=== PATIENT | female | born 1955 | race Caucasian/White ===

== ENCOUNTER 2023-09-17 10:00 | Outpatient (RCR) | payer MEDICARE, BC, SELFPAY | END 2023-11-18 10:12 | disposition home or self-care (01) | LOC: HO.PR 10:00 | PROVIDERS: PCP Internal Medicine; Visit Provider Internal Medicine | DX: J84.10 Pulmonary fibrosis, unspecified (principal) | CPT/HCPCS: 94761; 99215; G0237; G0239 ==

== ENCOUNTER 2023-11-25 13:10 | Emergency (ER) | payer MEDICARE, BC, SELFPAY ==
--- NOTE | ~2023-11-25 | CT_ITS ---
EXAMINATION: CT ANGIOGRAM OF THE CHEST WITH AND WITHOUT CONTRAST (CT PULMONARY ANGIOGRAM FOR PE) CLINICAL INFORMATION: Reason for Exam L sided pleuritic chest pain COMPARISON: None available. TECHNIQUE: Prior to contrast administration, noncontrast localization images were obtained. Subsequently, multidetector volumetric imaging was performed from the thoracic inlet to below the diaphragms following the administration of 80 mL Omnipaque 350 intravenous contrast. No contrast reaction reported Sagittal, coronal, and MIP oblique sagittal reformatted images were obtained on the CT workstation, uploaded to PACS, and reviewed. This CT examination was performed using dose optimization techniques as appropriate, variously including the following: *Automated exposure control *Adjustment of mA and/or kV according to patient size (this includes techniques or standardized protocols for targeted exams where dose is matched to indication/reason for exam; i.e. extremities or head) *Use of iterative reconstruction technique Total exam dose-length product 489 mGy-cm FINDINGS: QUALITY OF STUDY/CONTRAST BOLUS: Satisfactory. PULMONARY ARTERIES: No pulmonary emboli. THORACIC AORTA: No aneurysm. LUNG: No focal consolidation, nodules or masses. PLEURA: No pleural effusion or pneumothorax. MEDIASTINUM: The thyroid lobes are symmetrical and normal. The central trachea and the bronchi widely patent. Heart size and the great vessels are normal caliber. No pericardial effusion seen. No evidence of septal bowing or right heart strain. CORONARY ARTERY CALCIFICATION: None visualized on this study. CHEST WALL/AXILLA: No axillary or internal mammary lymphadenopathy. OSSEOUS STRUCTURES: No aggressive lytic or sclerotic process seen. UPPER ABDOMEN: Visualized liver, spleen, pancreas and bilateral adrenal glands are unremarkable. The gallbladder has been surgically removed. There is nonobstructive 3 mm radiopaque calculi upper pole left kidney. No reflux of contrast into the hepatic veins to suggest elevated right heart pressures. CT/CT angio chest PE protocol IMPRESSION: 1. No evidence of PE. 2. No evidence of aortic aneurysm. 3. The lungs are clear. 4. Suspect small nonobstructive radiopaque calculi upper pole left kidney. VTE: negative.
--- NOTE | ~2023-11-25 | XR_ITS ---
EXAMINATION: XR CHEST CLINICAL INFORMATION: Chest pain and shortness of breath. COMPARISON: None available. TECHNIQUE: Frontal view of the chest was obtained. FINDINGS: The trachea is in normal anatomic position. Heart size appears normal for this projection. There is no consolidation within either lung. No pleural effusion. No pneumothorax. There are surgical clips overlying the right upper quadrant. There are surgical changes status post ACDF. XR/XR chest 1V IMPRESSION: No acute cardiopulmonary disease.
--- NOTE | ~2023-11-25 | US_ITS ---
EXAMINATION: US VENOUS ULTRASOUND WITH DOPPLER LOWER EXTREMITY, LEFT CLINICAL INFORMATION: Left leg pain. COMPARISON: 04/13/2022 TECHNIQUE: Ultrasound of the deep veins is performed from the hip to the calf with compression sonography and color and pulse Doppler assessment. Spectral analysis with color-flow imaging is performed. Technical limitations due to patient's body habitus. FINDINGS: There is normal venous compression and respiratory variation and augmented flow. The visualized common femoral vein, superficial femoral vein, profunda femoral vein, popliteal vein, and the trifurcation region shows no evidence of deep venous thrombosis. If the patient's symptoms persist, followup ultrasound in 5 days 7 days might be of value to exclude proximal propagation from a non-visualized calf vein. US/US venous duplex LE LT IMPRESSION: No DVT demonstrated in the left lower extremity.
--- NOTE | 2023-11-25 13:16 | ECG_ITS ---
Test Reason : PAIN Blood Pressure : / mmHG Vent. Rate : 074 BPM Atrial Rate : 074 BPM P-R Int : 138 ms QRS Dur : 084 ms QT Int : 402 ms P-R-T Axes : 038 -05 010 degrees QTc Int : 446 ms Normal sinus rhythm with sinus arrhythmia Cannot rule out Inferior infarct , age undetermined Abnormal ECG No previous ECGs available Referred By: Elliot Weaver Electronically Signed By:COURTNEY TRIANA MD
--- NOTE | 2023-11-25 13:18 | ED.GENADULT ---
HPI - General Adult General Chief complaint: Dyspnea Stated complaint: lung pain Time Seen by Provider: 11/25/23 13:30 Source: patient and old records reviewed Mode of arrival: ambulatory Limitations: no limitations History of Present Illness HPI narrative: 68 yo female with PMH of ILD, lupus on plaquenil daily methylpred, prior PE not on thinners, CVA, brain aneurysm, HTN, hypothyroidism, hx of mid cerebral artery dissection 2015 no longer on thinners here with c/o L arm pain and L posterior back pain with difficulty breathing and left calf pain for 2 days. No fevers, no cough. Hurts to take a deep breath. Wears 2L NC while sleeping. complaint: L pleuritic chest pain Onset (ago): day(s) (2) Location: chest Radiation: non-radiation Severity: severe Quality: stabbing Pain Consistency: intermittent Relieving factors: none Exacerbating factors: movement and other (inspiration) Associated symptoms: shortness of breath Treatments prior to arrival: none Related Data Previous Rx's Medication Instructions Recorded benzonatate 200 mg capsule 200 mg PO TID PRN cough #30 caps 11/25/23 morphine 15 mg immediate release 15 mg PO Q8H PRN pain #15 tabs 11/25/23 tablet Allergies Allergy/AdvReac Type Severity Reaction Status Date / Time rofecoxib [From Vioxx] Allergy Unknown Verified 11/25/23 13:16 [id number]-[id number] Reductase Allergy Muscle Verified 11/25/23 13:16 Inhibitor cramps Review of Systems Review of Systems: Constitutional : No Weight loss, No Fever, No Chills ENT/Mouth : No sore throat, No Rhinorrhea Eyes: No Eye Pain, No Swelling Cardiovascular : pos Chest Pain, pos SOB, pos Dyspnea on Exertion, No Orthopnea, No Edema, No Palpitations Respiratory : No Cough, No Sputum Gastrointestinal : pos Nausea, No Vomiting, No Diarrhea, No abdominal Pain, No Hematochezia, No Melena Genitourinary : No Dysuria, No Urinary Frequency Musculoskeletal : No joint pain, No Myalgias, No Joint Swelling, pos calf pain Skin : No Skin Lesions, No rash Neuro : pos Weakness, No Numbness, No Dizziness, No Headache Psych : No Anxiety/Panic, No Depression Heme/Lymph: No Bruising, No Lymphadenopathy Endocrine : No Polyuria, No Polydipsia All other systems reviewed and are negative [facility] Social History Social History Alcohol intake: current Alcohol intake frequency: holidays/special occasions only Smoked in Last 30 Days: No Use of substances other than those prescribed or required for medical reasons: No Advance Directives: No Advance Directives Information Provided: No Physical Exam ED Vital Signs: Vital Signs - 24 hr 11/25/23 13:21 11/25/23 14:25 11/25/23 15:28 Temperature 98.0 F 98.2 F Pulse Rate 89 76 107 H Respiratory Rate 25 H 21 H 18 Blood Pressure 155/80 H 166/70 H Pulse Oximetry 98 93 Oxygen Delivery Method Room Air Room Air 11/25/23 17:57 Temperature 98.0 F Pulse Rate 83 Respiratory Rate 16 Blood Pressure 125/60 Pulse Oximetry 93 Oxygen Delivery Method Room Air BMI result Body Mass Index 38.2 Appearance: Alert. Oriented X3. Mild acute distress. Eyes: Pupils equal, round and reactive to light. ENT: Pharynx normal. Neck: Normal inspection. Neck supple. CVS: Normal heart rate and rhythm. Pulses normal. Respiratory: Mild respiratory distress - tachypnea and retractions. Breath sounds very diminished bilaterally splinting on L side Abdomen: Soft and non-tender. Skin: Skin warm and dry. Normal skin color. Normal skin turgor. Extremities: trace bilateral ankle pitting lower extremity edema. c/o L calf ttp Neuro: Oriented X 3. No motor deficit. No sensory deficit. Course Course Course Narrative: RME: 68 yold female with pmh of PE, Instertial lung disease, and MS presents to the ED for SOB and pleurisy for the past two days with cough. Vitals stable, but patient seems to be working to breath. labs and chest xray ordered. Charge nurse informed to bring patient to the ED as soon as possible. Reevaluation(s) Reevaluation #1: states she needs pretreatment for contrast - benadryl and hydrocortisone ordered Reevaluation #2: signed out to Dr. Florentino Medications Administered Discontinued Medications Generic Name Dose Route Start Last Admin Trade Name Freq PRN Reason Stop Dose Admin Albuterol Sulfate 2.5 mg/ 0 mg 11/25/23 14:14 11/25/23 14:25 Albuterol/Ipratropium 3 ml INHALE 11/25/23 14:15 Not Given ONCE ONE Levalbuterol HCl 2.5 mg/ 0 mg 11/25/23 14:18 11/25/23 14:23 Ipratropium Wiley 0.5 mg INHALE 11/25/23 14:19 5 dose ONCE ONE Administration Diphenhydramine HCl 50 mg 11/25/23 15:12 11/25/23 15:23 Diphenhydramine Hcl 50 Mg/Ml Vial IVPUSH 11/25/23 15:13 50 mg ONCE ONE Administration Hydrocortisone Sodium Succinate 100 mg 11/25/23 15:12 11/25/23 15:23 Hydrocortisone Sod Succ/Pf 100 Mg Vial IVPUSH 11/25/23 15:13 100 mg ONCE ONE Administration Iohexol 65 ml 11/25/23 16:15 11/25/23 16:16 Iohexol 350 Mg/Ml 100 Ml Infus..Btl IV 11/25/23 16:16 65 ml ONCE ONE Administration Morphine Sulfate 2 mg 11/25/23 13:58 11/25/23 14:19 Morphine Sulfate 2 Mg/Ml Cartridge IVPUSH 11/25/23 13:59 2 mg ONCE ONE Administration Protocol Morphine Sulfate 4 mg 11/25/23 17:46 11/25/23 17:56 Morphine Sulfate 4 Mg/Ml Cartridge IVPUSH 11/25/23 17:47 4 mg ONCE ONE Administration Protocol Ondansetron HCl 4 mg 11/25/23 13:58 11/25/23 14:19 Ondansetron Hcl 4 Mg/2 Ml Vial IVPUSH 11/25/23 13:59 4 mg ONCE ONE Administration Medical Decision Making Medical Decision Making MDM Narrative: 68 yo female with PMH of ILD, lupus on plaquenil daily methylpred, prior PE not on thinners, CVA, brain aneurysm, HTN, hypothyroidism, hx of mid cerebral artery dissection 2015 no longer on thinners here with 2 days of L posterior pleuritic thoracic pain no infectious symptoms and c/o L calf pain at this time EKG, labs, bronch protocol low dose morphine she is already finishing a methlprednisolone taper. She will get CTA PE given high risk for VTE. DVT study of LLE ordered. IV morphine for pain ordered. Patient's CTA chest negative for PE likely patient had pleuritic chest pain secondary to lupus and fibrosis discharge patient home advised to follow with purchasing coordinator Differential Diagnosis Differential Diagnoses: The differential diagnosis associated with the presentation includes pleurisy, VTE, pneumonia Admission/Observation Consideration of admission/observation: Escalation of care including admission/observation considered Lab Data MDM Lab Attestation statement: I reviewed the patient's lab results. 11/25/23 14:30 11/25/23 14:31 Labs: Lab Results 11/25/23 11/25/23 11/25/23 Range/Units 14:30 14:31 14:34 WBC 11.8 H (4.8-10.8) X10*3/uL RBC 5.30 (4.20-5.50) X10*6/uL Hgb 14.0 (12.0-16.0) g/dl Hct 43.5 (37.0-47.0) % MCV 82.1 (80.0-98.0) fL MCH 26.4 L (27.0-33.0) pg MCHC 32.2 (31.0-35.0) g/dl RDW 14.6 (11.0-16.0) % Plt Count 268 (160-400) X10*3/uL MPV 9.0 L (9.4-12.3) fL Immature Gran % (Auto) 1.4 H (0.0-0.4) % Neut % (Auto) 76.2 H (45-73) % Lymph % (Auto) 15.0 L (20-40) % Luce % (Auto) 6.8 (2-11) % Eos % (Auto) 0.3 (0-4) % Baso % (Auto) 0.3 (0-2) % Lymph # (Auto) 1.8 (1.2-4.9) X10*3/uL Luce # (Auto) 0.8 (0.1-1.2) X10*3/uL Eos # (Auto) 0.0 (0.0-0.4) X10*3/uL Baso # (Auto) 0.0 (0.0-0.2) X10*3/uL Abs Immat Gran (auto) 0.17 H (0.00-0.03) X10*3/uL Absolute Neuts (auto) 9.0 H (2.0-8.3) x10*3/uL Absolute Nucleated RBC 0.000 (0.0-0.012) X10*3/uL Nucleated RBC % (auto) 0.0 (0.0-0.2) /100WBC PT 10.7 L (11.1-13.3) SEC INR 0.9 (0.9-1.1) APTT 23.2 L (26.0-36.8) SEC Sodium 145 (135-145) mmol/L Potassium 3.8 (3.3-5.1) mmol/L Chloride 110 H (96-108) mmol/L Carbon Dioxide 27 (22-29) mmol/L Anion Gap 12 (12-20) BUN 15 (9-16) mg/dL Creatinine 0.67 (0.5-1.4) mg/dL Estim Creat Clear Calc 96.9 Estimated GFR > 60 Random Glucose 102 (60-115) mg/dL Calcium 9.8 (8.4-10.2) mg/dL Total Bilirubin 0.4 (0.0-1.0) mg/dL AST 9 (5-31) U/L ALT 12 (0-31) U/L Alkaline Phosphatase 71 (39-117) U/L Troponin I High Sens < 2.7 (<3.5-17.0) ng/L B-Natriuretic Peptide 49 (<100) pg/mL Total Protein 6.5 (6.5-8.0) g/dL Albumin 3.9 (3.5-5.0) g/dL Influenza Type A (PCR) NEGATIVE (Negative) Influenza Type B (PCR) NEGATIVE (Negative) RSV RNA Qual (PCR) NEGATIVE (Negative) SARS-CoV-2 RNA (RT-PCR) NEGATIVE (Negative) Independent Interpretation I performed an independent interpretation of an: EKG, Plain X-Ray (normal ), Ultrasound (no DVT) and CT Scan Interpretation: Rate: 74 Rhythm: NSR [facility]: left Normal P waves. Normal GERARDO. Normal QRS complex. ST T wave : no ELA, inverted t wave III and V1 qTC: 446 prior studies: no acute ischemia The study has been interpreted contemporaneously by me. . Radiology Impression Discussion of test interpretation with radiology: I have reviewed the radiologist's reading. Discharge Plan Discharge Clinical Impression: Pleuritic chest pain Patient Disposition: Home, Self-Care Instructions: Pleurisy (ED) Additional Instructions: Take pain medication as prescribed Follow-up with your lung specialist Continue rest of your medication Prescriptions: New morphine 15 mg tablet 15 mg PO Q8H PRN (Reason: pain) Qty: 15 0RF Rx Instructions: Partial Fill upon patient request. benzonatate 200 mg capsule 200 mg PO TID PRN (Reason: cough) Qty: 30 0RF Referrals: Kyrie Bliss MD [Physician] - 2 weeks Interventions: ED Discharge Assessment Last Done: 11/25/23 19:21 Discharge Date/Time: 11/25/23 19:21
[2023-11-25 13:21] VITALS: BP 155/80; PULSE 89; RESP 25; TEMP 36.7; O2SAT 98; BMI 38.2
[2023-11-25] MEDS: Morphine Sulfate 2 MG/ML CARTRIDGE IVPUSH (14:19)
[2023-11-25] MEDS: ondansetron HCL 4 MG/2 ML VIAL IVPUSH (14:19)
[2023-11-25] MEDS: levalbuterol HCL 2.5 MG, Ipratropium Bromide 0.5 MG INHALE (14:23)
[2023-11-25 14:25] VITALS: PULSE 76; RESP 21; O2SAT 97
[2023-11-25 14:35] LABS: MANUAL DIFF FLAG NO
[2023-11-25 14:40] LABS: Basophils Percent Auto 0.3 % (0-2); Eosinophils Percent Auto 0.3 % (0-4); Hematocrit 43.5 % (37.0-47.0); Imm Gran Abs Auto 0.17 X10*3/uL (0.00-0.03); Imm Gran Pct Auto 1.4 % (0.0-0.4); Lymphocytes Absolute Auto 1.8 X10*3/uL (1.2-4.9); Mean Corpuscular HGB Conc 32.2 g/dl (31.0-35.0); Mean Corpuscular Hemoglobin 26.4 pg (27.0-33.0); Mean Corpuscular Volume 82.1 fL (80.0-98.0); Monocytes Absolute Auto 0.8 X10*3/uL (0.1-1.2); Monocytes Percent Auto 6.8 % (2-11); Neutrophils Percent Auto 76.2 % (45-73); Platelet Count 268 X10*3/uL (160-400); Red Cell Distribution Width 14.6 % (11.0-16.0); White Blood Count 11.8 X10*3/uL (4.8-10.8)
[2023-11-25 15:00] LABS: B Type Natriuretic Peptide 49 pg/mL (<100)
[2023-11-25 15:01] LABS: INTERNATIONAL NORM RATIO 0.9 (0.9-1.1); Prothrombin Time 10.7 SEC (11.1-13.3); Troponin-I High Sensitivity < 2.7 ng/L (<3.5-17.0)
[2023-11-25 15:02] LABS: Alanine Aminotransferase 12 U/L (0-31); Albumin Level 3.9 g/dL (3.5-5.0); Alkaline Phosphatase 71 U/L (39-117); Anion Gap 12 (12-20); Aspartate Amino Transferase 9 U/L (5-31); Bilirubin Total 0.4 mg/dL (0.0-1.0); Blood Urea Nitrogen 15 mg/dL (9-16); Calcium 9.8 mg/dL (8.4-10.2); Carbon Dioxide 27 mmol/L (22-29); Chloride 110 mmol/L (96-108); Creatinine Clr Calc Pharmacy 96.9; Estimated Glomerular Filt Rate > 60; Glucose Random 102 mg/dL (60-115); Potassium 3.8 mmol/L (3.3-5.1); Sodium 145 mmol/L (135-145); Total Protein 6.5 g/dL (6.5-8.0)
[2023-11-25 15:06] LABS: Partial Thromboplastin Time 23.2 SEC (26.0-36.8)
[2023-11-25] MEDS: diphenhydrAMINE HCL 50 MG/ML VIAL IVPUSH (15:23)
[2023-11-25] MEDS: Hydrocortisone Sod Succ/PF 100 MG VIAL IVPUSH (15:23)
[2023-11-25 15:28] VITALS: BP 166/70; PULSE 107; RESP 18; TEMP 36.8; O2SAT 93
--- NOTE | 2023-11-25 15:33 | PC.NURSE ---
vss and up to date aside from being tachycardic. sinus tachy on the technology lead. pt verbalizing pain level decreased to a 5/10 post medication administration. medication also administered per provider order. pt waiting for ultrasound results at this time. bedside for support. plan of care ongoing. call rondon placed within reach.
[2023-11-25 15:34] LABS: Influenza A PCR NEGATIVE (Negative); Influenza B PCR NEGATIVE (Negative); Resp Syncy Virus RNA Qual PCR NEGATIVE (Negative); SARS COV2 PCR INHOUSE NEGATIVE (Negative)
--- NOTE | 2023-11-25 16:06 | PC.NURSE ---
pt to CT at this time.
[2023-11-25] MEDS: iohexoL 350 MG/ML 100 ML INFUS..BTL 65 ML IV (16:16)
[2023-11-25] MEDS: Morphine Sulfate 4 MG/ML CARTRIDGE IVPUSH (17:56)
[2023-11-25 17:57] VITALS: BP 125/60; PULSE 83; RESP 16; TEMP 36.7; O2SAT 93
== END 2023-11-25 19:21 | disposition home or self-care (01) ==
PROVIDERS: Physician Assistant; Emergency Provider Internal Medicine; PCP Internal Medicine Nephrology
DX: R07.81 Pleurodynia (principal); M79.662 Pain in left lower leg; I10 Essential (primary) hypertension; Z86.711 Personal history of pulmonary embolism; Z86.73 Personal history of transient ischemic attack (TIA), and cerebral infarction without residual deficits; Z11.52 Encounter for screening for COVID-19; Z20.828 Contact with and (suspected) exposure to other viral communicable diseases
CPT/HCPCS: 0241U; 71045; 71275; 80053; 83880; 84484; 85025; 85610; 85730; 93005; 93971; 94640; 96374; 96375; 96376; 99285; J1200; J1720; J2270; J2405; Q9967

== ENCOUNTER → 2023-11-25 13:16 | Outpatient (BNV) | payer MEDICARE, BC, SELFPAY | PROVIDERS: Emergency Provider Emergency Medicine; PCP Internal Medicine Nephrology; Visit Provider Internal Medicine Cardiovascular Disease | DX: R94.31 Abnormal electrocardiogram [ECG] [EKG] (principal) | CPT/HCPCS: 93010 ==

== ENCOUNTER 2024-01-17 13:33 | Outpatient (AMB) | payer MEDICARE, BC, SELFPAY ==
--- NOTE | 2024-01-17 13:37 | MHC.OFFVIS ---
Vital Signs 01/17/24 13:38 Height 5 ft 6.5 in Weight 240 lb 4.862 oz BMI 38.2 Pulse 84 Pulse Source Pulse Oximeter Pulse Oximetry (%) 97 Oxygen Delivery Method Room Air Intake Visit Reasons: lung pain Nurse Auditor Required: No Allergies rofecoxib [From Vioxx] Allergy (Verified 01/17/24 13:39) Unknown [id number] Reductase Inhibitor Allergy (Verified 01/17/24 13:39) Muscle cramps HPI Comments Details: The patient is here for pulmonary evaluation. The patient is a 68 year woman with a known history of lupus in addition to underlying pulmonary fibrosis. The patient did have a severe case of COVID requiring hospital level of care. CT scan during that admission back in 2020 demonstrated evidence of ground-glass opacities. Subsequent imaging studies demonstrated reticular changes consistent with pulmonary fibrosis. In the meantime the patient does follow-up the arthritis center for her connective tissue disease. He was diagnosed with lupus. Currently on hydrochloroquine. She continues to have significant musculoskeletal discomfort inflammatory arthritis. The patient back in November 2023 develop worsening chest pain in addition to shortness of breath. She was brought to the [facility] ER where she was evaluated. She had a CTA that I personally reviewed. No evidence of any pulmonary emboli. Although the patient did have significant pneumonitis in addition to pleural thickening suggesting a pleuritis related to her underlying connective tissue disease. She responded to additional Medrol therapy. At this point the patient continues to have pleuritic chest pain and shortness of breath. Although better overall. She was hoping to start immunomodulator therapy such as mycophenolate. In the past she had been offered other immuno modulator such as methotrexate but she was concerned about the potential side effects. Explained to her the mycophenolate also has significant side effects although better option then being on the chronic steroids. Will have to monitor closely her laboratories while she is on it. Therefore she will have blood work before she begins it. Will start slowly and workup to the lowest most effective dose. In addition to that the patient will have additional blood work done to assess for other etiologies for the pneumonitis. The patient also should have a repeat CT scan of the chest to assess the response to the immunomodulator therapy. [facility] Medical History (Updated 01/19/24 @ 21:14 by Kyrie Bliss MD) Asthma Lupus Pneumonitis Pulmonary fibrosis Social History Alcohol intake: current Alcohol intake frequency: holidays/special occasions only Review of Systems Const Denies fever(s) Eyes Denies change in vision ENT Reports dysphagia and Reports nasal congestion Card Denies chest pain and Reports dyspnea on exertion Resp Reports cough and Reports dyspnea on exertion GI Reports dysphagia Musc Reports myalgias Skin/Breast Denies rash Neuro Reports no additional complaints Sheldon/Lymph Denies easy bleeding Physical Exam Vital Signs: Last Vital Signs Pulse 84 01/17/24 13:38 Pulse Ox 97 01/17/24 13:38 Oxygen Delivery Method Room Air 01/17/24 13:38 BMI result Body Mass Index 38.2 Const General: comfortable Orientation/consciousness: patient oriented x3 HEENT Head: Yes normocephalic Neck Neck: Yes supple Chest Chest palpation & inspection: normal inspection of the chest Resp Effort & Inspection: normal respiratory effort Auscultation: crackles bilateral (end inspiratory) at the base Cardio Heart sounds: S1 normal heart sound present and S2 normal heart sound present GI Palpation (GI): Soft to palpation Skin General skin exam: no rashes or lesions noted Neuro General: patient oriented x3 Extrem General: Yes edema Results Reviewed Results Reviewed: personally reviewed CT chest 2020, 2021 from [facility]. 2022 CT chest from [facility] with pneumonitis (not mentioned on the report) Assessment & Plan Assessment & Plan (1) Pulmonary fibrosis: Code(s): J84.10 - Pulmonary fibrosis, unspecified Category: Medical (2) Pneumonitis: Code(s): J98.4 - Other disorders of lung Category: Medical (3) Lupus: Code(s): M32.9 - Systemic lupus erythematosus, unspecified Category: Medical (4) Asthma: Code(s): J45.909 - Unspecified asthma, uncomplicated Category: Medical Qualifiers: Asthma severity: mild Asthma persistence: intermittent Asthma complication type: uncomplicated Qualified Code(s): J45.20 - Mild intermittent asthma, uncomplicated Plan Bloodwork start Cellcept 500mg-> BID continue medrol CAROL as needed continue singulair continue OFEV if pulmonary fibrosis is progressive CT chest 2 months F/U 2 months Orders: Orders Complete Blood Count Auto Diff 01/17/24 J69.0 - Pneumonitis due to inhalation of food and vomit, J84.10 - Pulmonary fibrosis, unspecified Immunoglobulins,IgG IgA IgM 01/17/24 J69.0 - Pneumonitis due to inhalation of food and vomit, J84.10 - Pulmonary fibrosis, unspecified Angiotensin Converting Enzyme 01/17/24 J69.0 - Pneumonitis due to inhalation of food and vomit, J84.10 - Pulmonary fibrosis, unspecified Scleroderma 70 Antibody 01/17/24 J69.0 - Pneumonitis due to inhalation of food and vomit, J84.10 - Pulmonary fibrosis, unspecified Liver Panel 01/17/24 J69.0 - Pneumonitis due to inhalation of food and vomit, J84.10 - Pulmonary fibrosis, unspecified T Spot TB 01/17/24 J69.0 - Pneumonitis due to inhalation of food and vomit, J84.10 - Pulmonary fibrosis, unspecified CT chest wo IV con 6 Weeks J98.4 - Other disorders of lung Overnight Pulse Oximetry 01/17/24 J84.10 - Pulmonary fibrosis, unspecified Basic Metabolic Panel 01/17/24 J69.0 - Pneumonitis due to inhalation of food and vomit, J84.10 - Pulmonary fibrosis, unspecified Immunoglobulin G Subclasses 01/17/24 J69.0 - Pneumonitis due to inhalation of food and vomit, J84.10 - Pulmonary fibrosis, unspecified Immunoglobulin E 01/17/24 J69.0 - Pneumonitis due to inhalation of food and vomit, J84.10 - Pulmonary fibrosis, unspecified Hypersensitive Pneumonitis Prf 01/17/24 J69.0 - Pneumonitis due to inhalation of food and vomit, J84.10 - Pulmonary fibrosis, unspecified, R91.8 - Other nonspecific abnormal finding of lung field Erythrocyte Sedimentation Rate 01/17/24 J69.0 - Pneumonitis due to inhalation of food and vomit, J84.10 - Pulmonary fibrosis, unspecified Medications: New mycophenolate mofetil 500 mg PO BID 30 days 60 tabs 6RF Coding Level of Care Code New Pt Level 5 (50386) Diagnoses Pulmonary fibrosis J84.10 Pneumonitis J98.4 Lupus M32.9 Mild intermittent asthma without complication J45.20 Asthma severity: mild Asthma persistence: intermittent Asthma complication type: uncomplicated Time Spent (min) 60
[2024-01-17 13:38] VITALS: PULSE 84; O2SAT 97; BMI 38.2
== END 2024-01-17 14:22 | disposition home or self-care (01) ==
PROVIDERS: PCP Internal Medicine Nephrology; Visit Provider Hospitalist
DX: J84.10 Pulmonary fibrosis, unspecified (principal); J98.4 Other disorders of lung; M32.9 Systemic lupus erythematosus, unspecified; J45.20 Mild intermittent asthma, uncomplicated
CPT/HCPCS: 99205

== ENCOUNTER → 2024-01-17 13:33 | Outpatient (BNVA) | payer MEDICARE, BC, SELFPAY | PROVIDERS: PCP Internal Medicine Nephrology; Visit Provider Hospitalist | DX: J84.10 Pulmonary fibrosis, unspecified (principal); J98.4 Other disorders of lung; M32.9 Systemic lupus erythematosus, unspecified; J45.20 Mild intermittent asthma, uncomplicated; Z79.899 Other long term (current) drug therapy | CPT/HCPCS: 99202 ==

== ENCOUNTER 2024-01-20 10:56 | Outpatient (REF) | payer MEDICARE, BC, SELFPAY ==
[2024-01-20 11:40] LABS: MANUAL DIFF FLAG NO
[2024-01-20 12:48] LABS: Hematocrit 43.2 % (37.0-47.0); Hemoglobin 13.8 g/dl (12.0-16.0); Mean Corpuscular HGB Conc 31.9 g/dl (31.0-35.0); Mean Corpuscular Hemoglobin 26.8 pg (27.0-33.0); Mean Corpuscular Volume 83.9 fL (80.0-98.0); Red Blood Count 5.15 X10*6/uL (4.20-5.50); Red Cell Distribution Width 14.9 % (11.0-16.0); White Blood Count 12.1 X10*3/uL (4.8-10.8)
[2024-01-20 12:49] LABS: Basophils Absolute Auto 0.1 X10*3/uL (0.0-0.2); Basophils Percent Auto 0.5 % (0-2); Eosinophils Absolute Auto 0.1 X10*3/uL (0.0-0.4); Eosinophils Percent Auto 0.5 % (0-4); Imm Gran Abs Auto 0.14 X10*3/uL (0.00-0.03); Imm Gran Pct Auto 1.2 % (0.0-0.4); Lymphocytes Absolute Auto 2.3 X10*3/uL (1.2-4.9); Lymphocytes Percent Auto 18.6 % (20-40); Mean Platelet Volume 9.8 fL (9.4-12.3); Monocytes Percent Auto 8.6 % (2-11); Neutrophils Absolute Auto 8.6 x10*3/uL (2.0-8.3); Neutrophils Percent Auto 70.6 % (45-73); Platelet Count 242 X10*3/uL (160-400)
[2024-01-20 13:03] LABS: Alanine Aminotransferase 14 U/L (0-31); Albumin Level 3.8 g/dL (3.5-5.0); Alkaline Phosphatase 76 U/L (39-117); Anion Gap 14 (12-20); Aspartate Amino Transferase 12 U/L (5-31); Bilirubin Direct 0.1 mg/dL (0.0-0.5); Bilirubin Total 0.4 mg/dL (0.0-1.0); Blood Urea Nitrogen 18 mg/dL (9-16); Carbon Dioxide 22 mmol/L (22-29); Chloride 110 mmol/L (96-108); Estimated Glomerular Filt Rate > 60; Glucose Random 111 mg/dL (60-115); Potassium 4.2 mmol/L (3.3-5.1); Sodium 142 mmol/L (135-145); Total Protein 6.6 g/dL (6.5-8.0)
[2024-01-20 13:12] LABS: Erythrocyte Sedimentation Rate 18 MM/HR (0-20)
[2024-01-21 14:28] LABS: Immunoglobulin E 45 kU/L (<OR=114)
[2024-01-21 20:49] LABS: Scleroderma 70 Antibody <1.0 NEG AI (<1.0 NEG)
[2024-01-22 11:58] LABS: IgA 177 mg/dL (70-320); IgG 431 mg/dL (600-1540); IgM 56 mg/dL (50-300)
[2024-01-22 17:22] LABS: Immunoglobulin G Subclass 1 194 mg/dL (382-929); Immunoglobulin G Subclass 2 165 mg/dL (241-700); Immunoglobulin G Subclass 3 15 mg/dL (22-178); Immunoglobulin G Subclass 4 18.8 mg/dL (4-86); Immunoglobulin G Total 417 mg/dL (600-1540)
[2024-01-23 04:08] LABS: TS Negative Control Passed; TS Panel A 0; TS Panel B 0; TS Positive Control Passed; TSpotTB Negative (Negative)
[2024-01-26 13:09] LABS: Asperg fumigatus Precip Abs NEGATIVE (NEGATIVE); Micropoly faeni Abs NEGATIVE (NEGATIVE); Pigeon serum Abs NEGATIVE (NEGATIVE); Saccharo pora viridis Abs NEGATIVE (NEGATIVE); Thermo candidus Abs NEGATIVE (NEGATIVE); Thermoa vulgaris #1 NEGATIVE (NEGATIVE)
== END 2024-01-20 10:57 | disposition home or self-care (01) ==
LOC: HO.LAB 10:56
PROVIDERS: PCP Internal Medicine; Visit Provider Hospitalist
DX: J84.10 Pulmonary fibrosis, unspecified (principal); J69.0 Pneumonitis due to inhalation of food and vomit; R91.8 Other nonspecific abnormal finding of lung field
CPT/HCPCS: 36415; 80048; 80076; 82164; 82784; 82785; 85025; 85652; 86235; 86331; 86481; 86606; 86609

== ENCOUNTER 2024-02-28 13:34 | Outpatient (REF) | payer MEDICARE, BC, SELFPAY ==
--- NOTE | ~2024-02-28 | CT_ITS ---
EXAMINATION: CT CHEST WITHOUT CONTRAST CLINICAL INFORMATION: Pneumonitis. COMPARISON: CTA chest 01/25/2024. TECHNIQUE: Multidetector volumetric CT imaging of the chest was done. Axial MIP volume rendering provided. Sagittal and coronal reformatted images were obtained. This CT examination was performed using dose optimization techniques as appropriate, variously including the following: *Automated exposure control *Adjustment of mA and/or kV according to patient size (this includes techniques or standardized protocols for targeted exams where dose is matched to indication/reason for exam; i.e. extremities or head) *Use of iterative reconstruction technique DLP: 233 mGy-cm FINDINGS: LUNGS: Mild subpleural reticular changes and groundglass changes with a lower lobe predominance. There is mild bronchiectasis in the involved areas of lung. Findings are nonspecific but could relate to interstitial lung disease. There is mild airway wall thickening consistent with chronic airways disease. No suspicious pulmonary nodules. There are few scattered micronodules for which no imaging follow-up is recommended as per Fleischner Society guidelines. MEDIASTINUM: No adenopathy. No pericardial effusion. CORONARY ARTERY CALCIFICATION: Likely mild LAD and RCA calcium. PLEURA: There is no pleural effusion. No pleural mass or thickening. AXILLA: No lymphadenopathy. UPPER ABDOMEN: Cholecystectomy. OSSEOUS STRUCTURES: Degenerative changes in the spine. CT/CT chest wo IV con IMPRESSION: Mild subpleural reticular changes, groundglass changes, and bronchiectasis with lower lobe predominance. Findings are nonspecific but may relate to interstitial lung disease. Overall changes are moderately improved when compared to the previous examination. Clinical correlation necessary. Fleischner guidelines were followed.
== END 2024-02-28 13:35 | disposition home or self-care (01) ==
LOC: HO.CT 13:34
PROVIDERS: PCP Internal Medicine; Visit Provider Hospitalist
DX: J98.4 Other disorders of lung (principal)
CPT/HCPCS: 71250

== ENCOUNTER 2024-03-03 13:36 | Outpatient (AMB) | payer MEDICARE, BC, SELFPAY ==
--- NOTE | 2024-03-03 13:48 | A.OFFVIS_ITS ---
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 The patient did have a severe case of COVID requiring hospital level of care. CT scan during that admission back in 2020 demonstrated evidence of ground-glass opacities. Subsequent imaging studies demonstrated reticular changes consistent with pulmonary fibrosis. In the meantime the patient does follow-up the arthritis center for her connective tissue disease. He was diagnosed with lupus. Currently on hydrochloroquine. She continues to have significant musculoskeletal discomfort inflammatory arthritis. The patient back in November 2023 develop worsening chest pain in addition to shortness of breath. She was brought to the [facility] ER where she was evaluated. She had a CTA that I personally reviewed. No evidence of any pulmonary emboli. Although the patient did have significant pneumonitis in addition to pleural thickening suggesting a pleuritis related to her underlying connective tissue disease. She responded to additional Medrol therapy. At this point the patient continues to have pleuritic chest pain and shortness of breath. Although better overall. She was hoping to start immunomodulator therapy such as mycophenolate. In the past she had been offered other immuno modulator such as methotrexate but she was concerned about the potential side effects. Explained to her the mycophenolate also has significant side effects although better option then being on the chronic steroids. Will have to monitor closely her laboratories while she is on it. Therefore she will have blood work before she begins it. Will start slowly and workup to the lowest most effective dose. In addition to that the patient will have additional blood work done to assess for other etiologies for the pneumonitis. The patient also should have a repeat CT scan of the chest to assess the response to the immunomodulator therapy. 03/03/2024 the patient is here for a pulmonary follow-up visit. Overall she is doing okay. She had a tough springtime with significant allergies although she has getting a little better at this time. She also started the mycophenolate. Did initially caused her to have significant fatigue. She did develop tolerance and she has been tolerating better. The patient is able to then increase it to twice a day causing her some headaches. However, she is also developed tolerance and she is doing better with it. We did review her recent CT scan of the chest and we did compare to her previous CTA. Significant improvement in the ground-glass opacity throughout. She still has some patchy areas but very minimal. She does have some scarring at the right base likely from further organization of the inflammatory process. Significantly better. At this point she is on adequate dose based on her response to therapy. The patient also continues have infections. She has had issues with sinuses and issues with her eyes with current infections and now immunocompromised on the immunomodulator therapy. We did check her IgG levels and she has a significantly low IgG level at this time. Therefore, I do believe that with the ongoing respiratory infections and other non respiratory infections treatment with IVIG will be very affecting beneficial. Will go ahead and start the process to have her start IVIG every 4 weeks. The patient also has been using her PAP therapy. I believe she uses the BiPAP. Is followed closely by her doctors in [place]. Recently was adjusted. When she had an overnight oximetry but was on room air so therefore not very helpful she did desaturate but again she was not on her PAP therapy. [facility] Medical History (Updated 03/03/24 @ 23:04 by Kyrie Bliss MD) MAURO treated with BiPAP Hypogammaglobulinemia Asthma Lupus Pneumonitis Pulmonary fibrosis Social History (Updated 03/03/24 @ 13:53 by Enid Ash Florinda) Alcohol intake: current Alcohol intake frequency: holidays/special occasions only Patient Tobacco Use Status: Former Tobacco user Tobacco use type: Cigarette Years Smoked: 20 Years Review of Systems Const Denies fever(s) Eyes Denies change in vision ENT Reports dysphagia and Reports nasal congestion Card Denies chest pain and Reports dyspnea on exertion Resp Reports cough and Reports dyspnea on exertion GI Reports dysphagia Musc Reports myalgias Skin/Breast Denies rash Neuro Reports no additional complaints Sheldon/Lymph Denies easy bleeding Physical Exam Vital Signs: Last Vital Signs Pulse 72 03/03/24 13:49 Pulse Ox 95 03/03/24 13:49 Oxygen Delivery Method Room Air 03/03/24 13:49 BMI result Body Mass Index 38.2 Const General: comfortable Orientation/consciousness: patient oriented x3 HEENT Head: Yes normocephalic Neck Neck: Yes supple Chest Chest palpation & inspection: normal inspection of the chest Resp Effort & Inspection: normal respiratory effort Auscultation: no crackles and diminished lung sounds Cardio Heart sounds: S1 normal heart sound present and S2 normal heart sound present GI Palpation (GI): Soft to palpation Skin General skin exam: no rashes or lesions noted Neuro General: patient oriented x3 Extrem General: Yes edema Results Reviewed Results Reviewed: personally reviewed CT chest with inveal improvement of diffuse GGO, still with patchy areas on GGO and some minimal scarring RLL Assessment & Plan Assessment & Plan (1) Pulmonary fibrosis: Code(s): J84.10 - Pulmonary fibrosis, unspecified Category: Medical (2) Pneumonitis: Code(s): J98.4 - Other disorders of lung Category: Medical (3) Lupus: Code(s): M32.9 - Systemic lupus erythematosus, unspecified Category: Medical (4) Asthma: Code(s): J45.909 - Unspecified asthma, uncomplicated Category: Medical Qualifiers: Asthma complication type: uncomplicated Asthma persistence: intermittent Asthma severity: mild Qualified Code(s): J45.20 - Mild intermittent asthma, uncomplicated (5) Hypogammaglobulinemia: Code(s): D80.1 - Nonfamilial hypogammaglobulinemia Category: Medical (6) MAURO treated with BiPAP: Code(s): G47.33 - Obstructive sleep apnea (adult) (pediatric) Category: Medical Plan continue Cellcept 500mg PO BID, will have serial labs continue Wixela continue medrol CAROL as needed continue singulair start IVIG 40gm q4 weeks continue BIPAP F/U 3-4 months Coding Level of Care Code Est Pt Level 5 (78902) Diagnoses Pulmonary fibrosis J84.10 Pneumonitis J98.4 Lupus M32.9 Mild intermittent asthma without complication J45.20 Asthma complication type: uncomplicated Asthma persistence: intermittent Asthma severity: mild Hypogammaglobulinemia D80.1 MAURO treated with BiPAP G47.33 Time Spent (min) 40
[2024-03-03 13:49] VITALS: PULSE 72; O2SAT 95; BMI 38.2
== END 2024-03-03 14:26 | disposition home or self-care (01) ==
PROVIDERS: PCP Internal Medicine Nephrology; Visit Provider Hospitalist
DX: J84.10 Pulmonary fibrosis, unspecified (principal); J98.4 Other disorders of lung; M32.9 Systemic lupus erythematosus, unspecified; J45.20 Mild intermittent asthma, uncomplicated; D80.1 Nonfamilial hypogammaglobulinemia; G47.33 Obstructive sleep apnea (adult) (pediatric)
CPT/HCPCS: 99215

== ENCOUNTER → 2024-03-03 13:36 | Outpatient (BNVA) | payer MEDICARE, BC, SELFPAY | PROVIDERS: PCP Internal Medicine Nephrology; Visit Provider Hospitalist | DX: J84.10 Pulmonary fibrosis, unspecified (principal); J98.4 Other disorders of lung; J45.20 Mild intermittent asthma, uncomplicated; M32.9 Systemic lupus erythematosus, unspecified; D80.1 Nonfamilial hypogammaglobulinemia; G47.33 Obstructive sleep apnea (adult) (pediatric); Z79.899 Other long term (current) drug therapy | CPT/HCPCS: 99212 ==

== ENCOUNTER 2024-03-31 09:20 | Outpatient (REF) | payer MEDICARE, BC, SELFPAY | END 2024-03-31 09:21 | disposition home or self-care (01) | LOC: HO.LAB 09:20 | PROVIDERS: Visit Provider Hospitalist | DX: D80.1 Nonfamilial hypogammaglobulinemia (principal) | CPT/HCPCS: 36415; 86317 ==

== ENCOUNTER 2024-04-14 08:19 | Outpatient (AMB) | payer MEDICARE, BC, SELFPAY ==
[2024-04-14 08:34] VITALS: PULSE 71; O2SAT 96; BMI 37.2
--- NOTE | 2024-04-14 08:34 | A.OFFVIS_ITS ---
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 The patient did have a severe case of COVID requiring hospital level of care. CT scan during that admission back in 2020 demonstrated evidence of ground-glass opacities. Subsequent imaging studies demonstrated reticular changes consistent with pulmonary fibrosis. In the meantime the patient does follow-up the arthritis center for her connective tissue disease. He was diagnosed with lupus. Currently on hydrochloroquine. She continues to have significant musculoskeletal discomfort inflammatory arthritis. The patient back in November 2023 develop worsening chest pain in addition to shortness of breath. She was brought to the [facility] ER where she was evaluated. She had a CTA that I personally reviewed. No evidence of any pulmonary emboli. Although the patient did have significant pneumonitis in addition to pleural thickening suggesting a pleuritis related to her underlying connective tissue disease. She responded to additional Medrol therapy. At this point the patient continues to have pleuritic chest pain and shortness of breath. Although better overall. She was hoping to start immunomodulator therapy such as mycophenolate. In the past she had been offered other immuno modulator such as methotrexate but she was concerned about the potential side effects. Explained to her the mycophenolate also has significant side effects although better option then being on the chronic steroids. Will have to monitor closely her laboratories while she is on it. Therefore she will have blood work before she begins it. Will start slowly and workup to the lowest most effective dose. In addition to that the patient will have additional blood work done to assess for other etiologies for the pneumonitis. The patient also should have a repeat CT scan of the chest to assess the response to the immunomodulator therapy. 03/03/2024 the patient is here for a pulmonary follow-up visit. Overall she is doing okay. She had a tough springtime with significant allergies although she has getting a little better at this time. She also started the mycophenolate. Did initially caused her to have significant fatigue. She did develop tolerance and she has been tolerating better. The patient is able to then increase it to twice a day causing her some headaches. However, she is also developed tolerance and she is doing better with it. We did review her recent CT scan of the chest and we did compare to her previous CTA. Significant improvement in the ground-glass opacity throughout. She still has some patchy areas but very minimal. She does have some scarring at the right base likely from further organization of the inflammatory process. Significantly better. At this point she is on adequate dose based on her response to therapy. The patient also continues have infections. She has had issues with sinuses and issues with her eyes with current infections and now immunocompromised on the immunomodulator therapy. We did check her IgG levels and she has a significantly low IgG level at this time. Therefore, I do believe that with the ongoing respiratory infections and other non respiratory infections treatment with IVIG will be very affecting beneficial. Will go ahead and start the process to have her start IVIG every 4 weeks. The patient also has been using her PAP therapy. I believe she uses the BiPAP. Is followed closely by her doctors in [place]. Recently was adjusted. When she had an overnight oximetry but was on room air so therefore not very helpful she did desaturate but again she was not on her PAP therapy. 04/14/2024 the patient is here for a follow-up visit. The patient has been struggling. She had COVID about a month ago. Then after that she is having significant sinusitis. Significant good chest congestion and cough. She has had also postnasal drip. Cough is moderate severe. Sometimes is barky in nature. The patient does have hypogammaglobulinemia and does take immunosuppressant therapy so therefore she is at risk for worsening infectious process. We did try start her on IVIG but her insurance company required additional information. We did get titers of her pneumococcal vaccine. Appears that about half of the titers are low suggesting a ineffective response to the vaccine. In addition to that with the increasing infectious processes and respiratory illnesses she definitely will benefit from IVIG. The patient also has lupus. She has been on immunosuppressant therapy for lupus. This also flaring up may have been activator precipitated by her COVID infection. She will need additional steroids. 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 She can have her levels checked again. In the meantime the patient will require antibiotics and also additional Medrol. In addition to that the patient mentioned that when she was initially evaluated for hypogammaglobulinemia she was found to have abnormal protein levels suggesting of multiple myeloma. Then, additional testing may less likely. She has not been evaluated for any blood dyscrasias. But with her immunocompromised condition, hypoglobulinemia chronic infections this should be further evaluated. Therefore will refer her to Hematology. [facility] Medical History (Updated 04/14/24 @ 13:19 by Kyrie Bliss MD) MAURO treated with BiPAP Hypogammaglobulinemia Asthma Lupus Pneumonitis Pulmonary fibrosis Social History (Updated 03/03/24 @ 13:53 by EUFEMIA Whalen) Alcohol intake: current Alcohol intake frequency: holidays/special occasions only Patient Tobacco Use Status: Former Tobacco user Tobacco use type: Cigarette Years Smoked: 20 Years Review of Systems Const Reports fatigue, Denies fever(s) and Reports headache(s) Eyes Denies change in vision ENT Reports dysphagia, Reports headache(s), Reports nasal congestion, Reports nasal discharge, Reports nasal obstruction, Reports sinus pain and Reports sinus pressure Card Denies chest pain and Reports dyspnea on exertion Resp Reports chest congestion, Reports cough and Reports dyspnea on exertion GI Reports dysphagia Musc Reports myalgias, Reports arthralgias and Reports joint swelling Skin/Breast Denies rash Neuro Reports no additional complaints and Reports headache(s) Endo Reports fatigue Sheldon/Lymph Denies easy bleeding Physical Exam Vital Signs: Last Vital Signs Pulse 71 04/14/24 08:34 Pulse Ox 96 04/14/24 08:34 Oxygen Delivery Method Room Air 04/14/24 08:34 BMI result Body Mass Index 37.2 Const General: comfortable Orientation/consciousness: patient oriented x3 HEENT Head: Yes normocephalic Neck Neck: Yes supple Chest Chest palpation & inspection: normal inspection of the chest Resp Effort & Inspection: normal respiratory effort Auscultation: no crackles and diminished lung sounds Cardio Heart sounds: S1 normal heart sound present and S2 normal heart sound present GI Palpation (GI): Soft to palpation Skin General skin exam: no rashes or lesions noted Neuro General: patient oriented x3 Extrem General: Yes edema Office Meds methylprednisolone sod suc(PF) 125 mg/2 mL solution for injection Performing Provider: Kyrie Bliss MD Performing Location: [facility] Administered by: Madison Berkowitz LPN on 04/14/24 09:12 Dose Route Admin Location Dispensed Lot Number Expiration Date NDC Fishing Hand 125 mg IM Rt buttock 2 ea [id number] 05/16/26 0337-1825-48 [employer] [place] [employer] Comments: One vial / 2ml dispensed Assessment & Plan Assessment & Plan (1) Pulmonary fibrosis: Code(s): J84.10 - Pulmonary fibrosis, unspecified Category: Medical (2) Pneumonitis: Code(s): J98.4 - Other disorders of lung Category: Medical (3) Lupus: Code(s): M32.9 - Systemic lupus erythematosus, unspecified Category: Medical (4) Asthma: Code(s): J45.909 - Unspecified asthma, uncomplicated Category: Medical Qualifiers: Asthma complication type: uncomplicated Asthma persistence: intermittent Asthma severity: mild Qualified Code(s): J45.20 - Mild intermittent asthma, uncomplicated (5) Hypogammaglobulinemia: Code(s): D80.1 - Nonfamilial hypogammaglobulinemia Category: Medical (6) MAURO treated with BiPAP: Code(s): G47.33 - Obstructive sleep apnea (adult) (pediatric) Category: Medical (7) Sinusitis: Code(s): J32.9 - Chronic sinusitis, unspecified Category: Medical Qualifiers: Sinusitis location: unspecified location Chronicity: subacute Qualified Code(s): J01.90 - Acute sinusitis, unspecified Plan continue Cellcept 500mg PO BID, will have serial labs start Doxycycline solumedrol 125mg IM, Medrol pack taper to baseline dose continue Wixela continue medrol CAROL as needed continue singulair start IVIG 40gm [id number], will send appeal note hematology referral to assess for MM/MGUS continue BIPAP F/U 2-3 months Orders: Orders AMB Methylprednisolone Sod Succ Injection Today J45.20 - Mild intermittent asthma, uncomplicated, J84.10 - Pulmonary fibrosis, unspecified Referrals Hematology & Oncology Referral D47.2 - Monoclonal gammopathy, D80.1 - Nonfamilial hypogammaglobulinemia Medications: New ondansetron 4 mg PO Q8H PRN 20 tabs 3RF nausea and vomiting 14 days methylprednisolone (Medrol) 8 mg (2 x 4 mg) PO DAILY 60 tabs 0RF 30 days doxycycline monohydrate 100 mg PO BID 28 tabs 0RF 14 days Coding Level of Care Code Est Pt Level 5 (98930) Complex EM visit Add On G2211 Diagnoses Pulmonary fibrosis J84.10 Pneumonitis J98.4 Lupus M32.9 Mild intermittent asthma without complication J45.20 Asthma complication type: uncomplicated Asthma persistence: intermittent Asthma severity: mild Hypogammaglobulinemia D80.1 MAURO treated with BiPAP G47.33 Subacute sinusitis, unspecified location J01.90 Sinusitis location: unspecified location Chronicity: subacute Time Spent (min) 45
== END 2024-04-14 09:08 | disposition home or self-care (01) ==
PROVIDERS: PCP Internal Medicine; Visit Provider Hospitalist
DX: J84.10 Pulmonary fibrosis, unspecified (principal); J98.4 Other disorders of lung; M32.9 Systemic lupus erythematosus, unspecified; J45.20 Mild intermittent asthma, uncomplicated; D80.1 Nonfamilial hypogammaglobulinemia; G47.33 Obstructive sleep apnea (adult) (pediatric); J01.90 Acute sinusitis, unspecified
CPT/HCPCS: 99215

== ENCOUNTER → 2024-04-14 08:19 | Outpatient (BNVA) | payer MEDICARE, BC, SELFPAY | PROVIDERS: PCP Internal Medicine; Visit Provider Hospitalist | DX: J84.10 Pulmonary fibrosis, unspecified (principal); J98.4 Other disorders of lung; J45.20 Mild intermittent asthma, uncomplicated; J01.90 Acute sinusitis, unspecified; G47.33 Obstructive sleep apnea (adult) (pediatric); D80.1 Nonfamilial hypogammaglobulinemia; M32.9 Systemic lupus erythematosus, unspecified | CPT/HCPCS: 96372; 99212; J2919 ==

== ENCOUNTER → 2024-05-12 11:03 | Outpatient (BNV) | payer MEDICARE, BC, SELFPAY | PROVIDERS: PCP Internal Medicine; Referring Provider Hospitalist; Visit Provider Internal Medicine Medical Oncology | DX: D47.2 Monoclonal gammopathy (principal); D80.1 Nonfamilial hypogammaglobulinemia | CPT/HCPCS: 99204; 99213 ==

== ENCOUNTER 2024-05-22 10:04 | Outpatient (AMB) | payer MEDICARE, BC, SELFPAY ==
[2024-05-22 10:23] VITALS: BP 126/70; PULSE 60; O2SAT 97; BMI 38.2
--- NOTE | 2024-05-22 10:23 | A.OFFVIS_ITS ---
Vital Signs 05/22/24 10:23 Height 5 ft 6 in Weight 237 lb BMI 38.2 BP 126/70 Blood Pressure Location Lt brachial Position Sitting Pulse 60 Pulse Source Pulse Oximeter Pulse Oximetry (%) 97 Oxygen Delivery Method Room Air Intake Visit Reasons: ILD/CPAP Continuous Oracle Database Consultant Required: No Allergies rofecoxib [From Vioxx] Allergy (Verified 05/22/24 10:26) Unknown Csrgoco-YBH-ThN Reductase Inhibitor Allergy (Verified 05/22/24 10:26) Muscle cramps HPI Comments Details: The patient is a 68 year woman with a known history of lupus in addition to underlying pulmonary fibrosis. The patient did have a severe case of COVID requiring hospital level of care. CT scan during that admission back in 2020 demonstrated evidence of ground-glass opacities. Subsequent imaging studies demonstrated reticular changes consistent with pulmonary fibrosis. In the meantime the patient does follow-up the arthritis center for her connective tissue disease. He was diagnosed with lupus. Currently on hydrochloroquine. She continues to have significant musculoskeletal discomfort inflammatory arthritis. The patient back in November 2023 develop worsening chest pain in addition to shortness of breath. She was brought to the [facility] ER where she was evaluated. She had a CTA that I personally reviewed. No evidence of any pulmonary emboli. Although the patient did have significant pneumonitis in addition to pleural thickening suggesting a pleuritis related to her underlying connective tissue disease. She responded to additional Medrol therapy. At this point the patient continues to have pleuritic chest pain and shortness of breath. Although better overall. She was hoping to start immunomodulator therapy such as mycophenolate. In the past she had been offered other immuno modulator such as methotrexate but she was concerned about the potential side effects. Explained to her the mycophenolate also has significant side effects although better option then being on the chronic steroids. Will have to monitor closely her laboratories while she is on it. Therefore she will have blood work before she begins it. Will start slowly and workup to the lowest most effective dose. In addition to that the patient will have additional blood work done to assess for other etiologies for the pneumonitis. The patient also should have a repeat CT scan of the chest to assess the response to the immunomodulator therapy. 03/03/2024 the patient is here for a pulmonary follow-up visit. Overall she is doing okay. She had a tough springtime with significant allergies although she has getting a little better at this time. She also started the mycophenolate. Did initially caused her to have significant fatigue. She did develop tolerance and she has been tolerating better. The patient is able to then increase it to twice a day causing her some headaches. However, she is also developed tolerance and she is doing better with it. We did review her recent CT scan of the chest and we did compare to her previous CTA. Significant improvement in the ground-glass opacity throughout. She still has some patchy areas but very minimal. She does have some scarring at the right base likely from further organization of the inflammatory process. Significantly better. At this point she is on adequate dose based on her response to therapy. The patient also continues have infections. She has had issues with sinuses and issues with her eyes with current infections and now immunocompromised on the immunomodulator therapy. We did check her IgG levels and she has a significantly low IgG level at this time. Therefore, I do believe that with the ongoing respiratory infections and other non respiratory infections treatment with IVIG will be very affecting beneficial. Will go ahead and start the process to have her start IVIG every 4 weeks. The patient also has been using her PAP therapy. I believe she uses the BiPAP. Is followed closely by her doctors in [place]. Recently was adjusted. When she had an overnight oximetry but was on room air so therefore not very helpful she did desaturate but again she was not on her PAP therapy. 04/14/2024 the patient is here for a follow-up visit. The patient has been struggling. . However, her insurance denied herShe had COVID about a month ago. Then after that she is having significant sinusitis. Significant good chest congestion and cough. She has had also postnasal drip. Cough is moderate severe. Sometimes is barky in nature. The patient does have hypogammaglobulinemia and does take immunosuppressant therapy so therefore she is at risk for worsening infectious process. We did try start her on IVIG but her insurance company required additional information. We did get titers of her pneumococcal vaccine. Appears that about half of the titers are low suggesting a ineffective response to the vaccine. In addition to that with the increasing infectious processes and respiratory illnesses she definitely will benefit from IVIG. The patient also has lupus. She has been on immunosuppressant therapy f or lupus. This also flaring up may have been activator precipitated by her COVID infection. She will need additional steroids. 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 She can have her levels checked again. In the meantime the patient will require antibiotics and also additional Medrol. In addition to that the patient mentioned that when she was initially evaluated for hypogammaglobulinemia she was found to have abnormal protein levels suggesting of multiple myeloma. Then, additional testing may less likely. She has not been evaluated for any blood dyscrasias. But with her immunocompromised condition, hypoglobulinemia chronic infections this should be further evaluated. Therefore will refer her to Hematology. 05/22/2024 the patient is here for pulmonary follow-up visit. She is still struggling with recurrent infections. She is developing again significant sinus congestion and sinus pressure. Will go ahead and start her on prophylactic anti biotics. She has significant hypogammaglobulinemia with decrease in her pneumococcal titers after appropriate vaccination. Therefore, she needs to start IVIG, however, her insurance denied her the much needed therapy. She is going to make her Appeal to the insurance company. Unfortunately, the insurance company also denied my ability to request an appeal. Although it is very clear the patient needs therapy and is better of time for the insurance company to approve it. The patient continues on the CellCept. She also continues on the Medrol. She will be starting Benlysta by her laborer concrete paving. Hopefully we can wean off some of the Medrol when she is on the Benlysta. From a interstitial lung disease he seems to be responding to the CellCept. She also did follow-up with Hematology. It appears that the blood work for evaluation of multiple myeloma is negative which is reassuring. However she will follow-up with Hematology for further input. [facility] Medical History (Updated 05/24/24 @ 21:42 by Kyrie Bliss MD) MAURO treated with BiPAP Hypogammaglobulinemia Asthma Lupus Pneumonitis Pulmonary fibrosis Family History (Updated 05/12/24 @ 11:09 by Roya Edmonds) Maternal Aunt Brain abscess Bone cancer Maternal Aunt Lung cancer Melanoma Maternal Uncle Melanoma Bone cancer Lung cancer Mother Thyroid cancer Uterine cancer Social History (Updated 05/12/24 @ 11:10 by Roya Edmonds) Household Members: Spouse Alcohol intake: current Alcohol intake frequency: holidays/special occasions only Patient Tobacco Use Status: Former Tobacco user Tobacco use type: Cigarette Years Smoked: 20 Years service: No Current occupational status: retired Review of Systems Const Reports fatigue, Denies fever(s) and Reports headache(s) Eyes Denies change in vision ENT Reports dysphagia, Reports headache(s), Reports nasal congestion, Reports nasal discharge, Reports nasal obstruction, Reports sinus pain and Reports sinus pressure Card Denies chest pain and Reports dyspnea on exertion Resp Reports chest congestion, Reports cough and Reports dyspnea on exertion GI Reports dysphagia Musc Reports myalgias, Reports arthralgias and Reports joint swelling Skin/Breast Denies rash Neuro Reports no additional complaints and Reports headache(s) Endo Reports fatigue Sheldon/Lymph Denies easy bleeding Physical Exam Vital Signs: Last Vital Signs Pulse 60 05/22/24 10:23 BP 126/70 05/22/24 10:23 Pulse Ox 97 05/22/24 10:23 Oxygen Delivery Method Room Air 05/22/24 10:23 BMI result Body Mass Index 38.2 Const General: comfortable Orientation/consciousness: patient oriented x3 HEENT Head: Yes normocephalic Neck Neck: Yes supple Chest Chest palpation & inspection: normal inspection of the chest Resp Effort & Inspection: normal respiratory effort Auscultation: no crackles and diminished lung sounds Cardio Heart sounds: S1 normal heart sound present and S2 normal heart sound present GI Palpation (GI): Soft to palpation Skin General skin exam: no rashes or lesions noted Neuro General: patient oriented x3 Extrem General: Yes edema Assessment & Plan Assessment & Plan (1) Pulmonary fibrosis: Code(s): J84.10 - Pulmonary fibrosis, unspecified Category: Medical (2) Pneumonitis: Comment: better Code(s): J98.4 - Other disorders of lung Category: Medical (3) Lupus: Code(s): M32.9 - Systemic lupus erythematosus, unspecified Category: Medical (4) Asthma: Code(s): J45.909 - Unspecified asthma, uncomplicated Category: Medical Qualifiers: Asthma complication type: uncomplicated Asthma persistence: intermittent Asthma severity: mild Qualified Code(s): J45.20 - Mild intermittent asthma, uncomplicated (5) Hypogammaglobulinemia: Code(s): D80.1 - Nonfamilial hypogammaglobulinemia Category: Medical (6) MAURO treated with BiPAP: Code(s): G47.33 - Obstructive sleep apnea (adult) (pediatric) Category: Medical (7) Sinusitis: Code(s): J32.9 - Chronic sinusitis, unspecified Category: Medical Qualifiers: Chronicity: subacute Sinusitis location: unspecified location Qualified Code(s): J01.90 - Acute sinusitis, unspecified Plan continue Cellcept 500mg PO BID, will have serial labs Awaiting Benlysta start Azithromycin MWF, EKG continue Wixela continue medrol CAROL as needed continue singulair awaiting to start IVIG 40gm [id number]. Insurance denied, awaiting appeal from pt continue BIPAP F/U 2-3 months Orders: Orders ECG 12 lead EKG 05/22/24 J44.9 - Chronic obstructive pulmonary disease, unspecified Medications: New azithromycin Take 1 tablet on Saturday/Saturday/Saturday 250 mg PO 3XW 12 tabs 6RF 28 days K21.9 - Gastro-esophageal reflux disease without esophagitis Coding Level of Care Code Est Pt Level 5 (61719) Complex EM visit Add On G2211 Diagnoses Pulmonary fibrosis J84.10 Pneumonitis J98.4 Lupus M32.9 Mild intermittent asthma without complication J45.20 Asthma complication type: uncomplicated Asthma persistence: intermittent Asthma severity: mild Hypogammaglobulinemia D80.1 MAURO treated with BiPAP G47.33 Subacute sinusitis, unspecified location J01.90 Chronicity: subacute Sinusitis location: unspecified location Time Spent (min) 35
== END 2024-05-22 10:50 | disposition home or self-care (01) ==
PROVIDERS: PCP Internal Medicine Nephrology; Visit Provider Hospitalist
DX: J84.10 Pulmonary fibrosis, unspecified (principal); J98.4 Other disorders of lung; M32.9 Systemic lupus erythematosus, unspecified; J45.20 Mild intermittent asthma, uncomplicated; D80.1 Nonfamilial hypogammaglobulinemia; G47.33 Obstructive sleep apnea (adult) (pediatric); J01.90 Acute sinusitis, unspecified
CPT/HCPCS: 99215; G2211

== ENCOUNTER → 2024-05-22 10:04 | Outpatient (BNVA) | payer MEDICARE, BC, SELFPAY | PROVIDERS: PCP Internal Medicine Nephrology; Visit Provider Hospitalist | DX: J44.9 Chronic obstructive pulmonary disease, unspecified (principal); J84.10 Pulmonary fibrosis, unspecified; J69.0 Pneumonitis due to inhalation of food and vomit; J01.90 Acute sinusitis, unspecified; M32.9 Systemic lupus erythematosus, unspecified; J45.20 Mild intermittent asthma, uncomplicated; G47.33 Obstructive sleep apnea (adult) (pediatric); D80.1 Nonfamilial hypogammaglobulinemia; Z86.16 Personal history of COVID-19 | CPT/HCPCS: 99212 ==

== ENCOUNTER → 2024-06-26 11:50 | Outpatient (REF) | payer MEDICARE, BC, SELFPAY ==
--- NOTE | 2024-06-26 13:12 | ECG_ITS ---
Test Reason : CP Blood Pressure : / mmHG Vent. Rate : 072 BPM Atrial Rate : 072 BPM P-R Int : 150 ms QRS Dur : 082 ms QT Int : 392 ms P-R-T Axes : 003 -13 019 degrees QTc Int : 429 ms Sinus rhythm with occasional Premature ventricular complexes Cannot rule out Inferior infarct (cited on or before 25-NOV-2023) Abnormal ECG When compared with ECG of 25-NOV-2023 13:43, Premature ventricular complexes are now Present Referred By: Kyrie Bliss Electronically Signed By:COURTNEY TRIANA MD
== END ==
LOC: HO.CARD 11:50
PROVIDERS: Visit Provider Hospitalist
DX: J44.9 Chronic obstructive pulmonary disease, unspecified (principal)
CPT/HCPCS: 93005

== ENCOUNTER → 2024-06-26 13:12 | Outpatient (BNV) | payer MEDICARE, BC, SELFPAY | PROVIDERS: Visit Provider Internal Medicine Cardiovascular Disease | DX: I49.3 Ventricular premature depolarization (principal) | CPT/HCPCS: 93010 ==

== ENCOUNTER 2024-07-31 10:42 | Outpatient (AMB) | payer MEDICARE, BC, SELFPAY ==
[2024-07-31 10:46] VITALS: BP 114/66; PULSE 72; O2SAT 97; BMI 39.3
--- NOTE | 2024-07-31 10:46 | MHC.OFFVIS ---
Vital Signs 07/31/24 10:46 Height 5 ft 6 in Weight 243 lb 9.773 oz BMI 39.3 BP 114/66 Blood Pressure Location Rt brachial Position Sitting Pulse 72 Pulse Source Pulse Oximeter Pulse Oximetry (%) 97 Oxygen Delivery Method Room Air Intake Visit Reasons: ILD/CPAP Continuous Forms Analysis Manager Required: No Aircraft Instrument Repairer: Aircraft Instrument Repairer offered & declined Accompanied by: Self / Same As Patient Allergies rofecoxib [From Vioxx] Allergy (Verified 07/31/24 10:51) Unknown Cftwqsf-HCZ-UwI Reductase Inhibitor Allergy (Verified 07/31/24 10:51) Muscle cramps Medication List - Last Reconciled 07/31/24 by Madison Berkowitz LPN amlodipine 10 mg PO DAILY azithromycin 250 mg PO 3XW 90 days benzonatate 200 mg PO TID PRN fpokyacazd-xsjuaeuxiyfah-fspd 50-325-40 mg 1 tab PO Q6H PRN cetirizine (Zyrtec) 10 mg PO DAILY PRN fluticasone propion-salmeterol 250-50 mcg/dose (Wixela Inhub) 1 ea inhalation BID fluticasone propionate 50 mcg/actuation 1 spray intranasal Q12H hydroxychloroquine 200 mg PO BID levalbuterol tartrate 45 mcg/actuation 1 - 2 puffs inhalation Q4H PRN levothyroxine (Synthroid) 200 mcg PO DAILY losartan 25 mg PO DAILY methylprednisolone (Medrol) 8 mg (2 x 4 mg) PO DAILY 30 days metoprolol tartrate 25 mg PO BID montelukast 10 mg PO DAILY mycophenolate mofetil 500 mg PO BID 90 days naltrexone 4.5 mg PO DAILY nebulizers As directed omeprazole 10 mg PO DAILY semaglutide (Ozempic) 1 mg subcut DIRECTED sodium chloride 3% 3 mL inhalation BID HPI Comments Details: The patient is a 69 year woman with a known history of lupus in addition to underlying pulmonary fibrosis. The patient did have a severe case of COVID requiring hospital level of care. CT scan during that admission back in 2020 demonstrated evidence of ground-glass opacities. Subsequent imaging studies demonstrated reticular changes consistent with pulmonary fibrosis. In the meantime the patient does follow-up the arthritis center for her connective tissue disease. He was diagnosed with lupus. Currently on hydrochloroquine. She continues to have significant musculoskeletal discomfort inflammatory arthritis. The patient back in November 2023 develop worsening chest pain in addition to shortness of breath. She was brought to the [facility] ER where she was evaluated. She had a CTA that I personally reviewed. No evidence of any pulmonary emboli. Although the patient did have significant pneumonitis in addition to pleural thickening suggesting a pleuritis related to her underlying connective tissue disease. She responded to additional Medrol therapy. At this point the patient continues to have pleuritic chest pain and shortness of breath. Although better overall. She was hoping to start immunomodulator therapy such as mycophenolate. In the past she had been offered other immuno modulator such as methotrexate but she was concerned about the potential side effects. Explained to her the mycophenolate also has significant side effects although better option then being on the chronic steroids. Will have to monitor closely her laboratories while she is on it. Therefore she will have blood work before she begins it. Will start slowly and workup to the lowest most effective dose. In addition to that the patient will have additional blood work done to assess for other etiologies for the pneumonitis. The patient also should have a repeat CT scan of the chest to assess the response to the immunomodulator therapy. 03/03/2024 the patient is here for a pulmonary follow-up visit. Overall she is doing okay. She had a tough springtime with significant allergies although she has getting a little better at this time. She also started the mycophenolate. Did initially caused her to have significant fatigue. She did develop tolerance and she has been tolerating better. The patient is able to then increase it to twice a day causing her some headaches. However, she is also developed tolerance and she is doing better with it. We did review her recent CT scan of the chest and we did compare to her previous CTA. Significant improvement in the ground-glass opacity throughout. She still has some patchy areas but very minimal. She does have some scarring at the right base likely from further organization of the inflammatory process. Significantly better. At this point she is on adequate dose based on her response to therapy. The patient also continues have infections. She has had issues with sinuses and issues with her eyes with current infections and now immunocompromised on the immunomodulator therapy. We did check her IgG levels and she has a significantly low IgG level at this time. Therefore, I do believe that with the ongoing respiratory infections and other non respiratory infections treatment with IVIG will be very affecting beneficial. Will go ahead and start the process to have her start IVIG every 4 weeks. The patient also has been using her PAP therapy. I believe she uses the BiPAP. Is followed closely by her doctors in [place]. Recently was adjusted. When she had an overnight oximetry but was on room air so therefore not very helpful she did desaturate but again she was not on her PAP therapy. 04/14/2024 the patient is here for a follow-up visit. The patient has been struggling. . However, her insurance denied herShe had COVID about a month ago. Then after that she is having significant sinusitis. Significant good chest congestion and cough. She has had also postnasal drip. Cough is moderate severe. Sometimes is barky in nature. The patient does have hypogammaglobulinemia and does take immunosuppressant therapy so therefore she is at risk for worsening infectious process. We did try start her on IVIG but her insurance company required additional information. We did get titers of her pneumococcal vaccine. Appears that about half of the titers are low suggesting a ineffective response to the vaccine. In addition to that with the increasing infectious processes and respiratory illnesses she definitely will benefit from IVIG. The patient also has lupus. She has been on immunosuppressant therapy for lupus. This also flaring up may have been activator precipitated by her COVID infection. She will need additional steroids. The patient will follow-up with her experienced truck driver in the next few weeks. She can have her levels checked again. In the meantime the patient will require antibiotics and also additional Medrol. In addition to that the patient mentioned that when she was initially evaluated for hypogammaglobulinemia she was found to have abnormal protein levels suggesting of multiple myeloma. Then, additional testing may less likely. She has not been evaluated for any blood dyscrasias. But with her immunocompromised condition, hypoglobulinemia chronic infections this should be further evaluated. Therefore will refer her to Hematology. 05/22/2024 the patient is here for pulmonary follow-up visit. She is still struggling with recurrent infections. She is developing again significant sinus congestion and sinus pressure. Will go ahead and start her on prophylactic antibiotics. She has significant hypogammaglobulinemia with decrease in her pneumococcal titers after appropriate vaccination. Therefore, she needs to start IVIG, however, her insurance denied her the much needed therapy. She is going to make her Appeal to the insurance company. Unfortunately, the insurance company also denied my ability to request an appeal. Although it is very clear the patient needs therapy and is better of time for the insurance company to approve it. The patient continues on the CellCept. She also continues on the Medrol. She will be starting Benlysta by her experienced truck driver. Hopefully we can wean off some of the Medrol when she is on the Benlysta. From a interstitial lung disease he seems to be responding to the CellCept. She also did follow-up with Hematology. It appears that the blood work for evaluation of multiple myeloma is negative which is reassuring. However she will follow-up with Hematology for further input. 07/31/2024 the patient is here for a pulmonary follow-up visit. Overall she has other complaints now. She is having hard time walking and significant muscle discomfort. She did have her CPK checked and they were considered to be normal. She did look at her medications in the only medication she could find that could have that adverse effect would be the mycophenolate. In addition to that her liver function studies have been climbing. Therefore she will stop it. She has been under Benlysta that is been helping her arthritis. Will have to make sure that her pulmonary interstitial lung disease has not get worse but will go ahead and stop the mycophenolate right now. She has been on the Medrol. In addition to that she was having some increased palpitations in potential arrhythmias. Therefore, the azithromycin was stopped for safety reasons. Although she did feel better after stopping it. She is immunocompromised with significant hypogammaglobulinemia and therefore she needs to be on some prophylactic medication specially she is having some issues with cough right now chest congestion. Will go ahead and send a doxycycline which she tolerates. She will take it twice a day for a couple weeks and then decrease it to once a day. I which point we can consider keeping a prophylactic dose of 1 daily. She is currently requesting a a p.o. of her denial for her IVIG therapy for her significant hypogammaglobulinemia. We tested her pneumococcal titers which were significantly low and her IgG levels are also significantly low. The patient has had recurrent infections both upper and lower respiratory infections and she did requires antibiotics frequently. Will go ahead and request additional blood work right now and she will submit her p.o. to her insurance company so they can provide her the medicine that she needs. In the meantime she continues use oxygen. She does use [employer] for the [employer]. She has a concentrator at home and she has a smaller POC unit that she uses with activity. She should continue with the oxygen therapy as it has been affecting beneficial and will go ahead and make sure that [employer] has a proper paperwork for her to continue to use their services. [facility] Medical History (Updated 07/20/24 @ 09:55 by Kyrie Bliss MD) Abnormal finding on EKG MAURO treated with BiPAP Hypogammaglobulinemia Asthma Lupus Pneumonitis Pulmonary fibrosis Family History (Updated 05/12/24 @ 11:09 by Roya Edmonds) Maternal Aunt Brain abscess Bone cancer Maternal Aunt Lung cancer Melanoma Maternal Uncle Melanoma Bone cancer Lung cancer Mother Thyroid cancer Uterine cancer Social History (Updated 07/31/24 @ 10:52 by Madison Berkowitz LPN) Household Members: Spouse Alcohol intake: current Alcohol intake frequency: holidays/special occasions only Patient Tobacco Use Status: Former Tobacco user Tobacco use type: Cigarette Years Smoked: 20 Years service: No Current occupational status: retired Review of Systems Const Reports fatigue, Denies fever(s) and Reports headache(s) Eyes Denies change in vision ENT Reports dysphagia, Reports headache(s), Reports nasal congestion, Reports nasal discharge, Reports nasal obstruction, Reports sinus pain and Reports sinus pressure Card Denies chest pain, Reports palpitations and Reports dyspnea on exertion Resp Reports chest congestion, Reports cough and Reports dyspnea on exertion GI Reports dysphagia Musc Reports abnormal gait, Reports myalgias, Reports arthralgias, Reports joint swelling and Reports muscle weakness Skin/Breast Denies rash Neuro Reports no additional complaints, Reports abnormal gait and Reports headache(s) Endo Reports fatigue and Reports palpitations Sheldon/Lymph Denies easy bleeding Physical Exam Vital Signs: Last Vital Signs Pulse 72 07/31/24 10:46 BP 114/66 07/31/24 10:46 Pulse Ox 97 07/31/24 10:46 Oxygen Delivery Method Room Air 07/31/24 10:46 BMI result Body Mass Index 39.3 Const General: comfortable Orientation/consciousness: patient oriented x3 HEENT Head: Yes normocephalic Neck Neck: Yes supple Chest Chest palpation & inspection: normal inspection of the chest Resp Effort & Inspection: normal respiratory effort Auscultation: no crackles and diminished lung sounds Cardio Heart sounds: S1 normal heart sound present and S2 normal heart sound present GI Palpation (GI): Soft to palpation Skin General skin exam: no rashes or lesions noted Neuro General: patient oriented x3 Extrem General: Yes edema Results Reviewed Results Reviewed: personally reviewed CT chest with inveal improvement of diffuse GGO, still with patchy areas on GGO and some minimal scarring RLL Assessment & Plan Assessment & Plan (1) Pulmonary fibrosis: Code(s): J84.10 - Pulmonary fibrosis, unspecified Category: Medical (2) Pneumonitis: Comment: better Code(s): J98.4 - Other disorders of lung Category: Medical (3) Lupus: Code(s): M32.9 - Systemic lupus erythematosus, unspecified Category: Medical (4) Asthma: Code(s): J45.909 - Unspecified asthma, uncomplicated Category: Medical Qualifiers: Asthma complication type: uncomplicated Asthma persistence: intermittent Asthma severity: mild Qualified Code(s): J45.20 - Mild intermittent asthma, uncomplicated (5) Hypogammaglobulinemia: Code(s): D80.1 - Nonfamilial hypogammaglobulinemia Category: Medical (6) MAURO treated with BiPAP: Code(s): G47.33 - Obstructive sleep apnea (adult) (pediatric) Category: Medical (7) Sinusitis: Code(s): J32.9 - Chronic sinusitis, unspecified Category: Medical Qualifiers: Chronicity: subacute Sinusitis location: unspecified location Qualified Code(s): J01.90 - Acute sinusitis, unspecified Plan stop Cellcept 500mg PO BID due to potential side effects continue Benlysta qmonth stop Azithromycin MWF due to ectopy and abn EKG start doxycycline continue Wixela continue medrol CAROL as needed continue singulair awaiting to start IVIG 40gm [id number]. Insurance denied, awaiting appeal from pt continue BIPAP Continue oxygen therapy. Patient uses imaging. 2 L pulse with activity and 2 L at nighttime Requesting an overnight oximetry on BiPAP to see if she benefits from continuing oxygen at nighttime while using her PAP therapy bloodwork, ?polymyositis F/U 2-3 months Orders: Orders Overnight Pulse Oximetry 07/31/24 J84.10 - Pulmonary fibrosis, unspecified LISANDRA 1 Antibody 07/31/24 D80.1 - Nonfamilial hypogammaglobulinemia, J84.10 - Pulmonary fibrosis, unspecified, M32.9 - Systemic lupus erythematosus, unspecified Aldolase 07/31/24 D80.1 - Nonfamilial hypogammaglobulinemia, J84.10 - Pulmonary fibrosis, unspecified, M32.9 - Systemic lupus erythematosus, unspecified Immunoglobulin G Subclasses 07/31/24 D80.1 - Nonfamilial hypogammaglobulinemia, J84.10 - Pulmonary fibrosis, unspecified, M32.9 - Systemic lupus erythematosus, unspecified Immunoglobulins,IgG IgA IgM 07/31/24 D80.1 - Nonfamilial hypogammaglobulinemia, J84.10 - Pulmonary fibrosis, unspecified, M32.9 - Systemic lupus erythematosus, unspecified PM SCL 75 Ab 07/31/24 D80.1 - Nonfamilial hypogammaglobulinemia, J84.10 - Pulmonary fibrosis, unspecified, M32.9 - Systemic lupus erythematosus, unspecified Medications: New doxycycline monohydrate 100 mg PO BID 60 tabs 0RF 30 days Changed From methylprednisolone (Medrol) 8 mg (2 x 4 mg) PO DAILY 30 days 60 tabs 0RF To methylprednisolone (Medrol) 8 mg (2 x 4 mg) PO BID 120 tabs 0RF 30 days Discontinued mycophenolate mofetil Discontinued Reason: Doctor's Order 500 mg PO BID 90 days 180 tabs 3RF J84.10 - Pulmonary fibrosis, unspecified, J98.4 - Other disorders of lung, M32.9 - Systemic lupus erythematosus, unspecified Coding Level of Care Code Est Pt Level 5 (26109) Complex EM visit Add On G2211 Diagnoses Pulmonary fibrosis J84.10 Pneumonitis J98.4 Lupus M32.9 Mild intermittent asthma without complication J45.20 Asthma complication type: uncomplicated Asthma persistence: intermittent Asthma severity: mild Hypogammaglobulinemia D80.1 MAURO treated with BiPAP G47.33 Subacute sinusitis, unspecified location J01.90 Chronicity: subacute Sinusitis location: unspecified location Time Spent (min) 35
== END 2024-07-31 11:18 | disposition home or self-care (01) ==
PROVIDERS: PCP Internal Medicine Nephrology; Visit Provider Hospitalist
DX: J84.10 Pulmonary fibrosis, unspecified (principal); J98.4 Other disorders of lung; M32.9 Systemic lupus erythematosus, unspecified; J45.20 Mild intermittent asthma, uncomplicated; D80.1 Nonfamilial hypogammaglobulinemia; G47.33 Obstructive sleep apnea (adult) (pediatric); J01.90 Acute sinusitis, unspecified
CPT/HCPCS: 99214; G2211

== ENCOUNTER → 2024-07-31 10:42 | Outpatient (BNVA) | payer MEDICARE, BC, SELFPAY | PROVIDERS: PCP Internal Medicine Nephrology; Visit Provider Hospitalist | DX: J84.10 Pulmonary fibrosis, unspecified (principal); J98.4 Other disorders of lung; M32.9 Systemic lupus erythematosus, unspecified; J45.20 Mild intermittent asthma, uncomplicated; D80.1 Nonfamilial hypogammaglobulinemia; G47.33 Obstructive sleep apnea (adult) (pediatric); J01.90 Acute sinusitis, unspecified | CPT/HCPCS: 99212 ==

== ENCOUNTER 2024-08-04 09:24 | Outpatient (REF) | payer MEDICARE, BC, SELFPAY ==
[2024-08-04 10:16] LABS: MANUAL DIFF FLAG NO
[2024-08-04 11:24] LABS: Basophils Absolute Auto 0.1 X10*3/uL (0.0-0.2); Basophils Percent Auto 0.6 % (0-2); Eosinophils Percent Auto 0.2 % (0-4); Hematocrit 46.5 % (37.0-47.0); Hemoglobin 14.7 g/dl (12.0-16.0); Imm Gran Pct Auto 1.9 % (0.0-0.4); Lymphocytes Absolute Auto 1.9 X10*3/uL (1.2-4.9); Mean Corpuscular HGB Conc 31.6 g/dl (31.0-35.0); Mean Corpuscular Hemoglobin 26.6 pg (27.0-33.0); Mean Corpuscular Volume 84.1 fL (80.0-98.0); Mean Platelet Volume 10.7 fL (9.4-12.3); Monocytes Absolute Auto 0.9 X10*3/uL (0.1-1.2); Monocytes Percent Auto 8.1 % (2-11); Neutrophils Absolute Auto 7.7 x10*3/uL (2.0-8.3); Neutrophils Percent Auto 71.2 % (45-73); Platelet Count 248 X10*3/uL (160-400); Red Blood Count 5.53 X10*6/uL (4.20-5.50); White Blood Count 10.8 X10*3/uL (4.8-10.8)
[2024-08-04 11:44] LABS: Alanine Aminotransferase 17 U/L (0-31); Albumin Level 4.2 g/dL (3.5-5.0); Alkaline Phosphatase 80 U/L (39-117); Anion Gap 12 (12-20); Aspartate Amino Transferase 13 U/L (5-31); Bilirubin Total 0.3 mg/dL (0.0-1.0); Blood Urea Nitrogen 15 mg/dL (9-16); Calcium 9.6 mg/dL (8.4-10.2); Carbon Dioxide 27 mmol/L (22-29); Chloride 108 mmol/L (96-108); Estimated Glomerular Filt Rate > 60; Glucose Random 133 mg/dL (60-115); Potassium 3.8 mmol/L (3.3-5.1); Sodium 143 mmol/L (135-145); Total Protein 6.9 g/dL (6.5-8.0)
[2024-08-05 20:04] LABS: JO 1 Antibody <1.0 NEG AI (<1.0 NEG)
[2024-08-05 21:39] LABS: IgA 135 mg/dL (70-320); IgG 409 mg/dL (600-1540); IgM 45 mg/dL (50-300)
[2024-08-06 11:19] LABS: Kappa Light Chain, Free Serum 9.8 mg/L (3.3-19.4)
[2024-08-06 13:04] LABS: Immunoglobulin G Subclass 1 202 mg/dL (382-929); Immunoglobulin G Subclass 2 119 mg/dL (241-700); Immunoglobulin G Subclass 3 11 mg/dL (22-178); Immunoglobulin G Subclass 4 17.7 mg/dL (4-86); Immunoglobulin G Total 373 mg/dL (600-1540)
[2024-08-06 21:19] LABS: IgA 138 mg/dL (70-320); IgG 420 mg/dL (600-1540); IgM 46 mg/dL (50-300)
== END 2024-08-04 09:25 | disposition home or self-care (01) ==
LOC: HO.LAB 09:24
PROVIDERS: Internal Medicine Medical Oncology; PCP Internal Medicine; Visit Provider Hospitalist
DX: D80.1 Nonfamilial hypogammaglobulinemia (principal); J84.10 Pulmonary fibrosis, unspecified; M32.9 Systemic lupus erythematosus, unspecified
CPT/HCPCS: 36415; 80053; 82085; 82784; 83521; 84182; 85025; 86235; 86334

== ENCOUNTER 2024-09-10 12:56 | Emergency (ER) | payer MEDICARE, BC, SELFPAY ==
--- NOTE | ~2024-09-10 | CT_ITS ---
EXAMINATION: CT ABDOMEN AND PELVIS WITHOUT CONTRAST CLINICAL INFORMATION: Right flank pain COMPARISON: CT 09/12/2022 TECHNIQUE: Multidetector volumetric imaging was performed from the superior aspect of the liver through the pubic symphysis. Sagittal and coronal reformatted images were obtained on the technologist's workstation. This CT examination was performed using dose optimization techniques as appropriate, variously including the following: *Automated exposure control *Adjustment of mA and/or kV according to patient size (this includes techniques or standardized protocols for targeted exams where dose is matched to indication/reason for exam; i.e. extremities or head) *Use of iterative reconstruction technique DLP: 1019 mGy-cm FINDINGS: LUNG BASES: The visualized lung bases are unremarkable. LIVER, GALLBLADDER, AND BILIARY TREE: Probable hepatic steatosis. The gallbladder is surgically absent. PANCREAS: Unremarkable. SPLEEN: Unremarkable. ADRENAL GLANDS: Unremarkable. KIDNEYS AND URETERS: There are peripelvic renal cysts and extrarenal pelves, unchanged. No hydronephrosis. Bilateral renal calculi, the largest is in the lower pole of the left kidney measuring 3 mm. BLADDER: Unremarkable. GASTROINTESTINAL TRACT: Descending and prominent sigmoid diverticulosis. No focal inflammatory process or obstruction. The appendix is not identified and may have been removed. ABDOMINAL WALL: No significant hernia is appreciated. Small fat-containing periumbilical hernia. LYMPH NODES: Normal. VASCULAR: Atherosclerotic calcifications of the abdominal aorta. PELVIC VISCERA: The uterus is absent. OSSEOUS STRUCTURES: No acute osseous abnormality. CT/CT abdomen pelvis wo IV con IMPRESSION: 1. No focal inflammatory process or obstruction. 2. Bilateral nephrolithiasis. No hydronephrosis. 3. Descending and sigmoid diverticulosis. Fleischner guidelines were followed. Electronically signed by: Palomo Perez MD 09/10/2024 10:51 PM [facility]
--- NOTE | ~2024-09-10 | US_ITS ---
EXAMINATION: BILATERAL TRIPLEX SCANNING OF THE LOWER EXTREMITIES CLINICAL INFORMATION: Lower extremity swelling. COMPARISON: None. TECHNIQUE: Color-flow triplex imaging with spectral analysis and compression Doppler were performed on the lower extremities. FINDINGS: Respiratory variation, normal compression and augmented flow are noted throughout the lower extremities. The visualized common femoral vein, superficial femoral vein, profunda femoral vein, popliteal vein and mid calf peroneal and posterior tibial venous segments show no evidence of deep venous thrombosis. There is no Granados's cyst. US/US venous duplex LE BI IMPRESSION: Normal triplex scan without evidence of deep venous thrombosis involving the lower extremities. Electronically signed by: Palomo Perez MD 09/10/2024 10:51 PM [facility]
--- NOTE | ~2024-09-10 | XR_ITS ---
EXAMINATION: XR CHEST CLINICAL INFORMATION: Chest pain COMPARISON: CT chest 02/28/2024, chest radiograph 11/25/2023 TECHNIQUE: 2 views of the chest were obtained. FINDINGS: Again seen is a mildly elevated right hemidiaphragm. Heart size upper limits of normal. No evidence of CHF. Some minimal bibasilar atelectasis is seen. No consolidations or effusions or lung masses. Surgical clips are seen in the gallbladder fossa along with ACDF hardware. XR/XR chest 2V IMPRESSION: No acute intrathoracic disease. Electronically signed by: Cosme Bartholomew MD 09/10/2024 02:39 PM EST
--- OUTSIDE RECORDS SUMMARY | 2024-09-10 12:58 | XMS_ITS ---
Author Organization [facility] Address [address] [place] [address] Care Team Providers Care Tamale Maker Name Role Phone JONESHEATHER CRUZDHEERAJ Unavailable [phone] REASON FOR VISIT side effect diarrhea MEDICATIONS Medication SIG (Take, Route, Fr equency, Duration) Notes Start Date End Date Status metFORMIN HCl ER 500 MG 1 tablet with ev ening meal Orally Once a day for 90 days 08/04/2024 Active Encounters Encounter Location Date Provider Diagnosis [address] [facility] [address] [place] [address] 08/03/2024 SHARAN JONES PLAN OF TREATMENT Medication Medication Name Sig Start Date Stop Date Notes metFORMIN HCl ER 500 MG 1 tablet with ev ening meal Orally Once a day for 90 days 08/04/2024 Next Appt Details Provider Name:RED BUTTS, 10/06/2024 11:30:00 AM, [address] [facility], [address], [place], [address], Progress Notes * JB ARGUELLO ADOB: 3 (69 yo F)Acc No.[id number]:08/03/2024 Patient:??JB ARGUELLO :1955?Age:69 Y?Sex:Fe male Address:[address] [place] [address] * Refills?? Start metFORMIN HCl ER Tablet Extended Release 24 Hour, 500 MG, Orally, 90 Tablet, 1 tablet with evening meal, Once a day, 90 days, Refills=1 * true * Date:??
--- OUTSIDE RECORDS SUMMARY | 2024-09-10 12:58 | XMS_ITS ---
Author Organization [facility] Address [address] [place] [address] Care Team Providers Care Air Transport Professionals Name Role Phone KAREN SHARAN Unavailable [phone] REASON FOR VISIT O2 Script Encounters Encounter Location Date Provider Diagnosis [facility] [address] [place] [address] 07/28/2024 SHARAN JONES PLAN OF TREATMENT Next Appt Details Provider Name:RED BUTTS, 10/06/2024 11:30:00 AM, [address] [place] [address], [facility] [address], [place], [address], Progress Notes * JB ARGUELLO ADOB: 3 (68 yo F)Acc No.[id number]:07/28/2024 Patient:??JB ARGUELLO :1955?Age:68 Y?Sex:Fe male Address:[address] [place] [address] * true * Date:??
--- OUTSIDE RECORDS SUMMARY | 2024-09-10 12:59 | XMS_ITS | Patient Health Record ---
Author Organization [facility] Address [address] [facility] [place] [address] Care Team Providers Care Regional Sales Leader Name Role Phone Yashira THOMAS, Shawna Primary Care Provider Steph Dotson Unavailable [phone] Allergies Allergen (clinical drug ingredient) Drug/Non Drug Allergy documented on EMR Reaction Allergy Type Onset Date Status Adhesive Unknown Allergy Active Shellfish (FN) Shellfish-derived Products Unknown Drug Allergy Active Substance with 1-vaqzset-2-methylgluta ryl-coenzyme A reductase inhibitor mechanism of action (substance) Statins Unknown Drug Allergy Active Reason For Referral No Information Medications Medication SIG (Take, Route, Frequency, Duration) Notes Start Date End Date Status ZyrTEC Allergy 10 MG 1 tablet Orally Onc e a day for 30 day(s) Active Fioricet Active Fluticasone Furoate 50 MCG/ACT 2 puffs Inhalation Once a day Active Advair HFA 230-21 MCG/ACT 2 puffs Inhala tion Twice a day Active amLODIPine Besylate 10 MG 1 tablet Orall y Once a day for 30 day(s) Active Dicyclomine HCl 20 MG 1 tablet Orally Th ree times a day for 30 day(s) Active Extra Depth Orthopedic Shoes (1 Pair) with Customized Heat Molded Multidensity Innersoles (3 Pair) as directed Dx: NIDDM/Polyneuropathy (E11.42), Hammertoe Foot Deformity (M20.41,M20.42), Preulcerative Skin Lesion(s) (L85.1 11/29/2020 Active Losartan Potassium 25 MG 1 tablet Orally Once a day Active Synthroid 200 MCG 1 tablet in the morn ing on an empty stomach Orally Once a day for 30 day(s) Active Plaquenil 200 MG as directed Orally Active Victoza Active Pyridium Active methylPREDNISolone 2 MG 2 tablets in the morning with food or milk Orally Once a day for 30 day(s) Active Albuterol Active Ferrous Sulfate 324 MG 1 tablet Orally O nce a day for 30 day(s) Active Montelukast Sodium A ctive Immunizations Vaccine Route Administration Date Status Comme nts Influenza Unknown 07/01/2020 Administered Social History Tobacco Use: Social History Observation Description Date Details (start date - stop date) Former Smoker NA - NA Tobacco Use/Smoking Question Answer Notes Are you a: former smoker Additional Findings: Tobacco Non-User Current no n-smoker Alcohol Screen Question Answer Notes Did you have a drink contain ing alcohol in the past year? Yes How often did you have a dri nk containing alcohol in the past year? Monthly or less (1 point) How many drinks did you have on a typical day when you were drinking in the past year? 1 or 2 drinks (0 point) How often did you have 6 or more drinks on one occasion in the past year? Never (0 point) Points 1 Interpretation Negative Tobacco use other than smoking: Question Answer Notes Are you an other tobacco user? No Problems Problem Type SNOMED Code ICD Code Onset Dates Problem Status W/U Status Risk Notes Problem Acquired hammer toe of right foot (3277360740839887 ) Other hammer toe(s) (acquired), right foot (M20.41) Active confirmed Problem Acquired hammer toe of left foot (0858060245239481 ) Other hammer toe(s) (acquired), left foot (M20.42) Active confirmed Problem Polyneuropathy due to type 2 diabetes mellitus (692501158) Type 2 diabetes mellitus with diabetic polyneuropathy (E11.42) Active confirmed Plan Of Treatment Pending Test Test Name Order Date [id number] NAIL, 6 OR MORE 09/27/2020 [id number] NAIL, 1-5 11/29/2020 [id number] Plate 09/27/2020 [id number] SKIN LESIONS, OVER 4 09/27/19 21 [id number] SKIN LESIONS, OVER 4 11/30/19 21 [id number] DYSTROPHIC NAILS ANY # Insurance Providers Payer Name Payer Address Payer Phone Subscriber Number Group Number Insured Name Patient Relationship to Insured Coverage Start Date Coverage End Date Medicare [employer] [address] [place] [address] [id number] Naheed Luna Self - patient is the insured [facility] [address] [place] [address] [id number] Naheed Luna Self - patient is the insured Medical (General) History Medical History History ICD Code Anemia Angina Arthritis asthma Back,Hip,and Knee pain Broken bones CAD (Cholesterol) type II diabetes Diverticulosis Fibromyalgia Gall bladder problems Glaucoma Headaches/Migraines High blood pressure Lupus Lyme disease Multiple sclerosis Numbness Osteoporosis Raynauds syndrome Reflux ( GERD) Sciatica Sinus conditions Sjogren syndrome Stomach ulcer Stroke thyroid Vascular phlebitis (clots) Measles Mumps Chicken pox Joint implants/screws Transfusions aneurysm Dorsal area r Carotid Coronary Microvascular Disease Surgical History Surgery Date(Month/Year) tonsillectomy and adenoidectomy 1962 D&C 9189-5229 hysterectomy 1978 oopherectomy 1978 appendectomy 1978 cholecystectomy 1979 disc surgeryC-5,C-6,SI,L5 S-1 Vplate ant erior 2002,2006,2008 carpal tunnel surgery 2003,2005 Hospitalization History Reason Date(Month/Year) [facility] hypokalemia, hypo magnesemia, thyroi d toxicosis 09/2020
--- OUTSIDE RECORDS SUMMARY | 2024-09-10 12:59 | XMS_ITS | Patient Health Record ---
Author Organization [facility] Address [address] [place] [address] Care Team Providers Care Desktop Publishing Operator Name Role Phone JONES, SHARAN Unavailable [phone] ALLERGIES Allergen (clinical drug ingredient) Drug/Non Drug Allergy documented on EMR Reaction Allergy Type Onset Date Status Substance with 0-nxlyxee-1-methylglu taryl-coenzyme A reductase inhibitor mechanism of action (substance) statins (uncoded) Unknown Allergy Active denosumab Prolia stomach upset Drug Allergy Act jere REASON FOR REFERRAL Reason Dr. Kyrie Bliss Diagnosis 1 Interstitial lung di sease with progressive fibrotic phenotype in diseases classified elsewhere (J84.170) Referral Organization [email or web address] Referring Provider First Name SHARAN Referring Provider Last Name KAREN Referring Provider Speciality Internal M edicine Referred Provider Kyrie Bliss Referred Provider Specialty Pulmonology General Notes RAF SEVILLA 11/27 10:55:18 AM > faxed referral to Dr. Bliss - p: [phone] f: [phone] f: [phone] - also gave pt phone # to call for apptDI SHANIYA 01/01/2024 03:25:35 PM > pt is current pt - cancelled last appt in april 2023 Referral Priority Routine Reason abnormal EKG and k[address]ie [facility] pain with [facility] Cardio Diagnosis 1 Abnormal EKG (R94.31 ) Diagnosis 2 Chest pain in adult (R07.9) Referral Organization [email or web address] Referring Provider First Name SHARAN Referring Provider Last Name KAREN Referring Provider Speciality Internal M edicine Referred Provider Specialty Cardiology General Notes [address] , [address], [place], [place], P [phone], F [phone] Clinical Notes Cristoferdinah Amy 2023 02:16:15 PM >, StephanietheodoraAmy 03/10/2024 11:26:47 AM >Referral info faxed to [facility] cards with specialty referral form., Maria Guadalupe Robert 04/09/2024 02:35:37 PM > refaxed, Maria Guadalupe Robert 04/24/2024 09:22:19 AM > The patient is an established patient. She was last seen in December. The office informed me that she can call to set up an appointment. I spoke with the patient's and provided him with the phone number. He said he will relay the information to the patient, Stephanietheodora Amy 04/24/2024 01:55:07 PM >Pt called asking for referral to be sent to [facility] Cardiology with Dr. Lozano, Amy Gonzalez 04/28/2024 01:45:09 PM >Called and spoke to Samara, confirmed that Naheed wants a second opinion and does not want to stay in [facility] system. Samara states referral is confirmed, books are not open until September and she will contact her then to schedule. TY. Referral Priority Routine MEDICATIONS Medication SIG (Take, Route, Frequency, Duration) Notes Start Date End Date Status Berberine Complex Ac tive CoQ-10 100 MG as directed Orally Active ZyrTEC Allergy 10 MG 1 tablet Orally Onc e a day Active Ondansetron HCl 4 MG 1 tablet as needed for nausea Orally every 12 hours for 30 days 11/28/2023 Active Multi Vitamin - 1 tablet Orally Once a day Active Ipratropium-Albuterol 0.5-2.5 (3) MG/3ML 3 ml as needed Inhalation every 6 hrs Active Probiotic - as directed Orally Active Vitamin D 25 MCG (1000 UT) 1 tablet Oral ly Once a day Active Magnesium 400 MG as directed Orally Active Vitamin C 1000 MG 1 tablet Orally Once a day Active Zinc 100 MG 1 tablet Orally Once a day Active Miconazole Nitrate 2 % 1 application Externally Twice a day for 30 days 07/08/2024 Active Plaquenil 200 MG 1 tablet Orally daily Not-Taking metFORMIN HCl 500 MG 1 tablet with a stew l Orally twice a day for 90 days 07/08/2024 Active Naltrex 4.5 MG as directed Orally Not-Taking Fioricet 50-300-40 MG 1 capsule as neede d Orally once a day for 90 days Active Hydroxychloroquine Sulfate 200 MG TAKE 1 TABLET TWICE A DAY Oral for 90 Days Active Mycophenolate Mofetil 500 MG TAKE 1 TABLET TWICE A DAY Oral for 90 Days Active Azithromycin 250 MG Oral for 90 Days Active Synthroid 200 MCG TAKE 1 TABLET ONCE DAILY INTHE MORNING ON AN EMPTY STOMACH for 90 Active Ozempic (1 MG/DOSE) 4 MG/3ML inject 1.0mg Subcutaneous once weekly for 90 days 04/08/2024 Active Acyclovir 5 % 1 application Externally Five times a day for 30 days 03/02/2024 Active Miconazole Antifungal 2 % 1 application Externally Twice a day for 30 days 07/08/2024 Active Ozempic (2 MG/DOSE) 8 MG/3ML inject 1mg Subcutaneous once weekly for 30 days 01/16/2023 Not-Taking Advair HFA 230-21 MCG/ACT 2 puffs Inhala tion Twice a day prn Active predniSONE 20 MG 1 tablet Orally Once a day Active Sodium Chloride 3 % 4 mL Inhalation Twic e a day Active Mucinex 600 MG 1 tablet as needed Orally every 12 hrs Active Nystatin 626196 UNIT/GM 1 application Externally Twice a day for 30 days 08/21/2023 Active amLODIPine Besylate 10 MG TAKE 1 TABLET ONCE DAILY for 90 Not-Taking CellCept 500 MG 1 tablet Orally Twic e a day Active Diflucan 150 MG 1 tablet Orally once weekly for 84 days 03/02/2024 Active Levalbuterol Tartrate 45 MCG/ACT 1-2 puffs as needed Inhalation every 4 hrs for 30 days Active Levothyroxine Sodium 175 MCG 1 tablet in the morning on an empty stomach Orally every other day for 90 days 09/03/2024 Active Losartan Potassium 25 MG 1 tablet Orally Once a day for 90 days Active Montelukast Sodium 10 MG TAKE 1 TABLET O NCE DAILY for 90 Active Prolia 60 MG/ML as directed Subcutaneous every 6 months for 90 days 10/24/2022 Active Fluticasone Furoate 50 MCG/ACT 1 puff Inhalation Once a day Active traMADol HCl 50 MG 1 tablet as needed Orally Once a day for 60 days 07/08/2024 Active Calcium 500 MG 1 tablet with meals Orally Twice a day Active metFORMIN HCl ER 500 MG 1 tablet with ev ening meal Orally Once a day for 90 days 08/04/2024 Active IMMUNIZATIONS Vaccine Route Administration Date Status Comme nts Influenza, high dose seasonal IM Intramuscular 06/18/2023 Administered Pneumococcal polysaccharide PPV23 IM Intramuscular 06/18/2023 Administered SOCIAL HISTORY Tobacco Use: Social History Observation Description Date Details (start date - stop date) Former Smoker NA - NA Sex Assigned At : Social History Observation Description Sex Assigned At Unknown Tobacco Use/Smoking Question Answer Notes Are you a former smoker PROBLEMS Problem Type ICD Code Onset Dates Problem Status W/U Status Risk SNOMED Code Notes Problem Other obesity (E66.8) Active confirmed Obesity (243322615) Problem Mixed hyperlipidemia (E78.2) Active confirmed 953256234 Problem Hyperlipidemia, unspecified (E78.5) Active confirmed Hyperlipidemia (90563132) Problem Other chronic pain (G89.29) Active confirmed 79661633 Problem Chronic pain syndrome (G89.4) Active confirmed Chronic nikhil n syndrome (391427228) Problem Pulmonary fibrosis, unspecified (J84.10) Active confirmed Pulmonary fibrosis (67772678) Problem Systemic lupus erythematosus, unspecified (M32.9) Active confirmed Systemic lupus erythematosus (66145226) Problem Age-related osteoporosis without current pathological fracture (M81.0) Active confirmed 05114337 Problem Body mass index (BMI) 38.0-38.9, adult (Z68.38) Active confirmed Body mass ind ex 35.00 to 39.99 (994866971901917) Problem Body mass index (BMI) 39.0-39.9, adult (Z68.39) Active confirmed Body mass ind ex 35.00 to 39.99 (544201946040536) Problem Chronic idiopathic constipation (K59.04) Active confirmed 73755842 Problem Morbid obesity (E66.01) Active confirmed 460212515 Problem Type 2 diabetes mellitus with complication, unspecified whether campus aide insulin use (E11.8) Active confirmed Disorder due to type 2 diabetes mellitus (541151771) Problem Hypothyroidism, unspecified type (E03.9) Active confirmed 37298019 Problem Vitamin D deficiency (E55.9) Active confirmed Vitamin D deficiency (70791670) Problem Hypertension, unspecified type (I10) Active confirmed Essential hypertension (74992232) Problem Type 2 diabetes mellitus without complication, without long-term current use of insulin (E11.9) Active confirmed 719270071 Problem Obesity (BMI 30-39.9) (E66.9) Active confirmed Obesity (532581216) Problem Interstitial lung disease with progressive fibrotic phenotype in diseases classified elsewhere (J84.170) Active confirmed 625664782 Problem BMI 35.0-35.9,adult (Z68.35) Active confirmed Obese class II (233337923464838) Problem Pulmonary fibrosis (J84.10) Active confirmed 79199994 Problem Body mass index [BMI] 40.0-44.9, adult (Z68.41) Active confirmed 603702160 Problem Interstitial cystitis (N30.10) Active confirmed 522783130 Problem Other osteoporosis with current pathological fracture with routine healing, subsequent encounter (M80.80XD) Active confirmed 18128757 VITAL SIGNS Heart Rate 76 /min 07/08/2024 Oximetry 96 % 07/08/2024 Blood pressure diastolic 82 mm Hg 07/08/2024 Height 66 in 07/08/2024 Blood pressure systolic 136 mm Hg 07/08/2024 Weight 239 lbs 07/08/2024 BMI 38.57 kg/m2 07/08/2024 Encounters Encounter Location Date Provider Diagnosis [facility] [address] [place] [address] 10/17/2023 SHARAN JONES [facility] [address] [place] [address] 11/28/2023 HEATHERDHEERAJ JONES Other obesity E66.8 ; Chronic pain syndrome G89.4 ; Other chronic pain G89.29 ; Hyperlipidemia, unspecified E78.5 ; Type 2 diabetes mellitus with complication, unspecified whether nursing home insulin use E11.8 ; Age-related osteoporosis without current pathological fracture M81.0 ; Type 2 diabetes mellitus without complication, without long-term current use of insulin E11.9 ; Mixed hyperlipidemia E78.2 ; Hypothyroidism, unspecified type E03.9 and Hypertension, unspecified type I10 [facility] [address] [place] [address] 03/02/2024 HEATHERDHEERAJ JONES Age-related osteopor osis without current pathological fracture M81.0 ; Annual physical exam Z00.00 ; Type 2 diabetes mellitus without complication, without long-term current use of insulin E11.9 ; Hypothyroidism, unspecified type E03.9 ; Hypertension, unspecified type I10 ; Lupus M32.9 ; Pulmonary fibrosis, unspecified J84.10 and Fungal infection B49 [facility] [address] [place] [address] 07/08/2024 TALDHEERAJ JONES Chronic pain syndrom e G89.4 ; Type 2 diabetes mellitus with complication, unspecified whether campus aide insulin use E11.8 ; Hyperlipidemia, unspecified E78.5 ; Age-related osteoporosis without current pathological fracture M81.0 and Lupus M32.9 [facility] [address] [place] [address] 04/08/[address] [place] [address] 04/24/[address] [place] [address] 07/08/[address] [place] [address] 07/08/2024 TALAL JONES [facility] [address] [place] [address] 07/10/2024 TALAL KAREN Chronic pain syndrom e G89.4 [facility] [address] [place] [address] 07/28/2024 TALAL JONES [address] [place] [address] 08/03/2024 TALAL JONES [facility] [address] [place] [address] 09/01/2024 SHARAN JONES ASSESSMENTS Encounter Date Diagnosis Assessment Notes Treatment Notes Treatment Clinical Notes Section Notes 11/28/2023 Other obesity (ICD-10 - E66.8) Naheed is a 68 year old female with past medical history pertinent for SLE, idiopathic pulmonary fibrosis, chronic pain, HLD, osteoporosis, Type II DM, and HTN who presents for follow up on ED visit. She is doing better, and is taking prednisone. Work of breathing is at baseline. She shares she is experiencing an SLE flare at the moment. She is requesting refills on her inhaler and Zofran. She is requesting a referral to pulmonoglist Dr. Kyrie Bliss as she is having difficulty traveling to [place].She will follow up in February. 03/02/2024 Age-related osteoporosis without current pathological fracture (ICD-10 - M81.0) 1. T2DM : Decrease ozempic to 1 mg weekly 2. SLE : Continue current regimen of; CellCept 500 MG Tablet 1 tablet Orally Twice a day. Plaquenil 200 MG Tablet 1 tablet Orally daily. 3. Osteoporosis : Continue current regimen of; Vitamin D 25 MCG (1000 UT) Tablet 1 tablet Orally Once a day. Calcium 500 MG Tablet 1 tablet with meals Orally Twice a day. 4. Hypothyroidism : Continue current regimen of ; Synthroid 200 MCG Tablet 1 tablet in the morning on an empty stomach Orally Once a day. 5. Hypertenstion : Continue current regimen of ; amLODIPine Besylate 10 MG Tablet 1 tablet Orally Once a day. Losartan Potassium 25 MG Tablet 1 tablet Orally Once a day. 6. Idiopathic pulmonary fibrosis : Continue current regimen of ; Ipratropium-Albut cindy 0.5-2.5 (3) MG/3ML Solution 3 ml as needed Inhalation every 6 hrs. Advair HFA 230-21 MCG/ACT Aerosol 2 puffs Inhalation Twice a day , Notes to Pharmacist: prn. Fluticasone Furoate 50 MCG/ACT Aerosol Powder Breath Activated 1 puff Inhalation Once a day. Levalbuterol Tartrate 45 MCG/ACT Aerosol 1-2 puffs as needed Inhalation every 4 hrs. 7. Fungal Infection : Continue current regimen of ; Diflucan 150mg PO once every 2 weeks. Nystatin 328058 UNIT/GM Ointment 1 application Externally Twice a day. Discussed the importance of regular follow up with her specialist as well as remaining UTD on vaccinations. Discussed the importance of continuing lifestyle maintanence with healhty diet and regular exercise. Follow up in June for maintancence. 03/02/2024 Annual physical exam (ICD-10 - Z00.00) 1. T2DM : Decrease ozempic to 1 mg weekly 2. SLE : Continue current regimen of; CellCept 500 MG Tablet 1 tablet Orally Twice a day. Plaquenil 200 MG Tablet 1 tablet Orally daily. 3. Osteoporosis : Continue current regimen of; Vitamin D 25 MCG (1000 UT) Tablet 1 tablet Orally Once a day. Calcium 500 MG Tablet 1 tablet with meals Orally Twice a day. 4. Hypothyroidism : Continue current regimen of ; Synthroid 200 MCG Tablet 1 tablet in the morning on an empty stomach Orally Once a day. 5. Hypertenstion : Continue current regimen of ; amLODIPine Besylate 10 MG Tablet 1 tablet Orally Once a day. Losartan Potassium 25 MG Tablet 1 tablet Orally Once a day. 6. Idiopathic pulmonary fibrosis : Continue current regimen of ; Ipratropium-Albut cindy 0.5-2.5 (3) MG/3ML Solution 3 ml as needed Inhalation every 6 hrs. Advair HFA 230-21 MCG/ACT Aerosol 2 puffs Inhalation Twice a day , Notes to Pharmacist: prn. Fluticasone Furoate 50 MCG/ACT Aerosol Powder Breath Activated 1 puff Inhalation Once a day. Levalbuterol Tartrate 45 MCG/ACT Aerosol 1-2 puffs as needed Inhalation every 4 hrs. 7. Fungal Infection : Continue current regimen of ; Diflucan 150mg PO once every 2 weeks. Nystatin 553718 UNIT/GM Ointment 1 application Externally Twice a day. Discussed the importance of regular follow up with her specialist as well as remaining UTD on vaccinations. Discussed the importance of continuing lifestyle maintanence with healhty diet and regular exercise. Follow up in June for maintancence. 07/08/2024 Chronic pain syndrome (ICD-10 - G89.4) Patient with multiple medical problems as outlined above. For chronic migraine I will continue and refill Fioricet. Patient does not want to take a GLP-1 and will come off Ozempic and go back on metformin we will need to keep a close eye on hemoglobin A1c. Nystatin and Diflucan have not worked well for her and she would like to do miconazole and we will send a prescription to [facility]. She wants a powder and a cream and we will prescribe both of them. 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 Please follow-up on oncology notes consider repeat EKGs regularly to monitor QT intervals blood work and follow-up advised 07/08/2024 Type 2 diabetes mellitus with complication, unspecified whether campus aide insulin use (ICD-10 - E11.8) Patient with multiple medical problems as outlined above. For chronic migraine I will continue and refill Fioricet. Patient does not want to take a GLP-1 and will come off Ozempic and go back on metformin we will need to keep a close eye on hemoglobin A1c. Nystatin and Diflucan have not worked well for her and she would like to do miconazole and we will send a prescription to [facility]. She wants a powder and a cream and we will prescribe both of them. 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 Please follow-up on oncology notes consider repeat EKGs regularly to monitor QT intervals blood work and follow-up advised 07/10/2024 Chronic pain syndrome (ICD-10 - G89.4) 07/08/2024 Hyperlipidemia, unspecified (ICD-10 - E78.5) Patient with multiple medical problems as outlined above. For chronic migraine I will continue and refill Fioricet. Patient does not want to take a GLP-1 and will come off Ozempic and go back on metformin we will need to keep a close eye on hemoglobin A1c. Nystatin and Diflucan have not worked well for her and she would like to do miconazole and we will send a prescription to [facility]. She wants a powder and a cream and we will prescribe both of them. 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 Please follow-up on oncology notes consider repeat EKGs regularly to monitor QT intervals blood work and follow-up advised 03/02/2024 Type 2 diabetes mellitus without complication, without long-term current use of insulin (ICD-10 - E11.9) 1. T2DM : Decrease ozempic to 1 mg weekly 2. SLE : Continue current regimen of; CellCept 500 MG Tablet 1 tablet Orally Twice a day. Plaquenil 200 MG Tablet 1 tablet Orally daily. 3. Osteoporosis : Continue current regimen of; Vitamin D 25 MCG (1000 UT) Tablet 1 tablet Orally Once a day. Calcium 500 MG Tablet 1 tablet with meals Orally Twice a day. 4. Hypothyroidism : Continue current regimen of ; Synthroid 200 MCG Tablet 1 tablet in the morning on an empty stomach Orally Once a day. 5. Hypertenstion : Continue current regimen of ; amLODIPine Besylate 10 MG Tablet 1 tablet Orally Once a day. Losartan Potassium 25 MG Tablet 1 tablet Orally Once a day. 6. Idiopathic pulmonary fibrosis : Continue current regimen of ; Ipratropium-Albut cindy 0.5-2.5 (3) MG/3ML Solution 3 ml as needed Inhalation every 6 hrs. Advair HFA 230-21 MCG/ACT Aerosol 2 puffs Inhalation Twice a day , Notes to Pharmacist: prn. Fluticasone Furoate 50 MCG/ACT Aerosol Powder Breath Activated 1 puff Inhalation Once a day. Levalbuterol Tartrate 45 MCG/ACT Aerosol 1-2 puffs as needed Inhalation every 4 hrs. 7. Fungal Infection : Continue current regimen of ; Diflucan 150mg PO once every 2 weeks. Nystatin 212627 UNIT/GM Ointment 1 application Externally Twice a day. Discussed the importance of regular follow up with her specialist as well as remaining UTD on vaccinations. Discussed the importance of continuing lifestyle maintanence with healhty diet and regular exercise. Follow up in June for maintancence. 11/28/2023 Chronic pain syndrome (ICD-10 - G89.4) Naheed is a 68 year old female with past medical history pertinent for SLE, idiopathic pulmonary fibrosis, chronic pain, HLD, osteoporosis, Type II DM, and HTN who presents for follow up on ED visit. She is doing better, and is taking prednisone. Work of breathing is at baseline. She shares she is experiencing an SLE flare at the moment. She is requesting refills on her inhaler and Zofran. She is requesting a referral to pulmonoglist Dr. Kyrie Bliss as she is having difficulty traveling to [place].She will follow up in February. 11/28/2023 Other chronic pain (ICD-10 - G89.29) Naheed is a 68 year old female with past medical history pertinent for SLE, idiopathic pulmonary fibrosis, chronic pain, HLD, osteoporosis, Type II DM, and HTN who presents for follow up on ED visit. She is doing better, and is taking prednisone. Work of breathing is at baseline. She shares she is experiencing an SLE flare at the moment. She is requesting refills on her inhaler and Zofran. She is requesting a referral to pulmonoglist Dr. Kyrie Bliss as she is having difficulty traveling to [place].She will follow up in February. 03/02/2024 Hypothyroidism, unspecified type (ICD-10 - E03.9) 1. T2DM : Decrease ozempic to 1 mg weekly 2. SLE : Continue current regimen of; CellCept 500 MG Tablet 1 tablet Orally Twice a day. Plaquenil 200 MG Tablet 1 tablet Orally daily. 3. Osteoporosis : Continue current regimen of; Vitamin D 25 MCG (1000 UT) Tablet 1 tablet Orally Once a day. Calcium 500 MG Tablet 1 tablet with meals Orally Twice a day. 4. Hypothyroidism : Continue current regimen of ; Synthroid 200 MCG Tablet 1 tablet in the morning on an empty stomach Orally Once a day. 5. Hypertenstion : Continue current regimen of ; amLODIPine Besylate 10 MG Tablet 1 tablet Orally Once a day. Losartan Potassium 25 MG Tablet 1 tablet Orally Once a day. 6. Idiopathic pulmonary fibrosis : Continue current regimen of ; Ipratropium-Albut cindy 0.5-2.5 (3) MG/3ML Solution 3 ml as needed Inhalation every 6 hrs. Advair HFA 230-21 MCG/ACT Aerosol 2 puffs Inhalation Twice a day , Notes to Pharmacist: prn. Fluticasone Furoate 50 MCG/ACT Aerosol Powder Breath Activated 1 puff Inhalation Once a day. Levalbuterol Tartrate 45 MCG/ACT Aerosol 1-2 puffs as needed Inhalation every 4 hrs. 7. Fungal Infection : Continue current regimen of ; Diflucan 150mg PO once every 2 weeks. Nystatin 772805 UNIT/GM Ointment 1 application Externally Twice a day. Discussed the importance of regular follow up with her specialist as well as remaining UTD on vaccinations. Discussed the importance of continuing lifestyle maintanence with healhty diet and regular exercise. Follow up in June for maintancence. 07/08/2024 Age-related osteoporosis without current pathological fracture (ICD-10 - M81.0) Patient with multiple medical problems as outlined above. For chronic migraine I will continue and refill Fioricet. Patient does not want to take a GLP-1 and will come off Ozempic and go back on metformin we will need to keep a close eye on hemoglobin A1c. Nystatin and Diflucan have not worked well for her and she would like to do miconazole and we will send a prescription to [facility]. She wants a powder and a cream and we will prescribe both of them. 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 Please follow-up on oncology notes consider repeat EKGs regularly to monitor QT intervals blood work and follow-up advised 07/08/2024 Lupus (ICD-10 - M32.9) Patient with multiple medical problems as outlined above. For chronic migraine I will continue and refill Fioricet. Patient does not want to take a GLP-1 and will come off Ozempic and go back on metformin we will need to keep a close eye on hemoglobin A1c. Nystatin and Diflucan have not worked well for her and she would like to do miconazole and we will send a prescription to [facility]. She wants a powder and a cream and we will prescribe both of them. 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 Please follow-up on oncology notes consider repeat EKGs regularly to monitor QT intervals blood work and follow-up advised 03/02/2024 Hypertension, unspecified type (ICD-10 - I10) 1. T2DM : Decrease ozempic to 1 mg weekly 2. SLE : Continue current regimen of; CellCept 500 MG Tablet 1 tablet Orally Twice a day. Plaquenil 200 MG Tablet 1 tablet Orally daily. 3. Osteoporosis : Continue current regimen of; Vitamin D 25 MCG (1000 UT) Tablet 1 tablet Orally Once a day. Calcium 500 MG Tablet 1 tablet with meals Orally Twice a day. 4. Hypothyroidism : Continue current regimen of ; Synthroid 200 MCG Tablet 1 tablet in the morning on an empty stomach Orally Once a day. 5. Hypertenstion : Continue current regimen of ; amLODIPine Besylate 10 MG Tablet 1 tablet Orally Once a day. Losartan Potassium 25 MG Tablet 1 tablet Orally Once a day. 6. Idiopathic pulmonary fibrosis : Continue current regimen of ; Ipratropium-Albut cindy 0.5-2.5 (3) MG/3ML Solution 3 ml as needed Inhalation every 6 hrs. Advair HFA 230-21 MCG/ACT Aerosol 2 puffs Inhalation Twice a day , Notes to Pharmacist: prn. Fluticasone Furoate 50 MCG/ACT Aerosol Powder Breath Activated 1 puff Inhalation Once a day. Levalbuterol Tartrate 45 MCG/ACT Aerosol 1-2 puffs as needed Inhalation every 4 hrs. 7. Fungal Infection : Continue current regimen of ; Diflucan 150mg PO once every 2 weeks. Nystatin 102999 UNIT/GM Ointment 1 application Externally Twice a day. Discussed the importance of regular follow up with her specialist as well as remaining UTD on vaccinations. Discussed the importance of continuing lifestyle maintanence with healhty diet and regular exercise. Follow up in June for maintancence. 11/28/2023 Hyperlipidemia, unspecified (ICD-10 - E78.5) Naheed is a 68 year old female with past medical history pertinent for SLE, idiopathic pulmonary fibrosis, chronic pain, HLD, osteoporosis, Type II DM, and HTN who presents for follow up on ED visit. She is doing better, and is taking prednisone. Work of breathing is at baseline. She shares she is experiencing an SLE flare at the moment. She is requesting refills on her inhaler and Zofran. She is requesting a referral to pulmonoglist Dr. Kyrie Bliss as she is having difficulty traveling to [place].She will follow up in February. 11/28/2023 Type 2 diabetes mellitus with complication, unspecified whether campus aide insulin use (ICD-10 - E11.8) Naheed is a 68 year old female with past medical history pertinent for SLE, idiopathic pulmonary fibrosis, chronic pain, HLD, osteoporosis, Type II DM, and HTN who presents for follow up on ED visit. She is doing better, and is taking prednisone. Work of breathing is at baseline. She shares she is experiencing an SLE flare at the moment. She is requesting refills on her inhaler and Zofran. She is requesting a referral to pulmonoglist Dr. Kyrie Bliss as she is having difficulty traveling to [place].She will follow up in February. 03/02/2024 Lupus (ICD-10 - M32.9) 1. T2DM : Decrease ozempic to 1 mg weekly 2. SLE : Continue current regimen of; CellCept 500 MG Tablet 1 tablet Orally Twice a day. Plaquenil 200 MG Tablet 1 tablet Orally daily. 3. Osteoporosis : Continue current regimen of; Vitamin D 25 MCG (1000 UT) Tablet 1 tablet Orally Once a day. Calcium 500 MG Tablet 1 tablet with meals Orally Twice a day. 4. Hypothyroidism : Continue current regimen of ; Synthroid 200 MCG Tablet 1 tablet in the morning on an empty stomach Orally Once a day. 5. Hypertenstion : Continue current regimen of ; amLODIPine Besylate 10 MG Tablet 1 tablet Orally Once a day. Losartan Potassium 25 MG Tablet 1 tablet Orally Once a day. 6. Idiopathic pulmonary fibrosis : Continue current regimen of ; Ipratropium-Albut cindy 0.5-2.5 (3) MG/3ML Solution 3 ml as needed Inhalation every 6 hrs. Advair HFA 230-21 MCG/ACT Aerosol 2 puffs Inhalation Twice a day , Notes to Pharmacist: prn. Fluticasone Furoate 50 MCG/ACT Aerosol Powder Breath Activated 1 puff Inhalation Once a day. Levalbuterol Tartrate 45 MCG/ACT Aerosol 1-2 puffs as needed Inhalation every 4 hrs. 7. Fungal Infection : Continue current regimen of ; Diflucan 150mg PO once every 2 weeks. Nystatin 268265 UNIT/GM Ointment 1 application Externally Twice a day. Discussed the importance of regular follow up with her specialist as well as remaining UTD on vaccinations. Discussed the importance of continuing lifestyle maintanence with healhty diet and regular exercise. Follow up in June for maintancence. 03/02/2024 Pulmonary fibrosis, unspecified (ICD-10 - J84.10) 1. T2DM : Decrease ozempic to 1 mg weekly 2. SLE : Continue current regimen of; CellCept 500 MG Tablet 1 tablet Orally Twice a day. Plaquenil 200 MG Tablet 1 tablet Orally daily. 3. Osteoporosis : Continue current regimen of; Vitamin D 25 MCG (1000 UT) Tablet 1 tablet Orally Once a day. Calcium 500 MG Tablet 1 tablet with meals Orally Twice a day. 4. Hypothyroidism : Continue current regimen of ; Synthroid 200 MCG Tablet 1 tablet in the morning on an empty stomach Orally Once a day. 5. Hypertenstion : Continue current regimen of ; amLODIPine Besylate 10 MG Tablet 1 tablet Orally Once a day. Losartan Potassium 25 MG Tablet 1 tablet Orally Once a day. 6. Idiopathic pulmonary fibrosis : Continue current regimen of ; Ipratropium-Albut cnidy 0.5-2.5 (3) MG/3ML Solution 3 ml as needed Inhalation every 6 hrs. Advair HFA 230-21 MCG/ACT Aerosol 2 puffs Inhalation Twice a day , Notes to Pharmacist: prn. Fluticasone Furoate 50 MCG/ACT Aerosol Powder Breath Activated 1 puff Inhalation Once a day. Levalbuterol Tartrate 45 MCG/ACT Aerosol 1-2 puffs as needed Inhalation every 4 hrs. 7. Fungal Infection : Continue current regimen of ; Diflucan 150mg PO once every 2 weeks. Nystatin [id number] UNIT/GM Ointment 1 application Externally Twice a day. Discussed the importance of regular follow up with her specialist as well as remaining UTD on vaccinations. Discussed the importance of continuing lifestyle maintanence with healhty diet and regular exercise. Follow up in June for maintancence. 11/28/2023 Age-related osteoporosis without current pathological fracture (ICD-10 - M81.0) Naheed is a 68 year old female with past medical history pertinent for SLE, idiopathic pulmonary fibrosis, chronic pain, HLD, osteoporosis, Type II DM, and HTN who presents for follow up on ED visit. She is doing better, and is taking prednisone. Work of breathing is at baseline. She shares she is experiencing an SLE flare at the moment. She is requesting refills on her inhaler and Zofran. She is requesting a referral to pulmonoglist Dr. Kyrie Bliss as she is having difficulty traveling to [place].She will follow up in February. 11/28/2023 Type 2 diabetes mellitus without complication, without long-term current use of insulin (ICD-10 - E11.9) Naheed is a 68 year old female with past medical history pertinent for SLE, idiopathic pulmonary fibrosis, chronic pain, HLD, osteoporosis, Type II DM, and HTN who presents for follow up on ED visit. She is doing better, and is taking prednisone. Work of breathing is at baseline. She shares she is experiencing an SLE flare at the moment. She is requesting refills on her inhaler and Zofran. She is requesting a referral to pulmonoglist Dr. Kyrie Bliss as she is having difficulty traveling to [place].She will follow up in February. 03/02/2024 Fungal infection (ICD-10 - B49) 1. T2DM : Decrease ozempic to 1 mg weekly 2. SLE : Continue current regimen of; CellCept 500 MG Tablet 1 tablet Orally Twice a day. Plaquenil 200 MG Tablet 1 tablet Orally daily. 3. Osteoporosis : Continue current regimen of; Vitamin D 25 MCG (1000 UT) Tablet 1 tablet Orally Once a day. Calcium 500 MG Tablet 1 tablet with meals Orally Twice a day. 4. Hypothyroidism : Continue current regimen of ; Synthroid 200 MCG Tablet 1 tablet in the morning on an empty stomach Orally Once a day. 5. Hypertenstion : Continue current regimen of ; amLODIPine Besylate 10 MG Tablet 1 tablet Orally Once a day. Losartan Potassium 25 MG Tablet 1 tablet Orally Once a day. 6. Idiopathic pulmonary fibrosis : Continue current regimen of ; Ipratropium-Albut cindy 0.5-2.5 (3) MG/3ML Solution 3 ml as needed Inhalation every 6 hrs. Advair HFA 230-21 MCG/ACT Aerosol 2 puffs Inhalation Twice a day , Notes to Pharmacist: prn. Fluticasone Furoate 50 MCG/ACT Aerosol Powder Breath Activated 1 puff Inhalation Once a day. Levalbuterol Tartrate 45 MCG/ACT Aerosol 1-2 puffs as needed Inhalation every 4 hrs. 7. Fungal Infection : Continue current regimen of ; Diflucan 150mg PO once every 2 weeks. Nystatin [id number] UNIT/GM Ointment 1 application Externally Twice a day. Discussed the importance of regular follow up with her specialist as well as remaining UTD on vaccinations. Discussed the importance of continuing lifestyle maintanence with healhty diet and regular exercise. Follow up in June for maintancence. 11/28/2023 Mixed hyperlipidemia (ICD-10 - E78.2) Naheed is a 68 year old female with past medical history pertinent for SLE, idiopathic pulmonary fibrosis, chronic pain, HLD, osteoporosis, Type II DM, and HTN who presents for follow up on ED visit. She is doing better, and is taking prednisone. Work of breathing is at baseline. She shares she is experiencing an SLE flare at the moment. She is requesting refills on her inhaler and Zofran. She is requesting a referral to pulmonoglist Dr. Kyrie Bliss as she is having difficulty traveling to [place].She will follow up in February. 11/28/2023 Hypothyroidism, unspecified type (ICD-10 - E03.9) Naheed is a 68 year old female with past medical history pertinent for SLE, idiopathic pulmonary fibrosis, chronic pain, HLD, osteoporosis, Type II DM, and HTN who presents for follow up on ED visit. She is doing better, and is taking prednisone. Work of breathing is at baseline. She shares she is experiencing an SLE flare at the moment. She is requesting refills on her inhaler and Zofran. She is requesting a referral to pulmonoglist Dr. Kyrie Bliss as she is having difficulty traveling to [place].She will follow up in February. 11/28/2023 Hypertension, unspecified type (ICD-10 - I10) Naheed is a 68 year old female with past medical history pertinent for SLE, idiopathic pulmonary fibrosis, chronic pain, HLD, osteoporosis, Type II DM, and HTN who presents for follow up on ED visit. She is doing better, and is taking prednisone. Work of breathing is at baseline. She shares she is experiencing an SLE flare at the moment. She is requesting refills on her inhaler and Zofran. She is requesting a referral to pulmonoglist Dr. Kyrie Bliss as she is having difficulty traveling to [place].She will follow up in February. PLAN OF TREATMENT Pending Test Test Name Order Date Hemoglobin A1c 07/15/2019 Lipid Panel 07/15/2019 Comp. Metabolic Panel (14) 07/15/2019 CBC 07/15/2019 Bone Density 06/22/2022 Urinalysis 07/15/2019 CBC (COMPLETE BLOOD COUNT) 02/17/2018 COMPREHENSIVE METABOLIC PANEL 02/17/2018 HEMOGLOBIN A1C 02/17/2018 URINALYSIS, COMPLETE 02/17/2018 XR Ribs w Chest 3+ Views RT 09/23/2019 LIPID PANEL, STANDARD 09/03/2022 LIPID PANEL, STANDARD 04/29/2023 COMPREHENSIVE METABOLIC PANEL 04/29/2023 COMPREHENSIVE METABOLIC PANEL 09/03/2022 MAGNESIUM 07/10/2024 CBC (INCLUDES DIFF/PLT) 09/03/2022 URINALYSIS, COMPLETE 09/03/2022 URINALYSIS, COMPLETE 04/29/2023 HEMOGLOBIN A1c 09/03/2022 HEMOGLOBIN A1c 04/29/2023 T4, FREE 04/29/2023 TSH 04/29/2023 TSH 09/03/2022 VITAMIN D,25-OH,TOTAL,IA 09/03/2022 Next Appt Details Provider Name:RED BUTTS, 10/06/2024 11:30:00 AM, [address] [place] [address] [address], [place], [address], Insurance Providers Payer Name Payer Address Payer Phone Subscriber Number Group Number Insured Name Patient Relationship to Insured Coverage Start Date Coverage End Date Medicare Part B J14 [address] [place] [address] [id number] NAHEED ARGUELLO Self - patient is the insured 8 [facility] [address] [place] [address] [id number] NAHEED ARGUELLO Self - patient is the insured 0 MEDICATIONS ADMINISTERED Medication Instructions Date of Administration Dosage Notes MICC B12 INJECTION 04/24/2022 lot # [id number] MICC B12 INJECTION 05/08/2022 1 mL Lot #: [id number] MICC B12 INJECTION 05/23/2022 lot @ [id number] MICC B12 INJECTION 06/05/2022 1 mL Lot #: [id number] MICC B12 INJECTION 06/19/2022 lot # [id number] MICC B12 INJECTION 06/26/2022 lot # [id number] MICC B12 INJECTION 07/03/2022 1 mL Lot #: [id number] MICC B12 INJECTION 07/10/2022 lot # [id number] MICC B12 INJECTION 07/17/2022 lot # [id number] MICC B12 INJECTION 07/24/2022 MICC B12 INJECTION 07/31/2022 [id number] MICC B12 INJECTION 08/07/2022 lot # [id number] MICC B12 INJECTION 08/14/2022 MICC B12 INJECTION 08/21/2022 1 mL Lot #: [id number] MICC B12 INJECTION 08/28/2022 MICC B12 INJECTION 09/03/2022 lot # [id number] MICC B12 INJECTION 09/12/2022 lot [id number] MICC B12 INJECTION 09/19/2022 1 mL Lot #: [id number] MICC B12 INJECTION 09/26/2022 1 mL Lot # [id number] MICC B12 INJECTION 10/03/2022 lot # [id number] MICC B12 INJECTION 10/10/2022 1 mL Lot #: [id number] MICC B12 INJECTION 10/17/2022 1 mL Lot #: [id number] MICC B12 INJECTION 10/24/2022 MICC B12 INJECTION 10/31/2022 [id number] MICC B12 INJECTION 11/07/2022 lot # [id number] MICC B12 INJECTION 11/14/2022 1 mL Lot # [id number] MICC B12 INJECTION 11/21/2022 1 mL Lot # [id number] MICC B12 INJECTION 11/28/2022 [id number] MICC B12 INJECTION 12/05/2022 lot# [id number] MICC B12 INJECTION 12/12/2022 [id number] MICC B12 INJECTION 01/23/2023 1 mL Lot #: [id number] MICC B12 INJECTION 01/30/2023 lot # [id number] MICC B12 INJECTION 02/06/2023 1 mL Lot # [id number] MICC B12 INJECTION 02/13/2023 lot # [id number] MICC B12 INJECTION 02/20/2023 1 mL Lot # [id number] Prolia 05/09/2023 1 MEDICAL (GENERAL) HISTORY Medical History History ICD Code Hypothyroidism asthma lupus anemia brain anuerysm Pulmonary fibrosis Osteoporosis Surgical History Surgery Date(Month/Year) carpal tunnel release colonoscopy 3 years hysterectomy 1978 gallbladder 1979 Hospitalization History Reason Date(Month/Year) COVID 2020
--- NOTE | 2024-09-10 13:15 | ECG_ITS ---
Test Reason : pain Blood Pressure : / mmHG Vent. Rate : 081 BPM Atrial Rate : 081 BPM P-R Int : 140 ms QRS Dur : 082 ms QT Int : 392 ms P-R-T Axes : 024 -43 -11 degrees QTc Int : 455 ms Normal sinus rhythm Left axis deviation Low voltage QRS Cannot rule out Anterior infarct , age undetermined Abnormal ECG When compared with ECG of 26-JUN-2024 12:11, Premature ventricular complexes are no longer Present Minimal criteria for Anterior infarct are now Present Nonspecific T wave abnormality now evident in Anterior leads Referred By: Carlos Eduardo García Electronically Signed By:COURTNEY TRIANA MD
[2024-09-10 13:33] VITALS: BP 133/83; PULSE 82; RESP 18; TEMP 37; O2SAT 97; BMI 40.5
--- NOTE | 2024-09-10 13:33 | ED.GENADULT ---
HPI - General Adult General Chief complaint: Chest Pain Stated complaint: retaining fluid quest heart failure sent in by md Time Seen by Provider: 09/10/24 19:15 Source: patient Limitations: no limitations History of Present Illness ED Provider: Susan Singh PA-C HPI narrative: 69-year-old female with a history of morbid obesity, MS, pulmonary fibrosis, asthma, lupus, kidney stones, CAD, presents with numerous complaints. Patient states she has been having worsening diffuse swelling of bilateral lower extremities over the past 3 days with a unintentional weight gain of 8 lb. The swelling does improve when she elevates her legs while sitting. Associated generalized chest discomfort, dyspnea with exertion and new productive cough. However denies fever. In addition, patient had a recent kidney stone that passed. She is noting intermittent right flank pain from time to time. Denies dysuria or hematuria, but notes her urinary output is somewhat decreased. Denies nausea vomiting. Related Data Home Medications ?Medication ?Instructions ?Recorded ?Confirmed amlodipine 10 mg tablet 10 mg PO DAILY 01/17/24 08/17/24 mctycacmup-jrpzzlfmndbyp-ohucbuog 1 tab PO Q6H PRN Pain 01/17/24 08/17/24 50 mg-325 mg-40 mg tablet cetirizine 10 mg tablet (Zyrtec) 10 mg PO DAILY PRN Allergy Symptoms 01/17/24 08/17/24 fluticasone 250 mcg-salmeterol 50 1 ea inhalation BID 01/17/24 08/17/24 mcg/dose blistr powdr for inhalation (Wixela Inhub) fluticasone propionate 50 1 spray intranasal Q12H 01/17/24 08/17/24 mcg/actuation nasal spray,suspension hydroxychloroquine 200 mg tablet 200 mg PO BID 01/17/24 08/17/24 levalbuterol tartrate 45 1 - 2 puff inhalation Q4H PRN 01/17/24 08/17/24 mcg/actuation aerosol inhaler wheezing levothyroxine 200 mcg tablet 200 mcg PO DAILY 01/17/24 08/17/24 (Synthroid) losartan 25 mg tablet 25 mg PO DAILY 01/17/24 08/17/24 metoprolol tartrate 25 mg tablet 25 mg PO BID 01/17/24 08/17/24 montelukast 10 mg tablet 10 mg PO DAILY 01/17/24 08/17/24 naltrexone 4.5 mg capsule 4.5 mg PO DAILY 01/17/24 08/17/24 omeprazole 10 mg capsule,delayed 10 mg PO DAILY 01/17/24 08/17/24 release sodium chloride 3 % for 3 ml inhalation BID 01/17/24 08/17/24 nebulization nebulizers 03/03/24 08/17/24 benzonatate 200 mg capsule 200 mg PO TID PRN Cough 05/22/24 08/17/24 metformin 500 mg 24 hr 500 mg PO DAILY 08/17/24 08/17/24 tablet,extended release (gastric retention) Previous Rx's ?Medication ?Instructions ?Recorded doxycycline monohydrate 100 mg 100 mg PO BID 30 days #60 tabs 07/31/24 tablet methylprednisolone 4 mg tablet 8 mg (2 x 4 mg) PO BID 30 days 07/31/24 (Medrol) #120 tabs immune glob,gamma (IgG) 10 40 g IV Q4W #0 mL 08/04/24 %-gly-IgA over 50 mcg/mL injection solution (Gammagard Liquid) nystatin 100,000 unit/gram topical 1 appl topical BID 14 days #30 08/31/24 cream grams nystatin 500,000 unit tablet 1,000,000 unit (2 x 500,000 unit) 08/31/24 PO QID 10 days #80 tabs furosemide 40 mg tablet (Lasix) 40 mg PO DAILY #7 tabs 09/10/24 Allergies Allergy/AdvReac Type Severity Reaction Status Date / Time rofecoxib [From Vioxx] Allergy Unknown Verified 09/10/24 13:39 Kkqspof-QJD-UaH Reductase Allergy Muscle Verified 09/10/24 13:39 Inhibitor cramps PMFSH Past Medical History Medical History (Updated 09/12/24 @ 00:00 by Stephon Hyatt) Abnormal finding on EKG MAURO treated with BiPAP Hypogammaglobulinemia Asthma Lupus Pneumonitis Pulmonary fibrosis Family History Family History Maternal Aunt Brain abscess Bone cancer Maternal Aunt Lung cancer Melanoma Maternal Uncle Melanoma Bone cancer Lung cancer Mother Thyroid cancer Uterine cancer Social History Social History Household Members: Spouse Alcohol intake: current Alcohol intake frequency: holidays/special occasions only Patient Tobacco Use Status: Former Tobacco user Tobacco use type: Cigarette Years Smoked: 20 Years Smoked in Last 30 Days: No Use of substances other than those prescribed or required for medical reasons: No Advance Directives: No Advance Directives Information Provided: Yes service: No Current occupational status: retired Physical Exam ED Vital Signs: Vital Signs - 24 hr 09/10/24 13:33 09/10/24 18:49 09/10/24 21:14 Temperature 98.6 F 97.9 F 97.5 F Pulse Rate 82 79 80 Respiratory Rate 18 18 16 Blood Pressure 133/83 179/62 H 154/77 H Pulse Oximetry 97 96 97 Oxygen Delivery Method Room Air Room Air Room Air BMI result Body Mass Index 40.5 Course Course Course Narrative: RME, this is a rapid medical exam performed by Mono García please refer to primary provider for complete H&P- 69-year-old female past medical history significant for lupus, coronary disease presents for evaluation of leg swelling and chest tightness. The patient reports a weight increase of 8 lb in the last 2 weeks. Plan for labs, chest x-ray, EKG Medical Decision Making Medical Decision Making MDM Narrative: 69-year-old female with a history of morbid obesity, MS, pulmonary fibrosis, asthma, lupus, kidney stones, CAD, presents with numerous complaints. Patient states she has been having worsening diffuse swelling of bilateral lower extremities over the past 3 days with a unintentional weight gain of 8 lb. The swelling does improve when she elevates her legs while sitting. Associated generalized chest discomfort, dyspnea with exertion and new productive cough. However denies fever. In addition, patient had a recent kidney stone that passed. She is noting intermittent right flank pain from time to time. Denies dysuria or hematuria, but notes her urinary output is somewhat decreased. Denies nausea vomiting. Problem: MS, pulmonary fibrosis, lupus, coronary artery disease History: Per patient I have considered the following differential diagnoses: ACS, new heart failure, pneumonia, acute kidney injury, liver failure, DVT, renal colic Plan: In regard to patient's chest pain and shortness of breath, I am considering ACS versus new heart failure, with her bilateral pitting edema. Screening labs including BNP and troponin, EKG and chest x-ray were obtained. We will be ordering bilateral DVT studies, she is hypercoagulable with her obesity and lupus. She could be passing another kidney stone we will obtain a non-con steady CT. Could have pneumonia, however she is afebrile her lungs are clear to auscultation. Labs: No leukocytosis, not anemic, no electrolyte abnormality, troponin negative at less than 2.7 , second 2.9, bnp 47, urine not infected, no hematuria, viral panel neg EKG: Sinus rhythm, rate 81, no active ischemic changes no ectopy, QTC 455 Chest x-ray: XR/XR chest 2V IMPRESSION: No acute intrathoracic disease. Electronically signed by: Cosme Bartholomew MD 09/10/2024 02:39 PM EST RP Doppler study bilateral lower extremities: US/US venous duplex LE BI IMPRESSION: Normal triplex scan without evidence of deep venous thrombosis involving the lower extremities. Electronically signed by: Palomo Perez MD 09/10/2024 10:[address] abd pelvis: CT/CT abdomen pelvis wo IV con IMPRESSION: 1. No focal inflammatory process or obstruction. 2. Bilateral nephrolithiasis. No hydronephrosis. 3. Descending and sigmoid diverticulosis. Fleischner guidelines were followed. Electronically signed by: Palomo Perez MD 09/10/2024 10:51 PM EST RP Lab Data 09/10/24 13:54 09/10/24 13:54 Labs: Lab Results 09/10/24 09/10/24 09/10/24 Range/Units 13:54 22:02 22:08 WBC 7.6 (4.8-10.8) X10*3/uL RBC 5.16 (4.20-5.50) X10*6/uL Hgb 13.7 (12.0-16.0) g/dl Hct 42.9 (37.0-47.0) % MCV 83.1 (80.0-98.0) fL MCH 26.6 L (27.0-33.0) pg MCHC 31.9 (31.0-35.0) g/dl RDW 14.5 (11.0-16.0) % Plt Count 243 (160-400) X10*3/uL MPV 9.9 (9.4-12.3) fL Immature Gran % (Auto) 0.9 H (0.0-0.4) % Neut % (Auto) 68.7 (45-73) % Lymph % (Auto) 17.1 L (20-40) % Hawkins % (Auto) 9.6 (2-11) % Eos % (Auto) 3.0 (0-4) % Baso % (Auto) 0.7 (0-2) % Lymph # (Auto) 1.3 (1.2-4.9) X10*3/uL Hawkins # (Auto) 0.7 (0.1-1.2) X10*3/uL Eos # (Auto) 0.2 (0.0-0.4) X10*3/uL Baso # (Auto) 0.1 (0.0-0.2) X10*3/uL Abs Immat Gran (auto) 0.07 H (0.00-0.03) X10*3/uL Absolute Neuts (auto) 5.2 (2.0-8.3) x10*3/uL Absolute Nucleated RBC 0.000 (0.0-0.012) X10*3/uL Nucleated RBC % (auto) 0.0 (0.0-0.2) /100WBC PT 10.1 L (10.9-12.4) SEC INR 0.9 (0.9-1.1) D-Dimer High Sensitivty < 150 NG/ML Sodium 142 (135-145) mmol/L Potassium 4.1 (3.3-5.1) mmol/L Chloride 110 H (96-108) mmol/L Carbon Dioxide 25 (22-29) mmol/L Anion Gap 11 L (12-20) BUN 9 (9-16) mg/dL Creatinine 0.72 (0.5-1.4) mg/dL Estim Creat Clear Calc 91.7 Estimated GFR > 60 POC Glucose 162 H (60-115) mg/dL Random Glucose 253 H (60-115) mg/dL Calcium 8.7 D (8.4-10.2) mg/dL Total Bilirubin 0.2 (0.0-1.0) mg/dL AST 35 H (5-31) U/L ALT 38 H (0-31) U/L Alkaline Phosphatase 85 (39-117) U/L Troponin I High Sens < 2.7 2.9 (<3.5-17.0) ng/L B-Natriuretic Peptide 47 (<100) pg/mL Total Protein 6.6 (6.5-8.0) g/dL Albumin 3.8 (3.5-5.0) g/dL Lipase 25 (8-78) U/L Urine Color Urine Appearance Urine pH (5.0-9.0) Ur Specific Molino (1.005-1.025) Urine Protein (Neg-Trace) mg/dL Urine Glucose (UA) (Negative) mg/dL Urine Ketones (Negative) mg/dL Urine Blood (Negative) Urine Nitrite (Negative) Ur Leukocyte Esterase (Negative) Urine RBC (0-2) /HPF Urine WBC (0-5) /HPF Ur Squamous Epith Cells (0-2) /HPF Calcium Oxalate Crystal Urine Bacteria (None Seen) Hyaline Casts (0-2) /LPF Influenza Type A (PCR) NEGATIVE (Negative) Influenza Type B (PCR) NEGATIVE (Negative) RSV RNA Qual (PCR) NEGATIVE (Negative) SARS-CoV-2 RNA (RT-PCR) NEGATIVE (Negative) 09/10/24 Range/Units 22:32 WBC (4.8-10.8) X10*3/uL RBC (4.20-5.50) X10*6/uL Hgb (12.0-16.0) g/dl Hct (37.0-47.0) % MCV (80.0-98.0) fL MCH (27.0-33.0) pg MCHC (31.0-35.0) g/dl RDW (11.0-16.0) % Plt Count (160-400) X10*3/uL MPV (9.4-12.3) fL Immature Gran % (Auto) (0.0-0.4) % Neut % (Auto) (45-73) % Lymph % (Auto) (20-40) % Hawkins % (Auto) (2-11) % Eos % (Auto) (0-4) % Baso % (Auto) (0-2) % Lymph # (Auto) (1.2-4.9) X10*3/uL Hawkins # (Auto) (0.1-1.2) X10*3/uL Eos # (Auto) (0.0-0.4) X10*3/uL Baso # (Auto) (0.0-0.2) X10*3/uL Abs Immat Gran (auto) (0.00-0.03) X10*3/uL Absolute Neuts (auto) (2.0-8.3) x10*3/uL Absolute Nucleated RBC (0.0-0.012) X10*3/uL Nucleated RBC % (auto) (0.0-0.2) /100WBC PT (10.9-12.4) SEC INR (0.9-1.1) D-Dimer High Sensitivty NG/ML Sodium (135-145) mmol/L Potassium (3.3-5.1) mmol/L Chloride (96-108) mmol/L Carbon Dioxide (22-29) mmol/L Anion Gap (12-20) BUN (9-16) mg/dL Creatinine (0.5-1.4) mg/dL Estim Creat Clear Calc Estimated GFR POC Glucose (60-115) mg/dL Random Glucose (60-115) mg/dL Calcium (8.4-10.2) mg/dL Total Bilirubin (0.0-1.0) mg/dL AST (5-31) U/L ALT (0-31) U/L Alkaline Phosphatase (39-117) U/L Troponin I High Sens (<3.5-17.0) ng/L B-Natriuretic Peptide (<100) pg/mL Total Protein (6.5-8.0) g/dL Albumin (3.5-5.0) g/dL Lipase (8-78) U/L Urine Color Yellow Urine Appearance Cloudy Urine pH 5.5 (5.0-9.0) Ur Specific Molino 1.015 (1.005-1.025) Urine Protein Trace (Neg-Trace) mg/dL Urine Glucose (UA) 100 H (Negative) mg/dL Urine Ketones Negative (Negative) mg/dL Urine Blood Negative (Negative) Urine Nitrite Negative (Negative) Ur Leukocyte Esterase Trace H (Negative) Urine RBC 0-2 (0-2) /HPF Urine WBC 0-5 (0-5) /HPF Ur Squamous Epith Cells 6-10 (0-2) /HPF Calcium Oxalate Crystal Present Urine Bacteria 2+ (None Seen) Hyaline Casts 0-2 (0-2) /LPF Influenza Type A (PCR) (Negative) Influenza Type B (PCR) (Negative) RSV RNA Qual (PCR) (Negative) SARS-CoV-2 RNA (RT-PCR) (Negative) Discharge Plan Discharge Clinical Impression: Dependent edema, Chest pain, Abdominal pain Patient Disposition: Home, Self-Care Instructions: Leg Edema (ED), Abdominal Pain (ED), Noncardiac Chest Pain (ED) Additional Instructions: All of your labs including 2 cardiac enzymes were normal. Your urine is not infected. The chest x-ray is clear, there were no concerning changes on the EKG. The ultrasound of your lower extremities was negative for a clot. The use of compression stockings while ambulating, we will help your dependent edema. Take the Lasix as directed for the edema, call your primary care provider tomorrow for a follow up appointment. Prescriptions: New furosemide [Lasix] 40 mg tablet 40 mg PO DAILY Qty: 7 0RF No Action Gammagard Liquid 10 % solution 40 g IV Q4W nystatin 500,000 unit tablet 1,000,000 unit PO QID 10 Days Qty: 80 3RF nystatin 100,000 unit/gram cream 1 appl topical BID 14 Days Qty: 30 4RF metformin 500 mg Tablet,Er Keesha.Retention 24 Hr 500 mg PO DAILY benzonatate 200 mg capsule 200 mg PO TID PRN (Reason: Cough) methylprednisolone [Medrol] 4 mg tablet 8 mg PO BID 30 Days Qty: 120 0RF doxycycline monohydrate 100 mg tablet 100 mg PO BID 30 Days Qty: 60 0RF hydroxychloroquine 200 mg tablet 200 mg PO BID levothyroxine [Synthroid] 200 mcg tablet 200 mcg PO DAILY naltrexone 4.5 mg capsule 4.5 mg PO DAILY losartan 25 mg tablet 25 mg PO DAILY metoprolol tartrate 25 mg tablet 25 mg PO BID omeprazole 10 mg capsule,delayed release(DR/EC) 10 mg PO DAILY amlodipine 10 mg tablet 10 mg PO DAILY fluticasone propion-salmeterol [Wixela Inhub] 250-50 mcg/dose blister with device 1 ea inhalation BID levalbuterol tartrate 45 mcg/actuation HFA aerosol inhaler 1 - 2 puff inhalation Q4H PRN (Reason: wheezing) sodium chloride 3 % solution for nebulization 3 ml inhalation BID montelukast 10 mg tablet 10 mg PO DAILY fluticasone propionate 50 mcg/actuation spray,suspension 1 spray intranasal Q12H Rx Instructions: administer into each nostril cetirizine [Zyrtec] 10 mg tablet 10 mg PO DAILY PRN (Reason: Allergy Symptoms) ccvomgcrxh-wjwudhaqgyrea-zmys 50-325-40 mg tablet 1 tab PO Q6H PRN (Reason: Pain) (DME) nebulizers Misc See Rx Instructions .ROUTE Rx Instructions: As directed Interventions: ED Discharge Assessment Last Done: 09/11/24 00:00 Discharge Date/Time: 09/11/24 00:00 Print Language: Romanian
[2024-09-10 14:02] LABS: MANUAL DIFF FLAG NO
[2024-09-10 14:05] LABS: Basophils Absolute Auto 0.1 X10*3/uL (0.0-0.2); Basophils Percent Auto 0.7 % (0-2); Eosinophils Absolute Auto 0.2 X10*3/uL (0.0-0.4); Hematocrit 42.9 % (37.0-47.0); Hemoglobin 13.7 g/dl (12.0-16.0); Imm Gran Abs Auto 0.07 X10*3/uL (0.00-0.03); Imm Gran Pct Auto 0.9 % (0.0-0.4); Lymphocytes Absolute Auto 1.3 X10*3/uL (1.2-4.9); Lymphocytes Percent Auto 17.1 % (20-40); Mean Corpuscular HGB Conc 31.9 g/dl (31.0-35.0); Mean Corpuscular Hemoglobin 26.6 pg (27.0-33.0); Mean Corpuscular Volume 83.1 fL (80.0-98.0); Mean Platelet Volume 9.9 fL (9.4-12.3); Monocytes Absolute Auto 0.7 X10*3/uL (0.1-1.2); Monocytes Percent Auto 9.6 % (2-11); Neutrophils Absolute Auto 5.2 x10*3/uL (2.0-8.3); Neutrophils Percent Auto 68.7 % (45-73); Platelet Count 243 X10*3/uL (160-400); Red Blood Count 5.16 X10*6/uL (4.20-5.50); Red Cell Distribution Width 14.5 % (11.0-16.0); White Blood Count 7.6 X10*3/uL (4.8-10.8)
[2024-09-10 14:12] LABS: INTERNATIONAL NORM RATIO 0.9 (0.9-1.1); Prothrombin Time 10.1 SEC (10.9-12.4)
[2024-09-10 14:25] LABS: Alanine Aminotransferase 38 U/L (0-31); Albumin Level 3.8 g/dL (3.5-5.0); Alkaline Phosphatase 85 U/L (39-117); Anion Gap 11 (12-20); Aspartate Amino Transferase 35 U/L (5-31); Bilirubin Total 0.2 mg/dL (0.0-1.0); Blood Urea Nitrogen 9 mg/dL (9-16); Calcium 8.7 mg/dL (8.4-10.2); Carbon Dioxide 25 mmol/L (22-29); Chloride 110 mmol/L (96-108); Creatinine Clr Calc Pharmacy 91.7; Estimated Glomerular Filt Rate > 60; Glucose Random 253 mg/dL (60-115); Lipase 25 U/L (8-78); Potassium 4.1 mmol/L (3.3-5.1); Sodium 142 mmol/L (135-145); Total Protein 6.6 g/dL (6.5-8.0)
[2024-09-10 14:30] LABS: Troponin-I High Sensitivity < 2.7 ng/L (<3.5-17.0)
[2024-09-10 14:51] LABS: Influenza A PCR NEGATIVE (Negative); Influenza B PCR NEGATIVE (Negative); Resp Syncy Virus RNA Qual PCR NEGATIVE (Negative); SARS COV2 PCR INHOUSE NEGATIVE (Negative)
[2024-09-10 18:41] LABS: B Type Natriuretic Peptide 47 pg/mL (<100)
[2024-09-10 18:49] VITALS: BP 179/62; PULSE 79; RESP 18; TEMP 36.6; O2SAT 96
[2024-09-10 21:14] VITALS: BP 154/77; PULSE 80; RESP 16; TEMP 36.4; O2SAT 97
[2024-09-10 21:46] LABS: D Dimer High Sensitivity < 150 NG/ML
[2024-09-10 22:13] LABS: Glucose, Whole Blood 162 mg/dL (60-115)
[2024-09-10 22:38] LABS: Appearance Urine Cloudy; Color Urine Yellow; Glucose Urine UA 100 mg/dL (Negative); Leukocyte Esterase Urine Trace (Negative); Nitrite Urine Negative (Negative); PH 5.5 (5.0-9.0); Specific Gravity - Urine 1.015 (1.005-1.025); UMIC TRIGGER UACC YES; Urine Blood Negative (Negative); Urine Ketones Negative (Negative); Urine Protein Trace mg/dL (Neg-Trace)
[2024-09-10 22:44] LABS: Troponin-I High Sensitivity 2.9 ng/L (<3.5-17.0)
[2024-09-10 22:51] LABS: Bacteria Urine 2+ (None Seen); Calcium Oxalate Crystals Urine Present; Hyaline Casts Urine 0-2 /LPF (0-2); RBC Urine 0-2 /HPF (0-2); WBC Urine 0-5 /HPF (0-5)
[2024-09-10 23:59] VITALS: BP 159/90; PULSE 79; RESP 18; TEMP 36.4; O2SAT 96
[2024-09-11] VITALS: BP 159/90; PULSE 79; RESP 18; TEMP 36.4; O2SAT 96
== END 2024-09-11 | disposition home or self-care (01) ==
PROVIDERS: Physician Assistant; Physician Assistant Medical; Emergency Provider Emergency Medicine; PCP Internal Medicine
DX: R60.0 Localized edema (principal); R07.9 Chest pain, unspecified; R10.9 Unspecified abdominal pain; R05.9 Cough, unspecified; R06.02 Shortness of breath; Z87.891 Personal history of nicotine dependence; J45.909 Unspecified asthma, uncomplicated; Z03.818 Encounter for observation for suspected exposure to other biological agents ruled out
CPT/HCPCS: 0241U; 71046; 74176; 80053; 81001; 82947; 83690; 83880; 84484; 85025; 85379; 85610; 93005; 93970; 99285

== ENCOUNTER → 2024-09-10 13:15 | Outpatient (BNV) | payer MEDICARE, BC, SELFPAY | PROVIDERS: Emergency Provider Emergency Medicine; PCP Internal Medicine; Visit Provider Internal Medicine Cardiovascular Disease | DX: R60.9 Edema, unspecified (principal); R94.31 Abnormal electrocardiogram [ECG] [EKG] | CPT/HCPCS: 93010 ==

== ENCOUNTER 2024-10-07 10:43 | Outpatient (AMB) | payer MEDICARE, BC, SELFPAY ==
[2024-10-07 11:07] VITALS: BP 138/74; PULSE 66; BMI 38.9
--- NOTE | 2024-10-07 11:07 | A.OFFVIS_ITS ---
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 ECG EKG Joint Setter Required: No Accompanied by: Self / Same As Patient Allergies rofecoxib [From Vioxx] Allergy (Verified 09/10/24 13:39) Unknown Qtqlbsm-KBC-MzW Reductase Inhibitor Allergy (Verified 09/10/24 13:39) Muscle cramps Iodinated Contrast Media Adverse Reaction (Intermediate, Unverified 10/07/24 11:50) Unknown Medication List - Last Reconciled 10/07/24 by Antonio Alberto MD clpddjwjxd-plezxrnhjrbcf-qsvd 50-325-40 mg 1 tab PO Q6H PRN cetirizine (Zyrtec) 10 mg PO DAILY PRN doxycycline monohydrate 100 mg PO BID 30 days fluticasone propion-salmeterol 250-50 mcg/dose (Wixela Inhub) 1 ea inhalation BID fluticasone propionate 50 mcg/actuation 1 spray intranasal Q12H hydroxychloroquine 200 mg PO BID immun glob G(IgG)-gly-IgA ov50 10 % (Gammagard Liquid) 40 grams IV Q4W levalbuterol tartrate 45 mcg/actuation 1 - 2 puffs inhalation Q4H PRN 30 days levothyroxine (Synthroid) 200 mcg PO DAILY lifitegrast 5% (Xiidra) 1 drp ophthalmic (eye) BID losartan 25 mg PO DAILY metformin ER 500 mg PO DAILY metoprolol tartrate 25 mg PO BID nebulizers As directed nystatin 1,000,000 units (2 x 500,000 unit) PO QID 10 days nystatin 1 appl topical BID 14 days omeprazole 20 mg PO TID sodium chloride 3% 3 mL inhalation BID tirzepatide (Mounjaro) 5 mg subcut QWEEK HPI Comments Details: Naheed is here for consultation regarding chest pains. Previously seen at [facility]. Many comorbidities including diabetes, hypertension, Nelia's thyroiditis, lupus, hypokalemia global anemia, fibromyalgia, migraine, restrictive lung disease among others. She states she has had COVID multiple times. Over the last couple of years or so, she gets frequent chest pains. This can happen any time but she notices them with exertion as well. Some radiation to the neck area. Difficult to say if it is cardiac or not as there are so many comorbidities. Additionally, she states she has got pulmonary fibrosis and she apparently thought that was causing chest pains. 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 Otherwise, she also has a history of supraventricular/ventricular ectopy for which she takes beta- blockers. [facility] Medical History (Updated 10/07/24 @ 11:29 by Antonio Alberto MD) Abnormal finding on EKG MAURO treated with BiPAP Hypogammaglobulinemia Asthma Lupus Pneumonitis Pulmonary fibrosis Family History Maternal Aunt Brain abscess Bone cancer Maternal Aunt Lung cancer Melanoma Maternal Uncle Melanoma Bone cancer Lung cancer Mother Thyroid cancer Uterine cancer Social History Household Members: Spouse Alcohol intake: current Alcohol intake frequency: holidays/special occasions only Patient Tobacco Use Status: Former Tobacco user Tobacco use type: Cigarette Years Smoked: 20 Years service: No Current occupational status: retired Review of Systems Const Denies chills, Denies daytime sleepiness, Denies fatigue, Denies fever(s), Denies poor appetite, Denies snoring, Denies stops breathing during sleep, Denies weakness, Denies weight gain and Denies weight loss Eyes Denies loss of vision ENT Denies dizziness and Denies hearing loss Card Denies chest pain, Denies irregular heart rhythm, Denies claudication, Denies leg edema, Denies lightheadedness, Denies palpitations, Denies dyspnea on exertion and Denies orthopnea Resp Denies cough, Denies excessive phlegm production, Denies dyspnea on exertion, Denies snoring and Denies wheezing GI Denies abdominal pain, Denies hematochezia, Denies change in bowel habits, Denies nausea and Denies vomiting Denies urinary frequency and Denies dysuria Musc Denies arthralgias, Denies muscle weakness, Denies numbness and Denies other Skin/Breast Denies nail changes and Denies rash Neuro Denies Abnormal speech present, Denies dizziness, Denies loss of vision, Denies memory loss, Denies numbness and Denies weakness Psych Denies depression and Denies memory loss Endo Denies fatigue and Denies palpitations Sheldon/Lymph Denies easy bruising Aller/Immun Denies wheezing Physical Exam Vital Signs: Last Vital Signs Pulse 66 10/07/24 11:07 BP 138/74 10/07/24 11:07 BMI result Body Mass Index 38.9 Const General: comfortable and no acute distress Orientation/consciousness: patient oriented x3 HEENT Other: Unremarkable Head: Yes normal to inspection Neck Neck: Yes normal visual inspection Chest Chest palpation & inspection: normal inspection of the chest Resp Auscultation: clear to auscultation bilaterally Cardio Palpation: normal PMI Heart sounds: S1 normal heart sound present, S2 normal heart sound present, no gallops, no murmurs and no rubs GI Palpation (GI): Soft to palpation Back/Spine/Pelvis Other: unremarkable Skin General skin exam: no rashes or lesions noted Neuro General: patient oriented x3 Speech: No Abnormal speech present Extrem General: Yes normal to inspection Psych Mental Status: mental status grossly normal Assessment & Plan Assessment & Plan (1) Precordial chest pain: Code(s): R07.2 - Precordial pain Category: Medical Plan In the recent EKG, underlying rhythm is sinus at 81/Min; cannot exclude old anterior infarct could also be from body habitus; nonspecific changes; normal OK/corrected QT. It does appear change compared to the last EKG but could all be from lead positioning. Overall, chest pain with typical/atypical components, many comorbidities. Prior stress perfusion imaging from 2020 reported to have no significant reversible defects. Fixed defect in the apical/distal inferior/inferolateral campos thought to be artifactual and less likely infarct. Due to her ongoing symptoms, we will plan on coronary CTA/echocardiogram for further evaluation. Apparently, history of IVP dye allergy in the remote past. Will plan on steroids/Benadryl before CTA. Discussed. Orders: Orders CA echo transthoracic complete Today R07.2 - Precordial pain CT Cardiac Coronary Angio Today I25.10 - Atherosclerotic heart disease of [place] coronary artery without angina pectoris, R07.2 - Precordial pain Coding Level of Care Code New Pt Level 4 (30959) Diagnoses Precordial chest pain R07.2
--- OUTSIDE RECORDS SUMMARY | 2024-10-07 11:58 | XMS_ITS | Patient Health Record ---
Author Organization [facility] Address [address] [place] [address] Care Team Providers Care Cable Stretcher And Tester Name Role Phone Yashira THOMAS, Shawna Primary Care Provider Steph Dotson Unavailable [phone] Allergies Allergen (clinical drug ingredient) Drug/Non Drug Allergy documented on EMR Reaction Allergy Type Onset Date Status Adhesive Unknown Allergy Active Shellfish (FN) Shellfish-derived Products Unknown Drug Allergy Active Substance with 5-tfmflpl-6-methylgluta ryl-coenzyme A reductase inhibitor mechanism of action [...] Problem Acquired hammer toe of right foot (4745712516139368 ) Other hammer toe(s) (acquired), right foot (M20.41) Active confirmed Problem Acquired hammer toe of left foot (9145632429957740 ) Other hammer toe(s) (acquired), left foot (M20.42) Active confirmed Problem Polyneuropathy due to type 2 diabetes mellitus (375777881) Type 2 diabetes mellitus with diabetic polyneuropathy (E11.42) Active confirmed Plan Of Treatment Pending Test Test Name Order Date [id number] NAIL, 6 OR MORE 09/27/2020 [id number] NAIL, 1-5 11/29/2020 [id number] Plate 09/27/2020 [id number] SKIN LESIONS, OVER 4 09/27/19 21 [id number] SKIN LESIONS, OVER 4 11/30/19 21 [id number] DYSTROPHIC NAILS ANY # Insurance Providers Payer Name Payer Address Payer Phone Subscriber Number Group Number Insured Name Patient Relationship to Insured Coverage Start Date Coverage End Date Medicare National [employer] [address] [place] [address] [id number] Naheed Luna Self - patient is the insured [facility] [address] [place] [address] [id number] Naheed Luna Self - patient is the [...] Surgery Date(Month/Year) tonsillectomy and adenoidectomy 1962 D&C [id number] hysterectomy 1978 oopherectomy 1978 appendectomy 1978 cholecystectomy 1979 disc surgeryC-5,C-6,SI,L5 S-1 Vplate ant erior 2002,2006,2008 carpal tunnel surgery 2003,2005 Hospitalization History Reason Date(Month/Year) [facility] hypokalemia, hypo magnesemia, thyroi d toxicosis 09/2020
--- OUTSIDE RECORDS SUMMARY | 2024-10-07 11:58 | XMS_ITS | Clinical Summary ---
Author Organization [facility] Address [address] [place] [address] Care Team Providers Care Package Handler Name Role Phone Shawna Ac MD Primary Care Provider [phone] Allergies Active Allergy Reactions Criticality Noted Date Comments Simvastatin Other (See Comments) 04/10/2011 Medications Medication Sig Dispensed Refills Start Date End Date Status amLODIPine (NORVASC) tablet 10 mg amlodipine 10 mg tablet 0 03/02/2015 Active levothyroxine (SYNTHROID) tablet 200 mcg Synthroid 200 mcg tablet 0 01/15/2019 Active metoprolol tartrate (LOPRESSOR) 25 MG tablet TAKE ONE TABLET BY MOUTH TWICE A DAY NEEDED HEART RATE/PALPITATIONS 0 12/08/2021 Active Active Problems No known active problems Social History Tobacco Use Types Packs/Day Years Used Date Smoking Tobacco: Former Smokeless Tobacco: Never Alcohol Use Standard Drinks/Week Comments Yes 0 (1 standard drink = 0.6 oz pur e alcohol) Sex and Gender Information Value Date Recorded Sex Assigned at Female 01/19/2022 2:03 PM EDT Gender Identity Not on file Sexual Orientation Not on file Job Start Date Occupation Industry Not on file Not on file Not on file Last Filed Vital Signs Vital Sign Reading Time Taken Comments Blood Pressure - - Pulse - - Temperature - - Respiratory Rate - - Oxygen Saturation - - Inhaled Oxygen Concentration - - Weight 113.4 kg (250 lb) 01/19/2022 1:35 PM EDT Height 170.2 cm (5' 7 ) 01/19/2022 1:35 PM EDT Body Mass Index 39.16 01/19/2022 1:35 PM EDT Plan of Treatment Health Maintenance Due Date Last Done Comments Hepatitis C Screening 1955 COVID-19 Vaccine (#1) 01/29/1956 Depression Screening 1965 BMI Counseling 1971 Preventative Health Evaluation 1971 DTap / Tdap / Td (1 - Tdap) 1972 Colon Cancer Screening (Colonoscopy) 1998 Breast Cancer Screening (Mammogram) 2003 Shingrix-Zoster Vaccine (1 of 2) 2003 Fall Risk Assessment 2018 Osteoporosis Screening (DEXA Scan) 2018 Pneumococcal Vaccine (2 of 2 - PCV) 2018 06/24/2017 Influenza Vaccine (#1) 2024 0, 06/16/2018, 06/24/2017, Additional history exists RSV Adult > 60+ Yrs or (1 - 1-dose 75+ series) 2028 Hepatitis B Vaccines Aged Out No long er eligible based on patient's age to complete this topic RSV Ped < 20 months Aged Out No longe r eligible based on patient's age to complete this topic Care Teams Package Handler Relationship Specialty Start Date End Date Shawna Ac MD [address] [place] [address] PCP - General Family Medicine 01/19/22
--- OUTSIDE RECORDS SUMMARY | 2024-10-07 11:58 | XMS_ITS | Clinical Summary ---
Author Organization [facility], Address [address] [place] [address] Phone Care Team Providers Care Pick And Shovel Man Name Role Phone Shawna Ac MD Primary Care Provider [phone] Allergies Active Allergy Reactions Criticality Noted Date Comments Adhesive Tape Other (see comments) 07/11/2021 Hydroxychloroquine Other (see comments) 021 Iodinated Contrast Media Other (see comments) 1 Lisinopril Other (see comments) 07/11/2021 Nsaids Other (see comments) 07/11/2021 Simvastatin Other (see comments) 07/11/2021 Medications albuterol (2.5 MG/3ML) 0.083% nebulizer solution Comments: Filled Date: May 17 2015 12:00AM Patient Notes: USE 1 UNIT DOSE VIA UPDRAFT EVERY 4-6 HOURS NEEDED FOR WHEEZING . Duration: 5 05/17/2015 Active amLODIPine (NORVASC) 10 MG tablet Take 1 tablet by mouth 1 (one) time each day 03/02/2015 Active albuterol HFA (Proventil HFA) 108 (90 Base) MCG/ACT inhaler Comments: Filled Date: May 17 2015 12:00AM Patient Notes: INHALE 2 PUFFS EVERY 6 HOURS NEEDED Duration: 05/17/2015 Active Butalbital-APAP -Caffeine (Fioricet) 50-300-40 MG capsule Active fluticasone (FLONASE) 50 MCG/ACT nasal spray Comments: Filled Date: May 17 2015 12:00AM Patient Notes: INHALE 1 SPRAY IN EACH NOSTRIL ONCE DAILY. Duration: 90 11/17/2014 Active furosemide (LASIX) 40 MG tablet Take 1 tablet by mouth 1 (one) time each day 07/08/2015 Active levothyroxine (SYNTHROID, LEVOTHROID) 300 MCG tablet Take 1 tablet by mouth 1 (one) time each day 03/01/2015 Active metFORMIN XR (GLUCOPHAGE-XR) 500 MG 24 hr tablet Take 1 tablet by mouth 1 (one) time each day in the evening 03/04/2015 Active montelukast (SINGULAIR) 10 MG tablet Take 1 tablet by mouth at bed time 05/18/2015 Active nitroglycerin (Nitrostat) 0.[address] 1 tablet under the tongue Active oxyCODONE (ROXICODONE) 15 MG immediate release tablet Take by mouth 06/27/2015 Active phenazopyridine (Pyridium) 100 MG tablet Take 1 tablet by mouth 1 (one) time each day Active tiZANidine (ZANAFLEX) 4 MG capsule Take 1 capsule by mouth at bed time 03/04/2015 Active losartan (COZAAR) 25 MG tablet Take 25 mg by mouth 1 (one) time each day Active Active Problems Problem Noted Date Diagnosed Date Type 2 diabetes mellitus without complication Systemic lupus erythematosus 10/17/2020 Hyperlipidemia 10/17/2020 Essential hypertension 10/17/2020 Immunizations Name Administration Dates Next Due Influenza Vaccine, Quadrivalent, Adjuvanted 11/2019 Family History Medical History Relation Comments Diabetes Father at 59 Heart disease Father heart attack (de ceased) Kidney disease Father kidney stones Cancer Mother brain thyroid ut erine Stroke Mother Relation Status Comments Father Mother Social History Tobacco Use Types Packs/Day Years Used Date Smoking Tobacco: Never Smokeless Tobacco: Never Alcohol Use Standard Drinks/Week Comments No 0 (1 standard drink = 0.6 oz pur e alcohol) Comments Unknown Sex and Gender Information Value Date Recorded Sex Assigned at Not on file Legal Sex Female 4:41 PM EST Gender Identity Not on file Sexual Orientation Not on file Plan of Treatment Health Maintenance Due Date Last Done Comments Breast Cancer Screening 1955 Colorectal Cancer Screening: Annual FOBT 2002 Colorectal Cancer Screening: Colonoscopy 2002 Colorectal Cancer Screening: Sigmoidoscopy 2002 Pneumococcal Vaccine: 65+ Ye ars (1 of 1 - PCV) 2018 Diabetes: Hemoglobin A1C 10/16/2020 Diabetes: Ophthalmology Exam 10/16/2020 Diabetes: Pedal Pulse Checked 10/16/2020 Diabetes: Sensory Foot Exam 10/16/2020 Diabetes: Visual Foot Exam 10/16/2020 Influenza Vaccine (#1) 2024 06/18/2020 Hepatitis B Vaccine Aged Out No longe r eligible based on patient's age to complete this topic Insurance MEDICARE [facility] Care Teams Pick And Shovel Man Relationship Specialty Start Date End Date Shawna Ac MD [address] [place] [address] PCP - General 09/26/20
--- OUTSIDE RECORDS SUMMARY | 2024-10-07 11:59 | XMS_ITS | Clinical Summary ---
Author Organization [facility] Address [address] [place] [address] Care Team Providers Care Manager Mechanical Name Role Phone Aleksandr Ortiz MD Primary Care Provider [phone] Surgical History Surgery Date Site/Laterality Comments CHOLECYSTECTOMY PROCEDURE: HISTORICAL CHOLECYSTECTOMY TONSILLECTOMY PROCEDURE: HISTORICAL TONSILLECTOMY; COMMENT: and adenoidectomy HYSTERECTOMY PROCEDURE: HISTORICAL HYSTERECTOMY; COMMENT: CHARLEY BSO OTHER SURGICAL HISTORY PROCEDURE: HISTORY OTHER; COMMENT: Surgery for relief elev intraocular press cyclocryotherapy APPENDECTOMY PROCEDURE: HISTORICAL APPENDECTOMY; COMMENT: with the [facility]. OTHER SURGICAL HISTORY PROCEDURE: ---- OTHER ----; COMMENT: cevical discetomy and fusion C6-7 OTHER SURGICAL HISTORY PROCEDURE: ---- OTHER ----; COMMENT: anterior lumbar fusion L5-S1 OTHER SURGICAL HISTORY PROCEDURE: ---- OTHER ----; COMMENT: R SI joint surgery OTHER SURGICAL HISTORY PROCEDURE: OTHE THERAPIST AT HOSPICE; COMMENT: laparoscopy x2 OTHER SURGICAL HISTORY PROCEDURE: ---- OTHER ----; COMMENT: bilateral dequevrains release CARPAL TUNNEL RELEASE Bilateral PROCEDURE: HISTORICAL CARPAL TUNNEL REL Medical History Medical History Date Comments Glaucoma 08/27/2012 DX:Glaucoma Asthma 02/11/2018 DX:Asthma Benign neoplasm of colon 01/06/2013 DX:Shyam gn neoplasm of colon Nelia's thyroiditis 03/09/2013 DX:Brannon andra's thyroiditis; COMMENT: Comments: Jayesh. Managed by Dr Enriqueta Gabriel serology teacher in [place] Substance dependence, contin uous ([facility]/HCC) 12/10/2017 DX:Substance dependence, con tinuous ([facility]); COMMENT: Opioids Paresthesia of both legs 06/24/2017 DX:Pare sthesia of both legs Vitamin D deficiency 11/11/2017 DX:Vitamin D deficiency Systemic lupus erythematosus (CMS/HCC) 05/05/2018 DX:Systemic lupus erythematosus ([facility]); COMMENT: Comments: Was seeing Dr Moreno Rayvioletteud's disease 02/11/2018 DX:Raynaud's d isease 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 DX:Proctalgia f ugax Osteoporosis 12/17/2016 DX:Osteoporosis; COMMENT: Comments: Has Vitamin D Deficieny and is followed by Enriqueta Gabriel MD Senior Manufacturing Test Engineer Major depression, recurrent (CMS/HCC) 07/11/2011 DX:Major depression, recurrent ([facility]) Nephrolithiasis 01/25/2010 DX:Nephrolithias is Lumbar degenerative disc disease 06/13/2016 DX:Lumbar degenerative disc disease Irritable bowel syndrome 01/06/2013 DX:Irri table bowel syndrome; COMMENT: Comments: diagnosed by Dr Decker gastroenterology [facility] colonoscopy negative jul 05 2003 for cancer Hypothyroidism 11/11/2017 DX:Hypothyroidis m 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/2010 DX:Hypogammaglobulinemia ([facility]); COMMENT: Comments: Was seen by [facility] recovery special tactics in 2001 who ruled out multiple myeloma and suggested no futher testing.This was Dr Josh pool 08/17/2002.There was no monoclonal protein,No monoclonal gammopathynegative skeletal survey at that time as well Hypertension 05/05/2018 DX:Hypertension Hyperlipidemia 05/05/2018 DX:Hyperlipidemi a Herpes simplex 06/08/2010 DX:Herpes simple x; COMMENT: Comments: recurrent gets on vagina Fibromyalgia 12/01/2014 DX:Fibromyalgia; COMMENT: Comments: Managed by Dr Montgomery for pain Diverticulosis 02/19/2013 DX:Diverticulosi s 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 in [place] put her on BMP a novel medication that according to her caused damage and resulted in surgeries. Her pain management doctor is Dr Montgomery [phone] Bias Cutting Machine Operator Dr Gomez [phone]. Diabetes mellitus type 2, un complicated (CMS/HCC) 05/05/2018 DX:Diabetes mellitus type 2, uncomplicated (HCC) History of Lyme disease 10/13/2018 DX:Histo ry of Lyme disease Family History Medical History Relation Name Comments Diabetes Father autoimmune dise ase Lung cancer Maternal Grandmother Uterine cancer Mother thyroid cance r, emphysema Relation Name Status Comments Brother Alive Father Maternal Grandfather Maternal Grandmother Mother Paternal Grandfather Paternal Grandmother Sister 1 Alive Sister 2 Alive Social History Tobacco Use Types Packs/Day Years Used Date Smoking Tobacco: Former Cigarettes 0.5 35.1 0 09/16/1968 - 10/17/2003 Smokeless Tobacco: Never Alcohol Use Standard Drinks/Week Comments Not Currently 0 (1 standard drink = 0.6 oz pur e alcohol) Sex and Gender Information Value Date Recorded Sex Assigned at Not on file Gender Identity Not on file Sexual Orientation Not on file Obstetrics History Last Filed Vital Signs Vital Sign Reading Time Taken Comments Blood Pressure 120/80 03/12/2023 8:03 AM EDT Pulse 78 03/12/2023 8:03 AM EDT Temperature - - Respiratory Rate - - Oxygen Saturation - - Inhaled Oxygen Concentration - - Weight 109 kg (241 lb) 03/12/2023 8:03 AM EDT Height 167.6 cm (5' 6 ) 03/12/2023 8:03 AM EDT Body Mass Index 38.9 03/12/2023 8:03 AM EDT Plan of Treatment Health Maintenance Due Date Last Done Comments Diabetes: Annual GFR (Glomerular Filtration Rate) 1955 COVID-19 Vaccine (#1) 1958 Diabetes: Annual Foot Exam 1963 Diabetes: Annual Retina Eye Exam 1963 DTaP,Tdap,and Td Vaccines (1 - Tdap) 1972 Zoster Vaccines (1 of 2) 2003 RSV Immunization Patients 60+ Years Old (1 - Risk 60-74 years 1-dose series) 2013 Pneumococcal Vaccine: 65+ Years (2 of 2 - PCV) 06/24/2018 06/24/2017 Breast Cancer Screening 12/01/2020 12/01/2018 Cholesterol Screening (Lipid Panel) 08/19/2022 Colorectal Cancer Screening: Colonoscopy 08/19/2022 Depression Screening 08/19/2022 Falls Risk Assessment 08/19/2022 Hepatitis C Screening 08/19/2022 Osteoporosis Screening (Bone Density Screening) 08/19/2022 Social Influencers of Health Screening 08/19/2022 Diabetes: Annual Urine Albumin-Creatinine Ratio (uACR) 08/31/2022 Diabetes: Blood Sugar Control Test (HGBA1C) 08/31/2022 Hypertension/CHF/CAD Annual BMP Blood Test 08/31/2022 Influenza Vaccine (#1) 2024 3, 06/18/2020, 06/16/2018, Additional history exists HIB Vaccines Aged Out No longer eligi ble based on patient's age to complete this topic HPV Vaccines Aged Out No longer eligi ble based on patient's age to complete this topic Hepatitis A Vaccines Aged Out No long er eligible based on patient's age to complete this topic Hepatitis B Vaccines Aged Out No long er eligible based on patient's age to complete this topic IPV Vaccines Aged Out No longer eligi ble based on patient's age to complete this topic MMR Vaccines Aged Out No longer eligi ble based on patient's age to complete this topic Meningococcal ACWY Vaccine Aged Out N o longer eligible based on patient's age to complete this topic RSV Immunization Patients Under 20 months Aged Out No longer eligible based on patient's age to complete this topic Varicella Vaccines Aged Out No longer eligible based on patient's age to complete this topic Procedures Procedure Name Priority Date/Time Associated Diagnosis Comments [facility] SCREENING DIGITAL Routine 12/01/2018 4:18 PM EDT Encounter for screening mammogram for malignant neoplasm of breast from Last 3 Months or Most Recently Relevant to Health Maintenance Results * SOREN SCREENING DIGITAL (12/01/2018 4:18 PM EDT) Anatomical Region Laterality Modality Mammography 12/01/2018 10:4 8 AM EDT Narrative 12/01/2018 4:18 PM EDT [facility] Diagnostic Imaging Department [address] [place] [address] [id number] Patient: ??NAHEED LUNA ?/Age/Sex: 1955 - 63 - F Unit#: ??[id number] ? Location/Status: ??SPDIMAM/REG CLI ? Mnemonic/Ordering Site: ??DIGSC/SPMAM Ordering Physician: ??SHAWNA AC MD [facility] Screening Digital - 12/01/18 - 1139 EXAM: [facility] Screening Digital EXAM DATE AND TIME: 12/01/2018 11:40 AM HISTORY: ??Screening. COMPARISON: ??02/13/17, 04/09/13 TECHNIQUE: CC and MLO views of both breasts were obtained using full field digital mammography. Bilateral digital breast tomosynthesis was performed in the MLO projection. Computer aided detection with the Parallels 7.2-H was employed. TISSUE DENSITY: a. The breasts are almost entirely fatty. FINDINGS: No suspicious masses, grouped microcalcifications, or areas of architectural distortion are seen. Vascular calcification is present. The skin is unremarkable. IMPRESSION: Stable mammographic appearance of the breasts. ??No evidence of malignancy is seen. A negative mammogram in the presence of a clinically suspicious palpable abnormality does not preclude the possibility of malignancy or alter the indications for biopsy. BI-RADS: ??Category 2: Benign RECOMMENDATION(S): 1: Routine screening mammogram BILATERAL in 1 year. [address]6112, 74914 3342F, 7025F Dictating Physician: ??URVASHI IBARRA MD Electronically Signed by: ??URVASHI IBARRA MD Dic Date/Time: ??12/01/18 1552 Sign date/Time: ??12/01/18 1618 Procedure Note Urvashi Ibarra MD - 09/05/2022 [facility] Diagnostic Imaging Department [address] [place] [id number] Patient: NAHEED LUNA Florinda PetersonB./Age/Sex: 1955 - 63 - F Unit#: [id number] Location/Status: [facility] CLI Mnemonic/Ordering Site: [facility] Ordering Physician: SHAWNA AC MD [facility] Screening Digital - 12/01/18 - 1139 EXAM: [facility] Screening Digital EXAM DATE AND TIME: 12/01/2018 11:40 AM HISTORY: Screening. COMPARISON: 02/13/17, 04/09/13 TECHNIQUE: CC and MLO views of both breasts were obtained using fullfield digital mammography. Bilateral digital breast tomosynthesis was performedin the MLO projection. Computer aided detection with the Parallels 7.2-Hwas employed. TISSUE DENSITY: a. The breasts are almost entirely fatty. FINDINGS: No suspicious masses, grouped microcalcifications, or areas ofarchitectural distortion are seen. Vascular calcification is present. The skin is unremarkable. IMPRESSION: Stable mammographic appearance of the breasts. No evidence of malignancyis seen. A negative mammogram in the presence of a clinically suspicious palpable abnormality does not preclude the possibility of malignancy or alter the indications for biopsy. BI-RADS: Category 2: Benign RECOMMENDATION(S): 1: Routine screening mammogram BILATERAL in 1 year. 33996, 47312 9452F, 7092F Dictating Physician: URVASHI IBARRA MD Electronically Signed by: URVASHI IBARRA MD Dic Date/Time: 12/01/18 1642 Sign date/Time: 12/01/18 1618 Shawna Ac MD IMG BI PROCEDURES from Last 3 Months or Most Recently Relevant to Health Maintenance Care Teams Manager Mechanical Relationship Specialty Start Date End Date Aleksandr Ortiz MD PCP - General 08/08/22
== END 2024-10-07 11:42 | disposition home or self-care (01) ==
PROVIDERS: Visit Provider Internal Medicine
DX: R07.2 Precordial pain (principal)
CPT/HCPCS: 99204

== ENCOUNTER → 2024-10-07 10:43 | Outpatient (BNVA) | payer MEDICARE, BC, SELFPAY | PROVIDERS: Visit Provider Internal Medicine | DX: I10 Essential (primary) hypertension (principal); R07.2 Precordial pain; I25.10 Atherosclerotic heart disease of native coronary artery without angina pectoris; Z87.891 Personal history of nicotine dependence | CPT/HCPCS: 99202 ==

== ENCOUNTER → 2024-10-20 11:01 | Outpatient (BNV) | payer MEDICARE, BC, SELFPAY | PROVIDERS: PCP Nurse Practitioner Acute Care; Visit Provider Internal Medicine | DX: R07.2 Precordial pain (principal) | CPT/HCPCS: 93306 ==

== ENCOUNTER → 2024-10-22 10:54 | Outpatient (BNVA) | payer MEDICARE, BC, SELFPAY | PROVIDERS: PCP Nurse Practitioner Acute Care; Visit Provider Hospitalist | DX: J84.10 Pulmonary fibrosis, unspecified (principal); G47.33 Obstructive sleep apnea (adult) (pediatric); J98.4 Other disorders of lung; J45.20 Mild intermittent asthma, uncomplicated; M32.9 Systemic lupus erythematosus, unspecified; D80.1 Nonfamilial hypogammaglobulinemia; Z99.89 Dependence on other enabling machines and devices; Z87.891 Personal history of nicotine dependence | CPT/HCPCS: 99212 ==

== ENCOUNTER 2024-12-02 11:29 | Outpatient (REF) | payer MEDICARE, BC, SELFPAY ==
[2024-12-02 12:44] LABS: Anion Gap 11 (12-20); Blood Urea Nitrogen 14 mg/dL (9-16); Calcium 10.1 mg/dL (8.4-10.2); Carbon Dioxide 29 mmol/L (22-29); Chloride 107 mmol/L (96-108); Estimated Glomerular Filt Rate > 60; Glucose Random 151 mg/dL (60-115); Potassium 4.5 mmol/L (3.3-5.1); Sodium 142 mmol/L (135-145)
== END 2024-12-02 11:30 | disposition home or self-care (01) ==
LOC: HO.LAB 11:29
PROVIDERS: PCP Nurse Practitioner Acute Care; Visit Provider Internal Medicine
DX: R07.2 Precordial pain (principal)
CPT/HCPCS: 36415; 80048

== ENCOUNTER 2024-12-04 10:00 | Outpatient (RCR) | payer MEDICARE, BC, SELFPAY ==
[2024-10-09 09:51] VITALS: BP 145/90; PULSE 66; RESP 16; TEMP 36.1; O2SAT 97; BMI 38.2
[2024-10-09] MEDS: diphenhydrAMINE HCL 25 MG CAPSULE PO (10:25)
[2024-10-09] MEDS: Acetaminophen 325 MG TABLET 650 MG PO (10:26)
[2024-10-09 10:45] VITALS: BP 141/65; PULSE 68
[2024-10-09] MEDS: Immune Globulin 10% Gammagard 20 GM/200 ML VIAL IV ×2 (10:45→12:12)
[2024-10-09 11:21] VITALS: BP 141/61; PULSE 63; RESP 16
[2024-10-09 12:15] VITALS: BP 155/68; PULSE 65; RESP 16
--- NOTE | 2024-10-09 12:37 | HO.INF ---
pt c/o headache.. ivig titrated; rate decreased to 150ml/hr. wctm
--- NOTE | 2024-10-09 13:26 | HO.INF ---
max rate 150ml/hr for future infusions at pt request d/t c/o headaches
[2024-12-04] VITALS (13 sets, daily range): BP systolic 100–144; BP diastolic 44–90; PULSE 60–77; RESP 16; TEMP 35.8; O2SAT 97
--- NOTE | 2024-12-04 10:25 | HO.INF ---
pt states she took her own benadryl and tylenol
[2024-12-04] MEDS: Immune Globulin 10% Gammagard 20 GM/200 ML VIAL IV ×2 (10:30→13:18)
== END 2024-12-15 10:06 | disposition home or self-care (01) ==
LOC: HO.INF 10:00
PROVIDERS: Visit Provider Hospitalist
DX: D80.1 Nonfamilial hypogammaglobulinemia (principal)
CPT/HCPCS: 96365; 96366; J1569

== ENCOUNTER 2024-12-15 11:26 | Day surgery (SDC) | payer MEDICARE, BC, SELFPAY ==
[2024-12-15] VITALS (17 sets, daily range): BP systolic 134–176; BP diastolic 56–87; PULSE 74–84; RESP 16–22; TEMP 36.8–37; O2SAT 95–98; BMI 39.2; BMI 41.3
--- NOTE | ~2024-12-15 | IR_ITS ---
PROCEDURE: IR INSERTION OF TUNNEL CATHETER CLINICAL INFORMATION: CLINICAL HISTORY: Cancer. The patient presents to interventional radiology for placement of a port for chemotherapy. PROCEDURES: 1. Real-time ultrasound-guided access into the right IJ after documentation of selected vessel patency, and permanent image storing in the patient records. 2. Placement of a 6.6 Bolivian single-lumen power port. CLINICIAN: Cruz Maciel NP MEDICATIONS: - Versed , Fentanyl , Lidocaine 1% 10 mL SQ -Antibiotics: Ancef 2g -For additional details, please see nursing flowsheet. Complications: None. Estimated blood loss: <5 ml Specimens: None. Contrast: None. MODERATE SEDATION TIME: 60 min PROCEDURE NOTE: The procedure, risks, benefits, and alternatives were carefully explained to the patient and written informed consent was obtained. The patient was placed supine on the fluoroscopy table. A timeout was performed. The right neck and chest was prepped and draped in usual sterile fashion. Maximum barrier technique was utilized. Local anesthesia was administered to the access site with 1% lidocaine. Under ultrasound guidance, the right IJ was accessed with a 5 fr micropuncture set. A 0.035 in wire was advanced into the IVC. A peel-away sheath was advanced over the wire and into the SVC, and the wire was removed. Next, subcutaneous lidocaine was administered to the chest. The port pocket was created after the skin incision, utilizing blunt dissection. Using blunt dissection, a subcutaneous tunnel was created that connects from the port pocket to the venotomy site. Through the peel-away sheath, the 6.6 Bolivian port catheter was placed. The catheter position was verified with fluoroscopy to be at the superior vena cava/right atrial junction. The port was connected to the catheter and was placed in the pocket. The venotomy site was closed with a 3-0 Vicryl subcutaneous suture. The port incision site was closed with interrupted 3-0 Vicryl subcutaneous sutures and surgical glue. Prior to closing the skin, 1 g of Ancef solution was placed in the pocket. The port was tested, flushed, and packed with heparin per routine protocol. The patient tolerated the procedure well. The patient was stable after the procedure and was transferred to the PACU. The procedure was performed under moderate sedation and with a dedicated nurse with continuous monitoring of vital signs. A permanent image of the ultrasound the neck and fluoroscopic image of the chest was saved and sent to PACS. FINDINGS: 1. Patent right IJ 2. Placement of a 6.6 Bolivian single lumen power port. 3. Port flushes and aspirates very well with a 10 mL syringe. No pneumothorax. IR/IR cvc insert tunnel w prt/plating equipment tender IMPRESSION: Placement of a 6.6 Bolivian single-lumen power port. PLAN: - The patient will be discharged home when stable by sedation protocol. - Port may be used immediately. This procedure was performed by Cruz Maciel NP, and directly supervised by Kalpesh Montero MD Electronically signed by: Kalpesh Montero MD 12/23/2024 12:39 PM EDT Workstation: [id number]
[2024-12-15 12:20] LABS: Glucose, Whole Blood 166 mg/dL (60-115)
[2024-12-15 12:39] LABS: INTERNATIONAL NORM RATIO 0.9 (0.9-1.1); Prothrombin Time 10.2 SEC (10.9-12.4)
[2024-12-15] MEDS: ceFAZolin Sodium/Dextrose,Iso 2 GM/50 ML PIGGYBACK IV (13:10)
[2024-12-15] MEDS: Midazolam HCl 2 MG/2 ML VIAL 1 MG IVPUSH ×2 (14:20→14:53)
[2024-12-15] MEDS: fentaNYL citrate/PF 100 MCG/2 ML VIAL 50 MCG IVPUSH ×2 (14:20→14:50)
== END 2024-12-15 16:18 | disposition home or self-care (01) ==
PROVIDERS: Radiology Diagnostic Radiology; Radiology Vascular & Interventional Radiology; PCP Nurse Practitioner Acute Care; Visit Provider Internal Medicine Medical Oncology
DX: Z45.2 Encounter for adjustment and management of vascular access device (principal); D80.1 Nonfamilial hypogammaglobulinemia; D47.2 Monoclonal gammopathy; G35 Multiple sclerosis; M89.8X0 Other specified disorders of bone, multiple sites; E11.9 Type 2 diabetes mellitus without complications; E06.3 Autoimmune thyroiditis; J84.10 Pulmonary fibrosis, unspecified; J45.909 Unspecified asthma, uncomplicated; M32.9 Systemic lupus erythematosus, unspecified; R10.13 Epigastric pain; G47.33 Obstructive sleep apnea (adult) (pediatric); Z80.41 Family history of malignant neoplasm of ovary; Z80.8 Family history of malignant neoplasm of other organs or systems; Z79.84 Long term (current) use of oral hypoglycemic drugs; Z79.85 Long-term (current) use of injectable non-insulin antidiabetic drugs; Z99.81 Dependence on supplemental oxygen; Z79.620 Long term (current) use of immunosuppressive biologic; Z79.899 Other long term (current) drug therapy; Z99.89 Dependence on other enabling machines and devices; Z79.51 Long term (current) use of inhaled steroids; Z88.8 Allergy status to other drugs, medicaments and biological substances; Z91.041 Radiographic dye allergy status; Z87.891 Personal history of nicotine dependence
CPT/HCPCS: 36415; 36561; 82947; 85610; 99152; 99153; C1769; C1788; J0690; J1642; J1644; J2003; J2250; J3010

== ENCOUNTER → 2024-12-15 14:00 | Outpatient (BNV) | payer MEDICARE, BC, SELFPAY | PROVIDERS: PCP Nurse Practitioner Acute Care | DX: Z45.2 Encounter for adjustment and management of vascular access device (principal); D80.1 Nonfamilial hypogammaglobulinemia | CPT/HCPCS: 36561; 76937 ==

== ENCOUNTER 2024-12-23 14:32 | Outpatient (AMB) | payer MEDICARE, BC, SELFPAY ==
--- NOTE | 2024-12-23 14:37 | MHC.OFFVIS ---
Vital Signs 12/23/24 14:38 Height 5 ft 6 in Weight 251 lb 5.231 oz BMI 40.6 BP 130/68 Blood Pressure Location Lt brachial Position Sitting Pulse 72 Pulse Source Pulse Oximeter Intake Visit Reasons: fu CTA [facility] Allergies denosumab [From Prolia] Allergy (Intermediate, Verified 10/22/24 11:03) Muscle Pain rofecoxib [From Vioxx] Allergy (Verified 10/22/24 11:03) Unknown Weqqgqh-VBE-JzT Reductase Inhibitor Allergy (Verified 10/22/24 11:03) Muscle cramps Iodinated Contrast Media Adverse Reaction (Intermediate, Unverified 10/22/24 11:03) Unknown Medication List - Last Reconciled 12/23/24 by Antonio Alberto MD fglbteboap-sddgriprpplel-fcvx 50-325-40 mg 1 tab PO Q6H PRN cetirizine (Zyrtec) 10 mg PO DAILY PRN diphenhydramine HCl 50 mg PO ONCE doxycycline monohydrate 100 mg PO BID 30 days fluticasone propion-salmeterol 250-50 mcg/dose (Wixela Inhub) 1 ea inhalation BID fluticasone propionate 50 mcg/actuation 1 spray intranasal Q12H hydroxychloroquine 200 mg PO BID immun glob G(IgG)-gly-IgA ov50 10 % (Gammagard Liquid) 20 grams IV Q3W immun glob G(IgG)-gly-IgA ov50 10 % (Gammagard Liquid) 20 grams IV Q3W levalbuterol tartrate 45 mcg/actuation 1 - 2 puffs inhalation Q4H PRN 30 days levothyroxine (Synthroid) 175 mcg PO DAILY lifitegrast 5% (Xiidra) 1 drp ophthalmic (eye) BID losartan 25 mg PO DAILY metformin ER 500 mg PO DAILY metoprolol tartrate 50 mg PO ONCE nebulizers As directed nystatin 1,000,000 units (2 x 500,000 unit) PO QID 10 days nystatin 1 appl topical BID 14 days omeprazole 20 mg PO TID prednisone 40 mg (2 x 20 mg) PO BID sodium chloride 3% 3 mL inhalation BID tirzepatide (Mounjaro) 5 mg subcut QWEEK HPI Comments Details: Naheed returns for follow-up. Recently seen in consultation regarding chest pains. Previously seen at [facility]iology. Many comorbidities including diabetes, hypertension, Nelia's thyroiditis, lupus, hypokalemia global anemia, fibromyalgia, migraine, restrictive lung disease among others. She states she has had COVID multiple times. Over the last couple of years or so, she gets frequent chest pains. This can happen any time but she notices them with exertion as well. Some radiation to the neck area. Additionally, she states she has got pulmonary fibrosis and she apparently thought that was causing chest pains. 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 Otherwise, she also has a history of supraventricular/ventricular ectopy for which she takes beta-blockers. Since last seen, she has completed a coronary CTA. Of note, she has not really had any further chest pain since last seen. [facility] Medical History (Updated 11/23/24 @ 11:37 by Stefani Cunningham MD) Abnormal finding on EKG MAURO treated with BiPAP Hypogammaglobulinemia Asthma Lupus Pneumonitis Pulmonary fibrosis Family History Maternal Aunt Brain abscess Bone cancer Maternal Aunt Lung cancer Melanoma Maternal Uncle Melanoma Bone cancer Lung cancer Mother Thyroid cancer Uterine cancer Social History Household Members: Spouse Alcohol intake: current Alcohol intake frequency: does not drink Patient Tobacco Use Status: Former Tobacco user Tobacco use type: Cigarette Years Smoked: 20 Years service: No Current occupational status: retired Review of Systems Const Denies weakness ENT Denies dizziness Card Denies chest pain, Denies chest pain with activity, Denies syncope, Denies rapid heart rate, Denies pedal edema, Denies edema, Denies leg edema, Denies lightheadedness, Denies palpitations, Denies dyspnea, Denies dyspnea on exertion and Denies orthopnea Resp Denies cough, Denies dyspnea and Denies dyspnea on exertion GI Denies hematochezia and Denies change in stool character Musc Denies abnormal gait, Denies muscle cramps, Denies muscle weakness, Denies numbness, Denies radiating pain into limb and Denies tingling Neuro Denies abnormal gait, Denies dizziness, Denies syncope, Denies numbness, Denies tingling and Denies weakness Endo Denies palpitations Physical Exam Vital Signs: Last Vital Signs Pulse 72 04/09/25 14:38 BP 130/68 12/23/24 14:38 BMI result Body Mass Index 40.6 Const General: comfortable and no acute distress Orientation/consciousness: patient oriented x3 HEENT Other: Unremarkable Head: Yes normal to inspection Neck Neck: Yes normal visual inspection Chest Chest palpation & inspection: normal inspection of the chest Resp Auscultation: clear to auscultation bilaterally Cardio Palpation: normal PMI Heart sounds: S1 normal heart sound present, S2 normal heart sound present, no gallops, no murmurs and no rubs GI Palpation (GI): Soft to palpation Back/Spine/Pelvis Other: unremarkable Skin General skin exam: no rashes or lesions noted Neuro General: patient oriented x3 Extrem General: Yes normal to inspection Psych Mental Status: mental status grossly normal Assessment & Plan Assessment & Plan (1) Precordial chest pain: Code(s): R07.2 - Precordial pain Category: Medical Plan Cardiac studies reviewed. In the recent EKG, underlying rhythm is sinus at 81/Min; cannot exclude old anterior infarct could also be from body habitus; nonspecific changes; normal WI/corrected QT. It does appear changed compared to the last EKG but could all be from lead positioning. Prior stress perfusion imaging from 2020 reported to have no significant reversible defects. Fixed defect in the apical/distal inferior/inferolateral campos thought to be artifactual and less likely infarct. Echocardiogram with LVEF of 66%. Moderate left ventricle hypertrophy but otherwise unremarkable. Coronary CTA from 12/2024-image quality reduced due to body habitus. However, no definitive obstructive coronary disease. Based on the above, her chest pains are most likely noncardiac in nature. No specific treatment necessary. She will call us as needed for future concerns. Coding Level of Care Code Est Pt Level 3 (98439) Diagnoses Precordial chest pain R07.2
[2024-12-23 14:38] VITALS: BP 130/68; PULSE 72; BMI 40.6
--- OUTSIDE RECORDS SUMMARY | 2024-12-23 16:46 | XMS_ITS | Patient Health Record ---
[facility] Address [address] [place] [address] Care Team Providers Care Pearl Maker Name Role Phone Yashira THOMAS, Shawna Primary Care Provider Steph Dotson Unavailable [phone] Allergies Allergen (clinical drug ingredient) Drug/Non Drug Allergy documented on EMR Reaction Allergy Type Onset Date Status Adhesive Unknown Allergy Active Shellfish (FN) Shellfish-derived Products Unknown Drug Allergy Active Substance with 2-zdzsjxk-2-methylgluta ryl-coenzyme A reductase inhibitor mechanism of action [...] Problem Acquired hammer toe of right foot (3813087653489646 ) Other hammer toe(s) (acquired), right foot (M20.41) Active confirmed Problem Acquired hammer toe of left foot (7118882838202844 ) Other hammer toe(s) (acquired), left foot (M20.42) Active confirmed Problem Polyneuropathy due to type 2 diabetes mellitus (809200441) Type 2 diabetes mellitus with diabetic polyneuropathy (E11.42) Active confirmed Plan Of Treatment Pending Test Test Name Order Date [id number] NAIL, 6 OR MORE 09/27/2020 [id number] NAIL, 1-5 11/29/2020 [id number]-Vlbexpho Plate 09/27/2020 [id number]-JHYZ SKIN LESIONS, OVER 4 09/27/19 21 93713-DYTI SKIN LESIONS, OVER 4 11/30/19 21 [id number]-EDLIKUTT DYSTROPHIC NAILS ANY # Insurance Providers Payer Name Payer Address Payer Phone Subscriber Number Group Number Insured Name Patient Relationship to Insured Coverage Start Date Coverage End Date Medicare [employer] [address] [place] [address] [id number] Naheed Luna Self - patient is the insured [facility] [address] [place] [address] [id number] Naheed Luna Self - patient is the [...] Surgery Date(Month/Year) tonsillectomy and adenoidectomy 1962 D&C 9838-8984 hysterectomy 1978 oopherectomy 1978 appendectomy 1978 cholecystectomy 1979 disc surgeryC-5,C-6,SI,L5 S-1 Vplate ant erior 2002,2006,2008 carpal tunnel surgery 2003,2005 Hospitalization History Reason Date(Month/Year) [facility] hypokalemia, hypo magnesemia, thyroi d toxicosis 09/2020
--- OUTSIDE RECORDS SUMMARY | 2024-12-23 16:47 | XMS_ITS | Clinical Summary ---
Author Organization [facility] Address [address] [place] [address] Care Team Providers Care Clinical Science Liaison Name Role Phone Shawna Ac MD Primary Care Provider [phone] Allergies Active Allergy Reactions Criticality Noted Date [...] age to complete this topic Care Teams Clinical Science Liaison Relationship Specialty Start Date End Date Shawna Ac MD [address] [place] [address] PCP - General Family Medicine 01/19/22
--- OUTSIDE RECORDS SUMMARY | 2024-12-23 16:47 | XMS_ITS ---
Author Organization [facility] Address [address] [place] [address] Care Team Providers Care Hydrometeorologist Name Role Phone SHARAN JONES Unavailable [phone] RED BUTTS Unavailable [phone] Encounters Encounter Location Date Provider Diagnosis [address] [place] [address] 11/04/2024 RED BUTTS PLAN OF TREATMENT Next Appt Details Provider Name:RED BUTTS, 02/15/2025 11:00:00 AM, [address], [address], [place], [address], Progress Notes * JB ARGUELLO ADOB: [birth year] (69 yo F)Acc No.[id number]:11/04/2024 Progress Notes Patient:??JB ARGUELLO Provider:??RED BUTTS NP :1955?Age:69 Y?Sex:Fe male Date:11/04/2024 Address:[id number] Subjective: * Chief Complaints: * ? * Medical History:?? Objective: Assessment: Plan: * Treatment: * Images: Billing Information: * Visit Code:?? * Procedure Codes:?? Care Plan Details* * Sign off status: Pending * Provider:??RED BUTTS NP Date:??10/17
--- OUTSIDE RECORDS SUMMARY | 2024-12-23 16:47 | XMS_ITS ---
Author Organization [facility] Address [address] [facility] [place] [address] Care Team Providers Care Roastmaster Name Role Phone SHARAN JONES Unavailable [phone] SHANNONRED Nevarez Unavailable [phone] ALLERGIES Allergen (clinical drug ingredient) Drug/Non Drug Allergy documented on EMR Reaction Allergy Type Onset Date Status Substance with 5-uquuzza-0-methylgl utaryl-coenzyme A reductase inhibitor mechanism of action (substance) statins (uncoded) Unknown Allergy Active denosumab Prolia stomach upset Drug Allergy Act jere azithromycin Azithromycin Unknown Drug Allergy A ctive ciprofloxacin Ciprofloxacin Unknown Drug Allergy Active REASON FOR VISIT Pt here for f/u appt. MEDICATIONS Medication SIG (Take, Route, Frequency, Duration) Notes Start Date End Date Status Multi Vitamin - 1 tablet Orally Once a day Not-Taking predniSONE 20 MG 1 tablet Orally Once a day Not-Taking Probiotic - as directed Orally Not-Taking Mycophenolate Mofetil 500 MG TAKE 1 TABLET TWICE A DAY Oral for 90 Days Not-Taking Hydroxychloroquine Sulfate 200 MG TAKE 1 TABLET TWICE A DAY Oral for 90 Days Not-Taking Vitamin D 25 MCG (1000 UT) 1 tablet Orally Once a day Not-Taking Vitamin C 1000 MG 1 tablet Orally Once a day Not-Taking Magnesium 400 MG as directed Orally Not-Taking Berberine Complex No t-Taking Zinc 100 MG 1 tablet Orally Once a day Not-Taking traMADol HCl 50 MG 1 tablet as needed for pain Orally every 6 hours for 30 days 10/23/2024 Active Calcium 500 MG 1 tablet with meals Orally Twice a day Not-Taking CoQ-10 100 MG as directed Orally Not-Taking Synthroid 175 MCG TAKE 1 TABLET EVERY MORNINGON AN EMPTY STOMACH for 90 Active Mounjaro 5 MG/0.5ML INJECT 5 MG (0.5 ML) UNDER THE SKIN ONCE WEEKLY for 28 Active Fioricet 50-300-40 MG 1 capsule as needed Orally once a day for 90 days Active Plaquenil 200 MG 1 tablet Orally daily Active metFORMIN HCl ER 500 MG 1 tablet with evening meal Orally Once a day for 90 days 08/04/2024 Active Losartan Potassium 25 MG 1 tablet Orally Once a day for 90 days Active Mucinex 600 MG 1 tablet as needed Orally every 12 hrs Active Mounjaro 2.5 MG/0.5ML 2.5mg Subcutaneous weekly for 28 days Active Synthroid 175 MCG 1 tablet in the morning on an empty stomach Orally Once a day for 90 days Active Nystatin 892612 UNIT/GM 1 application Externally Twice a day for 30 days 08/21/2023 Active Ondansetron HCl 4 MG 1 tablet as needed for nausea Orally every 12 hours for 30 days 11/28/2023 Active Synthroid 200 MCG TAKE 1 TABLET ONCE DAILY INTHE MORNING ON AN EMPTY STOMACH for 90 Active Advair HFA 230-21 MCG/ACT 2 puffs Inhala tion Twice a day prn Active Fluticasone Furoate 50 MCG/ACT 1 puff Inhalation Once a day Active ZyrTEC Allergy 10 MG 1 tablet Orally Once a day Active Levalbuterol Tartrate 45 MCG/ACT 1-2 puffs as needed Inhalation every 4 hrs for 30 days Active Diflucan 150 MG 1 tablet Orally once weekly for 84 days 03/02/2024 Active Sodium Chloride 3 % 4 mL Inhalation Twice a day Active Ipratropium-Albuterol 0.5-2.5 (3) MG/3ML 3 ml as needed Inhalation every 6 hrs Active Journavx 50 MG 50mg Orally every 12 hours for 30 days 12/11/2024 Active amLODIPine Besylate 10 MG TAKE 1 TABLET ONCE DAILY for 90 Not-Taking Doxycycline 100mg 1x daily Active Miconazole Nitrate 2 % 1 application Externally Twice a day for 30 days 07/08/2024 Not-Taking Naltrex 4.5 MG as directed Orally Not-Taking Miconazole Antifungal 2 % 1 application Externally Twice a day for 30 days 07/08/2024 Not-Taking Levothyroxine Sodium 175 MCG 1 tablet in the morning on an empty stomach Orally every other day for 90 days 09/03/2024 Not-Taking SOCIAL HISTORY Tobacco Use: Social History Observation Description Date Details (start date - stop date) Former Smoker NA - NA Sex Assigned At : Social History Observation Description Sex Assigned At Unknown Tobacco Use/Smoking Question Answer Notes Are you a former smoker VITAL SIGNS Blood pressure systolic 120 mm Hg 12/12/19 25 Blood pressure diastolic 78 mm Hg 025 Heart Rate 80 /min 12/11/2024 Height 66 in 12/11/2024 Weight 250 lbs 12/11/2024 BMI 40.35 kg/m2 12/11/2024 Oximetry 98 % 12/11/2024 Encounters Encounter Location Date Provider Diagnosis [facility] [address] [facility] [address] [place] [address] 12/11/2024 RED BUTTS Atypical chest pain R07.89 ; Acquired hypothyroidism E03.9 ; Bilateral lower extremity edema R60.0 ; Chronic venous insufficiency I87.2 ; Abnormal metabolic state due to diabetes mellitus E11.9 ; Pulmonary fibrosis J84.10 ; Hypothyroidism, unspecified E03.9 and Chronic pain syndrome G89.4 ASSESSMENTS Encounter Date Diagnosis Assessment Notes Treatment Notes Treatment Clinical Notes Section Notes 12/11/2024 Atypical chest pain (ICD-10 - R07.89) Acute Concerns/Problem List: 12/11/2024 Increase Mounjaro to 7.5 mg Good glycemic improvement, 9.1 down to 7.6 today Continue 175 mcg of Synthroid _update comprehensive labs and Medicare visit in February Start dronabinol for chronic pain Please follow-up with all of your subspecialists We did refer to vascular surgery Echocardiogram to assess wall motion Of note, some information is being carried forward from prior records for informational purposes only and is being cited so that efficiency, safety and quality of the patient's care is not compromised This note was prepared using voice recognition software and direct typing Please excuse inadvertent geoscience professor or typing errors, or uncorrected word substitutions Although every attempt has been made by the provider to proofread this document, occasional misspellings and typographical errors may still be present Due to the previous pandemic, and the use of personal protective equipment (PPE) This may decrease voice recognition accuracy Inadvertent geoscience professor errors may occur 12/11/2024 Acquired hypothyroidism (ICD-10 - E03.9) Acute Concerns/Problem List: 12/11/2024 Increase Mounjaro to 7.5 mg Good glycemic improvement, 9.1 down to 7.6 today Continue 175 mcg of Synthroid _update comprehensive labs and Medicare visit in February dronabinol for chronic pain Please follow-up with all of your subspecialists We did refer to vascular surgery Echocardiogram to assess wall motion Of note, some information is being carried forward from prior records for informational purposes only and is being cited so that efficiency, safety and quality of the patient's care is not compromised This note was prepared using voice recognition software and direct typing Please excuse inadvertent geoscience professor or typing errors, or uncorrected word substitutions Although every attempt has been made by the provider to proofread this document, occasional misspellings and typographical errors may still be present Due to the previous pandemic, and the use of personal protective equipment (PPE) This may decrease voice recognition accuracy Inadvertent geoscience professor errors may occur 12/11/2024 Bilateral lower extremity edema (ICD-10 - R60.0) Acute Concerns/Problem List: 12/11/2024 Increase Mounjaro to 7.5 mg Good glycemic improvement, 9.1 down to 7.6 today Continue 175 mcg of Synthroid _update comprehensive labs and Medicare visit in February dronabinol for chronic pain Please follow-up with all of your subspecialists We did refer to vascular surgery Echocardiogram to assess wall motion Of note, some information is being carried forward from prior records for informational purposes only and is being cited so that efficiency, safety and quality of the patient's care is not compromised This note was prepared using voice recognition software and direct typing Please excuse inadvertent geoscience professor or typing errors, or uncorrected word substitutions Although every attempt has been made by the provider to proofread this document, occasional misspellings and typographical errors may still be present Due to the previous pandemic, and the use of personal protective equipment (PPE) This may decrease voice recognition accuracy Inadvertent geoscience professor errors may occur 12/11/2024 Chronic venous insufficiency (ICD-10 - I87.2) Acute Concerns/Problem List: 12/11/2024 Increase Mounjaro to 7.5 mg Good glycemic improvement, 9.1 down to 7.6 today Continue 175 mcg of Synthroid _update comprehensive labs and Medicare visit in February dronabinol for chronic pain Please follow-up with all of your subspecialists We did refer to vascular surgery Echocardiogram to assess wall motion Of note, some information is being carried forward from prior records for informational purposes only and is being cited so that efficiency, safety and quality of the patient's care is not compromised This note was prepared using voice recognition software and direct typing Please excuse inadvertent geoscience professor or typing errors, or uncorrected word substitutions Although every attempt has been made by the provider to proofread this document, occasional misspellings and typographical errors may still be present Due to the previous pandemic, and the use of personal protective equipment (PPE) This may decrease voice recognition accuracy Inadvertent geoscience professor errors may occur 12/11/2024 Abnormal metabolic state due to diabetes mellitus (ICD-10 - E11.9) Acute Concerns/Problem List: 12/11/2024 Increase Mounjaro to 7.5 mg Good glycemic improvement, 9.1 down to 7.6 today Continue 175 mcg of Synthroid _update comprehensive labs and Medicare visit in February dronabinol for chronic pain Please follow-up with all of your subspecialists We did refer to vascular surgery Echocardiogram to assess wall motion Of note, some information is being carried forward from prior records for informational purposes only and is being cited so that efficiency, safety and quality of the patient's care is not compromised This note was prepared using voice recognition software and direct typing Please excuse inadvertent geoscience professor or typing errors, or uncorrected word substitutions Although every attempt has been made by the provider to proofread this document, occasional misspellings and typographical errors may still be present Due to the previous pandemic, and the use of personal protective equipment (PPE) This may decrease voice recognition accuracy Inadvertent geoscience professor errors may occur 12/11/2024 Pulmonary fibrosis (ICD-10 - J84.10) Acute Concerns/Problem List: 12/11/2024 Increase Mounjaro to 7.5 mg Good glycemic improvement, 9.1 down to 7.6 today Continue 175 mcg of Synthroid _update comprehensive labs and Medicare visit in February Start dronabinol for chronic pain Please follow-up with all of your subspecialists We did refer to vascular surgery Echocardiogram to assess wall motion Of note, some information is being carried forward from prior records for informational purposes only and is being cited so that efficiency, safety and quality of the patient's care is not compromised This note was prepared using voice recognition software and direct typing Please excuse inadvertent geoscience professor or typing errors, or uncorrected word substitutions Although every attempt has been made by the provider to proofread this document, occasional misspellings and typographical errors may still be present Due to the previous pandemic, and the use of personal protective equipment (PPE) This may decrease voice recognition accuracy Inadvertent geoscience professor errors may occur 12/11/2024 Hypothyroidism, unspecified (ICD-10 - E03.9) Acute Concerns/Problem List: 12/11/2024 Increase Mounjaro to 7.5 mg Good glycemic improvement, 9.1 down to 7.6 today Continue 175 mcg of Synthroid _update comprehensive labs and Medicare visit in February dronabinol for chronic pain Please follow-up with all of your subspecialists We did refer to vascular surgery Echocardiogram to assess wall motion Of note, some information is being carried forward from prior records for informational purposes only and is being cited so that efficiency, safety and quality of the patient's care is not compromised This note was prepared using voice recognition software and direct typing Please excuse inadvertent geoscience professor or typing errors, or uncorrected word substitutions Although every attempt has been made by the provider to proofread this document, occasional misspellings and typographical errors may still be present Due to the previous pandemic, and the use of personal protective equipment (PPE) This may decrease voice recognition accuracy Inadvertent geoscience professor errors may occur 12/11/2024 Chronic pain syndrome (ICD-10 - G89.4) Acute Concerns/Problem List: 12/11/2024 Increase Mounjaro to 7.5 mg Good glycemic improvement, 9.1 down to 7.6 today Continue 175 mcg of Synthroid _update comprehensive labs and Medicare visit in February dronabinol for chronic pain Please follow-up with all of your subspecialists We did refer to vascular surgery Echocardiogram to assess wall motion Of note, some information is being carried forward from prior records for informational purposes only and is being cited so that efficiency, safety and quality of the patient's care is not compromised This note was prepared using voice recognition software and direct typing Please excuse inadvertent geoscience professor or typing errors, or uncorrected word substitutions Although every attempt has been made by the provider to proofread this document, occasional misspellings and typographical errors may still be present Due to the previous pandemic, and the use of personal protective equipment (PPE) This may decrease voice recognition accuracy Inadvertent geoscience professor errors may occur PLAN OF TREATMENT Medication Medication Name Sig Start Date Stop Date Notes Mounjaro 2.5 MG/0.5ML 2.5mg Subcutaneous weekly for 28 days Synthroid 175 MCG 1 tablet in the morn ing on an empty stomach Orally Once a day for 90 days Journavx 50 MG 50mg Orally every 12 hours for 30 days 12/11/2024 Pending Test Test Name Order Date LIPID PANEL, STANDARD 12/11/2024 COMPREHENSIVE METABOLIC PANEL 12/11/2024 CBC (INCLUDES DIFF/PLT) 12/11/2024 URINALYSIS, COMPLETE 12/11/2024 HEMOGLOBIN A1c 12/11/2024 T4 (THYROXINE), TOTAL 12/11/2024 TSH W/REFLEX TO FT4 12/11/2024 VITAMIN D,25-OH,TOTAL,IA 12/11/2024 Next Appt Details Provider Name:RED BUTTS, 02/15/2025 11:00:00 AM, [address] [place] [address], [facility] [address], [place], [address], Procedure Notes * Category Sub-Category Detail Notes POC Hemoglobin A1C in office A1C 7.6 Progress Notes * JB ARGUELLO ADOB: [birth year] (69 yo F)Acc No.[id number]:12/11/2024 Progress Notes Patient:??JB ARGUELLO Provider:??RED BUTTS NP :1955?Age:69 Y?Sex:Fe male Date:12/11/2024 Address:[address] [place], [place] [id number] Subjective: * Chief Complaints: * ?1. Pt here for f/u reji t.. * HPI: ?Constitutional:? Patient is here for Chronic Disease Management follow-up visit ?Patient seen and examined. ? Full past medical history, social history, family history, ?allergies and current medications were reviewed and updated. ?Acute Concerns/Problem List: ?12/11/2024 ?Medically complex patient ?very well informed ?Currently compliant with auto CPAP nightly ?was managed by pulmonology @ [facility], now with [facility] ?PFT's 2023, normal spirometry and diffusion capacity measurements ?FEV1 is 102% predicted, FVC is normal at 2.85 L or 96% of predicted ?Normal FEV1 to FVC ratio 83% ?History of abnormal EKGs and ventricular PVCs ?History of hypertension ?Her hypothyroidism and diabetes are no longer being managed by endocrinology ?She takes Synthroid 175 mcg, Chemically euthyroid, thyroid labs below ? on Mounjaro 5mg ?Injects Tuesdays ?currently on metformin 500 mg ER ?Hemoglobin A1c today in office is much improved at 7.6 down from 9.1 ?Interested in increasing to 7.5 ?She has chronic venous insufficiency she should have reflux studies and HARPREET ?Also has a history of monoclonal gammopathy of unknown significance, (MGUS) ? hypogammaglobulinemia, ? followed by [facility]/onc ?scheduled for IVIG infusions, as Benlysta alternating weeks for SLE ?She underwent pulmonary function studies which showed ?normal spirometry and diffusion capacity in September 2023, [employer] Architect Dr. Bliss ?History of pulmonary fibrosis ?Also history of cerebral aneurysm, osteoarthritis and ?degenerative arthritis, SLE ?Domestic Housekeeper is Dr. Traore, on methylprednisolone, no longer on cellcept ?now on IVIG ?Also sees urology for history of nephrolithiasis ?Recently seen for hospital follow-up visit ?Presented with chest pain as well as lower extremity edema ?As well as 8 pound weight gain in the last 2 weeks ?Comprehensive workup including unremarkable troponin cardiac enzymes x 2 sets ?Urinalysis was unremarkable ?Chest x-ray did not show any CHF or pulmonary vascular congestion ?No concerning changes on the EKG ?Lower extremity duplex ultrasound bilaterally will negative for VTE ?They recommended using compression stockings as well as Lasix ?She was discharged on Lasix 40 mg daily for 7 days ?She is on metoprolol succinate 50 mg daily, Losartan 25mg ?sees [facility] ?Prior Cardiac Work-Up: ?- Echo (01/06/2022): Poor apical imaging. Probably preserved LVEF. ?LV normal in size with moderately increased wall thickness. ?Poorly visualized RV. No obvious valvular abnormalities. ?- 24-hour Holter (10/2021): Predominantly sinus rhythm. Average heart rate 72 bpm. ? Minimum heart rate 55 bpm. 138 beats of ventricular ectopy. ?174 beats of supraventricular ectopy. ?- Pharmacological nuclear stress test (09/18/2020): ? No ischemic EKG changes with pharmacological stress. ?Received aminophylline for shortness of breath. ? Nuclear imaging without significant reversible defect. ?Mild fixed defect in the apical and distal inferior and inferolateral wall, likely an artifact. ?LVEF normal at rest and with regadenoson. ?Comprehensive labs September 2024 ?T4, 10.6 ?TSH 6.05 ?Hemoglobin A1c of 9.1 ?Health maintenance ?Mammography, defers, last screened 2022, risks/reba disc ?Colorectal screening, GI [facility], sees regularly, not due ?Flu 2023, defers ?COVID mRNA x 0, defers ?RSV not interested. * ROS:?All Other Systems:?Review of Systems (ROS)??All others negative except those mentioned in HPI.? * Medical History:??Hypothyroi dism, Asthma, Lupus, Anemia, Brain anuerysm, Pulmonary fibrosis, Osteoporosis. * Surgical History:??carpal tu nnel release , colonoscopy 3 years , hysterectomy 1978 , gallbladder 1979 . * Hospitalization/Major Diagno stic Procedure:??COVID 2020, C- BLE edema, 2023. * Family History:??Father: dec eased, diagnosed with Diabetes mellitus without mention of complication, type II or unspecified type, not stated as uncontrolled.??Mother: , diagnosed with Other malignant neoplasm of unspecified site.?? * Social History:?Tobacco Use:??Tobacco Use/Smoking??Are you a??former smoker.?? * Medications:??Taking Mounjar o 2.5 MG/0.5ML Solution Auto-injector 2.5mg Subcutaneous weekly , Taking Doxycycline , Notes to Pharmacist: 100mg 1x daily, Taking Sodium Chloride 3 % Nebulization Solution 4 mL Inhalation Twice a day , Taking Ipratropium-Albuterol 0.5-2.5 (3) MG/3ML Solution 3 ml as needed Inhalation every 6 hrs , Taking ZyrTEC Allergy 10 MG Tablet 1 tablet Orally Once a day , Taking Advair HFA 230-21 MCG/ACT Aerosol 2 puffs Inhalation Twice a day , Notes to Pharmacist: prn, Taking Fluticasone Furoate 50 MCG/ACT Aerosol Powder Breath Activated 1 puff Inhalation Once a day , Taking Levalbuterol Tartrate 45 MCG/ACT Aerosol 1-2 puffs as needed Inhalation every 4 hrs , Taking Diflucan 150 MG Tablet 1 tablet Orally once weekly , Taking Nystatin 722515 UNIT/GM Ointment 1 application Externally Twice a day , Taking Ondansetron HCl 4 MG Tablet 1 tablet as needed for nausea Orally every 12 hours , Taking Synthroid 200 MCG Tablet TAKE 1 TABLET ONCE DAILY INTHE MORNING ON AN EMPTY STOMACH , Taking Fioricet 50-300-40 MG Capsule 1 capsule as needed Orally once a day , Taking Plaquenil 200 MG Tablet 1 tablet Orally daily , Taking Losartan Potassium 25 MG Tablet 1 tablet Orally Once a day , Taking Mucinex 600 MG Tablet Extended Release 12 Hour 1 tablet as needed Orally every 12 hrs , Taking metFORMIN HCl ER 500 MG Tablet Extended Release 24 Hour 1 tablet with evening meal Orally Once a day , Taking traMADol HCl 50 MG Tablet 1 tablet as needed for pain Orally every 6 hours , Taking Synthroid 175 MCG Tablet TAKE 1 TABLET EVERY MORNINGON AN EMPTY STOMACH , Taking Mounjaro 5 MG/0.5ML Solution Auto-injector INJECT 5 MG (0.5 ML) UNDER THE SKIN ONCE WEEKLY , Not-Taking Calcium 500 MG Tablet 1 tablet with meals Orally Twice a day , Not-Taking CoQ-10 100 MG Capsule as directed Orally , Not- Taking Berberine Complex , Not-Taking Zinc 100 MG Tablet 1 tablet Orally Once a day , Not-Taking Vitamin C 1000 MG Tablet 1 tablet Orally Once a day , Not-Taking Magnesium 400 MG Capsule as directed Orally , Not-Taking Vitamin D 25 MCG (1000 UT) Tablet 1 tablet Orally Once a day , Not-Taking Probiotic - Tablet Delayed Release as directed Orally , Not-Taking Multi Vitamin - Tablet 1 tablet Orally Once a day , Not- Taking predniSONE 20 MG Tablet 1 tablet Orally Once a day since being in ED on saturday, Not-Taking Mycophenolate Mofetil 500 MG Tablet TAKE 1 TABLET TWICE A DAY Oral , Not-Taking Hydroxychloroquine Sulfate 200 MG Tablet TAKE 1 TABLET TWICE A DAY Oral , Not-Taking Miconazole Nitrate 2 % Powder 1 application Externally Twice a day , Not-Taking Miconazole Antifungal 2 % Cream 1 application Externally Twice a day , Not-Taking Levothyroxine Sodium 175 MCG Tablet 1 tablet in the morning on an empty stomach Orally every other day , Not-Taking Naltrex 4.5 MG Capsule as directed Orally , Not-Taking amLODIPine Besylate 10 MG Tablet TAKE 1 TABLET ONCE DAILY , Medication List reviewed and reconciled with the patient * Allergies:??statins, Prolia: stomach upset - Side Effects - Criticality Low, Azithromycin, Ciprofloxacin. Objective: * Vitals:??HR:80/min, BP:120/7 8mm Hg, Wt:250lbs, BMI:40.35Index, Ht: 66 in, Oxygen sat %:98%. * Examination: ?General Examination: ?GENERAL APPEARANCE:??in no acute distress, well developed, well nourished.??HEAD:??normocephalic, atraumatic.??EYES:??pupils equal, round, reactive to light and accommodation.??EARS:??normal.??ORAL CAVITY:??mucosa moist.??THROAT:??clear.??NECK/THYROID:??neck supple, full range of motion, no cervical lymphadenopathy.??SKIN:??no suspicious lesions, warm and dry.??HEART:??no murmurs, regular rate and rhythm, S1, S2 normal.??LUNGS:??clear to auscultation bilaterally.??ABDOMEN:??normal, bowel sounds present, soft, nontender, nondistended.??EXTREMITIES:??no clubbing, cyanosis, or edema.??NEUROLOGIC:??nonfocal, motor strength normal upper and lower extremities, sensory exam intact.? Assessment: * Assessment: 1.??Acquired hypothyroidism - E03.9 (Primary)??2.??Atypical chest pain - R07.89??3.??Bilateral lower extremity edema - R60.0??4.??Chronic venous insufficiency - I87.2??5.??Abnormal metabolic state due to diabetes mellitus - E11.9??6.??Pulmonary fibrosis - J84.10??7.??Hypothyroidism, unspecified - E03.9??8.??Chronic pain syndrome - G89.4?? Acute Concerns/Problem List: 12/11/2024 Increase Mounjaro to 7.5 mg Good glycemic improvement, 9.1 down to 7.6 today Continue 175 mcg of Synthroid _update comprehensive labs and Medicare visit in February Start dronabinol for chronic pain Please follow-up with all of your subspecialists We did refer to vascular surgery Echocardiogram to assess wall motion Of note, some information is being carried forward from prior records for informational purposes only and is being cited so that efficiency, safety and quality of the patient's care is not compromised This note was prepared using voice recognition software and direct typing Please excuse inadvertent geoscience professor or typing errors, or uncorrected word substitutions Although every attempt has been made by the provider to proofread this document, occasional misspellings and typographical errors may still be present Due to the previous pandemic, and the use of personal protective equipment (PPE) This may decrease voice recognition accuracy Inadvertent geoscience professor errors may occur. Plan: * Treatment: 2.??Abnormal metabolic state due to diabetes mellitus?LAB: HEMOGLOBIN A1c 3.??Hypothyroidism, unspecif ied?LAB: T4 (THYROXINE), TOTAL ?LAB: TSH W/REFLEX TO FT4 4.??Chronic pain syndrome?? Start Journavx Tablet, 50 MG, 50mg, Orally, every 12 hours, 30 days, 60 Tablet, Refills 1.? * Procedures:?POC Hemoglobin A1C:?in office A1C??7.6.? * Labs:?? * ?Lab: VITAMIN D,25- OH,TOTAL,IA ?Lab: URINALYSIS, C OMPLETE ?Lab: COMPREHENSIVE METABOLIC PANEL ?Lab: CBC (INCLUDES DIFF/PLT) ?Lab: LIPID PANEL, STANDARD * Procedure Codes:??34069 GLYC ATED HEMOGLOBIN TEST, Modifiers: QW * Images: Billing Information: * Visit Code:?? 26318 Office Visit, Est Pt., Level 4. Modifiers: 25, SA * Procedure Codes:?? 70394 GLYCATED HEMOGLOBIN TEST. Modifiers: QW Care Plan Details* * Sign off status: Completed true * Provider:??RED BUTTS NP Date:??11/15 History and Physical Notes * HPI (History of Present Illness) Category Sub-Category Detail Notes Category Not es Constitutional Patient is here for Chronic Disease Management follow-up visit Patient seen and examined. Full past medical history, social history, family history, allergies and current medications were reviewed and updated. Acute Concerns/Problem List: 12/11/2024 Medically complex patient very well informed Currently compliant with auto CPAP nightly was managed by pulmonology @ [facility], now with [facility] Pulmonology PFT's 2023, normal spirometry and diffusion capacity measurements FEV1 is 102% predicted, FVC is normal at 2.85 L or 96% of predicted Normal FEV1 to FVC ratio 83% History of abnormal EKGs and ventricular PVCs History of hypertension Her hypothyroidism and diabetes are no longer being managed by endocrinology She takes Synthroid 175 mcg, Chemically euthyroid, thyroid labs below on Mounjaro 5mg Injects Tuesdays currently on metformin 500 mg ER Hemoglobin A1c today in office is much improved at 7.6 down from 9.1 Interested in increasing to 7.5 She has chronic venous insufficiency she should have reflux studies and HARPREET Also has a history of monoclonal gammopathy of unknown significance, (MGUS) hypogammaglobulinemia, followed by Leeanne heme/onc scheduled for IVIG infusions, as Benlysta alternating weeks for SLE She underwent pulmonary function studies which showed normal spirometry and diffusion capacity in September 2023, Sap Fico Architect Dr. 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 Traore, on methylprednisolone, no longer on cellcept now on IVIG Also sees urology for history of nephrolithiasis Recently seen for hospital follow-up visit Presented with chest pain as well as lower extremity edema As well as 8 pound weight gain in the last 2 weeks Comprehensive workup including unremarkable troponin cardiac enzymes x 2 sets Urinalysis was unremarkable Chest x-ray did not show any CHF or pulmonary vascular congestion No concerning changes on the EKG Lower extremity duplex ultrasound bilaterally will negative for VTE They recommended using compression stockings as well as Lasix She was discharged on Lasix 40 mg daily for 7 days She is on metoprolol succinate 50 mg daily, Losartan 25mg sees [facility] Prior Cardiac Work-Up: - Echo (01/06/2022): Poor apical imaging. Probably preserved LVEF. LV normal in size with moderately increased wall thickness. Poorly visualized RV. No obvious valvular abnormalities. - 24-hour Holter (10/2021): Predominantly sinus rhythm. Average heart rate 72 bpm. Minimum heart rate 55 bpm. 138 beats of ventricular ectopy. 174 beats of supraventricular ectopy. - Pharmacological nuclear stress test (09/18/2020): No ischemic EKG changes with pharmacological stress. Received aminophylline for shortness of breath. Nuclear imaging without significant reversible defect. Mild fixed defect in the apical and distal inferior and inferolateral wall, likely an artifact. LVEF normal at rest and with regadenoson. Comprehensive labs September 2024 T4, 10.6 TSH 6.05 Hemoglobin A1c of 9.1 Health maintenance Mammography, defers, last screened 2022, risks/reba disc Colorectal screening, GI Chuy, sees regularly, not due Flu 2023, defers COVID mRNA x 0, defers RSV not interested Examination Category Sub-Category Detail Notes Category Not es General Examination GENERAL APPEARANCE: in no ac [place] distress, well developed, well nourished HEAD: normocephalic, atrau matic EYES: pupils equal, round, reactive to light and accommodation EARS: normal THROAT: clear NECK/THYROID: neck supple, full ra nge of motion, no cervical lymphadenopathy HEART: no murmurs, regular rate and rhythm, S1, S2 normal LUNGS: clear to auscultatio n bilaterally ABDOMEN: normal, bowel sounds present, soft, nontender, nondistended NEUROLOGIC: nonfocal, motor stre ngth normal upper and lower extremities, sensory exam intact SKIN: no suspicious lesion s, warm and dry EXTREMITIES: no clubbing, cyanosi s, or edema ORAL CAVITY: mucosa moist
--- OUTSIDE RECORDS SUMMARY | 2024-12-23 16:47 | XMS_ITS | Clinical Summary ---
Author Organization [facility], Address [address] [place] [address] Phone Care Team Providers Care Bladder Tier Name Role Phone Shawna Ac MD Primary Care Provider [phone] Allergies Active Allergy Reactions Criticality Noted Date [...] Diabetes: Visual Foot Exam 10/16/2020 Influenza Vaccine (Season Ended) 2025 06/18/20 20 Hepatitis B Vaccine Aged Out No longe r eligible based on patient's age to complete this topic Insurance MEDICARE [facility] Care Teams Bladder Tier Relationship Specialty Start Date End Date Shawna Ac MD [address] [place] [id number] PCP - General 09/26/20
--- OUTSIDE RECORDS SUMMARY | 2024-12-23 16:47 | XMS_ITS | Clinical Summary ---
Author Organization [facility] Address [address] [place] [address] Care Team Providers Care Injection Molding Machine Offbearer Name Role Phone Aleksandr Ortiz MD Primary Care Provider [phone] Surgical History Surgery Date Site/Laterality Comments CHOLECYSTECTOMY PROCEDURE: HISTORICAL CHOLECYSTECTOMY TONSILLECTOMY PROCEDURE: HISTORICAL TONSILLECTOMY; COMMENT: and adenoidectomy HYSTERECTOMY PROCEDURE: HISTORICAL HYSTERECTOMY; COMMENT: CHARLEY BSO OTHER SURGICAL HISTORY PROCEDURE: HISTORY OTHER; COMMENT: Surgery for relief elev intraocular press cyclocryotherapy APPENDECTOMY PROCEDURE: HISTORICAL APPENDECTOMY; COMMENT: with the [facility]. OTHER SURGICAL HISTORY PROCEDURE: ---- OTHER ----; [...] Comments: Jayesh. 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 DX:Proctalgia f ugax Osteoporosis 12/17/2016 DX:Osteoporosis; COMMENT: Comments: Has Vitamin D Deficieny and is followed by Enriqueta Gabriel MD 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 Major depression, recurrent (CMS/HCC) 07/11/2011 DX:Major depression, recurrent ([facility]) Nephrolithiasis 01/25/2010 DX:Nephrolithias is Lumbar degenerative disc disease 06/13/2016 DX:Lumbar degenerative disc disease Irritable bowel syndrome 01/06/2013 DX:Irri table bowel syndrome; COMMENT: Comments: diagnosed by Dr Decker gastroenterology [facility] colonoscopy negative jul 05 2003 for cancer Hypothyroidism 11/11/2017 DX:Hypothyroidis m Hypogammaglobulinemia ([facility]/HCC) 01/25/2010 DX:Hypogammaglobulinemia ([facility]); COMMENT: Comments: Was seen by char house supervisor in 2001 who ruled out multiple myeloma [...] 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 in [place] put her on BMP a novel medication that according to her caused damage and resulted in surgeries. Her pain management doctor is Dr Montgomery [phone] Gomez [phone]. Diabetes mellitus type 2, uncomplicated 8 DX:Diabetes mellitus type 2, uncomplicated (HCC) History [...] at Not on file Legal Sex Female 10:20 AM EST Gender Identity Not on file Sexual [...] Vaccines (1 of 2) 2003 RSV Immunization Adult Patients (1 - Risk 60-74 years 1-dose series) 2013 Pneumococcal Vaccine: 50+ Years (2 of 2 - PCV) 06/24/2018 [...] Annual BMP Blood Test 08/31/2022 Influenza Vaccine (Season Ended) 2025 06/18/2023, 06/18/2020, 06/16/2018, Additional history exists HIB Vaccines [...] patient's age to complete this topic Meningococcal B Vaccine Aged Out No l onger eligible based on patient's age to complete this topic RSV Immunization Patients Under 20 months Aged Out No longer eligible based on patient's age to complete this topic Varicella Vaccines Aged Out No longer eligible based on patient's age to complete this topic Procedures Procedure Name Priority Date/Time Associated Diagnosis Comments SOREN SCREENING DIGITAL Routine 12/01/2018 4:18 PM EDT Encounter for screening mammogram for malignant neoplasm of breast from Last 3 Months or Most Recently Relevant to Health Maintenance Results * SOREN SCREENING DIGITAL (12/01/2018 4:18 PM EDT) Anatomical Region Laterality Modality Mammography 12/01/2018 10:4 8 AM EDT Narrative 12/01/2018 4:18 PM EDT [facility] Diagnostic Imaging Department [address] [place] [id number] Patient: ??NAHEED LUNA ?/Age/Sex: 1955 - 63 - F Unit#: ??[id number] ? Location/Status: ??SPDIMAM/REG CLI ? Mnemonic/Ordering Site: ??DIGSC/SPMAM Ordering Physician: ??SHAWNA AC MD [facility] Screening Digital - 12/01/18 - 1139 EXAM: [facility] Screening Digital EXAM DATE AND TIME: 12/01/2018 11:40 AM HISTORY: ??Screening. COMPARISON: ??02/13/17, 04/09/13 TECHNIQUE: CC and MLO views of both breasts were obtained using full field digital mammography. Bilateral digital breast tomosynthesis was performed in the MLO projection. Computer aided detection with the [employer]ight 7.2-H was employed. TISSUE DENSITY: a. The [...] Routine screening mammogram BILATERAL in 1 year. [address]6837, 77245 3342F, 7035F Dictating Physician: ??URVASHI IBARRA MD Electronically Signed by: ??URVASHI IBARRA MD Dic Date/Time: ??12/01/18 9778 Sign date/Time: ??12/01/18 2639 Procedure Note Urvashi Ibarra MD - 09/05/2022 [facility] Diagnostic Imaging Department [address] [place] [id number] Patient: NAHEED LUNA Florinda /Age/Sex: 1955 - 63 - F Unit#: [id number] Location/Status: [facility] CLI Mnemonic/Ordering Site: [facility] Ordering Physician: SHAWNA AC MD [facility] Screening Digital - 12/01/18 - 1139 EXAM: [facility] Screening Digital EXAM DATE AND TIME: 12/01/2018 11:40 AM HISTORY: Screening. COMPARISON: 02/13/17, 04/09/13 TECHNIQUE: CC and MLO views of both breasts were obtained using fullfield digital mammography. Bilateral digital breast tomosynthesis was performedin the MLO projection. Computer aided detection with the Voice2Insight 7.2-Fetch Technologiesas employed. TISSUE DENSITY: a. The breasts are [...] Routine screening mammogram BILATERAL in 1 year. 19596, [id number] 3342F, 7038F Dictating Physician: URVASHI IBARRA MD Electronically Signed by: URVASHI IBARRA MD Dic Date/Time: 12/01/18 1552 Sign date/Time: 12/01/18 1618 us Shawna Ac MD IMG BI PROCEDURES Final Res ult from Last 3 Months or Most Recently Relevant to Health Maintenance Care Teams Injection Molding Machine Offbearer Relationship Specialty Start Date End Date Aleksandr Ortiz MD PCP - General 08/08/22
== END 2024-12-23 14:54 | disposition home or self-care (01) ==
LOC: HO.HCS 14:32
PROVIDERS: PCP Nurse Practitioner Acute Care; Visit Provider Internal Medicine
DX: R07.2 Precordial pain (principal)
CPT/HCPCS: 99213

== ENCOUNTER → 2024-12-23 14:32 | Outpatient (BNVA) | payer MEDICARE, BC, SELFPAY | PROVIDERS: PCP Nurse Practitioner Acute Care; Visit Provider Internal Medicine | DX: R07.2 Precordial pain (principal) | CPT/HCPCS: 99212 ==

== ENCOUNTER 2025-01-07 08:46 | Outpatient (AMB) | payer MEDICARE, BC, SELFPAY ==
--- NOTE | 2025-01-07 08:52 | A.OFFVIS_ITS ---
Vital Signs 01/07/25 08:53 Height 5 ft 6 in Weight 246 lb 14.684 oz BMI 39.8 BP 138/74 Blood Pressure Location Lt brachial Position Sitting Pulse 76 Pulse Source Pulse Oximeter Pulse Oximetry (%) 95 Oxygen Delivery Method Room Air Intake Visit Reasons: Hx Pulm fibrosis, Asthma Allergies denosumab [From Prolia] Allergy (Intermediate, Verified 01/07/25 08:56) Muscle Pain rofecoxib [From Vioxx] Allergy (Verified 01/07/25 08:56) Unknown Lrawzmm-CUU-KmN Reductase Inhibitor Allergy (Verified 01/07/25 08:56) Muscle cramps Iodinated Contrast Media Adverse Reaction (Intermediate, Verified 01/07/25 08:56) Unknown HPI Comments Details: The patient is a 69 year woman with a known history of lupus in addition to underlying pulmonary fibrosis. The patient did have a severe case of COVID requiring hospital level of care. CT scan during that admission back in 2020 demonstrated evidence of ground-glass opacities. Subsequent imaging studies demonstrated reticular changes consistent with pulmonary fibrosis. In the meantime the patient does follow-up the arthritis center for her connective tissue disease. He was diagnosed with lupus. Currently on hydrochloroquine. She continues to have significant musculoskeletal discomfort inflammatory arthritis. The patient back in November 2023 develop worsening chest pain in addition to shortness of breath. She was brought to the [facility] ER where she was evaluated. She had a CTA that I personally reviewed. No evidence of any pulmonary emboli. Although the patient did have significant pneumonitis in addition to pleural thickening suggesting a pleuritis related to her underlying connective tissue disease. She responded to additional Medrol therapy. At this point the patient continues to have pleuritic chest pain and shortness of breath. Although better overall. She was hoping to start immunomodulator therapy such as mycophenolate. In the past she had been offered other immuno modulator such as methotrexate but she was concerned about the potential side effects. Explained to her the mycophenolate also has significant side effects although better option then being on the chronic steroids. Will have to monitor closely her laboratories while she is on it. Therefore she will have blood work before she begins it. Will start slowly and workup to the lowest most effective dose. In addition to that the patient will have additional blood work done to assess for other etiologies for the pneumonitis. The patient also should have a repeat CT scan of the chest to assess the response to the immunomodulator therapy. 03/03/2024 the patient is here for a pulmonary follow-up visit. Overall she is doing okay. She had a tough springtime with significant allergies although she has getting a little better at this time. She also started the mycophenolate. Did initially caused her to have significant fatigue. She did develop tolerance and she has been tolerating better. The patient is able to then increase it to twice a day causing her some headaches. However, she is also developed tolerance and she is doing better with it. We did review her recent CT scan of the chest and we did compare to her previous CTA. Significant improvement in the ground-glass opacity throughout. She still has some patchy areas but very minimal. She does have some scarring at the right base likely from further organization of the inflammatory process. Significantly better. At this point she is on adequate dose based on her response to therapy. The patient also continues have infections. She has had issues with sinuses and issues with her eyes with current infections and now immunocompromised on the immunomodulator therapy. We did check her IgG levels and she has a significantly low IgG level at this time. Therefore, I do believe that with the ongoing respiratory infections and other non respiratory infections treatment with IVIG will be very affecting beneficial. Will go ahead and start the process to have her start IVIG every 4 weeks. The patient also has been using her PAP therapy. I believe she uses the BiPAP. Is followed closely by her doctors in [place]. Recently was adjusted. When she had an overnight oximetry but was on room air so therefore not very helpful she did desaturate but again she was not on her PAP therapy. 04/14/2024 the patient is here for a follow-up visit. The patient has been struggling. . However, her insurance denied herShe had COVID about a month ago. Then after that she is having significant sinusitis. Significant good chest congestion and cough. She has had also postnasal drip. Cough is moderate severe. Sometimes is barky in nature. The patient does have hypogammaglobuli nemia and does take immunosuppressant therapy so therefore she is at risk for worsening infectious process. We did try start her on IVIG but her insurance company required additional information. We did get titers of her pneumococcal vaccine. Appears that about half of the titers are low suggesting a ineffective response to the vaccine. In addition to that with the increasing infectious processes and respiratory illnesses she definitely will benefit from IVIG. The patient also has lupus. She has been on immunosuppressant therapy for lupus. This also flaring up may have been activator precipitated by her COVID infection. She will need additional steroids. The patient will follow-up with her water service dispatcher in the next few weeks. She can have her levels checked again. In the meantime the patient will require antibiotics and also additional Medrol. In addition to that the patient mentioned that when she was initially evaluated for hypogammaglobulinemia she was found to have abnormal protein levels suggesting of multiple myeloma. Then, additional testing may less likely. She has not been evaluated for any blood dyscrasias. But with her immunocompromised condition, hypoglobulinemia chronic infections this should be further evaluated. Therefore will refer her to Hematology. 05/22/2024 the patient is here for pulmonary follow-up visit. She is still struggling with recurrent infections. She is developing again significant sinus congestion and sinus pressure. Will go ahead and start her on prophylactic antibiotics. She has significant hypogammaglobulinemia with decrease in her pneumococcal titers after appropriate vaccination. Therefore, she needs to start IVIG, however, her insurance denied her the much needed therapy. She is going to make her Appeal to the insurance company. Unfortunately, the insurance company also denied my ability to request an appeal. Although it is very clear the patient needs therapy and is better of time for the insurance [facility] to [facility] it. The patient continues on the CellCept. She also continues on the Medrol. She will be starting Benlysta by her water service dispatcher. Hopefully we can wean off some of the Medrol when she is on the Benlysta. From a interstitial lung disease he seems to be responding to the CellCept. She also did follow-up with Hematology. It appears that the blood work for evaluation of multiple myeloma is negative which is reassuring. However she will follow-up with Hematology for further input. 07/31/2024 the patient is here for a pulmonary follow-up visit. Overall she has other complaints now. She is having hard time walking and significant muscle discomfort. She did have her CPK checked and they were considered to be normal. She did look at her medications in the only medication she could find that could have that adverse effect would be the mycophenolate. In addition to that her liver function studies have been climbing. Therefore she will stop it. She has been under Benlysta that is been helping her arthritis. Will have to make sure that her pulmonary interstitial lung disease has not get worse but will go ahead and stop the mycophenolate right now. She has been on the Medrol. In addition to that she was having some increased palpitations in potential arrhythmias. Therefore, the azithromycin was stopped for safety reasons. Although she did feel better after stopping it. She is immunocompromised with significant hypogammaglobulinemia and therefore she needs to be on some prophylactic medication specially she is having some issues with cough right now chest congestion. Will go ahead and send a doxycycline which she tolerates. She will take it twice a day for a couple weeks and then decrease it to once a day. I which point we can consider keeping a prophylactic dose of 1 daily. She is currently requesting a a p.o. of her denial for her IVIG therapy for her significant hypogammaglobulinemia. We tested her pneumococcal titers which were significantly low and her IgG levels are also significantly low. The patient has had recurrent infections both upper and lower respiratory infections and she did requires antibiotics frequently. Will go ahead and request additional blood work right now and she will submit her p.o. to her insurance company so they can provide her the medicine that she needs. In the meantime she continues use oxygen. She does use [employer] for the [employer] company. She has a concentrator at home and she has a smaller POC unit that she uses with activity. She should continue with the oxygen therapy as it has been affecting beneficial and will go ahead and make sure that [employer] has a proper paperwork for her to continue to use their services. 10/22/2024 the patient is here for a pulmonary follow-up visit. Overall she is doing better. Her laboratories that she recently had are significantly improved. Where her inflammation is been decreasing significantly. The patient has been under Benlysta and also has been on the IVIG. She has a lot of complaints about the infusion. IgG is a difficult medication to tolerate at times. She needs to have it administer extremely slowly. Will make sure that the infusion center is following the protocols to minimize adverse effects. She is already premedicated which she has helpful. In the meantime she will continue with the therapy. Will plan to check an IgG trough after her 3rd dose to make sure that levels are adequate. She continues with respiratory therapy with good effect. One issue with the blood work demonstrated that she had an increased hemoglobin consistent with polycythemia. We did have her undergo an overnight oximetry on room air while wearing the CPAP. And she actually did well but she spent only 4.5 minutes below 88%. Therefore, not too significant. But, in view of her polycythemia it will be prudent to use the oxygen if she has it which she does. She can use it at 2 L oxygen per minute via the CPAP. CPAP therapy has been affecting beneficial. She does use it for more than 4 hours a night. Will plan to follow-up in therefore months. Which time will plan to repeat her CT scan of the chest and assess her interstitial lung disease. If any issues arise prior to that she will call for an earlier assessment. 01/07/2025 the patient is here for a sick visit. She started developing worsening cough chest congestion and started also developing some hemoptysis. Mild in severity but was bright red blood. Then became a little darker. She has not seen as much blood today. The patient is not on any blood thinners. Denies any pleuritic chest pain. She did get a port and has been getting her IVIG through her port. She gets it now every 2 weeks because of her significant adverse effects. She seems to be tolerating that better and does being managed now by Hematology. The patient is also following closely with the water service dispatcher. She has been on chronic steroids. 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 Will go ahead and request blood work including a random cortisol level. On further questioning the patient has had blood clots in the past. Denies any chest pains and she is not taking any blood thinners right now. Denies any tachycardia and is not hypoxic. Therefore these symptoms are likely just from a lower respiratory infection so will go ahead and add an antibiotic, Augmentin to her regimen. If however her symptoms persist she can get blood work including a D- dimer so we can further consider the possibility of thromboembolic disease. [facility] Medical History (Updated 01/07/25 @ 09:23 by Kyrie Bliss MD) Abnormal finding on EKG MAURO treated with BiPAP Hypogammaglobulinemia Asthma Lupus Pneumonitis Pulmonary fibrosis Family History Maternal Aunt Brain abscess Bone cancer Maternal Aunt Lung cancer Melanoma Maternal Uncle Melanoma Bone cancer Lung cancer Mother Thyroid cancer Uterine cancer Social History Household Members: Spouse Alcohol intake: current Alcohol intake frequency: does not drink Patient Tobacco Use Status: Former Tobacco user Tobacco use type: Cigarette Years Smoked: 20 Years service: No Current occupational status: retired Review of Systems Const Denies chills, Denies fatigue, Denies fever(s), Denies weight gain and Denies weight loss Eyes Denies change in vision ENT Denies dizziness Card Denies chest pain, Denies leg edema, Denies lightheadedness, Denies p alpitations, Denies dyspnea on exertion, Denies orthopnea and Denies other Resp Reports change in phlegm color, Reports chest congestion, Reports cough, Reports hemoptysis and Denies dyspnea on exertion GI Denies hematochezia and Denies change in stool character Musc Denies abnormal gait, Denies muscle weakness, Denies numbness, Denies radiating pain into limb and Denies tingling Skin/Breast Denies rash Neuro Denies abnormal gait, Denies dizziness, Denies numbness and Denies tingling Endo Denies fatigue and Denies palpitations Sheldon/Lymph Denies easy bleeding Physical Exam Vital Signs: Last Vital Signs Pulse 76 01/07/25 08:53 BP 138/74 01/07/25 08:53 Pulse Ox 95 01/07/25 08:53 Oxygen Delivery Method Room Air 01/07/25 08:53 BMI result Body Mass Index 39.8 Const General: comfortable Orientation/consciousness: patient oriented x3 HEENT Head: Yes normocephalic Neck Neck: Yes supple Chest Chest palpation & inspection: normal inspection of the chest Resp Effort & Inspection: normal respiratory effort Auscultation: no crackles and diminished lung sounds Cardio Heart sounds: S1 normal heart sound present and S2 normal heart sound present GI Palpation (GI): Soft to palpation Skin General skin exam: no rashes or lesions noted Neuro General: patient oriented x3 Extrem General: Yes edema Results Reviewed Results Reviewed: personally reviewed CT ABD 08/2024 with normal lung windows Assessment & Plan Assessment & Plan (1) Pulmonary fibrosis: Code(s): J84.10 - Pulmonary fibrosis, unspecified Category: Medical (2) Pneumonitis: Comment: better Code(s): J98.4 - Other disorders of lung Category: Medical (3) Lupus: Code(s): M32.9 - Systemic lupus erythematosus, unspecified Category: Medical (4) Asthma: Code(s): J45.909 - Unspecified asthma, uncomplicated Category: Medical Qualifiers: Asthma complication type: uncomplicated Asthma persistence: intermittent Asthma severity: mild Qualified Code(s): J45.20 - Mild intermittent asthma, uncomplicated (5) Hypogammaglobulinemia: Code(s): D80.1 - Nonfamilial hypogammaglobulinemia Category: Medical (6) MAURO treated with BiPAP: Code(s): G47.33 - Obstructive sleep apnea (adult) (pediatric) Category: Medical (7) Hemoptysis: Code(s): R04.2 - Hemoptysis Category: Medical Plan continue doxycycline start Augmentin Bloodwork Monitor hemoptysis, seems to better today continue Wixela continue medrol CAROL as needed continue singulair continue IVIG via port as per Hematology continue BIPAP Continue oxygen therapy. Patient uses imaging. 2 L pulse with activity and 2 L at nighttime with PAP therapy F/U 2-3 months Orders: Orders D Dimer High Sensitivity Today R04.2 - Hemoptysis Cortisol Random Today D80.1 - Nonfamilial hypogammaglobulinemia, J45.20 - Mild intermittent asthma, uncomplicated, M32.9 - Systemic lupus erythematosus, unspecified Erythrocyte Sedimentation Rate Today D80.1 - Nonfamilial hypogammaglobulinemia, J45.20 - Mild intermittent asthma, uncomplicated, M32.9 - Systemic lupus erythematosus, unspecified Basic Metabolic Panel Today R04.2 - Hemoptysis Complete Blood Count Auto Diff Today R04.2 - Hemoptysis Medications: New amoxicillin-pot clavulanate 875-125 mg 1 tab PO BID 20 tabs 0RF 10 days Coding Level of Care Code Est Pt Level 5 (72446) Complex EM visit Add On G2211 Diagnoses Pulmonary fibrosis J84.10 Pneumonitis J98.4 Lupus M32.9 Mild intermittent asthma without complication J45.20 Asthma complication type: uncomplicated Asthma persistence: intermittent Asthma severity: mild Hypogammaglobulinemia D80.1 MAURO treated with BiPAP G47.33 Hemoptysis R04.2 Time Spent (min) 30
[2025-01-07 08:53] VITALS: BP 138/74; PULSE 76; O2SAT 95; BMI 39.8
--- OUTSIDE RECORDS SUMMARY | 2025-01-07 09:14 | XMS_ITS | Patient Health Record ---
Author Organization [facility] Address [address] [facility] [place] [address] Care Team Providers Care Applied Researcher Name Role Phone Yashira THOMAS, Shawna Primary Care Provider Steph Dotson Unavailable [phone] Allergies Allergen (clinical drug ingredient) Drug/Non Drug Allergy documented on EMR Reaction Allergy Type Onset Date Status Adhesive Unknown Allergy Active Shellfish (FN) Shellfish-derived Products Unknown Drug Allergy Active Substance with 8-tsjzvqh-4-methylgluta ryl-coenzyme A reductase inhibitor mechanism of action [...] Problem Acquired hammer toe of right foot ([id number] ) Other hammer toe(s) (acquired), right foot (M20.41) Active confirmed Problem Acquired hammer toe of left foot ([id number] ) Other hammer toe(s) (acquired), left foot (M20.42) Active confirmed Problem Polyneuropathy due to type 2 diabetes mellitus (949123162) Type 2 diabetes mellitus with diabetic polyneuropathy (E11.42) Active confirmed Plan Of Treatment Pending Test Test Name Order Date [id number] NAIL, 6 OR MORE 09/27/2020 [id number] NAIL, 1-5 11/29/2020 [id number] Plate 09/27/2020 [id number] SKIN LESIONS, OVER 4 09/27/19 21 [id number] SKIN LESIONS, OVER 4 11/30/19 21 [id number] DYSTROPHIC NAILS ANY # Insurance Providers Payer Name Payer Address Payer Phone Subscriber Number Group Number Insured Name Patient Relationship to Insured Coverage Start Date Coverage End Date Medicare [employer] [address] [place] [address] [id number] Naheed Luna Self - patient is the insured [facility] [address] [place] [address] [id number] Naheed Luna Self - patient is the [...] Surgery Date(Month/Year) tonsillectomy and adenoidectomy 1962 D&C [id number] hysterectomy 1978 oopherectomy 1978 appendectomy 1978 cholecystectomy 1979 disc surgeryC-5,C-6,SI,L5 S-1 Vplate ant erior 2002,2006,2008 carpal tunnel surgery 2003,2005 Hospitalization History Reason Date(Month/Year) [facility] hypokalemia, hypo magnesemia, thyroi d toxicosis 09/2020
--- OUTSIDE RECORDS SUMMARY | 2025-01-07 09:15 | XMS_ITS | Patient Health Record ---
Author Organization [facility] Address [address] [place] [address] Care Team Providers Care Dough Scaler And Mixer Name Role Phone SHARAN JONES Unavailable [phone] BRENDARED GIL Unavailable [phone] ALLERGIES Allergen (clinical drug ingredient) Drug/Non Drug Allergy documented on EMR Reaction Allergy Type Onset Date Status Substance with 9-hokyzmy-2-methylgl utaryl-coenzyme A reductase inhibitor mechanism of action (substance) statins (uncoded) Unknown Allergy Active denosumab Prolia stomach upset Drug Allergy Act jere azithromycin Azithromycin Unknown Drug Allergy A ctive ciprofloxacin Ciprofloxacin Unknown Drug Allergy Active RESULTS Component Value Reference Range Notes Thyroxine (T4)-[id number] Reviewed date:09/30/2024 08:20:48 AM Interpretation: Performing Lab:[facility], [address] [place] [address], Phone - [phone], Director - Tessadry Notes/Report: Thyroxine (T4) 10.6 4.5-12.0 ug/dL Hemoglobin [id number] Reviewed date:09/30/2024 08:20:48 AM Interpretation: Performing Lab:[facility], [address] [place] [address], Phone - [phone], Director - MDJodry Notes/Report: Hemoglobin A1c 9.1 4.8-5.6 % . Prediabetes: 5.7 - 6.4 Diabetes: >6.4 Glycemic control for adults with diabetes: <7.0 TSH-[id number] Reviewed date:09/30/2024 08:20:48 AM Interpretation: Performing Lab:[facility], [address] [place] [address], Phone - [phone], Director - Jodry Notes/Report: TSH 6.050 0.450-4.500 uIU/mL Thyroxine (T4)-[id number] Reviewed date:10/21/2024 08:32:30 AM Interpretation: Performing Lab:[facility], [address] [facility], [place], Phone - [phone], Director Jake May Notes/Report: Thyroxine (T4) 11.2 4.5-12.0 ug/dL Hemoglobin [id number] Reviewed date:10/21/2024 08:32:30 AM Interpretation: Performing Lab:[facility] [place], [address] [facility], [place], Phone - [phone], Director - Lalo Notes/Report: Hemoglobin A1c 8.9 4.8-5.6 % . Prediabetes: 5.7 - 6.4 Diabetes: >6.4 Glycemic control for adults with diabetes: <7.0 [id number]-[id number] Reviewed date:10/21/2024 08:32:30 AM Interpretation: Performing Lab:[facility] [place], [address] [facility], [place], Phone - [phone], Director - Lalo Notes/Report: TSH 2.810 0.450-4.500 uIU/mL REASON FOR REFERRAL Reason abnormal EKG and kallie st pain with [facility] Cardio Diagnosis 1 Abnormal EKG (R94.31 ) Diagnosis 2 Chest pain in adult (R07.9) Referral Organization [facility] Referring Provider First Name SHARAN Referring Provider Last Name KAREN Referring Provider Speciality Internal M edicine Referred Provider Specialty Cardiology General Notes [address] , [address], [place], [place], P [phone], F [phone] Clinical Notes Amy Gonzalez 2023 02:16:15 PM >, Amy Gonzalez 03/10/2024 11:26:47 AM >Referral info faxed to [facility] cards with specialty referral form., Maria Guadalupe [...] will relay the information to the patient, Amy Gonzalez 04/24/2024 01:55:07 PM >Pt called asking for referral to be sent to [facility] Cardiology with Dr. Lozano Amy Gonzalez 04/28/2024 01:45:09 PM >Called and spoke to Samara, confirmed that Naheed wants a second opinion and does not want to stay in [facility] system. Samara states referral is confirmed, books are not open until September and she will contact her then to schedule. TY. Referral Priority Routine Reason [facility] Diagnosis 1 Chronic stasis derma titis (I87.2) Referral Organization [facility] 119 Referring Provider First Name RED Referring Provider Last Name BECKIE Referring Provider Speciality Internal M edicine Referred Provider undefined Referred Provider Specialty Vascular Joao meaghan General Notes Pam Valadez 08:57:33 AM > Referral form faxed to [phone]. Clinical Notes Maria Guadalupe Robert 02:56:33 PM > Referral Priority Routine MEDICATIONS Medication SIG (Take, Route, Frequency, Duration) Notes Start Date End Date Status Sodium Chloride 3 % 4 mL Inhalation Twice a day Active Advair HFA 230-21 MCG/ACT 2 puffs Inhala tion Twice a day prn Active Fluticasone Furoate 50 MCG/ACT 1 puff Inhalation Once a day Active Ipratropium-Albuterol 0.5-2.5 (3) MG/3ML 3 ml as needed Inhalation every 6 hrs Active ZyrTEC Allergy 10 MG 1 tablet Orally Once a day Active Multi Vitamin - 1 tablet Orally Once a day Not-Taking predniSONE 20 MG 1 tablet Orally Once a day Not-Taking Mounjaro 2.5 MG/0.5ML 2.5mg Subcutaneous weekly for 28 days Active Vitamin D 25 MCG (1000 UT) 1 tablet Orally Once a day Not-Taking Synthroid 175 MCG 1 tablet in the morning on an empty stomach Orally Once a day for 90 days Active Probiotic - as directed Orally Not-Taking Mycophenolate Mofetil 500 MG TAKE 1 TABLET TWICE A DAY Oral for 90 Days Not-Taking Hydroxychloroquine Sulfate 200 MG TAKE 1 TABLET TWICE A DAY Oral for 90 Days Not-Taking Nystatin 475552 UNIT/GM 1 application Externally Twice a day for 30 days 08/21/2023 Active Journavx 50 MG 50mg Orally every 12 hours for 30 days 12/11/2024 Active Ondansetron HCl 4 MG 1 tablet as needed for nausea Orally every 12 hours for 30 days 11/28/2023 Active Levalbuterol Tartrate 45 MCG/ACT 1-2 puffs as needed Inhalation every 4 hrs for 30 days Active Diflucan 150 MG 1 tablet Orally once weekly for 84 days 03/02/2024 Active Vitamin C 1000 MG 1 tablet Orally Once a day Not-Taking Magnesium 400 MG as directed Orally Not-Taking Synthroid 200 MCG TAKE 1 TABLET ONCE DAILY INTHE MORNING ON AN EMPTY STOMACH for 90 Active Berberine Complex No t-Taking Zinc 100 MG 1 tablet Orally Once a day Not-Taking Fioricet 50-300-40 MG 1 capsule as needed Orally once a day for 90 days Active Plaquenil 200 MG 1 tablet Orally daily Active metFORMIN HCl ER 500 MG 1 tablet with evening meal Orally Once a day for 90 days 08/04/2024 Active traMADol HCl 50 MG 1 tablet as needed for pain Orally every 6 hours for 30 days 10/23/2024 Active Losartan Potassium 25 MG 1 tablet Orally Once a day for 90 days Active Mucinex 600 MG 1 tablet as needed Orally every 12 hrs Active Metoprolol Succinate ER 50 MG 1 tablet Orally Once a day for 90 days 12/24/2024 Active Mounjaro 7.5 MG/0.5ML 7.5mg Subcutaneous weekly for 30 days 12/24/2024 Active Calcium 500 MG 1 tablet with meals Orally Twice a day Not-Taking CoQ-10 100 MG as directed Orally Not-Taking Miconazole Nitrate 2 % 1 application Externally Twice a day for 30 days 07/08/2024 Not-Taking Synthroid 175 MCG TAKE 1 TABLET EVERY MORNINGON AN EMPTY STOMACH for Active Mounjaro 5 MG/0.5ML INJECT 5 MG (0.5 ML) UNDER THE SKIN ONCE WEEKLY for 28 Active Naltrex 4.5 MG as directed Orally Not-Taking amLODIPine Besylate 10 MG TAKE 1 TABLET ONCE DAILY for 90 Not-Taking Miconazole Antifungal 2 % 1 application Externally Twice a day for 30 days 07/08/2024 Not-Taking Doxycycline 100mg 1x daily Active Levothyroxine Sodium 175 MCG 1 tablet in the morning on an empty stomach Orally every other day for 90 days 09/03/2024 Not-Taking IMMUNIZATIONS Vaccine Route Administration Date Status Comme [...] W/U Status Risk SNOMED Code Notes Problem Hypothyroidism, unspecified (E03.9) Active confirmed Hypothyroidism (53159488) Problem Other obesity (E66.8) Active confirmed Obesity (649727637) Problem Mixed hyperlipidemia (E78.2) Active confirmed 530211538 Problem Hyperlipidemia, unspecified (E78.5) Active confirmed Hyperlipidemia (05542879) Problem Other chronic pain (G89.29) Active confirmed 48961857 Problem Chronic pain syndrome (G89.4) Active confirmed Chronic nikhil n syndrome (333932819) Problem Systemic lupus erythematosus, unspecified (M32.9) Active confirmed Systemic lupus erythematosus (08659416) Problem Age-related osteoporosis without current pathological fracture (M81.0) Active confirmed 75448721 Problem Encounter for screening for lipoid disorders (Z13.220) Active confirmed Lipid screening (837473542) Problem Body mass index (BMI) 38.0-38.9, adult (Z68.38) Active confirmed Body mass ind ex 35.00 to 39.99 (536848843098923) Problem Body mass index (BMI) 39.0-39.9, adult (Z68.39) Active confirmed Body mass ind ex 35.00 to 39.99 (270472824857854) Problem Chronic idiopathic constipation (K59.04) Active confirmed 30666692 Problem Morbid obesity (E66.01) Active confirmed 205853411 Problem Type 2 diabetes mellitus with complication, unspecified whether termination clerk insulin use (E11.8) Active confirmed Disorder due to type 2 diabetes mellitus (428595731) Problem Acquired hypothyroidism (E03.9) Active confirmed 721360097 Problem Adult general medical exam (Z00.00) Active confirmed Adult health examination (986186167) Problem Vitamin D deficiency (E55.9) Active confirmed Vitamin D deficiency (10835220) Problem Hypertension, unspecified type (I10) Active confirmed Essential hypertension (13122539) Problem Type 2 diabetes mellitus without complication, without long-term current use of insulin (E11.9) Active confirmed 377677182 Problem Obesity (BMI 30-39.9) (E66.9) Active confirmed Obesity (529266914) Problem Interstitial lung disease with progressive fibrotic phenotype in diseases classified elsewhere (J84.170) Active confirmed 723143140 Problem BMI 35.0-35.9,adult (Z68.35) Active confirmed Obese class II (564243895566554) Problem Pulmonary fibrosis (J84.10) Active confirmed 30695606 Problem Body mass index [BMI] 40.0-44.9, adult (Z68.41) Active confirmed 546784237 Problem Chronic venous insufficiency (I87.2) Active confirmed 49663248 Problem Avitaminosis D (E55.9) Active confirmed Avitaminosis D (69555382) Problem Abnormal metabolic state due to diabetes mellitus (E11.9) Active confirmed Abnormal metabolic state due to diabetes mellitus (549058967) Problem Interstitial cystitis (N30.10) Active confirmed 577540532 Problem Other osteoporosis with current pathological fracture with routine healing, subsequent encounter (M80.80XD) Active confirmed 42860441 Problem Chronic stasis dermatitis (I87.2) Active confirmed Peripheral veno us insufficiency (71805579) VITAL SIGNS Heart Rate 80 /min 12/11/2024 Oximetry 98 % 12/11/2024 Blood pressure diastolic 78 mm Hg 12/11/2024 Height 66 in 12/11/2024 Blood pressure systolic 120 mm Hg 12/11/2024 Weight 250 lbs 12/11/2024 BMI 40.35 kg/m2 12/11/2024 Encounters Encounter Location Date Provider Diagnosis [facility] [address] [address] 11/04/2024 [facility] [address] [place] [address] 03/02/2024 TALDHEERAJ JONES Age-related osteoporosis without current pathological fracture M81.0 ; Annual physical exam Z00.00 ; Type 2 diabetes mellitus without complication, without long-term current use of insulin E11.9 ; Hypothyroidism, unspecified type E03.9 ; Hypertension, unspecified type I10 ; Lupus M32.9 ; Pulmonary fibrosis, unspecified J84.10 and Fungal infection B49 [facility] [address] [place] [address] 07/08/2024 TALDHEERAJ JONES Chronic pain syndrom e G89.4 ; Type 2 diabetes mellitus with complication, unspecified whether care home insulin use E11.8 ; Hyperlipidemia, unspecified E78.5 ; Age-related osteoporosis without current pathological fracture M81.0 and Lupus M32.9 [place] [address] 09/15/2024 [place] Atypical chest pain R07.89 ; Bilateral lower extremity edema R60.0 ; Chronic venous insufficiency I87.2 ; Acquired hypothyroidism E03.9 ; Abnormal metabolic state due to diabetes mellitus E11.9 and Hypothyroidism, unspecified E03.9 [facility] [address] 10/06/2024 [place] Atypical chest pain R07.89 ; Acquired hypothyroidism E03.9 ; Bilateral lower extremity edema R60.0 ; Chronic venous insufficiency I87.2 ; Abnormal metabolic state due to diabetes mellitus E11.9 ; Pulmonary fibrosis J84.10 and Hypothyroidism, unspecified E03.9 [place] [address] 12/11/2024 [place] Atypical chest pain R07.89 ; Acquired hypothyroidism E03.9 ; Bilateral lower extremity edema R60.0 ; Chronic venous insufficiency I87.2 ; Abnormal metabolic state due to diabetes mellitus E11.9 ; Pulmonary fibrosis J84.10 ; Hypothyroidism, unspecified E03.9 and Chronic pain syndrome G89.4 [facility] [address] [place] [address] 04/08/2024 TALDHEERAJ JONES [place] [address] 04/24/2024 TALAL KAREN [place] [address] 07/08/2024 TALDHEERAJ JONES [facility] [address] 07/08/2024 SHARAN JONES [facility] [address] [place] [address] 07/10/2024 SHARAN JONES Chronic pain syndrom e G89.[address] [facility] [address] [place] [address] 07/28/2024 SHARAN JONES [address] [place] [address] 08/03/2024 SHARAN JONES [facility] [address] [place] [address] 09/01/2024 SHARAN JONES [facility] [address] [place] [address] 09/14/[address] [place] [facility] [address] [place] [address] 09/17/2024 [place] Atypical chest pain R07.[address] [facility] [address] [place] [address] 09/18/2024 [place] Atypical chest pain R07.89 [facility] [address] [place] [address] 09/28/[address] [facility] [address] [place] [address] 10/14/2024 [place] [address] [place] [address] 10/15/[address] [place] [facility] [address] [place] [address] 10/15/[address] [place] [facility] [address] [place] [address] 10/22/2024 [place] [address] [place] [address] 12/24/2024 [place] [address] [place] [address] 12/24/2024 [place] [address] [place], [place] 09/18/2024 SHARAN JONES ASSESSMENTS Encounter Date Diagnosis Assessment Notes Treatment Notes Treatment Clinical Notes Section Notes 03/02/2024 Age-related osteoporosis without current pathological fracture [...] 150mg PO once every 2 weeks. Nystatin 683824 UNIT/GM Ointment 1 application Externally Twice a [...] 150mg PO once every 2 weeks. Nystatin 183779 UNIT/GM Ointment 1 application Externally Twice a [...] of them. She will get a new supervisor print line and might need to increase dose of beta-george in setting of arrhythmias. Please follow-up on oncology notes consider repeat EKGs regularly to monitor QT intervals blood work and follow-up advised 07/08/2024 Type 2 diabetes mellitus with complication, unspecified whether care home insulin use (ICD-10 - E11.8) Patient with [...] of them. She will get a new supervisor print line and might need to increase dose of beta-george in setting of arrhythmias. Please follow-up on oncology notes consider repeat EKGs regularly to monitor QT intervals blood work and follow-up advised 07/10/2024 Chronic pain syndrome (ICD-10 - G89.4) 09/15/2024 Atypical chest pain (ICD-10 - R07.89) Start Mounjaro 2.5 mg Synthroid decreased to 175 mcg and check TSH total T4 Vascular surgery referral Echocardiogram to assess wall motion Amlodipine has been known to cause lower extremity edema Discussed compression stockings and elevation Of note, some information is being carried forward from prior records for informational purposes only and is being cited so that efficiency, safety and quality of the patient's care is not compromised This note was prepared using voice recognition software and direct typing Please excuse inadvertent permaculture designer or typing errors, or uncorrected word substitutions Although every attempt has been made by the provider to proofread this document, occasional misspellings and typographical errors may still be present Due to the previous pandemic, and the use of personal protective equipment (PPE) This may decrease voice recognition accuracy Inadvertent permaculture designer errors may occur 09/15/2024 Bilateral lower extremity edema (ICD-10 - R60.0) Start Mounjaro 2.5 mg Synthroid decreased to 175 mcg and check TSH total T4 Vascular surgery referral Echocardiogram to assess wall motion Amlodipine has been known to cause lower extremity edema Discussed compression stockings and elevation Of note, some information is being carried forward from prior records for informational purposes only and is being cited so that efficiency, safety and quality of the patient's care is not compromised This note was prepared using voice recognition software and direct typing Please excuse inadvertent permaculture designer or typing errors, or uncorrected word substitutions Although every attempt has been made by the provider to proofread this document, occasional misspellings and typographical errors may still be present Due to the previous pandemic, and the use of personal protective equipment (PPE) This may decrease voice recognition accuracy Inadvertent permaculture designer errors may occur 09/17/2024 Atypical chest pain (ICD-10 - R07.89) 09/18/2024 Atypical chest pain (ICD-10 - R07.89) 12/11/2024 Atypical chest pain (ICD-10 - R07.89) [...] software and direct typing Please excuse inadvertent permaculture designer or typing errors, or uncorrected word substitutions Although every attempt has been made by the provider to proofread this document, occasional misspellings and typographical errors may still be present Due to the previous pandemic, and the use of personal protective equipment (PPE) This may decrease voice recognition accuracy Inadvertent permaculture designer errors may occur 10/06/2024 Acquired hypothyroidism (ICD-10 - E03.9) Acute Concerns/Problem List: 10/06/2024 Increase Mounjaro to 5 mg, improved from glycemic index Improving TSH and within normal T4 Continue 175 mcg of Synthroid Vascular surgery referral Echocardiogram to assess wall motion Amlodipine has been known to cause lower extremity edema Discussed compression stockings and elevation Of note, some information is being carried forward from prior records for informational purposes only and is being cited so that efficiency, safety and quality of the patient's care is not compromised This note was prepared using voice recognition software and direct typing Please excuse inadvertent permaculture designer or typing errors, or uncorrected word substitutions Although every attempt has been made by the provider to proofread this document, occasional misspellings and typographical errors may still be present Due to the previous pandemic, and the use of personal protective equipment (PPE) This may decrease voice recognition accuracy Inadvertent permaculture designer errors may occur 10/06/2024 Atypical chest pain (ICD-10 - R07.89) Acute Concerns/Problem List: 10/06/2024 Increase Mounjaro to 5 mg, improved from glycemic index Improving TSH and within normal T4 Continue 175 mcg of Synthroid Vascular surgery referral Echocardiogram to assess wall motion Amlodipine has been known to cause lower extremity edema Discussed compression stockings and elevation Of note, some information is being carried forward from prior records for informational purposes only and is being cited so that efficiency, safety and quality of the patient's care is not compromised This note was prepared using voice recognition software and direct typing Please excuse inadvertent permaculture designer or typing errors, or uncorrected word substitutions Although every attempt has been made by the provider to proofread this document, occasional misspellings and typographical errors may still be present Due to the previous pandemic, and the use of personal protective equipment (PPE) This may decrease voice recognition accuracy Inadvertent permaculture designer errors may occur 10/06/2024 Bilateral lower extremity edema (ICD-10 - R60.0) Acute Concerns/Problem List: 10/06/2024 Increase Mounjaro to 5 mg, improved from glycemic index Improving TSH and within normal T4 Continue 175 mcg of Synthroid Vascular surgery referral Echocardiogram to assess wall motion Amlodipine has been known to cause lower extremity edema Discussed compression stockings and elevation Of note, some information is being carried forward from prior records for informational purposes only and is being cited so that efficiency, safety and quality of the patient's care is not compromised This note was prepared using voice recognition software and direct typing Please excuse inadvertent permaculture designer or typing errors, or uncorrected word substitutions Although every attempt has been made by the provider to proofread this document, occasional misspellings and typographical errors may still be present Due to the previous pandemic, and the use of personal protective equipment (PPE) This may decrease voice recognition accuracy Inadvertent permaculture designer errors may occur 12/11/2024 Acquired hypothyroidism (ICD-10 [...] software and direct typing Please excuse inadvertent permaculture designer or typing errors, or uncorrected word substitutions Although every attempt has been made by the provider to proofread this document, occasional misspellings and typographical errors may still be present Due to the previous pandemic, and the use of personal protective equipment (PPE) This may decrease voice recognition accuracy Inadvertent permaculture designer errors may occur 12/11/2024 Bilateral lower extremity [...] software and direct typing Please excuse inadvertent permaculture designer or typing errors, or uncorrected word substitutions Although every attempt has been made by the provider to proofread this document, occasional misspellings and typographical errors may still be present Due to the previous pandemic, and the use of personal protective equipment (PPE) This may decrease voice recognition accuracy Inadvertent permaculture designer errors may occur 09/15/2024 Chronic venous insufficiency (ICD-10 - I87.2) Start Mounjaro 2.5 mg Synthroid decreased to 175 mcg and check TSH total T4 Vascular surgery referral Echocardiogram to assess wall motion Amlodipine has been known to cause lower extremity edema Discussed compression stockings and elevation Of note, some information is being carried forward from prior records for informational purposes only and is being cited so that efficiency, safety and quality of the patient's care is not compromised This note was prepared using voice recognition software and direct typing Please excuse inadvertent permaculture designer or typing errors, or uncorrected word substitutions Although every attempt has been made by the provider to proofread this document, occasional misspellings and typographical errors may still be present Due to the previous pandemic, and the use of personal protective equipment (PPE) This may decrease voice recognition accuracy Inadvertent permaculture designer errors may occur 07/08/2024 Hyperlipidemia, unspecified (ICD-10 - E78.5) Patient [...] of them. She will get a new supervisor print line and might need to increase dose of [...] 150mg PO once every 2 weeks. Nystatin 750695 UNIT/GM Ointment 1 application Externally Twice a day. Discussed the importance of regular follow up with her specialist as well as remaining UTD on vaccinations. Discussed the importance of continuing lifestyle maintanence with healhty diet and regular exercise. Follow up in June for maintancence. 03/02/2024 Hypothyroidism, unspecified type (ICD-10 - E03.9) [...] 150mg PO once every 2 weeks. Nystatin 827892 UNIT/GM Ointment 1 application Externally Twice a [...] of them. She will get a new supervisor print line and might need to increase dose of beta-george in setting of arrhythmias. Please follow-up on oncology notes consider repeat EKGs regularly to monitor QT intervals blood work and follow-up advised 12/11/2024 Chronic venous insufficiency (ICD-10 - I87.2) [...] software and direct typing Please excuse inadvertent permaculture designer or typing errors, or uncorrected word substitutions Although every attempt has been made by the provider to proofread this document, occasional misspellings and typographical errors may still be present Due to the previous pandemic, and the use of personal protective equipment (PPE) This may decrease voice recognition accuracy Inadvertent permaculture designer errors may occur 09/15/2024 Acquired hypothyroidism (ICD-10 - E03.9) Start Mounjaro 2.5 mg Synthroid decreased to 175 mcg and check TSH total T4 Vascular surgery referral Echocardiogram to assess wall motion Amlodipine has been known to cause lower extremity edema Discussed compression stockings and elevation Of note, some information is being carried forward from prior records for informational purposes only and is being cited so that efficiency, safety and quality of the patient's care is not compromised This note was prepared using voice recognition software and direct typing Please excuse inadvertent permaculture designer or typing errors, or uncorrected word substitutions Although every attempt has been made by the provider to proofread this document, occasional misspellings and typographical errors may still be present Due to the previous pandemic, and the use of personal protective equipment (PPE) This may decrease voice recognition accuracy Inadvertent permaculture designer errors may occur 10/06/2024 Chronic venous insufficiency (ICD-10 - I87.2) Acute Concerns/Problem List: 10/06/2024 Increase Mounjaro to 5 mg, improved from glycemic index Improving TSH and within normal T4 Continue 175 mcg of Synthroid Vascular surgery referral Echocardiogram to assess wall motion Amlodipine has been known to cause lower extremity edema Discussed compression stockings and elevation Of note, some information is being carried forward from prior records for informational purposes only and is being cited so that efficiency, safety and quality of the patient's care is not compromised This note was prepared using voice recognition software and direct typing Please excuse inadvertent permaculture designer or typing errors, or uncorrected word substitutions Although every attempt has been made by the provider to proofread this document, occasional misspellings and typographical errors may still be present Due to the previous pandemic, and the use of personal protective equipment (PPE) This may decrease voice recognition accuracy Inadvertent permaculture designer errors may occur 10/06/2024 Abnormal metabolic state due to diabetes mellitus (ICD-10 - E11.9) Acute Concerns/Problem List: 10/06/2024 Increase Mounjaro to 5 mg, improved from glycemic index Improving TSH and within normal T4 Continue 175 mcg of Synthroid Vascular surgery referral Echocardiogram to assess wall motion Amlodipine has been known to cause lower extremity edema Discussed compression stockings and elevation Of note, some information is being carried forward from prior records for informational purposes only and is being cited so that efficiency, safety and quality of the patient's care is not compromised This note was prepared using voice recognition software and direct typing Please excuse inadvertent permaculture designer or typing errors, or uncorrected word substitutions Although every attempt has been made by the provider to proofread this document, occasional misspellings and typographical errors may still be present Due to the previous pandemic, and the use of personal protective equipment (PPE) This may decrease voice recognition accuracy Inadvertent permaculture designer errors may occur 12/11/2024 Abnormal metabolic state [...] software and direct typing Please excuse inadvertent permaculture designer or typing errors, or uncorrected word substitutions Although every attempt has been made by the provider to proofread this document, occasional misspellings and typographical errors may still be present Due to the previous pandemic, and the use of personal protective equipment (PPE) This may decrease voice recognition accuracy Inadvertent permaculture designer errors may occur 07/08/2024 Lupus (ICD-10 - M32.9) Patient with [...] of them. She will get a new supervisor print line and might need to increase dose of [...] 150mg PO once every 2 weeks. Nystatin [id number] UNIT/GM Ointment 1 application Externally Twice a day. Discussed the importance of regular follow up with her specialist as well as remaining UTD on vaccinations. Discussed the importance of continuing lifestyle maintanence with healhty diet and regular exercise. Follow up in June for maintancence. 03/02/2024 Lupus (ICD-10 - M32.9) 1. T2DM [...] 150mg PO once every 2 weeks. Nystatin 285399 UNIT/GM Ointment 1 application Externally Twice a day. Discussed the importance of regular follow up with her specialist as well as remaining UTD on vaccinations. Discussed the importance of continuing lifestyle maintanence with healhty diet and regular exercise. Follow up in June for maintancence. 12/11/2024 Pulmonary fibrosis (ICD-10 - J84.10) Acute [...] software and direct typing Please excuse inadvertent permaculture designer or typing errors, or uncorrected word substitutions Although every attempt has been made by the provider to proofread this document, occasional misspellings and typographical errors may still be present Due to the previous pandemic, and the use of personal protective equipment (PPE) This may decrease voice recognition accuracy Inadvertent permaculture designer errors may occur 09/15/2024 Abnormal metabolic state due to diabetes mellitus (ICD-10 - E11.9) Start Mounjaro 2.5 mg Synthroid decreased to 175 mcg and check TSH total T4 Vascular surgery referral Echocardiogram to assess wall motion Amlodipine has been known to cause lower extremity edema Discussed compression stockings and elevation Of note, some information is being carried forward from prior records for informational purposes only and is being cited so that efficiency, safety and quality of the patient's care is not compromised This note was prepared using voice recognition software and direct typing Please excuse inadvertent permaculture designer or typing errors, or uncorrected word substitutions Although every attempt has been made by the provider to proofread this document, occasional misspellings and typographical errors may still be present Due to the previous pandemic, and the use of personal protective equipment (PPE) This may decrease voice recognition accuracy Inadvertent permaculture designer errors may occur 10/06/2024 Pulmonary fibrosis (ICD-10 - J84.10) Acute Concerns/Problem List: 10/06/2024 Increase Mounjaro to 5 mg, improved from glycemic index Improving TSH and within normal T4 Continue 175 mcg of Synthroid Vascular surgery referral Echocardiogram to assess wall motion Amlodipine has been known to cause lower extremity edema Discussed compression stockings and elevation Of note, some information is being carried forward from prior records for informational purposes only and is being cited so that efficiency, safety and quality of the patient's care is not compromised This note was prepared using voice recognition software and direct typing Please excuse inadvertent permaculture designer or typing errors, or uncorrected word substitutions Although every attempt has been made by the provider to proofread this document, occasional misspellings and typographical errors may still be present Due to the previous pandemic, and the use of personal protective equipment (PPE) This may decrease voice recognition accuracy Inadvertent permaculture designer errors may occur 12/11/2024 Hypothyroidism, unspecified (ICD-10 [...] software and direct typing Please excuse inadvertent permaculture designer or typing errors, or uncorrected word substitutions Although every attempt has been made by the provider to proofread this document, occasional misspellings and typographical errors may still be present Due to the previous pandemic, and the use of personal protective equipment (PPE) This may decrease voice recognition accuracy Inadvertent permaculture designer errors may occur 09/15/2024 Hypothyroidism, unspecified (ICD-10 - E03.9) Start Mounjaro 2.5 mg Synthroid decreased to 175 mcg and check TSH total T4 Vascular surgery referral Echocardiogram to assess wall motion Amlodipine has been known to cause lower extremity edema Discussed compression stockings and elevation Of note, some information is being carried forward from prior records for informational purposes only and is being cited so that efficiency, safety and quality of the patient's care is not compromised This note was prepared using voice recognition software and direct typing Please excuse inadvertent permaculture designer or typing errors, or uncorrected word substitutions Although every attempt has been made by the provider to proofread this document, occasional misspellings and typographical errors may still be present Due to the previous pandemic, and the use of personal protective equipment (PPE) This may decrease voice recognition accuracy Inadvertent permaculture designer errors may occur 03/02/2024 Pulmonary fibrosis, unspecified (ICD-10 - J84.10) [...] 150mg PO once every 2 weeks. Nystatin 210221 UNIT/GM Ointment 1 application Externally Twice a day. Discussed the importance of regular follow up with her specialist as well as remaining UTD on vaccinations. Discussed the importance of continuing lifestyle maintanence with healhty diet and regular exercise. Follow up in June for maintancence. 03/02/2024 Fungal infection (ICD-10 - B49) 1. [...] 150mg PO once every 2 weeks. Nystatin 453262 UNIT/GM Ointment 1 application Externally Twice a day. Discussed the importance of regular follow up with her specialist as well as remaining UTD on vaccinations. Discussed the importance of continuing lifestyle maintanence with healhty diet and regular exercise. Follow up in June for maintancence. 12/11/2024 Chronic pain syndrome (ICD-10 - G89.4) [...] software and direct typing Please excuse inadvertent permaculture designer or typing errors, or uncorrected word substitutions Although every attempt has been made by the provider to proofread this document, occasional misspellings and typographical errors may still be present Due to the previous pandemic, and the use of personal protective equipment (PPE) This may decrease voice recognition accuracy Inadvertent permaculture designer errors may occur 10/06/2024 Hypothyroidism, unspecified (ICD-10 - E03.9) Acute Concerns/Problem List: 10/06/2024 Increase Mounjaro to 5 mg, improved from glycemic index Improving TSH and within normal T4 Continue 175 mcg of Synthroid Vascular surgery referral Echocardiogram to assess wall motion Amlodipine has been known to cause lower extremity edema Discussed compression stockings and elevation Of note, some information is being carried forward from prior records for informational purposes only and is being cited so that efficiency, safety and quality of the patient's care is not compromised This note was prepared using voice recognition software and direct typing Please excuse inadvertent permaculture designer or typing errors, or uncorrected word substitutions Although every attempt has been made by the provider to proofread this document, occasional misspellings and typographical errors may still be present Due to the previous pandemic, and the use of personal protective equipment (PPE) This may decrease voice recognition accuracy Inadvertent permaculture designer errors may occur PLAN OF TREATMENT Pending Test Test Name Order Date Hemoglobin A1c 07/15/2019 Lipid Panel 07/15/2019 Comp. Metabolic Panel (14) 07/15/2019 CBC 07/15/2019 Bone Density 06/22/2022 Urinalysis 07/15/2019 CBC (COMPLETE BLOOD COUNT) 02/17/2018 COMPREHENSIVE METABOLIC PANEL 02/17/2018 HEMOGLOBIN A1C 02/17/2018 URINALYSIS, COMPLETE 02/17/2018 XR Ribs w Chest 3+ Views RT 09/23/2019 LIPID PANEL, STANDARD 09/03/2022 LIPID PANEL, STANDARD 04/29/2023 LIPID PANEL, STANDARD 12/11/2024 COMPREHENSIVE METABOLIC PANEL 04/29/2023 COMPREHENSIVE METABOLIC PANEL 09/03/2022 COMPREHENSIVE METABOLIC PANEL 12/11/2024 MAGNESIUM 07/10/2024 CBC (INCLUDES DIFF/PLT) 12/11/2024 CBC (INCLUDES DIFF/PLT) 09/03/2022 URINALYSIS, COMPLETE 09/03/2022 URINALYSIS, COMPLETE 12/11/2024 URINALYSIS, COMPLETE 04/29/2023 HEMOGLOBIN A1c 09/15/2024 HEMOGLOBIN A1c 10/06/2024 HEMOGLOBIN A1c 12/11/2024 HEMOGLOBIN A1c 09/03/2022 HEMOGLOBIN A1c 04/29/2023 T4, FREE 04/29/2023 T4 (THYROXINE), TOTAL 12/11/2024 T4 (THYROXINE), TOTAL 10/06/2024 T4 (THYROXINE), TOTAL 09/15/2024 TSH 09/15/2024 TSH 10/06/2024 TSH 04/29/2023 TSH 09/03/2022 TSH W/REFLEX TO FT4 12/11/2024 VITAMIN D,25-OH,TOTAL,IA 12/11/2024 VITAMIN D,25-OH,TOTAL,IA 09/03/2022 Next Appt Details Provider Name:RED BUTTS, 02/15/2025 11:00:00 AM, [address] [facility], [facility] [address], [place], [address], Insurance Providers Payer Name Payer Address Payer Phone Subscriber Number Group Number Insured Name Patient Relationship to Insured Coverage Start Date Coverage End Date Medicare Part B [id number] [address] [place] [address] [id number] NAHEED ARGUELLO Self - patient is the insured 8 [employer] and [employer] [facility] [address] [place] [address] [id number] NAHEED ARGUELLO Self - patient is the insured 0 MEDICATIONS ADMINISTERED Medication Instructions Date of Administration Dosage Notes MICC B12 INJECTION 04/24/2022 lot # [id number] MICC B12 INJECTION 05/08/2022 1 mL Lot #: [id number] MICC B12 INJECTION 05/23/2022 lot @ [id number] MICC B12 INJECTION 06/05/2022 1 mL Lot #: [id number] MICC B12 INJECTION 06/19/2022 lot # [id number] MICC B12 INJECTION 06/26/2022 lot # [id number] MICC B12 INJECTION 07/03/2022 1 mL Lot #: [id number] MICC B12 INJECTION 07/10/2022 lot # [id number] MICC B12 INJECTION 07/17/2022 lot # [id number] MICC B12 INJECTION 07/24/2022 MICC B12 INJECTION 07/31/2022 [id number] MICC B12 INJECTION 08/07/2022 lot # [id number] MICC B12 INJECTION 08/14/2022 MICC B12 INJECTION 08/21/2022 1 mL Lot #: [id number] MICC B12 INJECTION 08/28/2022 MICC B12 INJECTION 09/03/2022 lot # [id number] MICC B12 INJECTION 09/12/2022 lot [id number] MICC B12 INJECTION 09/19/2022 1 mL Lot #: [id number] MICC B12 INJECTION 09/26/2022 1 mL Lot # [id number] MICC B12 INJECTION 10/03/2022 lot # [id number] MICC B12 INJECTION 10/10/2022 1 mL Lot #: [id number] MICC B12 INJECTION 10/17/2022 1 mL Lot #: [id number] MICC B12 INJECTION 10/24/2022 MICC B12 INJECTION 10/31/2022 [id number] MICC B12 INJECTION 11/07/2022 lot # [id number] MICC B12 INJECTION 11/14/2022 1 mL Lot # [id number] MICC B12 INJECTION 11/21/2022 1 mL Lot # [id number] MICC B12 INJECTION 11/28/2022 [id number] MICC B12 INJECTION 12/05/2022 lot# [id number] MICC B12 INJECTION 12/12/2022 [id number] MICC B12 INJECTION 01/23/2023 1 mL Lot #: [id number] MICC B12 INJECTION 01/30/2023 lot # [id number] MICC B12 INJECTION 02/06/2023 1 mL Lot # [id number] MICC B12 INJECTION 02/13/2023 lot # [id number] MICC B12 INJECTION 02/20/2023 1 mL Lot # [id number] Prolia 05/09/2023 1 MEDICAL (GENERAL) HISTORY Medical History History ICD Code Hypothyroidism asthma lupus anemia brain anuerysm Pulmonary fibrosis Osteoporosis Surgical History Surgery Date(Month/Year) carpal tunnel release colonoscopy 3 years hysterectomy 1978 gallbladder 1979 Hospitalization History Reason Date(Month/Year) [facility]- BLE edema, 2023 COVID 2020
--- OUTSIDE RECORDS SUMMARY | 2025-01-07 09:15 | XMS_ITS | Clinical Summary ---
Author Organization [facility] Address [address] [place] [address] Care Team Providers Care Drill Grinder Name Role Phone Aleksandr Ortiz MD Primary Care Provider [phone] Surgical History Surgery Date Site/Laterality Comments CHOLECYSTECTOMY PROCEDURE: HISTORICAL CHOLECYSTECTOMY TONSILLECTOMY PROCEDURE: HISTORICAL TONSILLECTOMY; COMMENT: and adenoidectomy HYSTERECTOMY PROCEDURE: HISTORICAL HYSTERECTOMY; COMMENT: CHARLEY BSO OTHER SURGICAL HISTORY PROCEDURE: HISTORY OTHER; COMMENT: Surgery for relief elev intraocular press cyclocryotherapy APPENDECTOMY PROCEDURE: HISTORICAL APPENDECTOMY; COMMENT: with the [facility]. OTHER SURGICAL HISTORY PROCEDURE: ---- OTHER ----; [...] Comments: Jayesh. Managed by Dr Enriqueta Gabriel flue blower in [place] Substance dependence, contin uous ([facility] V24, [facility] V28) 12/10/2017 DX:Substance dependence, co ntinuous ([facility]); COMMENT: Opioids Paresthesia of both legs 06/24/2017 DX:Pare sthesia of both legs Vitamin D deficiency 11/11/2017 DX:Vitamin D deficiency Systemic lupus erythematosus ([facility] V24, [facility] V28) 05/05/2018 DX:Systemic lupus erythemato erica (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) Nephrolithiasis 01/25/2010 DX:Nephrolithias is Lumbar degenerative disc disease 06/13/2016 DX:Lumbar degenerative disc disease Irritable bowel syndrome 01/06/2013 DX:Irri table bowel syndrome; COMMENT: Comments: diagnosed by Dr Decker gastroenterology [facility] colonoscopy negative jul 05 2003 for cancer Hypothyroidism 11/11/2017 DX:Hypothyroidis m Hypogammaglobulinemia ([facility] [place]) 01/25/2010 DX:Hypogammaglobulinemia (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) Migraine with aura 01/02/2012 DX:Migraine w ith aura Chronic pain 02/11/2018 DX:Chronic pain Chronic interstitial cystitis 08/27/2012 DX :Chronic interstitial cystitis; COMMENT: Comments: SEES A urologist Dr Hammond Allergic rhinitis 12/16/2012 DX:Allergic rh initis Osteoarthritis 10/13/2018 DX:Osteoarthriti s; COMMENT: s/p surgery of SI joint. in [place] put her on BMP a novel medication that according to her caused damage and resulted in surgeries. Her pain management doctor is Dr Montgomery [phone]. Ultrasound Technologist Sonographer Dr Gomez [phone]. Diabetes mellitus type 2, un complicated ([facility] V24, [facility] V28) 05/05/2018 DX:Diabetes mellitus type 2 , uncomplicated (HCC) History of Lyme disease 10/13/2018 [...] EDT [facility] Diagnostic Imaging Department [address] [place] [id number] Patient: ??NAHEED LUNA ?/Age/Sex: 1955 - 63 - F Unit#: ??[id number] ? Location/Status: ??SPDIMAM/REG CLI ? Mnemonic/Ordering Site: ??DIGSC/SPMAM Ordering Physician: ??JONAS AC MD [facility] Screening Digital - 12/01/18 - 1139 EXAM: [facility] Screening Digital EXAM DATE AND TIME: 12/01/2018 11:40 AM HISTORY: ??Screening. COMPARISON: ??02/13/17, 04/09/13 TECHNIQUE: CC and MLO views of both breasts were obtained using full field digital mammography. Bilateral digital breast tomosynthesis was performed in the MLO projection. Computer aided detection with the Chubbies Shorts 7.2-H was employed. TISSUE DENSITY: a. The [...] Routine screening mammogram BILATERAL in 1 year. [id number], 12889 3172F, 3749F Dictating Physician: ??URVASHI IBARRA MD Electronically Signed by: ??URVASHI IBARRA MD Dic Date/Time: ??12/01/18 4299 Sign date/Time: ??12/01/18 3360 Procedure Note Urvashi Ibarra MD - 09/05/2022 [facility] Diagnostic Imaging Department [address] [place], [place] [id number] Patient: NAHEED LUNA /Age/Sex: 1955 - 63 - F Unit#: [id number] Location/Status: [facility] CLI Mnemonic/Ordering Site: [facility] Ordering Physician: JONAS AC MD [facility] Screening Digital - 12/01/18 - 1139 EXAM: [facility] Screening Digital EXAM DATE AND TIME: 12/01/2018 11:40 AM HISTORY: Screening. COMPARISON: 02/13/17, 04/09/13 TECHNIQUE: CC and MLO views of both breasts were obtained using fullfield digital mammography. Bilateral digital breast tomosynthesis was performedin the MLO projection. Computer aided detection with the Chubbies Shorts 7.2-Hwas employed. TISSUE DENSITY: a. The breasts [...] Routine screening mammogram BILATERAL in 1 year. [id number], 44966 3342F, 7025F Dictating Physician: URVASHI IBARRA MD Electronically Signed by: URVASHI IBARRA MD Dic Date/Time: 12/01/18 1552 Sign date/Time: 12/01/18 1618 us Jonas Ac MD IMG BI PROCEDURES Final Res ult from Last 3 Months or Most Recently Relevant to Health Maintenance Care Teams Drill Grinder Relationship Specialty Start Date End Date Aleksandr Ortiz MD PCP - General 08/08/22
--- OUTSIDE RECORDS SUMMARY | 2025-01-07 09:15 | XMS_ITS ---
Author Organization [facility] Address [address] [facility] [place] [address] Care Team Providers Care Environmental Sampling Technician Name Role Phone SHARAN JONES Unavailable [phone] SHANNONRED Nevarez Unavailable [phone] ALLERGIES Allergen (clinical drug ingredient) Drug/Non Drug Allergy documented on EMR Reaction Allergy Type Onset Date Status Substance with 2-xuzbctz-1-methylgl utaryl-coenzyme A reductase inhibitor mechanism of action [...] a day for 90 days Active Nystatin 853727 UNIT/GM 1 application Externally Twice a day [...] 12/11/2024 Encounters Encounter Location Date Provider Diagnosis [facility] [address] [facility] [address] [place] [address] 12/11/2024 RED BUTTS Atypical chest pain R07.89 [...] software and direct typing Please excuse inadvertent community support specialist or typing errors, or uncorrected word substitutions Although every attempt has been made by the provider to proofread this document, occasional misspellings and typographical errors may still be present Due to the previous pandemic, and the use of personal protective equipment (PPE) This may decrease voice recognition accuracy Inadvertent community support specialist errors may occur 12/11/2024 Acquired hypothyroidism (ICD-10 [...] software and direct typing Please excuse inadvertent community support specialist or typing errors, or uncorrected word substitutions Although every attempt has been made by the provider to proofread this document, occasional misspellings and typographical errors may still be present Due to the previous pandemic, and the use of personal protective equipment (PPE) This may decrease voice recognition accuracy Inadvertent community support specialist errors may occur 12/11/2024 Bilateral lower extremity [...] software and direct typing Please excuse inadvertent community support specialist or typing errors, or uncorrected word substitutions Although every attempt has been made by the provider to proofread this document, occasional misspellings and typographical errors may still be present Due to the previous pandemic, and the use of personal protective equipment (PPE) This may decrease voice recognition accuracy Inadvertent community support specialist errors may occur 12/11/2024 Chronic venous insufficiency [...] software and direct typing Please excuse inadvertent community support specialist or typing errors, or uncorrected word substitutions Although every attempt has been made by the provider to proofread this document, occasional misspellings and typographical errors may still be present Due to the previous pandemic, and the use of personal protective equipment (PPE) This may decrease voice recognition accuracy Inadvertent community support specialist errors may occur 12/11/2024 Abnormal metabolic state [...] software and direct typing Please excuse inadvertent community support specialist or typing errors, or uncorrected word substitutions Although every attempt has been made by the provider to proofread this document, occasional misspellings and typographical errors may still be present Due to the previous pandemic, and the use of personal protective equipment (PPE) This may decrease voice recognition accuracy Inadvertent community support specialist errors may occur 12/11/2024 Pulmonary fibrosis (ICD-10 [...] software and direct typing Please excuse inadvertent community support specialist or typing errors, or uncorrected word substitutions Although every attempt has been made by the provider to proofread this document, occasional misspellings and typographical errors may still be present Due to the previous pandemic, and the use of personal protective equipment (PPE) This may decrease voice recognition accuracy Inadvertent community support specialist errors may occur 12/11/2024 Hypothyroidism, unspecified (ICD-10 [...] software and direct typing Please excuse inadvertent community support specialist or typing errors, or uncorrected word substitutions Although every attempt has been made by the provider to proofread this document, occasional misspellings and typographical errors may still be present Due to the previous pandemic, and the use of personal protective equipment (PPE) This may decrease voice recognition accuracy Inadvertent community support specialist errors may occur 12/11/2024 Chronic pain syndrome [...] software and direct typing Please excuse inadvertent community support specialist or typing errors, or uncorrected word substitutions Although every attempt has been made by the provider to proofread this document, occasional misspellings and typographical errors may still be present Due to the previous pandemic, and the use of personal protective equipment (PPE) This may decrease voice recognition accuracy Inadvertent community support specialist errors may occur PLAN OF TREATMENT Medication [...] Details Provider Name:RED BUTTS, 02/15/2025 11:00:00 AM, [address] [place] [address], [facility] [address], [place], [address], Procedure Notes * Category Sub-Category Detail Notes POC Hemoglobin A1C in office A1C 7.6 Progress Notes * JB ARGUELLO ADOB: 3 (69 yo F)Acc No.[id number]:12/11/2024 Progress Notes Patient:??JB ARGUELLO Provider:??RED BUTTS NP :1955?Age:69 Y?Sex:Fe male Date:12/11/2024 Address:[address] [place], [place] [address] Subjective: * Chief Complaints: * ?1. Pt [...] CPAP nightly ?was managed by pulmonology @ [facility], now with Izaiah CASE Pulmonology ?PFT's [...] spirometry and diffusion capacity in September 2023, Account Support Rep Dr. Bliss ?History of pulmonary fibrosis ?Also history of cerebral aneurysm, osteoarthritis and ?degenerative arthritis, SLE ?Bilingual Customer Service is Dr. Traore, on methylprednisolone, no longer [...] tablet Orally once weekly , Taking Nystatin 150412 UNIT/GM Ointment 1 application Externally Twice a [...] software and direct typing Please excuse inadvertent community support specialist or typing errors, or uncorrected word substitutions Although every attempt has been made by the provider to proofread this document, occasional misspellings and typographical errors may still be present Due to the previous pandemic, and the use of personal protective equipment (PPE) This may decrease voice recognition accuracy Inadvertent community support specialist errors may occur. Plan: * Treatment: 2.??Abnormal [...] DIFF/PLT) ?Lab: LIPID PANEL, STANDARD * Procedure Codes:??86525 GLYC ATED HEMOGLOBIN TEST, Modifiers: QW * Images: Billing Information: * Visit Code:?? 31097 Office Visit, Est Pt., Level 4. Modifiers: 25, SA * Procedure Codes:?? 27490 GLYCATED HEMOGLOBIN TEST. Modifiers: QW Care Plan [...] CPAP nightly was managed by pulmonology @ [facility], now with Izaiah CASE Pulmonology PFT's [...] spirometry and diffusion capacity in September 2023, Account Support Rep Dr. Bliss History of pulmonary fibrosis Also history of cerebral aneurysm, osteoarthritis and degenerative arthritis, SLE Bilingual Customer Service is Dr. Traore, on methylprednisolone, no longer [...] succinate 50 mg daily, Losartan 25mg sees [facility] CARDS Prior Cardiac Work-Up: - Echo (01/06/2022): [...] General Examination GENERAL APPEARANCE: in no ac martha distress, well developed, well nourished HEAD: normocephalic, [...]
--- OUTSIDE RECORDS SUMMARY | 2025-01-07 09:15 | XMS_ITS ---
Author Organization [facility] Address [address] [place] [address] Care Team Providers Care Leather Goods Assembler Name Role Phone HEATHER JONESDHEERAJ Unavailable [phone] RED BUTTS Unavailable [phone] REASON FOR REFERRAL Reason [facility] Diagnosis 1 Chronic stasis derma titis (I87.2) Referral Organization [facility] [address] Referring Provider First Name RED Referring Provider Last Name BECKIE Referring Provider Speciality Internal M edicine Referred Provider undefined Referred Provider Specialty Vascular Joao meaghan General Notes Pam Valadez 08:57:33 AM > Referral form faxed to [phone]. Clinical Notes Maria Guadalupe Robert 02:56:33 PM > Referral Priority Routine REASON FOR VISIT Referral - Vascular Encounters Encounter Location Date Provider Diagnosis [address] [facility] [address] [place] [address] 12/24/2024 RED BUTTS PLAN OF TREATMENT Referrals Referral Date Details [facility] Next Appt Details Provider Name:RED BUTTS, 02/15/2025 11:00:00 AM, [address] [facility], [address], [place], [address], Progress Notes * JB ARGUELLO ADOB: 3 (69 yo F)Acc No.[id number]:12/24/2024 Patient:??JB ARGUELLO :1955?Age:69 Y?Sex:Fe male Address:[address] [place] [address] Subjective: * Chief Complaints: * ?Referral - Vascular * Medical History:?? * Surgical History:?? * Hospitalization/Major Diagno stic Procedure:?? * Medications:?? Objective: Assessment: Plan: * Treatment: * Procedure Codes:?? * true * Date:?? Consultation Request Notes Referral Date Referring Provider Referred Provider Not claudia 12/29/2024 RED BUTTS undefined [facility]
--- OUTSIDE RECORDS SUMMARY | 2025-01-07 09:15 | XMS_ITS ---
Author Organization [facility] Address [address] [place] [address] Care Team Providers Care Sprinkler Tender Name Role Phone SHARAN JONES Unavailable [phone] RED BUTTS Unavailable [phone] REASON FOR VISIT Refill - Mounjaro and Metoprolol MEDICATIONS Medication SIG (Take, Route, Frequency, Duration) Notes Start Date End Date Status Metoprolol Succinate ER 50 MG 1 tablet Orally Once a day for 90 days 12/24/2024 Active Mounjaro 7.5 MG/0.5ML 7.5mg Subcutaneous weekly for 30 days 12/24/2024 Active Encounters Encounter Location Date Provider Diagnosis [address] [facility] [address] [place] [address] 12/24/2024 RED BUTTS PLAN OF TREATMENT Medication Medication Name Sig Start Date Stop Date Notes Metoprolol Succinate ER 50 MG 1 tablet Orally Once a day for 90 days 12/24/2024 Mounjaro 7.5 MG/0.5ML 7.5mg Subcutaneous weekly for 30 days 12/24/2024 Next Appt Details Provider Name:RED BUTTS, 02/15/2025 11:00:00 AM, [address], [address], [place], [address], Progress Notes * JB ARGUELLO ADOB: (69 yo F)Acc No.[id number]:12/24/2024 Patient:??JB ARGUELLO :1955?Age:69 Y?Sex:Fe male Address:[address] [facility] [place] [address] * Refills?? Start Mounjaro Solution Auto-injector, 7.5 MG/0.5ML, Subcutaneous, 4 Pen Needle, 7.5mg, weekly, 30 days, Refills=3 Start Metoprolol Succinate ER Tablet Extended Release 24 Hour, 50 MG, Orally, 90 Tablet, 1 tablet, Once a day, 90 days, Refills=1 * true * Date:??
--- OUTSIDE RECORDS SUMMARY | 2025-01-07 09:15 | XMS_ITS | Clinical Summary ---
Author Organization [facility] Address [address] [place] [address] Care Team Providers Care Rn Hedis Name Role Phone Shawna Ac MD Primary Care Provider [phone] Allergies Active Allergy Reactions Criticality Noted Date [...] age to complete this topic Care Teams Rn Hedis Relationship Specialty Start Date End Date Shawna Ac MD [address] [place] [address] PCP - General Family Medicine 01/19/22
--- OUTSIDE RECORDS SUMMARY | 2025-01-07 09:15 | XMS_ITS | Clinical Summary ---
Author Organization [facility], Address [address] [place] [address] Phone Care Team Providers Care Systems Planner Name Role Phone Shawna Ac MD Primary Care Provider [phone] Allergies Active Allergy Reactions Criticality Noted Date [...] 10/17/2020 Hyperlipidemia 10/17/2020 Essential hypertension 10/17/2020 Immunizations Immunization Administration Dates Next Due Influenza Vaccine, Quadrivalent, [...] Colorectal Cancer Screening: Sigmoidoscopy 2002 Pneumococcal Vaccine: 50+ Ye ars (1 of 1 - PCV) 2003 Diabetes: Hemoglobin A1C 10/16/2020 Diabetes: Ophthalmology Exam 10/16/2020 Diabetes: Pedal Pulse Checked 10/16/2020 Diabetes: Sensory Foot Exam 10/16/2020 Diabetes: Visual Foot Exam 10/16/2020 Influenza Vaccine (Season Ended) 2025 06/18/20 20 Hepatitis B Vaccine Aged Out No longe r eligible based on patient's age to complete this topic Insurance Medicare [facility] Care Teams Systems Planner Relationship Specialty Start Date End Date Shawna Ac MD [address] [place] [address] PCP - General 09/26/20
== END 2025-01-07 09:26 | disposition home or self-care (01) ==
LOC: HO.HPS 08:47
PROVIDERS: PCP Nurse Practitioner Acute Care; Visit Provider Hospitalist
DX: J84.10 Pulmonary fibrosis, unspecified (principal); M32.9 Systemic lupus erythematosus, unspecified; J45.20 Mild intermittent asthma, uncomplicated; D80.1 Nonfamilial hypogammaglobulinemia; G47.33 Obstructive sleep apnea (adult) (pediatric); R04.2 Hemoptysis
CPT/HCPCS: 99214; G2211

== ENCOUNTER → 2025-01-07 08:46 | Outpatient (BNVA) | payer MEDICARE, BC, SELFPAY | PROVIDERS: PCP Nurse Practitioner Acute Care; Visit Provider Hospitalist | DX: J84.10 Pulmonary fibrosis, unspecified (principal); J98.4 Other disorders of lung; J45.20 Mild intermittent asthma, uncomplicated; R04.2 Hemoptysis; M32.9 Systemic lupus erythematosus, unspecified; D80.1 Nonfamilial hypogammaglobulinemia; G47.33 Obstructive sleep apnea (adult) (pediatric) | CPT/HCPCS: 99212 ==

== ENCOUNTER 2025-01-27 11:19 | Outpatient (REF) | payer MEDICARE, BC, SELFPAY ==
--- NOTE | ~2025-01-27 | CT_ITS ---
EXAMINATION: CT ANGIOGRAM CHEST CLINICAL INFORMATION: Hemoptysis. COMPARISON: 11/25/[address] chest 02/28/2024. TECHNIQUE: Multiple axial images were obtained through the chest after the administration of 70 mL of Omnipaque 350 intravenous contrast. Extensive vascular post-processing including two-dimensional and three-dimensional reformatted images were created and reviewed on an independent workstation. This CT examination was performed using dose optimization techniques as appropriate, variously including the following: *Automated exposure control *Adjustment of mA and/or kV according to patient size (this includes techniques or standardized protocols for targeted exams where dose is matched to indication/reason for exam; i.e. extremities or head) *Use of iterative reconstruction technique FINDINGS: VASCULAR: There is no evidence of pulmonary embolus. Main pulmonary artery is normal in size. There is no evidence of right heart strain. There is no contrast reflux into the hepatic IVC. The aorta is normal in caliber and course with minimal atheromatous calcification. No aneurysm or acute aortic syndrome. The great vessels branch normally, with mild atheromatous calcification. No stenoses. The heart size is moderately enlarged. There is no pericardial effusion. There is mild calcification of the mitral annulus. There is a right-sided chest port, which terminates in the right atrium. LUNGS: There is an elevated right hemidiaphragm. Lungs demonstrate mild hypoventilatory changes, particularly in the lower lobes bilaterally. There is mild mosaic attenuation in the mid and upper lungs, also likely hypoventilatory. There is inward bowing of the posterior membranous trachea. There is no consolidation or evidence of pneumonia. There is no evidence of suspicious pulmonary nodule. There is no effusion or pneumothorax. MEDIASTINUM: There is prominent mediastinal fat present. There is no mass or lymphadenopathy. The esophagus is normal. Partially imaged thyroid is normal. CHEST WALL: No mass or adenopathy. IMAGED UPPER ABDOMEN: There are numerous cholecystectomy clips present. There is mild hepatic enlargement with diffuse fatty infiltration. OSSEOUS STRUCTURES: No suspicious lytic or blastic bone lesion. CT/CT angio chest PE protocol IMPRESSION: 1. No evidence of pulmonary embolus. 2. No evidence of acute aortic syndrome. 3. Moderate cardiomegaly. 4. Lungs demonstrate mild hypoventilatory changes, particularly in the lower lobes with mild mosaic attenuation in the mid and upper lungs, also likely hypoventilatory. Within these confines, no active lung disease. 5. Hepatomegaly and fatty infiltration of the liver. Electronically signed by: Omar Johnson MD 01/27/2025 03:18 PM EDT RP
--- OUTSIDE RECORDS SUMMARY | 2025-01-27 12:20 | XMS_ITS | Clinical Summary ---
Author Organization [facility] Address [address] [place] [address] Care Team Providers Care Director Community Organization Name Role Phone Shawna Ac MD Primary Care Provider [phone] Allergies Active Allergy Reactions Criticality Noted Date [...] age to complete this topic Care Teams Director Community Organization Relationship Specialty Start Date End Date Shawna Ac MD [address] [place] [address] PCP - General Family Medicine 01/19/22
--- OUTSIDE RECORDS SUMMARY | 2025-01-27 12:20 | XMS_ITS | Clinical Summary ---
Author Organization [facility] Address [address] [place] [address] Care Team Providers Care Corporate Quality Engineer Name Role Phone Aleksandr Ortiz MD Primary Care Provider [phone] Surgical History Surgery Date Site/Laterality Comments CHOLECYSTECTOMY PROCEDURE: HISTORICAL CHOLECYSTECTOMY TONSILLECTOMY PROCEDURE: HISTORICAL TONSILLECTOMY; COMMENT: and adenoidectomy HYSTERECTOMY PROCEDURE: HISTORICAL HYSTERECTOMY; COMMENT: CHARLEY BSO OTHER SURGICAL HISTORY PROCEDURE: HISTORY OTHER; COMMENT: Surgery for relief elev intraocular press cyclocryotherapy APPENDECTOMY PROCEDURE: HISTORICAL APPENDECTOMY; COMMENT: with the [facility]. OTHER SURGICAL HISTORY PROCEDURE: ---- OTHER [...] Comments: Jayesh. Managed by Dr Enriqueta Gabriel home health administrator in [place] Substance dependence, contin uous ([facility] V24, [facility] V28) 12/10/2017 DX:Substance dependence, co ntinuous ([facility]); COMMENT: Opioids Paresthesia of both legs 06/24/2017 DX:Pare sthesia of both legs Vitamin D deficiency 11/11/2017 DX:Vitamin D deficiency Systemic lupus erythematosus ([facility] V24, [facility] V28) 05/05/2018 DX:Systemic lupus erythemato erica ([facility]); COMMENT: Comments: Was seeing Dr Moreno Raynaud's disease 02/11/2018 DX:Raynaud's d isease 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 in [place] put her on BMP a novel medication that according to her caused damage and resulted in surgeries. Her pain management doctor is Dr Montgomery [phone] Staff[address] Coordinator Dr Gmoez [phone]. Diabetes mellitus type 2, un complicated ([facility] V24, [facility] V28) 05/05/2018 DX:Diabetes mellitus type 2 , [...] AM EDT Narrative 12/01/2018 4:18 PM EDT [facility] Diagnostic Imaging Department [address] [place] [address] Patient: ??NAHEED LUNA ?/Age/Sex: 1955 - 63 - F Unit#: ??[id number] ? Location/Status: ??SPDIMAM/REG CLI ? Mnemonic/Ordering Site: ??DIGSC/SPMAM Ordering Physician: ??JONAS AC MD [facility] Screening Digital - 12/01/18 - 1139 EXAM: [facility] Screening Digital EXAM DATE AND TIME: 12/01/2018 11:40 AM HISTORY: ??Screening. COMPARISON: ??02/13/17, 04/09/13 TECHNIQUE: CC and MLO views of both breasts were obtained using full field digital mammography. Bilateral digital breast tomosynthesis was performed in the MLO projection. Computer aided detection with the Beanstalk Tax 7.2-H was employed. TISSUE DENSITY: a. The [...] Routine screening mammogram BILATERAL in 1 year. [address], [address]2837 1742F, 5874F Dictating Physician: ??URVASHI IBARRA MD Electronically Signed by: ??URVASHI IBARRA MD Dic Date/Time: ??12/01/18 5585 Sign date/Time: ??12/01/18 6647 Procedure Note Urvashi Ibarra MD - 09/05/2022 [facility] Diagnostic Imaging Department [address] [place], [place] [address] Patient: NAHEED LUNA /Age/Sex: 1955 - 63 - F Unit#: [id number] Location/Status: [facility] CLI Mnemonic/Ordering Site: [facility] Ordering Physician: JONAS AC MD [facility] Screening Digital - 12/01/18 - 1139 EXAM: [facility] Screening Digital EXAM DATE AND TIME: 12/01/2018 11:40 AM HISTORY: Screening. COMPARISON: 02/13/17, 04/09/13 TECHNIQUE: CC and MLO views of both breasts were obtained using fullfield digital mammography. Bilateral digital breast tomosynthesis was performedin the MLO projection. Computer aided detection with the Beanstalk Tax 7.2-Hwas employed. TISSUE DENSITY: a. The breasts [...] Routine screening mammogram BILATERAL in 1 year. [address], 68677 3342F, 7025F Dictating Physician: URVASHI IBARRA MD Electronically Signed by: URVASHI IBARRA MD Dic Date/Time: 12/01/18 1552 Sign date/Time: 12/01/18 1618 us Jonas Ac MD IMG BI PROCEDURES Final Res ult from Last 3 Months or Most Recently Relevant to Health Maintenance Care Teams Corporate Quality Engineer Relationship Specialty Start Date End Date Aleksandr Ortiz MD PCP - General 08/08/22
--- OUTSIDE RECORDS SUMMARY | 2025-01-27 12:20 | XMS_ITS | Clinical Summary ---
Author Organization [facility], Address [address] [place] [address] Phone Care Team Providers Care Icu Staff Nurse Name Role Phone Shawna Ac MD Primary Care Provider [phone] Allergies Active Allergy Reactions Criticality Noted Date [...] Insurance Medicare [facility] Care Teams Icu Staff Nurse Relationship Specialty Start Date End Date Shawna Ac MD [address] [place] [address] PCP - General 09/26/20
--- OUTSIDE RECORDS SUMMARY | 2025-01-27 12:20 | XMS_ITS ---
Author Organization [facility] [facility] Address [address] [place] [address] Care Team Providers Care Track Maintainer Name Role Phone SHARAN JONES Unavailable [phone] RED BUTTS Unavailable [phone] Encounters Encounter Location Date Provider Diagnosis [facility] [address] [place] [address] 11/04/2024 RED BUTTS Plan Of Treatment Next Appt Details Provider Name:RED BUTTS, 02/15/2025 11:00:00 AM, [address], [address], [place], [address], Progress Notes * JB ARGUELLO ADOB: 3 (69 yo F)Acc No.[id number]:11/04/2024 Progress Notes Patient:?JB ARGUELLO Provider:?RED BUTTS NP :1955???Age:69 Y???Sex:Female D ate:11/04/2024 Address:[place] Subjective: * Chief Complaints: * ??? * Medical History:? Objective: * Vitals:? Assessment: Plan: * Treatment: * Billing Information: * Visit Code:? * Procedure Codes:? Care Plan Details* * Electronic signature of RICHARD BUTTS on 01/27/2025 at 12:19 PM EDT Sign off status: Pending * Provider:?RED BUTTS NP Date:?2024 Generated for Mariii bev/Angelina/eTransmitting on:?01/27/2025 12:19 PM EDT
--- OUTSIDE RECORDS SUMMARY | 2025-01-27 12:20 | XMS_ITS | Patient Health Record ---
Author [facility] Address [address] [facility] [place] [address] Care Team Providers Care Champion Of Sustainable Design Name Role Phone Yashira THOMAS, Shawna Primary Care Provider Steph Dotson Unavailable [phone] Allergies Allergen (clinical drug ingredient) Drug/Non Drug Allergy documented on EMR Reaction Allergy Type Onset Date Status Adhesive Unknown Allergy Active Shellfish (FN) Shellfish-derived Products Unknown Drug Allergy Active Substance with 1-rzxlscp-4-methylgluta ryl-coenzyme A reductase inhibitor mechanism of action [...] Problem Acquired hammer toe of right foot (9692690730529477 ) Other hammer toe(s) (acquired), right foot (M20.41) Active confirmed Problem Acquired hammer toe of left foot (9934785441133533 ) Other hammer toe(s) (acquired), left foot (M20.42) Active confirmed Problem Polyneuropathy due to type 2 diabetes mellitus (619865500) Type 2 diabetes mellitus with diabetic polyneuropathy (E11.42) Active confirmed Plan Of Treatment Pending Test Test Name Order Date 32264-ARXJRTW NAIL, 6 OR MORE 09/27/2020 55801-MWSCFSH NAIL, 1-5 11/29/2020 43243-Cshmksiq Plate 09/27/2020 17208-QVLF SKIN LESIONS, OVER 4 09/27/19 21 53100-KAHZ SKIN LESIONS, OVER 4 11/30/19 21 C4253-RXMIVOTU DYSTROPHIC NAILS ANY # Insurance Providers Payer Name Payer Address Payer Phone Subscriber Number Group Number Insured Name Patient Relationship to Insured Coverage Start Date Coverage End Date Medicare [employer] [address] [place] [address] [id number] Naheed Luna Self - patient is the insured [facility] [address] [place] [address] [id number] Naheed Luna Self - patient is the [...] Surgery Date(Month/Year) tonsillectomy and adenoidectomy 1962 D&C 7712-4549 hysterectomy 1978 oopherectomy 1978 appendectomy 1978 cholecystectomy 1979 disc surgeryC-5,C-6,SI,L5 S-1 Vplate ant erior 2002,2006,2008 carpal tunnel surgery 2003,2005 Hospitalization History Reason Date(Month/Year) [facility] hypokalemia, hypo magnesemia, thyroi d toxicosis 09/2020
--- OUTSIDE RECORDS SUMMARY | 2025-01-27 12:20 | XMS_ITS | Patient Health Record ---
Author Organization [facility] Address [address] [place] [address] Care Team Providers Care Composition Worker Name Role Phone SHARAN JONES Unavailable [phone] BRENDARED GIL Unavailable [phone] Allergies Allergen (clinical drug ingredient) Drug/Non Drug Allergy documented on EMR Reaction Allergy Type Onset Date Status Substance with 2-ucrhxrn-2-methylgl utaryl-coenzyme A reductase inhibitor mechanism of action (substance) statins (uncoded) Unknown Allergy Active denosumab Prolia stomach upset Drug Allergy Act jere azithromycin Azithromycin Unknown Drug Allergy A ctive ciprofloxacin Ciprofloxacin Unknown Drug Allergy Active Results Component Value Reference Range Notes [id number] Reviewed date:09/30/2024 08:20:48 AM Interpretation: Performing Lab:[facility], [address] [place] [address], Phone - [phone], Director - Tessadry Notes/Report: TSH 6.050 0.450-4.500 uIU/mL Hemoglobin [id number] Reviewed date:09/30/2024 08:20:48 AM Interpretation: Performing Lab:[facility], [address] [place] [address], Phone - [phone], Director - MDJodry Notes/Report: Hemoglobin A1c 9.1 4.8-5.6 % . Prediabetes: 5.7 - 6.4 Diabetes: >6.4 Glycemic control for adults with diabetes: <7.0 Thyroxine (T4)-[id number] Reviewed date:09/30/2024 08:20:48 AM Interpretation: Performing Lab:[facility], [address] [place] [address], Phone - [phone], Director - MDJodry Notes/Report: Thyroxine (T4) 10.6 4.5-12.0 ug/dL [id number] Reviewed date:10/21/2024 08:32:30 AM Interpretation: Performing Lab:[facility] [place], [address] [facility], [place], Phone - [phone], Director - Lalo Notes/Report: TSH 2.810 0.450-4.500 uIU/mL Hemoglobin [id number] Reviewed date:10/21/2024 08:32:30 AM Interpretation: Performing Lab:[facility] [place], [address] [facility], [place], Phone - [phone], Director - Lalo Notes/Report: Hemoglobin A1c 8.9 4.8-5.6 % . Prediabetes: 5.7 - 6.4 Diabetes: >6.4 Glycemic control for adults with diabetes: <7.0 Thyroxine (T4)-136800 Reviewed date:10/21/2024 08:32:30 AM Interpretation: Performing Lab:[facility] [place], [address] [facility], [place], Phone - [phone], Director - Lalo Notes/Report: Thyroxine (T4) 11.2 4.5-12.0 ug/dL Reason For Referral Reason abnormal EKG and kallie st pain with [facility] Diagnosis 1 Abnormal EKG (R94.31 ) Diagnosis 2 Chest pain in adult (R07.9) Referral Organization [facility] Referring Provider First Name SHARAN Referring Provider Last Name KAREN Referring Provider Speciality Internal M edicine Referred Provider Specialty Cardiology General Notes [address] , [address], [place], [place], P [phone], F [phone] Clinical Notes Amy Gonzalez 2023 02:16:15 PM >, Amy Gonzalez 03/10/2024 11:26:47 AM >Referral info faxed to [facility] cards with specialty referral form., [...] asking for referral to be sent to [facility] with Dr. Lozano Amy Gonzalez 04/28/2024 01:45:09 PM >Called and spoke to Samara, confirmed that Naheed wants a second opinion and does not want to stay in [facility] system. Samara states referral is confirmed, books are not open until September and she will contact her then to schedule. TY. Referral Priority Routine Reason [facility] Diagnosis 1 Chronic stasis derma titis (I87.2) Referral Organization [facility] 119 Referring Provider First Name RED Referring Provider Last Name BECKIE Referring Provider Speciality Internal M edicine Referred Provider undefined Referred Provider Specialty Vascular Joao meaghan General Notes Pam Valadez 08:57:33 AM > Referral form faxed to [phone]. Clinical Notes Maria Guadalupe Robert 02:56:33 PM >, Maria Guadalupe Robert 01/19/2025 02:09:58 PM > The patient was seen on 01/07 and have a follow up appointment on 03/10 Referral Priority Routine Medications Medication SIG (Take, Route, Frequency, Duration) [...] MG 1 tablet Orally Once a day since being in ED on saturday Not-Taking Mounjaro 2.5 MG/0.5ML 2.5mg Subcutaneous weekly [...] DAY Oral for 90 Days Not-Taking Nystatin 516408 UNIT/GM 1 application Externally Twice a day [...] other day for 90 days 09/03/2024 Not-Taking Immunizations Vaccine Route Administration Date Status Comme nts Influenza, high dose seasonal IM Intramuscular 06/18/2023 Administered Pneumococcal polysaccharide PPV23 IM Intramuscular 06/18/2023 Administered Social History Tobacco Use: Social History Observation Description Date Details (start date - stop date) Former Smoker NA - NA Tobacco Use/Smoking Question Answer Notes Are you a former smoker Problems Problem Type SNOMED Code ICD Code Onset Dates Problem Status W/U Status Risk Notes Problem Hypothyroidism (65104176) Hypothyroidism, unspecified (E03.9) Active confirmed Problem Obesity (244956417) Other obesity (E66.8) Active confirmed Problem 407264080 Mixed hyperlipidemia (E78.2) Active confirmed Problem Hyperlipidemia (48725335) Hyperlipidemia, unspecified (E78.5) Active confirmed Problem 96729988 Other chronic pain (G89.29) Active confirmed Problem Chronic pain syndrome (654567733) Chronic pain syndrome (G89.4) Active confirmed Problem Systemic lupus erythematosus (08337658) Systemic lupus erythematosus, unspecified (M32.9) Active confirmed Problem 35366295 Age-related osteoporosis without current pathological fracture (M81.0) Active confirmed Problem Lipid screening (572412263) Encounter for screening for lipoid disorders (Z13.220) Active confirmed Problem Body mass index 35.00 to 39.99 (214614637194004) Body mass index (BMI) 38.0-38.9, adult (Z68.38) Active confirmed Problem Body mass index 35.00 to 39.99 (756686193751760) Body mass index (BMI) 39.0-39.9, adult (Z68.39) Active confirmed Problem 61008989 Chronic idiopathic constipation (K59.04) Active confirmed Problem 430772645 Morbid obesity (E66.01) Active confirmed Problem Disorder due to type 2 diabetes mellitus (040665878) Type 2 diabetes mellitus with complication, unspecified whether termite inspector insulin use (E11.8) Active confirmed Problem 496270223 Acquired hypothyroidism (E03.9) Active confirmed Problem Adult health examination (440193324) Adult general medical exam (Z00.00) Active confirmed Problem Vitamin D deficiency (75168375) Vitamin D deficiency (E55.9) Active confirmed Problem Essential hypertension (99508605) Hypertension, unspecified type (I10) Active confirmed Problem 834928319 Type 2 diabetes mellitus without complication, without long-term current use of insulin (E11.9) Active confirmed Problem Obesity (037844766) Obesity (BMI 30-39.9) (E66.9) Active confirmed Problem 952869372 Interstitial terry g disease with progressive fibrotic phenotype in diseases classified elsewhere (J84.170) Active confirmed Problem Obese class II (932251389972433) BMI 35.0-35.9,adult (Z68.35) Active confirmed Problem 88355544 Pulmonary fibrosis (J84.10) Active confirmed Problem 932223301 Body mass index [BMI] 40.0-44.9, adult (Z68.41) Active confirmed Problem 01877507 Chronic venous insufficiency (I87.2) Active confirmed Problem Avitaminosis D (30353329) Avitaminosis D (E55.9) Active confirmed Problem Abnormal metabolic state due to diabetes mellitus (169918922) Abnormal metabolic state due to diabetes mellitus (E11.9) Active confirmed Problem 298324850 Interstitial cystitis (N30.10) Active confirmed Problem 22337882 Other osteoporosis with current pathological fracture with routine healing, subsequent encounter (M80.80XD) Active confirmed Problem Peripheral venous insufficiency (48264740) Chronic stasis dermatitis (I87.2) Active confirmed Vital Signs Heart Rate 80 /min 12/11/2024 Oximetry 98 % 12/11/2024 Blood pressure diastolic 78 mm Hg 12/11/2024 Height 66 in 12/11/2024 Blood pressure systolic 120 mm Hg 12/11/2024 Weight 250 lbs 12/11/2024 BMI 40.35 kg/m2 12/11/2024 Encounters Encounter Location Date Provider Diagnosis [facility] [address] [place] [address] 03/02/2024 HEATHERDHEERAJ JONES Age-related osteoporosis without current pathological fracture M81.0 ; Annual physical exam Z00.00 ; Type 2 diabetes mellitus without complication, without long-term current use of insulin E11.9 ; Hypothyroidism, unspecified type E03.9 ; Hypertension, unspecified type I10 ; Lupus M32.9 ; Pulmonary fibrosis, unspecified J84.10 and Fungal infection B49 [facility] [address] [place] [address] 07/08/2024 SHARAN JONES Chronic pain syndrom e G89.4 ; Type 2 diabetes mellitus with complication, unspecified whether termite inspector insulin use E11.8 ; Hyperlipidemia, unspecified E78.5 ; Age-related osteoporosis without current pathological fracture M81.0 and Lupus M32.[address] [facility] [address] 09/15/2024 [place] Atypical chest pain R07.89 ; Bilateral lower extremity edema R60.0 ; Chronic venous insufficiency I87.2 ; Acquired hypothyroidism E03.9 ; Abnormal metabolic state due to diabetes mellitus E11.9 and Hypothyroidism, unspecified E03.[address] [facility] [address] 10/06/2024 [place] Atypical chest pain R07.89 ; Acquired hypothyroidism E03.9 ; Bilateral lower extremity edema R60.0 ; Chronic venous insufficiency I87.2 ; Abnormal metabolic state due to diabetes mellitus E11.9 ; Pulmonary fibrosis J84.10 and Hypothyroidism, unspecified E03.9 [facility] [address] 12/11/2024 [place] Atypical chest pain R07.89 ; Acquired hypothyroidism E03.9 ; Bilateral lower extremity edema R60.0 ; Chronic venous insufficiency I87.2 ; Abnormal metabolic state due to diabetes mellitus E11.9 ; Pulmonary fibrosis J84.10 ; Hypothyroidism, unspecified E03.9 and Chronic pain syndrome G89.4 [facility] [address] [place] [address] 04/08/2024 TALAL KAREN [facility] [address] 04/24/2024 TALAL JONES [facility] [address] 07/08/2024 TALAL KAREN [facility] [address] 07/08/2024 SHARAN JONES [facility] [address] [place] [address] 07/10/2024 SHARAN JONES Chronic pain syndrom e G89.[address] [facility] [address] [place] [address] 07/28/2024 SHARAN JONES [address] [place] [address] 08/03/[address] [facility] [address] [place] [address] 09/01/[address] [facility] [address] [place] [address] 09/14/[address] [facility] [address] [place] [address] 09/17/2024 [place] Atypical chest pain R07.[address] [facility] [address] [place] [address] 09/18/2024 [place] Atypical chest pain R07.[address] [facility] [address] [place] [address] 09/28/[address] [facility] [address] [place] [address] 10/14/2024 [place] [address] [place] [address] 10/15/[address] [facility] [address] [place] [address] 10/15/[address] [facility] [address] [place] [address] 10/22/2024 [place] [address] [place] [address] 12/24/2024 [place] [address] [place] [address] 12/24/[address] [facility] [address] [place] [address] 01/07/2025 [place] [address] [place] [address] 09/18/2024 SHARAN JONES Assessments Encounter Date Diagnosis (ICD Code) Assessment Notes Treatment Notes Treatment Clinical Notes [...] 150mg PO once every 2 weeks. Nystatin 701214 UNIT/GM Ointment 1 application Externally Twice a [...] 150mg PO once every 2 weeks. Nystatin 860801 UNIT/GM Ointment 1 application Externally Twice a [...] we will send a prescription to [facility]. She wants a powder and a cream and we will prescribe both of them. She will get a new napper grinder and might need to increase dose of beta-george in setting of arrhythmias. Please follow-up on oncology notes consider repeat EKGs regularly to monitor QT intervals blood work and follow-up advised 07/08/2024 Type 2 diabetes mellitus with complication, unspecified whether termite inspector insulin use (ICD-10 - E11.8) Patient with [...] we will send a prescription to [facility]. She wants a powder and a cream and we will prescribe both of them. She will get a new napper grinder and might need to increase dose of [...] software and direct typing Please excuse inadvertent dampproofer or typing errors, or uncorrected word substitutions Although every attempt has been made by the provider to proofread this document, occasional misspellings and typographical errors may still be present Due to the previous pandemic, and the use of personal protective equipment (PPE) This may decrease voice recognition accuracy Inadvertent dampproofer errors may occur 09/15/2024 Bilateral lower extremity [...] software and direct typing Please excuse inadvertent dampproofer or typing errors, or uncorrected word substitutions Although every attempt has been made by the provider to proofread this document, occasional misspellings and typographical errors may still be present Due to the previous pandemic, and the use of personal protective equipment (PPE) This may decrease voice recognition accuracy Inadvertent dampproofer errors may occur 09/17/2024 Atypical chest pain (ICD-10 - R07.89) 09/18/2024 Atypical chest pain (ICD-10 - R07.89) 10/06/2024 Acquired hypothyroidism (ICD-10 - E03.9) Acute [...] software and direct typing Please excuse inadvertent dampproofer or typing errors, or uncorrected word substitutions Although every attempt has been made by the provider to proofread this document, occasional misspellings and typographical errors may still be present Due to the previous pandemic, and the use of personal protective equipment (PPE) This may decrease voice recognition accuracy Inadvertent dampproofer errors may occur 10/06/2024 Atypical chest pain [...] software and direct typing Please excuse inadvertent dampproofer or typing errors, or uncorrected word substitutions Although every attempt has been made by the provider to proofread this document, occasional misspellings and typographical errors may still be present Due to the previous pandemic, and the use of personal protective equipment (PPE) This may decrease voice recognition accuracy Inadvertent dampproofer errors may occur 12/11/2024 Atypical chest pain (ICD-10 - R07.89) [...] software and direct typing Please excuse inadvertent dampproofer or typing errors, or uncorrected word substitutions Although every attempt has been made by the provider to proofread this document, occasional misspellings and typographical errors may still be present Due to the previous pandemic, and the use of personal protective equipment (PPE) This may decrease voice recognition accuracy Inadvertent dampproofer errors may occur 12/11/2024 Acquired hypothyroidism (ICD-10 [...] software and direct typing Please excuse inadvertent dampproofer or typing errors, or uncorrected word substitutions Although every attempt has been made by the provider to proofread this document, occasional misspellings and typographical errors may still be present Due to the previous pandemic, and the use of personal protective equipment (PPE) This may decrease voice recognition accuracy Inadvertent dampproofer errors may occur 10/06/2024 Bilateral lower extremity [...] software and direct typing Please excuse inadvertent dampproofer or typing errors, or uncorrected word substitutions Although every attempt has been made by the provider to proofread this document, occasional misspellings and typographical errors may still be present Due to the previous pandemic, and the use of personal protective equipment (PPE) This may decrease voice recognition accuracy Inadvertent dampproofer errors may occur 09/15/2024 Chronic venous insufficiency [...] software and direct typing Please excuse inadvertent dampproofer or typing errors, or uncorrected word substitutions Although every attempt has been made by the provider to proofread this document, occasional misspellings and typographical errors may still be present Due to the previous pandemic, and the use of personal protective equipment (PPE) This may decrease voice recognition accuracy Inadvertent dampproofer errors may occur 12/11/2024 Bilateral lower extremity [...] software and direct typing Please excuse inadvertent dampproofer or typing errors, or uncorrected word substitutions Although every attempt has been made by the provider to proofread this document, occasional misspellings and typographical errors may still be present Due to the previous pandemic, and the use of personal protective equipment (PPE) This may decrease voice recognition accuracy Inadvertent dampproofer errors may occur 07/08/2024 Hyperlipidemia, unspecified (ICD-10 [...] of them. She will get a new napper grinder and might need to increase dose of [...] 150mg PO once every 2 weeks. Nystatin 114223 UNIT/GM Ointment 1 application Externally Twice a [...] 150mg PO once every 2 weeks. Nystatin 823797 UNIT/GM Ointment 1 application Externally Twice a [...] of them. She will get a new napper grinder and might need to increase dose of [...] software and direct typing Please excuse inadvertent dampproofer or typing errors, or uncorrected word substitutions Although every attempt has been made by the provider to proofread this document, occasional misspellings and typographical errors may still be present Due to the previous pandemic, and the use of personal protective equipment (PPE) This may decrease voice recognition accuracy Inadvertent dampproofer errors may occur 10/06/2024 Chronic venous insufficiency [...] software and direct typing Please excuse inadvertent dampproofer or typing errors, or uncorrected word substitutions Although every attempt has been made by the provider to proofread this document, occasional misspellings and typographical errors may still be present Due to the previous pandemic, and the use of personal protective equipment (PPE) This may decrease voice recognition accuracy Inadvertent dampproofer errors may occur 09/15/2024 Acquired hypothyroidism (ICD-10 [...] software and direct typing Please excuse inadvertent dampproofer or typing errors, or uncorrected word substitutions Although every attempt has been made by the provider to proofread this document, occasional misspellings and typographical errors may still be present Due to the previous pandemic, and the use of personal protective equipment (PPE) This may decrease voice recognition accuracy Inadvertent dampproofer errors may occur 10/06/2024 Abnormal metabolic state [...] software and direct typing Please excuse inadvertent dampproofer or typing errors, or uncorrected word substitutions Although every attempt has been made by the provider to proofread this document, occasional misspellings and typographical errors may still be present Due to the previous pandemic, and the use of personal protective equipment (PPE) This may decrease voice recognition accuracy Inadvertent dampproofer errors may occur 12/11/2024 Abnormal metabolic state [...] software and direct typing Please excuse inadvertent dampproofer or typing errors, or uncorrected word substitutions Although every attempt has been made by the provider to proofread this document, occasional misspellings and typographical errors may still be present Due to the previous pandemic, and the use of personal protective equipment (PPE) This may decrease voice recognition accuracy Inadvertent dampproofer errors may occur 07/08/2024 Lupus (ICD-10 - [...] of them. She will get a new napper grinder and might need to increase dose of [...] 150mg PO once every 2 weeks. Nystatin 989331 UNIT/GM Ointment 1 application Externally Twice a [...] 150mg PO once every 2 weeks. Nystatin 941977 UNIT/GM Ointment 1 application Externally Twice a [...] software and direct typing Please excuse inadvertent dampproofer or typing errors, or uncorrected word substitutions Although every attempt has been made by the provider to proofread this document, occasional misspellings and typographical errors may still be present Due to the previous pandemic, and the use of personal protective equipment (PPE) This may decrease voice recognition accuracy Inadvertent dampproofer errors may occur 09/15/2024 Abnormal metabolic state [...] software and direct typing Please excuse inadvertent dampproofer or typing errors, or uncorrected word substitutions Although every attempt has been made by the provider to proofread this document, occasional misspellings and typographical errors may still be present Due to the previous pandemic, and the use of personal protective equipment (PPE) This may decrease voice recognition accuracy Inadvertent dampproofer errors may occur 10/06/2024 Pulmonary fibrosis (ICD-10 [...] software and direct typing Please excuse inadvertent dampproofer or typing errors, or uncorrected word substitutions Although every attempt has been made by the provider to proofread this document, occasional misspellings and typographical errors may still be present Due to the previous pandemic, and the use of personal protective equipment (PPE) This may decrease voice recognition accuracy Inadvertent dampproofer errors may occur 12/11/2024 Hypothyroidism, unspecified (ICD-10 [...] software and direct typing Please excuse inadvertent dampproofer or typing errors, or uncorrected word substitutions Although every attempt has been made by the provider to proofread this document, occasional misspellings and typographical errors may still be present Due to the previous pandemic, and the use of personal protective equipment (PPE) This may decrease voice recognition accuracy Inadvertent dampproofer errors may occur 09/15/2024 Hypothyroidism, unspecified (ICD-10 [...] software and direct typing Please excuse inadvertent dampproofer or typing errors, or uncorrected word substitutions Although every attempt has been made by the provider to proofread this document, occasional misspellings and typographical errors may still be present Due to the previous pandemic, and the use of personal protective equipment (PPE) This may decrease voice recognition accuracy Inadvertent dampproofer errors may occur 03/02/2024 Pulmonary fibrosis, unspecified [...] 150mg PO once every 2 weeks. Nystatin 276175 UNIT/GM Ointment 1 application Externally Twice a [...] 150mg PO once every 2 weeks. Nystatin 659430 UNIT/GM Ointment 1 application Externally Twice a [...] software and direct typing Please excuse inadvertent dampproofer or typing errors, or uncorrected word substitutions Although every attempt has been made by the provider to proofread this document, occasional misspellings and typographical errors may still be present Due to the previous pandemic, and the use of personal protective equipment (PPE) This may decrease voice recognition accuracy Inadvertent dampproofer errors may occur 10/06/2024 Hypothyroidism, unspecified (ICD-10 [...] software and direct typing Please excuse inadvertent dampproofer or typing errors, or uncorrected word substitutions Although every attempt has been made by the provider to proofread this document, occasional misspellings and typographical errors may still be present Due to the previous pandemic, and the use of personal protective equipment (PPE) This may decrease voice recognition accuracy Inadvertent dampproofer errors may occur Plan Of Treatment Pending Test Test Name Order Date Hemoglobin A1c 07/15/2019 Lipid Panel 07/15/2019 Comp. Metabolic Panel (14) 07/15/2019 CBC 07/15/2019 Bone Density 06/22/2022 Urinalysis 07/15/2019 CBC (COMPLETE BLOOD COUNT) 02/17/2018 COMPREHENSIVE METABOLIC PANEL 02/17/2018 HEMOGLOBIN A1C 02/17/2018 URINALYSIS, COMPLETE 02/17/2018 XR Ribs w Chest 3+ Views RT 09/23/2019 LIPID PANEL, STANDARD 09/03/2022 LIPID PANEL, STANDARD 04/29/2023 LIPID PANEL, STANDARD 12/11/2024 COMPREHENSIVE METABOLIC PANEL 12/11/2024 COMPREHENSIVE METABOLIC PANEL 04/29/2023 COMPREHENSIVE METABOLIC PANEL 09/03/2022 MAGNESIUM 07/10/2024 CBC (INCLUDES DIFF/PLT) 12/11/2024 CBC (INCLUDES DIFF/PLT) 09/03/2022 URINALYSIS, COMPLETE 09/03/2022 URINALYSIS, COMPLETE 04/29/2023 URINALYSIS, COMPLETE 12/11/2024 HEMOGLOBIN A1c 12/11/2024 HEMOGLOBIN A1c 09/15/2024 HEMOGLOBIN A1c 10/06/2024 HEMOGLOBIN A1c 09/03/2022 HEMOGLOBIN A1c 04/29/2023 T4, FREE 04/29/2023 T4 (THYROXINE), TOTAL 10/06/2024 T4 (THYROXINE), TOTAL 09/15/2024 T4 (THYROXINE), TOTAL 12/11/2024 TSH 09/15/2024 TSH 10/06/2024 TSH 04/29/2023 TSH 09/03/2022 TSH W/REFLEX TO FT4 12/11/2024 VITAMIN D,25-OH,TOTAL,IA 12/11/2024 VITAMIN D,25-OH,TOTAL,IA 09/03/2022 Next Appt Details Provider Name:RED BUTTS, 02/15/2025 11:00:00 AM, [address] [facility], [facility] [address], [place], [address], Insurance Providers Payer Name Payer Address Payer Phone Subscriber Number Group Number Insured Name Patient Relationship to Insured Coverage Start Date Coverage End Date Medicare Part B [id number] [address] [place] [address] [id number] NAHEED ARGUELLO Self - patient is the insured 8 [employer] and [employer] [facility] [address] [place] [address] [phone] [id number] NAHEED ARGUELLO Self - patient is the insured 0 Medications Administered Medication Instructions Date of Administration Dosage Notes MICC B12 INJECTION 04/24/2022 lot # [id number] MICC B12 INJECTION 05/08/2022 1 mL Lot #: [id number] MICC B12 INJECTION 05/23/2022 lot @ [id number] MICC B12 INJECTION 06/05/2022 1 mL Lot #: [id number] MICC B12 INJECTION 06/19/2022 lot # [id number] MICC B12 INJECTION 06/26/2022 lot # [id number] MICC B12 INJECTION 07/03/2022 1 mL Lot #: [id number] MICC B12 INJECTION 07/10/2022 lot # [id number] MICC B12 INJECTION 07/17/2022 lot # [id number] MICC B12 INJECTION 07/24/2022 MICC B12 INJECTION 07/31/2022 [id number] MICC B12 INJECTION 08/07/2022 lot # [id number] MICC B12 INJECTION 08/14/2022 MICC B12 INJECTION 08/21/2022 1 mL Lot #: [id number] MICC B12 INJECTION 08/28/2022 MICC B12 INJECTION 09/03/2022 lot # [id number] MICC B12 INJECTION 09/12/2022 lot [id number] MICC B12 INJECTION 09/19/2022 1 mL Lot #: [id number] MICC B12 INJECTION 09/26/2022 1 mL Lot # [id number] MICC B12 INJECTION 10/03/2022 lot # [id number] MICC B12 INJECTION 10/10/2022 1 mL Lot #: [id number] MICC B12 INJECTION 10/17/2022 1 mL Lot #: [id number] MICC B12 INJECTION 10/24/2022 MICC B12 INJECTION 10/31/2022 [id number] MICC B12 INJECTION 11/07/2022 lot # [id number] MICC B12 INJECTION 11/14/2022 1 mL Lot # [id number] MICC B12 INJECTION 11/21/2022 1 mL Lot # [id number] MICC B12 INJECTION 11/28/2022 [id number] MICC B12 INJECTION 12/05/2022 lot# [id number] MICC B12 INJECTION 12/12/2022 [id number] MICC B12 INJECTION 01/23/2023 1 mL Lot #: [id number] MICC B12 INJECTION 01/30/2023 lot # [id number] MICC B12 INJECTION 02/06/2023 1 mL Lot # [id number] MICC B12 INJECTION 02/13/2023 lot # [id number] MICC B12 INJECTION 02/20/2023 1 mL Lot # [id number] Prolia 05/09/2023 1 Medical (General) History Medical History History ICD Code Hypothyroidism asthma lupus anemia brain anuerysm Pulmonary fibrosis Osteoporosis Surgical History Surgery Date(Month/Year) carpal tunnel release colonoscopy 3 years hysterectomy 1978 gallbladder 1979 Hospitalization History Reason Date(Month/Year) [facility]- BLE edema, 2023 COVID 2020
[2025-01-27] MEDS: iohexoL 350 MG/ML 100 ML INFUS..BTL IV (13:54)
== END 2025-01-27 11:20 | disposition home or self-care (01) ==
LOC: HO.CT 11:19
PROVIDERS: PCP Nurse Practitioner Acute Care; Visit Provider Hospitalist
DX: R07.2 Precordial pain (principal); R04.2 Hemoptysis; R78.89 Finding of other specified substances, not normally found in blood
CPT/HCPCS: 71275; Q9967

== ENCOUNTER → 2025-01-27 11:22 | Outpatient (BNV) | payer MEDICARE, BC, SELFPAY | PROVIDERS: PCP Nurse Practitioner Acute Care; Visit Provider Radiology Diagnostic Radiology | DX: I51.7 Cardiomegaly (principal); R16.0 Hepatomegaly, not elsewhere classified; K76.0 Fatty (change of) liver, not elsewhere classified | CPT/HCPCS: 71275 ==

== ENCOUNTER 2025-02-25 11:16 | Outpatient (AMB) | payer MEDICARE, BC, SELFPAY ==
[2025-02-25 11:19] VITALS: BP 120/76; PULSE 72; O2SAT 95; BMI 39.3
--- NOTE | 2025-02-25 11:19 | A.OFFVIS_ITS ---
Vital Signs 02/25/25 11:19 Height 5 ft 6 in Weight 243 lb 9.773 oz BMI 39.3 BP 120/76 Blood Pressure Location Lt brachial Position Sitting Pulse 72 Pulse Source Pulse Oximeter Pulse Oximetry (%) 95 Oxygen Delivery Method Room Air Intake Visit Reasons: ILD/CPAP Continuous Manager Of Distribution Required: No Accompanied by: Self / Same As Patient Allergies denosumab [From Prolia] Allergy (Intermediate, Verified 02/25/25 11:22) Muscle Pain rofecoxib [From Vioxx] Allergy (Verified 02/25/25 11:22) Unknown Xvpzbqi-BBE-MwK Reductase Inhibitor Allergy (Verified 02/25/25 11:22) Muscle cramps Iodinated Contrast Media Adverse Reaction (Intermediate, Verified 02/25/25 11:22) Unknown HPI Comments Details: The patient is a 69 year woman with a known history of lupus in addition to underlying pulmonary fibrosis. The patient did have a severe case of COVID requiring hospital level of care. CT scan during that admission back in 2020 demonstrated evidence of ground-glass opacities. Subsequent imaging studies demonstrated reticular changes consistent with pulmonary fibrosis. In the meantime the patient does follow-up the arthritis center for her connective tissue disease. He was diagnosed with lupus. Currently on hydrochloroquine. She continues to have significant musculoskeletal discomfort inflammatory arthritis. The patient back in November 2023 develop worsening chest pain in addition to shortness of breath. She was brought to the [facility] ER where she was evaluated. She had a CTA that I personally reviewed. No evidence of any pulmonary emboli. Although the patient did have significant pneumonitis in addition to pleural thickening suggesting a pleuritis related to her underlying connective tissue disease. She responded to additional Medrol therapy. At this point the patient continues to have pleuritic chest pain and shortness of breath. Although better overall. She was hoping to start immunomodulator therapy such as mycophenolate. In the past she had been offered other immuno modulator such as methotrexate but she was concerned about the potential side effects. Explained to her the mycophenolate also has significant side effects although better option then being on the chronic steroids. Will have to monitor closely her laboratories while she is on it. Therefore she will have blood work before she begins it. Will start slowly and workup to the lowest most effective dose. In addition to that the patient will have additional blood work done to assess for other etiologies for the pneumonitis. The patient also should have a repeat CT scan of the chest to assess the response to the immunomodulator therapy. 03/03/2024 the patient is here for a pulmonary follow-up visit. Overall she is doing okay. She had a tough springtime with significant allergies although she has getting a little better at this time. She also started the mycophenolate. Did initially caused her to have significant fatigue. She did develop tolerance and she has been tolerating better. The patient is able to then increase it to twice a day causing her some headaches. However, she is also developed tolerance and she is doing better with it. We did review her recent CT scan of the chest and we did compare to her previous CTA. Significant improvement in the ground-glass opacity throughout. She still has some patchy areas but very minimal. She does have some scarring at the right base likely from further organization of the inflammatory process. Significantly better. At this point she is on adequate dose based on her response to therapy. The patient also continues have infections. She has had issues with sinuses and issues with her eyes with current infections and now immunocompromised on the immunomodulator therapy. We did check her IgG levels and she has a significantly low IgG level at this time. Therefore, I do believe that with the ongoing respiratory infections and other non respiratory infections treatment with IVIG will be very affecting beneficial. Will go ahead and start the process to have her start IV IG every 4 weeks. The patient also has been using her PAP therapy. I believe she uses the BiPAP. Is followed closely by her doctors in [place]. Recently was adjusted. When she had an overnight oximetry but was on room air so therefore not very helpful she did desaturate but again she was not on her PAP therapy. 04/14/2024 the patient is here for a follow-up visit. The patient has been struggling. . However, her insurance denied herShe had COVID about a month ago. Then after that she is having significant sinusitis. Significant good chest congestion and cough. She has had also postnasal drip. Cough is moderate severe. Sometimes is barky in nature. The patient does have hypogammaglobulinemia and does take immunosuppressant therapy so therefore she is at risk for worsening infectious process. We did try start her on IVIG but her insurance company required additional information. We did get titers of her pneumococcal vaccine. Appears that about half of the titers are low suggesting a ineffective response to the vaccine. In addition to that with the increasing infectious processes and respiratory illnesses she definitely will benefit from IVIG. The patient also has lupus. She has been on immunosuppressant therapy for lupus. This also flaring up may have been activator precipitated by her COVID infection. She will need additional steroids. The patient will follow-up with her prospecting driller in the next few weeks. She can have her levels checked again. In the meantime the patient will require antibiotics and also additional Medrol. In addition to that the patient mentioned that when she was initially evaluated for hypogammaglobulinemia she was found to have abnormal protein levels suggesting of multiple myeloma. Then, additional testing may less likely . She has not been evaluated for any blood dyscrasias. But with her immunocompromised condition, hypoglobulinemia chronic infections this should be further evaluated. Therefore will refer her to Hematology. 05/22/2024 the patient is here for pulmonary follow-up visit. She is still struggling with recurrent infections. She is developing again significant sinus congestion and sinus pressure. Will go ahead and start her on prophylactic antibiotics. She has significant hypogammaglobulinemia with decrease in her pneumococcal titers after appropriate vaccination. Therefore, she needs to sta rt IVIG, however, her insurance denied her the much needed therapy. She is going to make her Appeal to the insurance company. Unfortunately, the insurance company also denied my ability to request an appeal. Although it is very clear the patient needs therapy and is better of time for the insurance company to approve it. The patient continues on the CellCept. She also continues on the Medrol. She will be starting Benlysta by her prospecting driller. Hopefully we can wean off some of the Medrol when she is on the Benlysta. From a interstitial lung disease he seems to be responding to the CellCept. She also did follow-up with Hematology. It appears that the blood work for evaluation of multiple myeloma is negative which is reassuring. However she will follow-up with Hematology for further input. 07/31/2024 the patient is here for a pulmonary follow-up visit. Overall she has other complaints now. She is having hard time walking and significant muscle discomfort. She did have her CPK checked and they were considered to be normal. She did look at her medications in the only medication she could find that could have that adverse effect would be the mycophenolate. In addition to that her liver function studies have been climbing. Therefore she will stop it. She has been under Benlysta that is been helping her arthritis. Will have to make sure that her pulmonary interstitial lung disease has not get worse but will go ahead and stop the mycophenolate right now. She has been on the Medrol. In addition to that she was having some increased palpitations in potential arrhythmias. Therefore, the azithromycin was stopped for safety reasons. Although she did feel better after stopping it. She is immunocompromised with significant hypogammaglobulinemia and therefore she needs to be on some prophylactic medication specially she is having some issues with cough right now chest congestion. Will go ahead and send a doxycycline which she tolerates. She will take it twice a day for a couple weeks and then decrease it to once a day. I which point we can consider keeping a prophylactic dose of 1 daily. She is currently requesting a a p.o. of her denial for her IVIG therapy for her significant hypogammaglobulinemia. We tested her pneumococcal titers which were significantly low and her IgG levels are also significantly low. The patient has had recurrent infections both upper and lower respiratory infections and she did requires antibiotics frequently. Will go ahead and request additional blood work right now and she will submit her p.o. to her insurance company so they can provide her the medicine that she needs. In the meantime she continues use oxygen. She does use [employer] for the [employer]ancement. She has a concentrator at home and she has a smaller POC unit that she uses with activity. She should continue with the oxygen therapy as it has been affecting beneficial and will go ahead and make sure that [employer] has a proper paperwork for her to continue to use their services. 10/22/2024 the patient is here for a pulmonary follow-up visit. Overall she is doing better. Her laboratories that she recently had are significantly improved. Where her inflammation is been decreasing significantly. The patient has been under Benlysta and also has been on the IVIG. She has a lot of complaints about the infusion. IgG is a difficult medication to tolerate at times. She needs to have it administer extremely slowly. Will make sure that the infusion center is following the protocols to minimize adverse effects. She is already premedicated which she has helpful. In the meantime she will continue with the therapy. Will plan to check an IgG trough after her 3rd dose to make sure that levels are adequate. She continues with respiratory therapy with good effect. One issue with the blood work demonstrated that she had an increased hemoglobin consistent with polycythemia. We did have her undergo an overnight oximetry on room air while wearing the CPAP. And she actually did well but she spent only 4.5 minutes below 88%. Therefore, not too significant. But, in view of her polycythemia it will be prudent to use the oxygen if she has it which she does. She can use it at 2 L oxygen per minute via the CPAP. CPAP therapy has been affecting beneficial. She does use it for more than 4 hours a night. Will plan to follow-up in therefore months. Which time will plan to repeat her CT scan of the chest and assess her interstitial lung disease. If any issues arise prior to that she will call for an earlier assessment. 01/07/2025 the patient is here for a sick visit. She started developing worsening cough chest congestion and started also developing some hemoptysis. Mild in severity but was bright red blood. Then became a little darker. She has not seen as much blood today. The patient is not on any blood thinners. Denies any pleuritic chest pain. She did get a port and has been getting her IVIG through her port. She gets it now every 2 weeks because of her significant adverse effects. She seems to be tolerating that better and does being managed now by Hematology. The patient is also following closely with the prospecting driller. She has been on chronic steroids. 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 Will go ahead and request blood work including a random cortisol level. On further questioning the patient has had blood clots in the past. Denies any chest pains and she is not taking any blood thinners right now. Denies any tachycardia and is not hypoxic. Therefore these symptoms are likely just from a lower respiratory infection so will go ahead and add an antibiotic, Augmentin to her regimen. If however her symptoms persist she can get blood work including a D- dimer so we can further consider the possibility of thromboembolic disease. 02/25/2025 the patient is here for pulmonary follow-up visit. The patient continues to have multiple complaints sitting chronic bronchitis chest congestion shortness of breath. In addition to that she complains of significant arthritic 80s and muscle discomfort and pain. She had been on Me drol for a prolonged period of time for or frequent dosages. Therefore adrenal insufficiency may be in the differential. I will have her check a cortisol level whenever able. Ideally in the morning. In the meantime the patient continues with the IVIG. She does have the port and this has been very effective for her. Blood pressure seems to be better now that she is taking a lower dose. We did review her CTA that she had back in January personally by me. Evidence of mosaic pattern and ground-glass opacities likely pulmonary vascular congestion though. It seems like she had increased cardiac size. Therefore diuresis was effective. She does benefit from further diuresis. She should not take the diuretics regularly although she should weigh herself as she has a scale at home and if she does gain couple positive 24 hours or 3 lb in 48 hours she should take a diuretic pill to minimize volume overload status. She will continue with respiratory inhalers I do believe that based on a chronic bronchitis and obstructive airway disease Daliresp will be very effective for and decreasing the chest congestion in the needs for steroids. Therefore she will start Daliresp 500 mcg dose. She will start every other day to tolerate the medicine better and then she can start taking it daily as tolerated. The patient follow-up in a couple months. If she has any issues prior to that she will call for an earlier assessment. [facility] Medical History (Updated 01/11/25 @ 14:26 by Kyrie Bliss MD) Abnormal finding on EKG MAURO treated with BiPAP Hypogammaglobulinemia Asthma Lupus Pneumonitis Pulmonary fibrosis Family History Maternal Aunt Brain abscess Bone cancer Maternal Aunt Lung cancer Melanoma Maternal Uncle Melanoma Bone cancer Lung cancer Mother Thyroid cancer Uterine cancer Social History Household Members: Spouse Alcohol intake: current Alcohol intake frequency: does not drink Patient Tobacco Use Status: Former Tobacco user Tobacco use type: Cigarette Years Smoked: 20 Years service: No Current occupational status: retired Review of Systems Const Denies chills, Denies fatigue, Denies fever(s), Denies weight gain and Denies weight loss Eyes Denies change in vision ENT Denies dizziness Card Denies chest pain, Denies leg edema, Denies lightheadedness, Denies palpitations, Reports dyspnea on exertion, Denies orthopnea and Denies other Resp Reports cough and Reports dyspnea on exertion GI Denies hematochezia and Denies change in stool character Musc Denies abnormal gait, Denies muscle weakness, Denies numbness, Denies radiating pain into limb and Denies tingling Skin/Breast Denies rash Neuro Denies abnormal gait, Denies dizziness, Denies numbness and Denies tingling Endo Denies fatigue and Denies palpitations Sheldon/Lymph Denies easy bleeding Physical Exam Vital Signs: Last Vital Signs Pulse 72 02/25/25 11:19 BP 120/76 02/25/25 11:19 Pulse Ox 95 02/25/25 11:19 Oxygen Delivery Method Room Air 02/25/25 11:19 BMI result Body Mass Index 39.3 Const General: comfortable Orientation/consciousness: patient oriented x3 HEENT Head: Yes normocephalic Neck Neck: Yes supple Chest Chest palpation & inspection: normal inspection of the chest Resp Effort & Inspection: normal respiratory effort Auscultation: no crackles and diminished lung sounds Cardio Heart sounds: S1 normal heart sound present and S2 normal heart sound present GI Palpation (GI): Soft to palpation Skin General skin exam: no rashes or lesions noted Neuro General: patient oriented x3 Extrem General: Yes edema Assessment & Plan Assessment & Plan (1) Pulmonary fibrosis: Code(s): J84.10 - Pulmonary fibrosis, unspecified Category: Medical (2) Pneumonitis: Comment: better Code(s): J98.4 - Other disorders of lung Category: Medical (3) Lupus: Code(s): M32.9 - Systemic lupus erythematosus, unspecified Category: Medical (4) Asthma: Code(s): J45.909 - Unspecified asthma, uncomplicated Category: Medical Qualifiers: Asthma complication type: uncomplicated Asthma persistence: intermittent Asthma severity: mild Qualified Code(s): J45.20 - Mild intermittent asthma, uncomplicated (5) Hypogammaglobulinemia: Code(s): D80.1 - Nonfamilial hypogammaglobulinemia Category: Medical (6) MAURO treated with BiPAP: Code(s): G47.33 - Obstructive sleep apnea (adult) (pediatric) Category: Medical (7) Hemoptysis: Code(s): R04.2 - Hemoptysis Category: Medical Plan start Daliresp 500mcg continue Wixela, increase 500/50 off medrol, check cortisol level continue lasix, monitor weight daily CAROL as needed continue singulair continue IVIG via port as per Hematology continue BIPAP Continue oxygen therapy. Patient uses imaging. 2 L pulse with activity and 2 L at nighttime with PAP therapy F/U 2-3 months Orders: Orders Cortisol Random Today J45.20 - Mild intermittent asthma, uncomplicated, M32.9 - Systemic lupus erythematosus, unspecified Medications: New fluticasone propion-salmeterol 500-50 mcg/dose (Wixela Inhub) 1 inh inhalation BID 60 ea 11RF roflumilast (Daliresp) 500 mcg PO DAILY 30 tabs 11RF 30 days furosemide (Lasix) 20 mg PO DAILY PRN 30 tabs 0RF weight gain 30 days Coding Level of Care Code Est Pt Level 5 (67381) Complex EM visit Add On G2211 Diagnoses Pulmonary fibrosis J84.10 Pneumonitis J98.4 Lupus M32.9 Mild intermittent asthma without complication J45.20 Asthma complication type: uncomplicated Asthma persistence: intermittent Asthma severity: mild Hypogammaglobulinemia D80.1 MAURO treated with BiPAP G47.33 Hemoptysis R04.2 Time Spent (min) 60
--- OUTSIDE RECORDS SUMMARY | 2025-02-25 13:15 | XMS_ITS | Patient Health Record ---
[facility] Organization [facility] Address [address] [place] [address] Care Team Providers Care Field Service Engineer Name Role Phone Yashira THOMAS, Shawna Primary Care Provider Steph Dotson Unavailable [phone] Allergies Allergen (clinical drug ingredient) Drug/Non Drug Allergy documented on EMR Reaction Allergy Type Onset Date Status Adhesive Unknown Allergy Active Shellfish (FN) Shellfish-derived Products Unknown Drug Allergy Active Substance with 5-rwhyshp-6-methylgluta ryl-coenzyme A reductase inhibitor mechanism of action [...] Problem Acquired hammer toe of right foot ([id number] ) Other hammer toe(s) (acquired), right foot (M20.41) Active confirmed Problem Acquired hammer toe of left foot ([id number] ) Other hammer toe(s) (acquired), left foot (M20.42) Active confirmed Problem Polyneuropathy due to type 2 diabetes mellitus (621702155) Type 2 diabetes mellitus with diabetic polyneuropathy (E11.42) Active confirmed Plan Of Treatment Pending Test Test Name Order Date [id number] NAIL, 6 OR MORE 09/27/2020 [id number] NAIL, 1-5 11/29/2020 [id number] Plate 09/27/2020 [id number] SKIN LESIONS, OVER 4 09/27/19 21 [id number] SKIN LESIONS, OVER 4 11/30/19 21 [id number] DYSTROPHIC NAILS ANY # Insurance Providers Payer Name Payer Address Payer Phone Subscriber Number Group Number Insured Name Patient Relationship to Insured Coverage Start Date Coverage End Date [employer] [address] [place] [address] [id number] Naheed Luna Self - patient is the insured [facility] [address] [place] [address] [id number] Naheed Luna Self - patient is the [...] Surgery Date(Month/Year) tonsillectomy and adenoidectomy 1962 D&C [id number] hysterectomy 1978 oopherectomy 1978 appendectomy 1978 cholecystectomy 1979 disc surgeryC-5,C-6,SI,L5 S-1 Vplate ant erior 2002,2006,2008 carpal tunnel surgery 2003,2005 Hospitalization History Reason Date(Month/Year) [facility] hypokalemia, hypo magnesemia, thyroi d toxicosis 09/2020
== END 2025-02-25 11:58 | disposition home or self-care (01) ==
LOC: HO.HPS 11:16
PROVIDERS: PCP Nurse Practitioner Acute Care; Visit Provider Hospitalist
DX: J84.10 Pulmonary fibrosis, unspecified (principal); J98.4 Other disorders of lung; M32.9 Systemic lupus erythematosus, unspecified; J45.20 Mild intermittent asthma, uncomplicated; D80.1 Nonfamilial hypogammaglobulinemia; G47.33 Obstructive sleep apnea (adult) (pediatric); R04.2 Hemoptysis
CPT/HCPCS: 99215; G2211

== ENCOUNTER → 2025-02-25 11:16 | Outpatient (BNVA) | payer MEDICARE, BC, SELFPAY | PROVIDERS: PCP Nurse Practitioner Acute Care; Visit Provider Hospitalist | DX: J84.10 Pulmonary fibrosis, unspecified (principal); M32.9 Systemic lupus erythematosus, unspecified; D80.1 Nonfamilial hypogammaglobulinemia; J98.4 Other disorders of lung; J45.20 Mild intermittent asthma, uncomplicated; G47.33 Obstructive sleep apnea (adult) (pediatric); R04.2 Hemoptysis | CPT/HCPCS: 99212 ==

== ENCOUNTER 2025-02-26 13:51 | Outpatient (AMB) | payer MEDICARE, BC, SELFPAY ==
--- NOTE | 2025-02-26 13:55 | A.OFFVIS_ITS ---
Vital Signs 02/26/25 13:56 Height 5 ft 6 in Weight 245 lb 9.519 oz BMI 39.6 BP 124/64 Blood Pressure Location Lt brachial Position Sitting Pulse 81 Pulse Source Pulse Oximeter Intake Visit Reasons: dr camilo request discuss CT Chest Intake Note: f/up-sloan Bliss to discuss ct chest Educational Speech Language Clinician Required: No Accompanied by: Self / Same As Patient Allergies denosumab [From Prolia] Allergy (Intermediate, Verified 02/25/25 11:22) Muscle Pain rofecoxib [From Vioxx] Allergy (Verified 02/25/25 11:22) Unknown Mlkeqlz-EJE-ObD Reductase Inhibitor Allergy (Verified 02/25/25 11:22) Muscle cramps Iodinated Contrast Media Adverse Reaction (Intermediate, Verified 02/25/25 11:22) Unknown Medication List - Last Reconciled 02/26/25 by Vish Moran NP jqqighuqxe-oxgcdukaesawx-hiop 50-325-40 mg 1 tab PO Q6H PRN cetirizine (Zyrtec) 10 mg PO DAILY PRN doxycycline monohydrate 100 mg PO ONCE fluticasone propion-salmeterol 250-50 mcg/dose (Wixela Inhub) 1 ea inhalation BID fluticasone propion-salmeterol 500-50 mcg/dose (Wixela Inhub) 1 inh inhalation BID fluticasone propionate 50 mcg/actuation 1 spray intranasal Q12H furosemide (Lasix) 20 mg PO DAILY PRN 30 days hydroxychloroquine 200 mg PO BID immun glob G(IgG)-gly-IgA ov50 10 % (Gammagard Liquid) 20 grams IV Q3W immun glob G(IgG)-gly-IgA ov50 10 % (Gammagard Liquid) 20 grams IV Q3W levalbuterol tartrate 45 mcg/actuation 1 - 2 puffs inhalation Q4H PRN 30 days levothyroxine (Synthroid) 175 mcg PO DAILY lifitegrast 5% (Xiidra) 1 drp ophthalmic (eye) BID losartan 25 mg PO DAILY metformin ER 500 mg PO DAILY metoprolol tartrate 50 mg PO ONCE nebulizers As directed omeprazole 40 mg PO ONCE roflumilast (Daliresp) 500 mcg PO DAILY 30 days sodium chloride 3% 3 mL inhalation BID suzetrigine (Journavx) 50 mg PO BID tirzepatide (Mounjaro) 7.5 mg subcut QWEEK HPI Comments Details: This is a 69-year-old female patient coming in for an office visit referred by pulmonology to discuss chest CT. Patient with a history of hypertension, diabetes, lupus, Nelia's thyroiditis, fibromyalgia, restrictive lung disease, sleep apnea, and obesity who was recently seen in the office by Dr. Alberto for chest pains. Patient had undergone a echocardiogram, and a coronary CTA for further evaluation. Patient recently had a chest CT imaging with pulmonology that showed enlarged heart and mild calcifications in the vessels. Patient is here to discuss this further. Patient is otherwise reporting the ongoing intermittent chest pain and shortness of breath for which pulmonology has now set her up for continued oxygen supplementation. Patient is otherwise denying any dizziness, fatigue, orthopnea, PND, leg edema, presyncope, or syncope. Patient states she is compliant with all her medications. FOR[facility]LY [facility], [facility] Medical History Abnormal finding on EKG MAURO treated with BiPAP Hypogammaglobulinemia Asthma Lupus Pneumonitis Pulmonary fibrosis Family History Maternal Aunt Brain abscess Bone cancer Maternal Aunt Lung cancer Melanoma Maternal Uncle Melanoma Bone cancer Lung cancer Mother Thyroid cancer Uterine cancer Social History Household Members: Spouse Alcohol intake: current Alcohol intake frequency: does not drink Patient Tobacco Use Status: Former Tobacco user Tobacco use type: Cigarette Years Smoked: 20 Years service: No Current occupational status: retired Review of Systems Const Denies chills, Denies fatigue, Denies fever(s), Denies frequent falls, Denies weakness, Denies weight gain and Denies weight loss ENT Denies dizziness Card Denies chest pain, Denies leg edema, Denies lightheadedness, Denies palpitations, Denies dyspnea and Denies dyspnea on exertion Resp Denies cough, Denies dyspnea and Denies dyspnea on exertion GI Denies hematochezia Musc Denies abnormal gait, Denies muscle weakness, Denies numbness, Denies radiating pain into limb and Denies tingling Neuro Denies abnormal gait, Denies dizziness, Denies frequent falls, Denies numbness, Denies tingling and Denies weakness Endo Denies fatigue and Denies palpitations Physical Exam Vital Signs: Last Vital Signs Pulse 81 02/26/25 13:56 BP 124/64 02/26/25 13:56 BMI result Body Mass Index 39.6 Const General: cooperative, healthy appearing, comfortable and no acute distress Orientation/consciousness: patient oriented x3 HEENT Head: Yes normal to inspection Neck Neck: Yes normal visual inspection, Yes trachea midline and Yes supple Chest Chest palpation & inspection: normal inspection of the chest Resp Other: On continuous oxygen supplementation Effort & Inspection: normal respiratory effort Auscultation: clear to auscultation bilaterally, no crackles, no rales, no rhonchi and no wheezes Cardio Jugular venous distension: no JVD Palpation: normal PMI Rate: regular rate Rhythm: regular rhythm Heart sounds: S1 normal heart sound present, S2 normal heart sound present, no click, no gallops, no murmurs and no rubs Peripheral pulses: Peripheral pulses 2+ throughout GI Inspection: Yes normal to inspection Palpation (GI): Soft to palpation Auscultation: normal bowel sounds Skin General skin exam: no rashes or lesions noted Neuro General: patient oriented x3 Extrem General: Yes normal to inspection, No no pedal edema and No calf tenderness Psych Appearance: grossly normal Mental Status: mental status grossly normal Speech and movement: Normal speech and movement present Assessment & Plan Assessment & Plan (1) Cardiomegaly: Code(s): I51.7 - Cardiomegaly Category: Medical (2) Hypertension: Code(s): I10 - Essential (primary) hypertension Category: Medical Plan 10/20/2024-echo study showed a normal LV systolic function with an ejection fraction at 66%, with moderately increased LV wall thickness. 12/16/2024-coronary CTA showed reduced image quality due to body habitus otherwise no definitive obstructive coronary disease. 01/27/2025-chest CT showed mild calcifications in the vessel with a moderately enlarged heart size. Given the known increased LVH and above findings, no further testing needed at this point.- discussed with Dr. Bullard. Patient is requesting a repeat echo. Patient states that due to her other comorbidities, patient can not be on long-term Lasix but otherwise had used low- dose Lasix as needed for leg swelling. Clinically euvolemic and stable. We will get a BNP and repeat the echo. Further testing and treatment based on findings. Blood pressure is well-controlled. Continue current regimen. Advised heart healthy diet, regular exercise, losing weight, med compliance, and management of vascular risk factors. Follow up in 1 month following echo. In the interim, patient will call the office with any concerns or change in symptoms. This note was generated using voice recognition software. While every effort has been made to ensure accuracy and proper wire technician, there may be occasional errors that could affect the content or meaning of the described symptoms. Orders: Orders CA echo transthoracic complete Today I51.7 - Cardiomegaly NT-proBNP Today I51.7 - Cardiomegaly Coding Level of Care Code Est Pt Level 4 (32533) Complex EM visit Add On G2211 Diagnoses Cardiomegaly I51.7 Hypertension I10 Time Spent (min) 32 Comment Time spent in reviewing the chart, test results, assessment, counseling and documentation.
[2025-02-26 13:56] VITALS: BP 124/64; PULSE 81; BMI 39.6
--- OUTSIDE RECORDS SUMMARY | 2025-02-26 13:56 | XMS_ITS | Patient Health Record ---
[facility] Address [address] [place] [address] Care Team Providers Care Arbor Press Operator Name Role Phone Yashira THOMAS, Shawna Primary Care Provider Steph Dotson Unavailable [phone] Allergies Allergen (clinical drug ingredient) Drug/Non Drug Allergy documented on EMR Reaction Allergy Type Onset Date Status Adhesive Unknown Allergy Active Shellfish (FN) Shellfish-derived Products Unknown Drug Allergy Active Substance with 3-ylugclo-5-methylgluta ryl-coenzyme A reductase inhibitor mechanism of action [...] Problem Acquired hammer toe of right foot (7038729460375074 ) Other hammer toe(s) (acquired), right foot (M20.41) Active confirmed Problem Acquired hammer toe of left foot (6360101164083374 ) Other hammer toe(s) (acquired), left foot (M20.42) Active confirmed Problem Polyneuropathy due to type 2 diabetes mellitus (589471055) Type 2 diabetes mellitus with diabetic polyneuropathy (E11.42) Active confirmed Plan Of Treatment Pending Test Test Name Order Date [id number] NAIL, 6 OR MORE 09/27/2020 [id number] NAIL, 1-5 11/29/2020 [id number] Plate 09/27/2020 [id number] SKIN LESIONS, OVER 4 09/27/19 21 [id number] SKIN LESIONS, OVER 4 11/30/19 21 [id number] DYSTROPHIC NAILS ANY # Insurance Providers Payer Name Payer Address Payer Phone Subscriber Number Group Number Insured Name Patient Relationship to Insured Coverage Start Date Coverage End Date Medicare National [employer] [address] [place] [address] [id number] Naheed Luna Self - patient is the insured [facility] [address] [place] [address] [id number] Naheed Luna Self - patient is the [...] Surgery Date(Month/Year) tonsillectomy and adenoidectomy 1962 D&C 8857-5260 hysterectomy 1978 oopherectomy 1978 appendectomy 1978 cholecystectomy 1979 disc surgeryC-5,C-6,SI,L5 S-1 Vplate ant erior 2002,2006,2008 carpal tunnel surgery 2003,2005 Hospitalization History Reason Date(Month/Year) [facility] hypokalemia, hypo magnesemia, thyroi d toxicosis 09/2020
== END 2025-02-26 14:43 | disposition home or self-care (01) ==
LOC: HO.HCS 13:52
PROVIDERS: PCP Nurse Practitioner Acute Care
DX: I51.7 Cardiomegaly (principal); I10 Essential (primary) hypertension
CPT/HCPCS: 99214; G2211

== ENCOUNTER → 2025-02-26 13:51 | Outpatient (BNVA) | payer MEDICARE, BC, SELFPAY | PROVIDERS: PCP Nurse Practitioner Acute Care | DX: I51.7 Cardiomegaly (principal); I10 Essential (primary) hypertension | CPT/HCPCS: 99212 ==

== ENCOUNTER → 2025-03-15 10:54 | Outpatient (REF) | payer MEDICARE, BC, SELFPAY ==
--- NOTE | 2025-03-15 10:56 | CA_ITS ---
Transthoracic Echocardiogram Patient (Last, First, Middle): Naheed Luna A Gender: Female Date of : 1955 Age: 69 Procedure Date: 03/15/2025 Procedure Type: Transthoracic Echocardiogram Location: OP Height: 170.18 cm Weight: 109.77 kg BSA: 2.19 m2 Heart Rate: bpm BP: 134 / 80 mmHg Senior Advisor: GEO Referring MD: Vish Moran NP Mold Washer: Luis Bullard MD Symptoms: I51.7 - Cardiomegaly Study Quality: Good ECG Rhythm: Sinus Conclusions: - 1. Normal LV ejection fraction of 60 65% with mild LVH with impaired relaxation filling pattern with moderate asymmetric septal hypertrophy 2. Normal cardiac valvular Dopplers 3. No gross pericardial effusion Findings Left Ventricle Normal left ventricular size and systolic function. There is mildly increased left ventricular wall thickness. The visually estimated ejection fraction is between 60-65%. There is no dynamic left ventricular outflow tract obstruction. Spectral Doppler is indicative of an impaired relaxation filling pattern. E/E prime ratio is between 8 and 15 consistent with indeterminate filling pressures. There is moderate septal asymmetric hypertrophy. Right Ventricle Normal right ventricular cavity size and systolic function. Atria The left atrium is normal in size. There is lipomatous hypertrophy of the interatrial septum. There is no evidence of interatrial shunt. The right atrium is normal in size. Aortic Valve The aortic valve structure and function is likely normal. There is no aortic valve stenosis. There is no aortic valve regurgitation. Mitral Valve Likely normal mitral valve structure and function. There is trace mitral valve regurgitation. There is no mitral valve stenosis. Pulmonic Valve The pulmonic valve was not well visualized. Tricuspid Valve Likely normal tricuspid valve structure and function. Tricuspid regurgitation envelope is inadequate for calculation of right ventricular systolic pressure. Normal right atrial pressure. Great Vessels All visible segments of the aorta are normal in size. The pulmonary artery was not well visualized. There is no dilatation of the ascending aorta measuring 3.00 cm. Venous The inferior vena cava is normal in size and collapses greater than 50% with inspiration. Pericardium/Pleural There is no evidence of pericardial effusion. Prior Study Comparison No prior study available for comparison. Measurements 2D Linear Measurements IVSd: 1.52 0.6-0.9/0.6-1.0 cm LVIDd: 4.69 3.9-5.3/4.2-5.9 cm LVIDd Index: 2.14 2.4-3.2/2.2-3.1 cm/m2 LVIDs: 2.86 2.0-3.6 cm LVPWd: 1.48 0.7-1.1 cm Ao Root: 2.80 2.1-3.5 cm LA Diam: 4.30 2.7-3.8/3.0-4.0 cm LAIDs Index: 1.96 1.5-2.3 cm/m2 LV Mass: 365.66 67-162/88-224 g LV Mass Index: 166.97 43-95/49-115 g/m2 LVOT Diam: 2.00 3.0+(-)1.3 cm 2D Systolic Function EF 4C: 66.60 >55% EF 2C: 56.20 >55% EF BiP: 62.70 >55% Mitral Valve MV Pk E: 0.72 MV PK A: 1.12 MV Decel Time: 183.00 E/A: 0.60 E'Lateral: 6.20 E'Medial: 5.00 E/E' Med: 14.40 E/E' Lat: 11.60 PHT: 54.00 MVA PHT: 4.07 Decel [place]: 3.94 Aortic Valve AoV Pk Crow: 1.62 AoV Mn Crow: 1.08 AoV VTI: 0.39 AoV Pk Grad: 10.00 Aov Mn Grad: 5.00 LETICIA Cont.VTI: 1.54 LVOT LVOT Pk Crow: 0.89 LVOT Mn Crow: 0.69 LVOT VTI: 0.19 LVOT Pk Grad: 3.00 LVOT Mn Grad: 2.00 LVOT Diam: 2.00 LVOT Area: 3.14 Diastolic Function MV Pk E: 0.72 MV Pk A: 1.12 E/A: 0.60 E'Medial: 5.00 E/E' Med: 14.40 E' Laterial: 6.20 E/E' Lat: 11.60 Right Ventricle TAPSE (mm): 33.00 Tricuspid Valve TR Pk Crow: 1.67 TR Pk Grad: 11.00 RA Press: 3.00 Great Vessels Aorta Ao Root-2D: 2.80 2.0-3.7 cm Ao Asc: 3.00 2.1-3.4 cm Pulmonary Valve PV Pk Crow: 1.03 Peak PV Grad: 4.00 Updated in Other Vendor System with Status of Final Luis Bullard MD electronically signed on 03/16/2025 12:40:50 PM with status of Final
--- OUTSIDE RECORDS SUMMARY | 2025-03-15 11:42 | XMS_ITS | Patient Health Record ---
Author Organization [facility] Address [address] [place] [address] Care Team Providers Care Carton Machine Operator Name Role Phone Yashira THOMAS, Shawna Primary Care Provider Steph Dotson Unavailable [phone] Allergies Allergen (clinical drug ingredient) Drug/Non Drug Allergy documented on EMR Reaction Allergy Type Onset Date Status Adhesive Unknown Allergy Active Shellfish (FN) Shellfish-derived Products Unknown Drug Allergy Active Substance with 5-kceokxe-0-methylgluta ryl-coenzyme A reductase inhibitor mechanism of action (substance) Statins Unknown Drug Allergy Active Reason For Referral No Information Medications Medication SIG (Take, Route, Frequency, Duration) Notes Start Date End Date Status ZyrTEC Allergy 10 MG 1 tablet Orally Onc e a day; Duration: 30 day(s) Active Fioricet Active Fluticasone Furoate 50 MCG/ACT 2 puffs Inhalation Once a day Active Advair HFA 230-21 MCG/ACT 2 puffs Inhala tion Twice a day Active amLODIPine Besylate 10 MG 1 tablet Orall y Once a day; Duration: 30 day(s) Active Dicyclomine HCl 20 MG 1 tablet Orally Th ree times a day; Duration: 30 day(s) Active Extra Depth Orthopedic Shoes (1 Pair) with Customized Heat Molded Multidensity Innersoles (3 Pair) as directed Dx: NIDDM/Polyneuropathy (E11.42), Hammertoe Foot Deformity (M20.41,M20.42), Preulcerative Skin Lesion(s) (L85.1 11/29/2020 Active Losartan Potassium 25 MG 1 tablet Orally Once a day Active Synthroid 200 MCG 1 tablet in the morn ing on an empty stomach Orally Once a day; Duration: 30 day(s) Active Plaquenil 200 MG as directed Orally Active Victoza Active Pyridium Active methylPREDNISolone 2 MG 2 tablets in the morning with food or milk Orally Once a day; Duration: 30 day(s) Active Albuterol Active Ferrous Sulfate 324 MG 1 tablet Orally O nce a day; Duration: 30 day(s) Active Montelukast Sodium A ctive [...] Problem Acquired hammer toe of right foot (1677594177608050 ) Other hammer toe(s) (acquired), right foot (M20.41) Active confirmed Problem Acquired hammer toe of left foot (0074339589202471 ) Other hammer toe(s) (acquired), left foot (M20.42) Active confirmed Problem Polyneuropathy due to type 2 diabetes mellitus (909675234) Type 2 diabetes mellitus with diabetic polyneuropathy (E11.42) Active confirmed Plan Of Treatment Pending Test Test Name Order Date [id number] NAIL, 6 OR MORE 09/27/2020 [id number] NAIL, 1-5 11/29/2020 [id number] Plate 09/27/2020 [id number] SKIN LESIONS, OVER 4 09/27/19 21 [id number] SKIN LESIONS, OVER 4 11/30/19 21 [id number] DYSTROPHIC NAILS ANY # Insurance Providers Payer Name Payer Address Payer Phone Subscriber Number Group Number Insured Name Patient Relationship to Insured Coverage Start Date Coverage End Date Medicare National Govt Svcs Inc [address] [place] [address] [phone] [id number] Naheed Luna Self - patient is the insured [facility] [address] [place] [address] [phone] [id number] Naheed Luna Self - patient is the [...] Surgical History Surgery Date(Month/Year) tonsillectomy and adenoidectomy 2 D&C 3069-0069 hysterectomy 1978 oopherectomy 1978 appendectomy 1978 cholecystectomy 1979 disc surgeryC-5,C-6,SI,L5 S-1 Vplate ant erior 2002,2006,2008 carpal tunnel surgery 2003,2005 Hospitalization History Reason Date(Month/Year) [facility] hypokalemia, hypo magnesemia, thyroi d toxicosis 09/2020
== END ==
LOC: HO.CARD 10:54
PROVIDERS: PCP Nurse Practitioner Acute Care
DX: I51.7 Cardiomegaly (principal)
CPT/HCPCS: 93306

== ENCOUNTER → 2025-03-15 10:56 | Outpatient (BNV) | payer MEDICARE, BC, SELFPAY | PROVIDERS: PCP Nurse Practitioner Acute Care; Visit Provider Internal Medicine Cardiovascular Disease | DX: I42.2 Other hypertrophic cardiomyopathy (principal) | CPT/HCPCS: 93306 ==

== ENCOUNTER 2025-04-23 09:58 | Inpatient (IN) | payer MEDICARE, BC, SELFPAY ==
--- NOTE | ~2025-04-23 | CT_ITS ---
EXAMINATION: CT ABDOMEN PELVIS WITH IV CONTRAST HISTORY: lower abd pain severe hx of diverticulitis ? perf COMPARISON: Comparison is made with the prior examination dated 09/10/2024. TECHNIQUE: CT scan of the abdomen and pelvis was performed following administration of 85 mL Omnipaque 350 using standard departmental protocol. Coronal and sagittal reformatted images were generated and reviewed. Oral contrast material was not administered at the request of the referring physician. This CT exam was performed with one or more of the following dose reduction techniques: automated exposure control, adjustment of the mA and/or kV according to patient size, use of iterative reconstruction technique. DLP: 909 mGy-cm FINDINGS: LOWER CHEST: The visualized lung bases are clear. There is no pleural effusion. CARDIOVASCULATURE: The heart is normal in size. There is no pericardial effusion. LIVER: The liver is normal in size and contour, but demonstrates diffusely decreased attenuation, consistent with steatosis. No liver mass is identified. The hepatic and portal veins are patent. GALLBLADDER / BILE DUCTS: The gallbladder is surgically absent. There is no intra or extrahepatic biliary ductal dilatation. SPLEEN: The spleen is normal in size. No focal splenic lesion is identified. PANCREAS: The pancreas is unremarkable in appearance. ADRENAL GLANDS: Within normal limits. KIDNEYS/RETROPERITONEUM: No renal calculi are identified. There is no hydronephrosis. No renal masses are identified. LYMPH NODES: No abdominal or pelvic lymphadenopathy. VASCULATURE: The abdominal aorta is normal in caliber. MESENTERY/PERITONEUM: No free fluid. No masses. There is no free intraperitoneal gas. STOMACH: The stomach is collapsed, limiting evaluation. SMALL BOWEL: The small bowel is normal in caliber. COLON: There is diverticulosis and wall thickening of the descending and sigmoid colon, without evidence of diverticulitis. APPENDIX: The appendix is not seen, however no inflammatory changes are seen adjacent to the cecum. URINARY BLADDER/PELVIC ORGANS: The urinary bladder is collapsed, limiting evaluation. The patient is status post hysterectomy. BONES / SOFT TISSUES: The patient is status post anterior fusion of L4-[address]/CT abdomen pelvis w IV con IMPRESSION: 1. Diverticulosis of the descending and sigmoid colon, without evidence of diverticulitis. 2. Hepatic steatosis. Electronically signed by: Jimenez Turner MD 04/23/2025 12:12 PM EDT
--- NOTE | 2025-04-23 10:04 | ED_ITS ---
HPI - General Adult General Chief complaint: Abdominal Pain Stated complaint: ABD PAIN Source: patient and EMS Mode of arrival: EMS Limitations: no limitations History of Present Illness ED Provider: BERTO Spencer HPI narrative: This is a 69-year-old female history of hypertension, cardiomegaly, monoclonal gammopathy of unknown significance, MAURO on BiPAP, hypogammaglobulinemia, asthma, lupus, pulmonary fibrosis, aspiration pneumonitis presenting to the emergency department with complaints of severe lower abdominal pain ongoing for the past week acutely worsening over the past few days. Patient reports she has a longstanding history of diverticulitis this feels similar however much worse than she has ever experienced. Pain 10/10, stabbing. Associated with vomiting she reports she has been vomiting bile and she has been having soft bowel movements as well. She is not able to tolerate food. Denies fevers, chills, headache, vision changes, dizziness, weakness, chest pain, shortness of breath. No sick contacts. Related Data Home Medications ?Medication ?Instructions ?Recorded ?Confirmed valxasbmfn-aopuhrqxlrsix-wkkyjkin 1 tab PO Q6H PRN Benson n 01/17/24 03/04/25 50 mg-325 mg-40 mg tablet cetirizine 10 mg tablet (Zyrtec) 10 mg PO DAILY PRN Al lergy Symptoms 01/17/24 03/04/25 fluticasone 250 mcg-salmeterol 50 1 ea inhalation BID 01/17/24 03/04/25 mcg/dose blistr powdr for inhalation (Wixela Inhub) fluticasone propionate 50 1 spray intranasal Q12H 12/0703/04/25 mcg/actuation nasal spray,suspension hydroxychloroquine 200 mg tablet 200 mg PO BID 4 03/04/25 losartan 25 mg tablet 25 mg PO DAILY 01/17/2402/14 sodium chloride 3 % for 3 ml inhalation BID 01/17/24 03/04/25 nebulization nebulizers 03/03/24 03/04/25 metformin 500 mg 24 hr 500 mg PO DAILY 08/17/24 tablet,extended release (gastric retention) lifitegrast 5 % eye drops in a 1 drp ophthalmic (eye) BID 10/07/24 03/04/25 dropperette (Xiidra) levothyroxine 175 mcg tablet 175 mcg PO DAILY 11/23/24 03/04/25 (Synthroid) metoprolol tartrate 25 mg tablet 50 mg PO ONCE 5 03/04/25 suzetrigine 50 mg tablet (Journavx) 50 mg PO BID 01/0703/04/25 tirzepatide 5 mg/0.5 mL 7.5 mg subcut QWEEK 01/07/25 03/04/25 subcutaneous pen injector (Alexandra) doxycycline monohydrate 100 mg 100 mg PO ONCE 02/25/25 03/04/25 tablet omeprazole 10 mg capsule,delayed 40 mg PO ONCE 5 03/04/25 release Previous Rx's ?Medication ?Instructions ?Recorded immune glob,gamma (IgG) 10 20 g IV Q3W #0 mL 12/10/24 %-gly-IgA over 50 mcg/mL injection solution (Gammagard Liquid) immune glob,gamma (IgG) 10 20 g IV Q3W 12/11/24 %-gly-IgA over 50 mcg/mL injection solution (Gammagard Liquid) fluticasone 500 mcg-salmeterol 50 1 inh inhalation BID #60 ea 02/25/25 mcg/dose blistr powdr for inhalation (Wixela Inhub) furosemide 20 mg tablet (Lasix) 20 mg PO DAILY PRN luciano ght gain 30 02/25/25 days #30 tabs roflumilast 500 mcg tablet 500 mcg PO DAILY 30 days #3 0 tabs 02/25/25 (Daliresp) levalbuterol tartrate 45 1 - 2 puff inhalation Q4H NM N 03/04/25 mcg/actuation aerosol inhaler wheezing 30 days #15 gra ms ondansetron 8 mg disintegrating 8 mg PO Q8H #60 tabs 0 03/04/25 tablet Allergies Allergy/AdvReac Type Severity Reaction Status Date / Time denosumab (From Prolia) Allergy Intermediate Muscle Pain Verified 04/23/25 10:24 rofecoxib (From Vioxx) Allergy Unknown Verified 04/23/25 10:24 Ubslekl-GCP-VjF Reductase Allergy Muscle Verified 04/23/25 10:24 Inhibitor cramps Iodinated Contrast Media AdvReac Intermediate Unknown Verified 04/23/25 10:24 Review of Systems 2 Review of Systems: Yes all other systems are reviewed and are negative [facility] Past Medical History Attestation statement: The following information was validated with the patient. Source: old records reviewed and nursing notes reviewed Medical History Abnormal finding on EKG MAURO treated with BiPAP Hypogammaglobulinemia Asthma Lupus Pneumonitis Pulmonary fibrosis Family History Family History Maternal Aunt Brain abscess Bone cancer Maternal Aunt Lung cancer Melanoma Maternal Uncle Melanoma Bone cancer Lung cancer Mother Thyroid cancer Uterine cancer Social History Social History Household Members: Spouse Alcohol intake: current Alcohol intake frequency: does not drink Patient Tobacco Use Status: Former Tobacco user Tobacco use type: Cigarette Years Smoked: 20 Years Smoked in Last 30 Days: No Advance Directives: Yes Advance Directives Information Provided: Yes Advance Directives on File: No Do you have a plan to hurt others: No Plan service: No Current occupational status: retired Physical Exam ED Exam Exam: Appearance: Alert.? Oriented X3.? No acute distress.? Head: Normocephalic, atraumatic, no step-offs or deformities Eyes: Pupils equal, round and reactive to light.? ENT: Pharynx normal.? Neck: Normal inspection.? Neck supple.? CVS: Normal heart rate and rhythm.? Pulses normal.? Respiratory: No respiratory distress.? Breath sounds normal.? Abdomen: Soft and Significant discomfort with palpation of entire abdomen worse to the left lower quadrant, rebound tenderness. Patient reports pain in stomach when the stretcher is moved..? Skin: Skin warm and dry.? Normal skin color.? Normal skin turgor.? Extremities: No lower extremity edema.? No calf ttp. 5/5 strength to bilateral upper and lower extremities Back: No midline tenderness, no C-spine tenderness, full range of motion, no CVA tenderness bilaterally Neuro: Oriented X 3.? No motor deficit.? No sensory deficit. CN 2-12 intact Vital Signs: Vital Signs - 24 hr 04/23/25 10:18 04/23/25 12:02 Temperature 98.4 F Pulse Rate 80 79 Respiratory Rate 18 11 L Blood Pressure 161/78 H 152/68 H Pulse Oximetry 98 100 Oxygen Delivery Method Nasal Cannula Room Air BMI result Body Mass Index 39.3 stable vitals Course Reevaluation(s) Reevaluation #1: Patient reports unknown allergy to contrast, she reports she has been able to have contrast in the past however she needs to be premedicated with Benadryl. Will order Benadryl as this time Time: 10:19 Reevaluation #2: I did review imaging from 12/15/2024 it appears as though patient had a tunneled catheter insertion and this is a power port. This will be used. Time: 10:26 Reevaluation #3: CBC unremarkable. Chemistry with no acute findings needing intervention. Normal lipase. CT abdomen pelvis with diverticulosis of descending and sigmoid colon without evidence of diverticulitis. Hepatic steatosis. Patient is still uncomfortable and nauseous additional Zofran has been ordered. Time: 12:35 Additional Reevaluation(s): 1310 Patient again complaining of severe pain, and nausea. I ordered more morphine. Surgery will be consulted for input ( Dr. Del Rio) 1527 Plan- hospital admission. Surgery saw patient and will follow. Intractable nausea and vomiting and abd pain. Medications Administered Discontinued Medications Generic Name Dose Route Start Last Admin Trade Name Freq PRN Reason Stop Dose Admin Diphenhydramine HCl 25 mg 04/23/25 10:12 04/23/25 11:05 Diphenhydramine Hcl 50 Mg/Ml Vial IVPUSH 04/23/25 10:13 25 mg ONCE ONE Administration Hydromorphone HCl 0.5 mg 04/23/25 14:36 04/23/25 15:24 Hydromorphone Hcl 0.5 Mg/0.5 Ml Syringe IVPUSH 04/23/25 14:37 0.5 mg ONCE ONE Administration Protocol Piperacillin Sod/Tazobactam 50 mls @ 100 mls/hr 04/23/25 10:26 04/23/25 12:52 Sod 3.375 gm/ Sodium Chloride IV 04/23/25 10:55 Infused ONCE ONE Infusion Iohexol 100 ml 04/23/25 11:51 04/23/25 11:51 Iohexol 350 Mg/Ml 100 Ml Infus..Btl IV 04/23/25 11:52 100 ml ONCE ONE Administration Morphine Sulfate 2 mg 04/23/25 10:12 04/23/25 11:05 Morphine Sulfate 4 Mg/Ml Cartridge IVPUSH 04/23/25 10:13 2 mg ONCE ONE Administration Protocol Morphine Sulfate 4 mg 04/23/25 13:09 04/23/25 13:35 Morphine Sulfate 4 Mg/Ml Cartridge IVPUSH 04/23/25 13:10 4 mg ONCE ONE Administration Protocol Ondansetron HCl 4 mg 04/23/25 10:12 04/23/25 11:06 Ondansetron Hcl 4 Mg/2 Ml Vial IVPUSH 04/23/25 10:13 4 mg ONCE ONE Administration Ondansetron HCl 4 mg 04/23/25 12:07 04/23/25 12:39 Ondansetron Hcl 4 Mg/2 Ml Vial IVPUSH 04/23/25 12:08 4 mg ONCE ONE Administration Medical Decision Making Medical Decision Making [facility] Narrative: 1005 69-year-old female presents with abdominal pain in the lower region worse on the left. physical exam with significant discomfort with palpation of abdomen throughout however worse to the left lower quadrant. patient reports pain when I shake the stretcher. history and physical exam concerning for Acute abdomen/diverticulitis. Will rule out metabolic derangements, urinary infection. Unlikely abdominal aneurysm, ACS, PE. plan labs, urine , imaging. Differential Diagnosis Differential Diagnoses: The differential diagnosis associated with the presentation includes (history and physical exam concerning for Acute abdomen/diverticulitis. Will rule out metabolic derangements, urinary infection. Unlikely abdominal aneurysm, ACS, PE.) Admission/Observation Consideration of admission/observation: Escalation of care including admission/observation considered (likely ) Consult Healthcare Provider Management of the patient was discussed with: Hospitalist and Etcher Electrolytic Lab Data [facility] Lab Attestation statement: I reviewed the patient's lab results. 04/23/25 11:19 04/23/25 11:19 Labs: Lab Results 04/23/25 Range/Units 11:19 WBC 10.2 (4.8-10.8) X10*3/uL RBC 4.77 (4.20-5.50) X10*6/uL Hgb 12.5 (12.0-16.0) g/dl Hct 38.1 (37.0-47.0) % MCV 79.9 L (80.0-98.0) fL MCH 26.2 L (27.0-33.0) pg MCHC 32.8 (31.0-35.0) g/dl RDW 15.6 (11.0-16.0) % Plt Count 217 (160-400) X10*3/uL MPV 9.5 (9.4-12.3) fL Immature Gran % (Auto) 0.5 H (0.0-0.4) % Neut % (Auto) 73.1 H (45-73) % Lymph % (Auto) 16.5 L (20-40) % Crittenden % (Auto) 8.5 (2-11) % Eos % (Auto) 1.0 (0-4) % Baso % (Auto) 0.4 (0-2) % Lymph # (Auto) 1.7 (1.2-4.9) X10*3/uL [place]enden # (Auto) 0.9 (0.1-1.2) X10*3/uL Eos # (Auto) 0.1 (0.0-0.4) X10*3/uL Baso # (Auto) 0.0 (0.0-0.2) X10*3/uL Abs Immat Gran (auto) 0.05 H (0.00-0.03) X10*3/uL Absolute Neuts (auto) 7.4 (2.0-8.3) x10*3/uL Absolute Nucleated RBC 0.000 (0.0-0.012) X10*3/uL Nucleated RBC % (auto) 0.0 (0.0-0.2) /100WBC Sodium 144 (135-145) mmol/L Potassium 3.6 (3.3-5.1) mmol/L Chloride 110 H (96-108) mmol/L Carbon Dioxide 24 (22-29) mmol/L Anion Gap 14 (12-20) BUN 8 L (9-16) mg/dL Creatinine 0.75 (0.5-1.4) mg/dL Estim Creat Clear Calc 83.6 Estimated GFR > 60 Random Glucose 88 (60-115) mg/dL Lactic Acid 0.7 (0.5-2.0) mmol/L Calcium 9.2 (8.4-10.2) mg/dL Magnesium 2.0 (1.6-2.6) mg/dL Total Bilirubin 0.4 (0.0-1.0) mg/dL AST 31 (5-31) U/L ALT 45 H (0-31) U/L Alkaline Phosphatase 86 (39-117) U/L Total Protein 6.8 (6.5-8.0) g/dL Albumin 4.0 (3.5-5.0) g/dL Lipase 32 (8-78) U/L Independent Interpretation I performed an independent interpretation of an: CT Scan Radiology Impression Discussion of test interpretation with radiology: I have reviewed the radiologist's reading. External Record Review External record reviewed: Inpatient record, Office record, Outpatient record, Prior outpatient labs, Prior outpatient radiology, Primary care record and Outside ED record Chronic Conditions Patient?s care impacted by: Hypertension and Other (obesity, see hpi ) Critical Care Time Critical Care Time Critical Care Time: Yes Total Critical Care Time: 45 Attestation: I attest to this time spent taking care of the patient, obtaining history, physical, reviewing labs, imaging, treatment of patients condition +/- specialist/hospitalist consult +/- procedure Discharge Plan Discharge Clinical Impression: Intractable nausea and vomiting, Abdominal pain, Gastroenteritis Patient Disposition: Admitted As Inpatient Print Language: Niuean
[2025-04-23 10:18] VITALS: BP 161/78; PULSE 80; RESP 18; TEMP 36.9; O2SAT 98; BMI 39.3
[2025-04-23 11:40] LABS: MANUAL DIFF FLAG NO
[2025-04-23 11:45] LABS: Hematocrit 38.1 % (37.0-47.0); Hemoglobin 12.5 g/dl (12.0-16.0); Imm Gran Abs Auto 0.05 X10*3/uL (0.00-0.03); Imm Gran Pct Auto 0.5 % (0.0-0.4); Lymphocytes Absolute Auto 1.7 X10*3/uL (1.2-4.9); Mean Corpuscular HGB Conc 32.8 g/dl (31.0-35.0); Mean Corpuscular Hemoglobin 26.2 pg (27.0-33.0); Mean Corpuscular Volume 79.9 fL (80.0-98.0); NRBC Abs Auto 0.000 X10*3/uL (0.0-0.012); NRBC Pct Auto 0.0 /100WBC (0.0-0.2); Platelet Count 217 X10*3/uL (160-400); Red Blood Count 4.77 X10*6/uL (4.20-5.50); White Blood Count 10.2 X10*3/uL (4.8-10.8)
[2025-04-23] MEDS: iohexoL 350 MG/ML 100 ML INFUS..BTL IV (11:51)
[2025-04-23 11:57] LABS: Alanine Aminotransferase 45 U/L (0-31); Albumin Level 4.0 g/dL (3.5-5.0); Alkaline Phosphatase 86 U/L (39-117); Anion Gap 14 (12-20); Aspartate Amino Transferase 31 U/L (5-31); Blood Urea Nitrogen 8 mg/dL (9-16); Calcium 9.2 mg/dL (8.4-10.2); Carbon Dioxide 24 mmol/L (22-29); Chloride 110 mmol/L (96-108); Creatinine Clr Calc Pharmacy 83.6; Estimated Glomerular Filt Rate > 60; Lipase 32 U/L (8-78); Magnesium 2.0 mg/dL (1.6-2.6); Potassium 3.6 mmol/L (3.3-5.1); Sodium 144 mmol/L (135-145); Total Protein 6.8 g/dL (6.5-8.0)
[2025-04-23 12:02] VITALS: BP 152/68; PULSE 79; RESP 11; O2SAT 100
--- OUTSIDE RECORDS SUMMARY | 2025-04-23 13:02 | XMS_ITS | Patient Health Record ---
Author Organization [facility] Address [address] [place] [address] Care Team Providers Care Sieve Grader Tender Name Role Phone Yashira THOMAS, Shwana Primary Care Provider Steph Dotson Unavailable [phone] Allergies Allergen (clinical drug ingredient) Drug/Non Drug Allergy documented on EMR Reaction Allergy Type Onset Date Status Adhesive Unknown Allergy Active Shellfish (FN) Shellfish-derived Products Unknown Drug Allergy Active Substance with 1-gqiudez-9-methylgluta ryl-coenzyme A reductase inhibitor mechanism of action [...] Problem Status W/U Status Risk Notes Problem Other hammer toe(s) (acquired), right foot (M20.41) Active confirmed Problem Acquired hammer toe of left foot (5723425074210829 ) Other hammer toe(s) (acquired), left foot (M20.42) Active confirmed Problem Polyneuropathy due to type 2 diabetes mellitus (657120254) Type 2 diabetes mellitus with diabetic polyneuropathy (E11.42) Active confirmed Plan Of Treatment Pending Test Test Name Order Date [id number] NAIL, 6 OR MORE 09/27/2020 [id number] NAIL, 1-5 11/29/2020 41430-Dcryxhur Plate 09/27/2020 62218-NCPN SKIN LESIONS, OVER 4 09/27/19 21 [id number] SKIN LESIONS, OVER 4 11/30/19 21 [id number] DYSTROPHIC NAILS ANY # Insurance Providers Payer Name Payer Address Payer Phone Subscriber Number Group Number Insured Name Patient Relationship to Insured Coverage Start Date Coverage End Date Medicare National [employer] [address] [place] [address] [phone] [id number] Naheed Luna Self - patient is the insured [facility] [address] [place] [address] [id number] Naheed Luna Self - patient is the [...] Surgery Date(Month/Year) tonsillectomy and adenoidectomy 1962 D&C [id number] hysterectomy 1978 oopherectomy 1978 appendectomy 1978 cholecystectomy 1979 disc surgeryC-5,C-6,SI,L5 S-1 Vplate ant erior 2002,2006,2008 carpal tunnel surgery 2003,2005 Hospitalization History Reason Date(Month/Year) [facility] hypokalemia, hypo magnesemia, thyroi d toxicosis 09/2020
--- OUTSIDE RECORDS SUMMARY | 2025-04-23 13:02 | XMS_ITS ---
Author Name [facility] Organization Unknown Encounters Encounter Type Encounter Reason Primary Diagnosis Location Date Ambulatory [facility] 09/14/2024 Care Team Organization Name Specialty Phone Email Start Date End Da te [facility] 2024 [facility] Aleksandr Ortiz Primary Care 06/25/2024
--- OUTSIDE RECORDS SUMMARY | 2025-04-23 13:02 | XMS_ITS | Clinical Summary ---
Author Organization [address] [facility] Address [address] [place] [address] Phone Care Team Providers Care Account Services Analyst Name Role Phone Aleksandr Ortiz MD Primary Care Provider [phone] Encounters Date Type Department Care Team Description 04/23/2025 Telephone Gastroenterology - [address] [facility] [address] [place] [address] Jack Walls MD 02/19/2025 Telephone [facility] - [facility] [address] [facility] [address] [place] [address] Aleksandr Ortiz MD from Last 3 Months Surgical History Surgery Date Site/Laterality Comments CHOLECYSTECTOMY PROCEDURE: HISTORICAL CHOLECYSTECTOMY TONSILLECTOMY PROCEDURE: HISTORICAL TONSILLECTOMY; COMMENT: and adenoidectomy HYSTERECTOMY PROCEDURE: HISTORICAL HYSTERECTOMY; COMMENT: [facility] BSO OTHER SURGICAL HISTORY PROCEDURE: HISTORY OTHER; COMMENT: Surgery for relief elev intraocular press cyclocryotherapy APPENDECTOMY PROCEDURE: HISTORICAL APPENDECTOMY; COMMENT: with the [facility]. OTHER SURGICAL HISTORY PROCEDURE: ---- OTHER [...] thyroiditis 03/09/2013 DX:Brannon andra's thyroiditis; COMMENT: Comments: [employer]. Managed by Dr Enriqueta Gabriel guest services officer in [place] Substance dependence, contin uous [place] [place] [facility] [place] 12/10/2017 DX:Substance dependence, co ntinuous ([facility]); COMMENT: Opioids Paresthesia of both legs 06/24/2017 DX:Pare sthesia of both legs Vitamin D deficiency 11/11/2017 DX:Vitamin D deficiency Systemic lupus erythematosus ([facility] V24, [facility] V28) 05/05/2018 DX:Systemic lupus erythemato erica ([facility]); COMMENT: Comments: Was seeing Dr Moreno Raynaud's disease 02/11/2018 DX:Raynaud's d isease 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 DX:Proctalgia f ugax Osteoporosis 12/17/2016 DX:Osteoporosis; COMMENT: Comments: Has Vitamin D Deficieny and is followed by Enriqueta Gabriel MD Bridge Design Engineer Major depression, recurrent [place] [place] 07/11/2011 DX:Major depression, recurre nt ([facility]) Nephrolithiasis 01/25/2010 DX:Nephrolithias is Lumbar degenerative disc disease 06/13/2016 DX:Lumbar degenerative disc disease Irritable bowel syndrome 01/06/2013 DX:Irri table bowel syndrome; COMMENT: Comments: diagnosed by Dr Decker gastroenterology [facility] colonoscopy negative jul 05 2003 for cancer Hypothyroidism 11/11/2017 DX:Hypothyroidis m Hypogammaglobulinemia [place] [place] 01/25/2010 DX:Hypogammaglobulinemia ([facility]); COMMENT: Comments: Was seen by airline captain in 2001 who ruled out multiple myeloma [...] aneurysm of middl e cerebral artery [place] [place] 01/19/2014 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 in [place] put her on BMP a novel medication that according to her caused damage and resulted in surgeries. Her pain management doctor is Dr [place] [phone] Gomez [phone]. Diabetes mellitus type 2, un complicated ([facility] V24, [facility] [place] [facility] [place] 05/05/2018 DX:Diabetes mellitus type 2 , uncomplicated ([facility]) History of Lyme disease 10/13/2018 DX:Histo ry [...] Panel) 08/19/2022 Colorectal Cancer Screening: Colonoscopy 08/19/2022 Falls Risk Assessment 08/19/2022 Hepatitis C Screening 08/19/2022 Osteoporosis Screening (Bone Density Screening) 08/19/2022 Social Influencers of Health Screening 08/19/2022 Diabetes: Annual Urine Albumin-Creatinine Ratio (uACR) 08/31/2022 Diabetes: Blood Sugar Control Test (HGBA1C) 08/31/2022 Hypertension/CHF/CAD Annual BMP Blood Test 08/31/2022 Medicare Annual Wellness Visit 01/11/2024 01/10/2023 Depression Screening 09/16/2024 Influenza Vaccine (#1) 2025 3, 06/18/2020, 06/16/2018, Additional history exists HIB [...] Procedure Name Priority Date/Time Associated Diagnosis Comments [facility] SCREENING DIGITAL Routine 12/01/2018 4:18 PM EDT Encounter for screening mammogram for malignant neoplasm of breast from Last 3 Months or Most Recently Relevant to Health Maintenance Results * [facility] SCREENING DIGITAL (12/01/2018 4:18 PM EDT) Anatomical Region Laterality Modality Mammography 12/01/2018 10:4 8 AM EDT Narrative 12/01/2018 4:18 PM EDT [facility] Diagnostic Imaging Department [address] [place], [place] [id number] Patient: GREERYAIRNAHEED Florinda /Age/Sex: 1955 - 63 - F Unit#: [id number] Location/Status: [facility] Mnemonic/Ordering Site: [facility] Ordering Physician: SHAWNA AC MD [facility] Screening Digital - 12/01/18 - 1139 EXAM: [facility] Screening Digital EXAM DATE AND TIME: 12/01/2018 11:40 AM HISTORY: Screening. COMPARISON: 02/13/17, 04/09/13 TECHNIQUE: CC and MLO views of both breasts were obtained using full field digital mammography. Bilateral digital breast tomosynthesis was performed in the MLO projection. Computer aided detection with the Ignite100 7.2-H was employed. TISSUE DENSITY: a. The breasts are almost entirely fatty. FINDINGS: No suspicious masses, grouped microcalcifications, or areas of architectural distortion are seen. Vascular calcification is present. The skin is unremarkable. IMPRESSION: Stable mammographic appearance of the breasts. No evidence of malignancy is seen. A negative mammogram in the presence of a clinically suspicious palpable abnormality does not preclude the possibility of malignancy or alter the indications for biopsy. BI-RADS: Category 2: Benign RECOMMENDATION(S): 1: Routine screening mammogram BILATERAL in 1 year. 60522, 33472 3342F, 7025F Dictating Physician: URVASHI IBARRA MD Electronically Signed by: URVASHI IBARRA MD Dic Date/Time: 12/01/18 1552 Sign date/Time: 12/01/18 6905 Procedure Note Urvashi Ibarra MD - 09/05/2022 [facility] Diagnostic Imaging Department [address] [place] [address] Patient: NAHEED LUNA Florinda Gonzalez/Age/Sex: 1955 - 63 - F Unit#: [id number] Location/Status[facility] Mnemonic/Ordering Site: [facility] Ordering Physician: SHAWNA AC MD [facility] Screening Digital - 12/01/18 - 1139 EXAM: [facility] Screening Digital EXAM DATE AND TIME: 12/01/2018 11:40 AM HISTORY: Screening. COMPARISON: 02/13/17, 04/09/13 TECHNIQUE: CC and MLO views of both breasts were obtained using fullfield digital mammography. Bilateral digital breast tomosynthesis was performedin the MLO projection. Computer aided detection with the [employer] employed. TISSUE DENSITY: a. The breasts are [...] Routine screening mammogram BILATERAL in 1 year. 59220, 77183 3342F, 7025F Dictating Physician: URVASHI IBARRA MD Electronically Signed by: URVASHI IBARRA MD Dic Date/Time: 12/01/18 5832 Sign date/Time: 12/01/18 3250 Shawna Ac MD IMG BI PROCEDURES Final Res ult from Last 3 Months or Most Recently Relevant to Health Maintenance Insurance MEDICARE [facility] Care Teams Account Services Analyst Relationship Specialty Start Date End Date Aleksandr Ortiz MD PCP - General 08/08/22
--- OUTSIDE RECORDS SUMMARY | 2025-04-23 13:02 | XMS_ITS | Patient Health Record ---
Author Organization [facility] [address] Address [address] [place] [address] Care Team Providers Care Drum Reel Cutter Name Role Phone SHARAN JONES Unavailable [phone] BRENDARED GIL Unavailable [phone] Allergies Allergen (clinical drug ingredient) Drug/Non Drug Allergy documented on EMR Reaction Allergy Type Onset Date Status Substance with 0-vkvztbq-5-methylgl utaryl-coenzyme A reductase inhibitor mechanism of action (substance) statins (uncoded) Unknown Allergy Active denosumab Prolia stomach upset Drug Allergy Act jere azithromycin Azithromycin Unknown Drug Allergy A ctive ciprofloxacin Ciprofloxacin Unknown Drug Allergy Active Results Component Value Reference Range Notes Thyroxine (T4)-[id number] Reviewed date:02/13/2025 02:15:55 PM Interpretation: Performing Lab:[facility], [address] [place] [address], Phone - [phone], Director - MDJodry Notes/Report: Thyroxine (T4) 9.4 4.5-12.0 ug/dL Hemoglobin S4k-[id number] Reviewed date:02/13/2025 02:15:55 PM Interpretation: Performing Lab:[facility], [address] [place] [address], Phone - [phone], Director - MDJodry Notes/Report: Hemoglobin A1c 7.1 4.8-5.6 % . Prediabetes: 5.7 - 6.4 Diabetes: >6.4 Glycemic control for adults with diabetes: <7.0 Vitamin D, 73-Qudycpq-[id number] Reviewed date:02/13/2025 02:15:55 PM Interpretation: Performing Lab:[facility], [address] [place] [address], Phone - [phone], Director - MDJodry Notes/Report: Vitamin D, 25-Hydroxy 95.2 30.0-100.0 ng/mL Vitamin D deficiency has been defined by the [place] of [employer] and an Endocrine Society practice guideline as a level of serum 25-OH vitamin D less than 20 ng/mL (1,2). The Endocrine Society went on to further define vitamin D insufficiency as a level between 21 and 29 ng/mL (2). 1. IOM ([place] of [employer]). 2010. Dietary reference intakes for calcium and D. [place]: The National Academies Press. 2. Rigoberto MF, Russel IQBAL, Chance SIERRA, et al. Evaluation, treatment, and prevention of vitamin D deficiency: an Endocrine Society clinical practice guideline. JCEM. 2010; 96(7):1911-30. Lipid Panel-[id number] Reviewed date:02/13/2025 02:15:55 PM Interpretation: Performing Lab:[facility], [address] [place] [address], Phone - [phone], Director - MDLeoniladry Notes/Report: Cholesterol, Total 191 100-199 mg/dL Triglycerides 279 0-149 mg/dL HDL Cholesterol 36 >39 mg/dL VLDL Cholesterol Stanford 48 5-40 mg/dL LDL Chol Calc (NIH) 107 0-99 mg/dL TSH Rfx on Abnormal to Free [id number] Reviewed date:02/13/2025 02:15:55 PM Interpretation: Performing Lab:[facility], [address] [place] [address], Phone - [phone], Director - MDLeoniladry Notes/Report: TSH 6.190 0.450-4.500 uIU/mL T4,Free (Direct) 1.56 0.82-1.77 ng/dL Comp. Metabolic Panel (14)-3 Reviewed date:02/13/2025 02:15:55 PM Interpretation: Performing Lab:[facility] [place], [address] [place] [address], Phone - [phone], Director - MDJodry Notes/Report: Glucose 117 70-99 mg/dL BUN 10 8-27 mg/dL Creatinine 0.76 0.57-1.00 mg/dL eGFR 84 >59 mL/min/1.73 BUN/Creatinine Ratio 13 12-28 Sodium 143 134-144 mmol/L Potassium 4.1 3.5-5.2 mmol/L Chloride 108 96-106 mmol/L Carbon Dioxide, Total 21 20-29 mmol/L Calcium 9.4 8.7-10.3 mg/dL Protein, Total 6.3 6.0-8.5 g/dL Albumin 3.8 3.8-4.8 g/dL Globulin, Total 2.5 1.5-4.5 g/dL Bilirubin, Total 0.2 0.0-1.2 mg/dL Alkaline Phosphatase 85 44-121 IU/L AST (SGOT) 17 0-40 IU/L ALT (SGPT) 20 0-32 IU/L CBC With Differential/Platel et-[id number] Reviewed date:02/13/2025 02:15:55 PM Interpretation: Performing Lab:[facility], [address] [facility], Phone - [phone], Director - Lalo Notes/Report: WBC 10.4 3.4-10.8 x10E3/uL RBC 4.90 3.77-5.28 x10E6/uL Hemoglobin 13.1 11.1-15.9 g/dL Hematocrit 40.9 34.0-46.6 % MCV 84 79-97 fL MCH 26.7 26.6-33.0 pg MCHC 32.0 31.5-35.7 g/dL RDW 15.7 11.7-15.4 % Platelets 215 150-450 x10E3/uL Neutrophils 65 Not Estab. % Lymphs 23 Not Estab. % Monocytes 8 Not Estab. % Eos 3 Not Estab. % Basos 0 Not Estab. % Neutrophils (Absolute) 6.8 1.4-7.0 x10E3/uL Lymphs (Absolute) 2.3 0.7-3.1 x10E3/uL Monocytes(Absolute) 0.8 0.1-0.9 x10E3/uL Eos (Absolute) 0.3 0.0-0.4 x10E3/uL Baso (Absolute) 0.0 0.0-0.2 x10E3/uL Immature Granulocytes 1 Not Estab. % Immature Grans (Abs) 0.1 0.0-0.1 x10E3/uL Urinalysis, Complete-[id number] Reviewed date:02/13/2025 02:15:55 PM Interpretation: Performing Lab:[facility], [address] [facility], [place], Phone - [phone], Director - Johny Notes/Report: Specific [place] 1.025 1.005-1.030 pH 5.0 5.0-7.5 Urine-Color Yellow Yellow Appearance Cloudy Clear WBC Esterase Negative Negative Protein 1+ Negative/Trace Glucose Negative Negative Ketones Negative Negative Occult Blood Negative Negative Bilirubin Negative Negative Urobilinogen,Semi-Qn 0.2 0.2-1.0 mg/dL Nitrite, Urine Negative Negative Microscopic Examination See below: Micr oscopic was indicated and was performed. WBC 0-5 0 - 5 /hpf RBC None seen 0 - 2 /hpf Epithelial Cells (non renal) >10 0 - 10 /hpf Casts None seen None seen /lpf Crystals Present N/A Crystal Type Calcium Oxalate N/A Bacteria None seen None seen/Few TSH-[id number] Reviewed date:10/21/2024 08:32:30 AM Interpretation: Performing Lab:[facility], [address] [place] [address], Phone - [phone], Director - Lalo Notes/Report: TSH 2.810 0.450-4.500 uIU/mL TSH-[id number] Reviewed date:09/30/2024 08:20:48 AM Interpretation: Performing Lab:[facility] [place], Phone - [phone], Director Jake May Notes/Report: TSH 6.050 0.450-4.500 uIU/mL Hemoglobin L2x-[id number] Reviewed date:10/21/2024 08:32:30 AM Interpretation: Performing Lab:[facility], Phone - [phone], Director - Lalo Notes/Report: Hemoglobin A1c 8.9 4.8-5.6 % . Prediabetes: 5.7 - 6.4 Diabetes: >6.4 Glycemic control for adults with diabetes: <7.0 Hemoglobin N9a-[id number] Reviewed date:09/30/2024 08:20:48 AM Interpretation: Performing Lab:[facility] [place], [address] [place] [address], Phone - [phone], - Lalo Notes/Report: Hemoglobin A1c 9.1 4.8-5.6 % . Prediabetes: 5.7 - 6.4 Diabetes: >6.4 Glycemic control for adults with diabetes: <7.0 Thyroxine (T4)-845830 Reviewed date:09/30/2024 08:20:48 AM Interpretation: Performing Lab:[facility] [place], [address] [facility], [place], Phone - [phone], Director - Lalo Notes/Report: Thyroxine (T4) 10.6 4.5-12.0 ug/dL Thyroxine (T4)-339028 Reviewed date:10/21/2024 08:32:30 AM Interpretation: Performing Lab:[facility] [place], [address] [place], [place], Phone - [phone], Director - Lalo Notes/Report: Thyroxine (T4) 11.2 4.5-12.0 ug/dL Reason For Referral Reason [facility] Diagnosis 1 Chronic stasis derma titis (I87.2) Referral Organization [facility] [address] Referring Provider First Name RED Referring Provider Last Name BECKIE Referring Provider Speciality Internal edicine Referred Provider undefined Referred Provider Specialty Vascular Joao meaghan General Notes Pam Valadez 08:57:33 AM > Referral form faxed to [phone]. Clinical Notes Maria Guadalupe Robert 02:56:33 PM >, Maria Guadalupe oRbert 01/19/2025 02:09:58 PM > The patient was seen on 01/07 and have a follow up appointment on 03/10 Referral Priority Routine Reason echocardiogram Diagnosis 1 Cardiomegaly (I51.7) Referral Organization [facility] [address] Referring Provider First Name SHARAN Referring Provider Last Name KAREN Referring Provider Speciality Internal edicine Referred Provider Specialty Cardiology General Notes Cheyanne Delgdao 02/25 02:51:53 PM >faxed to [facility] at fax #[phone], phone # [phone] Clinical Notes Cheyanne Delgado 02/25 03:00:46 PM > Jakob mane Redena 03/10/2025 08:43:34 AM > The patient was seen on 02/26 and has a follow up on 03/18 at 2 pm Referral Priority Routine Medications Medication SIG (Take, Route, Frequency, Duration) Notes Start Date End Date Status Omeprazole 40 MG 1 capsule 30 minutes before morning meal Orally Once a day; Duration: 90 days 02/16/2025 Active Synthroid 175 MCG 1 tablet in the morning on an empty stomach Orally Once a day; Duration: 90 days Active Journavx 50 MG 50mg Orally every 12 hours; Duration: 30 days Active Mounjaro 2.5 MG/0.5ML 2.5mg Subcutaneous weekly; Duration: 28 days Active Calcium 500 MG 1 tablet with meals Orally Twice a day Unknown CoQ-10 100 MG as directed Orally Unknown Ipratropium-Albuterol 0.5-2. 5 (3) MG/3ML 3 ml as needed Inhalation every 6 hrs Unknown Vitamin C 1000 MG 1 tablet Orally Once a day Unknown ZyrTEC Allergy 10 MG 1 tablet Orally Onc e a day Unknown Magnesium 400 MG as directed Orally Unknown Berberine Complex Un known Sodium Chloride 3 % 4 mL Inhalation Twic e a day Unknown Zinc 100 MG 1 tablet Orally Once a day Unknown Mounjaro 7.5 MG/0.5ML INJECT 7.5 MG UNDE R THE SKIN ONCE WEEKLY; Duration: 28 Active Levalbuterol Tartrate 45 MCG/ACT 1-2 puffs as needed Inhalation every 4 hrs; Duration: 30 days Unknown Multi Vitamin - 1 tablet Orally Once a day Unknown Diflucan 150 MG 1 tablet Orally once weekly; Duration: 84 days 03/02/2024 Unknown Advair HFA 230-21 MCG/ACT 2 puffs Inhala tion Twice a day prn Unknown Vitamin D 25 MCG (1000 UT) 1 tablet Oral ly Once a day Unknown Fluticasone Furoate 50 MCG/ACT 1 puff Inhalation Once a day Unknown Probiotic - as directed Orally Unknown Nystatin 180486 UNIT/GM 1 application Externally Twice a day; Duration: 30 days 08/21/2023 Unknown traMADol HCl 50 MG 1 tablet as needed f or pain Orally every 6 hours; Duration: 30 days 02/16/2025 Active Ondansetron HCl 4 MG 1 tablet as needed for nausea Orally every 12 hours; Duration: 30 days 11/28/2023 Unknown Hydroxychloroquine Sulfate 200 MG TAKE 1 TABLET TWICE A DAY Oral; Duration: 90 Days Unknown Synthroid 200 MCG TAKE 1 TABLET ONCE DAILY INTHE MORNING ON AN EMPTY STOMACH; Duration: 90 Unknown Miconazole Nitrate 2 % 1 application Externally Twice a day; Duration: 30 days 07/08/2024 Unknown predniSONE 20 MG 1 tablet Orally Once a day since being in ED on saturday Unknown Mycophenolate Mofetil 500 MG TAKE 1 TABL ET TWICE A DAY Oral; Duration: 90 Days Unknown Losartan Potassium 25 MG 1 tablet Orally Once a day; Duration: 90 days Unknown Naltrex 4.5 MG as directed Orally Unknown Mucinex 600 MG 1 tablet as needed Orally every 12 hrs Unknown amLODIPine Besylate 10 MG TAKE 1 TABLET ONCE DAILY; Duration: 90 Unknown Fioricet 50-300-40 MG 1 capsule as neede d Orally once a day; Duration: 90 days Unknown Miconazole Antifungal 2 % 1 application Externally Twice a day; Duration: 30 days 07/08/2024 Unknown Plaquenil 200 MG 1 tablet Orally daily Unknown Levothyroxine Sodium 175 MCG 1 tablet in the morning on an empty stomach Orally every other day; Duration: 90 days 09/03/2024 Unknown Synthroid 175 MCG TAKE 1 TABLET EVERY MORNINGON AN EMPTY STOMACH; Duration: 90 Unknown Mounjaro 5 MG/0.5ML INJECT 5 MG (0.5 ML) UNDER THE SKIN ONCE WEEKLY; Duration: 28 Unknown metFORMIN HCl ER 500 MG 1 tablet with ev ening meal Orally Once a day; Duration: 90 days 08/04/2024 Unknown Immunizations Vaccine Route Administration Date Status Comme [...] Status W/U Status Risk Notes Problem Hypothyroidism (59049730) Hypothyroidism, unspecified (E03.9) Active confirmed Problem Obesity (726663638) Other obesity (E66.8) Active confirmed Problem Mixed hyperlipidemia (389711513) Mixed hyperlipidemia (E78.2) Active confirmed Problem Hyperlipidemia (47024246) Hyperlipidemia, unspecified (E78.5) Active confirmed Problem Chronic pain (19501218) Other chronic pain (G89.29) Active confirmed Problem Chronic pain syndrome (905698504) Chronic pain syndrome (G89.4) Active confirmed Problem Cardiomegaly (3351874) Cardiomegaly (I51.7) Active confirmed Problem Systemic lupus erythematosus (04998215) Systemic lupus erythematosus, unspecified (M32.9) Active confirmed Problem Age-related osteoporosis (754045705) Age-related osteoporosis without current pathological fracture (M81.0) Active confirmed Problem Lipid screening (760024978) Encounter for screening for lipoid disorders (Z13.220) Active confirmed Problem Body mass index 35.00 to 39.99 (944588991397256) Body mass index (BMI) 38.0-38.9, adult (Z68.38) Active confirmed Problem Body mass index 35.00 to 39.99 (027030043757071) Body mass index (BMI) 39.0-39.9, adult (Z68.39) Active confirmed Problem Chronic idiopathic constipation (98583247) Chronic idiopathic constipation (K59.04) Active confirmed Problem Morbid obesity (398106547) Morbid obesity (E66.01) Active confirmed Problem Disorder due to type 2 diabetes mellitus (272796169) Type 2 diabetes mellitus with complication, unspecified whether medical terminologist insulin use (E11.8) Active confirmed Problem Acquired hypothyroidism (911109599) Acquired hypothyroidism (E03.9) Active confirmed Problem Adult health examination (340076602) Adult general medical exam (Z00.00) Active confirmed Problem Vitamin D deficiency (78032947) Vitamin D deficiency (E55.9) Active confirmed Problem Essential hypertension (53150923) Hypertension, unspecified type (I10) Active confirmed Problem Type II diabetes mellitus without complication (105338420) Type 2 diabetes mellitus without complication, without long-term current use of insulin (E11.9) Active confirmed Problem Obesity (193851614) Obesity (BMI 30-39.9) (E66.9) Active confirmed Problem Progressive fibrosing interstitial lung disease (disorder) (553126820401128) Interstitial lung disease with progressive fibrotic phenotype in diseases classified elsewhere (J84.170) Active confirmed Problem Obese class II (177365402661640) BMI 35.0-35.9,adult (Z68.35) Active confirmed Problem Pulmonary fibrosis (97598391) Pulmonary fibrosis (J84.10) Active confirmed Problem Body mass index 40+ - severely obese (063470443) Body mass index [BMI] 40.0-44.9, adult (Z68.41) Active confirmed Problem Chronic venous insufficiency (14838484) Chronic venous insufficiency (I87.2) Active confirmed Problem Avitaminosis D (62631948) Avitaminosis D (E55.9) Active confirmed Problem Abnormal metabolic state due to diabetes mellitus (127180585) Abnormal metabolic state due to diabetes mellitus (E11.9) Active confirmed Problem Chronic interstitial cystitis (677664747) Interstitial cystitis (N30.10) Active confirmed Problem Other osteoporosis with current pathological fracture with routine healing, subsequent encounter (M80.80XD) Active confirmed Problem Peripheral venous insufficiency (95814017) Chronic stasis dermatitis (I87.2) Active confirmed Vital Signs Heart Rate 82 /min 02/15/2025 Oximetry 98 % 02/15/2025 Blood pressure diastolic 86 mm Hg 02/15/2025 Height 66 in 02/15/2025 Blood pressure systolic 128 mm Hg 02/15/2025 Weight 246 lbs 02/15/2025 BMI 39.7 kg/m2 02/15/2025 Encounters Encounter Location Date Provider Diagnosis [facility] [address] [place] [address] 07/08/2024 TALAL KAREN Chronic pain syndrom e G89.4 ; Type 2 diabetes mellitus with complication, unspecified whether medical terminologist insulin use E11.8 ; Hyperlipidemia, unspecified E78.5 ; Age-related osteoporosis without current pathological fracture M81.0 and Lupus M32.9 [facility] [address] [address] 09/15/2024 [place] Atypical chest pain R07.89 ; Bilateral lower extremity edema R60.0 ; Chronic venous insufficiency I87.2 ; Acquired hypothyroidism E03.9 ; Abnormal metabolic state due to diabetes mellitus E11.9 and Hypothyroidism, unspecified E03.9 [facility] [address] [address] 10/06/2024 [place] Atypical chest pain R07.89 ; Acquired hypothyroidism E03.9 ; Bilateral lower extremity edema R60.0 ; Chronic venous insufficiency I87.2 ; Abnormal metabolic state due to diabetes mellitus E11.9 ; Pulmonary fibrosis J84.10 and Hypothyroidism, unspecified E03.9 [facility] [address] [address] 12/11/2024 [place] Atypical chest pain R07.89 ; Acquired hypothyroidism E03.9 ; Bilateral lower extremity edema R60.0 ; Chronic venous insufficiency I87.2 ; Abnormal metabolic state due to diabetes mellitus E11.9 ; Pulmonary fibrosis J84.10 ; Hypothyroidism, unspecified E03.9 and Chronic pain syndrome G89.4 [facility] [address] [address] 02/15/2025 [place] Annual physical exam Z00.00 ; Encounter for screening for depression Z13.31 ; Encounter for screening for other disorder Z13.89 ; Advanced directives, counseling/discussion Z71.89 ; Acquired hypothyroidism E03.9 ; Bilateral lower extremity edema R60.0 ; Chronic venous insufficiency I87.2 ; Pulmonary fibrosis J84.10 ; Hypothyroidism, unspecified E03.9 ; Chronic pain syndrome G89.4 ; Encounter for examination of blood pressure without abnormal findings Z01.30 and Mild cardiomegaly I51.7 [facility] [address] [address] 04/24/2024 TALAL JONES [facility] [address] 07/08/2024 TALAL JONES [facility] [address] 07/08/2024 TALAL JONES [facility] [address] [place], [place] 07/10/2024 TALAL JONES Chronic pain syndrom e G89.[address] [facility] [address] [place] [address] 07/28/2024 TALAL JONES [facility] [address] 08/03/2024 TALAL JONES [facility] [address] [place] 09/01/2024 TALAL JONES [facility] [address] [place] 09/14/2024 [place] [facility] [address] [address] 09/17/2024 [place] Atypical chest pain R07.89 [facility] [address] [address] 09/18/2024 [place] Atypical chest pain R07.[address] [facility] [address] [place] [address] 09/28/2024 TALDHEERAJ JONES [facility] [address] [place] [address] 10/14/2024 [place] [facility] [address] [place] [address] 10/15/2024 [place] [facility] [address] [place] [address] 10/15/2024 [place] [facility] [address] [place] [address] 10/22/2024 [place] [facility] [address] [place] [address] 12/24/2024 [place] [facility] [address] [place] [address] 12/24/2024 [place] [facility] [address] [place] [address] 01/07/2025 [place] [facility] [address] [place] [address] 02/25/2025 RED ORTEGAT Cardiomegaly I51.7 [facility] [address] [place] [address] 03/31/2025 TALDHEERAJ FUENTESAN [facility] [address] [place] [address] 09/18/2024 TALDHEERAJ FUENTESAN [facility] [address] [place] [address] 02/16/2025 [place] Assessments Encounter Date Diagnosis (ICD Code) Assessment Notes Treatment Notes Treatment Clinical Notes Section Notes 07/10/2024 Chronic pain syndrome (ICD-10 - G89.4) [...] software and direct typing Please excuse inadvertent medical transcription editor or typing errors, or uncorrected word substitutions Although every attempt has been made by the provider to proofread this document, occasional misspellings and typographical errors may still be present Due to the previous pandemic, and the use of personal protective equipment (PPE) This may decrease voice recognition accuracy Inadvertent medical transcription editor errors may occur 09/15/2024 Bilateral lower extremity [...] software and direct typing Please excuse inadvertent medical transcription editor or typing errors, or uncorrected word substitutions Although every attempt has been made by the provider to proofread this document, occasional misspellings and typographical errors may still be present Due to the previous pandemic, and the use of personal protective equipment (PPE) This may decrease voice recognition accuracy Inadvertent medical transcription editor errors may occur 09/17/2024 Atypical chest pain [...] software and direct typing Please excuse inadvertent medical transcription editor or typing errors, or uncorrected word substitutions Although every attempt has been made by the provider to proofread this document, occasional misspellings and typographical errors may still be present Due to the previous pandemic, and the use of personal protective equipment (PPE) This may decrease voice recognition accuracy Inadvertent medical transcription editor errors may occur 10/06/2024 Atypical chest pain [...] software and direct typing Please excuse inadvertent medical transcription editor or typing errors, or uncorrected word substitutions Although every attempt has been made by the provider to proofread this document, occasional misspellings and typographical errors may still be present Due to the previous pandemic, and the use of personal protective equipment (PPE) This may decrease voice recognition accuracy Inadvertent medical transcription editor errors may occur 12/11/2024 Atypical chest pain [...] software and direct typing Please excuse inadvertent medical transcription editor or typing errors, or uncorrected word substitutions Although every attempt has been made by the provider to proofread this document, occasional misspellings and typographical errors may still be present Due to the previous pandemic, and the use of personal protective equipment (PPE) This may decrease voice recognition accuracy Inadvertent medical transcription editor errors may occur 02/15/2025 Encounter for screening for depression (ICD-10 - Z13.31) Acute Concerns/Problem List: 02/15/2025 Lets get an echocardiogram has been some years since her last one and we will assess given her recent cardiomegaly, to look at wall motion and EF as well as any valvular abnormalities Doing well on Mounjaro 7.5 mg Good glycemic improvement Continue 175 mcg of Synthroid Please follow-up with all of your subspecialists Of note, some information is being carried forward from prior records for informational purposes only and is being cited so that efficiency, safety and quality of the patient's care is not compromised This note was prepared using voice recognition software and direct typing Please excuse inadvertent medical transcription editor or typing errors, or uncorrected word substitutions Although every attempt has been made by the provider to proofread this document, occasional misspellings and typographical errors may still be present Due to the previous pandemic, and the use of personal protective equipment (PPE) This may decrease voice recognition accuracy Inadvertent medical transcription editor errors may occur 02/15/2025 Annual physical exam (ICD-10 - Z00.00) Acute Concerns/Problem List: 02/15/2025 Lets get an echocardiogram has been some years since her last one and we will assess given her recent cardiomegaly, to look at wall motion and EF as well as any valvular abnormalities Doing well on Mounjaro 7.5 mg Good glycemic improvement Continue 175 mcg of Synthroid Please follow-up with all of your subspecialists Of note, some information is being carried forward from prior records for informational purposes only and is being cited so that efficiency, safety and quality of the patient's care is not compromised This note was prepared using voice recognition software and direct typing Please excuse inadvertent medical transcription editor or typing errors, or uncorrected word substitutions Although every attempt has been made by the provider to proofread this document, occasional misspellings and typographical errors may still be present Due to the previous pandemic, and the use of personal protective equipment (PPE) This may decrease voice recognition accuracy Inadvertent medical transcription editor errors may occur 02/25/2025 Cardiomegaly (ICD-10 - I51.7) 07/08/2024 Chronic pain syndrome (ICD-10 - G89.4) [...] of them. 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 Please follow-up on oncology notes consider repeat EKGs regularly to monitor QT intervals blood work and follow-up advised 07/08/2024 Type 2 diabetes mellitus with complication, unspecified whether medical terminologist insulin use (ICD-10 - E11.8) Patient with [...] of them. 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 Please follow-up on oncology notes consider repeat EKGs regularly to monitor QT intervals blood work and follow-up advised 12/11/2024 Acquired hypothyroidism (ICD-10 - E03.9) Acute [...] software and direct typing Please excuse inadvertent medical transcription editor or typing errors, or uncorrected word substitutions Although every attempt has been made by the provider to proofread this document, occasional misspellings and typographical errors may still be present Due to the previous pandemic, and the use of personal protective equipment (PPE) This may decrease voice recognition accuracy Inadvertent medical transcription editor errors may occur 07/08/2024 Hyperlipidemia, unspecified (ICD-10 [...] of them. 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 Please follow-up on oncology notes consider repeat EKGs regularly to monitor QT intervals blood work and follow-up advised 02/15/2025 Encounter for screening for other disorder (ICD-10 - Z13.89) Acute Concerns/Problem List: 02/15/2025 Lets get an echocardiogram has been some years since her last one and we will assess given her recent cardiomegaly, to look at wall motion and EF as well as any valvular abnormalities Doing well on Mounjaro 7.5 mg Good glycemic improvement Continue 175 mcg of Synthroid Please follow-up with all of your subspecialists Of note, some information is being carried forward from prior records for informational purposes only and is being cited so that efficiency, safety and quality of the patient's care is not compromised This note was prepared using voice recognition software and direct typing Please excuse inadvertent medical transcription editor or typing errors, or uncorrected word substitutions Although every attempt has been made by the provider to proofread this document, occasional misspellings and typographical errors may still be present Due to the previous pandemic, and the use of personal protective equipment (PPE) This may decrease voice recognition accuracy Inadvertent medical transcription editor errors may occur 12/11/2024 Bilateral lower extremity [...] software and direct typing Please excuse inadvertent medical transcription editor or typing errors, or uncorrected word substitutions Although every attempt has been made by the provider to proofread this document, occasional misspellings and typographical errors may still be present Due to the previous pandemic, and the use of personal protective equipment (PPE) This may decrease voice recognition accuracy Inadvertent medical transcription editor errors may occur 10/06/2024 Bilateral lower extremity [...] software and direct typing Please excuse inadvertent medical transcription editor or typing errors, or uncorrected word substitutions Although every attempt has been made by the provider to proofread this document, occasional misspellings and typographical errors may still be present Due to the previous pandemic, and the use of personal protective equipment (PPE) This may decrease voice recognition accuracy Inadvertent medical transcription editor errors may occur 09/15/2024 Chronic venous insufficiency [...] software and direct typing Please excuse inadvertent medical transcription editor or typing errors, or uncorrected word substitutions Although every attempt has been made by the provider to proofread this document, occasional misspellings and typographical errors may still be present Due to the previous pandemic, and the use of personal protective equipment (PPE) This may decrease voice recognition accuracy Inadvertent medical transcription editor errors may occur 10/06/2024 Chronic venous insufficiency [...] software and direct typing Please excuse inadvertent medical transcription editor or typing errors, or uncorrected word substitutions Although every attempt has been made by the provider to proofread this document, occasional misspellings and typographical errors may still be present Due to the previous pandemic, and the use of personal protective equipment (PPE) This may decrease voice recognition accuracy Inadvertent medical transcription editor errors may occur 09/15/2024 Acquired hypothyroidism (ICD-10 [...] software and direct typing Please excuse inadvertent medical transcription editor or typing errors, or uncorrected word substitutions Although every attempt has been made by the provider to proofread this document, occasional misspellings and typographical errors may still be present Due to the previous pandemic, and the use of personal protective equipment (PPE) This may decrease voice recognition accuracy Inadvertent medical transcription editor errors may occur 12/11/2024 Chronic venous insufficiency [...] software and direct typing Please excuse inadvertent medical transcription editor or typing errors, or uncorrected word substitutions Although every attempt has been made by the provider to proofread this document, occasional misspellings and typographical errors may still be present Due to the previous pandemic, and the use of personal protective equipment (PPE) This may decrease voice recognition accuracy Inadvertent medical transcription editor errors may occur 02/15/2025 Advanced directives, counseling/discuss ion (ICD-10 - Z71.89) Acute Concerns/Problem List: 02/15/2025 Lets get an echocardiogram has been some years since her last one and we will assess given her recent cardiomegaly, to look at wall motion and EF as well as any valvular abnormalities Doing well on Mounjaro 7.5 mg Good glycemic improvement Continue 175 mcg of Synthroid Please follow-up with all of your subspecialists Of note, some information is being carried forward from prior records for informational purposes only and is being cited so that efficiency, safety and quality of the patient's care is not compromised This note was prepared using voice recognition software and direct typing Please excuse inadvertent medical transcription editor or typing errors, or uncorrected word substitutions Although every attempt has been made by the provider to proofread this document, occasional misspellings and typographical errors may still be present Due to the previous pandemic, and the use of personal protective equipment (PPE) This may decrease voice recognition accuracy Inadvertent medical transcription editor errors may occur 07/08/2024 Age-related osteoporosis without current pathological fracture [...] of them. 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 Please follow-up on oncology notes consider repeat EKGs regularly to monitor QT intervals blood work and follow-up advised 02/15/2025 Acquired hypothyroidism (ICD-10 - E03.9) Acute Concerns/Problem List: 02/15/2025 Lets get an echocardiogram has been some years since her last one and we will assess given her recent cardiomegaly, to look at wall motion and EF as well as any valvular abnormalities Doing well on Mounjaro 7.5 mg Good glycemic improvement Continue 175 mcg of Synthroid Please follow-up with all of your subspecialists Of note, some information is being carried forward from prior records for informational purposes only and is being cited so that efficiency, safety and quality of the patient's care is not compromised This note was prepared using voice recognition software and direct typing Please excuse inadvertent medical transcription editor or typing errors, or uncorrected word substitutions Although every attempt has been made by the provider to proofread this document, occasional misspellings and typographical errors may still be present Due to the previous pandemic, and the use of personal protective equipment (PPE) This may decrease voice recognition accuracy Inadvertent medical transcription editor errors may occur 12/11/2024 Abnormal metabolic state [...] software and direct typing Please excuse inadvertent medical transcription editor or typing errors, or uncorrected word substitutions Although every attempt has been made by the provider to proofread this document, occasional misspellings and typographical errors may still be present Due to the previous pandemic, and the use of personal protective equipment (PPE) This may decrease voice recognition accuracy Inadvertent medical transcription editor errors may occur 10/06/2024 Abnormal metabolic state [...] software and direct typing Please excuse inadvertent medical transcription editor or typing errors, or uncorrected word substitutions Although every attempt has been made by the provider to proofread this document, occasional misspellings and typographical errors may still be present Due to the previous pandemic, and the use of personal protective equipment (PPE) This may decrease voice recognition accuracy Inadvertent medical transcription editor errors may occur 09/15/2024 Abnormal metabolic state [...] software and direct typing Please excuse inadvertent medical transcription editor or typing errors, or uncorrected word substitutions Although every attempt has been made by the provider to proofread this document, occasional misspellings and typographical errors may still be present Due to the previous pandemic, and the use of personal protective equipment (PPE) This may decrease voice recognition accuracy Inadvertent medical transcription editor errors may occur 12/11/2024 Pulmonary fibrosis (ICD-10 [...] software and direct typing Please excuse inadvertent medical transcription editor or typing errors, or uncorrected word substitutions Although every attempt has been made by the provider to proofread this document, occasional misspellings and typographical errors may still be present Due to the previous pandemic, and the use of personal protective equipment (PPE) This may decrease voice recognition accuracy Inadvertent medical transcription editor errors may occur 10/06/2024 Pulmonary fibrosis (ICD-10 [...] software and direct typing Please excuse inadvertent medical transcription editor or typing errors, or uncorrected word substitutions Although every attempt has been made by the provider to proofread this document, occasional misspellings and typographical errors may still be present Due to the previous pandemic, and the use of personal protective equipment (PPE) This may decrease voice recognition accuracy Inadvertent medical transcription editor errors may occur 02/15/2025 Bilateral lower extremity edema (ICD-10 - R60.0) Acute Concerns/Problem List: 02/15/2025 Lets get an echocardiogram has been some years since her last one and we will assess given her recent cardiomegaly, to look at wall motion and EF as well as any valvular abnormalities Doing well on Mounjaro 7.5 mg Good glycemic improvement Continue 175 mcg of Synthroid Please follow-up with all of your subspecialists Of note, some information is being carried forward from prior records for informational purposes only and is being cited so that efficiency, safety and quality of the patient's care is not compromised This note was prepared using voice recognition software and direct typing Please excuse inadvertent medical transcription editor or typing errors, or uncorrected word substitutions Although every attempt has been made by the provider to proofread this document, occasional misspellings and typographical errors may still be present Due to the previous pandemic, and the use of personal protective equipment (PPE) This may decrease voice recognition accuracy Inadvertent medical transcription editor errors may occur 02/15/2025 Chronic venous insufficiency (ICD-10 - I87.2) Acute Concerns/Problem List: 02/15/2025 Lets get an echocardiogram has been some years since her last one and we will assess given her recent cardiomegaly, to look at wall motion and EF as well as any valvular abnormalities Doing well on Mounjaro 7.5 mg Good glycemic improvement Continue 175 mcg of Synthroid Please follow-up with all of your subspecialists Of note, some information is being carried forward from prior records for informational purposes only and is being cited so that efficiency, safety and quality of the patient's care is not compromised This note was prepared using voice recognition software and direct typing Please excuse inadvertent medical transcription editor or typing errors, or uncorrected word substitutions Although every attempt has been made by the provider to proofread this document, occasional misspellings and typographical errors may still be present Due to the previous pandemic, and the use of personal protective equipment (PPE) This may decrease voice recognition accuracy Inadvertent medical transcription editor errors may occur 12/11/2024 Hypothyroidism, unspecified (ICD-10 [...] software and direct typing Please excuse inadvertent medical transcription editor or typing errors, or uncorrected word substitutions Although every attempt has been made by the provider to proofread this document, occasional misspellings and typographical errors may still be present Due to the previous pandemic, and the use of personal protective equipment (PPE) This may decrease voice recognition accuracy Inadvertent medical transcription editor errors may occur 09/15/2024 Hypothyroidism, unspecified (ICD-10 [...] software and direct typing Please excuse inadvertent medical transcription editor or typing errors, or uncorrected word substitutions Although every attempt has been made by the provider to proofread this document, occasional misspellings and typographical errors may still be present Due to the previous pandemic, and the use of personal protective equipment (PPE) This may decrease voice recognition accuracy Inadvertent medical transcription editor errors may occur 12/11/2024 Chronic pain syndrome [...] software and direct typing Please excuse inadvertent medical transcription editor or typing errors, or uncorrected word substitutions Although every attempt has been made by the provider to proofread this document, occasional misspellings and typographical errors may still be present Due to the previous pandemic, and the use of personal protective equipment (PPE) This may decrease voice recognition accuracy Inadvertent medical transcription editor errors may occur 10/06/2024 Hypothyroidism, unspecified (ICD-10 [...] software and direct typing Please excuse inadvertent medical transcription editor or typing errors, or uncorrected word substitutions Although every attempt has been made by the provider to proofread this document, occasional misspellings and typographical errors may still be present Due to the previous pandemic, and the use of personal protective equipment (PPE) This may decrease voice recognition accuracy Inadvertent medical transcription editor errors may occur 02/15/2025 Pulmonary fibrosis (ICD-10 - J84.10) Acute Concerns/Problem List: 02/15/2025 Lets get an echocardiogram has been some years since her last one and we will assess given her recent cardiomegaly, to look at wall motion and EF as well as any valvular abnormalities Doing well on Mounjaro 7.5 mg Good glycemic improvement Continue 175 mcg of Synthroid Please follow-up with all of your subspecialists Of note, some information is being carried forward from prior records for informational purposes only and is being cited so that efficiency, safety and quality of the patient's care is not compromised This note was prepared using voice recognition software and direct typing Please excuse inadvertent medical transcription editor or typing errors, or uncorrected word substitutions Although every attempt has been made by the provider to proofread this document, occasional misspellings and typographical errors may still be present Due to the previous pandemic, and the use of personal protective equipment (PPE) This may decrease voice recognition accuracy Inadvertent medical transcription editor errors may occur 02/15/2025 Hypothyroidism, unspecified (ICD-10 - E03.9) Acute Concerns/Problem List: 02/15/2025 Lets get an echocardiogram has been some years since her last one and we will assess given her recent cardiomegaly, to look at wall motion and EF as well as any valvular abnormalities Doing well on Mounjaro 7.5 mg Good glycemic improvement Continue 175 mcg of Synthroid Please follow-up with all of your subspecialists Of note, some information is being carried forward from prior records for informational purposes only and is being cited so that efficiency, safety and quality of the patient's care is not compromised This note was prepared using voice recognition software and direct typing Please excuse inadvertent medical transcription editor or typing errors, or uncorrected word substitutions Although every attempt has been made by the provider to proofread this document, occasional misspellings and typographical errors may still be present Due to the previous pandemic, and the use of personal protective equipment (PPE) This may decrease voice recognition accuracy Inadvertent medical transcription editor errors may occur 02/15/2025 Chronic pain syndrome (ICD-10 - G89.4) Acute Concerns/Problem List: 02/15/2025 Lets get an echocardiogram has been some years since her last one and we will assess given her recent cardiomegaly, to look at wall motion and EF as well as any valvular abnormalities Doing well on Mounjaro 7.5 mg Good glycemic improvement Continue 175 mcg of Synthroid Please follow-up with all of your subspecialists Of note, some information is being carried forward from prior records for informational purposes only and is being cited so that efficiency, safety and quality of the patient's care is not compromised This note was prepared using voice recognition software and direct typing Please excuse inadvertent medical transcription editor or typing errors, or uncorrected word substitutions Although every attempt has been made by the provider to proofread this document, occasional misspellings and typographical errors may still be present Due to the previous pandemic, and the use of personal protective equipment (PPE) This may decrease voice recognition accuracy Inadvertent medical transcription editor errors may occur 02/15/2025 Encounter for examination of blood pressure without abnormal findings (ICD-10 - Z01.30) Acute Concerns/Problem List: 02/15/2025 Lets get an echocardiogram has been some years since her last one and we will assess given her recent cardiomegaly, to look at wall motion and EF as well as any valvular abnormalities Doing well on Mounjaro 7.5 mg Good glycemic improvement Continue 175 mcg of Synthroid Please follow-up with all of your subspecialists Of note, some information is being carried forward from prior records for informational purposes only and is being cited so that efficiency, safety and quality of the patient's care is not compromised This note was prepared using voice recognition software and direct typing Please excuse inadvertent medical transcription editor or typing errors, or uncorrected word substitutions Although every attempt has been made by the provider to proofread this document, occasional misspellings and typographical errors may still be present Due to the previous pandemic, and the use of personal protective equipment (PPE) This may decrease voice recognition accuracy Inadvertent medical transcription editor errors may occur 02/15/2025 Mild cardiomegaly (ICD-10 - I51.7) Acute Concerns/Problem List: 02/15/2025 Lets get an echocardiogram has been some years since her last one and we will assess given her recent cardiomegaly, to look at wall motion and EF as well as any valvular abnormalities Doing well on Mounjaro 7.5 mg Good glycemic improvement Continue 175 mcg of Synthroid Please follow-up with all of your subspecialists Of note, some information is being carried forward from prior records for informational purposes only and is being cited so that efficiency, safety and quality of the patient's care is not compromised This note was prepared using voice recognition software and direct typing Please excuse inadvertent medical transcription editor or typing errors, or uncorrected word substitutions Although every attempt has been made by the provider to proofread this document, occasional misspellings and typographical errors may still be present Due to the previous pandemic, and the use of personal protective equipment (PPE) This may decrease voice recognition accuracy Inadvertent medical transcription editor errors may occur Plan Of Treatment Pending Test Test Name Order Date Echocardiogram 02/25/2025 Hemoglobin A1c 07/15/2019 Lipid Panel 07/15/2019 Comp. Metabolic Panel (14) 07/15/2019 CBC 07/15/2019 Bone Density 06/22/2022 Urinalysis 07/15/2019 CBC (COMPLETE BLOOD COUNT) 02/17/2018 COMPREHENSIVE METABOLIC PANEL 02/17/2018 HEMOGLOBIN A1C 02/17/2018 URINALYSIS, COMPLETE 02/17/2018 XR Ribs w Chest 3+ Views RT 09/23/2019 LIPID PANEL, STANDARD 04/29/2023 LIPID PANEL, STANDARD 12/11/2024 LIPID PANEL, STANDARD 09/03/2022 COMPREHENSIVE METABOLIC PANEL 09/03/2022 COMPREHENSIVE METABOLIC PANEL 04/29/2023 COMPREHENSIVE METABOLIC PANEL 12/11/2024 MAGNESIUM 07/10/2024 CBC (INCLUDES DIFF/PLT) 09/03/2022 CBC (INCLUDES DIFF/PLT) 12/11/2024 URINALYSIS, COMPLETE 04/29/2023 URINALYSIS, COMPLETE 12/11/2024 URINALYSIS, COMPLETE 09/03/2022 HEMOGLOBIN A1c 09/03/2022 HEMOGLOBIN A1c 10/06/2024 HEMOGLOBIN A1c 09/15/2024 HEMOGLOBIN A1c 04/29/2023 HEMOGLOBIN A1c 12/11/2024 T4, FREE 04/29/2023 T4 (THYROXINE), TOTAL 12/11/2024 T4 (THYROXINE), TOTAL 09/15/2024 T4 (THYROXINE), TOTAL 10/06/2024 TSH 10/06/2024 TSH 09/03/2022 TSH 09/15/2024 TSH 04/29/2023 TSH W/REFLEX TO FT4 12/11/2024 VITAMIN D,25-OH,TOTAL,IA 12/11/2024 VITAMIN D,25-OH,TOTAL,IA 09/03/2022 Next Appt Details Provider Name:RED BUTTS, 05/25/2025 11:00:00 AM, [address] [facility], [facility] [address], [place], [address], Insurance Providers Payer Name Payer Address Payer Phone Subscriber Number Group Number Insured Name Patient Relationship to Insured Coverage Start Date Coverage End Date Medicare Part B J14 [address] [place] [address] [id number] JB ARGUELLO Self - patient is the insured 8 [facility] [address] [place] [address] [id number] JB ARGUELLO Self - patient is the insured 0 Medications Administered Medication Instructions Date of Administration Dosage Notes MICC B12 INJECTION 04/24/2022 lot # [id number] MICC B12 INJECTION 05/08/2022 1 mL Lot #: [id number] MICC B12 INJECTION 05/23/2022 lot @ [id number] MICC B12 INJECTION 06/05/2022 1 mL Lot #: [id number] MICC B12 INJECTION 06/19/2022 lot # [id number] MICC B12 INJECTION 06/26/2022 lot # [id number] MICC B12 INJECTION 07/03/2022 1 mL Lot #: [id number] MICC B12 INJECTION 07/10/2022 lot # [id number] MICC B12 INJECTION 07/17/2022 lot # [id number] MICC B12 INJECTION 07/24/2022 MICC B12 INJECTION 07/31/2022 [id number] MICC B12 INJECTION 08/07/2022 lot # [id number] MICC B12 INJECTION 08/14/2022 MICC B12 INJECTION 08/21/2022 1 mL Lot #: [id number] MICC B12 INJECTION 08/28/2022 MICC B12 INJECTION 09/03/2022 lot # [id number] MICC B12 INJECTION 09/12/2022 lot [id number] MICC B12 INJECTION 09/19/2022 1 mL Lot #: [id number] MICC B12 INJECTION 09/26/2022 1 mL Lot # [id number] MICC B12 INJECTION 10/03/2022 lot # [id number] MICC B12 INJECTION 10/10/2022 1 mL Lot #: [id number] MICC B12 INJECTION 10/17/2022 1 mL Lot #: [id number] MICC B12 INJECTION 10/24/2022 MICC B12 INJECTION 10/31/2022 [id number] MICC B12 INJECTION 11/07/2022 lot # [id number] MICC B12 INJECTION 11/14/2022 1 mL Lot # [id number] MICC B12 INJECTION 11/21/2022 1 mL Lot # [id number] MICC B12 INJECTION 11/28/2022 [id number] MICC B12 INJECTION 12/05/2022 lot# [id number] MICC B12 INJECTION 12/12/2022 [id number] MICC B12 INJECTION 01/23/2023 1 mL Lot #: [id number] MICC B12 INJECTION 01/30/2023 lot # [id number] MICC B12 INJECTION 02/06/2023 1 mL Lot # [id number] MICC B12 INJECTION 02/13/2023 lot # [id number] MICC B12 INJECTION 02/20/2023 1 mL Lot # [id number] Prolia 05/09/2023 1 Medical (General) History Medical History History ICD Code Hypothyroidism asthma lupus anemia brain anuerysm Pulmonary fibrosis Osteoporosis Surgical History Surgery Date(Month/Year) carpal tunnel release colonoscopy 3 years hysterectomy 1978 gallbladder 1979 Hospitalization History Reason Date(Month/Year) [facility]- BLE edema, 2023 COVID 2020
--- OUTSIDE RECORDS SUMMARY | 2025-04-23 13:02 | XMS_ITS | Clinical Summary ---
Author Organization [facility] Address [address] [place] [address] Care Team Providers Care Makeup Sales Advisor Name Role Phone Shawna Ac MD Primary Care Provider [phone] Allergies Active Allergy Reactions Criticality Noted Date [...] - PCV) 2018 06/24/2017 Influenza Vaccine (#1) 2025 0, 06/16/2018, 06/24/2017, Additional history exists RSV Adult > 60+ Yrs or (1 - 1-dose 75+ series) 2028 Hepatitis B Vaccines Aged Out No long er eligible based on patient's age to complete this topic RSV Ped < 20 months Aged Out No longe r eligible based on patient's age to complete this topic Care Teams Makeup Sales Advisor Relationship Specialty Start Date End Date Shawna Ac MD [address] [place] [address] PCP - General Family Medicine 01/19/22
--- OUTSIDE RECORDS SUMMARY | 2025-04-23 13:02 | XMS_ITS | Clinical Summary ---
Author Organization [facility], Address [address] [place] [address] Phone Care Team Providers Care Supervisor Cereal Name Role Phone Shawna Ac MD Primary Care Provider [phone] Allergies Active Allergy Reactions Criticality Noted Date [...] Visual Foot Exam 10/16/2020 Influenza Vaccine (#1) 2025 06/18/2020 Hepatitis B Vaccine Aged Out No longe r eligible based on patient's age to complete this topic Insurance Medicare [facility] Care Teams Supervisor Cereal Relationship Specialty Start Date End Date Shawna Ac MD [address] [place] [address] PCP - General 09/26/20
--- NOTE | 2025-04-23 15:10 | PC.NURSE ---
Pt ambulated to restroom with no issues, provided stool sample. Quang THOMAS currently at bedside.
[2025-04-23 15:28] VITALS: BP 149/62; PULSE 79; RESP 16; O2SAT 97
--- NOTE | 2025-04-23 15:29 | PM.CNGS ---
History of Present Illness Consult details Consult date: 04/23/25 Narrative: 69-year-old female with multiple medical problems including a clonal gammopathy, obstructive sleep apnea, hypogammaglobulinemia, pulmonary fibrosis, hypertension, here in the ER because of lower abdominal pain. She says she has had this for about 4 days now. She says that has a long history of diverticulitis as well as IBS so she initially did not come to the ER as she thought that it may be her IBS. Her pain had persisted and she describes it as ?severe?. She describes watery stools multiple times a day. She says that anything she eats comes out immediately as well. She has some nausea without any vomiting. She denies any fever. Currently she says she feels better although still admits to having pain. Review of Systems Constitutional: Constitutional: Denies chills and Denies fever(s) Cardiovascular: Cardiovascular: Denies chest pain, Reports dyspnea and Reports dyspnea on exertion Respiratory: Respiratory: Denies cough, Reports dyspnea and Reports dyspnea on exertion Gastrointestinal: Gastrointestinal: Denies hematochezia and Denies change in bowel habits Comments: Watery stools Genitourinary: Genitourinary: Denies hematuria Musculoskeletal: Musculoskeletal: Denies back pain and Denies limited range of motion Neurologic: Denies focal weakness and Denies convulsions Psychiatric: Psychiatric: Denies depression and Denies mood swings PMFSH Past Medical History Medical History Irritable bowel syndrome Multiple sclerosis Raynaud's disease Lower abdominal pain Abnormal finding on EKG MAURO treated with BiPAP Hypogammaglobulinemia Asthma Lupus Pneumonitis Pulmonary fibrosis Family History Family History Maternal Aunt Brain abscess Bone cancer Maternal Aunt Lung cancer Melanoma Maternal Uncle Melanoma Bone cancer Lung cancer Mother Thyroid cancer Uterine cancer Social History Social History Household Members: Spouse Housing: House Do you presently have visiting nurse or other home services: No Alcohol intake: current Alcohol intake frequency: does not drink Comment: pt now denies hx of falls - Patient Tobacco Use Status: Former Tobacco user Tobacco use type: Cigarette Years Smoked: 20 Years Smoked in Last 30 Days: No e-Cigarette/Vaping Use: Never Used Currently Displaying Signs/Symptoms of Drug Intoxication Withdrawal: No Do you feel safe in your current relationship?: Yes Are you made to feel afraid or neglected: No Advance Directives: No Advance Directives Information Provided: No Advance Directives on File: No Do you have a plan to hurt others: No Plan Recently lost weight without trying: Yes How much weight loss: 14-23 pounds Patient : No : No Poor oral hygiene: No service: No Current occupational status: retired Meds Allergies Allergy/AdvReac Type Severity Reaction Status Date / Time denosumab (From Prolia) Allergy Intermediate Muscle Pain Verified 04/23/25 10:24 rofecoxib (From Vioxx) Allergy Unknown Verified 04/23/25 10:24 Albcxne-TJX-QrB Reductase Allergy Muscle Verified 04/23/25 10:24 Inhibitor cramps Iodinated Contrast Media AdvReac Intermediate Unknown Verified 04/23/25 10:24 Home Medications ?Medication ?Instructions ?Recorded ?Confirmed ?Last Taken ?Type cetirizine 10 mg tablet (Zyrtec) 10 mg PO DAILY PRN Allergy Symptoms 01/17/24 04/23/25 04/21/25 History hydroxychloroquine 200 mg tablet 100 mg PO DAILY 01/17/24 04/23/25 04/21/25 History losartan 25 mg tablet 25 mg PO DAILY 01/17/24 04/23/25 04/21/25 History nebulizers 03/03/24 03/04/25 Unknown History metformin 500 mg 24 hr 500 mg PO DAILY 08/17/24 04/23/25 04/21/25 History tablet,extended release (gastric retention) levothyroxine 175 mcg tablet 175 mcg PO DAILY@0600 11/23/24 04/23/25 04/21/25 History (Synthroid) tirzepatide 5 mg/0.5 mL 7.5 mg subcut TU 01/07/25 04/23/25 04/20/25 History subcutaneous pen injector (Mounjaro) omeprazole 10 mg capsule,delayed 20 mg PO DAILY@0630 02/25/25 04/23/25 04/21/25 History release belimumab 400 mg intravenous 1,100 mg IV Q4W 04/23/25 04/23/25 04/01/25 History solution (Benlysta) immune glob,gamma (IgG) 10 20 g IV Q2W 04/23/25 04/23/25 04/09/25 History %-gly-IgA over 50 mcg/mL injection solution (Gammagard Liquid) metoprolol succinate 50 mg 25 mg PO DAILY 04/23/25 04/23/25 Unknown History tablet,extended release 24 hr Physical Exam Vital Signs: Vital Signs: Last Vital Signs Temp 98.4 F 04/23/25 10:18 Pulse 79 04/23/25 15:28 Resp 16 04/23/25 15:28 BP 149/62 H 04/23/25 15:28 Pulse Ox 97 04/23/25 15:28 O2 Del Method Room Air 04/23/25 15:28 Oxygen Flow Rate 2 04/23/25 10:18 BMI result Body Mass Index 39.3 Const: General: comfortable and no acute distress Resp: Effort & Inspection: normal respiratory effort Cardio: Rate: regular rate GI: Other: Tender on both lower quadrants, also seems to be tender on the fat along her pannus Palpation (GI): Soft to palpation and not firm Results Labs 04/23/25 15:24 04/24/25 06:13 Labs: Abnormal lab results 04/23/25 Range/Units 11:19 MCV 79.9 L (80.0-98.0) fL MCH 26.2 L (27.0-33.0) pg Immature Gran % (Auto) 0.5 H (0.0-0.4) % Neut % (Auto) 73.1 H (45-73) % Lymph % (Auto) 16.5 L (20-40) % Abs Immat Gran (auto) 0.05 H (0.00-0.03) X10*3/uL Chloride 110 H (96-108) mmol/L BUN 8 L (9-16) mg/dL ALT 45 H (0-31) U/L Short CBC 04/23/25 Range/Units 11:19 WBC 10.2 (4.8-10.8) X10*3/uL Hgb 12.5 (12.0-16.0) g/dl Hct 38.1 (37.0-47.0) % Plt Count 217 (160-400) X10*3/uL BMP 04/23/25 11:19 Sodium 144 Potassium 3.6 Chloride 110 H Carbon Dioxide 24 BUN 8 L Creatinine 0.75 Calcium 9.2 Liver Function 04/23/25 Range/Units 11:19 Total Bilirubin 0.4 (0.0-1.0) mg/dL AST 31 (5-31) U/L ALT 45 H (0-31) U/L Alkaline Phosphatase 86 (39-117) U/L Albumin 4.0 (3.5-5.0) g/dL All other labs normal. CT/CT abdomen pelvis w IV con IMPRESSION: 1. Diverticulosis of the descending and sigmoid colon, without evidence of diverticulitis. 2. Hepatic steatosis. Assessment and Plan (1) Lower abdominal pain: Status: Acute She has had lower abdominal pain for about 4 days now. She describes being multiple watery stools as well. She denies any vomiting although admits to having a little bit of nausea I have reviewed her CAT scan and this shows diverticulosis of the sigmoid without any ongoing inflammatory changes. I am uncertain as to the etiology of her lower abdominal pain. She does seem to be tender as well on her pannus so panniculitis maybe differential. She describes watery stools so enteritis may be a possibility as well Her abdominal exam is otherwise benign. It may be best to admit her under the hospitalist service to be observed especially in view of her multiple medical problems. Stool studies probably should be done. We will follow along while she is in the hospital. She is hemodynamically stable currently. Procedures Date of Service Date of Service: 04/25/25
[2025-04-23 15:33] LABS: MANUAL DIFF FLAG NO
[2025-04-23 15:35] LABS: Hematocrit 38.5 % (37.0-47.0); Hemoglobin 12.6 g/dl (12.0-16.0); Imm Gran Abs Auto 0.05 X10*3/uL (0.00-0.03); Imm Gran Pct Auto 0.5 % (0.0-0.4); Lymphocytes Absolute Auto 2.3 X10*3/uL (1.2-4.9); Mean Corpuscular HGB Conc 32.7 g/dl (31.0-35.0); Mean Corpuscular Hemoglobin 26.2 pg (27.0-33.0); Mean Corpuscular Volume 80.0 fL (80.0-98.0); NRBC Abs Auto 0.000 X10*3/uL (0.0-0.012); NRBC Pct Auto 0.0 /100WBC (0.0-0.2); Platelet Count 237 X10*3/uL (160-400); Red Blood Count 4.81 X10*6/uL (4.20-5.50); White Blood Count 10.3 X10*3/uL (4.8-10.8)
--- NOTE | 2025-04-23 16:35 | PM.IMHP ---
History of Present Illness Date of Service: 04/23/25 <BERTO Tenorio - Last Filed: 04/24/25 16:42> Attending physician on admission: Wolf Rizzo <BERTO Tenorio - Last Filed: 04/24/25 16:42> Chief Complaint: Abdominal pain <BERTO Tenorio - Last Filed: 04/24/25 16:42> This is a 69-year-old female with complicated past medical history who presents to the emergency department with abdominal pain. She reports several week history of decreased appetite, liquid stools and progressively worsening bilateral lower quadrant abdominal pain. Pain is worse after eating. She has had associated nausea and chills but denies vomiting. She has not had fever although she states that she never develops a fever when she is ill. She denies any recent sick contacts or travel. She has had takeout food that she has shared with others who did not get sick. In the emergency department she was afebrile lab work revealed no leukocytosis and the rest of her labs were mostly unremarkable. CT scan of the abdomen and pelvis showed diverticulosis without evidence of diverticulitis. No etiology of her abdominal pain. She was seen by General surgery who felt symptoms could possibly be related to enteritis. She will be admitted for observation. <BERTO Tenorio - Last Filed: 04/24/25 16:42> Review of Systems Review of Systems: Yes all other systems are reviewed and are negative <BERTO Tenorio - Last Filed: 04/24/25 16:42> Constitutional: Constitutional: Reports chills and Denies fever(s) <BERTO Tenorio - Last Filed: 04/24/25 16:42> Gastrointestinal: Gastrointestinal: Reports abdominal pain, Reports loose stools, Reports nausea and Denies vomiting <BERTO Tenorio - Last Filed: 04/24/25 16:42> [facility] Medical History: Medical History Irritable bowel syndrome Multiple sclerosis Raynaud's disease Lower abdominal pain Abnormal finding on EKG MAURO treated with BiPAP Hypogammaglobulinemia Asthma Lupus Pneumonitis Pulmonary fibrosis <BERTO Tenorio - Last Filed: 04/24/25 16:42> Family History: Family History Maternal Aunt Brain abscess Bone cancer Maternal Aunt Lung cancer Melanoma Maternal Uncle Melanoma Bone cancer Lung cancer Mother Thyroid cancer Uterine cancer <BERTO Tenorio - Last Filed: 04/24/25 16:42> Social History: Social History Household Members: Spouse Housing: House Do you presently have visiting nurse or other home services: No Alcohol intake: current Alcohol intake frequency: does not drink Patient Tobacco Use Status: Former Tobacco user Tobacco use type: Cigarette Years Smoked: 20 Years Smoked in Last 30 Days: No e-Cigarette/Vaping Use: Never Used Currently Displaying Signs/Symptoms of Drug Intoxication Withdrawal: No Do you feel safe in your current relationship?: Yes Are you made to feel afraid or neglected: No Advance Directives: No Advance Directives Information Provided: No Advance Directives on File: No Do you have a plan to hurt others: No Plan Recently lost weight without trying: Yes How much weight loss: 14-23 pounds Patient : No : No Poor oral hygiene: No service: No Current occupational status: retired <BERTO Tenorio - Last Filed: 04/24/25 16:42> Meds Allergies/Adverse reactions: Allergies Allergy/AdvReac Type Severity Reaction Status Date / Time denosumab (From Prolia) Allergy Intermediate Muscle Pain Verified 04/23/25 10:24 rofecoxib (From Vioxx) Allergy Unknown Verified 04/23/25 10:24 Juppbmy-WBA-DsY Reductase Allergy Muscle Verified 04/23/25 10:24 Inhibitor cramps Iodinated Contrast Media AdvReac Intermediate Unknown Verified 04/23/25 10:24 <BERTO Tenorio - Last Filed: 04/24/25 16:42> Home medications: Home Medications ?Medication ?Instructions ?Recorded ?Confirmed ?Last Taken ?Type cetirizine 10 mg tablet (Zyrtec) 10 mg PO DAILY PRN Allergy Symptoms 01/17/24 04/23/25 04/21/25 History hydroxychloroquine 200 mg tablet 100 mg PO DAILY 0504/23/25 04/21/25 History losartan 25 mg tablet 25 mg PO DAILY 01/17/24 04/23/25 04/21/25 History nebulizers 03/03/24 03/04/25 Unknown History metformin 500 mg 24 hr 500 mg PO DAILY 08/17/24 04/23/25 04/21/25 History tablet,extended release (gastric retention) levothyroxine 175 mcg tablet 175 mcg PO DAILY@0600 11/23/24 04/23/25 04/21/25 History (Synthroid) tirzepatide 5 mg/0.5 mL 7.5 mg subcut TU 01/07/25 04/23/25 04/20/25 History subcutaneous pen injector (Mounjaro) omeprazole 10 mg capsule,delayed 20 mg PO DAILY@0630 02/25/25 04/23/25 04/21/25 History release belimumab 400 mg intravenous 1,100 mg IV Q4W 04/23/25 04/23/25 04/01/25 History solution (Benlysta) immune glob,gamma (IgG) 10 20 g IV Q2W 04/23/25 04/23/25 04/09/25 History %-gly-IgA over 50 mcg/mL injection solution (Gammagard Liquid) metoprolol succinate 50 mg 25 mg PO DAILY 04/23/25 04/23/25 Unknown History tablet,extended release 24 hr <BERTO Tenorio - Last Filed: 04/24/25 16:42> Physical Exam Vital Signs and Narrative: Vital Signs: Last Vital Signs Temp 98.4 F 04/23/25 10:18 Pulse 79 04/23/25 15:28 Resp 16 04/23/25 15:28 BP 149/62 H 04/23/25 15:28 Pulse Ox 97 04/23/25 15:28 O2 Del Method Room Air 04/23/25 15:28 Oxygen Flow Rate 2 04/23/25 10:18 BMI result Body Mass Index 39.3 <BERTO Tenorio - Last Filed: 04/24/25 16:42> Const: General: cooperative, comfortable, alert and awake <BERTO Tenorio Last Filed: 04/24/25 16:42> Nutritional Appearance: obese <BERTO Tenorio - Last Filed: 04/24/25 16:42> Orientation/consciousness: patient oriented x3 <BERTO Tenorio - Last Filed: 04/24/25 16:42> Chest: Other: port right chest wall <BERTO Tenorio - Last Filed: 04/24/25 16:42> Resp: Other: dry crackles <BERTO Tenorio - Last Filed: 04/24/25 16:42> Effort & Inspection: normal respiratory effort, able to speak in complete sentences, no respiratory distress and no use of accessory muscles <BERTO Tenorio - Last Filed: 04/24/25 16:42> Cardio: Rate: regular rate <BERTO Tenorio - Last Filed: 04/24/25 16:42> GI: Other: no guarding; b/l lower quadrant abdominal pain <BERTO Tenorio - Last Filed: 04/24/25 16:42> Inspection: No distended <BERTO Tenorio - Last Filed: 04/24/25 16:42> Palpation (GI): Soft to palpation <BERTO Tenorio - Last Filed: 04/24/25 16:42> Neuro: General: patient oriented x3, moves all extremities and CN's II-XI intact bilaterally <BERTO Tenorio - Last Filed: 04/24/25 16:42> Results Labs CBC and Chem 7: 04/23/25 15:24 04/24/25 06:13 <BERTO Tenorio - Last Filed: 04/24/25 16:42> Labs: Laboratory Results - last 24 hr 04/23/25 04/23/25 11:19 15:24 MCV 79.9 L 80.0 MCH 26.2 L 26.2 L MCHC 32.8 32.7 RDW 15.6 15.8 Plt Count 217 237 MPV 9.5 9.6 Immature Gran % (Auto) 0.5 H 0.5 H Neut % (Auto) 73.1 H 67.9 Lymph % (Auto) 16.5 L 22.6 [place] % (Auto) 8.5 7.6 Eos % (Auto) 1.0 1.0 Baso % (Auto) 0.4 0.4 Lymph # (Auto) 1.7 2.3 [place] # (Auto) 0.9 0.8 Eos # (Auto) 0.1 0.1 Baso # (Auto) 0.0 0.0 Abs Immat Gran (auto) 0.05 H 0.05 H Absolute Neuts (auto) 7.4 7.0 Absolute Nucleated RBC 0.000 0.000 Nucleated RBC % (auto) 0.0 0.0 Anion Gap 14 Estim Creat Clear Calc 83.6 Estimated GFR > 60 Random Glucose 88 Lactic Acid 0.7 Calcium 9.2 Magnesium 2.0 Total Bilirubin 0.4 AST 31 ALT 45 H Alkaline Phosphatase 86 Total Protein 6.8 Albumin 4.0 Lipase 32 <BERTO Tenorio - Last Filed: 04/24/25 16:42> Imaging Radiologist's Impressions: Impressions Abdomen/Pelvis CT 04/23/25 10:44 IMPRESSION: 1. Diverticulosis of the descending and sigmoid colon, without evidence of diverticulitis. 2. Hepatic steatosis. Electronically signed by: Jimenez Turner MD 04/23/2025 12:12 PM EDT RP <BERTO Tenorio - Last Filed: 04/24/25 16:42> Assessment and Plan (1) Lower abdominal pain: Status: Acute <BERTO Tenorio - Last Filed: 04/24/25 16:42> This is a 69-year-old female with a past medical history significant for chronic respiratory failure due to pulmonary fibrosis on 2 L of supplemental oxygen, asthma, MAURO, lupus on monthly benlysta infusions, hypogammaglobulinemia, MS, IBS, Raynaud's, diabetes and others who presents to the emergency department with abdominal pain Abdominal pain with diarrhea Has history of underlying IBS, possible flare vs enteritis vs possible med induced Check stool studies Symptomatic support with antiemetics and pain medication Clear liquids, advance diet as tolerated If no improvement consider GI consult UA pending to rule out urinary cause of symptoms DM Hold metformin, Mounjaro SSI, POCs Chronic respiratory failure due to pulmonary fibrosis Continue baseline 2 L NC No acute flare Continue baseline inhalers MAURO Continue CPAP Hypertension Continue losartan metoprolol Hypogammaglobulinemia Gets Gammagard infusions 2 x month follows with Dr. Cunningham Lupus gets monthly infusions of Benlysta (monoclonal ab) DVT prophylaxis-mechanical devices <BERTO Tenorio - Last Filed: 04/24/25 16:42> Quality Stroke Does the patient have a stroke diagnosis?: No <Wolf Rizzo MD - Last Filed: 04/24/25 09:49> VTE Prior VTE?: No <Wolf Rizzo MD - Last Filed: 04/24/25 09:49> VTE Risk Level:: Medical - moderate - high <BERTO Tenorio - Last Filed: 04/24/25 16:42> VTE Device Contraindication: N/A - Device Ordered <BERTO Tenorio - Last Filed: 04/24/25 16:42> VTE Drug Contraindication: N/A - Med Ordered <BERTO Tenorio - Last Filed: 04/24/25 16:42>
--- NOTE | 2025-04-23 18:01 | PHA.MEDREC ---
Addendum entered by Marleny Huynh [facility] 04/23/25 18:43: REVIEWED Original Note: Pharmacy Consult ? Medication Reconciliation Pharmacy has completed the medication reconciliation. Patient was able to confirm all her medications. Patient states she is not taking Amoxicillin 500 mg, and Fluticasone prop nasal spray. Patient confirmed Hydroxychlorquine 100 mg daily, even through claims has 200 mg BID. Gammagard 20 g Q2W, last dose 04/09/25, next dose was to be today however patient came to the ER, Metoprolol Succinate 25 mg daily, even though claims has 50 mg daily, Mounjaro 7.5 mg every Saturday, last dose 04/20/25, Benlysta is every month, last dose 04/01/25 and next dose is 04/29/25. Patient states she can only take Brand name Synthroid 175 mcg. Patient is aware we do not carry brand name in our pharmacy and will have someone bring it in for her. Patient states she hasn't had any of her medications in 2 days due to her not feeling well.
[2025-04-23 19:12] VITALS: BP 138/62; PULSE 70; RESP 16; TEMP 36.8; O2SAT 99
[2025-04-23 22:00] VITALS: BP 176/70; PULSE 100; RESP 15; TEMP 36.8; O2SAT 99
--- NOTE | 2025-04-23 22:30 | PC.NURSE ---
Pt requesting home dose of metoprolol 25mg PO that she missed today. BP 176/70, HR 71. MD aware, awaiting response and med orders
[2025-04-23 23:16] VITALS: PULSE 80; RESP 29; O2SAT 97
[2025-04-24] VITALS (7 sets, daily range): BP systolic 136–150; BP diastolic 60–69; PULSE 70–82; RESP 14–18; TEMP 36–36.8; O2SAT 97–100; BMI 38.7
[2025-04-24 06:37] LABS: Anion Gap 12 (12-20); Blood Urea Nitrogen 5 mg/dL (9-16); Calcium 8.9 mg/dL (8.4-10.2); Carbon Dioxide 25 mmol/L (22-29); Chloride 109 mmol/L (96-108); Creatinine Clr Calc Pharmacy 93.6; Estimated Glomerular Filt Rate > 60; Potassium 3.7 mmol/L (3.3-5.1); Sodium 142 mmol/L (135-145)
--- NOTE | 2025-04-24 08:03 | PC.NURSE ---
pt a&ox3- comes from home with 4 days of loose stool and lower abd pain with decreased po intake. Lower abd soft/tender upon palp, this mornings poc 108- no insulin given. rr equal/non labored- lungs diminished 2 NC at baseline for pulm.fibrosis. pt has hx of hypogammaglobulemia followed by dr. huddleston for gamagard infusions twice monthly, Dr. Del Rio following for this admit- ? panniculitis vs entritis. Pt needs stool sample still- has been unable to produce thus far. call rondon within reach, plan of care ongoing.
[2025-04-24] MEDS: Metoprolol Succinate ER 25 MG TAB.ER.24H PO (09:25)
[2025-04-24] MEDS: 0.9 % Sodium Chloride Flush 3 ML SYRINGE IVFLUSH ×3 (09:26→21:17)
--- NOTE | 2025-04-24 09:49 | P.PNIM_ITS ---
Subjective Subjective Date of Service: 04/24/25 Interval History: bilateral lower quadrant pain diarrhea improving nausea improving Review of Systems Review of Systems: Yes all other systems are reviewed and are negative Physical Exam 2 Vital Signs: Vital Signs: Last Vital Signs Temp 98.2 F 04/24/25 08:35 Pulse 76 04/24/25 08:35 Resp 16 04/24/25 08:35 BP 146/69 H 04/24/25 08:35 Pulse Ox 99 04/24/25 08:35 O2 Del Method Nasal Cannula 04/24/25 08:35 O2 Flow Rate 1 04/24/25 08:35 Oxygen Flow Rate 2 04/23/25 10:18 BMI result Body Mass Index 38.7 Gen: in no acute distress HEENT: sclera anicteric, moist mucus membranes Neck: supple Lungs: clear to auscultation bilaterally Heart: regular rate and rhythm, no murmurs Abd: soft, mild bilateral lower quadrant tenderness without rebound or guarding, non-distended Ext: no edema Skin: warm/well-perfused Neuro: alert and oriented x3, no focal findings Psych: appropriate affect Objective Data Active Medications Acetaminophen (Acetaminophen 325 Mg Tablet) 650 mg PO Q6H PRN PRN Reason: Pain, Mild 1-3,fever,headache Albuterol Sulfate (Albuterol Sulfate 90 Mcg 8 Gm Inhaler) 1 puff INHALE RQ6H PRN PRN Reason: Wheezing Calcium Carbonate (Calcium Carbonate 750 Mg Tab.Chew) 750 mg PO Q4H PRN PRN Reason: Heartburn Dextrose (Dextrose 50 % 25 Gm/50 Ml Syringe) 25 gm IVPUSH Q15M PRN; Protocol PRN Reason: per Hypoglycemia Standing Ord. Fluticasone/Vilanterol (Fluticasone/Vilanterol 200/25 Blst.W.Dev) 1 puff INHALE RDAILY [facility] Last Admin: 04/24/25 09:12 Dose: Not Given Documented By: JAYNA Non-Admin Reason: Not In Room Furosemide (Furosemide 20 Mg Tablet) 20 mg PO DAILY PRN; Protocol PRN Reason: weight gain Glucose (Glucose Gel 15 Gm Gel..Gram.) 15 gm PO Q15M PRN; Protocol PRN Reason: per Hypoglycemia Standing Ord. Hydroxychloroquine Sulfate (Hydroxychloroquine Sulfate 200 Mg Tablet) 100 mg PO DAILY [facility] Last Admin: 04/24/25 09:25 Dose: 100 mg Documented By: SALVATORE Insulin Human Lispro (Insulin Lispro 100 Unit/Ml 3 Ml Vial) 0 unit SUBCUT QIDACHS [facility]; Protocol Last Admin: 04/24/25 07:59 Dose: Not Given Documented By: FELTON Non-Admin Reason: No Insulin Coverage Losartan Potassium (Losartan Potassium 25 Mg Tablet) 25 mg PO DAILY [facility]; Protocol Last Admin: 04/24/25 09:25 Dose: 25 mg Documented By: SALVATORE Magnesium Hydroxide (Milk Of Magnesia 30 Ml Oral.Susp) 30 ml PO DAILY PRN PRN Reason: Constipation Melatonin (Melatonin 3 Mg Tablet) 6 mg PO BEDTIME PRN PRN Reason: Insomnia Metoprolol Succinate (Metoprolol Succinate Er 25 Mg Tab.Er.24h) 25 mg PO DAILY [facility]; Protocol Last Admin: 04/24/25 09:25 Dose: 25 mg Documented By: SALVATORE Morphine Sulfate (Morphine Sulfate 4 Mg/Ml Cartridge) 2 mg IVPUSH Q4H PRN; Protocol PRN Reason: Pain, Severe (Pain Scale 7-10) Last Admin: 04/24/25 02:14 Dose: 2 mg Documented By: SHANNON Patient Own Medication ( Synthroid 175 Mcg) 1 each PO DAILY@0600 [facility] Omeprazole (Omeprazole 20 Mg Capsule.Dr) 20 mg PO DAILY@0630 [facility] Ondansetron HCl (Ondansetron Hcl 4 Mg/2 Ml Vial) 4 mg IVPUSH Q8H PRN PRN Reason: Nausea and Vomiting Last Admin: 04/23/25 20:54 Dose: 4 mg Documented By: CHARLIE Roflumilast (Roflumilast 500 Mcg Tablet) 500 mcg PO DAILY [facility] Last Admin: 04/24/25 09:25 Dose: 500 mcg Documented By: SALVATORE Sodium Chloride (0.9 % Sodium Chloride Flush 3 Ml Syringe) [facility] Last Admin: 04/24/25 09:26 Dose: 3 ml Documented By: SALVATORE Labs 04/23/25 15:24 04/23/25 11:19 Labs: Laboratory Results - last 24 hr 04/23/25 04/23/25 04/24/25 11:19 15:24 06:13 MCV 79.9 L 80.0 MCH 26.2 L 26.2 L MCHC 32.8 32.7 RDW 15.6 15.8 Plt Count 217 237 MPV 9.5 9.6 Immature Gran % (Auto) 0.5 H 0.5 H Neut % (Auto) 73.1 H 67.9 Lymph % (Auto) 16.5 L 22.6 [place] % (Auto) 8.5 7.6 Eos % (Auto) 1.0 1.0 Baso % (Auto) 0.4 0.4 Lymph # (Auto) 1.7 2.3 [place] # (Auto) 0.9 0.8 Eos # (Auto) 0.1 0.1 Baso # (Auto) 0.0 0.0 Abs Immat Gran (auto) 0.05 H 0.05 H Absolute Neuts (auto) 7.4 7.0 Absolute Nucleated RBC 0.000 0.000 Nucleated RBC % (auto) 0.0 0.0 Hold Purple Top SEE NOTE Anion Gap 14 Estim Creat Clear Calc 83.6 Estimated GFR > 60 Random Glucose 88 Lactic Acid 0.7 Calcium 9.2 Magnesium 2.0 Total Bilirubin 0.4 AST 31 ALT 45 H Alkaline Phosphatase 86 Total Protein 6.8 Albumin 4.0 Lipase 32 Assessment and Plan (1) Gastroenteritis: Status: Acute Plan d2, 69yo F with 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, asthma, MAURO on CPAP, SLE on Benlysta, hypogammoglobulinemia on Gammagard, MS, IBS, Raynauds, DM2 presenting with 4d of abd pain and diarrhea abd pain/diarrhea - underlying IBS vs enteritis vs possible med effect - stool studies ordered including GI panel, Cdiff [no recent ABX exposure], fecal fat [reports grease in stools], stool WBCs - trial of advancing diet - Gen Surg consulted, likely enteritis; only diverticulosis on CT DM2 - yoan-dose lispro; hold MTF + Mounjaro chronic hypoxic RF due to pulm fibrosis - 2L O2 MAURO - CPAP at night HTN - losartan, metoprolol succinate hypogammaglobulinemia - Gammagard 2x/mo SLE - Benlysta monthly, daily Plaquenil asthma not in acute exac - Breo, prn albuterol hypothyroidism - continue LT4 VTE ppx - SCDs dispo - eventual home In clinical judgment, the patient requires continued inpatient hospitalization for the following reasons: abd pain Total time managing care of this patient today: 35 minutes. Quality Stroke Does the patient have a stroke diagnosis?: No VTE Prior VTE?: No VTE Risk Level:: Medical - moderate - high VTE Device Contraindication: N/A - Device Ordered VTE Drug Contraindication: N/A - Med Ordered
--- NOTE | 2025-04-24 10:15 | PM.PNGS ---
Subjective Subjective Date of Service: 04/24/25 Interval history: Abdominal pain better this morning No vomiting Passing flatus Complains of constipation She says she does have IBS Physical Exam Vital Signs: Vital Signs: Last Vital Signs Temp 98.2 F 04/24/25 08:35 Pulse 76 04/24/25 08:35 Resp 16 04/24/25 08:35 BP 146/69 H 04/24/25 08:35 Pulse Ox 99 04/24/25 08:35 O2 Del Method Nasal Cannula 04/24/25 08:35 O2 Flow Rate 1 04/24/25 08:35 Oxygen Flow Rate 2 04/23/25 10:18 BMI result Body Mass Index 38.7 Const: General: comfortable and no acute distress Resp: Effort & Inspection: normal respiratory effort Cardio: Rate: regular rate GI: Other: Mild tenderness on lower abdomen Palpation (GI): Soft to palpation, not firm and no guarding Objective Data Active Medications Acetaminophen (Acetaminophen 325 Mg Tablet) 650 mg PO Q6H PRN PRN Reason: Pain, Mild 1-3,fever,headache Albuterol Sulfate (Albuterol Sulfate 90 Mcg 8 Gm Inhaler) 1 puff INHALE RQ6H PRN PRN Reason: Wheezing Calcium Carbonate (Calcium Carbonate 750 Mg Tab.Chew) 750 mg PO Q4H PRN PRN Reason: Heartburn Dextrose (Dextrose 50 % 25 Gm/50 Ml Syringe) 25 gm IVPUSH Q15M PRN; Protocol PRN Reason: per Hypoglycemia Standing Ord. Fluticasone/Vilanterol (Fluticasone/Vilanterol 200/25 Blst.W.Dev) 1 puff INHALE RDAILY [facility] Last Admin: 04/24/25 09:12 Dose: Not Given Documented By: JAYNA Non-Admin Reason: Not In Room Furosemide (Furosemide 20 Mg Tablet) 20 mg PO DAILY PRN; Protocol PRN Reason: weight gain Glucose (Glucose Gel 15 Gm Gel..Gram.) 15 gm PO Q15M PRN; Protocol PRN Reason: per Hypoglycemia Standing Ord. Hydroxychloroquine Sulfate (Hydroxychloroquine Sulfate 200 Mg Tablet) 100 mg PO DAILY [facility] Last Admin: 04/24/25 09:25 Dose: 100 mg Documented By: SALVATORE Insulin Human Lispro (Insulin Lispro 100 Unit/Ml 3 Ml Vial) [facility]; Protocol Last Admin: 04/24/25 07:59 Dose: Not Given Documented By: FELTON Non-Admin Reason: No Insulin Coverage Losartan Potassium (Losartan Potassium 25 Mg Tablet) 25 mg PO DAILY [facility]; Protocol Last Admin: 04/24/25 09:25 Dose: 25 mg Documented By: SALVATORE Magnesium Hydroxide (Milk Of Magnesia 30 Ml Oral.Susp) 30 ml PO DAILY PRN PRN Reason: Constipation Melatonin (Melatonin 3 Mg Tablet) 6 mg PO BEDTIME PRN PRN Reason: Insomnia Metoprolol Succinate (Metoprolol Succinate Er 25 Mg Tab.Er.24h) 25 mg PO DAILY [facility]; Protocol Last Admin: 04/24/25 09:25 Dose: 25 mg Documented By: SALVATORE Morphine Sulfate (Morphine Sulfate 4 Mg/Ml Cartridge) 2 mg IVPUSH Q4H PRN; Protocol PRN Reason: Pain, Severe (Pain Scale 7-10) Last Admin: 04/24/25 02:14 Dose: 2 mg Documented By: SHANNON Patient Own Medication ( Synthroid 175 Mcg) 1 each PO DAILY@0600 [facility] Omeprazole (Omeprazole 20 Mg Capsule.Dr) 20 mg PO DAILY@0630 [facility] Ondansetron HCl (Ondansetron Hcl 4 Mg/2 Ml Vial) 4 mg IVPUSH Q8H PRN PRN Reason: Nausea and Vomiting Last Admin: 04/23/25 20:54 Dose: 4 mg Documented By: KALLIE-LAURA Roflumilast (Roflumilast 500 Mcg Tablet) 500 mcg PO DAILY [facility] Last Admin: 04/24/25 09:25 Dose: 500 mcg Documented By: SALVATORE Sodium Chloride (0.9 % Sodium Chloride Flush 3 Ml Syringe) 3 ml IVFLUSH QSHIFT [facility] Last Admin: 04/24/25 09:26 Dose: 3 ml Documented By: SALVATORE Labs 04/23/25 15:24 04/23/25 11:19 Labs: Laboratory Results - last 24 hr 04/23/25 04/23/25 04/24/25 11:19 15:24 06:13 MCV 79.9 L 80.0 MCH 26.2 L 26.2 L MCHC 32.8 32.7 RDW 15.6 15.8 Plt Count 217 237 MPV 9.5 9.6 Immature Gran % (Auto) 0.5 H 0.5 H Neut % (Auto) 73.1 H 67.9 Lymph % (Auto) 16.5 L 22.6 [place] % (Auto) 8.5 7.6 Eos % (Auto) 1.0 1.0 Baso % (Auto) 0.4 0.4 Lymph # (Auto) 1.7 2.3 [place] # (Auto) 0.9 0.8 Eos # (Auto) 0.1 0.1 Baso # (Auto) 0.0 0.0 Abs Immat Gran (auto) 0.05 H 0.05 H Absolute Neuts (auto) 7.4 7.0 Absolute Nucleated RBC 0.000 0.000 Nucleated RBC % (auto) 0.0 0.0 Hold Purple Top SEE NOTE Anion Gap 14 Estim Creat Clear Calc 83.6 Estimated GFR > 60 Random Glucose 88 Lactic Acid 0.7 Calcium 9.2 Magnesium 2.0 Total Bilirubin 0.4 AST 31 ALT 45 H Alkaline Phosphatase 86 Total Protein 6.8 Albumin 4.0 Lipase 32 Procedures Date of Service Date of Service: 04/24/25 Progress Note: A&P Assessment and plan (1) Abdominal pain: Status: Acute Assessment and Plan: CAT scan does not suggest an acute inflammatory process May have gastroenteritis Clear liquids, slowly advance as tolerated Abdomen remained soft and benign She does have IBS We will continue to follow Encouraged to get out of bed Time Spent With Patient Time: Total time managing care of this patient today ____ minutes. Quality Stroke Does the patient have a stroke diagnosis?: No VTE Prior VTE?: No VTE Risk Level:: Medical - moderate - high VTE Device Contraindication: N/A - Device Ordered VTE Drug Contraindication: N/A - Med Ordered
--- NOTE | 2025-04-24 10:22 | MHC.CM.PN ---
pt lives with pt is independent had no previous services dc plan home n/s
[2025-04-24] MEDS: Butalb/Acetamin/Caff 50/325/40 TABLET 1 TAB PO (11:17)
--- NOTE | 2025-04-24 12:28 | PC.NURSE ---
Addendum entered by Roxann Clark RN 04/24/25 12:44: Correction POC was 112 at 10:57. Original Note: Pt POC for noon was 113 no coverage needed, POC glucose not uploading into flow sheets.
--- NOTE | 2025-04-24 14:53 | PC.NURSE ---
POC Glucose not uploading into [employer], Chemistry called, per Chemistry they are unable to resolve this problem, try different glucometer. IT called, ongoing issue, pending resolution.
--- NOTE | 2025-04-24 15:14 | PC.NURSE ---
15:08 pt feeling nauseous, POC checked for 125. Zofran given per MAR pending effectiveness.
[2025-04-24 17:35] LABS: OBS Int Ctl Valid YES; OBS1 NEGATIVE (NEGATIVE)
[2025-04-24 20:11] LABS: CDiff Gene PCR NEGATIVE (Negative)
--- NOTE | 2025-04-24 20:26 | PC.NURSE ---
poc still not uploading to [employer] - poc 116 per poc machine on unit. no cover needed
[2025-04-24 20:52] LABS: Leukocytes Stool Qualitative NEGATIVE (NEGATIVE)
[2025-04-25 04:00] VITALS: BP 141/70; PULSE 79; RESP 18; TEMP 36.8; O2SAT 95
--- NOTE | 2025-04-25 07:44 | PC.NURSE ---
POC blood glucose 120 at 0744, POC still unable to upload in [employer].
[2025-04-25 07:45] VITALS: BP 123/63; PULSE 82; RESP 16; TEMP 36.4; O2SAT 99
[2025-04-25] MEDS: Fluticasone/Vilanterol 200/25 BLST.W.DEV 1 PUFF INHALE (07:47)
[2025-04-25 07:50] VITALS: PULSE 82; RESP 16; O2SAT 97
[2025-04-25 09:28] LABS: E. coli EAEC Not Detected (Not Detect.); E. coli EPEC Not Detected (Not Detect.); E. coli ETEC Not Detected (Not Detect.); E. coli STEC Not Detected (Not Detect.); Shigella sp./EIEC Not Detected (Not Detect.)
--- NOTE | 2025-04-25 09:42 | P.PNIM_ITS ---
Subjective Subjective Date of Service: 04/25/25 Interval History: c/o bilateral lower quadrant pain and nausea worse with eating Review of Systems Review of Systems: Yes all other systems are reviewed and are negative Physical Exam 2 Vital Signs: Vital Signs: Last Vital Signs Temp 97.6 F 04/25/25 07:45 Pulse 82 04/25/25 07:50 Resp 16 04/25/25 07:50 BP 123/63 04/25/25 07:45 Pulse Ox 99 04/25/25 07:45 O2 Del Method Nasal Cannula 04/25/25 07:45 O2 Flow Rate 1 04/25/25 07:45 Oxygen Flow Rate 2 04/23/25 10:18 BMI result Body Mass Index 38.7 Gen: in no acute distress HEENT: sclera anicteric, moist mucus membranes Neck: supple Lungs: clear to auscultation bilaterally Heart: regular rate and rhythm, no murmurs Abd: soft, mild bilateral lower quadrant tenderness without rebound or guarding, non-distended Ext: no edema Skin: warm/well-perfused Neuro: alert and oriented x3, no focal findings Psych: appropriate affect Objective Data Active Medications Acetaminophen (Acetaminophen 325 Mg Tablet) 650 mg PO Q6H PRN PRN Reason: Pain, Mild 1-3,fever,headache Acetaminophen/Butalbital/Caffeine (Butalb/Acetamin/Caff 50/325/40 Tablet) 1 tab PO Q4H PRN PRN Reason: Headache Last Admin: 04/24/25 11:17 Dose: 1 tab Documented By: SALVATORE Albuterol Sulfate (Albuterol Sulfate 90 Mcg 8 Gm Inhaler) 1 puff INHALE RQ6H PRN PRN Reason: Wheezing Calcium Carbonate (Calcium Carbonate 750 Mg Tab.Chew) 750 mg PO Q4H PRN PRN Reason: Heartburn Dextrose (Dextrose 50 % 25 Gm/50 Ml Syringe) 25 gm IVPUSH Q15M PRN; Protocol PRN Reason: per Hypoglycemia Standing Ord. Fluticasone/Vilanterol (Fluticasone/Vilanterol 200/25 Blst.W.Dev) 1 puff INHALE RDAILY [facility] Last Admin: 04/25/25 07:47 Dose: 1 puff Documented By: JAYNA Furosemide (Furosemide 20 Mg Tablet) 20 mg PO DAILY PRN; Protocol PRN Reason: weight gain Glucose (Glucose Gel 15 Gm Gel..Gram.) 15 gm PO Q15M PRN; Protocol PRN Reason: per Hypoglycemia Standing Ord. Hydroxychloroquine Sulfate (Hydroxychloroquine Sulfate 200 Mg Tablet) 100 mg PO DAILY@1800 [facility] Lactated Ringer's (Lr) 1,000 mls @ 125 mls/hr IVCONT .Q8H [facility] Insulin Human Lispro (Insulin Lispro 100 Unit/Ml 3 Ml Vial) 0 unit SUBCUT QIDACHS [facility]; Protocol Last Admin: 04/25/25 09:00 Dose: Not Given Documented By: SALVATORE Non-Admin Reason: No Insulin Coverage Losartan Potassium (Losartan Potassium 25 Mg Tablet) 25 mg PO DAILY [facility]; Protocol Last Admin: 04/25/25 09:02 Dose: Not Given Documented By: SALVATORE Non-Admin Reason: Patient Refused Magnesium Hydroxide (Milk Of Magnesia 30 Ml Oral.Susp) 30 ml PO DAILY PRN PRN Reason: Constipation Melatonin (Melatonin 3 Mg Tablet) 6 mg PO BEDTIME PRN PRN Reason: Insomnia Metoprolol Succinate (Metoprolol Succinate Er 25 Mg Tab.Er.24h) 25 mg PO DAILY@1800 [facility]; Protocol Morphine Sulfate (Morphine Sulfate 4 Mg/Ml Cartridge) 2 mg IVPUSH Q4H PRN; Protocol PRN Reason: Pain, Severe (Pain Scale 7-10) Last Admin: 04/25/25 08:52 Dose: 2 mg Documented By: SALVATORE Patient Own Medication ( Synthroid 175 Mcg) 1 each PO DAILY@0600 [facility] Omeprazole (Omeprazole 40 Mg Capsule.) 40 mg PO DAILY@0630 [facility] Last Admin: 04/25/25 06:00 Dose: 40 mg Documented By: DUC Ondansetron HCl (Ondansetron Hcl 4 Mg/2 Ml Vial) 4 mg IVPUSH Q8H PRN PRN Reason: Nausea and Vomiting Last Admin: 04/25/25 08:52 Dose: 4 mg Documented By: SALVATORE Sodium Chloride (0.9 % Sodium Chloride Flush 3 Ml Syringe) 3 ml IVFLUSH QSHIFT [facility] Last Admin: 04/25/25 09:25 Dose: Not Given Documented By: SALVATORE Non-Admin Reason: Previously Administered Vitamin D (Cholecalciferol (Vitamin D3) 25 Mcg Tablet) 25 mcg PO DAILY [facility] Last Admin: 04/25/25 09:02 Dose: Not Given Documented By: SALVATORE Non-Admin Reason: Patient Refused Labs 04/23/25 15:24 04/24/25 06:13 Labs: Laboratory Results - last 24 hr 04/24/25 04/24/25 06:13 17:23 Anion Gap 12 Estim Creat Clear Calc 93.6 Estimated GFR > 60 Random Glucose 98 Calcium 8.9 Stool Occult Blood NEGATIVE Stool Leukocytes, Qual NEGATIVE C. difficile Tox B Gene NEGATIVE Microbiology Microbiology Results: Microbiology 04/23/25 11:36 Blood Culture - Preliminary Blood - Venous No growth after 24 hours. 04/23/25 11:19 Blood Culture - Preliminary Blood - Venous No growth after 24 hours. 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, asthma, MAURO on CPAP, SLE on Benlysta, hypogammoglobulinemia on Gammagard, MS, IBS, Raynauds, DM2 presenting with 4d of abd pain and diarrhea abd pain/diarrhea - underlying IBS vs enteritis vs possible med effect - GI panel pending, fecal fat pending - Cdiff negative, stool WBCs negative - d/c Daliresp started 3mo ago and can be associated with N/V/diarrhea - NPO and IV fluids for now - Gen Surg consulted, following DM2 - yoan-dose lispro; hold MTF + Mounjaro chronic hypoxic RF due to pulm fibrosis - 2L O2 MAURO - CPAP at night HTN - losartan, metoprolol succinate hypogammaglobulinemia - Gammagard 2x/mo SLE - Benlysta monthly, daily Plaquenil asthma not in acute exac - Breo, prn albuterol hypothyroidism - continue LT4 VTE ppx - SCDs dispo - eventual home In my clinical judgment, the patient requires continued inpatient hospitalization for the following reasons: abd pain Total time managing care of this patient today: 35 minutes. Quality Stroke Does the patient have a stroke diagnosis?: No VTE Prior VTE?: No VTE Risk Level:: Medical - moderate - high VTE Device Contraindication: N/A - Device Ordered VTE Drug Contraindication: N/A - Med Ordered
--- NOTE | 2025-04-25 09:49 | PM.PNGS ---
Subjective Subjective Date of Service: 04/25/25 Interval history: Has had abdominal pain, vomiting and diarrhea after having regular food yesterday Says she passes flatus Describes pain as being in the lower abdomen which started after she had meals yesterday No fever Very anxious Physical Exam Vital Signs: Vital Signs: Last Vital Signs Temp 97.6 F 04/25/25 07:45 Pulse 82 04/25/25 07:50 Resp 16 04/25/25 07:50 BP 123/63 04/25/25 07:45 Pulse Ox 99 04/25/25 07:45 O2 Del Method Nasal Cannula 04/25/25 07:45 O2 Flow Rate 1 04/25/25 07:45 Oxygen Flow Rate 2 04/23/25 10:18 BMI result Body Mass Index 38.7 Const: Other: Very anxious Resp: Effort & Inspection: normal respiratory effort Cardio: Rate: regular rate GI: Palpation (GI): Soft to palpation, not firm, Tenderness to palpation present (GI) (Tender on both lower quadrants) and no guarding Objective Data Active Medications Acetaminophen (Acetaminophen 325 Mg Tablet) 650 mg PO Q6H PRN PRN Reason: Pain, Mild 1-3,fever,headache Acetaminophen/Butalbital/Caffeine (Butalb/Acetamin/Caff 50/325/40 Tablet) 1 tab PO Q4H PRN PRN Reason: Headache Last Admin: 04/24/25 11:17 Dose: 1 tab Documented By: SALVATORE Albuterol Sulfate (Albuterol Sulfate 90 Mcg 8 Gm Inhaler) 1 puff INHALE RQ6H PRN PRN Reason: Wheezing Calcium Carbonate (Calcium Carbonate 750 Mg Tab.Chew) 750 mg PO Q4H PRN PRN Reason: Heartburn Dextrose (Dextrose 50 % 25 Gm/50 Ml Syringe) 25 gm IVPUSH Q15M PRN; Protocol PRN Reason: per Hypoglycemia Standing Ord. Fluticasone/Vilanterol (Fluticasone/Vilanterol 200/25 Blst.W.Dev) 1 puff INHALE RDAILY [facility] Last Admin: 04/25/25 07:47 Dose: 1 puff Documented By: JAYNA Furosemide (Furosemide 20 Mg Tablet) 20 mg PO DAILY PRN; Protocol PRN Reason: weight gain Glucose (Glucose Gel 15 Gm Gel..Gram.) 15 gm PO Q15M PRN; Protocol PRN Reason: per Hypoglycemia Standing Ord. Hydroxychloroquine Sulfate (Hydroxychloroquine Sulfate 200 Mg Tablet) 100 mg PO DAILY@1800 [facility] Lactated Ringer's (Lr) 1,000 mls @ 125 mls/hr IVCONT .Q8H [facility] Insulin Human Lispro (Insulin Lispro 100 Unit/Ml 3 Ml Vial) 0 unit SUBCUT QIDACHS [facility]; Protocol Last Admin: 04/25/25 09:00 Dose: Not Given Documented By: SALVATORE Non-Admin Reason: No Insulin Coverage Losartan Potassium (Losartan Potassium 25 Mg Tablet) 25 mg PO DAILY [facility]; Protocol Last Admin: 04/25/25 09:02 Dose: Not Given Documented By: SALVATORE Non-Admin Reason: Patient Refused Magnesium Hydroxide (Milk Of Magnesia 30 Ml Oral.Susp) 30 ml PO DAILY PRN PRN Reason: Constipation Melatonin (Melatonin 3 Mg Tablet) 6 mg PO BEDTIME PRN PRN Reason: Insomnia Metoprolol Succinate (Metoprolol Succinate Er 25 Mg Tab.Er.24h) 25 mg PO DAILY@1800 [facility]; Protocol Morphine Sulfate (Morphine Sulfate 4 Mg/Ml Cartridge) 2 mg IVPUSH Q4H PRN; Protocol PRN Reason: Pain, Severe (Pain Scale 7-10) Last Admin: 04/25/25 08:52 Dose: 2 mg Documented By: SALVATORE Patient Own Medication ( Synthroid 175 Mcg) 1 each PO DAILY@0600 [facility] Omeprazole (Omeprazole 40 Mg Capsule.Dr) 40 mg PO DAILY@0630 [facility] Last Admin: 04/25/25 06:00 Dose: 40 mg Documented By: DUC Ondansetron HCl (Ondansetron Hcl 4 Mg/2 Ml Vial) 4 mg IVPUSH Q8H PRN PRN Reason: Nausea and Vomiting Last Admin: 04/25/25 08:52 Dose: 4 mg Documented By: SALVATORE Sodium Chloride (0.9 % Sodium Chloride Flush 3 Ml Syringe) 3 ml IVFLUSH QSHIFT [facility] Last Admin: 04/25/25 09:25 Dose: Not Given Documented By: SALVATORE Non-Admin Reason: Previously Administered Vitamin D (Cholecalciferol (Vitamin D3) 25 Mcg Tablet) 25 mcg PO DAILY [facility] Last Admin: 04/25/25 09:02 Dose: Not Given Documented By: SALVATORE Non-Admin Reason: Patient Refused Labs 04/23/25 15:24 04/24/25 06:13 Labs: Laboratory Results - last 24 hr 04/24/25 04/24/25 06:13 17:23 Anion Gap 12 Estim Creat Clear Calc 93.6 Estimated GFR > 60 Random Glucose 98 Calcium 8.9 Stool Occult Blood NEGATIVE Stool Leukocytes, Qual NEGATIVE C. difficile Tox B Gene NEGATIVE Microbiology Microbiology Results: Microbiology 04/23/25 11:36 Blood Culture - Preliminary Blood - Venous No growth after 24 hours. 04/23/25 11:19 Blood Culture - Preliminary Blood - Venous No growth after 24 hours. Procedures Date of Service Date of Service: 04/25/25 Progress Note: A&P Assessment and plan (1) Lower abdominal pain: Status: Acute Assessment and Plan: Has had recurrence of abdominal pain, vomiting as well as diarrhea after eating 2 meals yesterday No fever Stable vital signs Abdomen otherwise soft and benign CT scan did not reveal obvious etiology; possible enteritis, pain from diverticular disease without diverticulitis, or secondary to biologics for pulmonary fibrosis We will keep NPO, with ice chips Restart IV fluids Encouraged to ambulate Discussed with the hospitalist Time Spent With Patient Time: Total time managing care of this patient today ____ minutes. Quality Stroke Does the patient have a stroke diagnosis?: No VTE Prior VTE?: No VTE Risk Level:: Medical - moderate - high VTE Device Contraindication: N/A - Device Ordered VTE Drug Contraindication: N/A - Med Ordered
[2025-04-25] MEDS: Lactated Ringers 1,000 ML 125 ML IVCONT ×2 (10:16→17:00)
--- NOTE | 2025-04-25 11:05 | PC.NURSE ---
11:04 POC blood glucose 102, no coverage needed. Glucometer will not upload into [employer], ongoing issue.
[2025-04-25 15:45] VITALS: BP 140/70; PULSE 79; RESP 14; TEMP 36.4; O2SAT 99
--- NOTE | 2025-04-25 16:10 | PC.NURSE ---
Addendum entered by Roxann Clark RN 04/25/25 16:19: MD Rizzo made aware of most recent blood sugar, no new orders at this time. Original Note: 16:09 POC blood glucose 90, results continue to not upload into [employer], issue ongoing IT aware.
--- NOTE | 2025-04-25 16:30 | PC.NURSE ---
MD Rizzo aware pt refusing most PO medications, including AM med pass due to on going nausea, no vomiting witnessed/reported, PRN Zofran given with good effect per pt.
[2025-04-25] MEDS: Metoprolol Succinate ER 25 MG TAB.ER.24H PO (17:00)
[2025-04-25 19:44] VITALS: BP 151/65; PULSE 79; RESP 18; TEMP 36.6; O2SAT 97
--- NOTE | 2025-04-25 21:07 | PC.NURSE ---
1930 POC 89, no insulin coverage.
[2025-04-26] VITALS (7 sets, daily range): BP systolic 128–182; BP diastolic 60–86; PULSE 69–84; RESP 14–18; TEMP 36.2–36.7; O2SAT 94–99
[2025-04-26] MEDS: Lactated Ringers 1,000 ML 125 ML IVCONT ×3 (01:01→16:33)
--- NOTE | 2025-04-26 07:35 | PC.NURSE ---
0722 POC is 99, no insulin coverage needed.
--- NOTE | 2025-04-26 07:58 | P.PNGS_ITS ---
Subjective Subjective Date of Service: 04/26/25 Interval history: Feels much better No diarrhea No nausea or vomiting She says her pain is practically resolved She also says that her strength has improved and she is unable to stand up easily from a sitting position Physical Exam 2 Vital Signs: Vital Signs: Last Vital Signs Temp 98.1 F 04/26/25 07:19 Pulse 80 04/26/25 07:19 Resp 14 04/26/25 07:19 BP 174/72 H 04/26/25 07:42 Pulse Ox 98 04/26/25 07:19 O2 Del Method Room Air 04/26/25 07:19 O2 Flow Rate 1 04/25/25 07:45 Oxygen Flow Rate 2 04/23/25 10:18 BMI result Body Mass Index 38.7 Const: General: comfortable and no acute distress Resp: Effort & Inspection: normal respiratory effort Cardio: Rate: regular rate GI: Palpation (GI): Soft to palpation, not firm, nontender and no guarding Objective Data Active Medications Acetaminophen (Acetaminophen 325 Mg Tablet) 650 mg PO Q6H PRN PRN Reason: Pain, Mild 1-3,fever,headache Last Admin: 04/26/25 07:40 Dose: 650 mg Documented By: KIA Acetaminophen/Butalbital/Caffeine (Butalb/Acetamin/Caff 50/325/40 Tablet) 1 tab PO Q4H PRN PRN Reason: Headache Last Admin: 04/24/25 11:17 Dose: 1 tab Documented By: SALVATORE Albuterol Sulfate (Albuterol Sulfate 90 Mcg 8 Gm Inhaler) 1 puff INHALE RQ6H PRN PRN Reason: Wheezing Calcium Carbonate (Calcium Carbonate 750 Mg Tab.Chew) 750 mg PO Q4H PRN PRN Reason: Heartburn Dextrose (Dextrose 50 % 25 Gm/50 Ml Syringe) 25 gm IVPUSH Q15M PRN; Protocol PRN Reason: per Hypoglycemia Standing Ord. Fluticasone/Vilanterol (Fluticasone/Vilanterol 200/25 Blst.W.Dev) 1 puff INHALE RDAILY FOZIA Last Admin: 04/25/25 07:47 Dose: 1 puff Documented By: JAYNA Furosemide (Furosemide 20 Mg Tablet) 20 mg PO DAILY PRN; Protocol PRN Reason: weight gain Glucose (Glucose Gel 15 Gm Gel..Gram.) 15 gm PO Q15M PRN; Protocol PRN Reason: per Hypoglycemia Standing Ord. Hydroxychloroquine Sulfate (Hydroxychloroquine Sulfate 200 Mg Tablet) 100 mg PO DAILY@1800 [facility] Last Admin: 04/25/25 16:29 Dose: Not Given Documented By: SALVATORE Non-Admin Reason: Patient Refused Lactated Ringer's (Lr) 1,000 mls @ 125 mls/hr IVCONT .Q8H [facility] Last Admin: 04/26/25 07:53 Dose: 125 mls/hr Documented By: KIA Insulin Human Lispro (Insulin Lispro 100 Unit/Ml 3 Ml Vial) 0 unit SUBCUT QIDACHS [facility]; Protocol Last Admin: 04/26/25 07:31 Dose: Not Given Documented By: KIA Non-Admin Reason: No Insulin Coverage Losartan Potassium (Losartan Potassium 25 Mg Tablet) 25 mg PO DAILY [facility]; Protocol Last Admin: 04/26/25 07:42 Dose: 25 mg Documented By: KIA Magnesium Hydroxide (Milk Of Magnesia 30 Ml Oral.Susp) 30 ml PO DAILY PRN PRN Reason: Constipation Melatonin (Melatonin 3 Mg Tablet) 6 mg PO BEDTIME PRN PRN Reason: Insomnia Metoprolol Succinate (Metoprolol Succinate Er 25 Mg Tab.Er.24h) 25 mg PO DAILY@1800 [facility]; Protocol Last Admin: 04/25/25 17:00 Dose: 25 mg Documented By: SALVATORE Morphine Sulfate (Morphine Sulfate 4 Mg/Ml Cartridge) 2 mg IVPUSH Q4H PRN; Protocol PRN Reason: Pain, Severe (Pain Scale 7-10) Last Admin: 04/25/25 08:52 Dose: 2 mg Documented By: SALVATORE Patient Own Medication ( Synthroid 175 Mcg) 1 each PO DAILY@0600 [facility] Omeprazole (Omeprazole 40 Mg Capsule.Dr) 40 mg PO DAILY@0630 [facility] Last Admin: 04/26/25 06:09 Dose: 40 mg Documented By: DIANA Ondansetron HCl (Ondansetron Hcl 4 Mg/2 Ml Vial) 4 mg IVPUSH Q8H PRN PRN Reason: Nausea and Vomiting Last Admin: 04/25/25 17:00 Dose: 4 mg Documented By: HO.JERUSIA Sodium Chloride (0.9 % Sodium Chloride Flush 3 Ml Syringe) 3 ml IVFLUSH QSHIFT [facility] Last Admin: 04/26/25 07:21 Dose: Not Given Documented By: KIA Non-Admin Reason: IV Running Vitamin D (Cholecalciferol (Vitamin D3) 25 Mcg Tablet) 25 mcg PO DAILY [facility] Last Admin: 04/26/25 07:42 Dose: 25 mcg Documented By: KIA Labs 04/23/25 15:24 04/24/25 06:13 Labs: Laboratory Results - last 24 hr 04/24/25 17:23 Stl C. cayetanensis PCR Not Detected Stool Rotavirus A PCR Not Detected Stl Adenov F 40/41 PCR Not Detected Stool Astrovirus (PCR) Not Detected Stool Campylobacter PCR Not Detected Stool Cryptosporidium PCR Not Detected Stl Sh Tox Pr E STEC PCR Not Detected Stool E coli O157 PCR Not applicable Stl Enterotoxigenic E PCR Not Detected Stool EPEC (PCR) Not Detected Stool EAEC (PCR) Not Detected Stl E. histolytica PCR Not Detected Stool Giardia Lamblia PCR Not Detected Stl P. shigelloides PCR Not Detected Stool Salmonella PCR Not Detected Stool Sapovirus (PCR) Not Detected Stl Shigella/EIEC PCR Not Detected St Y.enterocolitica PCR Not Detected Stool Vibrio (PCR) Not Detected Stl Vibrio cholerae PCR Not Detected Stl Norovirus GI/GII PCR Not Detected Microbiology Microbiology Results: Microbiology 04/23/25 11:36 Blood Culture - Preliminary Blood - Venous No growth after 48 hours. 04/23/25 11:19 Blood Culture - Preliminary Blood - Venous No growth after 48 hours. Procedures Date of Service Date of Service: 04/26/25 Progress Note: A&P Assessment and plan (1) Abdominal pain: Status: Acute Assessment and Plan: Symptoms have improved significantly She feels that this is secondary to her pulmonary fibrosis medications Abdomen is soft and benign She is nontender Looks well overall Okay to start on clear liquids and slowly advance as tolerated Time Spent With Patient Time: Total time managing care of this patient today ____ minutes. Quality Stroke Does the patient have a stroke diagnosis?: No VTE Prior VTE?: No VTE Risk Level:: Medical - moderate - high VTE Device Contraindication: N/A - Device Ordered VTE Drug Contraindication: N/A - Med Ordered
[2025-04-26] MEDS: Fluticasone/Vilanterol 200/25 BLST.W.DEV 1 PUFF INHALE (08:23)
[2025-04-26 09:04] LABS: Glucose, Whole Blood 108 mg/dL (60-115)
[2025-04-26 09:08] LABS: Glucose, Whole Blood 112 mg/dL (60-115)
[2025-04-26 09:08] LABS: Glucose, Whole Blood 131 mg/dL (60-115)
[2025-04-26 09:14] LABS: Glucose, Whole Blood 125 mg/dL (60-115)
[2025-04-26 09:14] LABS: Glucose, Whole Blood 116 mg/dL (60-115)
[2025-04-26 09:14] LABS: Glucose, Whole Blood 120 mg/dL (60-115)
[2025-04-26 09:14] LABS: Glucose, Whole Blood 108 mg/dL (60-115)
[2025-04-26 09:14] LABS: Glucose, Whole Blood 102 mg/dL (60-115)
[2025-04-26 09:14] LABS: Glucose, Whole Blood 89 mg/dL (60-115)
[2025-04-26 09:14] LABS: Glucose, Whole Blood 90 mg/dL (60-115)
[2025-04-26 09:14] LABS: Glucose, Whole Blood 99 mg/dL (60-115)
[2025-04-26 11:12] LABS: Glucose, Whole Blood 104 mg/dL (60-115)
--- NOTE | 2025-04-26 11:24 | HO.PM.IMPN ---
Subjective Subjective Date of Service: 04/26/25 Interval History: states bilateral lower quadrant pain is better, wishes to try clear liquids wondering if pain is side effect of Gammagard rather than Daliresp diarrhea resolving Review of Systems Review of Systems: Yes all other systems are reviewed and are negative Physical Exam Vital Signs: Vital Signs: Last Vital Signs Temp 98.1 F 04/26/25 07:19 Pulse 84 04/26/25 08:24 Resp 16 04/26/25 08:24 BP 174/72 H 04/26/25 07:42 Pulse Ox 98 04/26/25 07:19 O2 Del Method Room Air 04/26/25 07:19 O2 Flow Rate 1 04/25/25 07:45 Oxygen Flow Rate 2 04/23/25 10:18 BMI result Body Mass Index 38.7 Gen: in no acute distress HEENT: sclera anicteric, moist mucus membranes Neck: supple Lungs: clear to auscultation bilaterally Heart: regular rate and rhythm, no murmurs Abd: soft, mild bilateral lower quadrant tenderness without rebound or guarding, non-distended Ext: no edema Skin: warm/well-perfused Neuro: alert and oriented x3, no focal findings Psych: appropriate affect Objective Data Active Medications Acetaminophen (Acetaminophen 325 Mg Tablet) 650 mg PO Q6H PRN PRN Reason: Pain, Mild 1-3,fever,headache Last Admin: 04/26/25 07:40 Dose: 650 mg Documented By: KIA Acetaminophen/Butalbital/Caffeine (Butalb/Acetamin/Caff 50/325/40 Tablet) 1 tab PO Q4H PRN PRN Reason: Headache Last Admin: 04/24/25 11:17 Dose: 1 tab Documented By: SALVATORE Albuterol Sulfate (Albuterol Sulfate 90 Mcg 8 Gm Inhaler) 1 puff INHALE RQ6H PRN PRN Reason: Wheezing Calcium Carbonate (Calcium Carbonate 750 Mg Tab.Chew) 750 mg PO Q4H PRN PRN Reason: Heartburn Dextrose (Dextrose 50 % 25 Gm/50 Ml Syringe) 25 gm IVPUSH Q15M PRN; Protocol PRN Reason: per Hypoglycemia Standing Ord. Fluticasone/Vilanterol (Fluticasone/Vilanterol 200/25 Blst.W.Dev) 1 puff INHALE RDAILY FOZIA Last Admin: 04/26/25 08:23 Dose: 1 puff Documented By: REED Furosemide (Furosemide 20 Mg Tablet) 20 mg PO DAILY PRN; Protocol PRN Reason: weight gain Glucose (Glucose Gel 15 Gm Gel..Gram.) 15 gm PO Q15M PRN; Protocol PRN Reason: per Hypoglycemia Standing Ord. Hydroxychloroquine Sulfate (Hydroxychloroquine Sulfate 200 Mg Tablet) 100 mg PO DAILY@1800 [facility] Last Admin: 04/25/25 16:29 Dose: Not Given Documented By: SALVATORE Non-Admin Reason: Patient Refused Lactated Ringer's (Lr) 1,000 mls @ 125 mls/hr IVCONT .Q8H [facility] Last Admin: 04/26/25 07:53 Dose: 125 mls/hr Documented By: KIA Insulin Human Lispro (Insulin Lispro 100 Unit/Ml 3 Ml Vial) 0 unit SUBCUT QIDACHS [facility]; Protocol Last Admin: 04/26/25 11:16 Dose: Not Given Documented By: KIA Non-Admin Reason: No Insulin Coverage Losartan Potassium (Losartan Potassium 25 Mg Tablet) 25 mg PO DAILY [facility]; Protocol Last Admin: 04/26/25 07:42 Dose: 25 mg Documented By: KIA Magnesium Hydroxide (Milk Of Magnesia 30 Ml Oral.Susp) 30 ml PO DAILY PRN PRN Reason: Constipation Melatonin (Melatonin 3 Mg Tablet) 6 mg PO BEDTIME PRN PRN Reason: Insomnia Metoprolol Succinate (Metoprolol Succinate Er 25 Mg Tab.Er.24h) 25 mg PO DAILY@1800 [facility]; Protocol Last Admin: 04/25/25 17:00 Dose: 25 mg Documented By: SALVATORE Morphine Sulfate (Morphine Sulfate 4 Mg/Ml Cartridge) 2 mg IVPUSH Q4H PRN; Protocol PRN Reason: Pain, Severe (Pain Scale 7-10) Last Admin: 04/25/25 08:52 Dose: 2 mg Documented By: SALVATORE Patient Own Medication ( Synthroid 175 Mcg) 1 each PO DAILY@0600 [facility] Omeprazole (Omeprazole 40 Mg Capsule.) 40 mg PO DAILY@0630 [facility] Last Admin: 04/26/25 06:09 Dose: 40 mg Documented By: DIANA Ondansetron HCl (Ondansetron Hcl 4 Mg/2 Ml Vial) 4 mg IVPUSH Q8H PRN PRN Reason: Nausea and Vomiting Last Admin: 04/25/25 17:00 Dose: 4 mg Documented By: SALVATORE Roflumilast (Roflumilast 500 Mcg Tablet) 500 mcg PO DAILY [facility] Last Admin: 04/26/25 09:48 Dose: 500 mcg Documented By: KIA Sodium Chloride (0.9 % Sodium Chloride Flush 3 Ml Syringe) 3 ml IVFLUSH QSHIFT [facility] Last Admin: 04/26/25 07:21 Dose: Not Given Documented By: KIA Non-Admin Reason: IV Running Vitamin D (Cholecalciferol (Vitamin D3) 25 Mcg Tablet) 25 mcg PO DAILY [facility] Last Admin: 04/26/25 07:42 Dose: 25 mcg Documented By: KIA Labs 04/23/25 15:24 04/24/25 06:13 Labs: Laboratory Results - last 24 hr 04/23/25 04/24/25 04/24/25 21:18 07:42 09:11 POC Glucose 108 108 131 H 04/24/25 04/24/25 04/24/25 10:57 15:07 20:16 POC Glucose 112 125 H 116 H 04/25/25 04/25/25 04/25/25 07:44 11:04 16:09 POC Glucose 120 H 102 90 04/25/25 04/26/25 04/26/25 19:30 07:21 11:03 POC Glucose 89 99 104 Microbiology Microbiology Results: Microbiology 04/23/25 11:36 Blood Culture - Preliminary Blood - Venous No growth after 48 hours. 04/23/25 11:19 Blood Culture - Preliminary Blood - Venous No growth after 48 hours. 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, MS, IBS, Raynauds, DM2 presenting with 4d of abd pain and diarrhea abd pain/diarrhea - underlying IBS vs enteritis vs possible med effect - fecal fat pending - Cdiff negative, stool WBCs negative, GI panel negative - restart Daliresp to see if symptoms recur; pt will discuss stopping Gammagard with Dr Cunningham - Gen Surg consulted, following - clear liquids, then advance as tolerated DM2 - yoan-dose lispro; hold MTF + Mounjaro chronic hypoxic RF due to pulm fibrosis - 2L O2 MAURO - CPAP at night HTN - losartan, metoprolol succinate hypogammaglobulinemia - was on Gammagard 2x/mo SLE - Benlysta monthly, daily Plaquenil asthma not in acute exac - Breo, prn albuterol, resume Daliresp hypothyroidism - continue LT4 VTE ppx - SCDs dispo - eventual home In my clinical judgment, the patient requires continued inpatient hospitalization for the following reasons: abd pain Total time managing care of this patient today: 35 minutes. Quality Stroke Does the patient have a stroke diagnosis?: No VTE Prior VTE?: No VTE Risk Level:: Medical - moderate - high VTE Device Contraindication: N/A - Device Ordered VTE Drug Contraindication: N/A - Med Ordered
--- NOTE | 2025-04-26 12:23 | MHC.CM.PN ---
Per MD rounds, not medically cleared for dc at this time. Likely tomorrow, home self care. IMM delivered. CM will continue to follow.
--- NOTE | 2025-04-26 15:40 | P.CDIM_ITS ---
PROVIDER RESPONSE TEXT: To clarify, the appropriate diagnosis supported by the clinical indicators: Clinically unable to determine (explain): outpatient diagnosis QUERY TEXT: PHYSICIAN'S DOCUMENTATION REQUEST Date of Query: 04/26/2025 09:56 AM EDT Patient Name: Naheed Luna Admit Date: 04/24/2025 Dear Wolf Rizzo MD, A review of the medical record indicates additional documentation may be needed. Please review below and update the documentation accordingly. The diagnosis of asthma was documented in the record on 04/25/25. Additional clinical indicators from the record include: Asthma not in acute exacerbation - Breo, prn Albuterol Based on the above, please clarify in the Progress Notes further specificity regarding the type and acuity of the asthma: Mild intermittent Please specify if with or without acute exacerbation or status asthmaticus Mild persistent Please specify if with or without acute exacerbation or status asthmaticus Moderate persistent Please specify if with or without acute exacerbation or status asthmaticus Severe persistent Please specify if with or without acute exacerbation or status asthmaticus Exercise induced Please specify if with or without acute exacerbation or status asthmaticus Chronic obstructive asthma and indicate if with acute lower respiratory infection Please specify if with or without acute exacerbation or status asthmaticus Asthma with underlying COPD and indicate if with acute lower respiratory infection Please specify if with or without acute exacerbation or status asthmaticus Other (explain) Clinically unable to determine (explain) Thank you, Annamarie Abdi RN Use of terms such as suspected, likely, concern for, or probable (associated with a specific diagnosis that is being evaluated, monitored, or treated as if it exists) are acceptable and can be coded in the inpatient setting, when documented at the time of discharge. Please use your independent medical judgment in providing your response. THIS QUERY IS PART OF THE PERMANENT MEDICAL RECORD
[2025-04-26 16:26] LABS: Glucose, Whole Blood 91 mg/dL (60-115)
[2025-04-26] MEDS: Metoprolol Succinate ER 25 MG TAB.ER.24H PO (18:37)
[2025-04-26 20:02] LABS: Glucose, Whole Blood 80 mg/dL (60-115)
[2025-04-27] VITALS (9 sets, daily range): BP systolic 147–170; BP diastolic 60–70; PULSE 68–77; RESP 16–18; TEMP 36–36.8; O2SAT 93–98
[2025-04-27] MEDS: Lactated Ringers 1,000 ML 125 ML IVCONT ×2 (00:34→08:03)
[2025-04-27 06:51] LABS: Anion Gap 15 (12-20); Blood Urea Nitrogen 3 mg/dL (9-16); Calcium 8.8 mg/dL (8.4-10.2); Carbon Dioxide 24 mmol/L (22-29); Chloride 110 mmol/L (96-108); Creatinine Clr Calc Pharmacy 95.8; Estimated Glomerular Filt Rate > 60; Potassium 3.4 mmol/L (3.3-5.1); Sodium 146 mmol/L (135-145)
[2025-04-27 07:38] LABS: Glucose, Whole Blood 91 mg/dL (60-115)
[2025-04-27] MEDS: Fluticasone/Vilanterol 200/25 BLST.W.DEV 1 PUFF INHALE (08:54)
--- NOTE | 2025-04-27 09:10 | P.PNGS_ITS ---
Subjective Subjective Date of Service: 04/27/25 Interval history: No abdominal pain or vomiting Now complains of diarrhea Says her joint pains have returned as meds were on hold Physical Exam 2 Vital Signs: Vital Signs: Last Vital Signs Temp 96.8 F 04/27/25 07:23 Pulse 71 04/27/25 08:57 Resp 18 04/27/25 08:57 BP 147/67 H 04/27/25 08:03 Pulse Ox 97 04/27/25 07:23 O2 Del Method Room Air 04/27/25 07:23 O2 Flow Rate 1 04/25/25 07:45 Oxygen Flow Rate 2 04/23/25 10:18 BMI result Body Mass Index 38.7 Const: General: comfortable and no acute distress Resp: Effort & Inspection: normal respiratory effort Cardio: Rate: regular rate GI: Palpation (GI): Soft to palpation, not firm, nontender and no guarding Objective Data Active Medications Acetaminophen (Acetaminophen 325 Mg Tablet) 650 mg PO Q6H PRN PRN Reason: Pain, Mild 1-3,fever,headache Last Admin: 04/26/25 07:40 Dose: 650 mg Documented By: KIA Acetaminophen/Butalbital/Caffeine (Butalb/Acetamin/Caff 50/325/40 Tablet) 1 tab PO Q4H PRN PRN Reason: Headache Last Admin: 04/24/25 11:17 Dose: 1 tab Documented By: SALVATORE Albuterol Sulfate (Albuterol Sulfate 90 Mcg 8 Gm Inhaler) 1 puff INHALE RQ6H PRN PRN Reason: Wheezing Calcium Carbonate (Calcium Carbonate 750 Mg Tab.Chew) 750 mg PO Q4H PRN PRN Reason: Heartburn Dextrose (Dextrose 50 % 25 Gm/50 Ml Syringe) 25 gm IVPUSH Q15M PRN; Protocol PRN Reason: per Hypoglycemia Standing Ord. Diphenhydramine HCl (Diphenhydramine Hcl 50 Mg/Ml Vial) 25 mg IVPUSH Q6H PRN PRN Reason: itching Fluticasone/Vilanterol (Fluticasone/Vilanterol 200/25 Blst.W.Dev) 1 puff INHALE RDAILY FOZIA Last Admin: 04/27/25 08:54 Dose: 1 puff Documented By: OCHOA Furosemide (Furosemide 20 Mg Tablet) 20 mg PO DAILY PRN; Protocol PRN Reason: weight gain Glucose (Glucose Gel 15 Gm Gel..Gram.) 15 gm PO Q15M PRN; Protocol PRN Reason: per Hypoglycemia Standing Ord. Hydroxychloroquine Sulfate (Hydroxychloroquine Sulfate 200 Mg Tablet) 100 mg PO DAILY@1800 [facility] Last Admin: 04/26/25 18:31 Dose: Not Given Documented By: KIA Non-Admin Reason: Patient Refused Insulin Human Lispro (Insulin Lispro 100 Unit/Ml 3 Ml Vial) 0 unit SUBCUT QIDACHS [facility]; Protocol Last Admin: 04/27/25 07:40 Dose: Not Given Documented By: KIA Non-Admin Reason: No Insulin Coverage Loperamide HCl (Loperamide Hcl 2 Mg Capsule) 2 mg PO Q4H PRN PRN Reason: diarrhea Last Admin: 04/27/25 08:03 Dose: 2 mg Documented By: KIA Losartan Potassium (Losartan Potassium 25 Mg Tablet) 25 mg PO DAILY [facility]; Protocol Last Admin: 04/27/25 08:03 Dose: 25 mg Documented By: KIA Magnesium Hydroxide (Milk Of Magnesia 30 Ml Oral.Susp) 30 ml PO DAILY PRN PRN Reason: Constipation Melatonin (Melatonin 3 Mg Tablet) 6 mg PO BEDTIME PRN PRN Reason: Insomnia Metoprolol Succinate (Metoprolol Succinate Er 25 Mg Tab.Er.24h) 25 mg PO DAILY@1800 [facility]; Protocol Last Admin: 04/26/25 18:37 Dose: 25 mg Documented By: KIA Morphine Sulfate (Morphine Sulfate 4 Mg/Ml Cartridge) 2 mg IVPUSH Q4H PRN; Protocol PRN Reason: Pain, Severe (Pain Scale 7-10) Last Admin: 04/26/25 18:37 Dose: 2 mg Documented By: KIA Patient Own Medication ( Synthroid 175 Mcg) 1 each PO DAILY@0600 [facility] Omeprazole (Omeprazole 40 Mg Capsule.) 40 mg PO DAILY@0630 [facility] Last Admin: 04/27/25 06:09 Dose: 40 mg Documented By: DIANA Ondansetron HCl (Ondansetron Hcl 4 Mg/2 Ml Vial) 4 mg IVPUSH Q8H PRN PRN Reason: Nausea and Vomiting Last Admin: 04/25/25 17:00 Dose: 4 mg Documented By: SALVATORE Sodium Chloride (0.9 % Sodium Chloride Flush 3 Ml Syringe) 3 ml IVFLUSH QSHIFT [facility] Last Admin: 04/27/25 07:10 Dose: Not Given Documented By: KIA Non-Admin Reason: IV Running Vitamin D (Cholecalciferol (Vitamin D3) 25 Mcg Tablet) 25 mcg PO DAILY [facility] Last Admin: 04/27/25 08:03 Dose: 25 mcg Documented By: KIA Labs 04/23/25 15:24 04/27/25 05:36 Labs: Laboratory Results - last 24 hr 04/24/25 04/24/25 04/24/25 07:42 15:07 20:16 Hold Purple Top Anion Gap Estim Creat Clear Calc Estimated GFR POC Glucose 108 125 H 116 H Random Glucose Calcium C-Reactive Protein 04/25/25 04/25/25 04/25/25 07:44 11:04 16:09 Hold Purple Top Anion Gap Estim Creat Clear Calc Estimated GFR POC Glucose 120 H 102 90 Random Glucose Calcium C-Reactive Protein 04/25/25 04/26/25 04/26/25 19:30 07:21 11:03 Hold Purple Top Anion Gap Estim Creat Clear Calc Estimated GFR POC Glucose 89 99 104 Random Glucose Calcium C-Reactive Protein 04/26/25 04/26/25 04/27/25 16:16 19:48 05:36 Hold Purple Top SEE NOTE Anion Gap 15 Estim Creat Clear Calc 95.8 Estimated GFR > 60 POC Glucose 91 80 Random Glucose 82 Calcium 8.8 C-Reactive Protein 2.87 H 04/27/25 07:25 Hold Purple Top Anion Gap Estim Creat Clear Calc Estimated GFR POC Glucose 91 Random Glucose Calcium C-Reactive Protein Procedures Date of Service Date of Service: 04/27/25 Progress Note: A&P Assessment and plan (1) Abdominal pain: Status: Acute Assessment and Plan: Abdominal pain has resolved With diarrhea now Abdomen is soft and benign Check stools for C diff Okay to slowly advance diet as tolerated Looks well overall Time Spent With Patient Time: Total time managing care of this patient today ____ minutes. Quality Stroke Does the patient have a stroke diagnosis?: No VTE Prior VTE?: No VTE Risk Level:: Medical - moderate - high VTE Device Contraindication: N/A - Device Ordered VTE Drug Contraindication: N/A - Med Ordered
[2025-04-27 11:40] LABS: Glucose, Whole Blood 84 mg/dL (60-115)
--- NOTE | 2025-04-27 16:01 | P.PNIM_ITS ---
Subjective Subjective Date of Service: 04/27/25 Interval History: bilateral lower quadrant pain is better Still with diarrhea Review of Systems Review of Systems: Yes all other systems are reviewed and are negative Physical Exam 2 Exam: Exam: Appearing in no acute distress lung sounds are clear to auscultation heart regular rate rhythm, clear S1, S2 positive bowel sounds, abdomen is soft, nontender neuro patient is alert x3, no focal deficits Vital Signs: Vital Signs: Last Vital Signs Temp 98.2 F 04/27/25 15:49 Pulse 76 04/27/25 15:49 Resp 18 04/27/25 15:49 BP 148/67 H 04/27/25 15:49 Pulse Ox 93 04/27/25 15:49 O2 Del Method Room Air 04/27/25 07:23 O2 Flow Rate 1 04/25/25 07:45 Oxygen Flow Rate 2 04/23/25 10:18 BMI result Body Mass Index 38.7 Objective Data Active Medications Acetaminophen (Acetaminophen 325 Mg Tablet) 650 mg PO Q6H PRN PRN Reason: Pain, Mild 1-3,fever,headache Last Admin: 04/26/25 07:40 Dose: 650 mg Documented By: KIA Acetaminophen/Butalbital/Caffeine (Butalb/Acetamin/Caff 50/325/40 Tablet) 1 tab PO Q4H PRN PRN Reason: Headache Last Admin: 04/24/25 11:17 Dose: 1 tab Documented By: SALVATORE Albuterol Sulfate (Albuterol Sulfate 90 Mcg 8 Gm Inhaler) 1 puff INHALE RQ6H PRN PRN Reason: Wheezing Calcium Carbonate (Calcium Carbonate 750 Mg Tab.Chew) 750 mg PO Q4H PRN PRN Reason: Heartburn Dextrose (Dextrose 50 % 25 Gm/50 Ml Syringe) 25 gm IVPUSH Q15M PRN; Protocol PRN Reason: per Hypoglycemia Standing Ord. Diphenhydramine HCl (Diphenhydramine Hcl 50 Mg/Ml Vial) 25 mg IVPUSH Q6H PRN PRN Reason: itching Fluticasone/Vilanterol (Fluticasone/Vilanterol 200/25 Blst.W.Dev) 1 puff INHALE RDAILY FOZIA Last Admin: 04/27/25 08:54 Dose: 1 puff Documented By: HO.BRESNE Furosemide (Furosemide 20 Mg Tablet) 20 mg PO DAILY PRN; Protocol PRN Reason: weight gain Glucose (Glucose Gel 15 Gm Gel..Gram.) 15 gm PO Q15M PRN; Protocol PRN Reason: per Hypoglycemia Standing Ord. Hydroxychloroquine Sulfate (Hydroxychloroquine Sulfate 200 Mg Tablet) 100 mg PO DAILY@1800 [facility] Last Admin: 04/26/25 18:31 Dose: Not Given Documented By: KIA Non-Admin Reason: Patient Refused Insulin Human Lispro (Insulin Lispro 100 Unit/Ml 3 Ml Vial) 0 unit SUBCUT QIDACHS [facility]; Protocol Last Admin: 04/27/25 11:42 Dose: Not Given Documented By: KIA Non-Admin Reason: No Insulin Coverage Loperamide HCl (Loperamide Hcl 2 Mg Capsule) 2 mg PO Q4H PRN PRN Reason: diarrhea Last Admin: 04/27/25 08:03 Dose: 2 mg Documented By: KIA Losartan Potassium (Losartan Potassium 25 Mg Tablet) 25 mg PO DAILY [facility]; Protocol Last Admin: 04/27/25 08:03 Dose: 25 mg Documented By: KIA Magnesium Hydroxide (Milk Of Magnesia 30 Ml Oral.Susp) 30 ml PO DAILY PRN PRN Reason: Constipation Melatonin (Melatonin 3 Mg Tablet) 6 mg PO BEDTIME PRN PRN Reason: Insomnia Metoprolol Succinate (Metoprolol Succinate Er 25 Mg Tab.Er.24h) 25 mg PO DAILY@1800 [facility]; Protocol Last Admin: 04/26/25 18:37 Dose: 25 mg Documented By: KIA Morphine Sulfate (Morphine Sulfate 4 Mg/Ml Cartridge) 2 mg IVPUSH Q4H PRN; Protocol PRN Reason: Pain, Severe (Pain Scale 7-10) Last Admin: 04/26/25 18:37 Dose: 2 mg Documented By: KIA Patient Own Medication ( Synthroid 175 Mcg) 1 each PO DAILY@0600 [facility] Omeprazole (Omeprazole 40 Mg Capsule.) 40 mg PO DAILY@0630 [facility] Last Admin: 04/27/25 06:09 Dose: 40 mg Documented By: DIANA Ondansetron HCl (Ondansetron Hcl 4 Mg/2 Ml Vial) 4 mg IVPUSH Q8H PRN PRN Reason: Nausea and Vomiting Last Admin: 04/25/25 17:00 Dose: 4 mg Documented By: SALVATORE Sodium Chloride (0.9 % Sodium Chloride Flush 3 Ml Syringe) 3 ml IVFLUSH QSHIFT [facility] Last Admin: 04/27/25 15:18 Dose: Not Given Documented By: KIA Non-Admin Reason: IV Running Vitamin D (Cholecalciferol (Vitamin D3) 25 Mcg Tablet) 25 mcg PO DAILY [facility] Last Admin: 04/27/25 08:03 Dose: 25 mcg Documented By: KIA Labs 04/23/25 15:24 04/27/25 05:36 Labs: Laboratory Results - last 24 hr 04/26/25 04/26/25 04/27/25 16:16 19:48 05:36 Hold Purple Top SEE NOTE Anion Gap 15 Estim Creat Clear Calc 95.8 Estimated GFR > 60 POC Glucose 91 80 Random Glucose 82 Calcium 8.8 C-Reactive Protein 2.87 H 04/27/25 04/27/25 07:25 11:35 Hold Purple Top Anion Gap Estim Creat Clear Calc Estimated GFR POC Glucose 91 84 Random Glucose Calcium C-Reactive Protein Assessment and Plan (1) Gastroenteritis: Status: Acute Plan 69yo F with 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, asthma, MAURO on CPAP, SLE on Benlysta, hypogammoglobulinemia on Gammagard, MS, IBS, Raynauds, DM2 presenting with 4d of abd pain and diarrhea Abd pain/diarrhea No diverticulitis on abdominal CT underlying IBS vs enteritis vs possible med effect fecal fat pending Cdiff negative, stool WBCs negative, GI panel negative possibly secondary to Daliresp pt will discuss stopping Gammagard with Dr Cunningham Gen Surg following diet advanced DM2 yoan-dose lispro; hold MTF + Mounjaro chronic hypoxic RF due to pulm fibrosis 2L O2, usually with activity and at night MAURO CPAP at night HTN losartan, metoprolol succinate hypogammaglobulinemia was on Gammagard 2x/mo SLE Benlysta monthly, daily Plaquenil asthma not in acute exac Breo, prn albuterol hypothyroidism, Nelia's continue LT4 VTE ppx SCDs dispo eventual home Total time managing care of this patient today: 35 minutes. Quality Stroke Does the patient have a stroke diagnosis?: No VTE Prior VTE?: No VTE Risk Level:: Medical - moderate - high VTE Device Contraindication: N/A - Device Ordered VTE Drug Contraindication: N/A - Med Ordered
[2025-04-27 16:24] LABS: Glucose, Whole Blood 99 mg/dL (60-115)
[2025-04-27] MEDS: Metoprolol Succinate ER 25 MG TAB.ER.24H PO (17:34)
[2025-04-27 21:08] LABS: Glucose, Whole Blood 127 mg/dL (60-115)
[2025-04-28] MEDS: 0.9 % Sodium Chloride Flush 3 ML SYRINGE IVFLUSH ×2 (00:27→08:28)
[2025-04-28 03:03] VITALS: BP 159/66; PULSE 78; RESP 16; TEMP 36.1; O2SAT 96
[2025-04-28 07:18] VITALS: BP 142/65; PULSE 65; RESP 16; TEMP 36; O2SAT 97
[2025-04-28 07:40] LABS: Glucose, Whole Blood 112 mg/dL (60-115)
--- NOTE | 2025-04-28 08:06 | PM.PNGS ---
Subjective Subjective Date of Service: 04/28/25 Interval history: Complains of joint pains She is extremely worried about her arthritis Otherwise tolerating diet well No abdominal pain Physical Exam Vital Signs: Vital Signs: Last Vital Signs Temp 96.8 F 04/28/25 07:18 Pulse 65 04/28/25 07:18 Resp 16 04/28/25 07:18 BP 142/65 H 04/28/25 07:18 Pulse Ox 97 04/28/25 07:18 O2 Del Method Room Air 04/28/25 07:18 O2 Flow Rate 1 04/25/25 07:45 Oxygen Flow Rate 2 04/23/25 10:18 BMI result Body Mass Index 38.7 Const: General: comfortable and no acute distress Resp: Effort & Inspection: normal respiratory effort Cardio: Rate: regular rate GI: Palpation (GI): Soft to palpation, not firm, nontender and no guarding Objective Data Active Medications Acetaminophen (Acetaminophen 325 Mg Tablet) 650 mg PO Q6H PRN PRN Reason: Pain, Mild 1-3,fever,headache Last Admin: 04/28/25 03:23 Dose: 650 mg Documented By: NATA Acetaminophen/Butalbital/Caffeine (Butalb/Acetamin/Caff 50/325/40 Tablet) 1 tab PO Q4H PRN PRN Reason: Headache Last Admin: 04/24/25 11:17 Dose: 1 tab Documented By: SALVATORE Albuterol Sulfate (Albuterol Sulfate 90 Mcg 8 Gm Inhaler) 1 puff INHALE RQ6H PRN PRN Reason: Wheezing Calcium Carbonate (Calcium Carbonate 750 Mg Tab.Chew) 750 mg PO Q4H PRN PRN Reason: Heartburn Dextrose (Dextrose 50 % 25 Gm/50 Ml Syringe) 25 gm IVPUSH Q15M PRN; Protocol PRN Reason: per Hypoglycemia Standing Ord. Diphenhydramine HCl (Diphenhydramine Hcl 50 Mg/Ml Vial) 25 mg IVPUSH Q6H PRN PRN Reason: itching Fluticasone/Vilanterol (Fluticasone/Vilanterol 200/25 Blst.W.Dev) 1 puff INHALE RDAILY FOZIA Last Admin: 04/27/25 08:54 Dose: 1 puff Documented By: OCHOA Furosemide (Furosemide 20 Mg Tablet) 20 mg PO DAILY PRN; Protocol PRN Reason: weight gain Glucose (Glucose Gel 15 Gm Gel..Gram.) 15 gm PO Q15M PRN; Protocol PRN Reason: per Hypoglycemia Standing Ord. Hydroxychloroquine Sulfate (Hydroxychloroquine Sulfate 200 Mg Tablet) 100 mg PO DAILY@1800 [facility] Last Admin: 04/27/25 16:58 Dose: Not Given Documented By: KIA Non-Admin Reason: Patient Refused Insulin Human Lispro (Insulin Lispro 100 Unit/Ml 3 Ml Vial) 0 unit SUBCUT QIDACHS [facility]; Protocol Last Admin: 04/28/25 07:50 Dose: Not Given Documented By: NATA Non-Admin Reason: No Insulin Coverage Loperamide HCl (Loperamide Hcl 2 Mg Capsule) 2 mg PO Q4H PRN PRN Reason: diarrhea Last Admin: 04/27/25 08:03 Dose: 2 mg Documented By: KIA Losartan Potassium (Losartan Potassium 25 Mg Tablet) 25 mg PO DAILY [facility]; Protocol Last Admin: 04/27/25 08:03 Dose: 25 mg Documented By: KIA Magnesium Hydroxide (Milk Of Magnesia 30 Ml Oral.Susp) 30 ml PO DAILY PRN PRN Reason: Constipation Melatonin (Melatonin 3 Mg Tablet) 6 mg PO BEDTIME PRN PRN Reason: Insomnia Metoprolol Succinate (Metoprolol Succinate Er 25 Mg Tab.Er.24h) 25 mg PO DAILY@1800 [facility]; Protocol Last Admin: 04/27/25 17:34 Dose: 25 mg Documented By: KIA Morphine Sulfate (Morphine Sulfate 4 Mg/Ml Cartridge) 2 mg IVPUSH Q4H PRN; Protocol PRN Reason: Pain, Severe (Pain Scale 7-10) Last Admin: 04/26/25 18:37 Dose: 2 mg Documented By: KIA Patient Own Medication ( Synthroid 175 Mcg) 1 each PO DAILY@0600 [facility] Omeprazole (Omeprazole 40 Mg Capsule.) 40 mg PO DAILY@0630 [facility] Last Admin: 04/27/25 06:09 Dose: 40 mg Documented By: DIANA Ondansetron HCl (Ondansetron Hcl 4 Mg/2 Ml Vial) 4 mg IVPUSH Q8H PRN PRN Reason: Nausea and Vomiting Last Admin: 04/25/25 17:00 Dose: 4 mg Documented By: SALVATORE Sodium Chloride (0.9 % Sodium Chloride Flush 3 Ml Syringe) 3 ml IVFLUSH QSHIFT [facility] Last Admin: 04/28/25 00:27 Dose: 3 ml Documented By: JOANN Vitamin D (Cholecalciferol (Vitamin D3) 25 Mcg Tablet) 25 mcg PO DAILY [facility] Last Admin: 04/27/25 08:03 Dose: 25 mcg Documented By: KIA Labs 04/23/25 15:24 04/27/25 05:36 Labs: Laboratory Results - last 24 hr 04/27/25 04/27/25 04/27/25 11:35 16:06 20:45 POC Glucose 84 99 127 H 04/28/25 07:22 POC Glucose 112 Procedures Date of Service Date of Service: 04/28/25 Progress Note: A&P Assessment and plan (1) Lower abdominal pain: Status: Acute Assessment and Plan: Likely from enteritis Symptoms have resolved She has good GI functions She has concerns about control of her arthritis Would recommend follow up with client technologies specialist The rest of her care as per the hospitalist service Time Spent With Patient Time: Total time managing care of this patient today ____ minutes. Quality Stroke Does the patient have a stroke diagnosis?: No VTE Prior VTE?: No VTE Risk Level:: Medical - moderate - high VTE Device Contraindication: N/A - Device Ordered VTE Drug Contraindication: N/A - Med Ordered
[2025-04-28] MEDS: Fluticasone/Vilanterol 200/25 BLST.W.DEV 1 PUFF INHALE (08:34)
[2025-04-28 08:40] VITALS: PULSE 65; RESP 16; O2SAT 97
--- NOTE | 2025-04-28 10:46 | MHC.CM.PN ---
Per MD rounds patient medically cleared for dc home self care. to transport. RN aware.
--- NOTE | 2025-04-28 11:35 | PM.DS ---
DS: Providers Provider Date of Service: 04/28/25 Date of admission: 04/24/25 13:27 Date of discharge: 04/28/25 Primary care physician: Richard Mcelroy NP DS: Diagnosis Discharge Diagnosis (1) Lower abdominal pain: Status: Acute DS: Summary Hospital Course Hospital Course: from initial hpi: 69-year-old female with complicated past medical history who presents to the emergency department with abdominal pain. She reports several week history of decreased appetite, liquid stools and progressively worsening bilateral lower quadrant abdominal pain. Pain is worse after eating. She has had associated nausea and chills but denies vomiting. She has not had fever although she states that she never develops a fever when she is ill. She denies any recent sick contacts or travel. She has had takeout food that she has shared with others who did not get sick. In the emergency department she was afebrile lab work revealed no leukocytosis and the rest of her labs were mostly unremarkable. CT scan of the abdomen and pelvis showed diverticulosis without evidence of diverticulitis. No etiology of her abdominal pain. She was seen by General surgery who felt symptoms could possibly be related to enteritis. She will be admitted for observation hospital course: Patient was admitted for abdominal pain diarrhea, CT abdomen unremarkable, likely underlying IBS versus enteritis versus reaction to roflumilast. Patient's symptoms improved and was able to tolerate solids. We will follow up outpatient with Hematology and Rheumatology. For diabetes was continued on insulin. For chronic hypoxic respiratory failure due to pulmonary fibrosis was continue with 2 L O2, for MAURO uses CPAP at night. For hypertension continue losartan and Toprol. For hypogammaglobulinemia was continued on Gammagard. For SLE was continued on Plaquenil and will follow up with Rheumatology. For unspecified asthma was continued on Breo, for hypothyroid continued on levothyroxine. Patient will be discharged home. Time Attestation Discharge Coordination Time (in mins): 34 Quality: Safe Use of Opioids Does Pt have an Active Cancer Diagnosis on the Problem List?: No Quality: Stroke Does the patient have a stroke diagnosis?: No Physical Exam Exam: Exam: General: AO X 3, no acute distress Resp: CTA bilateral, no accessory muscles used CVS: S1,S2,RRR GI: soft, non tender, non distended Neuro: motor grossly intact, alert Psych: appropriate affect, appropriate insight Vital Signs: Vital Signs: Last Vital Signs Temp 96.8 F 04/28/25 07:18 Pulse 65 04/28/25 08:40 Resp 16 04/28/25 08:40 BP 142/65 H 04/28/25 07:18 Pulse Ox 97 04/28/25 07:18 O2 Del Method Room Air 04/28/25 07:18 O2 Flow Rate 1 04/25/25 07:45 Oxygen Flow Rate 2 04/23/25 10:18 BMI result Body Mass Index 38.7 DS: Data Data Completed and Pending Labs on day of discharge: Laboratory Results - last 24 hr 04/27/25 04/27/25 04/27/25 11:35 16:06 20:45 POC Glucose 84 99 127 H 04/28/25 07:22 POC Glucose 112 Preliminary micro results at discharge 04/23/25 11:36 Blood Culture - Preliminary Blood - Venous No growth after 48 hours. 04/23/25 11:19 Blood Culture - Preliminary Blood - Venous No growth after 48 hours. Discharge Plan Discharge Anticipated Discharge Date/Time: 04/28/25 11:34 Patient Disposition: Home, Self-Care Discharge Diagnosis: gastroenteritis Referrals: Richard Mcelroy, [employer] [Primary Care Provider, Primary Care] - 1 Week Discharge Medications: Continued levalbuterol tartrate 45 mcg/actuation HFA aerosol inhaler 1 - 2 puff inhalation Q4H PRN (Reason: wheezing) 30 Days Qty: 15 11RF Gammagard Liquid 10 % solution 20 g IV Q2W metoprolol succinate 50 mg tablet extended release 24 hr 25 mg PO DAILY Benlysta 400 mg Recon Soln 1,100 mg IV Q4W Rx Instructions: administer over 60 mins metformin 500 mg Tablet,Er Keesha.Retention 24 Hr 500 mg PO DAILY levothyroxine [Synthroid] 175 mcg Tablet 175 mcg PO DAILY@0600 Rx Instructions: Brand Name Only!! ondansetron 8 mg Tablet,Disintegrating 8 mg PO Q8H Qty: 60 3RF hydroxychloroquine 200 mg tablet 100 mg PO DAILY losartan 25 mg tablet 25 mg PO DAILY cetirizine [Zyrtec] 10 mg tablet 10 mg PO DAILY PRN (Reason: Allergy Symptoms) omeprazole 10 mg capsule,delayed release(DR/EC) 20 mg PO DAILY@0630 (DME) nebulizers Misc See Rx Instructions .Route Rx Instructions: As directed Mounjaro 5 mg/0.5 mL pen injector 7.5 mg subcut TU fluticasone propion-salmeterol [Wixela Inhub] 500-50 mcg/dose blister with device 1 inh inhalation BID Qty: 60 11RF furosemide [Lasix] 20 mg tablet 20 mg PO DAILY PRN (Reason: weight gain) 30 Days Qty: 30 0RF Discontinued roflumilast [Daliresp] 500 mcg tablet 500 mcg PO DAILY 30 Days Qty: 30 11RF Discharge Orders: Discharge Order (Routine); Ordered 04/28/25 Ordered By: Daniel Colbert Stand Alone Forms: Patient Portal Discharge page Print Language: Irish Care Plan Goals: recovery Health Concerns: sle, autoimmune disorder Plan of Treatment: follow up with rheumatology Assessment: see above
[2025-04-28 11:40] LABS: Glucose, Whole Blood 127 mg/dL (60-115)
[2025-04-28] MEDS: Heparin Sodium,Porcine Flush 50 UNITS/5 ML SYRINGE IVFLUSH (12:15)
== END 2025-04-28 13:06 | disposition home or self-care (01) | DRG 392 ==
LOC: HO.ED 15:28 → HO.EDOVER 17:14 → HO.S3 04-24 07:44
PROVIDERS: Family Medicine; Nurse Practitioner Acute Care; Physician Assistant; Admitting Provider Physician Assistant Medical; Emergency Provider Emergency Medicine Emergency Medical Services; PCP Nurse Practitioner Acute Care; Visit Provider Internal Medicine
DX: K52.9 Noninfective gastroenteritis and colitis, unspecified (principal); J96.11 Chronic respiratory failure with hypoxia; D80.1 Nonfamilial hypogammaglobulinemia; J45.909 Unspecified asthma, uncomplicated; G47.33 Obstructive sleep apnea (adult) (pediatric); J84.10 Pulmonary fibrosis, unspecified; M32.9 Systemic lupus erythematosus, unspecified; I10 Essential (primary) hypertension; L27.0 Generalized skin eruption due to drugs and medicaments taken internally; T48.6X5A Adverse effect of antiasthmatics, initial encounter; D47.2 Monoclonal gammopathy; E06.3 Autoimmune thyroiditis; K58.9 Irritable bowel syndrome, unspecified; Z99.81 Dependence on supplemental oxygen; Z87.891 Personal history of nicotine dependence; Z79.51 Long term (current) use of inhaled steroids; Z79.84 Long term (current) use of oral hypoglycemic drugs; Z79.620 Long term (current) use of immunosuppressive biologic; Z79.890 Hormone replacement therapy; Z79.899 Other long term (current) drug therapy
CPT/HCPCS: 36415; 74177; 80048; 80053; 82272; 82705; 82947; 83605; 83690; 83735; 85025; 86140; 87040; 87493; 87507; 89055; 94640; 94660; 99221; 99285; J1171; J1200; J1642; J2270; J2405; J2543; J7120; Q9967

== ENCOUNTER → 2025-04-23 10:12 | Outpatient (BNV) | payer MEDICARE, BC, SELFPAY | PROVIDERS: Emergency Provider Emergency Medicine Emergency Medical Services; Visit Provider Radiology Diagnostic Radiology | DX: K76.0 Fatty (change of) liver, not elsewhere classified (principal) | CPT/HCPCS: 74177 ==

== ENCOUNTER → 2025-04-23 16:23 | Outpatient (BNV) | payer MEDICARE, BC, SELFPAY | PROVIDERS: Admitting Provider Physician Assistant Medical; Emergency Provider Emergency Medicine Emergency Medical Services; PCP Nurse Practitioner Acute Care; Visit Provider Family Medicine | DX: K52.9 Noninfective gastroenteritis and colitis, unspecified (principal) | CPT/HCPCS: 99223; 99232 ==

== ENCOUNTER → 2025-04-23 16:23 | Outpatient (BNV) | payer MEDICARE, BC, SELFPAY | PROVIDERS: Admitting Provider Physician Assistant Medical; Emergency Provider Emergency Medicine Emergency Medical Services; PCP Nurse Practitioner Acute Care; Visit Provider Surgery | DX: R10.9 Unspecified abdominal pain (principal) | CPT/HCPCS: 99222; 99232 ==

== ENCOUNTER 2025-05-06 14:44 | Outpatient (AMB) | payer MEDICARE, BC, SELFPAY ==
[2025-05-06 14:46] VITALS: BP 128/67; PULSE 75; O2SAT 98; BMI 37.1
--- NOTE | 2025-05-06 14:46 | MHC.OFFVIS ---
Vital Signs 05/06/25 14:46 Height 5 ft 6 in Weight 230 lb BMI 37.1 BP 128/67 Blood Pressure Location Rt brachial Position Sitting Pulse 75 Pulse Source Pulse Oximeter Pulse Oximetry (%) 98 Oxygen Delivery Method Room Air Intake Visit Reasons: ILD/CPAP Continuous Allergies denosumab (From Prolia) Allergy (Intermediate, Verified 05/06/25 14:54) Muscle Pain rofecoxib (From Vioxx) Allergy (Verified 05/06/25 14:54) Unknown Dcszhgd-QQY-OpF Reductase Inhibitor Allergy (Verified 05/06/25 14:54) Muscle cramps Iodinated Contrast Media Adverse Reaction (Intermediate, Verified 05/06/25 14:54) Unknown HPI Comments Details: The patient is a 69 year woman with a known history of lupus in addition to underlying pulmonary fibrosis. The patient did have a severe case of COVID requiring hospital level of care. CT scan during that admission back in 2020 demonstrated evidence of ground-glass opacities. Subsequent imaging studies demonstrated reticular changes consistent with pulmonary fibrosis. In the meantime the patient does follow-up the arthritis center for her connective tissue disease. He was diagnosed with lupus. Currently on hydrochloroquine. She continues to have significant musculoskeletal discomfort inflammatory arthritis. The patient back in November 2023 develop worsening chest pain in addition to shortness of breath. She was brought to the [facility] ER where she was evaluated. She had a CTA that I personally reviewed. No evidence of any pulmonary emboli. Although the patient did have significant pneumonitis in addition to pleural thickening suggesting a pleuritis related to her underlying connective tissue disease. She responded to additional Medrol therapy. At this point the patient continues to have pleuritic chest pain and shortness of breath. Although better overall. She was hoping to start immunomodulator therapy such as mycophenolate. In the past she had been offered other immuno modulator such as methotrexate but she was concerned about the potential side effects. Explained to her the mycophenolate also has significant side effects although better option then being on the chronic steroids. Will have to monitor closely her laboratories while she is on it. Therefore she will have blood work before she begins it. Will start slowly and workup to the lowest most effective dose. In addition to that the patient will have additional blood work done to assess for other etiologies for the pneumonitis. The patient also should have a repeat CT scan of the chest to assess the response to the immunomodulator therapy. 03/03/2024 the patient is here for a pulmonary follow-up visit. Overall she is doing okay. She had a tough springtime with significant allergies although she has getting a little better at this time. She also started the mycophenolate. Did initially caused her to have significant fatigue. She did develop tolerance and she has been tolerating better. The patient is able to then increase it to twice a day causing her some headaches. However, she is also developed tolerance and she is doing better with it. We did review her recent CT scan of the chest and we did compare to her previous CTA. Significant improvement in the ground-glass opacity throughout. She still has some patchy areas but very minimal. She does have some scarring at the right base likely from further organization of the inflammatory process. Significantly better. At this point she is on adequate dose based on her response to therapy. The patient also continues have infections. She has had issues with sinuses and issues with her eyes with current infections and now immunocompromised on the immunomodulator therapy. We did check her IgG levels and she has a significantly low IgG level at this time. Therefore, I do believe that with the ongoing respiratory infections and other non respiratory infections treatment with IVIG will be very affecting beneficial. Will go ahead and start the process to have her start IVIG every 4 weeks. The patient also has been using her PAP therapy. I believe she uses the BiPAP. Is followed closely by her doctors in [place]. Recently was adjusted. When she had an overnight oximetry but was on room air so therefore not very helpful she did desaturate but again she was not on her PAP therapy. 04/14/2024 the patient is here for a follow-up visit. The patient has been struggling. . However, her insurance denied herShe had COVID about a month ago. Then after that she is having significant sinusitis. Significant good chest congestion and cough. She has had also postnasal drip. Cough is moderate severe. Sometimes is barky in nature. The patient does have hypogammaglobulinemia and does take immunosuppressant therapy so therefore she is at risk for worsening infectious process. We did try start her on IVIG but her insurance company required additional information. We did get titers of her pneumococcal vaccine. Appears that about half of the titers are low suggesting a ineffective response to the vaccine. In addition to that with the increasing infectious processes and respiratory illnesses she definitely will benefit from IVIG. The patient also has lupus. She has been on immunosuppressant therapy for lupus. This also flaring up may have been activator precipitated by her COVID infection. She will need additional steroids. The patient will follow-up with her carroting machine operator in the next few weeks. She can have her levels checked again. In the meantime the patient will require antibiotics and also additional Medrol. In addition to that the patient mentioned that when she was initially evaluated for hypogammaglobulinemia she was found to have abnormal protein levels suggesting of multiple myeloma. Then, additional testing may less likely. She has not been evaluated for any blood dyscrasias. But with her immunocompromised condition, hypoglobulinemia chronic infections this should be further evaluated. Therefore will refer her to Hematology. 05/22/2024 the patient is here for pulmonary follow-up visit. She is still struggling with recurrent infections. She is developing again significant sinus congestion and sinus pressure. Will go ahead and start her on prophylactic antibiotics. She has significant hypogammaglobulinemia with decrease in her pneumococcal titers after appropriate vaccination. Therefore, she needs to start IVIG, however, her insurance denied her the much needed therapy. She is going to make her Appeal to the insurance company. Unfortunately, the insurance company also denied my ability to request an appeal. Although it is very clear the patient needs therapy and is better of time for the insurance company to approve it. The patient continues on the CellCept. She also continues on the Medrol. She will be starting Benlysta by her carroting machine operator. Hopefully we can wean off some of the Medrol when she is on the Benlysta. From a interstitial lung disease he seems to be responding to the CellCept. She also did follow-up with Hematology. It appears that the blood work for evaluation of multiple myeloma is negative which is reassuring. However she will follow-up with Hematology for further input. 07/31/2024 the patient is here for a pulmonary follow-up visit. Overall she has other complaints now. She is having hard time walking and significant muscle discomfort. She did have her CPK checked and they were considered to be normal. She did look at her medications in the only medication she could find that could have that adverse effect would be the mycophenolate. In addition to that her liver function studies have been climbing. Therefore she will stop it. She has been under Benlysta that is been helping her arthritis. Will have to make sure that her pulmonary interstitial lung disease has not get worse but will go ahead and stop the mycophenolate right now. She has been on the Medrol. In addition to that she was having some increased palpitations in potential arrhythmias. Therefore, the azithromycin was stopped for safety reasons. Although she did feel better after stopping it. She is immunocompromised with significant hypogammaglobulinemia and therefore she needs to be on some prophylactic medication specially she is having some issues with cough right now chest congestion. Will go ahead and send a doxycycline which she tolerates. She will take it twice a day for a couple weeks and then decrease it to once a day. I which point we can consider keeping a prophylactic dose of 1 daily. She is currently requesting a a p.o. of her denial for her IVIG therapy for her significant hypogammaglobulinemia. We tested her pneumococcal titers which were significantly low and her IgG levels are also significantly low. The patient has had recurrent infections both upper and lower respiratory infections and she did requires antibiotics frequently. Will go ahead and request additional blood work right now and she will submit her p.o. to her insurance company so they can provide her the medicine that she needs. In the meantime she continues use oxygen. She does use [employer] for the [employer]. She has a concentrator at home and she has a smaller POC unit that she uses with activity. She should continue with the oxygen therapy as it has been affecting beneficial and will go ahead and make sure that [employer] has a proper paperwork for her to continue to use their services. 10/22/2024 the patient is here for a pulmonary follow-up visit. Overall she is doing better. Her laboratories that she recently had are significantly improved. Where her inflammation is been decreasing significantly. The patient has been under Benlysta and also has been on the IVIG. She has a lot of complaints about the infusion. IgG is a difficult medication to tolerate at times. She needs to have it administer extremely slowly. Will make sure that the infusion center is following the protocols to minimize adverse effects. She is already premedicated which she has helpful. In the meantime she will continue with the therapy. Will plan to check an IgG trough after her 3rd dose to make sure that levels are adequate. She continues with respiratory therapy with good effect. One issue with the blood work demonstrated that she had an increased hemoglobin consistent with polycythemia. We did have her undergo an overnight oximetry on room air while wearing the CPAP. And she actually did well but she spent only 4.5 minutes below 88%. Therefore, not too significant. But, in view of her polycythemia it will be prudent to use the oxygen if she has it which she does. She can use it at 2 L oxygen per minute via the CPAP. CPAP therapy has been affecting beneficial. She does use it for more than 4 hours a night. Will plan to follow-up in therefore months. Which time will plan to repeat her CT scan of the chest and assess her interstitial lung disease. If any issues arise prior to that she will call for an earlier assessment. 01/07/2025 the patient is here for a sick visit. She started developing worsening cough chest congestion and started also developing some hemoptysis. Mild in severity but was bright red blood. Then became a little darker. She has not seen as much blood today. The patient is not on any blood thinners. Denies any pleuritic chest pain. She did get a port and has been getting her IVIG through her port. She gets it now every 2 weeks because of her significant adverse effects. She seems to be tolerating that better and does being managed now by Hematology. The patient is also following closely with the carroting machine operator. She has been on chronic steroids. 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 Will go ahead and request blood work including a random cortisol level. On further questioning the patient has had blood clots in the past. Denies any chest pains and she is not taking any blood thinners right now. Denies any tachycardia and is not hypoxic. Therefore these symptoms are likely just from a lower respiratory infection so will go ahead and add an antibiotic, Augmentin to her regimen. If however her symptoms persist she can get blood work including a D-dimer so we can further consider the possibility of thromboembolic disease. 02/25/2025 the patient is here for pulmonary follow-up visit. The patient continues to have multiple complaints sitting chronic bronchitis chest congestion shortness of breath. In addition to that she complains of significant arthritic 80s and muscle discomfort and pain. She had been on Medrol for a prolonged period of time for or frequent dosages. Therefore adrenal insufficiency may be in the differential. I will have her check a cortisol level whenever able. Ideally in the morning. In the meantime the patient continues with the IVIG. She does have the port and this has been very effective for her. Blood pressure seems to be better now that she is taking a lower dose. We did review her CTA that she had back in January personally by me. Evidence of mosaic pattern and ground-glass opacities likely pulmonary vascular congestion though. It seems like she had increased cardiac size. Therefore diuresis was effective. She does benefit from further diuresis. She should not take the diuretics regularly although she should weigh herself as she has a scale at home and if she does gain couple positive 24 hours or 3 lb in 48 hours she should take a diuretic pill to minimize volume overload status. She will continue with respiratory inhalers I do believe that based on a chronic bronchitis and obstructive airway disease Daliresp will be very effective for and decreasing the chest congestion in the needs for steroids. Therefore she will start Daliresp 500 mcg dose. She will start every other day to tolerate the medicine better and then she can start taking it daily as tolerated. The patient follow-up in a couple months. If she has any issues prior to that she will call for an earlier assessment. 05/06/2025 the patient is here for pulmonary follow-up visit. She continues to struggle with all her elements. Significant arthritic 80s shortness of breath muscle discomfort muscle weakness. She is scheduled to see the general surgeon regarding a muscle biopsy. She continues to receive the IV IgE infusions and she seems to be tolerating those well through her Port-A-Cath. The patient continues to monitor closely her symptoms with the help of the carroting machine operator. And she is still on the Benlysta for that. From a respiratory status she seems to be doing a candidate respiratory regimen continues the oxygen with good effect. She has been having some difficulties today overall with the shortness of breath chest tightness and myalgias and arthralgias. Will give her a dose of Solu-Medrol at this time. She will need to follow-up with Rheumatology for further interventions. [facility] Medical History (Updated 05/06/25 @ 15:07 by Kyrie Bliss MD) Colitis Irritable bowel syndrome Multiple sclerosis Raynaud's disease Lower abdominal pain Abnormal finding on EKG MAURO treated with BiPAP Hypogammaglobulinemia Asthma Lupus Pneumonitis Pulmonary fibrosis Family History Maternal Aunt Brain abscess Bone cancer Maternal Aunt Lung cancer Melanoma Maternal Uncle Melanoma Bone cancer Lung cancer Mother Thyroid cancer Uterine cancer Social History Household Members: Spouse Housing: House Do you presently have visiting nurse or other home services: No Alcohol intake: current Alcohol intake frequency: does not drink Comment: pt refusing alarms Patient Tobacco Use Status: Former Tobacco user Tobacco use type: Cigarette Years Smoked: 20 Years e-Cigarette/Vaping Use: Never Used service: No Current occupational status: retired [employer] Const Denies chills, Denies fatigue, Denies fever(s), Denies weight gain and Denies weight loss Eyes Denies change in vision ENT Denies dizziness Card Denies chest pain, Denies leg edema, Denies lightheadedness, Denies palpitations, Reports dyspnea on exertion, Denies orthopnea and Denies other Resp Reports cough and Reports dyspnea on exertion GI Denies hematochezia and Denies change in stool character Musc Denies abnormal gait, Reports muscle weakness, Denies numbness, Denies radiating pain into limb and Denies tingling Skin/Breast Denies rash Neuro Denies abnormal gait, Denies dizziness, Denies numbness and Denies tingling Endo Denies fatigue and Denies palpitations Sheldon/Lymph Denies easy bleeding Physical Exam Vital Signs: Last Vital Signs Pulse 75 05/06/25 14:46 BP 128/67 05/06/25 14:46 Pulse Ox 98 05/06/25 14:46 Oxygen Delivery Method Room Air 05/06/25 14:46 BMI result Body Mass Index 37.1 Const General: comfortable Orientation/consciousness: patient oriented x3 HEENT Head: Yes normocephalic Neck Neck: Yes supple Chest Chest palpation & inspection: normal inspection of the chest Resp Effort & Inspection: normal respiratory effort Auscultation: no crackles and diminished lung sounds Cardio Heart sounds: S1 normal heart sound present and S2 normal heart sound present GI Palpation (GI): Soft to palpation Skin General skin exam: no rashes or lesions noted Neuro General: patient oriented x3 Extrem General: Yes edema Office Meds methylprednisolone sod suc(PF) 125 mg/2 mL solution for injection Performing Provider: Kyrie Bliss MD Performing Location: [facility] [place] Pulmonology Services Administered by: Madison Berkowitz LPN on 05/06/25 15:35 Dose Route Admin Location Dispensed Lot Number Expiration Date NDC Shipping Weigher 125 mg IM Left buttock 1 ea [id number] 09/15/26 6833-6501-79 [employer] Total Dispensed Waste 1 ea 0 % Assessment & Plan Assessment & Plan (1) Pulmonary fibrosis: Code(s): J84.10 - Pulmonary fibrosis, unspecified Category: Medical (2) Pneumonitis: Comment: better Code(s): J98.4 - Other disorders of lung Category: Medical (3) Lupus: Code(s): M32.9 - Systemic lupus erythematosus, unspecified Category: Medical (4) Asthma: Code(s): J45.909 - Unspecified asthma, uncomplicated Category: Medical Qualifiers: Asthma complication type: uncomplicated Asthma persistence: intermittent Asthma severity: mild Qualified Code(s): J45.20 - Mild intermittent asthma, uncomplicated (5) Hypogammaglobulinemia: Code(s): D80.1 - Nonfamilial hypogammaglobulinemia Category: Medical (6) MAURO treated with BiPAP: Code(s): G47.33 - Obstructive sleep apnea (adult) (pediatric) Category: Medical (7) Hemoptysis: Code(s): R04.2 - Hemoptysis Category: Medical (8) Colitis: Code(s): K52.9 - Noninfective gastroenteritis and colitis, unspecified Category: Medical Plan Solumedrol 125mg IM x 1 decrease Daliresp 250mcg every other day continue Wixela, increase 500/50 off medrol continue lasix, monitor weight daily CAROL as needed continue singulair continue IVIG via port as per Hematology continue BIPAP Continue oxygen therapy. Patient uses imaging. 2 L pulse with activity and 2 L at nighttime with PAP therapy F/U 2-3 months Orders: Orders AMB Methylprednisolone Sod Succ Injection Today J45.20 - Mild intermittent asthma, uncomplicated, J84.10 - Pulmonary fibrosis, unspecified Referrals Gastroenterology Referral K52.9 - Noninfective gastroenteritis and colitis, unspecified Medications: New roflumilast (Daliresp) 250 mcg PO DAILY 30 tabs 11RF 30 days J44.9 - Chronic obstructive pulmonary disease, unspecified umeclidinium 62.5 mcg/actuation (Incruse Ellipta) 1 inh inhalation DAILY 30 ea 11RF 30 days J45.909 - Unspecified asthma, uncomplicated Coding Level of Care Code Est Pt Level 4 (73920) Complex EM visit Add On G2211 Diagnoses Pulmonary fibrosis J84.10 Pneumonitis J98.4 Lupus M32.9 Mild intermittent asthma without complication J45.20 Asthma complication type: uncomplicated Asthma persistence: intermittent Asthma severity: mild Hypogammaglobulinemia D80.1 MAURO treated with BiPAP G47.33 Hemoptysis R04.2 Colitis K52.9 Time Spent (min) 18
--- OUTSIDE RECORDS SUMMARY | 2025-05-06 14:49 | XMS_ITS | Clinical Summary ---
Author Organization Located Within [facility] Address [address] [facility] [address] [place] [phone] Phone Care Team Providers Care Third Rigger Name Role Phone Aleksandr Ortiz MD Primary Care Provider Medications fluticasone propion/salmeterol (ADVAIR HFA INHL) Advair HFA Take No date recorded No form recorded No frequency recorded No route recorded No set duration recorded No set duration amount recorded active No dosage strength recorded No dosage strength units of measure recorded Active albuterol sulfate (PROAIR RESPICLICK) 90 mcg/actuation AePB albuterol sulfate Take No date recorded No form recorded No frequency recorded No route recorded No set duration recorded No set duration amount recorded active No dosage strength recorded No dosage strength units of measure recorded Active fluticasone furoate 50 mcg/actuation DsDv 1 puff. A ctive montelukast (SINGULAIR) 10 mg tablet montelukast Take No date recorded No form recorded No frequency recorded No route recorded No set duration recorded No set duration amount recorded active No dosage strength recorded No dosage strength units of measure recorded Active omeprazole (PRILOSEC) 20 MG capsule Take 20 mg by mouth daily. 01/31/20 22 Active amLODIPine (NORVASC) 10 MG tablet 03/30/20 23 Active fluticasone propion-salmeteroL (ADVAIR HFA) 230-21 mcg/actuation inhaler 2 puffs Inhalation Twice a day Active fexofenadine (RAUL) 180 MG tablet Take 180 mg by mouth. 01/31/20 22 Active fluticasone propion-salmeteroL (WIXELA INHUB) 250-50 mcg/dose DISKUS 0 Refills, Maintenance, 06/12/22 11:27:00 EDT, Partial fill upon patient request if the prescription is for a schedule II opioid drug. 07/17/19 98 Active hydrOXYchloroQUINE (PLAQUENIL) 200 mg tablet 01/17/20 23 Active SYNTHROID 200 mcg tablet 03/08/20 23 Active losartan (COZAAR) 25 MG tablet 03/08/20 23 Active metoprolol tartrate (LOPRESSOR) 25 MG tablet TAKE ONE TABLET BY MOUTH TWICE A DAY NEEDED FOR HEART RATE/PALPITATION S DIRECTED 03/18/20 23 Active nitroglycerin (NITROSTAT) 0.[address] 1 TABLET UNDER THE TONGUE NEEDED FOR CHEST PAIN EVERY 5 MINUTES UP TO 3 TIMES Active ondansetron (ZOFRAN-ODT) 4 MG disintegrating tablet TAKE ONE TO TWO TABLETS BY MOUTH ONCE A DAY NEEDED FOR NAUSEA Active OZEMPIC 2 mg/dose (8 mg/3 mL) subcutaneous injection pen 03/30/20 23 Active sodium chloride 3 % nebulizer solution Take 4 mL (120 mg total) by nebulization 2 (two) times a day. 240 mL 12 04/23/20 23 Active Active Problems Problem Noted Date Diagnosed Date Allergic rhinitis 04/23/2023 04/23/2023 Cerebral aneurysm 04/23/2023 04/23/2023 Chondrocalcinosis due to pyrophosphate crystals 04/23/2023 04/23/2023 Class 2 obesity 04/23/2023 04/23/2023 DDD (degenerative disc disease), cervical 202204/23/2023 Hypothyroidism 04/23/2023 04/23/2023 Lyme disease 04/23/2023 04/23/2023 Osteoporosis 04/16/2022 04/23/2023 Hyperlipidemia 10/17/2020 04/23/2023 Acute relapsing multiple sclerosis 04/16/2013 04/23/2023 Essential hypertension 04/16/2010 3 Type 2 diabetes mellitus without complication 04/23/2023 Asthma 04/16/1997 04/23/2023 Nelia's thyroiditis 04/16/1987 04/23/20 23 Diverticulosis of both small and large intestine without perforation or abscess 04/16/1973 04/23/2023 Systemic lupus erythematosus 04/16/197004/2023 Social History Tobacco Use Types Packs/Day Years Used Date Smoking Tobacco: Never Tobacco Cessation:Counseling Given: Not Answered Education Answer Date Recorded Are you interested in more education? Not on mallika e 01/10/2023 Are you concerned about learning? Not on file 01/10/2023 No 01/10/2023 No 01/10/2023 Digital Access Answer Date Recorded No 02/11/2023 No 02/11/2023 Reliable internet access at home? Not on file 02/11/2023 Device with a working camera? Not on file Comments Unknown Sex and Gender Information Value Date Recorded Sex Assigned at Choose not to disclose 04/2024 10:32 AM EDT Legal Sex Female 7:16 PM EST Gender Identity Female 12/24/2022 3:45 PM EDT Sexual Orientation Choose not to disclose 2023 10:32 AM EDT Last Filed Vital Signs Vital Sign Reading Time Taken Comments Blood Pressure 134/82 04/23/2023 1:40 PM EDT Pulse 78 04/23/2023 1:40 PM EDT Temperature 35.9 C (96.7 F) 04/23/2023 1:40 PM EDT Respiratory Rate 16 04/23/2023 1:40 PM EDT Oxygen Saturation 97% 04/23/2023 1:40 PM EDT Inhaled Oxygen Concentration - - Weight 105.2 kg (232 lb) 04/23/2023 1:40 PM EDT Height 167.6 cm (5' 6 ) 04/23/2023 1:40 PM EDT Body Mass Index 37.45 04/23/2023 1:40 PM EDT Plan of Treatment Health Maintenance Due Date Last Done Comments Adult Td,Tdap Booster 1953 CREATININE LEVEL 1953 HEMOGLOBIN A1C 1953 POTASSIUM LEVEL 1953 TSH LEVEL 1953 DEPRESSION SCREENING 1965 HEPATITIS C SCREENING 1971 LIPID PANEL 1971 PNEUMOCOCCAL VACCINES (50+ y ears) (1 of 2 - PCV) 1972 SMOKING STATUS SCREENING (On ce After 26 Yrs) 1979 MAMMOGRAM 1993 COLOGUARD 1998 COLONOSCOPY 1998 COLORECTAL CANCER SCREENING 1998 FIT TEST 1998 FOBT 1998 SIGMOIDOSCOPY 1998 VIRTUAL COLONOSCOPY 1998 ZOSTER VACCINES (1 of 2) 2003 RSV VACCINE (1 - Risk 60-74 years 1-dose series) 2013 OSTEOPOROSIS SCREENING INITI AL (ONE-TIME) 2018 DIABETIC EYE EXAM 04/23/2023 BLOOD PRESSURE 10/24/2023 04/23/2023 COVID-19 VACCINE (1 - 2023-2 5 season) 2024 HEPATITIS A VACCINES Aged Out No long er eligible based on patient's age to complete this topic HIB VACCINES Aged Out No longer eligi ble based on patient's age to complete this topic MENINGOCOCCAL VACCINES (ACWY) Aged Out No longer eligible based on patient's age to complete this topic MENINGOCOCCAL VACCINES (B) Aged Out N o longer eligible based on patient's age to complete this topic Medical Devices Not on file Insurance MEDICARE PART A & B [facility] MEDICARE PART A & B MEDICARE PART A & B [facility] MEDICARE PART A & B [facility] MEDICARE [facility] A & B [facility] MEDICARE PART A & B [facility] Care Teams Third Rigger Relationship Specialty Start Date End Date Aleksandr Ortiz MD [address] [place] [id number] PCP - General Internal Medicine 12/24/22 Additional Source Comments The information contained in this document represents components of the legal health record. It is not the complete legal health record.Located Within [facility]
--- OUTSIDE RECORDS SUMMARY | 2025-05-06 14:49 | XMS_ITS | Patient Health Record ---
[facility] Address [address] [facility] [place] [address] Care Team Providers Care Manager Supply Chain Name Role Phone Yashira THOMAS, Shawna Primary Care Provider Steph Dotson Unavailable [phone] Allergies Allergen (clinical drug ingredient) Drug/Non Drug Allergy documented on EMR Reaction Allergy Type Onset Date Status Adhesive Unknown Allergy Active Shellfish (FN) Shellfish-derived Products Unknown Drug Allergy Active Substance with 5-yzfafjo-8-methylgluta ryl-coenzyme A reductase inhibitor mechanism of action [...] Problem Acquired hammer toe of right foot (6813221720345861 ) Other hammer toe(s) (acquired), right foot (M20.41) Active confirmed Problem Acquired hammer toe of left foot (7571879073282094 ) Other hammer toe(s) (acquired), left foot (M20.42) Active confirmed Problem Polyneuropathy due to type 2 diabetes mellitus (109961700) Type 2 diabetes mellitus with diabetic polyneuropathy (E11.42) Active confirmed Plan Of Treatment Pending Test Test Name Order Date [id number] NAIL, 6 OR MORE 09/27/2020 [id number] NAIL, 1-5 11/29/2020 [id number] Plate 09/27/2020 [id number] SKIN LESIONS, OVER 4 09/27/19 21 [id number] SKIN LESIONS, OVER 4 11/30/19 21 [id number] DYSTROPHIC NAILS ANY # Insurance Providers Payer Name Payer Address Payer Phone Subscriber Number Group Number Insured Name Patient Relationship to Insured Coverage Start Date Coverage End Date [employer] [address] [place] [address] [phone] [id number] Naheed Luna Self - patient is the insured [facility] [address] [place] [address] [phone] [id number] Naheed Luna Self - patient is the [...] Surgery Date(Month/Year) tonsillectomy and adenoidectomy 2 D&C 8836-9216 hysterectomy 1978 oopherectomy 1978 appendectomy 1978 cholecystectomy 1979 disc surgeryC-5,C-6,SI,L5 S-1 Vplate ant erior 2002,2006,2008 carpal tunnel surgery 2003,2005 Hospitalization History Reason Date(Month/Year) [facility] hypokalemia, hypo magnesemia, thyroi d toxicosis 09/2020
--- OUTSIDE RECORDS SUMMARY | 2025-05-06 14:50 | XMS_ITS | Patient Health Record ---
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 Builder Name Role Phone SHARAN JONES Unavailable [phone] BRENDARED GIL Unavailable [phone] Allergies Allergen (clinical drug ingredient) Drug/Non Drug Allergy documented on EMR Reaction Allergy Type Onset Date Status Substance with 7-jbxyosb-4-methylgl utaryl-coenzyme A reductase inhibitor mechanism of action (substance) statins (uncoded) Unknown Allergy Active denosumab Prolia stomach upset Drug Allergy Act jere azithromycin Azithromycin Unknown Drug Allergy A ctive ciprofloxacin Ciprofloxacin Unknown Drug Allergy Active Results Component Value Reference Range Notes TSH Rfx on Abnormal to Free [id number] Reviewed date:02/13/2025 02:15:55 PM Interpretation: Performing Lab:[facility] [place], [address] [facility], Phone - [phone], Director - MDJodry Notes/Report: TSH 6.190 0.450-4.500 uIU/mL T4,Free (Direct) 1.56 0.82-1.77 ng/dL Comp. Metabolic Panel (14)-3 55436 Reviewed date:02/13/2025 02:15:55 PM Interpretation: [facility]forming [facility] [place], [address] [facility], Phone - [phone], Director - MDJodry Notes/Report: Glucose 117 70-99 [...] 0-40 IU/L ALT (SGPT) 20 0-32 IU/L Lipid Panel-[id number] Reviewed date:02/13/2025 02:15:55 PM Interpretation: Performing [facility] [place], [address] [place] [address], [place], Phone - [phone], Director - Lalo Notes/Report: Cholesterol, Total 191 100-199 mg/dL Triglycerides 279 0-149 mg/dL HDL Cholesterol 36 >39 mg/dL VLDL Cholesterol Stanford 48 5-40 mg/dL LDL Chol Calc (NIH) 107 0-99 mg/dL Vitamin D, 00-[id number] Reviewed date:02/13/2025 02:15:55 PM Interpretation: Performing Lab:[facility] [place], [address] [place] [address], [place], Phone - [phone], Director - Lalo Notes/Report: Vitamin D, 25-Hydroxy 95.2 30.0-100.0 ng/mL Vitamin D deficiency has been defined by the Reading of Medicine and an Endocrine Society practice guideline as a level of serum 25-OH vitamin D less than 20 ng/mL (1,2). The Endocrine Society went on to further define vitamin D insufficiency as a level between 21 and 29 ng/mL (2). 1. IOM ([place] of Medicine). 2010. Dietary reference intakes for calcium and D. [place]: The National Academies Press. 2. Rigoberto MF, Russel NC, Lionel-Kai SIERRA, et al. Evaluation, treatment, and prevention of vitamin D deficiency: an Endocrine Society clinical practice guideline. JCEM. 2010; 96(7):1911-30. CBC With Differential/Platel et-[id number] Reviewed date:02/13/2025 02:15:55 PM Interpretation: Performing Lab:[facility] [place], [facility], [place], Phone - [phone], Director - MDJodry Notes/Report: WBC 10.4 3.4-10.8 x10E3/uL RBC 4.90 [...] Immature Grans (Abs) 0.1 0.0-0.1 x10E3/uL Urinalysis, Complete-[id number] Reviewed date:02/13/2025 02:15:55 PM Interpretation: Performing Lab:[facility] [place], [address] [place] [address], Phone - [phone], Director - INJodry Notes/Report: Specific Mason 1.025 1.005-1.030 pH 5.0 5.0-7.5 Urine-Color Yellow [...] Oxalate N/A Bacteria None seen None seen/Few Hemoglobin [id number] Reviewed date:02/13/2025 02:15:55 PM Interpretation: Performing Lab:[facility] [address], Phone - [phone], Director - Lalo Notes/Report: Hemoglobin A1c 7.1 4.8-5.6 % . Prediabetes: 5.7 - 6.4 Diabetes: >6.4 Glycemic control for adults with diabetes: <7.0 Thyroxine (T4)-[id number] Reviewed date:02/13/2025 02:15:55 PM Interpretation: Performing Lab:[facility] [place], [address] [place] [address], Phone - [phone], Director - Lalo Notes/Report: Thyroxine (T4) 9.4 4.5-12.0 ug/dL TSH-[id number] Reviewed date:10/21/2024 08:32:30 AM Interpretation: Performing Lab:[facility] [place], [address] [place] [address], Phone - [phone], Director Jake May Notes/Report: TSH 2.810 0.450-4.500 uIU/mL Hemoglobin [id number] Reviewed date:10/21/2024 08:32:30 AM Interpretation: Performing Lab:[facility] [address], Phone - [phone], Director - Lalo Notes/Report: Hemoglobin A1c 8.9 4.8-5.6 % . Prediabetes: 5.7 - 6.4 Diabetes: >6.4 Glycemic control for adults with diabetes: <7.0 Thyroxine (T4)-110251 Reviewed date:10/21/2024 08:32:30 AM Interpretation: Performing Lab:[facility] [place], Phone - [phone], Director - Lalo Notes/Report: Thyroxine (T4) 11.2 4.5-12.0 ug/dL TSH-[id number] Reviewed date:09/30/2024 08:20:48 AM Interpretation: Performing Lab:[facility] [address] [place] [address], Phone - [phone], Director Jake May Notes/Report: TSH 6.050 0.450-4.500 uIU/mL Hemoglobin [id number] Reviewed date:09/30/2024 08:20:48 AM Interpretation: Performing Lab:[facility] [place], [address] [facility], [place], Phone - [phone], Director - Lalo Notes/Report: Hemoglobin A1c 9.1 4.8-5.6 % . Prediabetes: 5.7 - 6.4 Diabetes: >6.4 Glycemic control for adults with diabetes: <7.0 Thyroxine (T4)-593760 Reviewed date:09/30/2024 08:20:48 AM Interpretation: Performing Lab:[facility] [place], [address] [facility], [place], Phone - [phone], Director - Lalo Notes/Report: Thyroxine (T4) 10.6 4.5-12.0 ug/dL Reason For Referral Reason [facility] Diagnosis 1 Chronic stasis derma titis (I87.2) Referral Organization [facility] [address] Referring Provider First Name RED Referring Provider Last Name BECKIE Referring Provider Speciality Internal edicine Referred Provider undefined Referred Provider Specialty Vascular Joao meaghan General Notes Pam Valadez 08:57:33 AM > Referral form faxed to [phone]. Clinical Notes Maria Guadalupe Robert 02:56:33 PM >, Maria Guadalupe Robert 01/19/2025 02:09:58 PM > The patient was seen on 01/07 and have a follow up appointment on 03/10 Referral Priority Routine Reason echocardiogram Diagnosis 1 Cardiomegaly (I51.7) Referral Organization [facility] [address] Referring Provider First Name SHARAN Referring Provider Last Name KAREN Referring Provider Speciality Internal edicine Referred Provider Specialty Cardiology General Notes Cheyanne Delgado 02/25 02:51:53 PM >faxed to the [facility] cardiology at fax #[phone], phone # [phone] Clinical Notes Cheyanne Delgado 02/25 03:00:46 PM [...] a day; Duration: 90 days 02/16/2025 Active Journavx 50 MG 50mg Orally every [...] Probiotic - as directed Orally Unknown Nystatin 072532 UNIT/GM 1 application Externally Twice a day; Duration: 30 days 08/21/2023 Unknown traMADol HCl 50 MG 1 tablet as needed f or pain Orally every 6 hours; Duration: 30 days 02/16/2025 Active Synthroid 175 MCG TAKE 1 TABLET EVERY MORNINGON AN EMPTY STOMACH; Duration: 90 Active Ondansetron HCl 4 MG 1 tablet [...] other day; Duration: 90 days 09/03/2024 Unknown Mounjaro 5 MG/0.5ML INJECT 5 MG [...] Status W/U Status Risk Notes Problem Hypothyroidism (66816261) Hypothyroidism, unspecified (E03.9) Active confirmed Problem Obesity (969012432) Other obesity (E66.8) Active confirmed Problem Mixed hyperlipidemia (671962719) Mixed hyperlipidemia (E78.2) Active confirmed Problem Hyperlipidemia (37436739) Hyperlipidemia, unspecified (E78.5) Active confirmed Problem Chronic pain (12185536) Other chronic pain (G89.29) Active confirmed Problem Chronic pain syndrome (464082224) Chronic pain syndrome (G89.4) Active confirmed Problem Cardiomegaly (3084364) Cardiomegaly (I51.7) Active confirmed Problem Systemic lupus erythematosus (88368819) Systemic lupus erythematosus, unspecified (M32.9) Active confirmed Problem Age-related osteoporosis (142144017) Age-related osteoporosis without current pathological fracture (M81.0) Active confirmed Problem Lipid screening (517307263) Encounter for screening for lipoid disorders (Z13.220) Active confirmed Problem Body mass index 35.00 to 39.99 (824020211048843) Body mass index (BMI) 38.0-38.9, adult (Z68.38) Active confirmed Problem Body mass index 35.00 to 39.99 (565247682822258) Body mass index (BMI) 39.0-39.9, adult (Z68.39) Active confirmed Problem Chronic idiopathic constipation (90480894) Chronic idiopathic constipation (K59.04) Active confirmed Problem Morbid obesity (075310551) Morbid obesity (E66.01) Active confirmed Problem Disorder due to type 2 diabetes mellitus (153459510) Type 2 diabetes mellitus with complication, unspecified whether terminologist insulin use (E11.8) Active confirmed Problem Acquired hypothyroidism (425418649) Acquired hypothyroidism (E03.9) Active confirmed Problem Adult health examination (962592533) Adult general medical exam (Z00.00) Active confirmed Problem Vitamin D deficiency (88403198) Vitamin D deficiency (E55.9) Active confirmed Problem Essential hypertension (51668501) Hypertension, unspecified type (I10) Active confirmed Problem Type II diabetes mellitus without complication (985038637) Type 2 diabetes mellitus without complication, without long-term current use of insulin (E11.9) Active confirmed Problem Obesity (343377579) Obesity (BMI 30-39.9) (E66.9) Active confirmed Problem Progressive fibrosing interstitial lung disease (disorder) (476914171736280) Interstitial lung disease with progressive fibrotic phenotype in diseases classified elsewhere (J84.170) Active confirmed Problem Obese class II (953806996939819) BMI 35.0-35.9,adult (Z68.35) Active confirmed Problem Pulmonary fibrosis (02327764) Pulmonary fibrosis (J84.10) Active confirmed Problem Body mass index 40+ - severely obese (166307853) Body mass index [BMI] 40.0-44.9, adult (Z68.41) Active confirmed Problem Chronic venous insufficiency (18535665) Chronic venous insufficiency (I87.2) Active confirmed Problem Avitaminosis D (06038790) Avitaminosis D (E55.9) Active confirmed Problem Abnormal metabolic state due to diabetes mellitus (811704028) Abnormal metabolic state due to diabetes mellitus (E11.9) Active confirmed Problem Chronic interstitial cystitis (656982334) Interstitial cystitis (N30.10) Active confirmed Problem Other osteoporosis with current pathological fracture with routine healing, subsequent encounter (M80.80XD) Active confirmed Problem Peripheral venous insufficiency (96168710) Chronic stasis dermatitis (I87.2) Active confirmed Vital Signs Heart Rate 82 /min 02/15/2025 Oximetry 98 % 02/15/2025 Blood pressure diastolic 86 mm Hg 02/15/2025 Height 66 in 02/15/2025 Blood pressure systolic 128 mm Hg 02/15/2025 Weight 246 lbs 02/15/2025 BMI 39.7 kg/m2 02/15/2025 Encounters Encounter Location Date Provider Diagnosis [facility] [address] [place] [address] 07/08/2024 TALDHEERAJ JONES Chronic pain syndrom e G89.4 ; Type 2 diabetes mellitus with complication, unspecified whether long-term insulin use E11.8 ; Hyperlipidemia, unspecified E78.5 ; Age-related osteoporosis without current pathological fracture M81.0 and Lupus M32.9 [facility] [address] [address] 09/15/2024 [place] Atypical chest pain R07.89 ; Bilateral lower extremity edema R60.0 ; Chronic venous insufficiency I87.2 ; Acquired hypothyroidism E03.9 ; Abnormal metabolic state due to diabetes mellitus E11.9 and Hypothyroidism, unspecified E03.9 [facility] [address] [address] 10/06/2024 [place] Atypical chest pain R07.89 ; Acquired hypothyroidism E03.9 ; Bilateral lower extremity edema R60.0 ; Chronic venous insufficiency I87.2 ; Abnormal metabolic state due to diabetes mellitus E11.9 ; Pulmonary fibrosis J84.10 and Hypothyroidism, unspecified E03.9 [facility] [address] [address] 12/11/2024 [place] Atypical chest pain R07.89 ; Acquired hypothyroidism E03.9 ; Bilateral lower extremity edema R60.0 ; Chronic venous insufficiency I87.2 ; Abnormal metabolic state due to diabetes mellitus E11.9 ; Pulmonary fibrosis J84.10 ; Hypothyroidism, unspecified E03.9 and Chronic pain syndrome G89.4 [facility] [address] 02/15/2025 [place] Annual physical exam Z00.00 [...] Mild cardiomegaly I51.7 [facility] [address] [address] 07/08/2024 TALAL JONES [facility] [address] 07/08/2024 TALAL JONES [facility] [address] [place] [address] 07/10/2024 TALAL JONES Chronic pain syndrom e G89.[address] [facility] [address] [place] [address] 07/28/2024 TALAL JONES [facility] [address] [facility] [address] [address] 08/03/2024 TALAL JONES [facility] [address] [place] [address] 09/01/2024 TALAL JONES [facility] [address] [place] [address] 09/14/2024 [place] [facility] [address] [address] 09/17/2024 [place] Atypical chest pain R07.89 [facility] [address] 09/18/2024 [place] Atypical chest pain R07.[address] [facility] [address] [place] [address] 09/28/2024 TALAL JONES [facility] [address] [address] 10/14/2024 [place] [facility] [address] [address] 10/15/2024 [place] [facility] [address] [address] 10/15/2024 [place] [facility] [address] [address] 10/22/2024 [place] [facility] [address] [address] 12/24/2024 [place] [facility] [address] [address] 12/24/2024 [place] [facility] [address] [address] 01/07/2025 [place] [facility] [address] [address] 02/25/2025 [place] Cardiomegaly I51.7 [facility] [address] [address] 03/31/2025 TALAL JONES [facility] [address] [address] 04/30/2025 TALAL JONES [facility] [address] [facility] [address] [address] 09/18/2024 TALAL JONES [facility] [address] [address] 02/16/2025 [place] Assessments Encounter Date Diagnosis (ICD Code) Assessment Notes Treatment Notes Treatment Clinical Notes Section Notes 07/08/2024 Chronic pain syndrome (ICD-10 - G89.4) [...] of them. 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 Please follow-up on oncology notes consider repeat EKGs regularly to monitor QT intervals blood work and follow-up advised 07/08/2024 Type 2 diabetes mellitus with complication, unspecified whether terminologist insulin use (ICD-10 - E11.8) Patient [...] of them. 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 and might need to increase dose of [...] software and direct typing Please excuse inadvertent maple products supervisor or typing errors, or uncorrected word substitutions Although every attempt has been made by the provider to proofread this document, occasional misspellings and typographical errors may still be present Due to the previous pandemic, and the use of personal protective equipment (PPE) This may decrease voice recognition accuracy Inadvertent maple products supervisor errors may occur 09/15/2024 Bilateral lower extremity [...] software and direct typing Please excuse inadvertent maple products supervisor or typing errors, or uncorrected word substitutions Although every attempt has been made by the provider to proofread this document, occasional misspellings and typographical errors may still be present Due to the previous pandemic, and the use of personal protective equipment (PPE) This may decrease voice recognition accuracy Inadvertent maple products supervisor errors may occur 09/17/2024 Atypical chest pain [...] software and direct typing Please excuse inadvertent maple products supervisor or typing errors, or uncorrected word substitutions Although every attempt has been made by the provider to proofread this document, occasional misspellings and typographical errors may still be present Due to the previous pandemic, and the use of personal protective equipment (PPE) This may decrease voice recognition accuracy Inadvertent maple products supervisor errors may occur 10/06/2024 Atypical chest pain [...] software and direct typing Please excuse inadvertent maple products supervisor or typing errors, or uncorrected word substitutions Although every attempt has been made by the provider to proofread this document, occasional misspellings and typographical errors may still be present Due to the previous pandemic, and the use of personal protective equipment (PPE) This may decrease voice recognition accuracy Inadvertent maple products supervisor errors may occur 12/11/2024 Atypical chest pain [...] software and direct typing Please excuse inadvertent maple products supervisor or typing errors, or uncorrected word substitutions Although every attempt has been made by the provider to proofread this document, occasional misspellings and typographical errors may still be present Due to the previous pandemic, and the use of personal protective equipment (PPE) This may decrease voice recognition accuracy Inadvertent maple products supervisor errors may occur 02/15/2025 Encounter for screening [...] software and direct typing Please excuse inadvertent maple products supervisor or typing errors, or uncorrected word substitutions Although every attempt has been made by the provider to proofread this document, occasional misspellings and typographical errors may still be present Due to the previous pandemic, and the use of personal protective equipment (PPE) This may decrease voice recognition accuracy Inadvertent maple products supervisor errors may occur 02/15/2025 Annual physical exam [...] software and direct typing Please excuse inadvertent maple products supervisor or typing errors, or uncorrected word substitutions Although every attempt has been made by the provider to proofread this document, occasional misspellings and typographical errors may still be present Due to the previous pandemic, and the use of personal protective equipment (PPE) This may decrease voice recognition accuracy Inadvertent maple products supervisor errors may occur 02/25/2025 Cardiomegaly (ICD-10 - I51.7) 02/15/2025 Encounter for screening for other disorder [...] software and direct typing Please excuse inadvertent maple products supervisor or typing errors, or uncorrected word substitutions Although every attempt has been made by the provider to proofread this document, occasional misspellings and typographical errors may still be present Due to the previous pandemic, and the use of personal protective equipment (PPE) This may decrease voice recognition accuracy Inadvertent maple products supervisor errors may occur 12/11/2024 Bilateral lower extremity [...] software and direct typing Please excuse inadvertent maple products supervisor or typing errors, or uncorrected word substitutions Although every attempt has been made by the provider to proofread this document, occasional misspellings and typographical errors may still be present Due to the previous pandemic, and the use of personal protective equipment (PPE) This may decrease voice recognition accuracy Inadvertent maple products supervisor errors may occur 12/11/2024 Acquired hypothyroidism (ICD-10 [...] software and direct typing Please excuse inadvertent maple products supervisor or typing errors, or uncorrected word substitutions Although every attempt has been made by the provider to proofread this document, occasional misspellings and typographical errors may still be present Due to the previous pandemic, and the use of personal protective equipment (PPE) This may decrease voice recognition accuracy Inadvertent maple products supervisor errors may occur 10/06/2024 Bilateral lower extremity [...] software and direct typing Please excuse inadvertent maple products supervisor or typing errors, or uncorrected word substitutions Although every attempt has been made by the provider to proofread this document, occasional misspellings and typographical errors may still be present Due to the previous pandemic, and the use of personal protective equipment (PPE) This may decrease voice recognition accuracy Inadvertent maple products supervisor errors may occur 09/15/2024 Chronic venous insufficiency [...] software and direct typing Please excuse inadvertent maple products supervisor or typing errors, or uncorrected word substitutions Although every attempt has been made by the provider to proofread this document, occasional misspellings and typographical errors may still be present Due to the previous pandemic, and the use of personal protective equipment (PPE) This may decrease voice recognition accuracy Inadvertent maple products supervisor errors may occur 07/08/2024 Hyperlipidemia, unspecified (ICD-10 [...] of them. 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 Please follow-up on oncology notes consider repeat EKGs regularly to monitor QT intervals blood work and follow-up advised 07/08/2024 Age-related osteoporosis without current pathological fracture [...] of them. 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 Please follow-up on oncology notes consider repeat EKGs regularly to monitor QT intervals blood work and follow-up advised 10/06/2024 Chronic venous insufficiency (ICD-10 - I87.2) [...] software and direct typing Please excuse inadvertent maple products supervisor or typing errors, or uncorrected word substitutions Although every attempt has been made by the provider to proofread this document, occasional misspellings and typographical errors may still be present Due to the previous pandemic, and the use of personal protective equipment (PPE) This may decrease voice recognition accuracy Inadvertent maple products supervisor errors may occur 09/15/2024 Acquired hypothyroidism (ICD-10 [...] software and direct typing Please excuse inadvertent maple products supervisor or typing errors, or uncorrected word substitutions Although every attempt has been made by the provider to proofread this document, occasional misspellings and typographical errors may still be present Due to the previous pandemic, and the use of personal protective equipment (PPE) This may decrease voice recognition accuracy Inadvertent maple products supervisor errors may occur 12/11/2024 Chronic venous insufficiency [...] software and direct typing Please excuse inadvertent maple products supervisor or typing errors, or uncorrected word substitutions Although every attempt has been made by the provider to proofread this document, occasional misspellings and typographical errors may still be present Due to the previous pandemic, and the use of personal protective equipment (PPE) This may decrease voice recognition accuracy Inadvertent maple products supervisor errors may occur 02/15/2025 Advanced directives, counseling/discuss [...] software and direct typing Please excuse inadvertent maple products supervisor or typing errors, or uncorrected word substitutions Although every attempt has been made by the provider to proofread this document, occasional misspellings and typographical errors may still be present Due to the previous pandemic, and the use of personal protective equipment (PPE) This may decrease voice recognition accuracy Inadvertent maple products supervisor errors may occur 12/11/2024 Abnormal metabolic state [...] software and direct typing Please excuse inadvertent maple products supervisor or typing errors, or uncorrected word substitutions Although every attempt has been made by the provider to proofread this document, occasional misspellings and typographical errors may still be present Due to the previous pandemic, and the use of personal protective equipment (PPE) This may decrease voice recognition accuracy Inadvertent maple products supervisor errors may occur 02/15/2025 Acquired hypothyroidism (ICD-10 - E03.9) Acute [...] software and direct typing Please excuse inadvertent maple products supervisor or typing errors, or uncorrected word substitutions Although every attempt has been made by the provider to proofread this document, occasional misspellings and typographical errors may still be present Due to the previous pandemic, and the use of personal protective equipment (PPE) This may decrease voice recognition accuracy Inadvertent maple products supervisor errors may occur 10/06/2024 Abnormal metabolic state [...] software and direct typing Please excuse inadvertent maple products supervisor or typing errors, or uncorrected word substitutions Although every attempt has been made by the provider to proofread this document, occasional misspellings and typographical errors may still be present Due to the previous pandemic, and the use of personal protective equipment (PPE) This may decrease voice recognition accuracy Inadvertent maple products supervisor errors may occur 07/08/2024 Lupus (ICD-10 - [...] of them. 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 Please follow-up on oncology notes consider repeat EKGs regularly to monitor QT intervals blood work and follow-up advised 12/11/2024 Pulmonary fibrosis (ICD-10 - J84.10) Acute [...] software and direct typing Please excuse inadvertent maple products supervisor or typing errors, or uncorrected word substitutions Although every attempt has been made by the provider to proofread this document, occasional misspellings and typographical errors may still be present Due to the previous pandemic, and the use of personal protective equipment (PPE) This may decrease voice recognition accuracy Inadvertent maple products supervisor errors may occur 09/15/2024 Abnormal metabolic state [...] software and direct typing Please excuse inadvertent maple products supervisor or typing errors, or uncorrected word substitutions Although every attempt has been made by the provider to proofread this document, occasional misspellings and typographical errors may still be present Due to the previous pandemic, and the use of personal protective equipment (PPE) This may decrease voice recognition accuracy Inadvertent maple products supervisor errors may occur 10/06/2024 Pulmonary fibrosis (ICD-10 [...] software and direct typing Please excuse inadvertent maple products supervisor or typing errors, or uncorrected word substitutions Although every attempt has been made by the provider to proofread this document, occasional misspellings and typographical errors may still be present Due to the previous pandemic, and the use of personal protective equipment (PPE) This may decrease voice recognition accuracy Inadvertent maple products supervisor errors may occur 02/15/2025 Bilateral lower extremity [...] software and direct typing Please excuse inadvertent maple products supervisor or typing errors, or uncorrected word substitutions Although every attempt has been made by the provider to proofread this document, occasional misspellings and typographical errors may still be present Due to the previous pandemic, and the use of personal protective equipment (PPE) This may decrease voice recognition accuracy Inadvertent maple products supervisor errors may occur 02/15/2025 Chronic venous insufficiency [...] software and direct typing Please excuse inadvertent maple products supervisor or typing errors, or uncorrected word substitutions Although every attempt has been made by the provider to proofread this document, occasional misspellings and typographical errors may still be present Due to the previous pandemic, and the use of personal protective equipment (PPE) This may decrease voice recognition accuracy Inadvertent maple products supervisor errors may occur 12/11/2024 Hypothyroidism, unspecified (ICD-10 [...] software and direct typing Please excuse inadvertent maple products supervisor or typing errors, or uncorrected word substitutions Although every attempt has been made by the provider to proofread this document, occasional misspellings and typographical errors may still be present Due to the previous pandemic, and the use of personal protective equipment (PPE) This may decrease voice recognition accuracy Inadvertent maple products supervisor errors may occur 09/15/2024 Hypothyroidism, unspecified (ICD-10 [...] software and direct typing Please excuse inadvertent maple products supervisor or typing errors, or uncorrected word substitutions Although every attempt has been made by the provider to proofread this document, occasional misspellings and typographical errors may still be present Due to the previous pandemic, and the use of personal protective equipment (PPE) This may decrease voice recognition accuracy Inadvertent maple products supervisor errors may occur 12/11/2024 Chronic pain syndrome [...] software and direct typing Please excuse inadvertent maple products supervisor or typing errors, or uncorrected word substitutions Although every attempt has been made by the provider to proofread this document, occasional misspellings and typographical errors may still be present Due to the previous pandemic, and the use of personal protective equipment (PPE) This may decrease voice recognition accuracy Inadvertent maple products supervisor errors may occur 10/06/2024 Hypothyroidism, unspecified (ICD-10 [...] software and direct typing Please excuse inadvertent maple products supervisor or typing errors, or uncorrected word substitutions Although every attempt has been made by the provider to proofread this document, occasional misspellings and typographical errors may still be present Due to the previous pandemic, and the use of personal protective equipment (PPE) This may decrease voice recognition accuracy Inadvertent maple products supervisor errors may occur 02/15/2025 Pulmonary fibrosis (ICD-10 [...] software and direct typing Please excuse inadvertent maple products supervisor or typing errors, or uncorrected word substitutions Although every attempt has been made by the provider to proofread this document, occasional misspellings and typographical errors may still be present Due to the previous pandemic, and the use of personal protective equipment (PPE) This may decrease voice recognition accuracy Inadvertent maple products supervisor errors may occur 02/15/2025 Hypothyroidism, unspecified (ICD-10 [...] software and direct typing Please excuse inadvertent maple products supervisor or typing errors, or uncorrected word substitutions Although every attempt has been made by the provider to proofread this document, occasional misspellings and typographical errors may still be present Due to the previous pandemic, and the use of personal protective equipment (PPE) This may decrease voice recognition accuracy Inadvertent maple products supervisor errors may occur 02/15/2025 Chronic pain syndrome [...] software and direct typing Please excuse inadvertent maple products supervisor or typing errors, or uncorrected word substitutions Although every attempt has been made by the provider to proofread this document, occasional misspellings and typographical errors may still be present Due to the previous pandemic, and the use of personal protective equipment (PPE) This may decrease voice recognition accuracy Inadvertent maple products supervisor errors may occur 02/15/2025 Encounter for examination [...] software and direct typing Please excuse inadvertent maple products supervisor or typing errors, or uncorrected word substitutions Although every attempt has been made by the provider to proofread this document, occasional misspellings and typographical errors may still be present Due to the previous pandemic, and the use of personal protective equipment (PPE) This may decrease voice recognition accuracy Inadvertent maple products supervisor errors may occur 02/15/2025 Mild cardiomegaly (ICD-10 [...] software and direct typing Please excuse inadvertent maple products supervisor or typing errors, or uncorrected word substitutions Although every attempt has been made by the provider to proofread this document, occasional misspellings and typographical errors may still be present Due to the previous pandemic, and the use of personal protective equipment (PPE) This may decrease voice recognition accuracy Inadvertent maple products supervisor errors may occur Plan Of Treatment Pending [...] 09/03/2022 Next Appt Details Provider Name:RED BUTTS, 05/08/2025 10:45:00 AM, [address], [place], [address], Provider Name:RED BUTTS, 05/25/2025 11:00:00 AM, [address], [address], [place], [address], Insurance Providers Payer Name Payer Address Payer Phone Subscriber Number Group Number Insured Name Patient Relationship to Insured Coverage Start Date Coverage End Date Medicare Part B J14 [address] [place] [address] [id number] JB ARGUELLO Self - patient is the insured 8 [employer] and [facility] [address] [place] [address] [id number] JB ARGUELLO Self - patient is the insured 0 Medications Administered Medication Instructions Date of Administration Dosage Notes MICC B12 INJECTION 04/24/2022 lot # [id number] MICC B12 INJECTION 05/08/2022 1 mL Lot #: [id number] MICC B12 INJECTION 05/23/2022 lot @ [id number] MICC B12 INJECTION 06/05/2022 1 mL Lot #: [id number] MICC B12 INJECTION 06/19/2022 lot # [id number] MICC B12 INJECTION 06/26/2022 lot # [id number] MICC B12 INJECTION 07/03/2022 1 mL Lot #: [id number] MICC B12 INJECTION 07/10/2022 lot # [id number] MICC B12 INJECTION 07/17/2022 lot # [id number] MICC B12 INJECTION 07/24/2022 MICC B12 INJECTION 07/31/2022 [id number] MICC B12 INJECTION 08/07/2022 lot # [id number] MICC B12 INJECTION 08/14/2022 MICC B12 INJECTION 08/21/2022 1 mL Lot #: [id number] MICC B12 INJECTION 08/28/2022 MICC B12 INJECTION 09/03/2022 lot # [id number] MICC B12 INJECTION 09/12/2022 lot [id number] MICC B12 INJECTION 09/19/2022 1 mL Lot #: [id number] MICC B12 INJECTION 09/26/2022 1 mL Lot # [id number] MICC B12 INJECTION 10/03/2022 lot # [id number] MICC B12 INJECTION 10/10/2022 1 mL Lot #: [id number] MICC B12 INJECTION 10/17/2022 1 mL Lot #: [id number] MICC B12 INJECTION 10/24/2022 MICC B12 INJECTION 10/31/2022 [id number] MICC B12 INJECTION 11/07/2022 lot # [id number] MICC B12 INJECTION 11/14/2022 1 mL Lot # [id number] MICC B12 INJECTION 11/21/2022 1 mL Lot # [id number] MICC B12 INJECTION 11/28/2022 [id number] MICC B12 INJECTION 12/05/2022 lot# [id number] MICC B12 INJECTION 12/12/2022 [id number] MICC B12 INJECTION 01/23/2023 1 mL Lot #: [id number] MICC B12 INJECTION 01/30/2023 lot # [id number] MICC B12 INJECTION 02/06/2023 1 mL Lot # [id number] MICC B12 INJECTION 02/13/2023 lot # [id number] MICC B12 INJECTION 02/20/2023 1 mL Lot # [id number] Prolia 05/09/2023 1 Medical (General) History Medical History History ICD Code Hypothyroidism asthma lupus anemia brain anuerysm Pulmonary fibrosis Osteoporosis Surgical History Surgery Date(Month/Year) carpal tunnel release colonoscopy 3 years hysterectomy 1978 gallbladder 1979 Hospitalization History Reason Date(Month/Year) [facility]- BLE edema, 2023 COVID 2020
--- OUTSIDE RECORDS SUMMARY | 2025-05-06 14:50 | XMS_ITS | Encounter Summary ---
Author Organization [facility] Address [address] [place] [address] Care Team Providers Care Towel Sorter Name Role Phone Aleksandr Ortiz MD Primary Care Provider [phone] Encounter Details Date Type Department Care Team (Late st Contact Info) Description 04/23/2025 Telephone Gastroenterology - [address] [facility] [address] [place] [address] Jack Walls MD [address] [facility] [address] [place] [address] Social History Tobacco Use Types Packs/Day Years [...] on file Sexual Orientation Not on file documented as of this encounter Progress Notes * Luz Arguello MA - 05/04/2025 4:08 PM EDT Patient has not responded, closing encounter * Marielena Gabriel MA - 04/23/2025 3:55 PM EDT LM for pt to call back. * Samra Ash - 04/23/2025 8:43 AM EDT Pt is calling requesting a call back with some guidance on what she can do regarding abdominal painand diarrhea. Pt states it's been going on for a couple of days she also caught diverticulitis lastmonth when she was out of town. documented in this encounter Plan of Treatment Not on file documented as of this encounter Visit Diagnoses Not on filedocumented in this encounter Care Teams Towel Sorter Relationship Specialty Start Date End Date Aleksandr Ortiz MD PCP - General 08/08/22 documented as of this encounter
--- OUTSIDE RECORDS SUMMARY | 2025-05-06 14:50 | XMS_ITS | Clinical Summary ---
Author Organization [facility], [place], Address [address] [place] [address] Phone Care Team Providers Care Lan Specialist Name Role Phone Shawna Ac MD Primary Care Provider [phone] Allergies Active Allergy Reactions Criticality Noted Date [...] age to complete this topic Insurance Medicare [facility] Care Teams Lan Specialist Relationship Specialty Start Date End Date Shawna Ac MD [address] [place] [address] PCP - General 09/26/20
--- OUTSIDE RECORDS SUMMARY | 2025-05-06 14:50 | XMS_ITS | Clinical Summary ---
Author Organization [facility] Address [address] [place] [address] Care Team Providers Care Mold Design Engineer Name Role Phone Shawna Ac MD Primary Care Provider [phone] Allergies Active Allergy Reactions Criticality Noted Date [...] age to complete this topic Care Teams Mold Design Engineer Relationship Specialty Start Date End Date Shawna Ac MD [address] [place] [address] PCP - General Family Medicine 01/19/22
== END 2025-05-06 15:32 | disposition home or self-care (01) ==
LOC: HO.HPS 14:45
PROVIDERS: PCP Nurse Practitioner Acute Care; Visit Provider Hospitalist
DX: J84.10 Pulmonary fibrosis, unspecified (principal); J98.4 Other disorders of lung; M32.9 Systemic lupus erythematosus, unspecified; J45.20 Mild intermittent asthma, uncomplicated; D80.1 Nonfamilial hypogammaglobulinemia; G47.33 Obstructive sleep apnea (adult) (pediatric); R04.2 Hemoptysis; K52.9 Noninfective gastroenteritis and colitis, unspecified
CPT/HCPCS: 99214; G2211

== ENCOUNTER → 2025-05-06 14:44 | Outpatient (BNVA) | payer MEDICARE, BC, SELFPAY | PROVIDERS: PCP Nurse Practitioner Acute Care; Visit Provider Hospitalist | DX: J84.10 Pulmonary fibrosis, unspecified (principal); J69.0 Pneumonitis due to inhalation of food and vomit; K21.9 Gastro-esophageal reflux disease without esophagitis; M32.9 Systemic lupus erythematosus, unspecified; D80.1 Nonfamilial hypogammaglobulinemia; J45.20 Mild intermittent asthma, uncomplicated; Z79.52 Long term (current) use of systemic steroids | CPT/HCPCS: 96372; 99212; J2919 ==

== ENCOUNTER 2025-06-09 09:25 | Outpatient (AMB) | payer MEDICARE, BC, SELFPAY ==
--- NOTE | 2025-06-09 09:27 | MHC.OFFVIS ---
Vital Signs 06/09/25 09:28 Height 5 ft 7 in Weight 222 lb BMI 34.8 BP 140/60 H Blood Pressure Location Lt brachial Position Sitting Pulse 77 Intake Visit Reasons: Muscle biopsy Intake Note: This patient was referred by Dr. Cunningham for muscle biopsy. Pt c/o; Onset since last July 2024,myalgia, reports weakness, neck ,shoulder, arms, hips, thighs, limited ROM. Learning Center Coordinator Required: No Accompanied by: Self / Same As Patient Allergies denosumab (From Prolia) Allergy (Intermediate, Verified 06/09/25 09:34) Muscle Pain rofecoxib (From Vioxx) Allergy (Verified 06/09/25 09:34) Unknown Pjlwtsv-TWM-HrH Reductase Inhibitor Allergy (Verified 06/09/25 09:34) Muscle cramps Iodinated Contrast Media Adverse Reaction (Intermediate, Verified 06/09/25 09:34) Unknown Medication List - Last Reconciled 06/09/25 by Tk Del Rio MD belimumab (Benlysta) 1,100 mg IV Q4W cetirizine (Zyrtec) 10 mg PO DAILY PRN fluticasone propion-salmeterol 500-50 mcg/dose (Wixela Inhub) 1 inh inhalation BID furosemide (Lasix) 20 mg PO DAILY PRN 30 days hydroxychloroquine 100 mg PO DAILY immun glob G(IgG)-gly-IgA ov50 10 % (Gammagard Liquid) 20 grams IV Q2W levothyroxine (Synthroid) 175 mcg PO DAILY@0600 losartan 25 mg PO DAILY metformin ER 500 mg PO DAILY metoprolol succinate ER 25 mg PO DAILY nebulizers As directed omeprazole 20 mg PO DAILY@0630 ondansetron 8 mg PO Q8H roflumilast (Daliresp) 250 mcg PO DAILY 30 days tirzepatide (Mounjaro) 7.5 mg subcut TU umeclidinium 62.5 mcg/actuation (Incruse Ellipta) 1 inh inhalation DAILY 30 days Xopenex HFA 45 mcg/actuation (levalbuterol tartrate) 1 - 2 puffs inhalation Q4H PRN 30 days NS HPI HPI Muscle biopsy: Details: 69-year-old female with multiple medical problems including monoclonal gammopathy, obstructive sleep apnea, hypogammaglobulinemia, pulmonary fibrosis, hypertension, referred for muscle biopsy She has had progressive weakness of both her arms and legs for about a year now. She describes chronic pain as well. Often times she says that she has difficulty raising her arm above the shoulder level now. She says that she has been limited with regards to her physical activity because of this. [facility] Medical History (Updated 06/09/25 @ 09:56 by Tk Del Rio MD) Muscle weakness Colitis Irritable bowel syndrome Multiple sclerosis Raynaud's disease Lower abdominal pain Abnormal finding on EKG MAURO treated with BiPAP Hypogammaglobulinemia Asthma Lupus Pneumonitis Pulmonary fibrosis Family History Maternal Aunt Brain abscess Bone cancer Maternal Aunt Lung cancer Melanoma Maternal Uncle Melanoma Bone cancer Lung cancer Mother Thyroid cancer Uterine cancer Social History Household Members: Spouse Housing: House Do you presently have visiting nurse or other home services: No Alcohol intake: current Alcohol intake frequency: does not drink Comment: pt refusing alarms Patient Tobacco Use Status: Former Tobacco user Tobacco use type: Cigarette Years Smoked: 20 Years e-Cigarette/Vaping Use: Never Used service: No Current occupational status: retired Review of Systems Const Denies chills and Denies fever(s) Card Denies chest pain, Reports dyspnea and Reports dyspnea on exertion Resp Denies cough, Reports dyspnea and Reports dyspnea on exertion GI Denies hematochezia and Denies change in bowel habits Denies hematuria Musc Reports abnormal gait, Reports back pain, Reports arthralgias, Reports limited range of motion and Reports muscle weakness Neuro Reports abnormal gait, Denies focal weakness and Denies convulsions Psych Denies depression and Denies mood swings Physical Exam Vital Signs: Last Vital Signs Pulse 77 06/09/25 09:28 BP 140/60 H 06/09/25 09:28 BMI result Body Mass Index 34.8 Const Other: Using a walker General: comfortable and no acute distress Nutritional Appearance: obese Orientation/consciousness: patient oriented x3 Neck Neck: Yes no lymphadenopathy Resp Auscultation: clear to auscultation bilaterally Cardio Rhythm: regular rhythm GI Palpation (GI): Soft to palpation, nontender and no guarding Neuro General: patient oriented x3 Assessment & Plan Assessment & Plan (1) Muscle weakness: Code(s): M62.81 - Muscle weakness (generalized) Category: Medical Plan: She has had progressive muscle weakness on both the arms and the legs. She was referred to me for muscle biopsy. I explained the technique of the biopsy from the right thigh under monitored anesthesia care. I reviewed the risks of bleeding, infections and postop pain. She does have multiple medical problems including pulmonary fibrosis and she uses O2 periodically at night and she is also on CPAP . I explained to her that anesthesia also presents with perioperative risks She says she understands and wants to proceed. Coding Level of Care Code Est Pt Level 3 (76745) Diagnoses Muscle weakness M62.81
[2025-06-09 09:28] VITALS: BP 140/60; PULSE 77; BMI 34.8
== END 2025-06-09 09:52 | disposition home or self-care (01) ==
LOC: HO.HGS 09:25
PROVIDERS: PCP Nurse Practitioner Acute Care; Visit Provider Surgery
DX: M62.81 Muscle weakness (generalized) (principal)
CPT/HCPCS: 99213

== ENCOUNTER → 2025-06-09 09:25 | Outpatient (BNVA) | payer MEDICARE, BC, SELFPAY | PROVIDERS: PCP Nurse Practitioner Acute Care; Visit Provider Surgery | DX: M62.81 Muscle weakness (generalized) (principal); Z87.891 Personal history of nicotine dependence | CPT/HCPCS: 99212 ==

== ENCOUNTER 2025-06-24 09:21 | Outpatient (REF) | payer MEDICARE, BC, SELFPAY ==
[2025-06-24 10:14] LABS: MANUAL DIFF FLAG NO
[2025-06-24 10:22] LABS: Hematocrit 38.2 % (37.0-47.0); Hemoglobin 12.6 g/dl (12.0-16.0); Imm Gran Abs Auto 0.09 X10*3/uL (0.00-0.03); Imm Gran Pct Auto 1.0 % (0.0-0.4); Lymphocytes Absolute Auto 2.6 X10*3/uL (1.2-4.9); Mean Corpuscular HGB Conc 33.0 g/dl (31.0-35.0); Mean Corpuscular Hemoglobin 26.4 pg (27.0-33.0); Mean Corpuscular Volume 79.9 fL (80.0-98.0); NRBC Abs Auto 0.000 X10*3/uL (0.0-0.012); NRBC Pct Auto 0.0 /100WBC (0.0-0.2); Platelet Count 224 X10*3/uL (160-400); Red Blood Count 4.78 X10*6/uL (4.20-5.50); White Blood Count 9.4 X10*3/uL (4.8-10.8)
[2025-06-24 10:28] LABS: INTERNATIONAL NORM RATIO 0.9 (0.9-1.1); Prothrombin Time 10.3 SEC (10.9-12.4)
[2025-06-24 10:31] LABS: Partial Thromboplastin Time 25.8 SEC (26.7-34.1)
[2025-06-24 10:40] LABS: Alanine Aminotransferase 36 U/L (0-31); Albumin Level 3.9 g/dL (3.5-5.0); Alkaline Phosphatase 85 U/L (39-117); Anion Gap 11 (12-20); Aspartate Amino Transferase 28 U/L (5-31); Blood Urea Nitrogen 7 mg/dL (9-16); Calcium 9.5 mg/dL (8.4-10.2); Carbon Dioxide 27 mmol/L (22-29); Chloride 111 mmol/L (96-108); Estimated Glomerular Filt Rate > 60; Potassium 3.9 mmol/L (3.3-5.1); Sodium 145 mmol/L (135-145); Total Protein 6.7 g/dL (6.5-8.0)
[2025-06-24 10:56] LABS: Thyroid Stimulating Hormone 1.26 uIU/mL (0.32-4.0)
== END 2025-06-24 09:22 | disposition home or self-care (01) ==
LOC: HO.LAB 09:21
PROVIDERS: PCP Nurse Practitioner Acute Care; Visit Provider Nurse Practitioner Acute Care
DX: Z01.818 Encounter for other preprocedural examination (principal); Z51.81 Encounter for therapeutic drug level monitoring; E03.9 Hypothyroidism, unspecified
CPT/HCPCS: 36415; 80053; 84436; 84443; 85025; 85610; 85730

== ENCOUNTER 2025-07-09 07:21 | Day surgery (SDC) | payer MEDICARE, BC, SELFPAY ==
[2025-07-07 08:48] VITALS: BMI 34.8
--- NOTE | 2025-07-07 09:26 | HO.ANESPROP2 ---
HPI - Anesthesia Eval Consult details Narrative: 69yo F for Right Muscle Biopsy on Thigh Medically optimized to proceed per PCP Pulmo optimized for procedure. [place]s [facility] [place] for pulmonary fibrosis, MAURO. O2 use:2 L pulse with activity and 2 L at nighttime with PAP therapy. MS, SLE, recurrent COVID infection and interstitial pulmonary fibrosis. She is currently being treated with mycophenolate and steroids. Noted to have hypogammaglobulinemia. On IVIG Anesthesia Pre-Procedure Meds Is the patient on any of the following meds?: GLP1/DPP4 PMFSH Active Problems Active Problems: All Active Problems Gastroenteritis (Acute) Abdominal pain (Acute) Intractable nausea and vomiting (Acute) Hypertension (Acute) Cardiomegaly (Acute) Blood D-dimer assay positive (Acute) Hemoptysis (Acute) Precordial chest pain (Acute) Sinusitis (Acute) MGUS (monoclonal gammopathy of unknown significance) (Acute) Aspiration pneumonitis (Acute) Muscle weakness (Acute) Colitis (Acute) Lower abdominal pain (Acute) Abnormal finding on EKG (Acute) MAURO treated with BiPAP (Acute) Hypogammaglobulinemia (Acute) Asthma (Acute) Lupus (Acute) Pneumonitis (Acute) Pulmonary fibrosis (Acute) Past Medical History Medical History (Updated 07/07/25 @ 08:56 by Yeni Sloan RN) Osteoarthritis PVCs (premature ventricular contractions) Fatty liver Edema COVID-19 Osteoporosis Brain aneurysm Anemia Thyroid disease Muscle weakness Colitis Irritable bowel syndrome Multiple sclerosis Raynaud's disease Lower abdominal pain Abnormal finding on EKG MAURO treated with BiPAP Hypogammaglobulinemia Asthma Lupus Pneumonitis Pulmonary fibrosis Family History Family History Maternal Aunt Brain abscess Bone cancer Maternal Aunt Lung cancer Melanoma Maternal Uncle Melanoma Bone cancer Lung cancer Mother Thyroid cancer Uterine cancer Surgical History Surgical History (Updated 07/07/25 @ 08:53 by Yeni Sloan RN) Hx of cholecystectomy Hx of hysterectomy History of carpal tunnel release H/O colonoscopy Social History Social History Household Members: Spouse Housing: House Do you presently have visiting nurse or other home services: No Alcohol intake: current Alcohol intake frequency: does not drink Comment: pt refusing alarms Patient Tobacco Use Status: Former Tobacco user Tobacco use type: Cigarette Years Smoked: 20 Years e-Cigarette/Vaping Use: Never Used service: No Current occupational status: retired Meds Allergies Allergy/AdvReac Type Severity Reaction Status Date / Time denosumab (From Prolia) Allergy Intermediate Muscle Pain Verified 06/09/25 09:34 rofecoxib (From Vioxx) Allergy Unknown Verified 06/09/25 09:34 Lbarirk-LUO-KyH Reductase Allergy Muscle Verified 06/09/25 09:34 Inhibitor cramps Iodinated Contrast Media AdvReac Intermediate Unknown Verified 06/09/25 09:34 Home Medications ?Medication ?Instructions ?Recorded ?Confirmed ?Last Taken ?Type cetirizine 10 mg tablet (Zyrtec) 10 mg PO DAILY PRN Allergy Symptoms 01/17/24 07/07/25 04/21/25 History hydroxychloroquine 200 mg tablet 200 mg PO DAILY 01/17/24 07/07/25 04/21/25 History losartan 25 mg tablet 25 mg PO DAILY 01/17/24 07/07/25 04/21/25 History nebulizers 03/03/24 07/07/25 Unknown History metformin 500 mg 24 hr 500 mg PO QPM 08/17/24 07/07/25 04/21/25 History tablet,extended release (gastric retention) omeprazole 10 mg capsule,delayed 40 mg PO DAILY@0630 02/25/25 07/07/25 04/21/25 History release belimumab 400 mg intravenous 1,100 mg IV Q4W 04/23/25 07/07/25 04/01/25 History solution (Benlysta) immune glob,gamma (IgG) 10 20 g IV Q2W 04/23/25 07/07/25 04/09/25 History %-gly-IgA over 50 mcg/mL injection solution (Gammagard Liquid) metoprolol succinate 50 mg 50 mg PO DAILY 04/23/25 07/07/25 Unknown History tablet,extended release 24 hr ascorbic acid (vitamin C) 1,000 mg 1,000 mg PO DAILY 07/07/25 07/07/25 Unknown History tablet (Vitamin C) berberine chloride 500 mg capsule 500 mg PO DAILY 07/07/25 07/07/25 Unknown History vvaztjqytr-eievxjhpirmgm-rmkkeqpg 1 cap PO DAILY PRN Headache 07/07/25 07/07/25 Unknown History 50 mg-300 mg-40 mg capsule calcium carbonate 500 mg PO BID 07/07/25 07/07/25 Unknown History cholecalciferol (vitamin D3) 25 25 mcg PO DAILY 07/07/25 07/07/25 Unknown History mcg (1,000 unit) tablet (Vitamin D3) coQ10 (ubiquinol) 100 mg capsule 100 mg PO BID 07/07/25 07/07/25 Unknown History diltiazem HCl 120 mg 120 mg PO DAILY 07/07/25 07/07/25 Unknown History capsule,extended release 24 hr, controlled (DILT-XR) lactobacillus combination no.4 3 3,000 mmu cells PO DAILY 07/07/25 07/07/25 Unknown History billion cell capsule (Probiotic) levalbuterol tartrate 45 1 - 2 puff inhalation Q4H PRN 07/07/25 07/07/25 Unknown History mcg/actuation aerosol inhaler wheezing levothyroxine 150 mcg tablet 150 mcg PO QAM 07/07/25 07/07/25 Unknown History (Synthroid) magnesium oxide 400 mg PO DAILY 07/07/25 07/07/25 Unknown History tirzepatide 10 mg/0.5 mL 10 mg subcut QWEEK 07/07/25 07/07/25 Unknown History subcutaneous pen injector (Mounjaro) tramadol 50 mg tablet 50 mg PO Q6H PRN pain 07/07/25 07/07/25 Unknown History zinc gluconate 100 mg tablet 100 mg PO DAILY 07/07/25 07/07/25 Unknown History Exam Height,Weight and Vital Signs: Height 5 ft 7 in Weight 100.698 kg Pertinent Lab Results Pertinent Lab Results: Laboratory Tests 07/01/25 10:11 WBC 8.3 Hgb 13.6 Hct 43.2 Plt Count 229 Sodium 145 Potassium 3.4 Chloride 109 H Carbon Dioxide 26 BUN 13 Creatinine 0.75 Narrative Narrative: ECHO 02/2025 Conclusions: - 1. Normal LV ejection fraction of 60 65% with mild LVH with impaired relaxation filling pattern with moderate asymmetric septal hypertrophy 2. Normal cardiac valvular Dopplers 3. No gross pericardial effusion 10/20/2024-echo study showed a normal LV systolic function with an ejection fraction at 66%, with moderately increased LV wall thickness. 12/16/2024-coronary CTA showed reduced image quality due to body habitus otherwise no definitive obstructive coronary disease. 01/27/2025-chest CT showed mild calcifications in the vessel with a moderately enlarged heart size. EKG 06/2025 SR @ 70 RSR EKG 08/2024 Vent. Rate : 081 BPM Atrial Rate : 081 BPM P-R Int : 140 ms QRS Dur : 082 ms QT Int : 392 ms P-R-T Axes : 024 -43 -11 degrees QTc Int : 455 ms Normal sinus rhythm Left axis deviation Low voltage QRS Cannot rule out Anterior infarct , age undetermined Abnormal ECG When compared with ECG of 26-JUN-2024 12:11, Premature ventricular complexes are no longer Present Minimal criteria for Anterior infarct are now Present Nonspecific T wave abnormality now evident in Anterior leads Assessment and Plan Assessment Anesthesia Assessment: Chart Reviewed
[2025-07-09 07:50] VITALS: BP 130/74; PULSE 78; RESP 20; TEMP 36.8; O2SAT 95; BMI 34.4
[2025-07-09] MEDS: Lactated Ringers 1,000 ML 50 ML IVCONT (08:05)
--- NOTE | 2025-07-09 08:17 | MHC.SHP ---
Pre-Procedural Eval Section A - 24 Hr Update-Section A only Date of Service: 07/09/25 The patient is an INPATIENT: No Changes since office visit: No Cold of Flu in the past 2 weeks, No New Medical Problems, No Changes in Medication and No Patient answered all questions The patient has been examined within 24 hours of the surgical procedure. The History & Physical has been completed within 30 days and I have reviewed it.: Yes Section B - Complete if H&P > 30 days Chief Complaint: Muscle weakness (generalized) Allergies: Allergies Allergy/AdvReac Type Severity Reaction Status Date / Time azithromycin (From Zithromax) Allergy Severe Chest Pain Verified 07/09/25 08:10 ciprofloxacin (From Cipro) Allergy Severe Muscle Pain Verified 07/09/25 08:10 denosumab (From Prolia) Allergy Intermediate Muscle Pain Verified 06/09/25 09:34 rofecoxib (From Vioxx) Allergy Unknown Verified 06/09/25 09:34 Uwblgbn-YZT-UiT Reductase Allergy Muscle Verified 06/09/25 09:34 Inhibitor cramps Iodinated Contrast Media AdvReac Intermediate Unknown Verified 06/09/25 09:34 Plan I have reviewed the history and physical and performed a pertinent physical examination on my patient. No changes have occurred unless specified. Time Spent With Patient Time: Total time managing care of this patient today ____ minutes.
[2025-07-09 08:23] LABS: Glucose, Whole Blood 112 mg/dL (60-115)
--- NOTE | 2025-07-09 10:10 | P.OP_ITS ---
Operative Note Operative Note Date of Service: 07/09/25 Narrative: Preop diagnosis: Progressive muscle weakness Postop diagnosis: The same Procedure: Muscle biopsy, right thigh, quadriceps muscle Surgeon: Tk Del Rio MD medical assistant instructor: BERTO Westbrook The patient is a 76 year old female referred to me for muscle biopsy in view of her progressive so weakness. She understood the technique of muscle biopsy of the right thigh quadriceps muscle. She was aware of the risks, benefits, and alternatives. She was brought to the operating room and placed supine under monitored anesthesia care. The anterior right thigh was prepped and draped in the usual sterile fashion. A surgical time-out was done. The patient received cefazolin 2 g IV preoperatively I infiltrated the planned line of incision. I made a transverse incision on the skin overlying the palpable quadriceps muscle with a blade 15. This carried down through the full-thickness of the skin and subcutaneous fat. The fascia was incised. I define the muscle fibers. I transected 2 segments of the quadriceps muscle fibers, each about 1.5 cm long and 1 cm wide . One event was placed on a muscle clamped the put this on stretch. The other was placed in normal saline I observed for hemostasis. I irrigated. Once hemostasis was confirmed, I proceeded to reapposed the divided fascia with Polysorb 2-0 interrupted sutures. The subdermal and subcutaneous layer were reapposed with Polysorb 3-0 simple in terrupted sutures. Skin closure was achieved with nylon 3-0 simple interrupted sutures. The area was then infiltrated with Marcaine 0.5% for postop analgesia. Dressings were applied. The procedure was completed. The she tolerated procedure well. There were no immediate complications. Estimated blood loss was less than 20 cc. The patient was then transferred to the recovery room with stable vital signs.
[2025-07-09 10:20] VITALS: BP 143/68; PULSE 70; RESP 12; TEMP 36.9; O2SAT 97
[2025-07-09 10:35] VITALS: BP 148/70; PULSE 55; RESP 15; O2SAT 98
[2025-07-09 10:50] VITALS: BP 142/60; PULSE 56; RESP 17; TEMP 36.8; O2SAT 98
== END 2025-07-09 12:00 | disposition home or self-care (01) ==
PROVIDERS: PCP Internal Medicine; Visit Provider Surgery
PROC: (CPT 20205; principal; 2025-07-09 10:10)
DX: M62.551 Muscle wasting and atrophy, not elsewhere classified, right thigh (principal); D47.2 Monoclonal gammopathy; D80.1 Nonfamilial hypogammaglobulinemia; G35.D Multiple sclerosis, unspecified; G47.33 Obstructive sleep apnea (adult) (pediatric); J84.10 Pulmonary fibrosis, unspecified; J45.20 Mild intermittent asthma, uncomplicated; R04.2 Hemoptysis; G89.29 Other chronic pain; I73.00 Raynaud's syndrome without gangrene; I10 Essential (primary) hypertension; K52.9 Noninfective gastroenteritis and colitis, unspecified; Z79.51 Long term (current) use of inhaled steroids; Z79.899 Other long term (current) drug therapy; Z79.84 Long term (current) use of oral hypoglycemic drugs; Z79.85 Long-term (current) use of injectable non-insulin antidiabetic drugs; Z99.81 Dependence on supplemental oxygen; Z99.89 Dependence on other enabling machines and devices; Z88.8 Allergy status to other drugs, medicaments and biological substances; Z91.041 Radiographic dye allergy status; Z87.891 Personal history of nicotine dependence
CPT/HCPCS: 20205; 82947; 88300; 88305; 88313; 88319; 88348; J0131; J0690; J2003; J2250; J2704; J2795; J3010

== ENCOUNTER → 2025-07-09 07:21 | Outpatient (BNV) | payer MEDICARE, BC, SELFPAY | PROVIDERS: PCP Internal Medicine; Visit Provider Surgery | DX: M62.81 Muscle weakness (generalized) (principal) | CPT/HCPCS: 20200 ==

== ENCOUNTER 2025-07-26 10:02 | Outpatient (AMB) | payer MEDICARE, BC, SELFPAY ==
--- NOTE | 2025-07-26 10:03 | A.OFFVIS_ITS ---
Vital Signs 07/26/25 10:04 Weight 218 lb BP 139/62 Blood Pressure Location Lt brachial Position Sitting Pulse 76 Intake Visit Reasons: s/p Muscle biopsy right thigh Intake Note: Patient here s/p Rt muscle bx. Patient c/o: sore, painful to touch, swollen. Itchy along sutures. Taking Tylenol as needed/ CBD w/melatonin gummy to help w/sleep. Procedure (FM): 07-09-2025 Plastic Finisher Required: No Accompanied by: Self / Same As Patient Allergies azithromycin (From Zithromax) Allergy (Severe, Verified 07/26/25 10:03) Chest Pain ciprofloxacin (From Cipro) Allergy (Severe, Verified 07/26/25 10:03) Muscle Pain denosumab (From Prolia) Allergy (Intermediate, Verified 07/26/25 10:03) Muscle Pain rofecoxib (From Vioxx) Allergy (Verified 07/26/25 10:03) Unknown Zchpmwk-ZLE-WcH Reductase Inhibitor Allergy (Verified 07/26/25 10:03) Muscle cramps Iodinated Contrast Media Adverse Reaction (Intermediate, Verified 07/26/25 10:03) Unknown HPI HPI s/p Muscle biopsy right thigh: Details: Naheed Luna is a 69 year old female presenting for a wound check. She underwent muscle biopsy, right thigh, quadriceps muscle on 07/09/[address] Del Rio for progressive weakness of her upper and lower extremities. She tolerated the procedure well. She attempted to take tramadol for the pain for two days but it didn't help at all. She has just been icing the incision site with improvement. She thinks after the first few days it was less incisional pain and more of an aggravation of her chronic leg pain and burning because the pain extended up to wards her hip. She reports she started to feel better last week and is able to move better. She has no concerns. [facility] Medical History (Updated 07/09/25 @ 08:14 by Jasmin Hunt RN) Complication of general anesthesia Osteoarthritis PVCs (premature ventricular contractions) Fatty liver Edema COVID-19 Osteoporosis Brain aneurysm Anemia Thyroid disease Muscle weakness Colitis Irritable bowel syndrome Multiple sclerosis Raynaud's disease Lower abdominal pain Abnormal finding on EKG MAURO treated with BiPAP Hypogammaglobulinemia Asthma Lupus Pneumonitis Pulmonary fibrosis Surgical History (Updated 07/26/25 @ 07:56 by EUFEMIA Donohue) Hx of surgical procedure (07/09/25) History of tonsillectomy and adenoidectomy Hx of cholecystectomy Hx of hysterectomy History of carpal tunnel release H/O colonoscopy Family History Maternal Aunt Brain abscess Bone cancer Maternal Aunt Lung cancer Melanoma Maternal Uncle Melanoma Bone cancer Lung cancer Mother Thyroid cancer Uterine cancer Social History Household Members: Spouse Housing: House Do you presently have visiting nurse or other home services: No Alcohol intake: current Alcohol intake frequency: does not drink Comment: pt refusing alarms Patient Tobacco Use Status: Former Tobacco user Tobacco use type: Cigarette Years Smoked: 20 Years e-Cigarette/Vaping Use: Never Used service: No Current occupational status: retired Review of Systems Const Denies chills and Denies fever(s) ENT Denies dizziness Card Denies chest pain Skin/Breast Reports as per HPI, Denies erythema and Denies rash Neuro Denies dizziness Physical Exam Vital Signs: Last Vital Signs Pulse 76 07/26/25 10:04 BP 139/62 07/26/25 10:04 Const General: comfortable, no acute distress and alert Orientation/consciousness: patient oriented x3 Resp Effort & Inspection: normal respiratory effort Skin Other: warm and dry excision site as noted below Neuro General: patient oriented x3 and moves all extremities Extrem Other: right anterior thigh- excision site with wound edges well approximated, healing well and sutures therefore removed uneventfully, no drainage noted, mild erythema localized to where sutures where in place, overall clean appearing, mildly tender Results Reviewed Results Reviewed: A and B: [facility] diagnosis summary: -Abnormal muscle with moderate to marked type 2 fiber atrophy (see note). Note: The principal abnormality present in the muscle is type 2 fiber atrophy. This is a non-specific change that may occur in a variety of different conditions including disuse/inactivity, systemic illness and long-term corticosteroid use. The muscle does not show evidence of denervation, primary myopathy or myositis. Clinical correlation is recommended. Addendum: Immunohistochemistry: MHC class 1: Negative Interpretation: No reactivity for MHC class 1 is present on the sarcolemma of muscle fibers. This finding would not support a diagnosis of inflammatory or autoimmune myopathy Assessment & Plan Assessment & Plan (1) Muscle weakness: Code(s): M62.81 - Muscle weakness (generalized) Category: Medical Plan 69 year old s/p muscle biopsy, right thigh, quadriceps muscle on 07/09/25 for progressive weakness of her upper and lower extremities. Her excision site is well approximated and well healed, sutures removed, no evidence of infection. Pathology results as noted. Instructed to follow back up with referring provider Dr. Cunningham for discussion about results and further treatment. She has an appointment next month. She can follow up with surgery as needed if she develops concerns. Coding Level of Care Code Global (58546) Diagnoses Muscle weakness M62.81
[2025-07-26 10:04] VITALS: BP 139/62; PULSE 76
--- OUTSIDE RECORDS SUMMARY | 2025-07-26 11:38 | XMS_ITS | Clinical Summary ---
Author Organization [facility] Address [address] [place] [id number] Phone Care Team Providers Care Network Operations Specialist Name Role Phone Aleksandr Ortiz MD Primary [...] at Not on file Legal Sex Female 7:16 PM EST Gender [...] 1971 LIPID PANEL 1971 PNEUMOCOCCAL VACCINES (50+ years) (1 of 2 - PCV) 1972 SMOKING STATUS SCREENING (Once After 26 Yrs) 1979 MAMMOGRAM 1993 COLOGUARD 1998 COLONOSCOPY 1998 COLORECTAL CANCER SCREENING 1998 FIT TEST 1998 FOBT 1998 SIGMOIDOSCOPY 1998 VIRTUAL COLONOSCOPY 1998 RSV VACCINE (1 - Risk 50-74 years 1-dose series) 2003 ZOSTER VACCINES (1 of 2) 2003 OSTEOPOROSIS SCREENING INITIAL (ONE-TIME) 2018 DIABETIC EYE EXAM 04/23/2023 BLOOD PRESSURE 10/24/2023 04/23/2023 INFLUENZA VACCINE (#1) 2025 , 06/22/2022, 06/29/2021, Additional history exists COVID-19 VACCINE ( season) 2025 HEPATITIS A VACCINES Aged Out No long [...] file Insurance MEDICARE PART A & B [facility] MEDICARE PART A & [place] [address] [place] [address] MEDICARE PART A & B [facility] MEDICARE PART A & B [facility] MEDICARE PART A & B Member Subscriber Plan / Payer (Ef fective 2018-Present) Name:Naheed Luna Member ID:[id number] Relation to Subscriber:Self Name:Naheed Luna Subscriber ID:[id number] Payer ID:[id number] Group ID:Not on file Type:Medicare Address: [address] [place] [phone] [facility] MEDICARE PART A & B [facility] Care Teams Network Operations Specialist Relationship Specialty Start Date End Date Aleksandr Ortiz MD [address] [place] [id number] PCP - General Internal Medicine 12/24/22 Additional Source Comments The information contained in this document represents components of the legal health record. It is not the complete legal health record.[facility]
--- OUTSIDE RECORDS SUMMARY | 2025-07-26 11:38 | XMS_ITS | Clinical Summary ---
Author Organization [facility], Address [address] [place] [address] Phone Care Team Providers Care Sorter Laundry Articles Name Role Phone Shawna cA MD Primary Care Provider [phone] Allergies Active Allergy Reactions Criticality Noted Date [...] age to complete this topic Insurance Medicare [facility] Care Teams Sorter Laundry Articles Relationship Specialty Start Date End Date Shawna Ac MD [address] [place] [address] PCP - General 09/26/20
--- OUTSIDE RECORDS SUMMARY | 2025-07-26 11:38 | XMS_ITS | Clinical Summary ---
Author Organization [facility] Address [address] [place] [address] Care Team Providers Care Animal Daycare Provider Name Role Phone Shawna Ac MD Primary Care Provider [phone] Allergies Active Allergy Reactions Criticality Noted Date [...] age to complete this topic Care Teams Animal Daycare Provider Relationship Specialty Start Date End Date Shawna Ac MD [address] [place] [address] PCP - General Family Medicine 01/19/22
--- OUTSIDE RECORDS SUMMARY | 2025-07-26 11:38 | XMS_ITS | Clinical Summary ---
Author Organization [address] [place] [address] [place] [phone] Phone Care Team Providers Care Developer Programmer Name Role Phone Aleksandr Ortiz MD Primary Care Provider [phone] Surgical History Surgery Date Site/Laterality Comments CHOLECYSTECTOMY PROCEDURE: HISTORICAL CHOLECYSTECTOMY TONSILLECTOMY PROCEDURE: HISTORICAL TONSILLECTOMY; COMMENT: and adenoidectomy HYSTERECTOMY PROCEDURE: HISTORICAL HYSTERECTOMY; COMMENT: CHARLEY BSO OTHER SURGICAL HISTORY PROCEDURE: HISTORY OTHER; COMMENT: Surgery for relief elev intraocular press cyclocryotherapy APPENDECTOMY PROCEDURE: HISTORICAL APPENDECTOMY; COMMENT: with the CHARLEY. OTHER SURGICAL HISTORY PROCEDURE: ---- OTHER ----; [...] Comments: Jayesh. Managed by Dr Enriqueta Gabriel crystal report developer in [place] Substance dependence, contin uous ([facility] V24, [facility] V28) 12/10/2017 DX:Substance dependence, co ntinuous ([facility]); COMMENT: Opioids Paresthesia of both legs 06/24/2017 DX:Pare sthesia of both legs Vitamin D deficiency 11/11/2017 DX:Vitamin D deficiency Systemic lupus erythematosus ([facility] V24, [facility] V28) 05/05/2018 DX:Systemic lupus erythemato erica ([facility]); COMMENT: Comments: Was seeing Dr Moreno Raynaud's disease 02/11/2018 DX:Raynaud's d isease 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 DX:Proctalgia f ugax Osteoporosis 12/17/2016 DX:Osteoporosis; COMMENT: Comments: Has Vitamin D Deficieny and is followed by Enriqueta Gabriel MD 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 Major depression, recurrent ([facility] V24) 07/11/2011 DX:Major depression, recurre nt ([facility]) Nephrolithiasis 01/25/2010 DX:Nephrolithias is Lumbar degenerative disc disease 06/13/2016 DX:Lumbar degenerative disc disease Irritable bowel syndrome 01/06/2013 DX:Irri table bowel syndrome; COMMENT: Comments: diagnosed [facility] colonoscopy negative jul 05 2003 for cancer Hypothyroidism 11/11/2017 DX:Hypothyroidis m Hypogammaglobulinemia ([facility] V24) 01/25/2010 DX:Hypogammaglobulinemia ([facility]); COMMENT: Comments: Was seen by tractor trailer moving van driver in 2001 who ruled out multiple myeloma [...] 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 in [place] put her on BMP a novel medication that according to her caused damage and resulted in surgeries. Her pain management doctor is Dr Montgomery [phone]. Medical Collections Representative Dr Gomez [phone]. Diabetes mellitus type 2, un complicated ([facility] V24, [facility] V28) 05/05/2018 DX:Diabetes mellitus type 2 , uncomplicated ([facility]) History of Lyme disease 10/13/2018 DX:Histo ry [...] Value Date Recorded Sex Assigned at Female 05/26/2025 11:12 PM EDT Legal Sex Female 10:20 AM EST Gender Identity Female 05/26/2025 11:12 PM EDT Sexual Orientation Straight 05/26/2025 11 :12 PM EDT Obstetrics History Last Filed Vital Signs Vital [...] Health Maintenance Due Date Last Done Comments Colorectal Cancer Screening: Colonoscopy 1955 Diabetes: Annual GFR (Glomerular Filtration Rate) 1955 Diabetes: Annual Foot Exam 1963 Diabetes: Annual Retina Eye Exam 1963 DTaP,Tdap,and Td Vaccines (1 - Tdap) 1972 RSV Immunization Adult Patients (1 - Risk 50-74 years 1-dose series) 2003 Zoster Vaccines (1 of 2) 2003 Pneumococcal Vaccine: 50+ Years (2 of 2 - PCV) 06/24/2018 06/24/2017 Breast Cancer Screening 12/01/2020 12/01/2018 Cholesterol Screening (Lipid Panel) 08/19/2022 Falls Risk Assessment 08/19/2022 Hepatitis C Screening 08/19/2022 Osteoporosis Screening (Bone Density Screening) 08/19/2022 Social Influencers of Health Screening 08/19/2022 Diabetes: Annual Urine Albumin-Creatinine Ratio (uACR) 08/31/2022 Hypertension/CHF/CAD Annual BMP Blood Test 08/31/2022 Medicare Annual Wellness Visit 01/11/2024 01/10/2023 Depression Screening 09/16/2024 COVID-19 Vaccine ( season) 2025 Influenza Vaccine (#1) 2025 3, 06/22/2022, 06/29/2021, Additional history exists Diabetes: Blood Sugar Control Test (HGBA1C) 11/22/2025 05/25/2025 HIB Vaccines Aged Out No longer eligi [...] Procedure Name Priority Date/Time Associated Diagnosis Comments ACETYLCHOLINE RECEPTOR, BINDING Routine 05/25/2025 11:45 AM EDT Primary hypothyroidism Diffuse myofascial pain syndrome Diabetes mellitus (CMS/HCC V24, CMS/HCC V28) MUSK ANTIBODY Routine 05/25/2025 11:45 AM EDT Primary hypothyroidism Diffuse myofascial pain syndrome Diabetes mellitus (CMS/HCC V24, CMS/HCC V28) THYROID STIMULATING HORMONE Routine 05/25/2025 11:45 AM EDT Primary hypothyroidism Diffuse myofascial pain syndrome Diabetes mellitus (CMS/HCC V24, CMS/HCC V28) HEMOGLOBIN A1C Routine 05/25/2025 11:45 AM EDT Primary hypothyroidism Diffuse myofascial pain syndrome Diabetes mellitus (CMS/HCC V24, CMS/HCC V28) THYROXINE TOTAL Routine 05/25/2025 11:45 AM EDT Primary hypothyroidism Diffuse myofascial pain syndrome Diabetes mellitus (CMS/HCC V24, CMS/HCC V28) SOREN SCREENING DIGITAL Routine 12/01/2018 4:18 PM EDT Encounter for screening mammogram for malignant neoplasm of breast from Last 3 Months or Most Recently Relevant to Health Maintenance Results * MuSK antibody (05/25/2025 11:45 AM EDT) MuSK Ab IgG CBA IFA Screen, Serum <1:10 <1:10 06/01/2025 12:26 AM EDT [facility] Comment: Clinical Interpretation: MuSK Antibody, IgG is not detected. No further testing will be performed. INTERPRETIVE INFORMATION: MuSK IgG Ab CBA, Serum, with Rflx Muscle-specific kinase (MuSK) antibody is found in a subset of patients with myasthenia gravis, primarily those seronegative for muscle acetylcholine receptor (AChR) antibody. Decreasing antibody levels may be associated with therapeutic response; therefore, clinical correlation must be strongly considered. A negative test result does not rule out a diagnosis of myasthenia gravis. This indirect fluorescent antibody cell-based assay (CBA) utilizes muscle-specific kinase (MuSK) transfected cells for the detection of the MuSK IgG antibody. This test was developed and its performance characteristics determined by [facility]. It has not been cleared or approved by the U.S. Food and Drug Administration. This test was performed in a CLIA-certified laboratory and is intended for clinical purposes. Performed By: [facility] [address] [place] [id number] Wildlife Control Agent: Raffi Navas MD, PhD CLIA Number: [id number] MuSK Ab IgG CBA IFA Titer, Serum TNP 06/01/2025 12:26 AM EDT [facility] Blood Venous blood specimen / Unknown Venipuncture / Unknown 05/25/2025 11:45 AM EDT 05/25/2025 12:44 PM EDT Richard Mcelroy COMIC ARTIST LAB BLOOD ORDERABLES Final Re sult Performing Organization Address [facility] Co de Phone Number [facility] [address] [place] [address] * Acetylcholine receptor, binding (05/25/2025 11:45 AM EDT) Acetylcholine Receptor Binding Antibody <0.30 nmol/L 06/01/2025 7:37 AM EDT [facility] Comment: Reference Ranges for Acetylcholine Receptor Binding Antibody: Negative: < or =0.30 nmol/L Equivocal: 0.31-0.49 nmol/L Positive: > or =0.50 nmol/L Test Performed at: [facility] [address] [id number] Tim Lubin MD, PhD, ALEX Blood Venous blood specimen / Unknown Venipuncture / Unknown 05/25/2025 11:45 AM EDT 05/25/2025 12:44 PM EDT Richard Mcelroy COMIC ARTIST LAB BLOOD ORDERABLES Final Re sult Performing Organization Address [facility] Co de Phone Number [facility] [address] [place] [address] * (ABNORMAL) Thyroid stimulating hormone (05/25/2025 11:45 AM EDT) Pathologist [facility] TSH 0.33(L) 0.40 - 4.00 mcIU/mL LAB CHEMISTRY METHOD 05/25/2025 1:46 PM EDT [facility] Blood Venous blood specimen / Unknown Venipuncture / Unknown 05/25/2025 11:45 AM EDT 05/25/2025 12:44 PM EDT Richard Mcelroy NP LAB BLOOD ORDERABLES Final Re sult [facility] [address] [place] [address], [place] [phone] * (ABNORMAL) Thyroxine total (05/25/2025 11:45 AM EDT) Pathologist [facility] T4, Total 12.8(H) 4.5 - 10.9 mcg/dL LAB CHEMISTRY METHOD 05/25/2025 2:15 PM EDT [facility] Blood Venous blood specimen / Unknown Venipuncture / Unknown 05/25/2025 11:45 AM EDT 05/25/2025 12:44 PM EDT us Richard Mcelroy COMIC ARTIST LAB BLOOD ORDERABLES Final Re sult Performing Organization Address City/[facility]/ZIP Co de Phone Number [facility] [address] [place] [address], [place] [phone] * Hemoglobin A1c (05/25/2025 11:45 AM EDT) [facility] Hemoglobin A1C 6.3 <6.5 % LAB CHEMISTRY METHOD 05/25/2025 5:35 PM EDT [facility] Mean Bld Glu Estim. 134 mg/dL LAB CHEMISTRY METHOD 05/25/2025 5:35 PM EDT [facility] Blood Venous blood specimen / Unknown Venipuncture / Unknown 05/25/2025 11:45 AM EDT 05/25/2025 12:45 PM EDT us Richard Mcelroy COMIC ARTIST LAB BLOOD ORDERABLES Final Re sult [facility] ([facility] [address] [place] [address], * SOREN SCREENING DIGITAL (12/01/2018 4:18 PM EDT) Anatomical Region Laterality Modality Mammography 12/01/2018 10:4 8 AM EDT Narrative 12/01/2018 4:18 PM EDT [facility] Diagnostic Imaging Department [address] [place] [address] Patient: NAHEED ARGUELLO Florinda /Age/Sex: 1955 - 63 - F Unit#: [id number] Location/Status: [facility] CLI Mnemonic/Ordering Site: [facility] Ordering Physician: SHAWNA AC MD [facility] Screening Digital - 12/01/18 - 1139 EXAM: [facility] Screening Digital EXAM DATE AND TIME: 12/01/2018 11:40 AM HISTORY: Screening. COMPARISON: 02/13/17, 04/09/13 TECHNIQUE: CC and MLO views of both breasts were obtained using full field digital mammography. Bilateral digital breast tomosynthesis was performed in the MLO projection. Computer aided detection with the iCAD SecondLook 7.2-H was employed. TISSUE DENSITY: a. The [...] Routine screening mammogram BILATERAL in 1 year. [address]14, 13325 3342F, 7025F Dictating Physician: URVASHI IBARRA MD Electronically Signed by: URVASHI IBARRA MD Dic Date/Time: 12/01/18 1552 Sign date/Time: 12/01/18 161 Procedure Note Urvashi Ibarra MD - 09/05/2022 [facility] Diagnostic Imaging Department [address] [place] [address] Patient: NAHEED ARGUELLO Florinda Helms./Age/Sex: 1955 - 63 - F Unit#: [id number] Location/Status: [facility] Mnemonic/Ordering Site: [facility] Ordering Physician: SHAWNA AC MD [facility] Screening Digital - 12/01/18 - 1139 EXAM: [facility] Screening Digital EXAM DATE AND TIME: 12/01/2018 11:40 AM HISTORY: Screening. COMPARISON: 02/13/17, 04/09/13 TECHNIQUE: CC and MLO views of both breasts were obtained using fullfield digital mammography. Bilateral digital breast tomosynthesis was performedin the MLO projection. Computer aided detection with the iDentiMob 7.2-fundfindras employed. TISSUE DENSITY: a. The breasts are [...] Routine screening mammogram BILATERAL in 1 year. [address]20, 94357 3342F, 7025F Dictating Physician: URVASHI IBARRA MD Electronically Signed by: URVASHI IBARRA MD Dic Date/Time: 12/01/18 1552 Sign date/Time: 12/01/18 1618 Shawna Ac MD IMG BI PROCEDURES Final Res ult from Last 3 Months or Most Recently Relevant to Health Maintenance Insurance MEDICARE [facility] Care Teams Developer Programmer Relationship Specialty Start Date End Date Aleksandr Ortiz MD [address] [place] [address] E [place] [id number] PCP - General 08/08/22
== END 2025-07-26 10:32 | disposition home or self-care (01) ==
LOC: HO.HGS 10:02
PROVIDERS: PCP Nurse Practitioner Acute Care; Visit Provider Physician Assistant Surgical
DX: M62.81 Muscle weakness (generalized) (principal)
CPT/HCPCS: 99024

== ENCOUNTER → 2025-07-26 10:02 | Outpatient (BNVA) | payer MEDICARE, BC, SELFPAY | PROVIDERS: PCP Nurse Practitioner Acute Care; Visit Provider Physician Assistant Surgical | DX: M62.81 Muscle weakness (generalized) (principal) | CPT/HCPCS: 99212 ==

== ENCOUNTER 2025-08-10 09:56 | Outpatient (AMB) | payer MEDICARE, BC, SELFPAY ==
--- OUTSIDE RECORDS SUMMARY | 2025-08-05 05:23 | XMS_ITS ---
Author Organization [facility] [address] Address [address] [place] [address] Care Team Providers Care Account Officer Name Role Phone RED BUTTS Unavailable [phone] REASON FOR VISIT [email or web address] Encounters Encounter Location Date Provider Diagnosis [facility] [address] [place] [address] 08/05/2025 RED BUTTS Type 2 diabetes mellitus with complication, unspecified whether fpc insulin use E11.8 and Hyperlipidemia, unspecified E78.5 Assessments Encounter Date Diagnosis (ICD Code) Assessment Notes Treatment Notes Treatment Clinical Notes Section Notes 08/05/2025 Type 2 diabetes mellitus with complication, unspecified whether fpc insulin use (ICD-10 - E11.8) 08/05/2025 Hyperlipidemia, unspecified (ICD-10 - E78.5) Plan Of Treatment Pending Test Test Name Order Date LIPID PANEL, STANDARD 08/05/2025 COMPREHENSIVE METABOLIC PANEL 08/05/2025 CBC (INCLUDES DIFF/PLT) 08/05/2025 HEMOGLOBIN A1c 08/05/2025 Next Appt Details Provider Name:RED BUTTS, 08/24/2025 11:00:00 AM, [address], [address], [place], [address], Progress Notes * JB ARGUELLO ADOB: 3 (70 yo F)Acc No.[id number]:08/05/2025 Patient: Chani MARCELIZABELLA MAZARIEGOSDESIRAE Neely :1955 A ge:70 Y S ex:Female Address:[address] [place] [address] Subjective: * Chief Complaints: * C [id number] Assessment: * Assessment: 1. T ype 2 diabetes mellitus with complication, unspecified whether longwall foreman insulin use - E11.8 2 . H yperlipidemia, unspecified - E78.5 Plan: * Treatment: 2. H yperlipidemia, unspecified L AB: LIPID PANEL, STANDARD L AB: COMPREHENSIVE METABOLIC PANEL L AB: CBC (INCLUDES DIFF/PLT) L AB: HEMOGLOBIN A1c * true * Date: Generated for Juana pablo/Angelina/Zachsmitting on: 10/10/2024 11:51 AM EST
--- NOTE | 2025-08-10 09:57 | A.OFFVIS_ITS ---
Vital Signs 08/10/25 09:58 Height 5 ft 6 in Weight 207 lb 3.752 oz BMI 33.4 BP 124/70 Blood Pressure Location Lt brachial Position Sitting Pulse 82 Pulse Source Pulse Oximeter Pulse Oximetry (%) 97 Oxygen Delivery Method Room Air Intake Visit Reasons: ILD/CPAP Continuous Inspector Watch Assembly Required: No Accompanied by: Self / Same As Patient Allergies azithromycin (From Zithromax) Allergy (Severe, Verified 08/10/25 10:01) Chest Pain ciprofloxacin (From Cipro) Allergy (Severe, Verified 08/10/25 10:01) Muscle Pain denosumab (From Prolia) Allergy (Intermediate, Verified 08/10/25 10:01) Muscle Pain rofecoxib (From Vioxx) Allergy (Verified 08/10/25 10:01) Unknown [id number]-[id number]-[id number] Reductase Inhibitor Allergy (Verified 08/10/25 10:01) Muscle cramps Iodinated Contrast Media Adverse Reaction (Intermediate, Verified 08/10/25 10:01) Unknown HPI Comments Details: The patient is a 70 year woman with a known history of lupus in addition to underlying pulmonary fibrosis. The patient did have a severe case of COVID requiring hospital level of care. CT scan during that admission back in 2020 demonstrated evidence of ground-glass opacities. Subsequent imaging studies demonstrated reticular changes consistent with pulmonary fibrosis. In the meantime the patient does follow-up the arthritis center for her connective tissue disease. He was diagnosed with lupus. Currently on hydrochloroquine. She continues to have significant musculoskeletal discomfort inflammatory a rthritis. The patient back in November 2023 develop worsening chest pain in addition to shortness of breath. She was brought to the [facility] ER where she was evaluated. She had a CTA that I personally reviewed. No evidence of any pulmonary emboli. Although the patient did have significant pneumonitis in addition to pleural thickening suggesting a pleuritis related to her underlying connective tissue disease. She responded to additional Medrol therapy. At this point the patient continues to have pleuritic chest pain and shortness of breath. Although better overall. She was hoping to start immunomodulator therapy such as mycophenolate. In the past she had been offered other immuno modulator such as methotrexate but she was concerned about the potential side effects. Explained to her the mycophenolate also has significant side effects although better option then being on the chronic steroids. Will have to monitor closely her laboratories while she is on it. Therefore she will have blood work before she begins it. Will start slowly and workup to the lowest most effective dose. In addition to that the patient will have additional blood work done to assess for other etiologies for the pneumonitis. The patient also should have a repeat CT scan of the chest to assess the response to the immunomodulator therapy. 03/03/2024 the patient is here for a pulmonary follow-up visit. Overall she is doing okay. She had a tough springtime with significant allergies although she has getting a little better at this time. She also started the mycophenolate. Did initially caused her to have significant fatigue. She did develop tolerance and she has been tolerating better. The patient is able to then increase it to twice a day causing her some headaches. However, she is also developed tolerance and she is doing better with it. We did review her recent CT scan of the chest and we did compare to her previous CTA. Significant improvement in the ground-glass opacity throughout. She still has some patchy areas but very minimal. She does have some scarring at the right base likely from further organization of the inflammatory process. Significantly better. At this point she is on adequate dose based on her response to therapy. The patient also continues have infections. She has had issues with sinuses and issues with her eyes with current infections and now immunocompromised on the immunomodulator therapy. We did check her IgG levels and she has a significantly low IgG level at this time. Therefore, I do believe that with the ongoing respiratory infections and other non respiratory infections treatment with IVIG will be very affecting beneficial. Will go ahead and start the process to have her start IVIG every 4 weeks. The patient also has been using her PAP therapy. I believe she uses the BiPAP. Is followed closely by her doctors in [place]. Recently was adjusted. When she had an overnight oximetry but was on room air so therefore not very helpful she did desaturate but again she was not on her PAP therapy. 04/14/2024 the patient is here for a follow-up visit. The patient has been struggling. . However, her insurance denied herShe had COVID about a month ago. Then after that she is having significant sinusitis. Significant good chest congestion and cough. She has had also postnasal drip. Cough is moderate severe. Sometimes is barky in nature. The patient does have hypogammaglobulinemia and does take immunosuppressant therapy so therefore she is at risk for worsening infectious process. We did try start her on IVIG but her insurance company required additional information. We did get titers of her pneumococcal vaccine. Appears that about half of the titers are low suggesting a ineffective response to the vaccine. In addition to that with the increasing infectious processes and respiratory illnesses she definitely will benefit from IVIG. The patient also has lupus. She has been on immunosuppressant therapy for lupus. This also flaring up may have been activator precipitated by her COVID infection. She will need additional steroids. The patient will follow-up with her sole molding machine operator in the next few weeks. She can have her levels checked again. In the meantime the patient will require antibiotics and also additional Medrol. In addition to that the patient mentioned that when she was initially evaluated for hypogammaglobulinemia she was found to have abnormal protein levels suggesting of multiple myeloma. Then, additional testing may less likely. She has not been evaluated for any blood dyscrasias. But with her immunocompromised condition, hypoglobulinemia chronic infections this should be further evaluated. Therefore will refer her to Hematology. 05/22/2024 the patient is here for pulmonary follow-up visit. She is still struggling with recurrent infections. She is developing again significant sinus congestion and sinus pressure. Will go ahead and start her on prophylactic antibiotics. She has significant hypogammaglobulinemia with decrease in her pneumococcal titers after appropriate vaccination. Therefore, she needs to start IVIG, however, her insurance denied her the much needed therapy. She is going to make her Appeal to the insurance company. Unfortunately, the insurance company also denied my ability to request an appeal. Although it is very clear the patient needs therapy and is better of time for the insurance company to approve it. The patient continues on the CellCept. She also continues on the Medrol. She will be starting Benlysta by her sole molding machine operator. Hopefully we can wean off some of the Medrol when she is on the Benlysta. From a interstitial lung disease he seems to be responding to the CellCept. She also did follow-up with Hematology. It appears that the blood work for evaluation of multiple myeloma is negative which is reassuring. However she will follow-up with Hematology for further input. 07/31/2024 the patient is here for a pulmonary follow-up visit. Overall she has other complaints now. She is having hard time walking and significant muscle discomfort. She did have her CPK checked and they were considered to be normal. She did look at her medications in the only medication she could find that could have that adverse effect would be the mycophenolate. In addition to that her liver function studies have been climbing. Therefore she will stop it. She has been under Benlysta that is been helping her arthritis. Will have to make sure that her pulmonary interstitial lung disease has not get worse but will go ahead and stop the mycophenolate right now. She has been on the Medrol. In addition to that she was having some increased palpitations in potential arrhythmias. Therefore, the azithromycin was stopped for safety reasons. Although she did feel better after stopping it. She is immunocompromised with significant hypogammaglobulinemia and therefore she needs to be on some prophyla ctic medication specially she is having some issues with cough right now chest congestion. Will go ahead and send a doxycycline which she tolerates. She will take it twice a day for a couple weeks and then decrease it to once a day. I which point we can consider keeping a prophylactic dose of 1 daily. She is currently requesting a a p.o. of her denial for her IVIG therapy for her significant hypogammaglobulinemia. We tested her pneumococcal titers which were significantly low and her IgG levels are also significantly low. The patient has had recurrent infections both upper and lower respiratory infections and she did requires antibiotics frequently. Will go ahead and request additional blood work right now and she will submit her p.o. to her insurance company so they can provide her the medicine that she needs. In the meantime she continues use oxygen. She does use [employer] for the [employer] company. She has a concentrator at home and she has a smaller POC unit that she uses with activity. She should continue with the oxygen therapy as it has been affecting beneficial and will go ahead and make sure that [employer] has a proper paperwork for her to continue to use their services. 10/22/2024 the patient is here for a pulmonary follow-up visit. Overall she is doing better. Her laboratories that she recently had are significantly improved. Where her inflammation is been decreasing significantly. The patient has been under Benlysta and also has been on the IVIG. She has a lot of complaints about the infusion. IgG is a difficult medication to tolerate at times. She needs to have it administer extremely slowly. Will make sure that the infusion center is following the protocols to minimize adverse effects. She is already premedicated which she has helpful. In the meantime she will continue with the therapy. Will plan to check an IgG trough after her 3rd dose to make sure that levels are adequate. She continues with respiratory therapy with good effect. One issue with the blood work demonstrated that she had an increased hemoglobin consistent with polycythemia. We did have her undergo an overnight oximetry on room air while wearing the CPAP. And she actually did well but she spent only 4.5 minutes below 88%. Therefore, not too significant. But, in view of her polycythemia it will be prudent to use the oxygen if she has it which she does. She can use it at 2 L oxygen per minute via the CPAP. CPAP therapy has been affecting beneficial. She does use it for more than 4 hours a night. Will plan to follow-up in therefore months. Which time will plan to repeat her CT scan of the chest and assess her interstitial lung disease. If any issues arise prior to that she will call for an earlier assessment. 01/07/2025 the patient is here for a sick visit. She started developing worsening cough chest congestion and started also developing some hemoptysis. Mild in severity but was bright red blood. Then became a little darker. She has not seen as much blood today. The patient is not on any blood thinners. Denies any pleuritic chest pain. She did get a port and has been getting her IVIG through her port. She gets it now every 2 weeks because of her significant adverse effects. She seems to be tolerating that better and does being managed now by Hematology. The patient is also following closely with the sole molding machine operator. She has been on chronic steroids. 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 Will go ahead and request blood work including a random cortisol level. On further questioning the patient has had blood clots in the past. Denies any chest pains and she is not taking any blood thinners right now. Denies any tachycardia and is not hypoxic. Therefore these symptoms are likely just from a lower respiratory infection so will go ahead and add an antibiotic, Augmentin to her regimen. If however her symptoms persist she can get blood work including a D-dimer so we can further consider the possibility of thromboembolic disease. 02/25/2025 the patient is here for pulmonary follow-up visit. The patient continues to have multiple complaints sitting chronic bronchitis chest congestion shortness of breath. In addition to that she complains of significant arthritic 80s and muscle discomfort and pain. She had been on Medrol for a prolonged period of time for or frequent dosages. Therefore adrenal insufficiency may be in the differential. I will have her check a cortisol level whenever able. Ideally in the morning. In the meantime the patient continues with the IVIG. She does have the port and this has been very effective for her. Blood pressure seems to be better now that she is taking a lower dose. We did review her CTA that she had back in January personally by me. Evidence of mosaic pattern and ground-glass opacities likely pulmonary vascular congestion though. It seems like she had increased cardiac size. Therefore diuresis was effective. She does benefit from further diuresis. She should not take the diuretics regularly although she should weigh herself as she has a scale at home and if she does gain couple positive 24 hours or 3 lb in 48 hours she should take a diuretic pill to minimize volume overload status. She will continue with respiratory inhalers I do believe that based on a chronic bronchitis and obstructive airway disease Daliresp will be very effective for and decreasing the chest congestion in the needs for steroids. Therefore she will start Daliresp 500 mcg dose. She will start every other day to tolerate the medicine better and then she can start taking it daily as tolerated. The patient follow-up in a couple months. If she has any issues prior to that she will call for an earlier assessment. 05/06/2025 the patient is here for pulmonary follow-up visit. She continues to struggle with all her elements. Significant arthritic 80s shortness of breath muscle discomfort muscle weakness. She is scheduled to see the general surgeon regarding a muscle biopsy. She continues to receive the IV IgE infusions and she seems to be tolerating those well through her Port-A-Cath. The patient continues to monitor closely her symptoms with the help of the sole molding machine operator. And she is still on the Benlysta for that. From a respiratory status she seems to be doing a candidate respiratory regimen continues the oxygen with good effect. She has been having some difficulties today overall with the shortness of breath chest tightness and myalgias and arthralgias. Will give her a dose of Solu-Medrol at this time. She will need to follow-up with Rheumatology for further interventions. 08/10/2025 the patient is here for pulmonary follow-up visit. Overall the patient is doing well from a respiratory status. She does have the oxygen available. She is going to start physical therapy soon and she is going to need the oxygen. She did undergo a biopsy of her muscles. Showed atrophy. Hopefully she is regaining some strength with the therapy. She continues with the IVIG therapy. She is following closely with Hematology for that. In addition to that she was given a small dose of Medrol since she does have the inflammatory muscle disease. She is going to follow closely with Rheumatology for that. She does tolerate the Daliresp. She is tolerating the full dose and continues with the current respiratory therapy with good effect. [facility] Medical History (Updated 08/02/25 @ 11:23 by Stefani Cunningham MD) Complication of general anesthesia Osteoarthritis PVCs (premature ventricular contractions) Fatty liver Edema COVID-19 Osteoporosis Brain aneurysm Anemia Thyroid disease Muscle weakness Colitis Irritable bowel syndrome Multiple sclerosis Raynaud's disease Lower abdominal pain Abnormal finding on EKG MAURO treated with BiPAP Hypogammaglobulinemia Asthma Lupus Pneumonitis Pulmonary fibrosis Surgical History (Updated 08/02/25 @ 11:23 by Stefani Cunningham MD) Hx of surgical procedure (07/09/25) History of tonsillectomy and adenoidectomy Hx of cholecystectomy Hx of hysterectomy History of carpal tunnel release H/O colonoscopy Family History Maternal Aunt Brain abscess Bone cancer Maternal Aunt Lung cancer Melanoma Maternal Uncle Melanoma Bone cancer Lung cancer Mother Thyroid cancer Uterine cancer Social History Household Members: Spouse Housing: House Do you presently have visiting nurse or other home services: No Alcohol intake: current Alcohol intake frequency: does not drink Comment: pt refusing alarms Patient Tobacco Use Status: Former Tobacco user Tobacco use type: Cigarette Years Smoked: 20 Years e-Cigarette/Vaping Use: Never Used service: No Current occupational status: retired Review of Systems Const Denies chills, Reports fatigue, Denies fever(s), Denies weight gain and Reports weight loss Eyes Denies change in vision ENT Denies dizziness Card Denies chest pain, Denies leg edema, Denies lightheadedness, Denies palpitations, Reports dyspnea on exertion, Denies orthopnea and Denies other Resp Reports cough and Reports dyspnea on exertion GI Denies hematochezia and Denies change in stool character Musc Denies abnormal gait, Reports muscle weakness, Denies numbness, Denies radiating pain into limb and Denies tingling Skin/Breast Denies rash Neuro Denies abnormal gait, Denies dizziness, Denies numbness and Denies tingling Endo Reports fatigue and Denies palpitations Sheldon/Lymph Denies easy bleeding Physical Exam Vital Signs: Last Vital Signs Pulse 82 08/10/25 09:58 BP 124/70 08/10/25 09:58 Pulse Ox 97 08/10/25 09:58 Oxygen Delivery Method Room Air 08/10/25 09:58 BMI result Body Mass Index 33.4 Const General: comfortable Orientation/consciousness: patient oriented x3 HEENT Head: Yes normocephalic Neck Neck: Yes supple Chest Chest palpation & inspection: normal inspection of the chest Resp Effort & Inspection: normal respiratory effort Auscultation: no crackles and diminished lung sounds Cardio Heart sounds: S1 normal heart sound present and S2 normal heart sound present GI Palpation (GI): Soft to palpation Skin General skin exam: no rashes or lesions noted Neuro General: patient oriented x3 Extrem General: Yes edema Assessment & Plan Assessment & Plan (1) Pulmonary fibrosis: Code(s): J84.10 - Pulmonary fibrosis, unspecified Category: Medical (2) Pneumonitis: Comment: better Code(s): J98.4 - Other disorders of lung Category: Medical (3) Lupus: Code(s): M32.9 - Systemic lupus erythematosus, unspecified Category: Medical (4) Asthma: Code(s): J45.909 - Unspecified asthma, uncomplicated Category: Medical Qualifiers: Asthma complication type: uncomplicated Asthma persistence: intermittent Asthma severity: mild Qualified Code(s): J45.20 - Mild intermittent asthma, uncomplicated (5) Hypogammaglobulinemia: Code(s): D80.1 - Nonfamilial hypogammaglobulinemia Category: Medical (6) MAURO treated with BiPAP: Code(s): G47.33 - Obstructive sleep apnea (adult) (pediatric) Category: Medical (7) Colitis: Code(s): K52.9 - Noninfective gastroenteritis and colitis, unspecified Category: Medical Plan continue Daliresp 500mcg continue Wixela, increase 500/50 continue lasix, monitor weight daily CAROL as needed continue singulair continue IVIG via port as per Hematology continue BIPAP ipratropium nasal spray, monitor for visual changes or pressures Continue oxygen therapy. Patient uses imaging. 2 L pulse with activity and 2 L at nighttime with PAP therapy F/U 2-3 months Medications: New roflumilast (Daliresp) 500 mcg PO DAILY 90 tabs 3RF 90 days ipratropium bromide administer into each nostril 2 sprays intranasal TID PRN 15 mL 6RF allergy symptoms Changed From levalbuterol tartrate 45 mcg/actuation 1 - 2 puffs inhalation Q4H PRN wheezing To levalbuterol tartrate 45 mcg/actuation 2 puffs inhalation Q4H PRN 15 grams 11RF wheezing 30 days Coding Level of Care Code Complex visit Add On G2211 Diagnoses Pulmonary fibrosis J84.10 Pneumonitis J98.4 Lupus M32.9 Mild intermittent asthma without complication J45.20 Asthma complication type: uncomplicated Asthma persistence: intermittent Asthma severity: mild Hypogammaglobulinemia D80.1 MAURO treated with BiPAP G47.33 Colitis K52.9 Time Spent (min) 18
[2025-08-10 09:58] VITALS: BP 124/70; PULSE 82; O2SAT 97; BMI 33.4
--- OUTSIDE RECORDS SUMMARY | 2025-08-10 11:52 | XMS_ITS | Clinical Summary ---
Author Organization [address] [place] [address] [place] [phone] Phone Care Team Providers Care Information Assurance Manager Name Role Phone Aleksandr Ortiz MD Primary Care Provider [phone] Surgical History Surgery Date Site/Laterality Comments CHOLECYSTECTOMY [...] Comments: Jayesh. Managed by Dr Enriqueta Gabriel trimming cutter in [place] Substance dependence, contin uous ([facility] V24, [facility] V28) 12/10/2017 DX:Substance dependence, co ntinuous ([facility]); COMMENT: Opioids Paresthesia of both legs 06/24/2017 DX:Pare sthesia of both legs Vitamin D deficiency 11/11/2017 DX:Vitamin D deficiency Systemic lupus erythematosus ([facility] V24, [facility] V28) 05/05/2018 DX:Systemic lupus erythemato erica ([facility]); COMMENT: Comments: Was seeing Dr oMreno Raynaud's disease 02/11/2018 DX:Raynaud's d isease 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 DX:Proctalgia f ugax Osteoporosis 12/17/2016 DX:Osteoporosis; COMMENT: Comments: Has Vitamin D Deficieny and is followed by Enriqueta Gabriel MD [place] Major depression, recurrent ([facility] V24) 07/11/2011 DX:Major depression, recurre nt ([facility]) Nephrolithiasis 01/25/2010 DX:Nephrolithias is Lumbar degenerative disc disease 06/13/2016 DX:Lumbar degenerative disc disease Irritable bowel syndrome 01/06/2013 DX:Irri table bowel syndrome; COMMENT: Comments: diagnosed by Dr Decker gastroenterology [facility] colonoscopy negative jul 05 2003 for cancer Hypothyroidism 11/11/2017 DX:Hypothyroidis m Hypogammaglobulinemia ([facility] V24) 01/25/2010 DX:Hypogammaglobulinemia ([facility]); COMMENT: Comments: Was seen by surface hydrologist in 2001 who ruled out multiple myeloma [...] 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 Residential Green Building Designer Dr Gomez [phone]. Diabetes mellitus type 2, un complicated ([facility] V24, [facility] V28) 05/05/2018 DX:Diabetes mellitus type 2 , uncomplicated ([facility]) History of Lyme disease 10/13/2018 [...] Serum <1:10 <1:10 06/01/2025 12:26 AM EDT [facility] Comment: Clinical Interpretation: MuSK Antibody, [...] developed and its performance characteristics determined by [facility] It has not been cleared or approved by the U.S. Food and Drug Administration. This test was performed in a CLIA-certified laboratory and is intended for clinical purposes. Performed By: [facility] [address] [place] [id number] Technical Publications Writer: Raffi Navas MD, PhD CLIA Number: [id number] MuSK Ab IgG CBA IFA Titer, Serum TNP 06/01/2025 12:26 AM EDT [facility] Blood Venous blood specimen / Unknown Venipuncture / Unknown 05/25/2025 11:45 AM EDT 05/25/2025 12:44 PM EDT Richard Mcelroy TABLE GAMES DUAL RATE SUPERVISOR LAB BLOOD ORDERABLES Final Re sult Performing Organization Address [facility] Co de Phone Number [facility] [address] [place] [address] * Acetylcholine receptor, binding (05/25/2025 11:45 AM EDT) Acetylcholine Receptor Binding Antibody <0.30 nmol/L 06/01/2025 7:37 AM EDT [facility] Comment: Reference Ranges for Acetylcholine Receptor Binding Antibody: Negative: < or =0.30 nmol/L Equivocal: 0.31-0.49 nmol/L Positive: > or =0.50 nmol/L Test Performed at: [facility] [address] [id number] Tim Lubin MD, PhD, ALEX Blood Venous blood specimen / Unknown Venipuncture / Unknown 05/25/2025 11:45 AM EDT 05/25/2025 12:44 PM EDT Richard Mcelroy TABLE GAMES DUAL RATE SUPERVISOR LAB BLOOD ORDERABLES Final Re sult Performing Organization Address [facility] Co de Phone Number [facility] [address] [place] [address] * (ABNORMAL) Thyroid stimulating hormone (05/25/2025 11:45 AM EDT) Pathologist [facility] TSH 0.33(L) 0.40 - 4.00 mcIU/mL LAB CHEMISTRY METHOD 05/25/2025 1:46 PM EDT [facility] Blood Venous blood specimen / Unknown Venipuncture / Unknown 05/25/2025 11:45 AM EDT 05/25/2025 12:44 PM EDT Richard Mcelroy NP LAB BLOOD ORDERABLES Final Re sult [facility] [address] [place] [address], [place] [phone] * (ABNORMAL) Thyroxine total (05/25/2025 11:45 AM EDT) Pathologist [facility] T4, Total 12.8(H) 4.5 - 10.9 mcg/dL LAB CHEMISTRY METHOD 05/25/2025 2:15 PM EDT [facility] Blood Venous blood specimen / Unknown Venipuncture / Unknown 05/25/2025 11:45 AM EDT 05/25/2025 12:44 PM EDT us Richard Mcelroy TABLE GAMES DUAL RATE SUPERVISOR LAB BLOOD ORDERABLES Final Re sult Performing Organization Address City/[facility]/ZIP Co de Phone Number [facility] [address] [place] [address], [place] [phone] * Hemoglobin A1c (05/25/2025 11:45 AM EDT) [facility] Hemoglobin A1C 6.3 <6.5 % LAB CHEMISTRY METHOD 05/25/2025 5:35 PM EDT [facility] Mean Bld Glu Estim. 134 mg/dL LAB CHEMISTRY METHOD 05/25/2025 5:35 PM EDT [facility] Blood Venous blood specimen / Unknown Venipuncture / Unknown 05/25/2025 11:45 AM EDT 05/25/2025 12:45 PM EDT us Richard Mcelroy TABLE GAMES DUAL RATE SUPERVISOR LAB BLOOD ORDERABLES Final Re sult [facility] H[facility] LAB [address] [place] [address], * SOREN SCREENING DIGITAL (12/01/2018 4:18 PM EDT) Anatomical Region Laterality Modality Mammography 12/01/2018 10:4 8 AM EDT Narrative 12/01/2018 4:18 PM EDT [facility] Diagnostic Imaging Department [address] [place] [address] Patient: NAHEED ARGUELLO Florinda /Age/Sex: 1955 - 63 - F Unit#: [id number] Location/Status: [facility] CLI Mnemonic/Ordering Site: [facility] Ordering Physician: SHAWNA AC MD [facility] Screening [...] Routine screening mammogram BILATERAL in 1 year. [id number], [id number] 3342F, 7025F Dictating Physician: URVASHI IBARRA MD Electronically Signed by: URVASHI IBARRA MD Dic Date/Time: 12/01/18 1552 Sign date/Time: 12/01/18 1617 Procedure Note Urvashi Ibarra MD - 09/05/2022 [facility] Diagnostic Imaging Department [address] [place] [address] Patient: NAHEED ARGUELLO Florinda Helms./Age/Sex: 1955 - 63 - F Unit#: [id number] Location/Status: [facility] Mnemonic/Ordering Site: [facility] Ordering Physician: SHAWNA AC MD [facility] Screening Digital - 12/01/18 - 1139 EXAM: [facility] Screening Digital EXAM DATE AND TIME: 12/01/2018 11:40 AM HISTORY: Screening. COMPARISON: 02/13/17, 04/09/13 TECHNIQUE: CC and MLO views of both breasts were obtained using fullfield digital mammography. Bilateral digital breast tomosynthesis was performedin the MLO projection. Computer aided detection with the [employer] employed. TISSUE DENSITY: a. The breasts are [...] Routine screening mammogram BILATERAL in 1 year. [id number], 30437 3342F, 7025F Dictating Physician: URVASHI IBARRA MD Electronically Signed by: URVASHI IBARRA MD Dic Date/Time: 12/01/18 1552 Sign date/Time: 12/01/18 1618 Shwana Ac MD IMG BI PROCEDURES Final Res ult from Last 3 Months or Most Recently Relevant to Health Maintenance Insurance MEDICARE [facility] Care Teams Information Assurance Manager Relationship Specialty Start Date End Date Aleksandr Ortiz MD [address] [place] [address] E [place] [id number] PCP - General 08/08/22
--- OUTSIDE RECORDS SUMMARY | 2025-08-10 11:52 | XMS_ITS | Patient Health Record ---
Author Organization [facility] [address] Address [address] [place] [address] Care Team Providers Care Intervention Nurse Name Role Phone RED BUTTS Unavailable [phone] SHARAN JONES Unavailable [phone] Allergies Allergen (clinical drug ingredient) Drug/Non Drug Allergy documented on EMR Reaction Allergy Type Onset Date Status Substance with 9-nqnnurs-3-methylgl utaryl-coenzyme A reductase inhibitor mechanism of action (substance) statins (uncoded) Unknown Allergy Active denosumab Prolia stomach upset Drug Allergy Act jere azithromycin Azithromycin Unknown Drug Allergy A ctive ciprofloxacin Ciprofloxacin Unknown Drug Allergy Active Results Component Value Reference Range Flag Notes Thyroxine (T4)-[id number] Reviewed date:09/30/2024 08:20:48 AM Interpretation: Performing Lab:[facility], [address] [place] [address], Phone - [phone], Director - Johny Notes/Report: Thyroxine (T4) 10.6 4.5-12.0 ug/dL Hemoglobin [id number] Reviewed date:09/30/2024 08:20:48 AM Interpretation: Performing Lab:[facility], [address] [place] [address], Phone - [phone], Director - MDLeoniladry Notes/Report: Hemoglobin A1c 9.1 4.8-5.6 % H . Prediabetes: 5.7 - 6.4 Diabetes: >6.4 Glycemic control for adults with diabetes: <7.0 TSH-[id number] Reviewed date:09/30/2024 08:20:48 AM Interpretation: Performing Lab:[facility], [address] [place] [address], Phone - [phone], Director - Tessadrmisael Notes/Report: TSH 6.050 0.450-4.500 uIU/mL H EKG (Not yet reviewed by pro vider) Interpretation: Performing Lab: Notes/Report: ECGDiastolicBP 0 ECGHr 70 ECGPRInterval 130 ECGPWaveAxis -18 ECGQRSDuration 96 ECGQrsWaveAxis -11 ECGQTcInterval 415 ECGQTInterval 398 ECGSystolicBP 0 ECGTWaveAxis 17 RR_DiastolicBP 0 RR_MaxRRInterval 0 RR_MeanHR 0 RR_MeanRRInterval 0 RR_MinRRInterval 0 RR_NumBeats 0 RR_NumNormalBeats 0 RR_SystolicBP 0 Thyroxine (T4)-[id number] Reviewed date:10/21/2024 08:32:30 AM Interpretation: Performing Lab:[facility] [address] [place] [address], Phone - [phone], Director Jake May Notes/Report: Thyroxine (T4) 11.2 4.5-12.0 ug/dL Hemoglobin [id number] Reviewed date:10/21/2024 08:32:30 AM Interpretation: Performing Lab:[facility] [address] [place] [address], Phone - [phone], Director Jake May Notes/Report: Hemoglobin A1c 8.9 4.8-5.6 % H . Prediabetes: 5.7 - 6.4 Diabetes: >6.4 Glycemic control for adults with diabetes: <7.0 TSH-[id number] Reviewed date:10/21/2024 08:32:30 AM Interpretation: Performing Lab:[facility] [address] [place] [address], Phone - [phone], Director Jake May Notes/Report: TSH 2.810 0.450-4.500 uIU/mL Thyroxine (T4)-[id number] Reviewed date:02/13/2025 02:15:55 PM Interpretation: Performing Lab:[facility] [address] [place] [address], Phone - [phone], Director Jake May Notes/Report: Thyroxine (T4) 9.4 4.5-12.0 ug/dL Hemoglobin [id number] Reviewed date:02/13/2025 02:15:55 PM Interpretation: Performing Lab:[facility] [address] [place] [address], Phone - [phone], Director Jake Zaratedry Notes/Report: Hemoglobin A1c 7.1 4.8-5.6 % H . Prediabetes: 5.7 - 6.4 Diabetes: >6.4 Glycemic control for adults with diabetes: <7.0 Urinalysis, Complete-[id number] Reviewed date:02/13/2025 02:15:55 PM Interpretation: Performing Lab:[facility], [address] [place] [address], Phone - [phone], Director - Lalo Notes/Report: Specific [place] 1.025 1.005-1.030 pH 5.0 5.0-7.5 Urine-Color Yellow Yellow Appearance Cloudy Clear A WBC Esterase Negative Negative Protein 1+ Negative/Trace A Glucose Negative Negative Ketones Negative Negative Occult Blood Negative Negative Bilirubin Negative Negative Urobilinogen,Semi-Qn 0.2 0.2-1.0 mg/dL Nitrite, Urine Negative Negative Microscopic Examination See below: M icroscopic was indicated and was performed. WBC 0-5 0 - 5 /hpf RBC None seen 0 - 2 /hpf Epithelial Cells (non renal) >10 0 - 10 /hpf A Casts None seen None seen /lpf Crystals Present N/A A Crystal Type Calcium Oxalate N/A Bacteria None seen None seen/Few CBC With Differential/Platel et-[id number] Reviewed date:02/13/2025 02:15:55 PM Interpretation: Performing Lab:[facility], [address] [place] [address], Phone - [phone], Director - Lalo Notes/Report: WBC 10.4 3.4-10.8 x10E3/uL RBC 4.90 3.77-5.28 x10E6/uL Hemoglobin 13.1 11.1-15.9 g/dL Hematocrit 40.9 34.0-46.6 % MCV 84 79-97 fL MCH 26.7 26.6-33.0 pg MCHC 32.0 31.5-35.7 g/dL RDW 15.7 11.7-15.4 % H Platelets 215 150-450 x10E3/uL Neutrophils 65 Not [...] % Immature Grans (Abs) 0.1 0.0-0.1 x10E3/uL Vitamin D, 05-Daliwzc-[id number] Reviewed date:02/13/2025 02:15:55 PM Interpretation: Performing Lab:[facility], [address] [place] [address], Phone - [phone], Director - Lalo Notes/Report: Vitamin D, 25-Hydroxy 95.2 30.0-100.0 ng/mL Vitamin D deficiency has been defined by the [place] [employer] and an Endocrine Society practice guideline as a level of serum 25-OH vitamin D less than 20 ng/mL (1,2). The Endocrine Society went on to further define vitamin D insufficiency as a level between 21 and 29 ng/mL (2). 1. IOM ([place] [employer]). 2010. Dietary reference intakes for calcium and D. [place]: The National Academies Press. 2. Rigoberto MF, Russel NC, Chance SIERRA, et al. Evaluation, treatment, and prevention of vitamin D deficiency: an Endocrine Society clinical practice guideline. JCEM. 2010; 96(7):1911-30. Lipid Panel-000455 Reviewed date:02/13/2025 02:15:55 PM Interpretation: Performing Lab:[facility], [address] [place] [address], Phone - [phone], Director - Johny Notes/Report: Cholesterol, Total 191 100-199 mg/dL Triglycerides 279 0-149 mg/dL H HDL Cholesterol 36 >39 mg/dL L VLDL Cholesterol Stanford 48 5-40 mg/dL H LDL Chol Calc (NIH) 107 0-99 mg/dL H Comp. Metabolic Panel (14)-3 Reviewed date:02/13/2025 02:15:55 PM Interpretation: Performing Lab:[facility], [address] [place] [address], [place], Phone - [phone], Director - Lalo Notes/Report: Glucose 117 70-99 mg/dL H BUN 10 8-27 mg/dL Creatinine 0.76 0.57-1.00 mg/dL eGFR 84 >59 mL/min/1.73 BUN/Creatinine Ratio 13 12-28 Sodium 143 134-144 mmol/L Potassium 4.1 3.5-5.2 mmol/L Chloride 108 96-106 mmol/L H Carbon Dioxide, Total 21 20-29 mmol/L Calcium 9.4 8.7-10.3 mg/dL Protein, Total 6.3 6.0-8.5 g/dL Albumin 3.8 3.8-4.8 g/dL Globulin, Total 2.5 1.5-4.5 g/dL Bilirubin, Total 0.2 0.0-1.2 mg/dL Alkaline Phosphatase 85 44-121 IU/L AST (SGOT) 17 0-40 IU/L ALT (SGPT) 20 0-32 IU/L TSH Rfx on Abnormal to Free [id number] Reviewed date:02/13/2025 02:15:55 PM Interpretation: Performing Lab:[facility], [address] [place] [address], [place], Phone - [phone], Director - Lalo Notes/Report: TSH 6.190 0.450-4.500 uIU/mL H T4,Free (Direct) 1.56 0.82-1.77 ng/dL THYROID STIMULATING HORMONE Reviewed date:05/25/2025 02:39:16 PM Interpretation: Performing Lab: Notes/Report: TSH 0.33 0.40-4.00 mcIU/mL L THYROXINE TOTAL Reviewed date:05/27/2025 01:44:18 PM Interpretation: Performing Lab: Notes/Report: T4, Total 12.8 4.5-10.9 mcg/dL H MUSK ANTIBODY Reviewed date:06/01/2025 07:57:41 AM Interpretation: Performing Lab: Notes/Report: MuSK Ab IgG CBA IFA Screen, Serum <1:10 <1:10 Clinical Interpretation: MuSK Antibody, IgG is not [...] developed and its performance characteristics determined by [facility]. It has not been cleared or approved by the U.S. Food and Drug Administration. This test was performed in a CLIA-certified laboratory and is intended for clinical purposes. Performed By: [facility] [address] [place] [id number] Freight Checker: Raffi Navas MD, PhD CLIA Number: [id number] MuSK Ab IgG CBA IFA Titer, Serum TNP ACETYLCHOLINE RECEPTOR, BIND ING Reviewed date:06/01/2025 07:57:41 AM Interpretation: Performing Lab: Notes/Report: Acetylcholine Receptor Binding Antibody <0.30 Reference Ranges for Acetylcholine Receptor Binding Antibody: Negative: < or =0.30 nmol/L Equivocal: 0.31-0.49 nmol/L Positive: > or =0.50 nmol/L Test Performed at: [facility] [address] [address] Tim Lubin MD, PhD, ALEX HEMOGLOBIN A1C Reviewed date:05/26/2025 07:57:03 AM Interpretation: Performing Lab: Notes/Report: Hemoglobin A1C 6.3 <6.5 % Mean Bld Glu Estim. 134 Reason For Referral Reason [facility] Diagnosis 1 Chronic stasis derma titis (I87.2) Referral Organization [facility] [address] Referring Provider First Name RED Referring Provider Last Name BECKIE Referring Provider Speciality Internal M edicine Referred Provider undefined Referred Provider Specialty Vascular Joao meaghan General Notes Pam Valadez 08:57:33 AM > Referral form faxed to [phone]. Clinical Notes Maria Guadalupe Robert 02:56:33 PM >, Maria Guadalupe Roebrt 01/19/2025 02:09:58 PM > The patient was seen on 01/07 and have a follow up appointment on 03/10 Referral Priority Routine Reason echocardiogram Diagnosis 1 Cardiomegaly (I51.7) Referral Organization [facility] Referring Provider First Name SHARAN Referring Provider Last Name KAREN Referring Provider Speciality Internal M edicine Referred Provider Specialty Cardiology General Notes Danny Cheyanne 02/25 02:51:53 PM >faxed to [facility] at fax #[phone], phone # [phone] Clinical Notes Delgado, Cheyanne 02/25 03:00:46 PM > Jakob mane Jabariflower 03/10/2025 08:43:34 AM > The patient was seen on 02/26 and has a follow up on 03/18 at 2 pm Referral Priority Routine Medications Medication SIG (Take, Route, Frequency, Duration) Notes Start Date End Date Status Synthroid 175 MCG Tablet 1 tablet in the morning on an empty stomach Orally Once a day; Duration: 90 days Active Berberine Complex Ac tive Mounjaro 10 MG/0.5ML Solution Auto-injector 10mg Subcutaneous weekly; Duration: 90 days 05/25/2025 Active Zinc 100 MG Tablet 1 tablet Orally Once a day Active Levalbuterol Tartrate 45 MCG/ACT Aerosol 1-2 puffs as needed Inhalation every 4 hrs; Duration: 30 days Active Fioricet 50-300-40 MG Capsule 1 capsule as needed Orally once a day; Duration: 90 days Active Calcium 500 MG Tablet 1 tablet with meal s Orally Twice a day Active CoQ-10 100 MG Capsule as directed Orally Active metFORMIN HCl ER 500 MG Tablet Extended Release 24 Hour 1 tablet with evening meal Orally Once a day; Duration: 90 days 08/04/2024 Active Mounjaro 7.5 MG/0.5ML Solution Auto-injector INJECT 7.5 MG (0.5 ML) UNDER THE SKIN ONCE WEEKLY; Duration: 28 days Active Sodium Chloride 3 % Nebulization Solution 4 mL Inhalation Twice a day Active ZyrTEC Allergy 10 MG Tablet 1 tablet Ora lly Once a day Active Iqmozyfkiy-GYAZ-Rhvimxvv 50-300-40 MG Capsule TAKE 1 CAPSULE ONCE DAILY NEEDED; Duration: 90 Active Losartan Potassium 25 MG Tablet TAKE 1 TABLET DAILY; Duration: 90 Active Omeprazole 40 MG Capsule Delayed Release 1 capsule 30 minutes before morning meal Orally Once a day; Duration: 90 days 02/16/2025 Active Metoprolol Succinate ER 50 MG Tablet Extended Release 24 Hour TAKE ONE TABLET BY MOUTH EVERY DAY; Duration: 90 Active Plaquenil 200 MG Tablet 1 tablet Orally daily Active Incruse Ellipta 62.5 MCG/ACT Aerosol Powder Breath Activated INHALE 1 PUFF DAILY Inhalation; Duration: 30 Days Active Gammagard 20 GM/200ML Solution Injection; Duration: 28 Days Active Roflumilast 500 MCG Tablet 1 tablet Oral ly Once a day Active Dilt-XR 120 MG Capsule Extended Release 24 Hour TAKE ONE CAPSULE BY MOUTH EVERY DAY Oral; Duration: 90 Days Active traMADol HCl 50 MG Tablet 1 tablet as ne eded for pain Orally every 6 hours; Duration: 30 days 02/16/2025 Active Incruse Ellipta 62.5 MCG/ACT Aerosol Powder Breath Activated Inhalation; Duration: 30 Days Active Magnesium 400 MG Capsule as directed Orally Active Vitamin D 25 MCG (1000 UT) Tablet 1 tablet Orally Once a day Active Probiotic - Tablet Delayed Release as directed Orally Active Levothyroxine Sodium 175 MCG Tablet 1 tablet in the morning on an empty stomach Orally every other day; Duration: 90 days 09/03/2024 Active Vitamin C 1000 MG Tablet 1 tablet Orally Once a day Active Immunizations Vaccine Route Administration Date Status Comme nts Influenza, high dose seasonal IM Intramuscular 06/18/2023 Administered Pneumococcal polysaccharide PPV23 IM Intramuscular 06/18/2023 Administered Social History Tobacco Use: Social History Observation Description Date Details (start date - stop date) Former Smoker NA - NA Social History Tobacco Use: Social Info Question Answer Notes Tobacco Use/Smoking Are you a former smoker Problems Problem Type SNOMED Code ICD Code Onset Dates Problem Status W/U Status Risk Notes Problem Hypothyroidism (79514986) Hypothyroidism, unspecified (E03.9) Active confirmed Problem Obesity (607818579) Other obesit y (E66.8) Active confirmed Problem Mixed hyperlipidemia (463291403) Mixed hyperlipidemia (E78.2) Active confirmed Problem Hyperlipidemia (88315959) Hyperlipidemia, unspecified (E78.5) Active confirmed Problem Chronic pain (38506726) Other chronic pain (G89.29) Active confirmed Problem Chronic pain syndrom e (277202951) Chronic pain syndrome (G89.4) Active confirmed Problem Cardiomegaly (3727426) Cardiomegaly (I51.7) Acti ve confirmed Problem Systemic lupus erythematosus (24134403) Systemic lupus erythematosus, unspecified (M32.9) Active confirmed Problem Age-related osteoporosis (675318784) Age-related osteoporosis without current pathological fracture (M81.0) Active confirmed Problem Lipid screening (748039954) Encounter for screening for lipoid disorders (Z13.220) Active confirmed Problem Body mass index 35.0 0 to 39.99 (708762598997658) Body mass index (BMI) 38.0-38.9, adult (Z68.38) Active confirmed Problem Body mass index 35.0 0 to 39.99 (835991996138604) Body mass index (BMI) 39.0-39.9, adult (Z68.39) Active confirmed Problem Chronic idiopathic constipation (34463661) Chronic idiopathic constipation (K59.04) Active confirmed Problem Morbid obesity (641294506) Morbid obesity (E66.01) Active confirmed Problem Disorder due to type 2 diabetes mellitus (758769089) Type 2 diabetes mellitus with complication, unspecified whether termite treater insulin use (E11.8) Active confirmed Problem Acquired hypothyroidism (239333974) Acquired hypothyroidism (E03.9) Active confirmed Problem Adult health examination (118957805) Adult general medical exam (Z00.00) Active confirmed Problem Vitamin D deficiency (03933143) Vitamin D deficiency (E55.9) Active confirmed Problem Essential hypertensi on (55987661) Hypertension, unspecified type (I10) Active confirmed Problem Type II diabetes mellitus without complication (241110164) Type 2 diabetes mellitus without complication, without long-term current use of insulin (E11.9) Active confirmed Problem Obesity (178354794) Obesity (BMI 30-39.9) (E66.9) Active confirmed Problem Progressive fibrosin g interstitial lung disease (disorder) (641289883121904) Interstitial lung disease with progressive fibrotic phenotype in diseases classified elsewhere (J84.170) Active confirmed Problem Obese class II (896237229297822) BMI 35.0-35.9,adult (Z68.35) Active confirmed Problem Pulmonary fibrosis (84185254) Pulmonary fibrosis (J84.10) Active confirmed Problem Body mass index 40+ - severely obese (037448940) Body mass index [BMI] 40.0-44.9, adult (Z68.41) Active confirmed Problem Chronic venous insufficiency (60141539) Chronic venous insufficiency (I87.2) Active confirmed Problem Avitaminosis D (33355806) Avitaminosis D (E55.9) Active confirmed Problem Abnormal metabolic state due to diabetes mellitus (954356034) Abnormal metabolic state due to diabetes mellitus (E11.9) Active confirmed Problem Chronic interstitial cystitis (242181780) Interstitial cystitis (N30.10) Active confirmed Problem Hypogammaglobulinemi a (674679570) 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) Active confirmed Problem Other osteoporos is with current pathological fracture with routine healing, subsequent encounter (M80.80XD) Active confirmed Problem Peripheral venous insufficiency (75213924) Chronic stasis dermatitis (I87.2) Active confirmed Problem Monoclonal gammopath y of uncertain significance (disorder) (390474658) MGUS (monoclonal gammopathy of unknown significance) (D47.2) Active confirmed Problem Cardiomegaly (2919752) Mild card iomegaly (I51.7) Active confirmed Vital Signs Heart Rate 87 /min 05/25/2025 Oximetry 98 % 06/19/2025 Blood pressure diastolic 80 mm Hg 06/19/2025 Height 66 in 06/19/2025 Blood pressure systolic 126 mm Hg 06/19/2025 Weight 224 lbs 06/19/2025 BMI 36.15 kg/m2 06/19/2025 Encounters Encounter Location Date Provider Diagnosis [facility] [address] [address] 09/15/2024 RED BORHOT Atypical chest pain R07.89 ; Bilateral lower extremity edema R60.0 ; Chronic venous insufficiency I87.2 ; Acquired hypothyroidism E03.9 ; Abnormal metabolic state due to diabetes mellitus E11.9 and Hypothyroidism, unspecified E03.9 [facility] [address] [address] 10/06/2024 [place]ORH[place] Atypical chest pain R07.89 ; Acquired hypothyroidism E03.9 ; Bilateral lower extremity edema R60.0 ; Chronic venous insufficiency I87.2 ; Abnormal metabolic state due to diabetes mellitus E11.9 ; Pulmonary fibrosis J84.10 and Hypothyroidism, unspecified E03.9 [facility] [address] [address] 12/11/2024 [place]HOT Atypical chest pain R07.89 ; Acquired hypothyroidism E03.9 ; Bilateral lower extremity edema R60.0 ; Chronic venous insufficiency I87.2 ; Abnormal metabolic state due to diabetes mellitus E11.9 ; Pulmonary fibrosis J84.10 ; Hypothyroidism, unspecified E03.9 and Chronic pain syndrome G89.4 [facility] [address] [address] 02/15/2025 RED BUTTS Annual physical exam Z00.00 [...] findings Z01.30 and Mild cardiomegaly I51.[address] [facility] [address] [place] [address] 05/08/2025 RED BUTTS Acute abdominal pain R10.9 [facility] [address] [address] 05/25/2025 RED BUTTS MGUS (monoclonal bernadine mopathy of unknown significance) D47.2 ; Hypogammaglobulinemia D80.1 ; Acquired hypothyroidism E03.9 ; Bilateral lower extremity edema R60.0 ; Chronic venous insufficiency I87.2 ; Pulmonary fibrosis J84.10 ; Hypothyroidism, unspecified E03.9 ; Chronic pain syndrome G89.4 ; Encounter for examination of blood pressure without abnormal findings Z01.30 ; Mild cardiomegaly I51.7 ; Myalgia, multiple sites M79.18 and Type 2 diabetes mellitus without complication, without long-term current use of insulin E11.[address] [facility] [address] [place] [address] 06/19/2025 REDJOSE L ORTEGAT MGUS (monoclonal bernadine mopathy of unknown significance) D47.2 ; Preoperative clearance Z01.818 ; Hypogammaglobulinemia D80.1 ; Acquired hypothyroidism E03.9 ; Bilateral lower extremity edema R60.0 ; Chronic venous insufficiency I87.2 ; Pulmonary fibrosis J84.10 ; Hypothyroidism, unspecified E03.9 ; Chronic pain syndrome G89.4 ; Encounter for examination of blood pressure without abnormal findings Z01.30 ; Mild cardiomegaly I51.7 ; Myalgia, multiple sites M79.18 and Type 2 diabetes mellitus without complication, without long-term current use of insulin E11.[address] [facility] [address] [place] [address] 09/01/2024 TALAL JONES [facility] [address] [place] [address] 09/14/2024 [place] [facility] [address] [place] [address] 09/17/2024 [place] Atypical chest pain R07.89 [facility] [address] [place] [address] 09/18/2024 [place] Atypical chest pain R07.[address] [facility] [address] [place] [address] 09/28/2024 TALAL JONES [facility] [address] [place] [address] 10/14/2024 [place] [facility] [address] [place] [address] 10/15/2024 [place] [facility] [address] [place] [address] 10/15/2024 [place] [facility] [address] [place] [address] 10/22/2024 [place] [facility] [address] [place] [address] 12/24/2024 [place] [facility] [address] [place] [address] 12/24/2024 [place] [facility] [address] [place] [address] 01/07/2025 [place] [facility] [address] [place] [address] 02/25/2025 [place] Cardiomegaly I51.7 [facility] [address] [place], [place] 03/31/2025 SHARAN JONES [facility] [address] 04/30/2025 SHARAN JONES [facility] [address] [place] [address] 05/27/2025 RED BUTTS Hypothyroidism, unsp ecified E03.9 [facility] [address] 06/09/2025 RED ORTEGAT [facility] [address] 06/17/2025 [place] [facility] [address] 07/21/2025 RED BUTTS MGUS (monoclonal bernadine mopathy of unknown significance) D47.2 [facility] [address] 07/26/2025 RED BUTTS [facility] [address] [place] [address] 07/26/2025 RED BUTTS [facility] [address] 08/05/2025 RED BUTTS Type 2 diabetes gregg itus with complication, unspecified whether termite treater insulin use E11.8 and Hyperlipidemia, unspecified E78.5 [facility] [address] 09/18/2024 SHARAN JONES [facility] [address] 02/16/2025 RED BUTTS [facility] [address] 06/24/2025 ERD BUTTS Assessments Encounter Date Diagnosis (ICD Code) Assessment Notes Treatment Notes Treatment Clinical Notes Section Notes 09/15/2024 Atypical chest pain (ICD-10 - R07.89) [...] software and direct typing Please excuse inadvertent internal sales or typing errors, or uncorrected word substitutions Although every attempt has been made by the provider to proofread this document, occasional misspellings and typographical errors may still be present Due to the previous pandemic, and the use of personal protective equipment (PPE) This may decrease voice recognition accuracy Inadvertent internal sales errors may occur 09/15/2024 Bilateral lower extremity [...] software and direct typing Please excuse inadvertent internal sales or typing errors, or uncorrected word substitutions Although every attempt has been made by the provider to proofread this document, occasional misspellings and typographical errors may still be present Due to the previous pandemic, and the use of personal protective equipment (PPE) This may decrease voice recognition accuracy Inadvertent internal sales errors may occur 09/17/2024 Atypical chest pain [...] software and direct typing Please excuse inadvertent internal sales or typing errors, or uncorrected word substitutions Although every attempt has been made by the provider to proofread this document, occasional misspellings and typographical errors may still be present Due to the previous pandemic, and the use of personal protective equipment (PPE) This may decrease voice recognition accuracy Inadvertent internal sales errors may occur 02/15/2025 Encounter for screening [...] software and direct typing Please excuse inadvertent internal sales or typing errors, or uncorrected word substitutions Although every attempt has been made by the provider to proofread this document, occasional misspellings and typographical errors may still be present Due to the previous pandemic, and the use of personal protective equipment (PPE) This may decrease voice recognition accuracy Inadvertent internal sales errors may occur 02/15/2025 Annual physical exam [...] software and direct typing Please excuse inadvertent internal sales or typing errors, or uncorrected word substitutions Although every attempt has been made by the provider to proofread this document, occasional misspellings and typographical errors may still be present Due to the previous pandemic, and the use of personal protective equipment (PPE) This may decrease voice recognition accuracy Inadvertent internal sales errors may occur 02/25/2025 Cardiomegaly (ICD-10 - I51.7) 05/08/2025 Acute abdominal pain (ICD-10 - R10.9) Stable exam today Of note, some information is being carried forward from prior records for informational purposes only and is being cited so that efficiency, safety and quality of the patient's care is not compromised This note was prepared using voice recognition software and direct typing Please excuse inadvertent internal sales or typing errors, or uncorrected word substitutions Although every attempt has been made by the provider to proofread this document, occasional misspellings and typographical errors may still be present Due to the previous pandemic, and the use of personal protective equipment (PPE) This may decrease voice recognition accuracy Inadvertent internal sales errors may occur 05/25/2025 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) Acute Concerns/Problem List: 02/15/2025 Lets recheck thyroid function as well as acetylcholinesterase receptor antibodies Increase Mounjaro to 10 mg Good glycemic improvement Continue 175 mcg of Synthroid Please follow-up with all of your subspecialists Of note, some information is being carried forward from prior records for informational purposes only and is being cited so that efficiency, safety and quality of the patient's care is not compromised This note was prepared using voice recognition software and direct typing Please excuse inadvertent internal sales or typing errors, or uncorrected word substitutions Although every attempt has been made by the provider to proofread this document, occasional misspellings and typographical errors may still be present Due to the previous pandemic, and the use of personal protective equipment (PPE) This may decrease voice recognition accuracy Inadvertent internal sales errors may occur 05/27/2025 Hypothyroidism, unspecified (ICD-10 - E03.9) 05/25/2025 MGUS (monoclonal gammopathy of unknown significance) (ICD-10 - D47.2) Acute Concerns/Problem List: 02/15/2025 Lets recheck thyroid function as well as acetylcholinesterase receptor antibodies Increase Mounjaro to 10 mg Good glycemic improvement Continue 175 mcg of Synthroid Please follow-up with all of your subspecialists Of note, some information is being carried forward from prior records for informational purposes only and is being cited so that efficiency, safety and quality of the patient's care is not compromised This note was prepared using voice recognition software and direct typing Please excuse inadvertent internal sales or typing errors, or uncorrected word substitutions Although every attempt has been made by the provider to proofread this document, occasional misspellings and typographical errors may still be present Due to the previous pandemic, and the use of personal protective equipment (PPE) This may decrease voice recognition accuracy Inadvertent internal sales errors may occur 06/19/2025 Preoperative keena tyson (ICD-10 - Z01.818) patient here for preoperative clearance and risk stratification Patient is scheduled to undergo Right thigh muscle biopsy, Upcoming date, with [facility], Dr. Del Rio Type of anesthesia, MAC/Moderate sedation For workup of progressive weakness of both her arms and legs for about a year now as well as chronic pain METS/DASI: METS/DASI: 37.7 points, 7.37 METs STOP-BANG NO Anticoagulation Use/Hematology Eval: NO Previous anesthesia/Adverse reactions: NO Pulm Disease Chronic obstructive asthma, pulmonary fibrosis, pneumonitis, lupus, MAURO, hypogammaglobulinemia Cardiac Disease NO Renal Disease NO Steroid exposure NO GLP/GIP Use: YES, Mounjaro, 7.5 mg ASA Class: 2/3 VTE Risk/Caprini 5 pointsCaprini VTE ScoreHigh risk Recommended prophylaxis: Pneumatic compression devices AND low dose heparin OR low molecular weight heparin 1.8% VTE risk7-10 days total for duration of chemoprophylaxis Medically complex patient Recently 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 [facility] late April 2025 Pre-operative labs: CBC BMP Coags/PT-INR EKG normal sinus rhythm Per ACC/AHA guidelines, routine ECG is not indicated for asymptomatic patients who are undergoing low risk procedures We will fax over office note Reccomendations: no further workup needed Preop evaluation This is to inform you that I have examined our patient and after reviewing all clinically relevant information I find him, the patient, to be medically stable, and is at an acceptable (low risk) and fit to undergo Low risk surgical procedure as mentioned above under anesthesia with its attendant risks please review the attached history and physical will help you in the management of this patient Please do not hesitate to further contact me for information or questions Preoperative cardiac risk index risk/Luke JADA 0.3% risk of GA, cardiac arrest or other cardiac events intraoperatively or up to 30 days postop Vargas RCI 0 points, Class 1 risk 3.9% 30 day risk of GA or cardiac arrest Of note, some information is being carried forward from prior records for informational purposes only and is being cited so that efficiency, safety and quality of the patient's care is not compromised This note was prepared using voice recognition software and direct typing Please excuse inadvertent internal sales or typing errors, or uncorrected word substitutions Although every attempt has been made by the provider to proofread this document, occasional misspellings and typographical errors may still be present Due to the previous pandemic, and the use of personal protective equipment (PPE) This may decrease voice recognition accuracy Inadvertent internal sales errors may occur 06/19/2025 MGUS (monoclonal gammopathy of unknown significance) (ICD-10 - D47.2) patient here for preoperative clearance and risk stratification Patient is scheduled to undergo Right thigh muscle biopsy, Upcoming date, with [facility], Dr. Del Rio Type of anesthesia, MAC/Moderate sedation For workup of progressive weakness of both her arms and legs for about a year now as well as chronic pain METS/DASI: METS/DASI: 37.7 points, 7.37 METs STOP-BANG NO Anticoagulation Use/Hematology Eval: NO Previous anesthesia/Adverse reactions: NO Pulm Disease Chronic obstructive asthma, pulmonary fibrosis, pneumonitis, lupus, MAURO, hypogammaglobulinemia Cardiac Disease NO Renal Disease NO Steroid exposure NO GLP/GIP Use: YES, Mounjaro, 7.5 mg ASA Class: 2/3 VTE Risk/Caprini 5 pointsCaprini VTE ScoreHigh risk Recommended prophylaxis: Pneumatic compression devices AND low dose heparin OR low molecular weight heparin 1.8% VTE risk7-10 days total for duration of chemoprophylaxis Medically complex patient Recently 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 [facility] late April 2025 Pre-operative labs: CBC BMP Coags/PT-INR EKG normal sinus rhythm Per ACC/AHA guidelines, routine ECG is not indicated for asymptomatic patients who are undergoing low risk procedures We will fax over office note Reccomendations: no further workup needed Preop evaluation This is to inform you that I have examined our patient and after reviewing all clinically relevant information I find him, the patient, to be medically stable, and is at an acceptable (low risk) and fit to undergo Low risk surgical procedure as mentioned above under anesthesia with its attendant risks please review the attached history and physical will help you in the management of this patient Please do not hesitate to further contact me for information or questions Preoperative cardiac risk index risk/Luke JADA 0.3% risk of GA, cardiac arrest or other cardiac events intraoperatively or up to 30 days postop Vargas RCI 0 points, Class 1 risk 3.9% 30 day risk of GA or cardiac arrest Of note, some information is being carried forward from prior records for informational purposes only and is being cited so that efficiency, safety and quality of the patient's care is not compromised This note was prepared using voice recognition software and direct typing Please excuse inadvertent internal sales or typing errors, or uncorrected word substitutions Although every attempt has been made by the provider to proofread this document, occasional misspellings and typographical errors may still be present Due to the previous pandemic, and the use of personal protective equipment (PPE) This may decrease voice recognition accuracy Inadvertent internal sales errors may occur 07/21/2025 MGUS (monoclonal gammopathy of unknown significance) (ICD-10 - D47.2) 08/05/2025 Type 2 diabetes mellitus with complication, unspecified whether termite treater insulin use (ICD-10 - E11.8) 10/06/2024 Acquired hypothyroidism (ICD-10 - E03.9) Acute [...] software and direct typing Please excuse inadvertent internal sales or typing errors, or uncorrected word substitutions Although every attempt has been made by the provider to proofread this document, occasional misspellings and typographical errors may still be present Due to the previous pandemic, and the use of personal protective equipment (PPE) This may decrease voice recognition accuracy Inadvertent internal sales errors may occur 10/06/2024 Atypical chest pain [...] software and direct typing Please excuse inadvertent internal sales or typing errors, or uncorrected word substitutions Although every attempt has been made by the provider to proofread this document, occasional misspellings and typographical errors may still be present Due to the previous pandemic, and the use of personal protective equipment (PPE) This may decrease voice recognition accuracy Inadvertent internal sales errors may occur 10/06/2024 Bilateral lower extremity [...] software and direct typing Please excuse inadvertent internal sales or typing errors, or uncorrected word substitutions Although every attempt has been made by the provider to proofread this document, occasional misspellings and typographical errors may still be present Due to the previous pandemic, and the use of personal protective equipment (PPE) This may decrease voice recognition accuracy Inadvertent internal sales errors may occur 08/05/2025 Hyperlipidemia, unspecified (ICD-10 - E78.5) 06/19/2025 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) patient here for preoperative clearance and risk stratification Patient is scheduled to undergo Right thigh muscle biopsy, Upcoming date, with [facility], Dr. Del Rio Type of anesthesia, MAC/Moderate sedation For workup of progressive weakness of both her arms and legs for about a year now as well as chronic pain METS/DASI: METS/DASI: 37.7 points, 7.37 METs STOP-BANG NO Anticoagulation Use/Hematology Eval: NO Previous anesthesia/Adverse reactions: NO Pulm Disease Chronic obstructive asthma, pulmonary fibrosis, pneumonitis, lupus, MAURO, hypogammaglobulinemia Cardiac Disease NO Renal Disease NO Steroid exposure NO GLP/GIP Use: YES, Mounjaro, 7.5 mg ASA Class: 2/3 VTE Risk/Caprini 5 pointsCaprini VTE ScoreHigh risk Recommended prophylaxis: Pneumatic compression devices AND low dose heparin OR low molecular weight heparin 1.8% VTE risk7-10 days total for duration of chemoprophylaxis Medically complex patient Recently 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 [facility] late April 2025 Pre-operative labs: CBC BMP Coags/PT-INR EKG normal sinus rhythm Per ACC/AHA guidelines, routine ECG is not indicated for asymptomatic patients who are undergoing low risk procedures We will fax over office note Reccomendations: no further workup needed Preop evaluation This is to inform you that I have examined our patient and after reviewing all clinically relevant information I find him, the patient, to be medically stable, and is at an acceptable (low risk) and fit to undergo Low risk surgical procedure as mentioned above under anesthesia with its attendant risks please review the attached history and physical will help you in the management of this patient Please do not hesitate to further contact me for information or questions Preoperative cardiac risk index risk/Luke JADA 0.3% risk of GA, cardiac arrest or other cardiac events intraoperatively or up to 30 days postop Vargas RCI 0 points, Class 1 risk 3.9% 30 day risk of GA or cardiac arrest Of note, some information is being carried forward from prior records for informational purposes only and is being cited so that efficiency, safety and quality of the patient's care is not compromised This note was prepared using voice recognition software and direct typing Please excuse inadvertent internal sales or typing errors, or uncorrected word substitutions Although every attempt has been made by the provider to proofread this document, occasional misspellings and typographical errors may still be present Due to the previous pandemic, and the use of personal protective equipment (PPE) This may decrease voice recognition accuracy Inadvertent internal sales errors may occur 05/25/2025 Acquired hypothyroidism (ICD-10 - E03.9) Acute Concerns/Problem List: 02/15/2025 Lets recheck thyroid function as well as acetylcholinesterase receptor antibodies Increase Mounjaro to 10 mg Good glycemic improvement Continue 175 mcg of Synthroid Please follow-up with all of your subspecialists Of note, some information is being carried forward from prior records for informational purposes only and is being cited so that efficiency, safety and quality of the patient's care is not compromised This note was prepared using voice recognition software and direct typing Please excuse inadvertent internal sales or typing errors, or uncorrected word substitutions Although every attempt has been made by the provider to proofread this document, occasional misspellings and typographical errors may still be present Due to the previous pandemic, and the use of personal protective equipment (PPE) This may decrease voice recognition accuracy Inadvertent internal sales errors may occur 12/11/2024 Acquired hypothyroidism (ICD-10 [...] software and direct typing Please excuse inadvertent internal sales or typing errors, or uncorrected word substitutions Although every attempt has been made by the provider to proofread this document, occasional misspellings and typographical errors may still be present Due to the previous pandemic, and the use of personal protective equipment (PPE) This may decrease voice recognition accuracy Inadvertent internal sales errors may occur 02/15/2025 Encounter for screening for other disorder [...] software and direct typing Please excuse inadvertent internal sales or typing errors, or uncorrected word substitutions Although every attempt has been made by the provider to proofread this document, occasional misspellings and typographical errors may still be present Due to the previous pandemic, and the use of personal protective equipment (PPE) This may decrease voice recognition accuracy Inadvertent internal sales errors may occur 12/11/2024 Bilateral lower extremity [...] software and direct typing Please excuse inadvertent internal sales or typing errors, or uncorrected word substitutions Although every attempt has been made by the provider to proofread this document, occasional misspellings and typographical errors may still be present Due to the previous pandemic, and the use of personal protective equipment (PPE) This may decrease voice recognition accuracy Inadvertent internal sales errors may occur 09/15/2024 Chronic venous insufficiency [...] software and direct typing Please excuse inadvertent internal sales or typing errors, or uncorrected word substitutions Although every attempt has been made by the provider to proofread this document, occasional misspellings and typographical errors may still be present Due to the previous pandemic, and the use of personal protective equipment (PPE) This may decrease voice recognition accuracy Inadvertent internal sales errors may occur 09/15/2024 Acquired hypothyroidism (ICD-10 [...] software and direct typing Please excuse inadvertent internal sales or typing errors, or uncorrected word substitutions Although every attempt has been made by the provider to proofread this document, occasional misspellings and typographical errors may still be present Due to the previous pandemic, and the use of personal protective equipment (PPE) This may decrease voice recognition accuracy Inadvertent internal sales errors may occur 12/11/2024 Chronic venous insufficiency [...] software and direct typing Please excuse inadvertent internal sales or typing errors, or uncorrected word substitutions Although every attempt has been made by the provider to proofread this document, occasional misspellings and typographical errors may still be present Due to the previous pandemic, and the use of personal protective equipment (PPE) This may decrease voice recognition accuracy Inadvertent internal sales errors may occur 05/25/2025 Bilateral lower extremity edema (ICD-10 - R60.0) Acute Concerns/Problem List: 02/15/2025 Lets recheck thyroid function as well as acetylcholinesterase receptor antibodies Increase Mounjaro to 10 mg Good glycemic improvement Continue 175 mcg of Synthroid Please follow-up with all of your subspecialists Of note, some information is being carried forward from prior records for informational purposes only and is being cited so that efficiency, safety and quality of the patient's care is not compromised This note was prepared using voice recognition software and direct typing Please excuse inadvertent internal sales or typing errors, or uncorrected word substitutions Although every attempt has been made by the provider to proofread this document, occasional misspellings and typographical errors may still be present Due to the previous pandemic, and the use of personal protective equipment (PPE) This may decrease voice recognition accuracy Inadvertent internal sales errors may occur 02/15/2025 Advanced directives, counseling/discussion (ICD-10 - Z71.89) Acute Concerns/Problem List: 02/15/2025 [...] software and direct typing Please excuse inadvertent internal sales or typing errors, or uncorrected word substitutions Although every attempt has been made by the provider to proofread this document, occasional misspellings and typographical errors may still be present Due to the previous pandemic, and the use of personal protective equipment (PPE) This may decrease voice recognition accuracy Inadvertent internal sales errors may occur 06/19/2025 Acquired hypothyroidism (ICD-10 - E03.9) patient here for preoperative clearance and risk stratification Patient is scheduled to undergo Right thigh muscle biopsy, Upcoming date, with [facility], Dr. Del Rio Type of anesthesia, MAC/Moderate sedation For workup of progressive weakness of both her arms and legs for about a year now as well as chronic pain METS/DASI: METS/DASI: 37.7 points, 7.37 METs STOP-BANG NO Anticoagulation Use/Hematology Eval: NO Previous anesthesia/Adverse reactions: NO Pulm Disease Chronic obstructive asthma, pulmonary fibrosis, pneumonitis, lupus, MAURO, hypogammaglobulinemia Cardiac Disease NO Renal Disease NO Steroid exposure NO GLP/GIP Use: YES, Mounjaro, 7.5 mg ASA Class: 2/3 VTE Risk/Caprini 5 pointsCaprini VTE ScoreHigh risk Recommended prophylaxis: Pneumatic compression devices AND low dose heparin OR low molecular weight heparin 1.8% VTE risk7-10 days total for duration of chemoprophylaxis Medically complex patient Recently 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 [facility] late April 2025 Pre-operative labs: CBC BMP Coags/PT-INR EKG normal sinus rhythm Per ACC/AHA guidelines, routine ECG is not indicated for asymptomatic patients who are undergoing low risk procedures We will fax over office note Reccomendations: no further workup needed Preop evaluation This is to inform you that I have examined our patient and after reviewing all clinically relevant information I find him, the patient, to be medically stable, and is at an acceptable (low risk) and fit to undergo Low risk surgical procedure as mentioned above under anesthesia with its attendant risks please review the attached history and physical will help you in the management of this patient Please do not hesitate to further contact me for information or questions Preoperative cardiac risk index risk/Luke JADA 0.3% risk of GA, cardiac arrest or other cardiac events intraoperatively or up to 30 days postop Vargas RCI 0 points, Class 1 risk 3.9% 30 day risk of GA or cardiac arrest Of note, some information is being carried forward from prior records for informational purposes only and is being cited so that efficiency, safety and quality of the patient's care is not compromised This note was prepared using voice recognition software and direct typing Please excuse inadvertent internal sales or typing errors, or uncorrected word substitutions Although every attempt has been made by the provider to proofread this document, occasional misspellings and typographical errors may still be present Due to the previous pandemic, and the use of personal protective equipment (PPE) This may decrease voice recognition accuracy Inadvertent internal sales errors may occur 10/06/2024 Chronic venous insufficiency [...] software and direct typing Please excuse inadvertent internal sales or typing errors, or uncorrected word substitutions Although every attempt has been made by the provider to proofread this document, occasional misspellings and typographical errors may still be present Due to the previous pandemic, and the use of personal protective equipment (PPE) This may decrease voice recognition accuracy Inadvertent internal sales errors may occur 10/06/2024 Abnormal metabolic state [...] software and direct typing Please excuse inadvertent internal sales or typing errors, or uncorrected word substitutions Although every attempt has been made by the provider to proofread this document, occasional misspellings and typographical errors may still be present Due to the previous pandemic, and the use of personal protective equipment (PPE) This may decrease voice recognition accuracy Inadvertent internal sales errors may occur 06/19/2025 Bilateral lower extremity edema (ICD-10 - R60.0) patient here for preoperative clearance and risk stratification Patient is scheduled to undergo Right thigh muscle biopsy, Upcoming date, with [facility], Dr. Del Rio Type of anesthesia, MAC/Moderate sedation For workup of progressive weakness of both her arms and legs for about a year now as well as chronic pain METS/DASI: METS/DASI: 37.7 points, 7.37 METs STOP-BANG NO Anticoagulation Use/Hematology Eval: NO Previous anesthesia/Adverse reactions: NO Pulm Disease Chronic obstructive asthma, pulmonary fibrosis, pneumonitis, lupus, MAURO, hypogammaglobulinemia Cardiac Disease NO Renal Disease NO Steroid exposure NO GLP/GIP Use: YES, Mounjaro, 7.5 mg ASA Class: 2/3 VTE Risk/Caprini 5 pointsCaprini VTE ScoreHigh risk Recommended prophylaxis: Pneumatic compression devices AND low dose heparin OR low molecular weight heparin 1.8% VTE risk7-10 days total for duration of chemoprophylaxis Medically complex patient Recently 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 [facility] late April 2025 Pre-operative labs: CBC BMP Coags/PT-INR EKG normal sinus rhythm Per ACC/AHA guidelines, routine ECG is not indicated for asymptomatic patients who are undergoing low risk procedures We will fax over office note Reccomendations: no further workup needed Preop evaluation This is to inform you that I have examined our patient and after reviewing all clinically relevant information I find him, the patient, to be medically stable, and is at an acceptable (low risk) and fit to undergo Low risk surgical procedure as mentioned above under anesthesia with its attendant risks please review the attached history and physical will help you in the management of this patient Please do not hesitate to further contact me for information or questions Preoperative cardiac risk index risk/Luke JADA 0.3% risk of GA, cardiac arrest or other cardiac events intraoperatively or up to 30 days postop Vargas RCI 0 points, Class 1 risk 3.9% 30 day risk of GA or cardiac arrest Of note, some information is being carried forward from prior records for informational purposes only and is being cited so that efficiency, safety and quality of the patient's care is not compromised This note was prepared using voice recognition software and direct typing Please excuse inadvertent internal sales or typing errors, or uncorrected word substitutions Although every attempt has been made by the provider to proofread this document, occasional misspellings and typographical errors may still be present Due to the previous pandemic, and the use of personal protective equipment (PPE) This may decrease voice recognition accuracy Inadvertent internal sales errors may occur 05/25/2025 Chronic venous insufficiency (ICD-10 - I87.2) Acute Concerns/Problem List: 02/15/2025 Lets recheck thyroid function as well as acetylcholinesterase receptor antibodies Increase Mounjaro to 10 mg Good glycemic improvement Continue 175 mcg of Synthroid Please follow-up with all of your subspecialists Of note, some information is being carried forward from prior records for informational purposes only and is being cited so that efficiency, safety and quality of the patient's care is not compromised This note was prepared using voice recognition software and direct typing Please excuse inadvertent internal sales or typing errors, or uncorrected word substitutions Although every attempt has been made by the provider to proofread this document, occasional misspellings and typographical errors may still be present Due to the previous pandemic, and the use of personal protective equipment (PPE) This may decrease voice recognition accuracy Inadvertent internal sales errors may occur 12/11/2024 Abnormal metabolic state [...] software and direct typing Please excuse inadvertent internal sales or typing errors, or uncorrected word substitutions Although every attempt has been made by the provider to proofread this document, occasional misspellings and typographical errors may still be present Due to the previous pandemic, and the use of personal protective equipment (PPE) This may decrease voice recognition accuracy Inadvertent internal sales errors may occur 02/15/2025 Acquired hypothyroidism (ICD-10 [...] software and direct typing Please excuse inadvertent internal sales or typing errors, or uncorrected word substitutions Although every attempt has been made by the provider to proofread this document, occasional misspellings and typographical errors may still be present Due to the previous pandemic, and the use of personal protective equipment (PPE) This may decrease voice recognition accuracy Inadvertent internal sales errors may occur 12/11/2024 Pulmonary fibrosis (ICD-10 [...] software and direct typing Please excuse inadvertent internal sales or typing errors, or uncorrected word substitutions Although every attempt has been made by the provider to proofread this document, occasional misspellings and typographical errors may still be present Due to the previous pandemic, and the use of personal protective equipment (PPE) This may decrease voice recognition accuracy Inadvertent internal sales errors may occur 09/15/2024 Abnormal metabolic state [...] software and direct typing Please excuse inadvertent internal sales or typing errors, or uncorrected word substitutions Although every attempt has been made by the provider to proofread this document, occasional misspellings and typographical errors may still be present Due to the previous pandemic, and the use of personal protective equipment (PPE) This may decrease voice recognition accuracy Inadvertent internal sales errors may occur 05/25/2025 Pulmonary fibrosis (ICD-10 - J84.10) Acute Concerns/Problem List: 02/15/2025 Lets recheck thyroid function as well as acetylcholinesterase receptor antibodies Increase Mounjaro to 10 mg Good glycemic improvement Continue 175 mcg of Synthroid Please follow-up with all of your subspecialists Of note, some information is being carried forward from prior records for informational purposes only and is being cited so that efficiency, safety and quality of the patient's care is not compromised This note was prepared using voice recognition software and direct typing Please excuse inadvertent internal sales or typing errors, or uncorrected word substitutions Although every attempt has been made by the provider to proofread this document, occasional misspellings and typographical errors may still be present Due to the previous pandemic, and the use of personal protective equipment (PPE) This may decrease voice recognition accuracy Inadvertent internal sales errors may occur 02/15/2025 Bilateral lower extremity [...] software and direct typing Please excuse inadvertent internal sales or typing errors, or uncorrected word substitutions Although every attempt has been made by the provider to proofread this document, occasional misspellings and typographical errors may still be present Due to the previous pandemic, and the use of personal protective equipment (PPE) This may decrease voice recognition accuracy Inadvertent internal sales errors may occur 06/19/2025 Chronic venous insufficiency (ICD-10 - I87.2) patient here for preoperative clearance and risk stratification Patient is scheduled to undergo Right thigh muscle biopsy, Upcoming date, with [facility], Dr. Del Rio Type of anesthesia, MAC/Moderate sedation For workup of progressive weakness of both her arms and legs for about a year now as well as chronic pain METS/DASI: METS/DASI: 37.7 points, 7.37 METs STOP-BANG NO Anticoagulation Use/Hematology Eval: NO Previous anesthesia/Adverse reactions: NO Pulm Disease Chronic obstructive asthma, pulmonary fibrosis, pneumonitis, lupus, MAURO, hypogammaglobulinemia Cardiac Disease NO Renal Disease NO Steroid exposure NO GLP/GIP Use: YES, Mounjaro, 7.5 mg ASA Class: 2/3 VTE Risk/Caprini 5 pointsCaprini VTE ScoreHigh risk Recommended prophylaxis: Pneumatic compression devices AND low dose heparin OR low molecular weight heparin 1.8% VTE risk7-10 days total for duration of chemoprophylaxis Medically complex patient Recently 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 [facility] late April 2025 Pre-operative labs: CBC BMP Coags/PT-INR EKG normal sinus rhythm Per ACC/AHA guidelines, routine ECG is not indicated for asymptomatic patients who are undergoing low risk procedures We will fax over office note Reccomendations: no further workup needed Preop evaluation This is to inform you that I have examined our patient and after reviewing all clinically relevant information I find him, the patient, to be medically stable, and is at an acceptable (low risk) and fit to undergo Low risk surgical procedure as mentioned above under anesthesia with its attendant risks please review the attached history and physical will help you in the management of this patient Please do not hesitate to further contact me for information or questions Preoperative cardiac risk index risk/Luke JADA 0.3% risk of GA, cardiac arrest or other cardiac events intraoperatively or up to 30 days postop Vargas RCI 0 points, Class 1 risk 3.9% 30 day risk of GA or cardiac arrest Of note, some information is being carried forward from prior records for informational purposes only and is being cited so that efficiency, safety and quality of the patient's care is not compromised This note was prepared using voice recognition software and direct typing Please excuse inadvertent internal sales or typing errors, or uncorrected word substitutions Although every attempt has been made by the provider to proofread this document, occasional misspellings and typographical errors may still be present Due to the previous pandemic, and the use of personal protective equipment (PPE) This may decrease voice recognition accuracy Inadvertent internal sales errors may occur 10/06/2024 Pulmonary fibrosis (ICD-10 [...] software and direct typing Please excuse inadvertent internal sales or typing errors, or uncorrected word substitutions Although every attempt has been made by the provider to proofread this document, occasional misspellings and typographical errors may still be present Due to the previous pandemic, and the use of personal protective equipment (PPE) This may decrease voice recognition accuracy Inadvertent internal sales errors may occur 06/19/2025 Pulmonary fibrosis (ICD-10 - J84.10) patient here for preoperative clearance and risk stratification Patient is scheduled to undergo Right thigh muscle biopsy, Upcoming date, with [facility], Dr. Del Rio Type of anesthesia, MAC/Moderate sedation For workup of progressive weakness of both her arms and legs for about a year now as well as chronic pain METS/DASI: METS/DASI: 37.7 points, 7.37 METs STOP-BANG NO Anticoagulation Use/Hematology Eval: NO Previous anesthesia/Adverse reactions: NO Pulm Disease Chronic obstructive asthma, pulmonary fibrosis, pneumonitis, lupus, MAURO, hypogammaglobulinemia Cardiac Disease NO Renal Disease NO Steroid exposure NO GLP/GIP Use: YES, Alexandra, 7.5 mg ASA Class: 2/3 VTE Risk/Caprini 5 pointsCaprini VTE ScoreHigh risk Recommended prophylaxis: Pneumatic compression devices AND low dose heparin OR low molecular weight heparin 1.8% VTE risk7-10 days total for duration of chemoprophylaxis Medically complex patient Recently 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 [facility] late April 2025 Pre-operative labs: CBC BMP Coags/PT-INR EKG normal sinus rhythm Per ACC/AHA guidelines, routine ECG is not indicated for asymptomatic patients who are undergoing low risk procedures We will fax over office note Reccomendations: no further workup needed Preop evaluation This is to inform you that I have examined our patient and after reviewing all clinically relevant information I find him, the patient, to be medically stable, and is at an acceptable (low risk) and fit to undergo Low risk surgical procedure as mentioned above under anesthesia with its attendant risks please review the attached history and physical will help you in the management of this patient Please do not hesitate to further contact me for information or questions Preoperative cardiac risk index risk/Luke JADA 0.3% risk of GA, cardiac arrest or other cardiac events intraoperatively or up to 30 days postop Vargas RCI 0 points, Class 1 risk 3.9% 30 day risk of GA or cardiac arrest Of note, some information is being carried forward from prior records for informational purposes only and is being cited so that efficiency, safety and quality of the patient's care is not compromised This note was prepared using voice recognition software and direct typing Please excuse inadvertent internal sales or typing errors, or uncorrected word substitutions Although every attempt has been made by the provider to proofread this document, occasional misspellings and typographical errors may still be present Due to the previous pandemic, and the use of personal protective equipment (PPE) This may decrease voice recognition accuracy Inadvertent internal sales errors may occur 02/15/2025 Chronic venous insufficiency [...] software and direct typing Please excuse inadvertent internal sales or typing errors, or uncorrected word substitutions Although every attempt has been made by the provider to proofread this document, occasional misspellings and typographical errors may still be present Due to the previous pandemic, and the use of personal protective equipment (PPE) This may decrease voice recognition accuracy Inadvertent internal sales errors may occur 05/25/2025 Hypothyroidism, unspecified (ICD-10 - E03.9) Acute Concerns/Problem List: 02/15/2025 Lets recheck thyroid function as well as acetylcholinesterase receptor antibodies Increase Mounjaro to 10 mg Good glycemic improvement Continue 175 mcg of Synthroid Please follow-up with all of your subspecialists Of note, some information is being carried forward from prior records for informational purposes only and is being cited so that efficiency, safety and quality of the patient's care is not compromised This note was prepared using voice recognition software and direct typing Please excuse inadvertent internal sales or typing errors, or uncorrected word substitutions Although every attempt has been made by the provider to proofread this document, occasional misspellings and typographical errors may still be present Due to the previous pandemic, and the use of personal protective equipment (PPE) This may decrease voice recognition accuracy Inadvertent internal sales errors may occur 09/15/2024 Hypothyroidism, unspecified (ICD-10 [...] software and direct typing Please excuse inadvertent internal sales or typing errors, or uncorrected word substitutions Although every attempt has been made by the provider to proofread this document, occasional misspellings and typographical errors may still be present Due to the previous pandemic, and the use of personal protective equipment (PPE) This may decrease voice recognition accuracy Inadvertent internal sales errors may occur 12/11/2024 Hypothyroidism, unspecified (ICD-10 [...] software and direct typing Please excuse inadvertent internal sales or typing errors, or uncorrected word substitutions Although every attempt has been made by the provider to proofread this document, occasional misspellings and typographical errors may still be present Due to the previous pandemic, and the use of personal protective equipment (PPE) This may decrease voice recognition accuracy Inadvertent internal sales errors may occur 12/11/2024 Chronic pain syndrom e (ICD-10 - G89.4) Acute Concerns/Problem List: 12/11/2024 [...] software and direct typing Please excuse inadvertent internal sales or typing errors, or uncorrected word substitutions Although every attempt has been made by the provider to proofread this document, occasional misspellings and typographical errors may still be present Due to the previous pandemic, and the use of personal protective equipment (PPE) This may decrease voice recognition accuracy Inadvertent internal sales errors may occur 02/15/2025 Pulmonary fibrosis (ICD-10 [...] software and direct typing Please excuse inadvertent internal sales or typing errors, or uncorrected word substitutions Although every attempt has been made by the provider to proofread this document, occasional misspellings and typographical errors may still be present Due to the previous pandemic, and the use of personal protective equipment (PPE) This may decrease voice recognition accuracy Inadvertent internal sales errors may occur 05/25/2025 Chronic pain syndrom e (ICD-10 - G89.4) Acute Concerns/Problem List: 02/15/2025 Lets recheck thyroid function as well as acetylcholinesterase receptor antibodies Increase Mounjaro to 10 mg Good glycemic improvement Continue 175 mcg of Synthroid Please follow-up with all of your subspecialists Of note, some information is being carried forward from prior records for informational purposes only and is being cited so that efficiency, safety and quality of the patient's care is not compromised This note was prepared using voice recognition software and direct typing Please excuse inadvertent internal sales or typing errors, or uncorrected word substitutions Although every attempt has been made by the provider to proofread this document, occasional misspellings and typographical errors may still be present Due to the previous pandemic, and the use of personal protective equipment (PPE) This may decrease voice recognition accuracy Inadvertent internal sales errors may occur 06/19/2025 Hypothyroidism, unspecified (ICD-10 - E03.9) patient here for preoperative clearance and risk stratification Patient is scheduled to undergo Right thigh muscle biopsy, Upcoming date, with [facility], Dr. Del Rio Type of anesthesia, MAC/Moderate sedation For workup of progressive weakness of both her arms and legs for about a year now as well as chronic pain METS/DASI: METS/DASI: 37.7 points, 7.37 METs STOP-BANG NO Anticoagulation Use/Hematology Eval: NO Previous anesthesia/Adverse reactions: NO Pulm Disease Chronic obstructive asthma, pulmonary fibrosis, pneumonitis, lupus, MAURO, hypogammaglobulinemia Cardiac Disease NO Renal Disease NO Steroid exposure NO GLP/GIP Use: YES, Mounjaro, 7.5 mg ASA Class: 2/3 VTE Risk/Caprini 5 pointsCaprini VTE ScoreHigh risk Recommended prophylaxis: Pneumatic compression devices AND low dose heparin OR low molecular weight heparin 1.8% VTE risk7-10 days total for duration of chemoprophylaxis Medically complex patient Recently 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 [facility] late April 2025 Pre-operative labs: CBC BMP Coags/PT-INR EKG normal sinus rhythm Per ACC/AHA guidelines, routine ECG is not indicated for asymptomatic patients who are undergoing low risk procedures We will fax over office note Reccomendations: no further workup needed Preop evaluation This is to inform you that I have examined our patient and after reviewing all clinically relevant information I find him, the patient, to be medically stable, and is at an acceptable (low risk) and fit to undergo Low risk surgical procedure as mentioned above under anesthesia with its attendant risks please review the attached history and physical will help you in the management of this patient Please do not hesitate to further contact me for information or questions Preoperative cardiac risk index risk/Luke JADA 0.3% risk of GA, cardiac arrest or other cardiac events intraoperatively or up to 30 days postop Vargas RCI 0 points, Class 1 risk 3.9% 30 day risk of GA or cardiac arrest Of note, some information is being carried forward from prior records for informational purposes only and is being cited so that efficiency, safety and quality of the patient's care is not compromised This note was prepared using voice recognition software and direct typing Please excuse inadvertent internal sales or typing errors, or uncorrected word substitutions Although every attempt has been made by the provider to proofread this document, occasional misspellings and typographical errors may still be present Due to the previous pandemic, and the use of personal protective equipment (PPE) This may decrease voice recognition accuracy Inadvertent internal sales errors may occur 10/06/2024 Hypothyroidism, unspecified (ICD-10 [...] software and direct typing Please excuse inadvertent internal sales or typing errors, or uncorrected word substitutions Although every attempt has been made by the provider to proofread this document, occasional misspellings and typographical errors may still be present Due to the previous pandemic, and the use of personal protective equipment (PPE) This may decrease voice recognition accuracy Inadvertent internal sales errors may occur 06/19/2025 Chronic pain syndrom e (ICD-10 - G89.4) patient here for preoperative clearance and risk stratification Patient is scheduled to undergo Right thigh muscle biopsy, Upcoming date, with [facility], Dr. Del Rio Type of anesthesia, MAC/Moderate sedation For workup of progressive weakness of both her arms and legs for about a year now as well as chronic pain METS/DASI: METS/DASI: 37.7 points, 7.37 METs STOP-BANG NO Anticoagulation Use/Hematology Eval: NO Previous anesthesia/Adverse reactions: NO Pulm Disease Chronic obstructive asthma, pulmonary fibrosis, pneumonitis, lupus, MAURO, hypogammaglobulinemia Cardiac Disease NO Renal Disease NO Steroid exposure NO GLP/GIP Use: YES, Alexandra 7.5 mg ASA Class: 2/3 VTE Risk/Caprini 5 pointsCaprini VTE ScoreHigh risk Recommended prophylaxis: Pneumatic compression devices AND low dose heparin OR low molecular weight heparin 1.8% VTE risk7-10 days total for duration of chemoprophylaxis Medically complex patient Recently 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 [facility] late April 2025 Pre-operative labs: CBC BMP Coags/PT-INR EKG normal sinus rhythm Per ACC/AHA guidelines, routine ECG is not indicated for asymptomatic patients who are undergoing low risk procedures We will fax over office note Reccomendations: no further workup needed Preop evaluation This is to inform you that I have examined our patient and after reviewing all clinically relevant information I find him, the patient, to be medically stable, and is at an acceptable (low risk) and fit to undergo Low risk surgical procedure as mentioned above under anesthesia with its attendant risks please review the attached history and physical will help you in the management of this patient Please do not hesitate to further contact me for information or questions Preoperative cardiac risk index risk/Luke JADA 0.3% risk of GA, cardiac arrest or other cardiac events intraoperatively or up to 30 days postop Vargas RCI 0 points, Class 1 risk 3.9% 30 day risk of GA or cardiac arrest Of note, some information is being carried forward from prior records for informational purposes only and is being cited so that efficiency, safety and quality of the patient's care is not compromised This note was prepared using voice recognition software and direct typing Please excuse inadvertent internal sales or typing errors, or uncorrected word substitutions Although every attempt has been made by the provider to proofread this document, occasional misspellings and typographical errors may still be present Due to the previous pandemic, and the use of personal protective equipment (PPE) This may decrease voice recognition accuracy Inadvertent internal sales errors may occur 05/25/2025 Encounter for examination of blood pressure without abnormal findings (ICD-10 - Z01.30) Acute Concerns/Problem List: 02/15/2025 Lets recheck thyroid function as well as acetylcholinesterase receptor antibodies Increase Mounjaro to 10 mg Good glycemic improvement Continue 175 mcg of Synthroid Please follow-up with all of your subspecialists Of note, some information is being carried forward from prior records for informational purposes only and is being cited so that efficiency, safety and quality of the patient's care is not compromised This note was prepared using voice recognition software and direct typing Please excuse inadvertent internal sales or typing errors, or uncorrected word substitutions Although every attempt has been made by the provider to proofread this document, occasional misspellings and typographical errors may still be present Due to the previous pandemic, and the use of personal protective equipment (PPE) This may decrease voice recognition accuracy Inadvertent internal sales errors may occur 02/15/2025 Hypothyroidism, unspecified (ICD-10 [...] software and direct typing Please excuse inadvertent internal sales or typing errors, or uncorrected word substitutions Although every attempt has been made by the provider to proofread this document, occasional misspellings and typographical errors may still be present Due to the previous pandemic, and the use of personal protective equipment (PPE) This may decrease voice recognition accuracy Inadvertent internal sales errors may occur 02/15/2025 Chronic pain syndrom e (ICD-10 - G89.4) Acute Concerns/Problem List: 02/15/2025 [...] software and direct typing Please excuse inadvertent internal sales or typing errors, or uncorrected word substitutions Although every attempt has been made by the provider to proofread this document, occasional misspellings and typographical errors may still be present Due to the previous pandemic, and the use of personal protective equipment (PPE) This may decrease voice recognition accuracy Inadvertent internal sales errors may occur 06/19/2025 Encounter for examination of blood pressure without abnormal findings (ICD-10 - Z01.30) patient here for preoperative clearance and risk stratification Patient is scheduled to undergo Right thigh muscle biopsy, Upcoming date, with [facility], Dr. Del Rio Type of anesthesia, MAC/Moderate sedation For workup of progressive weakness of both her arms and legs for about a year now as well as chronic pain METS/DASI: METS/DASI: 37.7 points, 7.37 METs STOP-BANG NO Anticoagulation Use/Hematology Eval: NO Previous anesthesia/Adverse reactions: NO Pulm Disease Chronic obstructive asthma, pulmonary fibrosis, pneumonitis, lupus, MAURO, hypogammaglobulinemia Cardiac Disease NO Renal Disease NO Steroid exposure NO GLP/GIP Use: YES, Mounjaro, 7.5 mg ASA Class: 2/3 VTE Risk/Caprini 5 pointsCaprini VTE ScoreHigh risk Recommended prophylaxis: Pneumatic compression devices AND low dose heparin OR low molecular weight heparin 1.8% VTE risk7-10 days total for duration of chemoprophylaxis Medically complex patient Recently 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 [facility] late April 2025 Pre-operative labs: CBC BMP Coags/PT-INR EKG normal sinus rhythm Per ACC/AHA guidelines, routine ECG is not indicated for asymptomatic patients who are undergoing low risk procedures We will fax over office note Reccomendations: no further workup needed Preop evaluation This is to inform you that I have examined our patient and after reviewing all clinically relevant information I find him, the patient, to be medically stable, and is at an acceptable (low risk) and fit to undergo Low risk surgical procedure as mentioned above under anesthesia with its attendant risks please review the attached history and physical will help you in the management of this patient Please do not hesitate to further contact me for information or questions Preoperative cardiac risk index risk/Luke JADA 0.3% risk of GA, cardiac arrest or other cardiac events intraoperatively or up to 30 days postop Vargas RCI 0 points, Class 1 risk 3.9% 30 day risk of GA or cardiac arrest Of note, some information is being carried forward from prior records for informational purposes only and is being cited so that efficiency, safety and quality of the patient's care is not compromised This note was prepared using voice recognition software and direct typing Please excuse inadvertent internal sales or typing errors, or uncorrected word substitutions Although every attempt has been made by the provider to proofread this document, occasional misspellings and typographical errors may still be present Due to the previous pandemic, and the use of personal protective equipment (PPE) This may decrease voice recognition accuracy Inadvertent internal sales errors may occur 05/25/2025 Mild cardiomegaly (ICD-10 - I51.7) Acute Concerns/Problem List: 02/15/2025 Lets recheck thyroid function as well as acetylcholinesterase receptor antibodies Increase Mounjaro to 10 mg Good glycemic improvement Continue 175 mcg of Synthroid Please follow-up with all of your subspecialists Of note, some information is being carried forward from prior records for informational purposes only and is being cited so that efficiency, safety and quality of the patient's care is not compromised This note was prepared using voice recognition software and direct typing Please excuse inadvertent internal sales or typing errors, or uncorrected word substitutions Although every attempt has been made by the provider to proofread this document, occasional misspellings and typographical errors may still be present Due to the previous pandemic, and the use of personal protective equipment (PPE) This may decrease voice recognition accuracy Inadvertent internal sales errors may occur 06/19/2025 Mild cardiomegaly (ICD-10 - I51.7) patient here for preoperative clearance and risk stratification Patient is scheduled to undergo Right thigh muscle biopsy, Upcoming date, with [facility], Dr. Del Rio Type of anesthesia, MAC/Moderate sedation For workup of progressive weakness of both her arms and legs for about a year now as well as chronic pain METS/DASI: METS/DASI: 37.7 points, 7.37 METs STOP-BANG NO Anticoagulation Use/Hematology Eval: NO Previous anesthesia/Adverse reactions: NO Pulm Disease Chronic obstructive asthma, pulmonary fibrosis, pneumonitis, lupus, MAURO, hypogammaglobulinemia Cardiac Disease NO Renal Disease NO Steroid exposure NO GLP/GIP Use: YES, Alexandra, 7.5 mg ASA Class: 2/3 VTE Risk/Caprini 5 pointsCaprini VTE ScoreHigh risk Recommended prophylaxis: Pneumatic compression devices AND low dose heparin OR low molecular weight heparin 1.8% VTE risk7-10 days total for duration of chemoprophylaxis Medically complex patient Recently 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 [facility] late April 2025 Pre-operative labs: CBC BMP Coags/PT-INR EKG normal sinus rhythm Per ACC/AHA guidelines, routine ECG is not indicated for asymptomatic patients who are undergoing low risk procedures We will fax over office note Reccomendations: no further workup needed Preop evaluation This is to inform you that I have examined our patient and after reviewing all clinically relevant information I find him, the patient, to be medically stable, and is at an acceptable (low risk) and fit to undergo Low risk surgical procedure as mentioned above under anesthesia with its attendant risks please review the attached history and physical will help you in the management of this patient Please do not hesitate to further contact me for information or questions Preoperative cardiac risk index risk/Luke JADA 0.3% risk of GA, cardiac arrest or other cardiac events intraoperatively or up to 30 days postop Vargas RCI 0 points, Class 1 risk 3.9% 30 day risk of GA or cardiac arrest Of note, some information is being carried forward from prior records for informational purposes only and is being cited so that efficiency, safety and quality of the patient's care is not compromised This note was prepared using voice recognition software and direct typing Please excuse inadvertent internal sales or typing errors, or uncorrected word substitutions Although every attempt has been made by the provider to proofread this document, occasional misspellings and typographical errors may still be present Due to the previous pandemic, and the use of personal protective equipment (PPE) This may decrease voice recognition accuracy Inadvertent internal sales errors may occur 05/25/2025 Myalgia, multiple sites (ICD-10 - M79.18) Acute Concerns/Problem List: 02/15/2025 Lets recheck thyroid function as well as acetylcholinesterase receptor antibodies Increase Mounjaro to 10 mg Good glycemic improvement Continue 175 mcg of Synthroid Please follow-up with all of your subspecialists Of note, some information is being carried forward from prior records for informational purposes only and is being cited so that efficiency, safety and quality of the patient's care is not compromised This note was prepared using voice recognition software and direct typing Please excuse inadvertent internal sales or typing errors, or uncorrected word substitutions Although every attempt has been made by the provider to proofread this document, occasional misspellings and typographical errors may still be present Due to the previous pandemic, and the use of personal protective equipment (PPE) This may decrease voice recognition accuracy Inadvertent internal sales errors may occur 02/15/2025 Encounter for examination [...] software and direct typing Please excuse inadvertent internal sales or typing errors, or uncorrected word substitutions Although every attempt has been made by the provider to proofread this document, occasional misspellings and typographical errors may still be present Due to the previous pandemic, and the use of personal protective equipment (PPE) This may decrease voice recognition accuracy Inadvertent internal sales errors may occur 02/15/2025 Mild cardiomegaly (ICD-10 [...] software and direct typing Please excuse inadvertent internal sales or typing errors, or uncorrected word substitutions Although every attempt has been made by the provider to proofread this document, occasional misspellings and typographical errors may still be present Due to the previous pandemic, and the use of personal protective equipment (PPE) This may decrease voice recognition accuracy Inadvertent internal sales errors may occur 06/19/2025 Myalgia, multiple sites (ICD-10 - M79.18) patient here for preoperative clearance and risk stratification Patient is scheduled to undergo Right thigh muscle biopsy, Upcoming date, with [facility], Dr. Del Rio Type of anesthesia, MAC/Moderate sedation For workup of progressive weakness of both her arms and legs for about a year now as well as chronic pain METS/DASI: METS/DASI: 37.7 points, 7.37 METs STOP-BANG NO Anticoagulation Use/Hematology Eval: NO Previous anesthesia/Adverse reactions: NO Pulm Disease Chronic obstructive asthma, pulmonary fibrosis, pneumonitis, lupus, MAURO, hypogammaglobulinemia Cardiac Disease NO Renal Disease NO Steroid exposure NO GLP/GIP Use: YES, Mounjaro, 7.5 mg ASA Class: 2/3 VTE Risk/Caprini 5 pointsCaprini VTE ScoreHigh risk Recommended prophylaxis: Pneumatic compression devices AND low dose heparin OR low molecular weight heparin 1.8% VTE risk7-10 days total for duration of chemoprophylaxis Medically complex patient Recently 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 [facility] late April 2025 Pre-operative labs: CBC BMP Coags/PT-INR EKG normal sinus rhythm Per ACC/AHA guidelines, routine ECG is not indicated for asymptomatic patients who are undergoing low risk procedures We will fax over office note Reccomendations: no further workup needed Preop evaluation This is to inform you that I have examined our patient and after reviewing all clinically relevant information I find him, the patient, to be medically stable, and is at an acceptable (low risk) and fit to undergo Low risk surgical procedure as mentioned above under anesthesia with its attendant risks please review the attached history and physical will help you in the management of this patient Please do not hesitate to further contact me for information or questions Preoperative cardiac risk index risk/Luke JADA 0.3% risk of GA, cardiac arrest or other cardiac events intraoperatively or up to 30 days postop Vargas RCI 0 points, Class 1 risk 3.9% 30 day risk of GA or cardiac arrest Of note, some information is being carried forward from prior records for informational purposes only and is being cited so that efficiency, safety and quality of the patient's care is not compromised This note was prepared using voice recognition software and direct typing Please excuse inadvertent internal sales or typing errors, or uncorrected word substitutions Although every attempt has been made by the provider to proofread this document, occasional misspellings and typographical errors may still be present Due to the previous pandemic, and the use of personal protective equipment (PPE) This may decrease voice recognition accuracy Inadvertent internal sales errors may occur 06/19/2025 Type 2 diabetes mellitus without complication, without long-term current use of insulin (ICD-10 - E11.9) patient here for preoperative clearance and risk stratification Patient is scheduled to undergo Right thigh muscle biopsy, Upcoming date, with [facility], Dr. Del Rio Type of anesthesia, MAC/Moderate sedation For workup of progressive weakness of both her arms and legs for about a year now as well as chronic pain METS/DASI: METS/DASI: 37.7 points, 7.37 METs STOP-BANG NO Anticoagulation Use/Hematology Eval: NO Previous anesthesia/Adverse reactions: NO Pulm Disease Chronic obstructive asthma, pulmonary fibrosis, pneumonitis, lupus, MAURO, hypogammaglobulinemia Cardiac Disease NO Renal Disease NO Steroid exposure NO GLP/GIP Use: YES, Mounjaro, 7.5 mg ASA Class: 2/3 VTE Risk/Caprini 5 pointsCaprini VTE ScoreHigh risk Recommended prophylaxis: Pneumatic compression devices AND low dose heparin OR low molecular weight heparin 1.8% VTE risk7-10 days total for duration of chemoprophylaxis Medically complex patient Recently 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 [facility] late April 2025 Pre-operative labs: CBC BMP Coags/PT-INR EKG normal sinus rhythm Per ACC/AHA guidelines, routine ECG is not indicated for asymptomatic patients who are undergoing low risk procedures We will fax over office note Reccomendations: no further workup needed Preop evaluation This is to inform you that I have examined our patient and after reviewing all clinically relevant information I find him, the patient, to be medically stable, and is at an acceptable (low risk) and fit to undergo Low risk surgical procedure as mentioned above under anesthesia with its attendant risks please review the attached history and physical will help you in the management of this patient Please do not hesitate to further contact me for information or questions Preoperative cardiac risk index risk/Luke JADA 0.3% risk of GA, cardiac arrest or other cardiac events intraoperatively or up to 30 days postop Vargas RCI 0 points, Class 1 risk 3.9% 30 day risk of GA or cardiac arrest Of note, some information is being carried forward from prior records for informational purposes only and is being cited so that efficiency, safety and quality of the patient's care is not compromised This note was prepared using voice recognition software and direct typing Please excuse inadvertent internal sales or typing errors, or uncorrected word substitutions Although every attempt has been made by the provider to proofread this document, occasional misspellings and typographical errors may still be present Due to the previous pandemic, and the use of personal protective equipment (PPE) This may decrease voice recognition accuracy Inadvertent internal sales errors may occur 05/25/2025 Type 2 diabetes mellitus without complication, without long-term current use of insulin (ICD-10 - E11.9) Acute Concerns/Problem List: 02/15/2025 Lets recheck thyroid function as well as acetylcholinesterase receptor antibodies Increase Mounjaro to 10 mg Good glycemic improvement Continue 175 mcg of Synthroid Please follow-up with all of your subspecialists Of note, some information is being carried forward from prior records for informational purposes only and is being cited so that efficiency, safety and quality of the patient's care is not compromised This note was prepared using voice recognition software and direct typing Please excuse inadvertent internal sales or typing errors, or uncorrected word substitutions Although every attempt has been made by the provider to proofread this document, occasional misspellings and typographical errors may still be present Due to the previous pandemic, and the use of personal protective equipment (PPE) This may decrease voice recognition accuracy Inadvertent internal sales errors may occur Plan Of Treatment Pending Test Test Name Order Date Echocardiogram 02/25/2025 Hemoglobin A1c 07/15/2019 PT AND PTT 06/19/2025 Lipid Panel 07/15/2019 Comp. Metabolic Panel (14) 07/15/2019 CBC 07/15/2019 Bone Density 06/22/2022 Urinalysis 07/15/2019 EKG 06/19/2025 CBC (COMPLETE BLOOD COUNT) 02/17/2018 COMPREHENSIVE METABOLIC PANEL 02/17/2018 HEMOGLOBIN A1C 02/17/2018 T4, TOTAL 05/27/2025 TSH 05/27/2025 URINALYSIS, COMPLETE 02/17/2018 XR Ribs w Chest 3+ Views RT 09/23/2019 PT/INR 06/19/2025 TOTAL T4 05/25/2025 LIPID PANEL, STANDARD 04/29/2023 LIPID PANEL, STANDARD 12/11/2024 LIPID PANEL, STANDARD 08/05/2025 LIPID PANEL, STANDARD 09/03/2022 COMPREHENSIVE METABOLIC PANEL 04/29/2023 COMPREHENSIVE METABOLIC PANEL 06/19/2025 COMPREHENSIVE METABOLIC PANEL 08/05/2025 COMPREHENSIVE METABOLIC PANEL 09/03/2022 COMPREHENSIVE METABOLIC PANEL 12/11/2024 MAGNESIUM 07/10/2024 CBC (INCLUDES DIFF/PLT) 08/05/2025 CBC (INCLUDES DIFF/PLT) 06/19/2025 CBC (INCLUDES DIFF/PLT) 09/03/2022 CBC (INCLUDES DIFF/PLT) 12/11/2024 URINALYSIS, COMPLETE 12/11/2024 URINALYSIS, COMPLETE 09/03/2022 URINALYSIS, COMPLETE 04/29/2023 HEMOGLOBIN A1c 04/29/2023 HEMOGLOBIN A1c 09/15/2024 HEMOGLOBIN A1c 09/03/2022 HEMOGLOBIN A1c 10/06/2024 HEMOGLOBIN A1c 08/05/2025 HEMOGLOBIN A1c 05/25/2025 HEMOGLOBIN A1c 12/11/2024 T4, FREE 04/29/2023 T4 (THYROXINE), TOTAL 12/11/2024 T4 (THYROXINE), TOTAL 10/06/2024 T4 (THYROXINE), TOTAL 09/15/2024 TSH 09/15/2024 TSH 04/29/2023 TSH 10/06/2024 TSH 09/03/2022 TSH 05/25/2025 TSH W/REFLEX TO FT4 12/11/2024 VITAMIN D,25-OH,TOTAL,IA 12/11/2024 VITAMIN D,25-OH,TOTAL,IA 09/03/2022 AChR Abs with Reflex to [id number] 05/2025 Next Appt Details Provider Name:RED BUTTS, 08/24/2025 11:00:00 AM, [address] [facility], [facility] [address], [place], [address], Insurance Providers Payer Name Payer Address Payer Phone Subscriber Number Group Number Insured Name Patient Relationship to Insured Coverage Start Date Coverage End Date Medicare Part B J14 [address] [place] [address] [id number] JB ARGUELLO Self - patient is the insured 8 [facility] [address] [place] [address] [id number] JB ARGUELLO Self - patient is the insured 0 Medications Administered Medication Instructions Date of Administration Dosage Notes MICC B12 INJECTION 04/24/2022 lot # [id number] MICC B12 INJECTION 05/08/2022 1 mL Lot #: [id number] MICC B12 INJECTION 05/23/2022 lot @ [id number] MICC B12 INJECTION 06/05/2022 1 mL Lot #: [id number] MICC B12 INJECTION 06/19/2022 lot # [id number] MICC B12 INJECTION 06/26/2022 lot # [id number] MICC B12 INJECTION 07/03/2022 1 mL Lot #: [id number] MICC B12 INJECTION 07/10/2022 lot # [id number] MICC B12 INJECTION 07/17/2022 lot # [id number] MICC B12 INJECTION 07/24/2022 MICC B12 INJECTION 07/31/2022 [id number] MICC B12 INJECTION 08/07/2022 lot # [id number] MICC B12 INJECTION 08/14/2022 MICC B12 INJECTION 08/21/2022 1 mL Lot #: [id number] MICC B12 INJECTION 08/28/2022 MICC B12 INJECTION 09/03/2022 lot # [id number] MICC B12 INJECTION 09/12/2022 lot [id number] MICC B12 INJECTION 09/19/2022 1 mL Lot #: [id number] MICC B12 INJECTION 09/26/2022 1 mL Lot # [id number] MICC B12 INJECTION 10/03/2022 lot # [id number] MICC B12 INJECTION 10/10/2022 1 mL Lot #: [id number] MICC B12 INJECTION 10/17/2022 1 mL Lot #: [id number] MICC B12 INJECTION 10/24/2022 MICC B12 INJECTION 10/31/2022 [id number] MICC B12 INJECTION 11/07/2022 lot # [id number] MICC B12 INJECTION 11/14/2022 1 mL Lot # [id number] MICC B12 INJECTION 11/21/2022 1 mL Lot # [id number] MICC B12 INJECTION 11/28/2022 [id number] MICC B12 INJECTION 12/05/2022 lot# [id number] MICC B12 INJECTION 12/12/2022 [id number] MICC B12 INJECTION 01/23/2023 1 mL Lot #: [id number] MICC B12 INJECTION 01/30/2023 lot # [id number] MICC B12 INJECTION 02/06/2023 1 mL Lot # [id number] MICC B12 INJECTION 02/13/2023 lot # [id number] MICC B12 INJECTION 02/20/2023 1 mL Lot # [id number] Prolia 05/09/2023 1 Medical (General) History Medical History History ICD Code Hypothyroidism asthma lupus anemia brain anuerysm Pulmonary fibrosis Osteoporosis Surgical History Surgery Date(Month/Year) carpal tunnel release colonoscopy 3 years hysterectomy 1978 gallbladder 1979 Hospitalization History Reason Date(Month/Year) [facility]- BLE edema, 2023 COVID 2020
--- OUTSIDE RECORDS SUMMARY | 2025-08-10 11:52 | XMS_ITS | Clinical Summary ---
Author Organization [facility], Address [address] [place] [address] Phone Care Team Providers Care Pill Packer Name Role Phone Shawna Ac MD Primary Care Provider [phone] Allergies Active Allergy Reactions Criticality Noted Date [...] age to complete this topic Insurance Medicare [facility] Care Teams Pill Packer Relationship Specialty Start Date End Date Shawna Ac MD [address] [place] [address] PCP - General 09/26/20
--- OUTSIDE RECORDS SUMMARY | 2025-08-10 11:52 | XMS_ITS | Clinical Summary ---
Author Organization [facility] Address [address] [place] [address] Care Team Providers Care Courtesy Bus Driver Name Role Phone Shawna Ac MD Primary Care Provider [phone] Allergies Active Allergy Reactions Criticality Noted Date [...] age to complete this topic Care Teams Courtesy Bus Driver Relationship Specialty Start Date End Date Shawna Ac MD [address] [place] [address] PCP - General Family Medicine 01/19/22
--- OUTSIDE RECORDS SUMMARY | 2025-08-10 11:52 | XMS_ITS | Patient Health Record ---
Author Organization [facility] Address [address] [facility] [place] [address] Care Team Providers Care Hand Ironer Name Role Phone Yashira THOMAS, Shawna Primary Care Provider Steph Dotson Unavailable [phone] Allergies Allergen (clinical drug ingredient) Drug/Non Drug Allergy documented on EMR Reaction Allergy Type Onset Date Status Adhesive Unknown Allergy Active Shellfish (FN) Shellfish-derived Products Unknown Drug Allergy Active Substance with 0-fqwretm-0-methylgluta ryl-coenzyme A reductase inhibitor mechanism of action [...] Problem Acquired hammer toe of right foot (7813980501914676 ) Other hammer toe(s) (acquired), right foot (M20.41) Active confirmed Problem Acquired hammer toe of left foot ([id number] ) Other hammer toe(s) (acquired), left foot (M20.42) Active confirmed Problem Polyneuropathy due to type 2 diabetes mellitus (066201856) Type 2 diabetes mellitus with diabetic polyneuropathy (E11.42) Active confirmed Plan Of Treatment Pending Test Test Name Order Date [id number] NAIL, 6 OR MORE 09/27/2020 [id number] NAIL, 1-5 11/29/2020 [id number] Plate 09/27/2020 [id number] SKIN LESIONS, OVER 4 09/27/19 21 [id number] SKIN LESIONS, OVER 4 11/30/19 21 [id number] DYSTROPHIC NAILS ANY # Insurance Providers Payer Name Payer Address Payer Phone Subscriber Number Group Number Insured Name Patient Relationship to Insured Coverage Start Date Coverage End Date Medicare [employer] [address] [place] [address] [phone] [id number] Naheed Luna Self - patient is the insured [facility] [address] [place] [address] [phone] [id number] Naheed Luna Self - patient is the [...] Surgery Date(Month/Year) tonsillectomy and adenoidectomy 2 D&C 5299-4379 hysterectomy 1978 oopherectomy 1978 appendectomy 1978 cholecystectomy 1979 disc surgeryC-5,C-6,SI,L5 S-1 Vplate ant erior 2002,2006,2008 carpal tunnel surgery 2003,2005 Hospitalization History Reason Date(Month/Year) [facility] hypokalemia, hypo magnesemia, thyroi d toxicosis 09/2020
--- OUTSIDE RECORDS SUMMARY | 2025-08-10 11:52 | XMS_ITS | Clinical Summary ---
Author Organization [facility] Address [address] [facility] [address] [place] [address] Phone Care Team Providers Care Regulatory Attorney Name Role Phone Aleksandr Ortiz MD Primary Care Provider [phone] Medications fluticasone propion/salmeterol (ADVAIR HFA INHL) Advair [...] file Insurance MEDICARE PART A & B [facility] MEDICARE PART A & [place] [address] MEDICARE PART A & B [facility] MEDICARE PART A & B [facility] MEDICARE PART A & B Member Subscriber Plan / Payer (Ef fective 2018-Present) Name:Naheed Luna Member ID:[id number] Relation to Subscriber:Self Name:Naheed Luna Subscriber ID:[id number] Payer ID:[id number] Group ID:Not on file Type:Medicare Address: [employer] [address] [place] [phone] [facility] MEDICARE PART A & B [facility] Care Teams Regulatory Attorney Relationship Specialty Start Date End Date Aleksandr Ortiz MD [address] [place] [id number] PCP - General Internal Medicine 12/24/22 Additional Source Comments The information contained in this document represents components of the legal health record. It is not the complete legal health record.[facility]
== END 2025-08-10 10:29 | disposition home or self-care (01) ==
PROVIDERS: PCP Nurse Practitioner Acute Care; Visit Provider Hospitalist
DX: J84.10 Pulmonary fibrosis, unspecified (principal); J98.4 Other disorders of lung; M32.9 Systemic lupus erythematosus, unspecified; J45.20 Mild intermittent asthma, uncomplicated; D80.1 Nonfamilial hypogammaglobulinemia; G47.33 Obstructive sleep apnea (adult) (pediatric); K52.9 Noninfective gastroenteritis and colitis, unspecified
CPT/HCPCS: 99214; G2211

== ENCOUNTER → 2025-08-10 09:56 | Outpatient (BNVA) | payer MEDICARE, BC, SELFPAY | PROVIDERS: PCP Nurse Practitioner Acute Care; Visit Provider Hospitalist | DX: J98.4 Other disorders of lung (principal); M32.9 Systemic lupus erythematosus, unspecified; J84.10 Pulmonary fibrosis, unspecified; J45.20 Mild intermittent asthma, uncomplicated; D80.1 Nonfamilial hypogammaglobulinemia; G47.33 Obstructive sleep apnea (adult) (pediatric); K52.9 Noninfective gastroenteritis and colitis, unspecified; Z99.89 Dependence on other enabling machines and devices | CPT/HCPCS: 99212 ==

== ENCOUNTER 2025-08-12 12:44 | Emergency (ER) | payer MEDICARE, BC, SELFPAY ==
--- NOTE | ~2025-08-12 | US_ITS ---
CLINICAL HISTORY: pain, hx of clots Venous duplex ultrasound right lower extremity Comparison: US/SR - US LOWER EXTREMITY VEINS BILATERAL - 09/10/24 21:41 EST Findings: The visualized deep veins are fully compressible with normal Doppler color flow and spectral tracings. No popliteal cyst. IMPRESSION: 1. Negative for right lower extremity deep vein thrombosis. This document has been electronically signed by: Maddy Coronel MD on 08/12/2025 15:28:12
--- NOTE | ~2025-08-12 | XR_ITS ---
CLINICAL HISTORY: R o pleural effusion 1 view chest x-ray Comparison: CR/MI/SR - XR CHEST 2 VIEWS - 09/10/24 14:14 EST Findings: No consolidation. Limited evaluation for pleural fluid no gross evidence of pleural effusion. There is a right-sided central venous port with its tip within the right atrium. There is cervical spine fusion hardware. There is mild scoliosis. There is no acute fracture. IMPRESSION: 1. No acute findings. This document has been electronically signed by: Maddy Coronel MD on 08/12/2025 15:29:36
[2025-08-12 12:46] VITALS: BP 174/66; PULSE 86; RESP 18; TEMP 36; O2SAT 100; BMI 32.8
--- NOTE | 2025-08-12 12:46 | ED.GENADULT ---
HPI - General Adult General Chief complaint: Extremity Problem Stated complaint: r/o blood clot Time Seen by Provider: 08/12/25 13:01 Source: patient Mode of arrival: ambulatory Limitations: no limitations History of Present Illness ED Provider: HPI narrative: 70-year-old woman presenting with cramping and pain in her right calf, called her PCP was told to come to the ER to evaluate for DVT, she reports history of PEs in the past, was never on blood thinners because of brain aneurysm, no shortness of breath no chest pain, 4 weeks ago had open biopsy of her muscles to right thigh, no swelling noted. Related Data Home Medications ?Medication ?Instructions ?Recorded ?Confirmed cetirizine 10 mg tablet (Zyrtec) 10 mg PO DAILY PRN Allergy Symptoms 01/17/24 08/02/25 losartan 25 mg tablet 25 mg PO DAILY 01/17/24 08/02/25 nebulizers 03/03/24 08/02/25 metformin 500 mg 24 hr 500 mg PO QPM 08/17/24 08/02/25 tablet,extended release (gastric retention) omeprazole 10 mg capsule,delayed 40 mg PO DAILY@0630 02/25/25 08/02/25 release belimumab 400 mg intravenous 1,100 mg IV Q4W 04/23/25 08/02/25 solution (Benlysta) immune glob,gamma (IgG) 10 20 g IV Q2W 04/23/25 08/02/25 %-gly-IgA over 50 mcg/mL injection solution (Gammagard Liquid) metoprolol succinate 50 mg 50 mg PO DAILY 04/23/25 08/02/25 tablet,extended release 24 hr ascorbic acid (vitamin C) 1,000 mg 1,000 mg PO DAILY 07/07/25 08/02/25 tablet (Vitamin C) ifrmwzgmge-abegckenmbfdw-lbadhmwc 1 cap PO DAILY PRN Headache 07/07/25 08/02/25 50 mg-300 mg-40 mg capsule calcium carbonate 500 mg PO BID 07/07/25 08/02/25 cholecalciferol (vitamin D3) 25 25 mcg PO DAILY 07/07/25 08/02/25 mcg (1,000 unit) tablet (Vitamin D3) lactobacillus combination no.4 3 3,000 mmu cells PO DAILY 07/07/25 08/02/25 billion cell capsule (Probiotic) levothyroxine 150 mcg tablet 150 mcg PO QAM 07/07/25 08/02/25 (Synthroid) magnesium oxide 400 mg PO DAILY 07/07/25 08/02/25 tirzepatide 10 mg/0.5 mL 10 mg subcut QWEEK 07/07/25 08/02/25 subcutaneous pen injector (Mounjaro) zinc gluconate 100 mg tablet 100 mg PO DAILY 07/07/25 08/02/25 Previous Rx's ?Medication ?Instructions ?Recorded furosemide 20 mg tablet (Lasix) 20 mg PO DAILY PRN weight gain 30 02/25/25 days #30 tabs roflumilast 250 mcg tablet 250 mcg PO DAILY 30 days #30 tabs 05/06/25 (Daliresp) umeclidinium 62.5 mcg/actuation 1 inh inhalation DAILY 30 days #30 05/06/25 blister powder for inhalation ea (Incruse Ellipta) ibuprofen 600 mg tablet 600 mg PO Q6H PRN pain #15 tabs 07/09/25 tramadol 50 mg tablet 50 mg PO Q6H PRN pain #12 tabs 07/09/25 ipratropium bromide 42 mcg (0.06 2 spray intranasal TID PRN allergy 08/10/25 %) nasal spray symptoms #15 mL levalbuterol tartrate 45 2 puff inhalation Q4H PRN wheezing 08/10/25 mcg/actuation aerosol inhaler 30 days #15 grams roflumilast 500 mcg tablet 500 mcg PO DAILY 90 days #90 tabs 08/10/25 (Daliresp) Allergies Allergy/AdvReac Type Severity Reaction Status Date / Time azithromycin (From Zithromax) Allergy Severe Chest Pain Verified 08/10/25 10:01 ciprofloxacin (From Cipro) Allergy Severe Muscle Pain Verified 08/10/25 10:01 denosumab (From Prolia) Allergy Intermediate Muscle Pain Verified 08/10/25 10:01 metronidazole (From Flagyl) Allergy Vomiting Verified 08/12/25 12:51 rofecoxib (From Vioxx) Allergy Unknown Verified 08/10/25 10:01 Czeoian-YPY-FsU Reductase Allergy Muscle Verified 08/10/25 10:01 Inhibitor cramps Iodinated Contrast Media AdvReac Intermediate Unknown Verified 08/10/25 10:01 Review of Systems Constitutional: Constitutional: Reports as per HPI [facility] Past Medical History Medical History Complication of general anesthesia Osteoarthritis PVCs (premature ventricular contractions) Fatty liver Edema COVID-19 Osteoporosis Brain aneurysm Anemia Thyroid disease Muscle weakness Colitis Irritable bowel syndrome Multiple sclerosis Raynaud's disease Lower abdominal pain Abnormal finding on EKG MAURO treated with BiPAP Hypogammaglobulinemia Asthma Lupus Pneumonitis Pulmonary fibrosis Surgical History (Updated 08/02/25 @ 11:23 by Stefani Cunningham MD) Hx of surgical procedure (07/09/25) History of tonsillectomy and adenoidectomy Hx of cholecystectomy Hx of hysterectomy History of carpal tunnel release H/O colonoscopy Family History Family History Maternal Aunt Brain abscess Bone cancer Maternal Aunt Lung cancer Melanoma Maternal Uncle Melanoma Bone cancer Lung cancer Mother Thyroid cancer Uterine cancer Social History Social History Household Members: Spouse Housing: House Do you presently have visiting nurse or other home services: No Alcohol intake: current Alcohol intake frequency: does not drink Comment: pt refusing alarms Patient Tobacco Use Status: Former Tobacco user Tobacco use type: Cigarette Years Smoked: 20 Years e-Cigarette/Vaping Use: Never Used Advance Directives: No Advance Directives Information Provided: Yes service: No Current occupational status: retired Physical Exam ED Exam Exam: ?General: ??looks age appropriate ?Resp: ?No wheezing rales rhonchi no stridor moving air well Abd: ?Bowel sounds are present, no tenderness no rebound no rigidity MSK: FROM, strength 5/5 all extremities Skin: Warm, dry, intact, no lower extremity edema ?Neuro: ?Alert and oriented x3, moving upper and lower extremities symmetrically, no obvious facial asymmetry noted, cranial nerves 2-12 intact Vital Signs: Vital Signs - 24 hr 08/12/25 12:46 Temperature 96.8 F Pulse Rate 86 Respiratory Rate 18 Blood Pressure 174/66 H Pulse Oximetry 100 Oxygen Delivery Method Room Air BMI result Body Mass Index 32.8 Course Course Course Narrative: This is a rapid medical exam performed by Lazaro Strickland NP: Additional HPI, ROS, PE not included below will be deferred to primary provider. Patient is a 70y/o F with hx of PE not currently anticoagulated, s/p open biopsy of R thigh 4 weeks ago, HTN, Lupus, asthma presenting with complaint of right calf pain since 3am. Plan: labs, U/S Medical Decision Making Medical Decision Making [facility] Narrative: 1:20 PM 08/12/2025 (Dr. Best Sumner): Reassuring physical examination without any evidence for DVT she does have history of DVTs, we will obtain ultrasound, no hypoxia tachycardic to suspect PE, no evidence for arterial insufficiency on exam Patient also wanted to be evaluated for pleural effusion though she has and I have any shortness of breath but as long as she is here I will obtain a chest x-ray, she reports history of pleural effusion Differential Diagnosis Differential Diagnoses: The differential diagnosis associated with the presentation includes (DVT, PE, Granados's cyst, calf strain) Admission/Observation Consideration of admission/observation: Escalation of care including admission/observation considered Independent Interpretation I performed an independent interpretation of an: Plain X-Ray (No evidence for pulmonary edema) Radiology Impression Discussion of test interpretation with radiology: I have reviewed the radiologist's reading. Radiologist Impression: IMPRESSION: 1. Negative for right lower extremity deep vein thrombosis. Discharge Plan Discharge Clinical Impression: Calf cramp Patient Disposition: Home, Self-Care Additional Instructions: No evidence for blood clots on ultrasound and your chest x-ray did not reveal any abnormalities Follow up with your PCP Any other issues concerns come back to the ER Prescriptions: No Action Gammagard Liquid 10 % solution 20 g IV Q2W metoprolol succinate 50 mg tablet extended release 24 hr 50 mg PO DAILY Benlysta 400 mg Recon Soln 1,100 mg IV Q4W Rx Instructions: administer over 60 mins metformin 500 mg Tablet,Er Keesha.Retention 24 Hr 500 mg PO QPM levothyroxine [Synthroid] 150 mcg tablet 150 mcg PO QAM bsxgvtkakz-ysqoqyiudbdhh-jvbz 50-300-40 mg capsule 1 cap PO DAILY PRN (Reason: Headache) ascorbic acid (vitamin C) [Vitamin C] 1,000 mg Tablet 1,000 mg PO DAILY zinc gluconate [Zinc Natural] 100 mg Tablet 100 mg PO DAILY calcium carbonate [Calcium 500] 500 mg calcium (1,250 mg) Tablet 500 mg PO BID cholecalciferol (vitamin D3) [Vitamin D3] 25 mcg (1,000 unit) Tablet 25 mcg PO DAILY magnesium oxide 400 mg magnesium Capsule 400 mg PO DAILY Probiotic 3 billion cell Capsule 3,000 mmu cells PO DAILY Rx Instructions: administer with a meal Mounjaro 10 mg/0.5 mL pen injector 10 mg SUBCUT QWEEK tramadol 50 mg tablet 50 mg PO Q6H PRN (Reason: pain) Qty: 12 0RF ibuprofen 600 mg tablet 600 mg PO Q6H PRN (Reason: pain) Qty: 15 0RF losartan 25 mg tablet 25 mg PO DAILY cetirizine [Zyrtec] 10 mg tablet 10 mg PO DAILY PRN (Reason: Allergy Symptoms) omeprazole 10 mg capsule,delayed release(DR/EC) 40 mg PO DAILY@0630 ([facility] [place] nebulizers Misc See Rx Instructions .Route Rx Instructions: As directed furosemide [Lasix] 20 mg tablet 20 mg PO DAILY PRN (Reason: weight gain) 30 Days Qty: 30 0RF roflumilast [Daliresp] 250 mcg tablet 250 mcg PO DAILY 30 Days Qty: 30 11RF Incruse Ellipta 62.5 mcg/actuation blister with device 1 inh inhalation DAILY 30 Days Qty: 30 11RF roflumilast [Daliresp] 500 mcg tablet 500 mcg PO DAILY 90 Days Qty: 90 3RF levalbuterol tartrate 45 mcg/actuation HFA aerosol inhaler 2 puff INHALATION Q4H PRN (Reason: wheezing) 30 Days Qty: 15 11RF ipratropium bromide 42 mcg (0.06 %) spray,non-aerosol 2 spray intranasal TID PRN (Reason: allergy symptoms) Qty: 15 6RF Rx Instructions: administer into each nostril Print Language: Yoruba
--- OUTSIDE RECORDS SUMMARY | 2025-08-12 13:08 | XMS_ITS | Patient Health Record ---
[facility] Address [address] [facility] [place] [address] Care Team Providers Care Community Health Education Coordinator Name Role Phone Yashira THOMAS, Shawna Primary Care Provider Steph Dotson Unavailable [phone] Allergies Allergen (clinical drug ingredient) Drug/Non Drug Allergy documented on EMR Reaction Allergy Type Onset Date Status Adhesive Unknown Allergy Active Shellfish (FN) Shellfish-derived Products Unknown Drug Allergy Active Substance with 0-yjcohud-3-methylgluta ryl-coenzyme A reductase inhibitor mechanism of action [...] Problem Acquired hammer toe of right foot (7426571762765831 ) Other hammer toe(s) (acquired), right foot (M20.41) Active confirmed Problem Acquired hammer toe of left foot (0118366520293566 ) Other hammer toe(s) (acquired), left foot (M20.42) Active confirmed Problem Polyneuropathy due to type 2 diabetes mellitus (897133996) Type 2 diabetes mellitus with diabetic polyneuropathy (E11.42) Active confirmed Plan Of Treatment Pending Test Test Name Order Date [id number] NAIL, 6 OR MORE 09/27/2020 [id number] NAIL, 1-5 11/29/2020 [id number] Plate 09/27/2020 [id number] SKIN LESIONS, OVER 4 09/27/19 21 [id number] SKIN LESIONS, OVER 4 11/30/19 21 [id number] DYSTROPHIC NAILS ANY # Insurance Providers Payer Name Payer Address Payer Phone Subscriber Number Group Number Insured Name Patient Relationship to Insured Coverage Start Date Coverage End Date [employer] [address] [place] [address] [phone] [id number] Naheed Luna Self - patient is the insured [facility] [address] [place] [address] [phone] [id number] Naheed Luna Self - patient is the [...] Surgery Date(Month/Year) tonsillectomy and adenoidectomy 2 D&C 4235-4733 hysterectomy 1978 oopherectomy 1978 appendectomy 1978 cholecystectomy 1979 disc surgeryC-5,C-6,SI,L5 S-1 Vplate ant erior 2002,2006,2008 carpal tunnel surgery 2003,2005 Hospitalization History Reason Date(Month/Year) [facility] hypokalemia, hypo magnesemia, thyroi d toxicosis 09/2020
--- OUTSIDE RECORDS SUMMARY | 2025-08-12 13:08 | XMS_ITS | Clinical Summary ---
Author Organization [facility] Address [address] [place] [address] Phone Care Team Providers Care Piggery Worker Name Role Phone Aleksandr Ortiz MD Primary [...] file Insurance MEDICARE PART A & B [facility] MEDICARE PART A & [place] [address] MEDICARE PART A & B [facility] MEDICARE PART A & B [facility] MEDICARE PART A & B Member Subscriber Plan / Payer (Ef fective 2018-Present) Name:Naheed Luna Member ID:[id number] Relation to Subscriber:Self Name:Naheed Luna Subscriber ID:[id number] Payer ID:[id number] Group ID:Not on file Type:Medicare Address: [employer] [address] [place] [phone] [facility] MEDICARE PART A & B [facility] Care Teams Piggery Worker Relationship Specialty Start Date End Date Aleksandr Ortiz MD [address] [place] [id number] PCP - General Internal Medicine 12/24/22 Additional Source Comments The information contained in this document represents components of the legal health record. It is not the complete legal health record.[facility]
--- OUTSIDE RECORDS SUMMARY | 2025-08-12 13:09 | XMS_ITS | Patient Health Record ---
Author Organization [facility] [address] Address [address] [place] [address] Care Team Providers Care Repairing Calibrator Name Role Phone RED BUTTS Unavailable [phone] SHARAN JONES Unavailable [phone] Allergies Allergen (clinical drug ingredient) Drug/Non Drug Allergy documented on EMR Reaction Allergy Type Onset Date Status Substance with 1-zkjygku-8-methylgl utaryl-coenzyme A reductase inhibitor mechanism of action (substance) statins (uncoded) Unknown Allergy Active denosumab Prolia stomach upset Drug Allergy Act jere azithromycin Azithromycin Unknown Drug Allergy A ctive ciprofloxacin Ciprofloxacin Unknown Drug Allergy Active Results Component Value Reference Range Flag Notes TSH Rfx on Abnormal to Free [id number] Reviewed date:02/13/2025 02:15:55 PM Interpretation: Performing Lab:[facility], [address] [facility], Phone - [phone], Director - MDJodry Notes/Report: TSH 6.190 0.450-4.500 uIU/mL H T4,Free (Direct) 1.56 0.82-1.77 ng/dL Comp. Metabolic Panel (14)-3 42406 Reviewed date:02/13/2025 02:15:55 PM Interpretation: Performing Lab:[facility] [place], [address] [facility], Phone - [phone], Director - MDJodry Notes/Report: Glucose 117 70-99 mg/dL H BUN [...] IU/L ALT (SGPT) 20 0-32 IU/L Lipid Panel-[id number] Reviewed date:02/13/2025 02:15:55 PM Interpretation: Performing Lab:[facility], [facility], [place], Phone - [phone], Director - Lalo Notes/Report: Cholesterol, Total 191 100-199 mg/dL Triglycerides 279 0-149 mg/dL H HDL Cholesterol 36 >39 mg/dL L VLDL Cholesterol Stanford 48 5-40 mg/dL H LDL Chol Calc (NIH) 107 0-99 mg/dL H Vitamin D, 36-Pexclem-087630 Reviewed date:02/13/2025 02:15:55 PM Interpretation: Performing Lab:[facility], [facility], [place], Phone - [phone], Director - Lalo Notes/Report: Vitamin D, 25-Hydroxy 95.2 30.0-100.0 ng/mL Vitamin D deficiency has been defined by the [place] of [employer] and an Endocrine Society practice guideline as a level of serum 25-OH vitamin D less than 20 ng/mL (1,2). The Endocrine Society went on to further define vitamin D insufficiency as a level between 21 and 29 ng/mL (2). 1. IOM ([place] of [employer]). 2010. Dietary reference intakes for calcium and D. [place]: The National Academies Press. 2. Rigoberto MF, Russel NC, Chance SIERRA, et al. Evaluation, treatment, and prevention of vitamin D deficiency: an Endocrine Society clinical practice guideline. JCEM. 2010; 96(7):1911-30. CBC With Differential/Platel et-436133 Reviewed date:02/13/2025 02:15:55 PM Interpretation: Performing Lab:[facility], [address] [facility], Phone - [phone], Director - [facility] Notes/Report: WBC 10.4 3.4-10.8 x10E3/uL RBC 4.90 [...] Immature Grans (Abs) 0.1 0.0-0.1 x10E3/uL Urinalysis, Complete-[id number] Reviewed date:02/13/2025 02:15:55 PM Interpretation: Performing Lab:[facility] [place], [address] [place] [address], Phone - [phone], Director - Lalo Notes/Report: Specific [place] 1.025 1.005-1.030 pH 5.0 5.0-7.5 Urine-Color Yellow [...] N/A Bacteria None seen None seen/Few Hemoglobin N7m-[id number] Reviewed date:02/13/2025 02:15:55 PM Interpretation: Performing Lab:[facility] [address] [place] [address], Phone - [phone], Director - Lalo Notes/Report: Hemoglobin A1c 7.1 4.8-5.6 % H . Prediabetes: 5.7 - 6.4 Diabetes: >6.4 Glycemic control for adults with diabetes: <7.0 Thyroxine (T4)-[id number] Reviewed date:02/13/2025 02:15:55 PM Interpretation: Performing Lab:[facility], [address] [place] [address], Phone - [phone], - Lalo Notes/Report: Thyroxine (T4) 9.4 4.5-12.0 ug/dL THYROID STIMULATING HORMONE Reviewed date:05/25/2025 02:39:16 PM Interpretation: Performing Lab: Notes/Report: TSH 0.33 0.40-4.00 mcIU/mL L HEMOGLOBIN A1C Reviewed date:05/26/2025 07:57:03 AM Interpretation: Performing Lab: Notes/Report: Hemoglobin A1C 6.3 <6.5 % Mean Bld Glu Estim. 134 THYROXINE TOTAL Reviewed date:05/27/2025 01:44:18 PM Interpretation: Performing Lab: Notes/Report: T4, Total 12.8 4.5-10.9 mcg/dL H EKG (Not yet reviewed by pro vider) Interpretation: Performing Lab: Notes/Report: ECGDiastolicBP 0 ECGHr 70 ECGPRInterval 130 ECGPWaveAxis -18 ECGQRSDuration 96 ECGQrsWaveAxis -11 ECGQTcInterval 415 ECGQTInterval 398 ECGSystolicBP 0 ECGTWaveAxis 17 RR_DiastolicBP 0 RR_MaxRRInterval 0 RR_MeanHR 0 RR_MeanRRInterval 0 RR_MinRRInterval 0 RR_NumBeats 0 RR_NumNormalBeats 0 RR_SystolicBP 0 Thyroxine (T4)-[id number] Reviewed date:10/21/2024 08:32:30 AM Interpretation: Performing Lab:[facility] [address] [place] [address], [place], Phone - [phone], Director Jake May Notes/Report: Thyroxine (T4) 11.2 4.5-12.0 ug/dL Hemoglobin A4m-003542 Reviewed date:10/21/2024 08:32:30 AM Interpretation: Performing Lab:[facility], [facility], Phone - [phone], Director - Lalo Notes/Report: Hemoglobin A1c 8.9 4.8-5.6 % H . Prediabetes: 5.7 - 6.4 Diabetes: >6.4 Glycemic control for adults with diabetes: <7.0 TSH-023806 Reviewed date:10/21/2024 08:32:30 AM Interpretation: Performing Lab:[facility], [address] [facility], Phone - [phone], Director - Lalo Notes/Report: TSH 2.810 0.450-4.500 uIU/mL MUSK ANTIBODY Reviewed date:06/01/2025 07:57:41 AM Interpretation: [...] developed and its performance characteristics determined by [facility]. It has not been cleared or approved by the U.S. Food and Drug Administration. This test was performed in a CLIA-certified laboratory and is intended for clinical purposes. Performed By: [facility] [address] [place] [address] Irrigator: Raffi Navas MD, PhD CLIA Number: [id number] MuSK Ab IgG CBA IFA Titer, Serum TNP ACETYLCHOLINE RECEPTOR, BIND ING Reviewed date:06/01/2025 07:57:41 AM Interpretation: Performing Lab: Notes/Report: Acetylcholine Receptor Binding Antibody <0.30 Reference Ranges for Acetylcholine Receptor Binding Antibody: Negative: < or =0.30 nmol/L Equivocal: 0.31-0.49 nmol/L Positive: > or =0.50 nmol/L Test Performed at: [facility] [address] [address] Tim Lubin MD, PhD, ALEX Thyroxine (T4)-[id number] Reviewed date:09/30/2024 08:20:48 AM Interpretation: Performing Lab:[facility] [place], [address] [place] [address], [place], Phone - [phone], Director - MDLeoniladry Notes/Report: Thyroxine (T4) 10.6 4.5-12.0 ug/dL Hemoglobin T5e-[id number] Reviewed date:09/30/2024 08:20:48 AM Interpretation: Performing Lab:[facility] [place], [address] [place] [address], [place], Phone - [phone], Director - MDLeoniladry Notes/Report: Hemoglobin A1c 9.1 4.8-5.6 % H . Prediabetes: 5.7 - 6.4 Diabetes: >6.4 Glycemic control for adults with diabetes: <7.0 TSH-[id number] Reviewed date:09/30/2024 08:20:48 AM Interpretation: Performing Lab:[facility] [place], [address] [place] [address], [place], Phone - [phone], Director - Johny Notes/Report: TSH 6.050 0.450-4.500 uIU/mL H Reason For Referral Reason [facility] Diagnosis 1 Chronic stasis derma titis (I87.2) Referral Organization [facility] [address] Referring Provider First Name RED Referring Provider Last Name BECKIE Referring Provider Speciality Internal M edicine Referred Provider undefined Referred Provider Specialty Vascular Joao meaghan General Notes Pam Valadez 08:57:33 AM > Referral form faxed to [phone]. Clinical Notes Maria Guadalupe Robert 02:56:33 PM >, Maria Guadalupe Robert 01/19/2025 02:09:58 PM > The patient was seen on 01/07 and have a follow up appointment on 03/10 Referral Priority Routine Reason echocardiogram Diagnosis 1 Cardiomegaly (I51.7) Referral Organization [facility] [address] Referring Provider First Name SHARAN Referring Provider Last Name KAREN Referring Provider Speciality Internal M edicine Referred Provider Specialty Cardiology General Notes Danny Cheyanne 02/25 02:51:53 PM >faxed to [facility] cardiology at fax #[phone], phone # [phone] Clinical Notes Delgado, Cheyanne 02/25 03:00:46 PM > Jakob mane Redena 03/10/2025 08:43:34 AM > The patient was seen on 02/26 and has a follow up on 03/18 at 2 pm Referral Priority Routine Medications Medication SIG (Take, Route, Frequency, Duration) Notes Start Date End Date Status Berberine Complex Ac tive Mounjaro 10 MG/0.5ML [...] tablet Ora lly Once a day Active Bzxqkdluuj-PPAJ-Ebyzsswl 50-300-40 MG Capsule TAKE 1 CAPSULE ONCE [...] Tablet Delayed Release as directed Orally Active Synthroid 150 MCG Tablet 1 tablet in the morning on an empty stomach Orally Once a day; Duration: 90 days Active Levothyroxine Sodium 175 MCG Tablet 1 [...] Status W/U Status Risk Notes Problem Hypothyroidism (90392029) Hypothyroidism, unspecified (E03.9) Active confirmed Problem Obesity (762970177) Other obesit y (E66.8) Active confirmed Problem Mixed hyperlipidemia (133126374) Mixed hyperlipidemia (E78.2) Active confirmed Problem Hyperlipidemia (53661406) Hyperlipidemia, unspecified (E78.5) Active confirmed Problem Chronic pain (17796421) Other chronic pain (G89.29) Active confirmed Problem Chronic pain syndrom e (159098142) Chronic pain syndrome (G89.4) Active confirmed Problem Cardiomegaly (5342122) Cardiomegaly (I51.7) Acti ve confirmed Problem Systemic lupus erythematosus (73096926) Systemic lupus erythematosus, unspecified (M32.9) Active confirmed Problem Age-related osteoporosis (615334139) Age-related osteoporosis without current pathological fracture (M81.0) Active confirmed Problem Lipid screening (727221124) Encounter for screening for lipoid disorders (Z13.220) Active confirmed Problem Body mass index 35.0 0 to 39.99 (091747295739743) Body mass index (BMI) 38.0-38.9, adult (Z68.38) Active confirmed Problem Body mass index 35.0 0 to 39.99 (606464765399435) Body mass index (BMI) 39.0-39.9, adult (Z68.39) Active confirmed Problem Chronic idiopathic constipation (87017390) Chronic idiopathic constipation (K59.04) Active confirmed Problem Morbid obesity (799505792) Morbid obesity (E66.01) Active confirmed Problem Disorder due to type 2 diabetes mellitus (471885397) Type 2 diabetes mellitus with complication, unspecified whether intermediate designer insulin use (E11.8) Active confirmed Problem Acquired hypothyroidism (052383416) Acquired hypothyroidism (E03.9) Active confirmed Problem Adult health examination (156377016) Adult general medical exam (Z00.00) Active confirmed Problem Vitamin D deficiency (58527088) Vitamin D deficiency (E55.9) Active confirmed Problem Essential hypertensi on (71196945) Hypertension, unspecified type (I10) Active confirmed Problem Type II diabetes mellitus without complication (584433417) Type 2 diabetes mellitus without complication, without long-term current use of insulin (E11.9) Active confirmed Problem Obesity (621056166) Obesity (BMI 30-39.9) (E66.9) Active confirmed Problem Progressive fibrosin g interstitial lung disease (disorder) (498348761178742) Interstitial lung disease with progressive fibrotic phenotype in diseases classified elsewhere (J84.170) Active confirmed Problem Obese class II (318736328118805) BMI 35.0-35.9,adult (Z68.35) Active confirmed Problem Pulmonary fibrosis (75075316) Pulmonary fibrosis (J84.10) Active confirmed Problem Body mass index 40+ - severely obese (169976974) Body mass index [BMI] 40.0-44.9, adult (Z68.41) Active confirmed Problem Chronic venous insufficiency (34159227) Chronic venous insufficiency (I87.2) Active confirmed Problem Avitaminosis D (50950267) Avitaminosis D (E55.9) Active confirmed Problem Abnormal metabolic state due to diabetes mellitus (678546546) Abnormal metabolic state due to diabetes mellitus (E11.9) Active confirmed Problem Chronic interstitial cystitis (179725205) Interstitial cystitis (N30.10) Active confirmed Problem 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) Active confirmed Problem Other osteoporos is with current pathological fracture with routine healing, subsequent encounter (M80.80XD) Active confirmed Problem Peripheral venous insufficiency (73271571) Chronic stasis dermatitis (I87.2) Active confirmed Problem Monoclonal gammopath y of uncertain significance (disorder) (822342819) MGUS (monoclonal gammopathy of unknown significance) (D47.2) Active confirmed Problem Cardiomegaly (7446626) Mild card iomegaly (I51.7) Active confirmed Vital Signs Heart Rate 87 /min 05/25/2025 Oximetry 98 % 06/19/2025 Blood pressure diastolic 80 mm Hg 06/19/2025 Height 66 in 06/19/2025 Blood pressure systolic 126 mm Hg 06/19/2025 Weight 224 lbs 06/19/2025 BMI 36.15 kg/m2 06/19/2025 Encounters Encounter Location Date Provider Diagnosis [facility] [address] [address] 09/15/2024 [place] BORHOT Atypical chest pain R07.89 ; Bilateral lower extremity edema R60.0 ; Chronic venous insufficiency I87.2 ; Acquired hypothyroidism E03.9 ; Abnormal metabolic state due to diabetes mellitus E11.9 and Hypothyroidism, unspecified E03.9 [facility] [address] [address] 10/06/2024 [place] Atypical chest pain R07.89 ; Acquired hypothyroidism E03.9 ; Bilateral lower extremity edema R60.0 ; Chronic venous insufficiency I87.2 ; Abnormal metabolic state due to diabetes mellitus E11.9 ; Pulmonary fibrosis J84.10 and Hypothyroidism, unspecified E03.9 [facility] [address] [address] 12/11/2024 [place] Atypical chest pain R07.89 ; Acquired hypothyroidism E03.9 ; Bilateral lower extremity edema R60.0 ; Chronic venous insufficiency I87.2 ; Abnormal metabolic state due to diabetes mellitus E11.9 ; Pulmonary fibrosis J84.10 ; Hypothyroidism, unspecified E03.9 and Chronic pain syndrome G89.4 [facility] [address] [address] 02/15/2025 RED BUTTS Annual physical exam Z00.00 [...] cardiomegaly I51.[address] [facility] [address] [place] [address] 05/08/2025 RED BUTTS Acute abdominal pain R10.9 [facility] [address] [address] 05/25/2025 RED BUTTS MGUS (monoclonal bernadine mopathy [...] insulin E11.[address] [facility] [address] [place] [address] 06/19/2025 REDJOSE L ORTEGAT MGUS (monoclonal bernadine [...] E11.[address] [facility] [address] [place] [address] 09/01/2024 TALAL JONES [facility] [address] [place] [address] 09/14/2024 [place] [facility] [address] [place] [address] 09/17/2024 [place] Atypical chest pain R07.89 [facility] [address] [place] [address] 09/18/2024 [place] Atypical chest pain R07.[address] [facility] [address] [place] [address] 09/28/2024 TALAL JONES [facility] [address] [place] [address] 10/14/2024 [place] [facility] [address] [place] [address] 10/15/2024 [place] [facility] [address] [place] [address] 10/15/2024 [place] [facility] [address] [place] [address] 10/22/2024 [place] [facility] [address] [place] [address] 12/24/2024 [place] [facility] [address] [place] [address] 12/24/2024 [place] [facility] [address] [place] [address] 01/07/2025 [place] [facility] [address] [place] [address] 02/25/2025 [place] Cardiomegaly I51.7 [facility] [address] [place] 03/31/2025 SHARAN JONES [facility] [address] 04/30/2025 SHARAN JONES [facility] [address] [place] [address] 05/27/2025 RED BUTTS Hypothyroidism, unsp ecified E03.9 [facility] [address] 06/09/2025 RED BUTTS [facility] [address] 06/17/2025 RED BUTTS [facility] [address] 07/21/2025 RED BUTTS MGUS (monoclonal bernadine mopathy of unknown significance) D47.2 [facility] [address] 07/26/2025 RED BUTTS [facility] [address] [place] [address] 07/26/2025 RED BUTTS [facility] [address] 08/05/2025 RED BUTTS Type 2 diabetes gregg itus with complication, unspecified whether intermediate designer insulin use E11.8 and Hyperlipidemia, unspecified E78.5 [facility] [address] 08/11/2025 RED BUTTS [facility] [address] 09/18/2024 SHARAN JONES [facility] [address] 02/16/2025 RED BUTTS [facility] [address] 06/24/2025 RED BUTTS Assessments Encounter Date Diagnosis (ICD [...] software and direct typing Please excuse inadvertent auto haulaway driver or typing errors, or uncorrected word substitutions Although every attempt has been made by the provider to proofread this document, occasional misspellings and typographical errors may still be present Due to the previous pandemic, and the use of personal protective equipment (PPE) This may decrease voice recognition accuracy Inadvertent auto haulaway driver errors may occur 09/15/2024 Bilateral lower extremity [...] software and direct typing Please excuse inadvertent auto haulaway driver or typing errors, or uncorrected word substitutions Although every attempt has been made by the provider to proofread this document, occasional misspellings and typographical errors may still be present Due to the previous pandemic, and the use of personal protective equipment (PPE) This may decrease voice recognition accuracy Inadvertent auto haulaway driver errors may occur 09/17/2024 Atypical chest pain [...] software and direct typing Please excuse inadvertent auto haulaway driver or typing errors, or uncorrected word substitutions Although every attempt has been made by the provider to proofread this document, occasional misspellings and typographical errors may still be present Due to the previous pandemic, and the use of personal protective equipment (PPE) This may decrease voice recognition accuracy Inadvertent auto haulaway driver errors may occur 02/15/2025 Encounter for screening [...] software and direct typing Please excuse inadvertent auto haulaway driver or typing errors, or uncorrected word substitutions Although every attempt has been made by the provider to proofread this document, occasional misspellings and typographical errors may still be present Due to the previous pandemic, and the use of personal protective equipment (PPE) This may decrease voice recognition accuracy Inadvertent auto haulaway driver errors may occur 02/15/2025 Annual physical exam [...] software and direct typing Please excuse inadvertent auto haulaway driver or typing errors, or uncorrected word substitutions Although every attempt has been made by the provider to proofread this document, occasional misspellings and typographical errors may still be present Due to the previous pandemic, and the use of personal protective equipment (PPE) This may decrease voice recognition accuracy Inadvertent auto haulaway driver errors may occur 02/25/2025 Cardiomegaly (ICD-10 - I51.7) 07/21/2025 MGUS (monoclonal gammopathy of unknown significance) (ICD-10 - D47.2) 08/05/2025 Type 2 diabetes mellitus with complication, unspecified whether group home insulin use (ICD-10 - E11.8) 06/19/2025 Preoperative clearan ce (ICD-10 - Z01.818) patient here for preoperative clearance and risk stratification Patient is scheduled to undergo Right thigh muscle biopsy, Upcoming date, with [facility], Dr. Del Rio Type of [...] complex patient Recently 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 [facility] late April 2025 Pre-operative labs: CBC BMP [...] risk index risk/Luke JADA 0.3% risk of NH, cardiac arrest or other cardiac events intraoperatively or up to 30 days postop Vargas RCI 0 points, Class 1 risk 3.9% 30 day risk of NH or cardiac arrest Of note, some information is being carried forward from prior records for informational purposes only and is being cited so that efficiency, safety and quality of the patient's care is not compromised This note was prepared using voice recognition software and direct typing Please excuse inadvertent auto haulaway driver or typing errors, or uncorrected word substitutions Although every attempt has been made by the provider to proofread this document, occasional misspellings and typographical errors may still be present Due to the previous pandemic, and the use of personal protective equipment (PPE) This may decrease voice recognition accuracy Inadvertent auto haulaway driver errors may occur 05/27/2025 Hypothyroidism, unspecified (ICD-10 - E03.9) 06/19/2025 MGUS (monoclonal gammopathy of unknown significance) [...] complex patient Recently 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 [facility] late April 2025 Pre-operative labs: CBC BMP [...] risk index risk/Luke JADA 0.3% risk of NH, cardiac arrest or other cardiac events intraoperatively or up to 30 days postop Vargas RCI 0 points, Class 1 risk 3.9% 30 day risk of NH or cardiac arrest Of note, some information is being carried forward from prior records for informational purposes only and is being cited so that efficiency, safety and quality of the patient's care is not compromised This note was prepared using voice recognition software and direct typing Please excuse inadvertent auto haulaway driver or typing errors, or uncorrected word substitutions Although every attempt has been made by the provider to proofread this document, occasional misspellings and typographical errors may still be present Due to the previous pandemic, and the use of personal protective equipment (PPE) This may decrease voice recognition accuracy Inadvertent auto haulaway driver errors may occur 05/25/2025 Hypogammaglobulinemi a (ICD-10 [...] software and direct typing Please excuse inadvertent auto haulaway driver or typing errors, or uncorrected word substitutions Although every attempt has been made by the provider to proofread this document, occasional misspellings and typographical errors may still be present Due to the previous pandemic, and the use of personal protective equipment (PPE) This may decrease voice recognition accuracy Inadvertent auto haulaway driver errors may occur 05/25/2025 MGUS (monoclonal gammopathy of unknown significance) [...] software and direct typing Please excuse inadvertent auto haulaway driver or typing errors, or uncorrected word substitutions Although every attempt has been made by the provider to proofread this document, occasional misspellings and typographical errors may still be present Due to the previous pandemic, and the use of personal protective equipment (PPE) This may decrease voice recognition accuracy Inadvertent auto haulaway driver errors may occur 05/08/2025 Acute abdominal pain (ICD-10 - R10.9) Stable exam today Of note, some information is being carried forward from prior records for informational purposes only and is being cited so that efficiency, safety and quality of the patient's care is not compromised This note was prepared using voice recognition software and direct typing Please excuse inadvertent auto haulaway driver or typing errors, or uncorrected word substitutions Although every attempt has been made by the provider to proofread this document, occasional misspellings and typographical errors may still be present Due to the previous pandemic, and the use of personal protective equipment (PPE) This may decrease voice recognition accuracy Inadvertent auto haulaway driver errors may occur 10/06/2024 Acquired hypothyroidism (ICD-10 [...] software and direct typing Please excuse inadvertent auto haulaway driver or typing errors, or uncorrected word substitutions Although every attempt has been made by the provider to proofread this document, occasional misspellings and typographical errors may still be present Due to the previous pandemic, and the use of personal protective equipment (PPE) This may decrease voice recognition accuracy Inadvertent auto haulaway driver errors may occur 10/06/2024 Atypical chest pain [...] software and direct typing Please excuse inadvertent auto haulaway driver or typing errors, or uncorrected word substitutions Although every attempt has been made by the provider to proofread this document, occasional misspellings and typographical errors may still be present Due to the previous pandemic, and the use of personal protective equipment (PPE) This may decrease voice recognition accuracy Inadvertent auto [employer]ulaway driver errors may occur 10/06/2024 Bilateral lower extremity [...] software and direct typing Please excuse inadvertent auto haulaway driver or typing errors, or uncorrected word substitutions Although every attempt has been made by the provider to proofread this document, occasional misspellings and typographical errors may still be present Due to the previous pandemic, and the use of personal protective equipment (PPE) This may decrease voice recognition accuracy Inadvertent auto haulaway driver errors may occur 05/25/2025 Acquired hypothyroidism (ICD-10 [...] software and direct typing Please excuse inadvertent auto haulaway driver or typing errors, or uncorrected word substitutions Although every attempt has been made by the provider to proofread this document, occasional misspellings and typographical errors may still be present Due to the previous pandemic, and the use of personal protective equipment (PPE) This may decrease voice recognition accuracy Inadvertent auto haulaway driver errors may occur 06/19/2025 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) patient [...] complex patient Recently 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 [facility] late April 2025 Pre-operative labs: CBC BMP [...] risk index risk/Luke JADA 0.3% risk of NH, cardiac arrest or other cardiac events intraoperatively or up to 30 days postop [facility] RCI 0 points, Class 1 risk 3.9% 30 day risk of NH or cardiac arrest Of note, some information is being carried forward from prior records for informational purposes only and is being cited so that efficiency, safety and quality of the patient's care is not compromised This note was prepared using voice recognition software and direct typing Please excuse inadvertent auto haulaway driver or typing errors, or uncorrected word substitutions Although every attempt has been made by the provider to proofread this document, occasional misspellings and typographical errors may still be present Due to the previous pandemic, and the use of personal protective equipment (PPE) This may decrease voice recognition accuracy Inadvertent auto haulaway driver errors may occur 08/05/2025 Hyperlipidemia, unspecified (ICD-10 - E78.5) 12/11/2024 Acquired hypothyroidism (ICD-10 - E03.9) Acute [...] software and direct typing Please excuse inadvertent auto haulaway driver or typing errors, or uncorrected word substitutions Although every attempt has been made by the provider to proofread this document, occasional misspellings and typographical errors may still be present Due to the previous pandemic, and the use of personal protective equipment (PPE) This may decrease voice recognition accuracy Inadvertent auto haulaway driver errors may occur 02/15/2025 Encounter for screening [...] software and direct typing Please excuse inadvertent auto haulaway driver or typing errors, or uncorrected word substitutions Although every attempt has been made by the provider to proofread this document, occasional misspellings and typographical errors may still be present Due to the previous pandemic, and the use of personal protective equipment (PPE) This may decrease voice recognition accuracy Inadvertent auto haulaway driver errors may occur 12/11/2024 Bilateral lower extremity [...] software and direct typing Please excuse inadvertent auto haulaway driver or typing errors, or uncorrected word substitutions Although every attempt has been made by the provider to proofread this document, occasional misspellings and typographical errors may still be present Due to the previous pandemic, and the use of personal protective equipment (PPE) This may decrease voice recognition accuracy Inadvertent auto haulaway driver errors may occur 09/15/2024 Chronic venous insufficiency [...] software and direct typing Please excuse inadvertent auto haulaway driver or typing errors, or uncorrected word substitutions Although every attempt has been made by the provider to proofread this document, occasional misspellings and typographical errors may still be present Due to the previous pandemic, and the use of personal protective equipment (PPE) This may decrease voice recognition accuracy Inadvertent auto haulaway driver errors may occur 09/15/2024 Acquired hypothyroidism (ICD-10 [...] software and direct typing Please excuse inadvertent auto haulaway driver or typing errors, or uncorrected word substitutions Although every attempt has been made by the provider to proofread this document, occasional misspellings and typographical errors may still be present Due to the previous pandemic, and the use of personal protective equipment (PPE) This may decrease voice recognition accuracy Inadvertent auto haulaway driver errors may occur 12/11/2024 Chronic venous insufficiency [...] software and direct typing Please excuse inadvertent auto haulaway driver or typing errors, or uncorrected word substitutions Although every attempt has been made by the provider to proofread this document, occasional misspellings and typographical errors may still be present Due to the previous pandemic, and the use of personal protective equipment (PPE) This may decrease voice recognition accuracy Inadvertent auto haulaway driver errors may occur 02/15/2025 Advanced directives, counseling/discussion [...] software and direct typing Please excuse inadvertent auto haulaway driver or typing errors, or uncorrected word substitutions Although every attempt has been made by the provider to proofread this document, occasional misspellings and typographical errors may still be present Due to the previous pandemic, and the use of personal protective equipment (PPE) This may decrease voice recognition accuracy Inadvertent auto haulaway driver errors may occur 06/19/2025 Acquired hypothyroidism (ICD-10 [...] complex patient Recently 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 [facility] late April 2025 Pre-operative labs: CBC BMP [...] risk index risk/Luke JADA 0.3% risk of NH, cardiac arrest or other cardiac events intraoperatively or up to 30 days postop [facility] RCI 0 points, Class 1 risk 3.9% 30 day risk of NH or cardiac arrest Of note, some information is being carried forward from prior records for informational purposes only and is being cited so that efficiency, safety and quality of the patient's care is not compromised This note was prepared using voice recognition software and direct typing Please excuse inadvertent auto haulaway driver or typing errors, or uncorrected word substitutions Although every attempt has been made by the provider to proofread this document, occasional misspellings and typographical errors may still be present Due to the previous pandemic, and the use of personal protective equipment (PPE) This may decrease voice recognition accuracy Inadvertent auto haulaway driver errors may occur 10/06/2024 Chronic venous insufficiency [...] software and direct typing Please excuse inadvertent auto haulaway driver or typing errors, or uncorrected word substitutions Although every attempt has been made by the provider to proofread this document, occasional misspellings and typographical errors may still be present Due to the previous pandemic, and the use of personal protective equipment (PPE) This may decrease voice recognition accuracy Inadvertent auto haulaway driver errors may occur 05/25/2025 Bilateral lower extremity [...] software and direct typing Please excuse inadvertent auto haulaway driver or typing errors, or uncorrected word substitutions Although every attempt has been made by the provider to proofread this document, occasional misspellings and typographical errors may still be present Due to the previous pandemic, and the use of personal protective equipment (PPE) This may decrease voice recognition accuracy Inadvertent auto haulaway driver errors may occur 05/25/2025 Chronic venous insufficiency [...] software and direct typing Please excuse inadvertent auto haulaway driver or typing errors, or uncorrected word substitutions Although every attempt has been made by the provider to proofread this document, occasional misspellings and typographical errors may still be present Due to the previous pandemic, and the use of personal protective equipment (PPE) This may decrease voice recognition accuracy Inadvertent auto haulaway driver errors may occur 10/06/2024 Abnormal metabolic state [...] software and direct typing Please excuse inadvertent auto haulaway driver or typing errors, or uncorrected word substitutions Although every attempt has been made by the provider to proofread this document, occasional misspellings and typographical errors may still be present Due to the previous pandemic, and the use of personal protective equipment (PPE) This may decrease voice recognition accuracy Inadvertent auto haulaway driver errors may occur 06/19/2025 Bilateral lower extremity edema (ICD-10 - R60.0) patient here for preoperative clearance and risk stratification Patient is scheduled to undergo Right thigh muscle biopsy, Upcoming date, [facility] Type of anesthesia, MAC/Moderate sedation [...] complex patient Recently 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 [facility] late April 2025 Pre-operative labs: CBC BMP [...] risk index risk/Luke JADA 0.3% risk of NH, cardiac arrest or other cardiac events intraoperatively or up to 30 days postop [facility] RCI 0 points, Class 1 risk 3.9% 30 day risk of NH or cardiac arrest Of note, some information is being carried forward from prior records for informational purposes only and is being cited so that efficiency, safety and quality of the patient's care is not compromised This note was prepared using voice recognition software and direct typing Please excuse inadvertent auto haulaway driver or typing errors, or uncorrected word substitutions Although every attempt has been made by the provider to proofread this document, occasional misspellings and typographical errors may still be present Due to the previous pandemic, and the use of personal protective equipment (PPE) This may decrease voice recognition accuracy Inadvertent auto haulaway driver errors may occur 12/11/2024 Abnormal metabolic state [...] software and direct typing Please excuse inadvertent auto haulaway driver or typing errors, or uncorrected word substitutions Although every attempt has been made by the provider to proofread this document, occasional misspellings and typographical errors may still be present Due to the previous pandemic, and the use of personal protective equipment (PPE) This may decrease voice recognition accuracy Inadvertent auto haulaway driver errors may occur 02/15/2025 Acquired hypothyroidism (ICD-10 [...] software and direct typing Please excuse inadvertent auto haulaway driver or typing errors, or uncorrected word substitutions Although every attempt has been made by the provider to proofread this document, occasional misspellings and typographical errors may still be present Due to the previous pandemic, and the use of personal protective equipment (PPE) This may decrease voice recognition accuracy Inadvertent auto haulaway driver errors may occur 12/11/2024 Pulmonary fibrosis (ICD-10 [...] software and direct typing Please excuse inadvertent auto haulaway driver or typing errors, or uncorrected word substitutions Although every attempt has been made by the provider to proofread this document, occasional misspellings and typographical errors may still be present Due to the previous pandemic, and the use of personal protective equipment (PPE) This may decrease voice recognition accuracy Inadvertent auto haulaway driver errors may occur 09/15/2024 Abnormal metabolic state [...] software and direct typing Please excuse inadvertent auto haulaway driver or typing errors, or uncorrected word substitutions Although every attempt has been made by the provider to proofread this document, occasional misspellings and typographical errors may still be present Due to the previous pandemic, and the use of personal protective equipment (PPE) This may decrease voice recognition accuracy Inadvertent auto haulaway driver errors may occur 02/15/2025 Bilateral lower extremity [...] software and direct typing Please excuse inadvertent auto haulaway driver or typing errors, or uncorrected word substitutions Although every attempt has been made by the provider to proofread this document, occasional misspellings and typographical errors may still be present Due to the previous pandemic, and the use of personal protective equipment (PPE) This may decrease voice recognition accuracy Inadvertent auto haulaway driver errors may occur 06/19/2025 Chronic venous insufficiency [...] complex patient Recently 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 [facility] late April 2025 Pre-operative labs: CBC BMP [...] risk index risk/Luke JADA 0.3% risk of NH, cardiac arrest or other cardiac events intraoperatively or up to 30 days postop [facility] RCI 0 points, Class 1 risk 3.9% 30 day risk of NH or cardiac arrest Of note, some information is being carried forward from prior records for informational purposes only and is being cited so that efficiency, safety and quality of the patient's care is not compromised This note was prepared using voice recognition software and direct typing Please excuse inadvertent auto haulaway driver or typing errors, or uncorrected word substitutions Although every attempt has been made by the provider to proofread this document, occasional misspellings and typographical errors may still be present Due to the previous pandemic, and the use of personal protective equipment (PPE) This may decrease voice recognition accuracy Inadvertent auto haulaway driver errors may occur 10/06/2024 Pulmonary fibrosis (ICD-10 [...] software and direct typing Please excuse inadvertent auto haulaway driver or typing errors, or uncorrected word substitutions Although every attempt has been made by the provider to proofread this document, occasional misspellings and typographical errors may still be present Due to the previous pandemic, and the use of personal protective equipment (PPE) This may decrease voice recognition accuracy Inadvertent auto haulaway driver errors may occur 05/25/2025 Pulmonary fibrosis (ICD-10 [...] software and direct typing Please excuse inadvertent auto haulaway driver or typing errors, or uncorrected word substitutions Although every attempt has been made by the provider to proofread this document, occasional misspellings and typographical errors may still be present Due to the previous pandemic, and the use of personal protective equipment (PPE) This may decrease voice recognition accuracy Inadvertent auto haulaway driver errors may occur 06/19/2025 Pulmonary fibrosis (ICD-10 [...] complex patient Recently 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 [facility] late April 2025 Pre-operative labs: CBC BMP [...] risk index risk/Luke JADA 0.3% risk of NH, cardiac arrest or other cardiac events intraoperatively or up to 30 days postop [facility] RCI 0 points, Class 1 risk 3.9% 30 day risk of NH or cardiac arrest Of note, some information is being carried forward from prior records for informational purposes only and is being cited so that efficiency, safety and quality of the patient's care is not compromised This note was prepared using voice recognition software and direct typing Please excuse inadvertent auto haulaway driver or typing errors, or uncorrected word substitutions Although every attempt has been made by the provider to proofread this document, occasional misspellings and typographical errors may still be present Due to the previous pandemic, and the use of personal protective equipment (PPE) This may decrease voice recognition accuracy Inadvertent auto haulaway driver errors may occur 05/25/2025 Hypothyroidism, unspecified (ICD-10 [...] software and direct typing Please excuse inadvertent auto haulaway driver or typing errors, or uncorrected word substitutions Although every attempt has been made by the provider to proofread this document, occasional misspellings and typographical errors may still be present Due to the previous pandemic, and the use of personal protective equipment (PPE) This may decrease voice recognition accuracy Inadvertent auto haulaway driver errors may occur 02/15/2025 Chronic venous insufficiency [...] software and direct typing Please excuse inadvertent auto haulaway driver or typing errors, or uncorrected word substitutions Although every attempt has been made by the provider to proofread this document, occasional misspellings and typographical errors may still be present Due to the previous pandemic, and the use of personal protective equipment (PPE) This may decrease voice recognition accuracy Inadvertent auto haulaway driver errors may occur 12/11/2024 Hypothyroidism, unspecified (ICD-10 [...] software and direct typing Please excuse inadvertent auto haulaway driver or typing errors, or uncorrected word substitutions Although every attempt has been made by the provider to proofread this document, occasional misspellings and typographical errors may still be present Due to the previous pandemic, and the use of personal protective equipment (PPE) This may decrease voice recognition accuracy Inadvertent auto haulaway driver errors may occur 09/15/2024 Hypothyroidism, unspecified (ICD-10 [...] software and direct typing Please excuse inadvertent auto haulaway driver or typing errors, or uncorrected word substitutions Although every attempt has been made by the provider to proofread this document, occasional misspellings and typographical errors may still be present Due to the previous pandemic, and the use of personal protective equipment (PPE) This may decrease voice recognition accuracy Inadvertent auto haulaway driver errors may occur 12/11/2024 Chronic pain syndrom [...] software and direct typing Please excuse inadvertent auto haulaway driver or typing errors, or uncorrected word substitutions Although every attempt has been made by the provider to proofread this document, occasional misspellings and typographical errors may still be present Due to the previous pandemic, and the use of personal protective equipment (PPE) This may decrease voice recognition accuracy Inadvertent auto haulaway driver errors may occur 02/15/2025 Pulmonary fibrosis (ICD-10 [...] software and direct typing Please excuse inadvertent auto haulaway driver or typing errors, or uncorrected word substitutions Although every attempt has been made by the provider to proofread this document, occasional misspellings and typographical errors may still be present Due to the previous pandemic, and the use of personal protective equipment (PPE) This may decrease voice recognition accuracy Inadvertent auto haulaway driver errors may occur 05/25/2025 Chronic pain syndrom [...] software and direct typing Please excuse inadvertent auto haulaway driver or typing errors, or uncorrected word substitutions Although every attempt has been made by the provider to proofread this document, occasional misspellings and typographical errors may still be present Due to the previous pandemic, and the use of personal protective equipment (PPE) This may decrease voice recognition accuracy Inadvertent auto haulaway driver errors may occur 10/06/2024 Hypothyroidism, unspecified (ICD-10 [...] software and direct typing Please excuse inadvertent auto haulaway driver or typing errors, or uncorrected word substitutions Although every attempt has been made by the provider to proofread this document, occasional misspellings and typographical errors may still be present Due to the previous pandemic, and the use of personal protective equipment (PPE) This may decrease voice recognition accuracy Inadvertent auto haulaway driver errors may occur 06/19/2025 Hypothyroidism, unspecified (ICD-10 [...] complex patient Recently 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 [facility] late April 2025 Pre-operative labs: CBC BMP [...] risk index risk/Luke JADA 0.3% risk of NH, cardiac arrest or other cardiac events intraoperatively or up to 30 days postop [facility] RCI 0 points, Class 1 risk 3.9% 30 day risk of NH or cardiac arrest Of note, some information is being carried forward from prior records for informational purposes only and is being cited so that efficiency, safety and quality of the patient's care is not compromised This note was prepared using voice recognition software and direct typing Please excuse inadvertent auto haulaway driver or typing errors, or uncorrected word substitutions Although every attempt has been made by the provider to proofread this document, occasional misspellings and typographical errors may still be present Due to the previous pandemic, and the use of personal protective equipment (PPE) This may decrease voice recognition accuracy Inadvertent auto haulaway driver errors may occur 06/19/2025 Chronic pain syndrom [...] complex patient Recently 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 [facility] late April 2025 Pre-operative labs: CBC BMP [...] risk index risk/Luke JADA 0.3% risk of NH, cardiac arrest or other cardiac events intraoperatively or up to 30 days postop [facility] RCI 0 points, Class 1 risk 3.9% 30 day risk of NH or cardiac arrest Of note, some information is being carried forward from prior records for informational purposes only and is being cited so that efficiency, safety and quality of the patient's care is not compromised This note was prepared using voice recognition software and direct typing Please excuse inadvertent auto haulaway driver or typing errors, or uncorrected word substitutions Although every attempt has been made by the provider to proofread this document, occasional misspellings and typographical errors may still be present Due to the previous pandemic, and the use of personal protective equipment (PPE) This may decrease voice recognition accuracy Inadvertent auto haulaway driver errors may occur 05/25/2025 Encounter for examination [...] software and direct typing Please excuse inadvertent auto haulaway driver or typing errors, or uncorrected word substitutions Although every attempt has been made by the provider to proofread this document, occasional misspellings and typographical errors may still be present Due to the previous pandemic, and the use of personal protective equipment (PPE) This may decrease voice recognition accuracy Inadvertent auto haulaway driver errors may occur 02/15/2025 Hypothyroidism, unspecified (ICD-10 [...] software and direct typing Please excuse inadvertent auto haulaway driver or typing errors, or uncorrected word substitutions Although every attempt has been made by the provider to proofread this document, occasional misspellings and typographical errors may still be present Due to the previous pandemic, and the use of personal protective equipment (PPE) This may decrease voice recognition accuracy Inadvertent auto haulaway driver errors may occur 02/15/2025 Chronic pain syndrom [...] software and direct typing Please excuse inadvertent auto haulaway driver or typing errors, or uncorrected word substitutions Although every attempt has been made by the provider to proofread this document, occasional misspellings and typographical errors may still be present Due to the previous pandemic, and the use of personal protective equipment (PPE) This may decrease voice recognition accuracy Inadvertent auto haulaway driver errors may occur 05/25/2025 Mild cardiomegaly (ICD-10 [...] software and direct typing Please excuse inadvertent auto haulaway driver or typing errors, or uncorrected word substitutions Although every attempt has been made by the provider to proofread this document, occasional misspellings and typographical errors may still be present Due to the previous pandemic, and the use of personal protective equipment (PPE) This may decrease voice recognition accuracy Inadvertent auto haulaway driver errors may occur 06/19/2025 Encounter for examination [...] complex patient Recently 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 [facility] late April 2025 Pre-operative labs: CBC BMP [...] risk index risk/Luke JADA 0.3% risk of NH, cardiac arrest or other cardiac events intraoperatively or up to 30 days postop Vargas RCI 0 points, Class 1 risk 3.9% 30 day risk of NH or cardiac arrest Of note, some information is being carried forward from prior records for informational purposes only and is being cited so that efficiency, safety and quality of the patient's care is not compromised This note was prepared using voice recognition software and direct typing Please excuse inadvertent auto haulaway driver or typing errors, or uncorrected word substitutions Although every attempt has been made by the provider to proofread this document, occasional misspellings and typographical errors may still be present Due to the previous pandemic, and the use of personal protective equipment (PPE) This may decrease voice recognition accuracy Inadvertent auto haulaway driver errors may occur 05/25/2025 Myalgia, multiple sites [...] software and direct typing Please excuse inadvertent auto haulaway driver or typing errors, or uncorrected word substitutions Although every attempt has been made by the provider to proofread this document, occasional misspellings and typographical errors may still be present Due to the previous pandemic, and the use of personal protective equipment (PPE) This may decrease voice recognition accuracy Inadvertent auto haulaway driver errors may occur 06/19/2025 Mild cardiomegaly (ICD-10 [...] complex patient Recently 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 [facility] late April 2025 Pre-operative labs: CBC BMP [...] risk index risk/Luke JADA 0.3% risk of NH, cardiac arrest or other cardiac events intraoperatively or up to 30 days postop Vargas RCI 0 points, Class 1 risk 3.9% 30 day risk of NH or cardiac arrest Of note, some information is being carried forward from prior records for informational purposes only and is being cited so that efficiency, safety and quality of the patient's care is not compromised This note was prepared using voice recognition software and direct typing Please excuse inadvertent auto haulaway driver or typing errors, or uncorrected word substitutions Although every attempt has been made by the provider to proofread this document, occasional misspellings and typographical errors may still be present Due to the previous pandemic, and the use of personal protective equipment (PPE) This may decrease voice recognition accuracy Inadvertent auto haulaway driver errors may occur 02/15/2025 Encounter for examination [...] software and direct typing Please excuse inadvertent auto haulaway driver or typing errors, or uncorrected word substitutions Although every attempt has been made by the provider to proofread this document, occasional misspellings and typographical errors may still be present Due to the previous pandemic, and the use of personal protective equipment (PPE) This may decrease voice recognition accuracy Inadvertent auto haulaway driver errors may occur 02/15/2025 Mild cardiomegaly (ICD-10 [...] software and direct typing Please excuse inadvertent auto haulaway driver or typing errors, or uncorrected word substitutions Although every attempt has been made by the provider to proofread this document, occasional misspellings and typographical errors may still be present Due to the previous pandemic, and the use of personal protective equipment (PPE) This may decrease voice recognition accuracy Inadvertent auto haulaway driver errors may occur 06/19/2025 Myalgia, multiple sites [...] complex patient Recently 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 [facility] late April 2025 Pre-operative labs: CBC BMP [...] risk index risk/Luke JADA 0.3% risk of NH, cardiac arrest or other cardiac events intraoperatively or up to 30 days postop Vargas RCI 0 points, Class 1 risk 3.9% 30 day risk of NH or cardiac arrest Of note, some information is being carried forward from prior records for informational purposes only and is being cited so that efficiency, safety and quality of the patient's care is not compromised This note was prepared using voice recognition software and direct typing Please excuse inadvertent auto haulaway driver or typing errors, or uncorrected word substitutions Although every attempt has been made by the provider to proofread this document, occasional misspellings and typographical errors may still be present Due to the previous pandemic, and the use of personal protective equipment (PPE) This may decrease voice recognition accuracy Inadvertent auto haulaway driver errors may occur 06/19/2025 Type 2 diabetes [...] complex patient Recently 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 [facility] late April 2025 Pre-operative labs: CBC BMP [...] risk index risk/Luke JADA 0.3% risk of NH, cardiac arrest or other cardiac events intraoperatively or up to 30 days postop Vargas RCI 0 points, Class 1 risk 3.9% 30 day risk of NH or cardiac arrest Of note, some information is being carried forward from prior records for informational purposes only and is being cited so that efficiency, safety and quality of the patient's care is not compromised This note was prepared using voice recognition software and direct typing Please excuse inadvertent auto haulaway driver or typing errors, or uncorrected word substitutions Although every attempt has been made by the provider to proofread this document, occasional misspellings and typographical errors may still be present Due to the previous pandemic, and the use of personal protective equipment (PPE) This may decrease voice recognition accuracy Inadvertent auto haulaway driver errors may occur 05/25/2025 Type 2 diabetes [...] software and direct typing Please excuse inadvertent auto haulaway driver or typing errors, or uncorrected word substitutions Although every attempt has been made by the provider to proofread this document, occasional misspellings and typographical errors may still be present Due to the previous pandemic, and the use of personal protective equipment (PPE) This may decrease voice recognition accuracy Inadvertent auto haulaway driver errors may occur Plan Of Treatment Pending [...] 06/19/2025 TOTAL T4 05/25/2025 LIPID PANEL, STANDARD 12/11/2024 LIPID PANEL, STANDARD 08/05/2025 LIPID PANEL, STANDARD 09/03/2022 LIPID PANEL, STANDARD 04/29/2023 COMPREHENSIVE METABOLIC PANEL 04/29/2023 COMPREHENSIVE METABOLIC PANEL 09/03/2022 COMPREHENSIVE METABOLIC PANEL 08/05/2025 COMPREHENSIVE METABOLIC PANEL 12/11/2024 COMPREHENSIVE METABOLIC PANEL 06/19/2025 MAGNESIUM 07/10/2024 CBC (INCLUDES DIFF/PLT) 08/05/2025 CBC (INCLUDES DIFF/PLT) 06/19/2025 CBC (INCLUDES DIFF/PLT) 12/11/2024 CBC (INCLUDES DIFF/PLT) 09/03/2022 URINALYSIS, COMPLETE 09/03/2022 URINALYSIS, COMPLETE 04/29/2023 URINALYSIS, COMPLETE 12/11/2024 HEMOGLOBIN A1c 08/05/2025 HEMOGLOBIN A1c 05/25/2025 HEMOGLOBIN A1c 04/29/2023 HEMOGLOBIN A1c 09/03/2022 HEMOGLOBIN A1c 09/15/2024 HEMOGLOBIN A1c 12/11/2024 HEMOGLOBIN A1c 10/06/2024 T4, FREE 04/29/2023 T4 (THYROXINE), TOTAL 12/11/2024 T4 (THYROXINE), TOTAL 09/15/2024 T4 (THYROXINE), TOTAL 10/06/2024 TSH 10/06/2024 TSH 09/15/2024 TSH 04/29/2023 TSH 09/03/2022 TSH 05/25/2025 TSH W/REFLEX TO FT4 12/11/2024 VITAMIN D,25-OH,TOTAL,IA 09/03/2022 VITAMIN D,25-OH,TOTAL,IA 12/11/2024 AChR Abs with Reflex to [id number] 05/2025 Next Appt Details Provider Name:RED BECKIE, 08/24/2025 11:00:00 AM, [address] [place] [address] [address], [place], [address], Insurance Providers Payer Name Payer Address Payer Phone Subscriber Number Group Number Insured Name Patient Relationship to Insured Coverage Start Date Coverage End Date Medicare Part B J14 [address] [place] [address] [phone] [id number] JB ARGUELLO Self - patient is the insured 8 [facility] [address] [place] [address] [phone] [id number] JB ARGUELLO Self - patient is the insured 0 Medications Administered Medication Instructions Date of Administration Dosage Notes MICC B12 INJECTION 04/24/2022 lot # [id number] MICC B12 INJECTION 05/08/2022 1 mL Lot #: [id number] MICC B12 INJECTION 05/23/2022 lot @ [id number] MICC B12 INJECTION 06/05/2022 1 mL Lot #: [id number] MICC B12 INJECTION 06/19/2022 lot # [id number] MICC B12 INJECTION 06/26/2022 lot # [id number] MICC B12 INJECTION 07/03/2022 1 mL Lot #: [id number] MICC B12 INJECTION 07/10/2022 lot # [id number] MICC B12 INJECTION 07/17/2022 lot # [id number] MICC B12 INJECTION 07/24/2022 MICC B12 INJECTION 07/31/2022 [id number] MICC B12 INJECTION 08/07/2022 lot # [id number] MICC B12 INJECTION 08/14/2022 MICC B12 INJECTION 08/21/2022 1 mL Lot #: [id number] MICC B12 INJECTION 08/28/2022 MICC B12 INJECTION 09/03/2022 lot # [id number] MICC B12 INJECTION 09/12/2022 lot [id number] MICC B12 INJECTION 09/19/2022 1 mL Lot #: [id number] MICC B12 INJECTION 09/26/2022 1 mL Lot # [id number] MICC B12 INJECTION 10/03/2022 lot # [id number] MICC B12 INJECTION 10/10/2022 1 mL Lot #: [id number] MICC B12 INJECTION 10/17/2022 1 mL Lot #: [id number] MICC B12 INJECTION 10/24/2022 MICC B12 INJECTION 10/31/2022 [id number] MICC B12 INJECTION 11/07/2022 lot # [id number] MICC B12 INJECTION 11/14/2022 1 mL Lot # [id number] MICC B12 INJECTION 11/21/2022 1 mL Lot # [id number] MICC B12 INJECTION 11/28/2022 [id number] MICC B12 INJECTION 12/05/2022 lot# [id number] MICC B12 INJECTION 12/12/2022 [id number] MICC B12 INJECTION 01/23/2023 1 mL Lot #: [id number] MICC B12 INJECTION 01/30/2023 lot # [id number] MICC B12 INJECTION 02/06/2023 1 mL Lot # [id number] MICC B12 INJECTION 02/13/2023 lot # [id number] MICC B12 INJECTION 02/20/2023 1 mL Lot # [id number] Prolia 05/09/2023 1 Medical (General) History Medical History History ICD Code Hypothyroidism asthma lupus anemia brain anuerysm Pulmonary fibrosis Osteoporosis Surgical History Surgery Date(Month/Year) carpal tunnel release colonoscopy 3 years hysterectomy 1978 gallbladder 1979 Hospitalization History Reason Date(Month/Year) [facility]- BLE edema, 2023 COVID 2020
--- OUTSIDE RECORDS SUMMARY | 2025-08-12 13:09 | XMS_ITS | Clinical Summary ---
Author Organization [facility] Address [address] [place] [address] Care Team Providers Care Warhead Maintenance Specialist Name Role Phone Shawna Ac MD Primary Care Provider [phone] Allergies Active Allergy Reactions Criticality Noted Date [...] age to complete this topic Care Teams Warhead Maintenance Specialist Relationship Specialty Start Date End Date Shawna Ac MD [address] [place] [address] PCP - General Family Medicine 01/19/22
--- OUTSIDE RECORDS SUMMARY | 2025-08-12 13:09 | XMS_ITS | Clinical Summary ---
Author Organization [address] [place] [address] [place] [address] Phone Care Team Providers Care Medical Office Secretary Name Role Phone Aleksandr Ortiz MD Primary Care Provider [phone] Surgical History Surgery Date Site/Laterality Comments CHOLECYSTECTOMY [...] Comments: Jayesh. Managed by Dr Enriqueta Gabriel associate in [place] Substance dependence, contin uous ([facility] V24, [facility] V28) 12/10/2017 DX:Substance dependence, co ntinuous ([facility]); COMMENT: Opioids Paresthesia of both legs 06/24/2017 DX:Pare sthesia of both legs Vitamin D deficiency 11/11/2017 DX:Vitamin D deficiency Systemic lupus erythematosus ([facility] V24, [facility] V28) 05/05/2018 DX:Systemic lupus erythemato erica ([facility]); COMMENT: Comments: Was seeing Dr Moreno Raynaud's disease 02/11/2018 DX:Raynaud's d isease 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 DX:Proctalgia f ugax Osteoporosis 12/17/2016 DX:Osteoporosis; COMMENT: Comments: Has Vitamin D Deficieny and is followed by Enriqueta Gabriel MD Print Line Feeder Major depression, recurrent ([facility] V24) 07/11/2011 DX:Major depression, recurre nt ([facility]) Nephrolithiasis 01/25/2010 DX:Nephrolithias is Lumbar degenerative disc disease 06/13/2016 DX:Lumbar degenerative disc disease Irritable bowel syndrome 01/06/2013 DX:Irri table bowel syndrome; COMMENT: Comments: diagnosed by Dr Decker gastroenterology [facility] colonoscopy negative jul 05 2003 for cancer Hypothyroidism 11/11/2017 DX:Hypothyroidis m Hypogammaglobulinemia ([facility] V24) 01/25/2010 DX:Hypogammaglobulinemia ([facility]); COMMENT: Comments: Was seen by newspaper carrier in 2001 who ruled out multiple myeloma [...] 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 in [place] put her on BMP a novel medication that according to her caused damage and resulted in surgeries. Her pain management doctor is Dr Montgomery [phone] Gomez [phone]. Diabetes mellitus type 2, un complicated ([facility] V24, [facility] V28) 05/05/2018 DX:Diabetes mellitus type 2 , uncomplicated ([facility]) History of Lyme disease 10/13/2018 DX:Histo ry [...] syndrome Diabetes mellitus (CMS/HCC V24, CMS/HCC V28) OSREN SCREENING DIGITAL Routine 12/01/2018 4:18 PM EDT Encounter for screening mammogram for malignant neoplasm of breast from Last 3 Months or Most Recently Relevant to Health Maintenance Results * MuSK antibody (05/25/2025 11:45 AM EDT) MuSK Ab IgG CBA IFA Screen, Serum <1:10 <1:10 06/01/2025 12:26 AM EDT [facility] Comment: Clinical Interpretation: MuSK Antibody, IgG [...] developed and its performance characteristics determined by [facility]. It has not been cleared or approved by the U.S. Food and Drug Administration. This test was performed in a CLIA-certified laboratory and is intended for clinical purposes. Performed By: [facility] [address] [place] [id number] Film Sound Coordinator: Raffi Navas MD, PhD CLIA Number: [id number] MuSK Ab IgG CBA IFA Titer, Serum TNP 06/01/2025 12:26 AM EDT [facility] Blood Venous blood specimen / Unknown Venipuncture / Unknown 05/25/2025 11:45 AM EDT 05/25/2025 12:44 PM EDT Richard Mcelroy [facility] BLOOD ORDERABLES Final Re sult Performing Organization Address [facility] Co de Phone Number [facility] [address] [place] [address] * Acetylcholine receptor, binding (05/25/2025 11:45 AM EDT) Acetylcholine Receptor Binding Antibody <0.30 nmol/L 06/01/2025 7:37 AM EDT [facility] Comment: Reference Ranges for Acetylcholine Receptor Binding Antibody: Negative: < or =0.30 nmol/L Equivocal: 0.31-0.49 nmol/L Positive: > or =0.50 nmol/L Test Performed at: [email or web address] [address] [address] Tim Lubin MD, PhD, ALEX Blood Venous blood specimen / Unknown Venipuncture / Unknown 05/25/2025 11:45 AM EDT 05/25/2025 12:44 PM EDT Richard Mcelroy [facility] BLOOD ORDERABLES Final Re sult Performing Organization Address [facility] Co de Phone Number [facility] [address] [place] [address] * (ABNORMAL) Thyroid stimulating hormone (05/25/2025 11:45 AM EDT) Pathologist [facility] TSH 0.33(L) 0.40 - 4.00 mcIU/mL LAB CHEMISTRY METHOD 05/25/2025 1:46 PM EDT [facility] Blood Venous blood specimen / Unknown Venipuncture / Unknown 05/25/2025 11:45 AM EDT 05/25/2025 12:44 PM EDT Richard Mcelroy NP LAB BLOOD ORDERABLES Final Re sult [facility] [address] [place] [address], [place] [phone] * (ABNORMAL) Thyroxine total (05/25/2025 11:45 AM EDT) Pathologist [facility] T4, Total 12.8(H) 4.5 - 10.9 mcg/dL LAB CHEMISTRY METHOD 05/25/2025 2:15 PM EDT [facility] Blood Venous blood specimen / Unknown Venipuncture / Unknown 05/25/2025 11:45 AM EDT 05/25/2025 12:44 PM EDT us Richard Mcelroy [facility] BLOOD ORDERABLES Final Re sult Performing Organization Address City/[facility]/ZIP Co de Phone Number [facility] [address] [place] [address], [place] [phone] * Hemoglobin A1c (05/25/2025 11:45 AM EDT) [facility] Hemoglobin A1C 6.3 <6.5 % LAB CHEMISTRY METHOD 05/25/2025 5:35 PM EDT [facility] Mean Bld Glu Estim. 134 mg/dL LAB CHEMISTRY METHOD 05/25/2025 5:35 PM EDT [facility] Blood Venous blood specimen / Unknown Venipuncture / Unknown 05/25/2025 11:45 AM EDT 05/25/2025 12:45 PM EDT us Richard Mcelroy [facility] BLOOD ORDERABLES Final Re sult [facility] [address] [place] [address], * SOREN SCREENING DIGITAL (12/01/2018 4:18 PM EDT) Anatomical Region Laterality Modality Mammography 12/01/2018 10:4 8 AM EDT Narrative 12/01/2018 4:18 PM EDT [facility] Diagnostic Imaging Department [address] [place] [address] Patient: NAHEED ARGUELLO Florinda /Age/Sex: 1955 - 63 - F Unit#: [id number] Location/Status: [facility] CLI Mnemonic/Ordering Site: [facility] Ordering Physician: SHAWNA AC MD [facility] Screening Digital - 12/01/18 - 1139 EXAM: [facility] Screening Digital EXAM DATE AND TIME: [...] Routine screening mammogram BILATERAL in 1 year. [id number], [id number] 3342F, 7025F Dictating Physician: URVASHI IBARRA MD Electronically Signed by: URVASHI IBARRA MD Dic Date/Time: 12/01/18 1552 Sign date/Time: 12/01/18 1617 Procedure Note Urvashi Ibarra MD - 09/05/2022 [facility] Diagnostic Imaging Department [address] [place] [address] Patient: NAHEED ARGUELLO Florinda Helms./Age/Sex: 1955 - 63 - F Unit#: [id number] Location/Status: [facility] Mnemonic/Ordering Site: [facility] Ordering Physician: SHAWNA AC MD [facility] Screening Digital - 12/01/18 - 1139 EXAM: [facility] Screening Digital EXAM DATE AND TIME: 12/01/2018 11:40 AM HISTORY: Screening. COMPARISON: 02/13/17, 04/09/13 TECHNIQUE: CC and MLO views of both breasts were obtained using fullfield digital mammography. Bilateral digital breast tomosynthesis was performedin the MLO projection. Computer aided detection with the [employer] 7.2-AnyPresenceas employed. TISSUE DENSITY: a. The breasts are [...] Routine screening mammogram BILATERAL in 1 year. [id number], [id number] 3342F, 7025F Dictating Physician: URVASHI IBARRA MD Electronically Signed by: URVASHI IBARRA MD Dic Date/Time: 12/01/18 1552 Sign date/Time: 12/01/18 1618 Shawna Ac MD IMG BI PROCEDURES Final Res ult from Last 3 Months or Most Recently Relevant to Health Maintenance Insurance MEDICARE [facility] Care Teams Medical Office Secretary Relationship Specialty Start Date End Date Aleksandr Ortiz MD [address] [place] [address] E MARKYARNELLELIZABETH [address] PCP - General 08/08/22
--- OUTSIDE RECORDS SUMMARY | 2025-08-12 13:09 | XMS_ITS | Clinical Summary ---
Author Organization [facility], Address [address] [place] [address] Phone Care Team Providers Care Nail Technician Name Role Phone Shawna Ac MD Primary Care Provider [phone] Allergies Active Allergy Reactions Criticality Noted Date [...] age to complete this topic Insurance Medicare [facility] Care Teams Nail Technician Relationship Specialty Start Date End Date Shawna Ac MD [address] [place] [address] PCP - General 09/26/20
--- NOTE | 2025-08-12 13:39 | PC.NURSE ---
Pt comes to ED today c/o sudden onset of R calf pain at approx 0300 this AM. She reports pain was intense and causes difficulty with weight bearing. She reports a Hx blood clots but is not in thinners at this time---she has an upcoming appt to discuss possible therapies. Pt requests for her power port to be accessed for the sake of blood work. Pt able to product identification card for power port--copy placed in Pts chart. Discussed with Dr. Sumner, who gives orders to hold blood work at this time. Pt will have u/s and will develop plan of care at that time. Pt also reports Hx pleural effusion. She requests she be examined to rule this out. Verbal order received from Dr. Sumner for 1V CXR.
[2025-08-12 15:46] VITALS: BP 133/83; PULSE 83; RESP 18; TEMP 36.3; O2SAT 98
== END 2025-08-12 15:46 | disposition home or self-care (01) ==
PROVIDERS: Emergency Provider Emergency Medicine; PCP Nurse Practitioner Acute Care
DX: R25.2 Cramp and spasm (principal); I10 Essential (primary) hypertension; Z86.711 Personal history of pulmonary embolism; Z88.1 Allergy status to other antibiotic agents; Z88.8 Allergy status to other drugs, medicaments and biological substances
CPT/HCPCS: 71045; 93971; 99283; 99284

== ENCOUNTER → 2025-08-12 12:49 | Outpatient (BNV) | payer MEDICARE, BC, SELFPAY | PROVIDERS: Emergency Provider Emergency Medicine; PCP Nurse Practitioner Acute Care; Visit Provider Radiology Diagnostic Radiology | DX: M79.661 Pain in right lower leg (principal); Z86.718 Personal history of other venous thrombosis and embolism | CPT/HCPCS: 71045; 93971 ==

== ENCOUNTER 2025-09-10 09:26 | Outpatient (REF) | payer MEDICARE, BC, SELFPAY ==
--- OUTSIDE RECORDS SUMMARY | 2025-09-10 09:30 | XMS_ITS | Patient Health Record ---
[facility] Address [address] [place] [address] Care Team Providers Care Can Reforming Machine Operator Name Role Phone Yashira THOMAS, Shawna Primary Care Provider Steph Dotson Unavailable [phone] Allergies Allergen (clinical drug ingredient) Drug/Non Drug Allergy documented on EMR Reaction Allergy Type Onset Date Status Adhesive Unknown Allergy Active Shellfish (FN) Shellfish-derived Products Unknown Drug Allergy Active Substance with 6-jodrpkx-5-methylgluta ryl-coenzyme A reductase inhibitor mechanism of action [...] Problem Acquired hammer toe of right foot (7514204875615449 ) Other hammer toe(s) (acquired), right foot (M20.41) Active confirmed Problem Acquired hammer toe of left foot (0384784885402531 ) Other hammer toe(s) (acquired), left foot (M20.42) Active confirmed Problem Polyneuropathy due to type 2 diabetes mellitus (866573853) Type 2 diabetes mellitus with diabetic polyneuropathy (E11.42) Active confirmed Plan Of Treatment Pending Test Test Name Order Date [id number] NAIL, 6 OR MORE 09/27/2020 [id number] NAIL, 1-5 11/29/2020 [id number] Plate 09/27/2020 13283-GPLI SKIN LESIONS, OVER 4 09/27/19 21 [id number]-[id number] SKIN LESIONS, OVER 4 11/30/19 21 [id number] DYSTROPHIC NAILS ANY # Insurance Providers Payer Name Payer Address Payer Phone Subscriber Number Group Number Insured Name Patient Relationship to Insured Coverage Start Date Coverage End Date [employer] [address] [place] [address] [phone] [id number] Naheed Luna Self - patient is the insured [facility] [address] [place] [address] [phone] [id number] Naheed Luna Self - patient is the [...] Surgery Date(Month/Year) tonsillectomy and adenoidectomy 2 D&C 9125-3509 hysterectomy 1978 oopherectomy 1978 appendectomy 1978 cholecystectomy 1979 disc surgeryC-5,C-6,SI,L5 S-1 Vplate ant erior 2002,2006,2008 carpal tunnel surgery 2003,2005 Hospitalization History Reason Date(Month/Year) [facility] hypokalemia, hypo magnesemia, thyroi d toxicosis 09/2020
--- OUTSIDE RECORDS SUMMARY | 2025-09-10 09:30 | XMS_ITS | Patient Health Record ---
Author Organization [facility] [address] Address [address] [place] [address] Care Team Providers Care Assembler Dielectric Heater Name Role Phone RED BUTTS Unavailable [phone] SHARAN JONES Unavailable [phone] Allergies Allergen (clinical drug ingredient) Drug/Non Drug Allergy documented on EMR Reaction Allergy Type Onset Date Status Substance with 5-ajzmtzr-8-methylgl utaryl-coenzyme A reductase inhibitor mechanism of action (substance) statins (uncoded) Unknown Allergy Active denosumab Prolia stomach upset Drug Allergy Act jere azithromycin Azithromycin Unknown Drug Allergy A ctive ciprofloxacin Ciprofloxacin Unknown Drug Allergy Active Results Component Value Reference Range Flag Notes Thyroxine (T4)-[id number] Reviewed date:02/13/2025 02:15:55 PM Interpretation: Performing Lab:[facility], [address] [place] [address], Phone - [phone], Director - Tessadry Notes/Report: Thyroxine (T4) 9.4 4.5-12.0 ug/dL Hemoglobin N4g-[id number] Reviewed date:02/13/2025 02:15:55 PM Interpretation: Performing Lab:[facility], [address] [place] [address], Phone - [phone], Director - MDJodry Notes/Report: Hemoglobin A1c 7.1 4.8-5.6 % H . Prediabetes: 5.7 - 6.4 Diabetes: >6.4 Glycemic control for adults with diabetes: <7.0 Urinalysis, Complete-[id number] Reviewed date:02/13/2025 02:15:55 PM Interpretation: Performing Lab:[facility], [address] [place] [address], Phone - [phone], Director - Tessadry Notes/Report: Specific [place] 1.025 1.005-1.030 pH 5.0 5.0-7.5 Urine-Color Yellow [...] None seen None seen/Few CBC With Differential/Platel et-120020 Reviewed date:02/13/2025 02:15:55 PM Interpretation: Performing Lab:[facility], [address] [place] [address], [place], Phone - [phone], Director - Lalo Notes/Report: WBC 10.4 3.4-10.8 [...] Grans (Abs) 0.1 0.0-0.1 x10E3/uL Vitamin D, 46-Ornqzws-[id number] Reviewed date:02/13/2025 02:15:55 PM Interpretation: Performing Lab:[facility], [address] [place] [address], Phone - [phone], Director - Lalo Notes/Report: Vitamin D, 25-Hydroxy 95.2 30.0-100.0 ng/mL Vitamin D deficiency has been defined by the [place] of [employer] and an Endocrine Society practice guideline as a level of serum 25-OH vitamin D less than 20 ng/mL (1,2). The Endocrine Society went on to further define vitamin D insufficiency as a level between 21 and 29 ng/mL (2). 1. IOM ([place] of Medicine). 2010. Dietary reference intakes for calcium and D. [place]: The National Academies Press. 2. Rigoebrto MF, Russel IQBAL, Chance SIERRA, et al. Evaluation, treatment, and prevention of vitamin D deficiency: an Endocrine Society clinical practice guideline. JCEM. 2010; 96(7):1911-30. Lipid Panel-[id number] Reviewed date:02/13/2025 02:15:55 PM Interpretation: Performing Lab:[facility], [address] [place] [address], Phone - [phone], Director - Lalo Notes/Report: Cholesterol, Total 191 100-199 mg/dL Triglycerides 279 0-149 mg/dL H HDL Cholesterol 36 >39 mg/dL L VLDL Cholesterol Stanford 48 5-40 mg/dL H LDL Chol Calc (NIH) 107 0-99 mg/dL H Comp. Metabolic Panel (14)-3 09262 Reviewed date:02/13/2025 02:15:55 PM Interpretation: Performing Lab:[facility], [address] [place] [address], Phone - [phone], Director - Lalo Notes/Report: Glucose 117 70-99 [...] IU/L TSH Rfx on Abnormal to Free [id number] Reviewed date:02/13/2025 02:15:55 PM Interpretation: Performing Lab:[facility] [place], Phone - [phone], Director - MDJodry Notes/Report: TSH 6.190 0.450-4.500 uIU/mL H T4,Free (Direct) 1.56 0.82-1.77 ng/dL Thyroxine (T4)-594889 Reviewed date:10/21/2024 08:32:30 AM Interpretation: Performing Lab:[facility] [place], Phone - [phone], Director - MDJodry Notes/Report: Thyroxine (T4) 11.2 4.5-12.0 ug/dL Hemoglobin [id number]-[id number] Reviewed date:10/21/2024 08:32:30 AM Interpretation: Performing Lab:[facility] [address] [place] [address], Phone - [phone], Director - MDdry Notes/Report: Hemoglobin A1c 8.9 4.8-5.6 % H . Prediabetes: 5.7 - 6.4 Diabetes: >6.4 Glycemic control for adults with diabetes: <7.0 TSH-574041 Reviewed date:10/21/2024 08:32:30 AM Interpretation: Performing Lab:[facility] [place], Phone - [phone], Director - MDJodry Notes/Report: TSH 2.810 0.450-4.500 uIU/mL ACETYLCHOLINE RECEPTOR, BIND ING Reviewed date:06/01/2025 07:57:41 AM Interpretation: Performing Lab: Notes/Report: Acetylcholine Receptor Binding Antibody <0.30 Reference Ranges for Acetylcholine Receptor Binding Antibody: Negative: < or =0.30 nmol/L Equivocal: 0.31-0.49 nmol/L Positive: > or =0.50 nmol/L Test Performed at: [facility] [facility] [address] [place] [address] Tim Lubin MD, PhD, ALEX MUSK ANTIBODY Reviewed date:06/01/2025 07:57:41 AM Interpretation: [...] developed and its performance characteristics determined by [facility]. It has not been cleared or approved by the U.S. Food and Drug Administration. This test was performed in a CLIA-certified laboratory and is intended for clinical purposes. Performed By: [facility] [address] [place] [id number] [employer] Laborer: Raffi Navas MD, PhD CLIA Number: [id number] MuSK Ab IgG CBA IFA Titer, Serum TNP EKG (Not yet reviewed by pro vider) Interpretation: Performing Lab: Notes/Report: ECGDiastolicBP 0 ECGHr 70 ECGPRInterval 130 ECGPWaveAxis -18 ECGQRSDuration 96 ECGQrsWaveAxis -11 ECGQTcInterval 415 ECGQTInterval 398 ECGSystolicBP 0 ECGTWaveAxis 17 RR_DiastolicBP 0 RR_MaxRRInterval 0 RR_MeanHR 0 RR_MeanRRInterval 0 RR_MinRRInterval 0 RR_NumBeats 0 RR_NumNormalBeats 0 RR_SystolicBP 0 TSH-635063 Reviewed date:09/30/2024 08:20:48 AM Interpretation: Performing Lab:[facility], [address] [facility], [place], Phone - [phone], Director - Lalo Notes/Report: TSH 6.050 0.450-4.500 uIU/mL H Hemoglobin [id number]-[id number] Reviewed date:09/30/2024 08:20:48 AM Interpretation: Performing Lab:[facility], [facility], Phone - [phone], Director - Lalo Notes/Report: Hemoglobin A1c 9.1 4.8-5.6 % H . Prediabetes: 5.7 - 6.4 Diabetes: >6.4 Glycemic control for adults with diabetes: <7.0 Thyroxine (T4)-864081 Reviewed date:09/30/2024 08:20:48 AM Interpretation: Performing Lab:[facility] [place], [address] [facility], [place], Phone - [phone], Director - Lalo Notes/Report: Thyroxine (T4) 10.6 4.5-12.0 ug/dL THYROID STIMULATING HORMONE Reviewed date:05/25/2025 02:39:16 PM Interpretation: Performing Lab: Notes/Report: TSH 0.33 0.40-4.00 mcIU/mL L THYROXINE TOTAL Reviewed date:05/27/2025 01:44:18 PM Interpretation: Performing Lab: Notes/Report: T4, Total 12.8 4.5-10.9 mcg/dL H HEMOGLOBIN A1C Reviewed date:05/26/2025 07:57:03 AM Interpretation: Performing Lab: Notes/Report: Hemoglobin A1C 6.3 <6.5 % Mean Bld Glu Estim. 134 Reason For Referral Reason [facility] V[facility]ULAR Diagnosis 1 Chronic stasis derma titis (I87.2) Referral Organization [facility] [address] Referring Provider First Name RED Referring Provider Last Name BECKIE Referring Provider Speciality Internal M edicine Referred Provider undefined Referred Provider Specialty Vascular Joao meaghan General Notes Pam Valadez 08:57:33 AM > Referral form faxed to [phone]. Clinical Notes Maria Guadalupe Robert 02:56:33 PM >, Maria Guadalupe Robert 01/19/2025 02:09:58 PM > The patient was seen on 01/07 and have a follow up appointment on 03/10 Referral Priority Routine Reason echocardiogram Diagnosis 1 Cardiomegaly (I51.7) Referral Organization [facility] [address] Referring Provider First Name SHARAN Referring Provider Last Name KAREN Referring Provider Speciality Internal M edicine Referred Provider Specialty Cardiology General Notes Delgado, Cheyanne 02/25 02:51:53 PM >faxed to [facility] cardiology at fax #[phone], phone # [phone] Clinical Notes Cheyanne Delgado 02/25 03:00:46 PM > Jakob mane Redena 03/10/2025 08:43:34 AM > The patient was seen on 02/26 and has a follow up on 03/18 at 2 pm Referral Priority Routine Medications Medication SIG (Take, Route, Frequency, Duration) Notes Start Date End Date Status ZyrTEC Allergy 10 MG Tablet 1 tablet Orally Once a day Active Sodium Chloride 3 % Nebulization Solution 4 mL Inhalation Twice a day Active Mounjaro 7.5 MG/0.5ML Solution Auto-injector INJECT 7.5 MG (0.5 ML) UNDER THE SKIN ONCE WEEKLY; Duration: 28 days Not-Taking Synthroid 150 MCG Tablet 1 tablet in the morning on an empty stomach Orally Once a day; Duration: 90 days Active Plaquenil 200 MG Tablet 1 tablet Orally daily Active Mounjaro 10 MG/0.5ML Solution Auto-injector 10mg Subcutaneous weekly; Duration: 90 days 05/25/2025 Active Omeprazole 40 MG Capsule Delayed Release 1 capsule 30 minutes before morning meal Orally Once a day; Duration: 90 days 02/16/2025 Active Losartan Potassium 25 MG Tablet TAKE 1 TABLET DAILY; Duration: 90 Active traMADol HCl 50 MG Tablet 1 tablet as ne eded for pain Orally every 6 hours; Duration: 30 days 02/16/2025 Active Picogxkpeh-VXUZ-Tbqacrtz 50-300-40 MG Capsule TAKE 1 CAPSULE ONCE DAILY NEEDED; Duration: 90 Active Roflumilast 500 MCG Tablet 1 tablet Orally Once a day Active Metoprolol Succinate ER 50 MG Tablet Extended Release 24 Hour TAKE ONE TABLET BY MOUTH EVERY DAY; Duration: 90 Active Incruse Ellipta 62.5 MCG/ACT Aerosol Powder Breath Activated Inhalation; Duration: 30 Days Active Dilt-XR 120 MG Capsule Extended Release 24 Hour TAKE ONE CAPSULE BY MOUTH EVERY DAY Oral; Duration: 90 Days Active Fioricet 50-300-40 MG Capsule 1 capsule as needed Orally once a day; Duration: 90 days Active Levalbuterol Tartrate 45 MCG/ACT Aerosol 1-2 puffs as needed Inhalation every 4 hrs; Duration: 30 days Active metFORMIN HCl ER 500 MG Tablet Extended Release 24 Hour 1 tablet with evening meal Orally Once a day; Duration: 90 days 08/04/2024 Active Probiotic - Tablet Delayed Release as directed Orally Active Vitamin D 25 MCG (1000 UT) Tablet 1 tablet Orally Once a day Active Magnesium 400 MG Capsule as directed Orally Active Vitamin C 1000 MG Tablet 1 tablet Orally Once a day Active Zinc 100 MG Tablet 1 tablet Orally Once a day Active Berberine Complex Ac tive CoQ-10 100 MG Capsule as directed Orally Active Calcium 500 MG Tablet 1 tablet with meal s Orally Twice a day Active Gammagard 20 GM/200ML Solution Injection; Duration: 28 Days Active Incruse Ellipta 62.5 MCG/ACT Aerosol Powder Breath Activated INHALE 1 PUFF DAILY Inhalation; Duration: 30 Days Active Levothyroxine Sodium 175 MCG Tablet 1 tablet in the morning on an empty stomach Orally every other day; Duration: 90 days 09/03/2024 Active Immunizations Vaccine Route Administration Date Status [...] Status W/U Status Risk Notes Problem Hypothyroidism (49492137) Hypothyroidism, unspecified (E03.9) Active confirmed Problem Obesity (865061650) Other obesit y (E66.8) Active confirmed Problem Mixed hyperlipidemia (463196111) Mixed hyperlipidemia (E78.2) Active confirmed Problem Hyperlipidemia (44028472) Hyperlipidemia, unspecified (E78.5) Active confirmed Problem Chronic pain (46039723) Other chronic pain (G89.29) Active confirmed Problem Chronic pain syndrom e (453969914) Chronic pain syndrome (G89.4) Active confirmed Problem Cardiomegaly (6362343) Cardiomegaly (I51.7) Acti ve confirmed Problem Systemic lupus erythematosus (20258393) Systemic lupus erythematosus, unspecified (M32.9) Active confirmed Problem Age-related osteoporosis (855941892) Age-related osteoporosis without current pathological fracture (M81.0) Active confirmed Problem Lipid screening (831120503) Encounter for screening for lipoid disorders (Z13.220) Active confirmed Problem Body mass index 35.0 0 to 39.99 (440413167523326) Body mass index (BMI) 38.0-38.9, adult (Z68.38) Active confirmed Problem Body mass index 35.0 0 to 39.99 (819872396794810) Body mass index (BMI) 39.0-39.9, adult (Z68.39) Active confirmed Problem Chronic idiopathic constipation (51969242) Chronic idiopathic constipation (K59.04) Active confirmed Problem Morbid obesity (041606435) Morbid obesity (E66.01) Active confirmed Problem Disorder due to type 2 diabetes mellitus (161224351) Type 2 diabetes mellitus with complication, unspecified whether superintendent container terminal insulin use (E11.8) Active confirmed Problem Acquired hypothyroidism (316363306) Acquired hypothyroidism (E03.9) Active confirmed Problem Adult health examination (555337894) Adult general medical exam (Z00.00) Active confirmed Problem Vitamin D deficiency (56830903) Vitamin D deficiency (E55.9) Active confirmed Problem Essential hypertensi on (84031107) Hypertension, unspecified type (I10) Active confirmed Problem Type II diabetes mellitus without complication (639664740) Type 2 diabetes mellitus without complication, without long-term current use of insulin (E11.9) Active confirmed Problem Obesity (783787320) Obesity (BMI 30-39.9) (E66.9) Active confirmed Problem Progressive fibrosin g interstitial lung disease (disorder) (029641274181709) Interstitial lung disease with progressive fibrotic phenotype in diseases classified elsewhere (J84.170) Active confirmed Problem Obese class II (823090959521835) BMI 35.0-35.9,adult (Z68.35) Active confirmed Problem Pulmonary fibrosis (93411575) Pulmonary fibrosis (J84.10) Active confirmed Problem Body mass index 40+ - severely obese (942681256) Body mass index [BMI] 40.0-44.9, adult (Z68.41) Active confirmed Problem Chronic venous insufficiency (64525289) Chronic venous insufficiency (I87.2) Active confirmed Problem Avitaminosis D (88750134) Avitaminosis D (E55.9) Active confirmed Problem Abnormal metabolic state due to diabetes mellitus (388645870) Abnormal metabolic state due to diabetes mellitus (E11.9) Active confirmed Problem Chronic interstitial cystitis (298817903) Interstitial cystitis (N30.10) Active confirmed Problem Hypogammaglobulinemi a (071816994) 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) Active confirmed Problem Other osteoporos is with current pathological fracture with routine healing, subsequent encounter (M80.80XD) Active confirmed Problem Peripheral venous insufficiency (90692759) Chronic stasis dermatitis (I87.2) Active confirmed Problem Monoclonal gammopath y of uncertain significance (disorder) (958375353) MGUS (monoclonal gammopathy of unknown significance) (D47.2) Active confirmed Problem Cardiomegaly (1987821) Mild card iomegaly (I51.7) Active confirmed Vital Signs Heart Rate 77 /min 08/24/2025 Oximetry 99 % 08/24/2025 Blood pressure diastolic 84 mm Hg 08/24/2025 Height 66 in 08/24/2025 Blood pressure systolic 134 mm Hg 08/24/2025 Weight 207 lbs 08/24/2025 BMI 33.41 kg/m2 08/24/2025 Encounters Encounter Location Date Provider Diagnosis [facility] [address] [address] 09/15/2024 RED BORHOT Atypical chest pain R07.89 ; Bilateral lower extremity edema R60.0 ; Chronic venous insufficiency I87.2 ; Acquired hypothyroidism E03.9 ; Abnormal metabolic state due to diabetes mellitus E11.9 and Hypothyroidism, unspecified E03.9 [facility] [address] [address] 10/06/2024 [place] Atypical chest pain R07.89 ; Acquired hypothyroidism E03.9 ; Bilateral lower extremity edema R60.0 ; Chronic venous insufficiency I87.2 ; Abnormal metabolic state due to diabetes mellitus E11.9 ; Pulmonary fibrosis J84.10 and Hypothyroidism, unspecified E03.9 [facility] [address] [address] 12/11/2024 [place] Atypical chest pain R07.89 ; Acquired hypothyroidism E03.9 ; Bilateral lower extremity edema R60.0 ; Chronic venous insufficiency I87.2 ; Abnormal metabolic state due to diabetes mellitus E11.9 ; Pulmonary fibrosis J84.10 ; Hypothyroidism, unspecified E03.9 and Chronic pain syndrome G89.4 [facility] [address] [address] 02/15/2025 RED BUTTS Annual physical exam Z00.00 [...] cardiomegaly I51.[address] [facility] [address] [place] [address] 05/08/2025 RED BUTTS Acute abdominal pain R10.9 [facility] [address] [address] 05/25/2025 RED BUTTS MGUS (monoclonal bernadine mopathy [...] insulin E11.[address] [facility] [address] [place] [address] 06/19/2025 RED ORTEGAT MGUS (monoclonal bernadine mopathy of unknown [...] long-term current use of insulin E11.9 [facility] [address] 08/24/2025 RED SHANNONT Type 2 diabetes gregg itus with complication, unspecified whether superintendent container terminal insulin use E11.8 ; Chronic pain syndrome G89.4 ; Hyperlipidemia, unspecified E78.5 ; Hypertension, unspecified type I10 ; Hypothyroidism, unspecified type E03.9 ; Body mass index (BMI) 38.0-38.9, adult Z68.38 ; Other chronic pain G89.29 ; Pulmonary fibrosis J84.10 ; Chronic venous insufficiency I87.2 ; Bilateral lower extremity edema R60.0 ; Myalgia, multiple sites M79.18 and Encounter for screening for osteoporosis Z13.[address] [facility] [address] [place] [address] 09/14/2024 [place] [facility] [address] [address] 09/17/2024 [place] Atypical chest pain R07.89 [facility] [address] 09/18/2024 [place] Atypical chest pain R07.[address] [facility] [address] [place] [address] 09/28/2024 SHARAN JONES [facility] [address] 10/14/2024 [place] [facility] [address] [address] 10/15/2024 [place] [facility] [address] 10/15/2024 [place] [facility] [address] [address] 10/22/2024 [place] [facility] [address] [address] 12/24/2024 RED GUTIERREZHOT [facility] [address] [facility] [address] [place], [place] 12/24/2024 [place] [facility] [address] [place], [place] 01/07/2025 RED BRENDAHOT [facility] [address] [facility] [address] [place] [address] 02/25/2025 RED BUTTS Cardiomegaly I51.7 [facility] [address] [facility] [address] [place], [place] 03/31/2025 TALAL JONES [facility] [address] [facility] [address] [place] [address] 04/30/2025 TALAL [address]ONES [facility] [address] [place] [address] 05/27/2025 RED BUTTS Hypothyroidism, unsp ecified E03.9 [facility] [address] 06/09/2025 RED GUTIERREZHOT [facility] [address] 06/17/2025 RED GUTIERREZHOT [facility] [address] 07/21/2025 RED BUTTS MGUS (monoclonal bernadine mopathy of unknown significance) D47.2 [facility] [address] [facility] [address] [place], [place] 07/26/2025 RED BUTTS [facility] [address] [place] [address] 07/26/2025 RED ORTEGAT [facility] [address] [facility] [address] [place], [place] 08/05/2025 RED BUTTS Type 2 diabetes gregg itus with complication, unspecified whether fdc insulin use E11.8 and Hyperlipidemia, unspecified E78.5 [facility] [address] 08/11/2025 RED ORTEGAT [facility] [address] 08/19/2025 RED BUTTS [facility] [address] [address] 09/18/2024 SHARAN JONES [facility] [address] [facility] [address] [place] [address] 02/16/2025 RED BUTTS [facility] [address] [address] 06/24/2025 RED BUTTS Assessments Encounter Date Diagnosis [...] software and direct typing Please excuse inadvertent survey research analyst or typing errors, or uncorrected word substitutions Although every attempt has been made by the provider to proofread this document, occasional misspellings and typographical errors may still be present Due to the previous pandemic, and the use of personal protective equipment (PPE) This may decrease voice recognition accuracy Inadvertent survey research analyst errors may occur 09/15/2024 Bilateral lower extremity [...] software and direct typing Please excuse inadvertent survey research analyst or typing errors, or uncorrected word substitutions Although every attempt has been made by the provider to proofread this document, occasional misspellings and typographical errors may still be present Due to the previous pandemic, and the use of personal protective equipment (PPE) This may decrease voice recognition accuracy Inadvertent survey research analyst errors may occur 09/17/2024 Atypical chest pain [...] software and direct typing Please excuse inadvertent survey research analyst or typing errors, or uncorrected word substitutions Although every attempt has been made by the provider to proofread this document, occasional misspellings and typographical errors may still be present Due to the previous pandemic, and the use of personal protective equipment (PPE) This may decrease voice recognition accuracy Inadvertent survey research analyst errors may occur 10/06/2024 Atypical chest pain [...] software and direct typing Please excuse inadvertent survey research analyst or typing errors, or uncorrected word substitutions Although every attempt has been made by the provider to proofread this document, occasional misspellings and typographical errors may still be present Due to the previous pandemic, and the use of personal protective equipment (PPE) This may decrease voice recognition accuracy Inadvertent survey research analyst errors may occur 12/11/2024 Atypical chest pain [...] software and direct typing Please excuse inadvertent survey research analyst or typing errors, or uncorrected word substitutions Although every attempt has been made by the provider to proofread this document, occasional misspellings and typographical errors may still be present Due to the previous pandemic, and the use of personal protective equipment (PPE) This may decrease voice recognition accuracy Inadvertent survey research analyst errors may occur 02/15/2025 Encounter for screening [...] software and direct typing Please excuse inadvertent survey research analyst or typing errors, or uncorrected word substitutions Although every attempt has been made by the provider to proofread this document, occasional misspellings and typographical errors may still be present Due to the previous pandemic, and the use of personal protective equipment (PPE) This may decrease voice recognition accuracy Inadvertent survey research analyst errors may occur 02/15/2025 Annual physical exam [...] software and direct typing Please excuse inadvertent survey research analyst or typing errors, or uncorrected word substitutions Although every attempt has been made by the provider to proofread this document, occasional misspellings and typographical errors may still be present Due to the previous pandemic, and the use of personal protective equipment (PPE) This may decrease voice recognition accuracy Inadvertent survey research analyst errors may occur 02/25/2025 Cardiomegaly (ICD-10 - [...] software and direct typing Please excuse inadvertent survey research analyst or typing errors, or uncorrected word substitutions Although every attempt has been made by the provider to proofread this document, occasional misspellings and typographical errors may still be present Due to the previous pandemic, and the use of personal protective equipment (PPE) This may decrease voice recognition accuracy Inadvertent survey research analyst errors may occur 05/25/2025 Hypogammaglobulinemi a (ICD-10 [...] software and direct typing Please excuse inadvertent survey research analyst or typing errors, or uncorrected word substitutions Although every attempt has been made by the provider to proofread this document, occasional misspellings and typographical errors may still be present Due to the previous pandemic, and the use of personal protective equipment (PPE) This may decrease voice recognition accuracy Inadvertent survey research analyst errors may occur 05/25/2025 MGUS (monoclonal gammopathy [...] software and direct typing Please excuse inadvertent survey research analyst or typing errors, or uncorrected word substitutions Although every attempt has been made by the provider to proofread this document, occasional misspellings and typographical errors may still be present Due to the previous pandemic, and the use of personal protective equipment (PPE) This may decrease voice recognition accuracy Inadvertent survey research analyst errors may occur 05/27/2025 Hypothyroidism, unspecified (ICD-10 - E03.9) 06/19/2025 Preoperative clearan ce (ICD-10 - Z01.818) [...] complex patient Recently 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 [employer] late April 2025 Pre-operative labs: CBC BMP [...] risk index risk/Luke JADA 0.3% risk of [place], cardiac arrest or other cardiac events intraoperatively or up to 30 days postop Vargas RCI 0 points, Class 1 risk 3.9% 30 day risk of [place] or cardiac arrest Of note, some information is being carried forward from prior records for informational purposes only and is being cited so that efficiency, safety and quality of the patient's care is not compromised This note was prepared using voice recognition software and direct typing Please excuse inadvertent survey research analyst or typing errors, or uncorrected word substitutions Although every attempt has been made by the provider to proofread this document, occasional misspellings and typographical errors may still be present Due to the previous pandemic, and the use of personal protective equipment (PPE) This may decrease voice recognition accuracy Inadvertent survey research analyst errors may occur 06/19/2025 MGUS (monoclonal gammopathy [...] NO Steroid exposure NO GLP/GIP Use: YES, Richarunblainero, 7.5 mg ASA Class: 2/3 VTE Risk/Caprini 5 pointsCaprini VTE ScoreHigh risk Recommended prophylaxis: Pneumatic compression devices AND low dose heparin OR low molecular weight heparin 1.8% VTE risk7-10 days total for duration of chemoprophylaxis Medically complex patient Recently 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 [employer] late April 2025 Pre-operative labs: CBC BMP [...] risk index risk/Luke JADA 0.3% risk of [place], cardiac arrest or other cardiac events intraoperatively or up to 30 days postop Vargas RCI 0 points, Class 1 risk 3.9% 30 day risk of [place] or cardiac arrest Of note, some information is being carried forward from prior records for informational purposes only and is being cited so that efficiency, safety and quality of the patient's care is not compromised This note was prepared using voice recognition software and direct typing Please excuse inadvertent survey research analyst or typing errors, or uncorrected word substitutions Although every attempt has been made by the provider to proofread this document, occasional misspellings and typographical errors may still be present Due to the previous pandemic, and the use of personal protective equipment (PPE) This may decrease voice recognition accuracy Inadvertent survey research analyst errors may occur 07/21/2025 MGUS (monoclonal gammopathy of unknown significance) (ICD-10 - D47.2) 08/05/2025 Type 2 diabetes mellitus with complication, unspecified whether superintendent container terminal insulin use (ICD-10 - E11.8) 08/24/2025 Chronic pain syndrom e (ICD-10 - G89.4) Will check updated thyroid labs including TSH and T4 _update bone density scanning Status post muscle biopsy with general surgery at [place] Other chronic conditions are stable at this time, Medically complex chronic patient Of note, some information is being carried forward from prior records for informational purposes only and is being cited so that efficiency, safety and quality of the patient's care is not compromised This note was prepared using voice recognition software and direct typing Please excuse inadvertent survey research analyst or typing errors, or uncorrected word substitutions Although every attempt has been made by the provider to proofread this document, occasional misspellings and typographical errors may still be present Due to the previous pandemic, and the use of personal protective equipment (PPE) This may decrease voice recognition accuracy Inadvertent survey research analyst errors may occur 08/24/2025 Type 2 diabetes mellitus with complication, unspecified whether superintendent container terminal insulin use (ICD-10 - E11.8) Will check updated thyroid labs including TSH and T4 _update bone density scanning Status post muscle biopsy with general surgery at [place] Other chronic conditions are stable at this time, Medically complex chronic patient Of note, some information is being carried forward from prior records for informational purposes only and is being cited so that efficiency, safety and quality of the patient's care is not compromised This note was prepared using voice recognition software and direct typing Please excuse inadvertent survey research analyst or typing errors, or uncorrected word substitutions Although every attempt has been made by the provider to proofread this document, occasional misspellings and typographical errors may still be present Due to the previous pandemic, and the use of personal protective equipment (PPE) This may decrease voice recognition accuracy Inadvertent survey research analyst errors may occur 06/19/2025 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 Del Rio Type of [...] complex patient Recently 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 [employer] late April 2025 Pre-operative labs: CBC BMP [...] risk index risk/Luke JADA 0.3% risk of [place], cardiac arrest or other cardiac events intraoperatively or up to 30 days postop Vargas RCI 0 points, Class 1 risk 3.9% 30 day risk of [place] or cardiac arrest Of note, some information is being carried forward from prior records for informational purposes only and is being cited so that efficiency, safety and quality of the patient's care is not compromised This note was prepared using voice recognition software and direct typing Please excuse inadvertent survey research analyst or typing errors, or uncorrected word substitutions Although every attempt has been made by the provider to proofread this document, occasional misspellings and typographical errors may still be present Due to the previous pandemic, and the use of personal protective equipment (PPE) This may decrease voice recognition accuracy Inadvertent survey research analyst errors may occur 08/24/2025 Hyperlipidemia, unspecified (ICD-10 - E78.5) Will check updated thyroid labs including TSH and T4 _update bone density scanning Status post muscle biopsy with general surgery at [place] Other chronic conditions are stable at this time, Medically complex chronic patient Of note, some information is being carried forward from prior records for informational purposes only and is being cited so that efficiency, safety and quality of the patient's care is not compromised This note was prepared using voice recognition software and direct typing Please excuse inadvertent survey research analyst or typing errors, or uncorrected word substitutions Although every attempt has been made by the provider to proofread this document, occasional misspellings and typographical errors may still be present Due to the previous pandemic, and the use of personal protective equipment (PPE) This may decrease voice recognition accuracy Inadvertent survey research analyst errors may occur 08/05/2025 Hyperlipidemia, unspecified (ICD-10 - E78.5) 05/25/2025 Acquired hypothyroidism (ICD-10 - E03.9) Acute [...] software and direct typing Please excuse inadvertent survey research analyst or typing errors, or uncorrected word substitutions Although every attempt has been made by the provider to proofread this document, occasional misspellings and typographical errors may still be present Due to the previous pandemic, and the use of personal protective equipment (PPE) This may decrease voice recognition accuracy Inadvertent survey research analyst errors may occur 02/15/2025 Encounter for screening [...] software and direct typing Please excuse inadvertent survey research analyst or typing errors, or uncorrected word substitutions Although every attempt has been made by the provider to proofread this document, occasional misspellings and typographical errors may still be present Due to the previous pandemic, and the use of personal protective equipment (PPE) This may decrease voice recognition accuracy Inadvertent survey research analyst errors may occur 12/11/2024 Bilateral lower extremity [...] software and direct typing Please excuse inadvertent survey research analyst or typing errors, or uncorrected word substitutions Although every attempt has been made by the provider to proofread this document, occasional misspellings and typographical errors may still be present Due to the previous pandemic, and the use of personal protective equipment (PPE) This may decrease voice recognition accuracy Inadvertent survey research analyst errors may occur 12/11/2024 Acquired hypothyroidism (ICD-10 [...] software and direct typing Please excuse inadvertent survey research analyst or typing errors, or uncorrected word substitutions Although every attempt has been made by the provider to proofread this document, occasional misspellings and typographical errors may still be present Due to the previous pandemic, and the use of personal protective equipment (PPE) This may decrease voice recognition accuracy Inadvertent survey research analyst errors may occur 10/06/2024 Bilateral lower extremity [...] software and direct typing Please excuse inadvertent survey research analyst or typing errors, or uncorrected word substitutions Although every attempt has been made by the provider to proofread this document, occasional misspellings and typographical errors may still be present Due to the previous pandemic, and the use of personal protective equipment (PPE) This may decrease voice recognition accuracy Inadvertent survey research analyst errors may occur 09/15/2024 Chronic venous insufficiency [...] software and direct typing Please excuse inadvertent survey research analyst or typing errors, or uncorrected word substitutions Although every attempt has been made by the provider to proofread this document, occasional misspellings and typographical errors may still be present Due to the previous pandemic, and the use of personal protective equipment (PPE) This may decrease voice recognition accuracy Inadvertent survey research analyst errors may occur 10/06/2024 Chronic venous insufficiency [...] software and direct typing Please excuse inadvertent survey research analyst or typing errors, or uncorrected word substitutions Although every attempt has been made by the provider to proofread this document, occasional misspellings and typographical errors may still be present Due to the previous pandemic, and the use of personal protective equipment (PPE) This may decrease voice recognition accuracy Inadvertent survey research analyst errors may occur 09/15/2024 Acquired hypothyroidism (ICD-10 [...] software and direct typing Please excuse inadvertent survey research analyst or typing errors, or uncorrected word substitutions Although every attempt has been made by the provider to proofread this document, occasional misspellings and typographical errors may still be present Due to the previous pandemic, and the use of personal protective equipment (PPE) This may decrease voice recognition accuracy Inadvertent survey research analyst errors may occur 12/11/2024 Chronic venous insufficiency [...] software and direct typing Please excuse inadvertent survey research analyst or typing errors, or uncorrected word substitutions Although every attempt has been made by the provider to proofread this document, occasional misspellings and typographical errors may still be present Due to the previous pandemic, and the use of personal protective equipment (PPE) This may decrease voice recognition accuracy Inadvertent survey research analyst errors may occur 02/15/2025 Advanced directives, counseling/discussion [...] software and direct typing Please excuse inadvertent survey research analyst or typing errors, or uncorrected word substitutions Although every attempt has been made by the provider to proofread this document, occasional misspellings and typographical errors may still be present Due to the previous pandemic, and the use of personal protective equipment (PPE) This may decrease voice recognition accuracy Inadvertent survey research analyst errors may occur 05/25/2025 Bilateral lower extremity [...] software and direct typing Please excuse inadvertent survey research analyst or typing errors, or uncorrected word substitutions Although every attempt has been made by the provider to proofread this document, occasional misspellings and typographical errors may still be present Due to the previous pandemic, and the use of personal protective equipment (PPE) This may decrease voice recognition accuracy Inadvertent survey research analyst errors may occur 06/19/2025 Acquired hypothyroidism (ICD-10 [...] complex patient Recently 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 [employer] 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 director late April 2025 Pre-operative labs: CBC BMP [...] risk index risk/Luke JADA 0.3% risk of [place], cardiac arrest or other cardiac events intraoperatively or up to 30 days postop Vargas RCI 0 points, Class 1 risk 3.9% 30 day risk of [place] or cardiac arrest Of note, some information is being carried forward from prior records for informational purposes only and is being cited so that efficiency, safety and quality of the patient's care is not compromised This note was prepared using voice recognition software and direct typing Please excuse inadvertent survey research analyst or typing errors, or uncorrected word substitutions Although every attempt has been made by the provider to proofread this document, occasional misspellings and typographical errors may still be present Due to the previous pandemic, and the use of personal protective equipment (PPE) This may decrease voice recognition accuracy Inadvertent survey research analyst errors may occur 08/24/2025 Hypertension, unspecified type (ICD-10 - I10) Will check updated thyroid labs including TSH and T4 _update bone density scanning Status post muscle biopsy with general surgery at [place] Other chronic conditions are stable at this time, Medically complex chronic patient Of note, some information is being carried forward from prior records for informational purposes only and is being cited so that efficiency, safety and quality of the patient's care is not compromised This note was prepared using voice recognition software and direct typing Please excuse inadvertent survey research analyst or typing errors, or uncorrected word substitutions Although every attempt has been made by the provider to proofread this document, occasional misspellings and typographical errors may still be present Due to the previous pandemic, and the use of personal protective equipment (PPE) This may decrease voice recognition accuracy Inadvertent survey research analyst errors may occur 05/25/2025 Chronic venous insufficiency [...] software and direct typing Please excuse inadvertent survey research analyst or typing errors, or uncorrected word substitutions Although every attempt has been made by the provider to proofread this document, occasional misspellings and typographical errors may still be present Due to the previous pandemic, and the use of personal protective equipment (PPE) This may decrease voice recognition accuracy Inadvertent survey research analyst errors may occur 06/19/2025 Bilateral lower extremity [...] complex patient Recently 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 [employer] artistic director late April 2025 Pre-operative labs: CBC BMP [...] risk index risk/Luke JADA 0.3% risk of [place], cardiac arrest or other cardiac events intraoperatively or up to 30 days postop Vargas RCI 0 points, Class 1 risk 3.9% 30 day risk of [place] or cardiac arrest Of note, some information is being carried forward from prior records for informational purposes only and is being cited so that efficiency, safety and quality of the patient's care is not compromised This note was prepared using voice recognition software and direct typing Please excuse inadvertent survey research analyst or typing errors, or uncorrected word substitutions Although every attempt has been made by the provider to proofread this document, occasional misspellings and typographical errors may still be present Due to the previous pandemic, and the use of personal protective equipment (PPE) This may decrease voice recognition accuracy Inadvertent survey research analyst errors may occur 08/24/2025 Hypothyroidism, unspecified type (ICD-10 - E03.9) Will check updated thyroid labs including TSH and T4 _update bone density scanning Status post muscle biopsy with general surgery at [place] Other chronic conditions are stable at this time, Medically complex chronic patient Of note, some information is being carried forward from prior records for informational purposes only and is being cited so that efficiency, safety and quality of the patient's care is not compromised This note was prepared using voice recognition software and direct typing Please excuse inadvertent survey research analyst or typing errors, or uncorrected word substitutions Although every attempt has been made by the provider to proofread this document, occasional misspellings and typographical errors may still be present Due to the previous pandemic, and the use of personal protective equipment (PPE) This may decrease voice recognition accuracy Inadvertent survey research analyst errors may occur 12/11/2024 Abnormal metabolic state [...] software and direct typing Please excuse inadvertent survey research analyst or typing errors, or uncorrected word substitutions Although every attempt has been made by the provider to proofread this document, occasional misspellings and typographical errors may still be present Due to the previous pandemic, and the use of personal protective equipment (PPE) This may decrease voice recognition accuracy Inadvertent survey research analyst errors may occur 02/15/2025 Acquired hypothyroidism (ICD-10 [...] software and direct typing Please excuse inadvertent survey research analyst or typing errors, or uncorrected word substitutions Although every attempt has been made by the provider to proofread this document, occasional misspellings and typographical errors may still be present Due to the previous pandemic, and the use of personal protective equipment (PPE) This may decrease voice recognition accuracy Inadvertent survey research analyst errors may occur 10/06/2024 Abnormal metabolic state [...] software and direct typing Please excuse inadvertent survey research analyst or typing errors, or uncorrected word substitutions Although every attempt has been made by the provider to proofread this document, occasional misspellings and typographical errors may still be present Due to the previous pandemic, and the use of personal protective equipment (PPE) This may decrease voice recognition accuracy Inadvertent survey research analyst errors may occur 12/11/2024 Pulmonary fibrosis (ICD-10 [...] software and direct typing Please excuse inadvertent survey research analyst or typing errors, or uncorrected word substitutions Although every attempt has been made by the provider to proofread this document, occasional misspellings and typographical errors may still be present Due to the previous pandemic, and the use of personal protective equipment (PPE) This may decrease voice recognition accuracy Inadvertent survey research analyst errors may occur 09/15/2024 Abnormal metabolic state [...] software and direct typing Please excuse inadvertent survey research analyst or typing errors, or uncorrected word substitutions Although every attempt has been made by the provider to proofread this document, occasional misspellings and typographical errors may still be present Due to the previous pandemic, and the use of personal protective equipment (PPE) This may decrease voice recognition accuracy Inadvertent survey research analyst errors may occur 10/06/2024 Pulmonary fibrosis (ICD-10 [...] software and direct typing Please excuse inadvertent survey research analyst or typing errors, or uncorrected word substitutions Although every attempt has been made by the provider to proofread this document, occasional misspellings and typographical errors may still be present Due to the previous pandemic, and the use of personal protective equipment (PPE) This may decrease voice recognition accuracy Inadvertent survey research analyst errors may occur 02/15/2025 Bilateral lower extremity [...] software and direct typing Please excuse inadvertent survey research analyst or typing errors, or uncorrected word substitutions Although every attempt has been made by the provider to proofread this document, occasional misspellings and typographical errors may still be present Due to the previous pandemic, and the use of personal protective equipment (PPE) This may decrease voice recognition accuracy Inadvertent survey research analyst errors may occur 08/24/2025 Body mass index (BMI ) 38.0-38.9, adult (ICD-10 - Z68.38) Will check updated thyroid labs including TSH and T4 _update bone density scanning Status post muscle biopsy with general surgery at [place] Other chronic conditions are stable at this time, Medically complex chronic patient Of note, some information is being carried forward from prior records for informational purposes only and is being cited so that efficiency, safety and quality of the patient's care is not compromised This note was prepared using voice recognition software and direct typing Please excuse inadvertent survey research analyst or typing errors, or uncorrected word substitutions Although every attempt has been made by the provider to proofread this document, occasional misspellings and typographical errors may still be present Due to the previous pandemic, and the use of personal protective equipment (PPE) This may decrease voice recognition accuracy Inadvertent survey research analyst errors may occur 06/19/2025 Chronic venous insufficiency (ICD-10 - I87.2) patient here for preoperative clearance and risk stratification Patient is scheduled to undergo Right thigh muscle biopsy, Upcoming date, with [facility], Dr. Del Rio Type of [...] complex patient Recently 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 [employer] late April 2025 Pre-operative labs: CBC BMP [...] risk index risk/Luke JADA 0.3% risk of [place], cardiac arrest or other cardiac events intraoperatively or up to 30 days postop Vargas RCI 0 points, Class 1 risk 3.9% 30 day risk of [place] or cardiac arrest Of note, some information is being carried forward from prior records for informational purposes only and is being cited so that efficiency, safety and quality of the patient's care is not compromised This note was prepared using voice recognition software and direct typing Please excuse inadvertent survey research analyst or typing errors, or uncorrected word substitutions Although every attempt has been made by the provider to proofread this document, occasional misspellings and typographical errors may still be present Due to the previous pandemic, and the use of personal protective equipment (PPE) This may decrease voice recognition accuracy Inadvertent survey research analyst errors may occur 05/25/2025 Pulmonary fibrosis (ICD-10 [...] software and direct typing Please excuse inadvertent survey research analyst or typing errors, or uncorrected word substitutions Although every attempt has been made by the provider to proofread this document, occasional misspellings and typographical errors may still be present Due to the previous pandemic, and the use of personal protective equipment (PPE) This may decrease voice recognition accuracy Inadvertent survey research analyst errors may occur 06/19/2025 Pulmonary fibrosis (ICD-10 [...] complex patient Recently 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 [employer] director late April 2025 Pre-operative labs: CBC BMP [...] risk index risk/Luke JADA 0.3% risk of [place], cardiac arrest or other cardiac events intraoperatively or up to 30 days postop Vargas RCI 0 points, Class 1 risk 3.9% 30 day risk of [place] or cardiac arrest Of note, some information is being carried forward from prior records for informational purposes only and is being cited so that efficiency, safety and quality of the patient's care is not compromised This note was prepared using voice recognition software and direct typing Please excuse inadvertent survey research analyst or typing errors, or uncorrected word substitutions Although every attempt has been made by the provider to proofread this document, occasional misspellings and typographical errors may still be present Due to the previous pandemic, and the use of personal protective equipment (PPE) This may decrease voice recognition accuracy Inadvertent survey research analyst errors may occur 08/24/2025 Other chronic pain (ICD-10 - G89.29) Will check updated thyroid labs including TSH and T4 _update bone density scanning Status post muscle biopsy with general surgery at [place] Other chronic conditions are stable at this time, Medically complex chronic patient Of note, some information is being carried forward from prior records for informational purposes only and is being cited so that efficiency, safety and quality of the patient's care is not compromised This note was prepared using voice recognition software and direct typing Please excuse inadvertent survey research analyst or typing errors, or uncorrected word substitutions Although every attempt has been made by the provider to proofread this document, occasional misspellings and typographical errors may still be present Due to the previous pandemic, and the use of personal protective equipment (PPE) This may decrease voice recognition accuracy Inadvertent survey research analyst errors may occur 02/15/2025 Chronic venous insufficiency [...] software and direct typing Please excuse inadvertent survey research analyst or typing errors, or uncorrected word substitutions Although every attempt has been made by the provider to proofread this document, occasional misspellings and typographical errors may still be present Due to the previous pandemic, and the use of personal protective equipment (PPE) This may decrease voice recognition accuracy Inadvertent survey research analyst errors may occur 05/25/2025 Hypothyroidism, unspecified (ICD-10 [...] software and direct typing Please excuse inadvertent survey research analyst or typing errors, or uncorrected word substitutions Although every attempt has been made by the provider to proofread this document, occasional misspellings and typographical errors may still be present Due to the previous pandemic, and the use of personal protective equipment (PPE) This may decrease voice recognition accuracy Inadvertent survey research analyst errors may occur 12/11/2024 Hypothyroidism, unspecified (ICD-10 [...] software and direct typing Please excuse inadvertent survey research analyst or typing errors, or uncorrected word substitutions Although every attempt has been made by the provider to proofread this document, occasional misspellings and typographical errors may still be present Due to the previous pandemic, and the use of personal protective equipment (PPE) This may decrease voice recognition accuracy Inadvertent survey research analyst errors may occur 09/15/2024 Hypothyroidism, unspecified (ICD-10 [...] software and direct typing Please excuse inadvertent survey research analyst or typing errors, or uncorrected word substitutions Although every attempt has been made by the provider to proofread this document, occasional misspellings and typographical errors may still be present Due to the previous pandemic, and the use of personal protective equipment (PPE) This may decrease voice recognition accuracy Inadvertent survey research analyst errors may occur 12/11/2024 Chronic pain syndrom [...] software and direct typing Please excuse inadvertent survey research analyst or typing errors, or uncorrected word substitutions Although every attempt has been made by the provider to proofread this document, occasional misspellings and typographical errors may still be present Due to the previous pandemic, and the use of personal protective equipment (PPE) This may decrease voice recognition accuracy Inadvertent survey research analyst errors may occur 10/06/2024 Hypothyroidism, unspecified (ICD-10 [...] software and direct typing Please excuse inadvertent survey research analyst or typing errors, or uncorrected word substitutions Although every attempt has been made by the provider to proofread this document, occasional misspellings and typographical errors may still be present Due to the previous pandemic, and the use of personal protective equipment (PPE) This may decrease voice recognition accuracy Inadvertent survey research analyst errors may occur 05/25/2025 Chronic pain syndrom [...] software and direct typing Please excuse inadvertent survey research analyst or typing errors, or uncorrected word substitutions Although every attempt has been made by the provider to proofread this document, occasional misspellings and typographical errors may still be present Due to the previous pandemic, and the use of personal protective equipment (PPE) This may decrease voice recognition accuracy Inadvertent survey research analyst errors may occur 02/15/2025 Pulmonary fibrosis (ICD-10 [...] software and direct typing Please excuse inadvertent survey research analyst or typing errors, or uncorrected word substitutions Although every attempt has been made by the provider to proofread this document, occasional misspellings and typographical errors may still be present Due to the previous pandemic, and the use of personal protective equipment (PPE) This may decrease voice recognition accuracy Inadvertent survey research analyst errors may occur 06/19/2025 Hypothyroidism, unspecified (ICD-10 [...] complex patient Recently 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 [employer] late April 2025 Pre-operative labs: CBC BMP [...] risk index risk/Luke JADA 0.3% risk of [place], cardiac arrest or other cardiac events intraoperatively or up to 30 days postop Vargas RCI 0 points, Class 1 risk 3.9% 30 day risk of [place] or cardiac arrest Of note, some information is being carried forward from prior records for informational purposes only and is being cited so that efficiency, safety and quality of the patient's care is not compromised This note was prepared using voice recognition software and direct typing Please excuse inadvertent survey research analyst or typing errors, or uncorrected word substitutions Although every attempt has been made by the provider to proofread this document, occasional misspellings and typographical errors may still be present Due to the previous pandemic, and the use of personal protective equipment (PPE) This may decrease voice recognition accuracy Inadvertent survey research analyst errors may occur 08/24/2025 Pulmonary fibrosis (ICD-10 - J84.10) Will check updated thyroid labs including TSH and T4 _update bone density scanning Status post muscle biopsy with general surgery at [place] Other chronic conditions are stable at this time, Medically complex chronic patient Of note, some information is being carried forward from prior records for informational purposes only and is being cited so that efficiency, safety and quality of the patient's care is not compromised This note was prepared using voice recognition software and direct typing Please excuse inadvertent survey research analyst or typing errors, or uncorrected word substitutions Although every attempt has been made by the provider to proofread this document, occasional misspellings and typographical errors may still be present Due to the previous pandemic, and the use of personal protective equipment (PPE) This may decrease voice recognition accuracy Inadvertent survey research analyst errors may occur 08/24/2025 Chronic venous insufficiency (ICD-10 - I87.2) Will check updated thyroid labs including TSH and T4 _update bone density scanning Status post muscle biopsy with general surgery at [place] Other chronic conditions are stable at this time, Medically complex chronic patient Of note, some information is being carried forward from prior records for informational purposes only and is being cited so that efficiency, safety and quality of the patient's care is not compromised This note was prepared using voice recognition software and direct typing Please excuse inadvertent survey research analyst or typing errors, or uncorrected word substitutions Although every attempt has been made by the provider to proofread this document, occasional misspellings and typographical errors may still be present Due to the previous pandemic, and the use of personal protective equipment (PPE) This may decrease voice recognition accuracy Inadvertent survey research analyst errors may occur 06/19/2025 Chronic pain syndrom e (ICD-10 - G89.4) patient here for preoperative clearance and risk stratification Patient is scheduled to undergo Right thigh muscle biopsy, Upcoming date, with [facility], Dr. Del Rio Type of [...] complex patient Recently 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 [employer] late April 2025 Pre-operative labs: CBC BMP [...] or questions Preoperative cardiac risk index risk/Luke AJDA 0.3% risk of [place], cardiac arrest or other cardiac events intraoperatively or up to 30 days postop Vargas RCI 0 points, Class 1 risk 3.9% 30 day risk of [place] or cardiac arrest Of note, some information is being carried forward from prior records for informational purposes only and is being cited so that efficiency, safety and quality of the patient's care is not compromised This note was prepared using voice recognition software and direct typing Please excuse inadvertent survey research analyst or typing errors, or uncorrected word substitutions Although every attempt has been made by the provider to proofread this document, occasional misspellings and typographical errors may still be present Due to the previous pandemic, and the use of personal protective equipment (PPE) This may decrease voice recognition accuracy Inadvertent survey research analyst errors may occur 02/15/2025 Hypothyroidism, unspecified (ICD-10 - E03.9) Acute Concerns/Problem List: 02/15/2025 [facility] get an [facility]ogram has been some years [...] software and direct typing Please excuse inadvertent survey research analyst or typing errors, or uncorrected word substitutions Although every attempt has been made by the provider to proofread this document, occasional misspellings and typographical errors may still be present Due to the previous pandemic, and the use of personal protective equipment (PPE) This may decrease voice recognition accuracy Inadvertent survey research analyst errors may occur 05/25/2025 Encounter for examination [...] software and direct typing Please excuse inadvertent survey research analyst or typing errors, or uncorrected word substitutions Although every attempt has been made by the provider to proofread this document, occasional misspellings and typographical errors may still be present Due to the previous pandemic, and the use of personal protective equipment (PPE) This may decrease voice recognition accuracy Inadvertent survey research analyst errors may occur 02/15/2025 Chronic pain syndrom [...] software and direct typing Please excuse inadvertent survey research analyst or typing errors, or uncorrected word substitutions Although every attempt has been made by the provider to proofread this document, occasional misspellings and typographical errors may still be present Due to the previous pandemic, and the use of personal protective equipment (PPE) This may decrease voice recognition accuracy Inadvertent survey research analyst errors may occur 06/19/2025 Encounter for examination [...] complex patient Recently 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 [employer] late April 2025 Pre-operative labs: CBC BMP [...] risk index risk/Luke JADA 0.3% risk of [place], cardiac arrest or other cardiac events intraoperatively or up to 30 days postop Vargas RCI 0 points, Class 1 risk 3.9% 30 day risk of [place] or cardiac arrest Of note, some information is being carried forward from prior records for informational purposes only and is being cited so that efficiency, safety and quality of the patient's care is not compromised This note was prepared using voice recognition software and direct typing Please excuse inadvertent survey research analyst or typing errors, or uncorrected word substitutions Although every attempt has been made by the provider to proofread this document, occasional misspellings and typographical errors may still be present Due to the previous pandemic, and the use of personal protective equipment (PPE) This may decrease voice recognition accuracy Inadvertent survey research analyst errors may occur 05/25/2025 Mild cardiomegaly (ICD-10 [...] software and direct typing Please excuse inadvertent survey research analyst or typing errors, or uncorrected word substitutions Although every attempt has been made by the provider to proofread this document, occasional misspellings and typographical errors may still be present Due to the previous pandemic, and the use of personal protective equipment (PPE) This may decrease voice recognition accuracy Inadvertent survey research analyst errors may occur 08/24/2025 Bilateral lower extremity edema (ICD-10 - R60.0) Will check updated thyroid labs including TSH and T4 _update bone density scanning Status post muscle biopsy with general surgery at [place] Other chronic conditions are stable at this time, Medically complex chronic patient Of note, some information is being carried forward from prior records for informational purposes only and is being cited so that efficiency, safety and quality of the patient's care is not compromised This note was prepared using voice recognition software and direct typing Please excuse inadvertent survey research analyst or typing errors, or uncorrected word substitutions Although every attempt has been made by the provider to proofread this document, occasional misspellings and typographical errors may still be present Due to the previous pandemic, and the use of personal protective equipment (PPE) This may decrease voice recognition accuracy Inadvertent survey research analyst errors may occur 08/24/2025 Myalgia, multiple sites (ICD-10 - M79.18) Will check updated thyroid labs including TSH and T4 _update bone density scanning Status post muscle biopsy with general surgery at [place] Other chronic conditions are stable at this time, Medically complex chronic patient Of note, some information is being carried forward from prior records for informational purposes only and is being cited so that efficiency, safety and quality of the patient's care is not compromised This note was prepared using voice recognition software and direct typing Please excuse inadvertent survey research analyst or typing errors, or uncorrected word substitutions Although every attempt has been made by the provider to proofread this document, occasional misspellings and typographical errors may still be present Due to the previous pandemic, and the use of personal protective equipment (PPE) This may decrease voice recognition accuracy Inadvertent survey research analyst errors may occur 05/25/2025 Myalgia, multiple sites [...] software and direct typing Please excuse inadvertent survey research analyst or typing errors, or uncorrected word substitutions Although every attempt has been made by the provider to proofread this document, occasional misspellings and typographical errors may still be present Due to the previous pandemic, and the use of personal protective equipment (PPE) This may decrease voice recognition accuracy Inadvertent survey research analyst errors may occur 06/19/2025 Mild cardiomegaly (ICD-10 - I51.7) patient here for preoperative clearance and risk stratification Patient is scheduled to undergo Right thigh muscle biopsy, Upcoming date, with [facility], Dr. Del Rio Type of [...] complex patient Recently 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 [employer] late April 2025 Pre-operative labs: CBC BMP [...] risk index risk/Luke JADA 0.3% risk of [place], cardiac arrest or other cardiac events intraoperatively or up to 30 days postop Vargas RCI 0 points, Class 1 risk 3.9% 30 day risk of [place] or cardiac arrest Of note, some information is being carried forward from prior records for informational purposes only and is being cited so that efficiency, safety and quality of the patient's care is not compromised This note was prepared using voice recognition software and direct typing Please excuse inadvertent survey research analyst or typing errors, or uncorrected word substitutions Although every attempt has been made by the provider to proofread this document, occasional misspellings and typographical errors may still be present Due to the previous pandemic, and the use of personal protective equipment (PPE) This may decrease voice recognition accuracy Inadvertent survey research analyst errors may occur 02/15/2025 Encounter for examination [...] software and direct typing Please excuse inadvertent survey research analyst or typing errors, or uncorrected word substitutions Although every attempt has been made by the provider to proofread this document, occasional misspellings and typographical errors may still be present Due to the previous pandemic, and the use of personal protective equipment (PPE) This may decrease voice recognition accuracy Inadvertent survey research analyst errors may occur 02/15/2025 Mild cardiomegaly (ICD-10 [...] software and direct typing Please excuse inadvertent survey research analyst or typing errors, or uncorrected word substitutions Although every attempt has been made by the provider to proofread this document, occasional misspellings and typographical errors may still be present Due to the previous pandemic, and the use of personal protective equipment (PPE) This may decrease voice recognition accuracy Inadvertent survey research analyst errors may occur 06/19/2025 Myalgia, multiple sites [...] complex patient Recently 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 [employer] late April 2025 Pre-operative labs: CBC BMP [...] risk index risk/Luke JADA 0.3% risk of [place], cardiac arrest or other cardiac events intraoperatively or up to 30 days postop Vargas RCI 0 points, Class 1 risk 3.9% 30 day risk of [place] or cardiac arrest Of note, some information is being carried forward from prior records for informational purposes only and is being cited so that efficiency, safety and quality of the patient's care is not compromised This note was prepared using voice recognition software and direct typing Please excuse inadvertent survey research analyst or typing errors, or uncorrected word substitutions Although every attempt has been made by the provider to proofread this document, occasional misspellings and typographical errors may still be present Due to the previous pandemic, and the use of personal protective equipment (PPE) This may decrease voice recognition accuracy Inadvertent survey research analyst errors may occur 08/24/2025 Encounter for screening for osteoporosis (ICD-10 - Z13.820) Will check updated thyroid labs including TSH and T4 _update bone density scanning Status post muscle biopsy with general surgery at [place] Other chronic conditions are stable at this time, Medically complex chronic patient Of note, some information is being carried forward from prior records for informational purposes only and is being cited so that efficiency, safety and quality of the patient's care is not compromised This note was prepared using voice recognition software and direct typing Please excuse inadvertent survey research analyst or typing errors, or uncorrected word substitutions Although every attempt has been made by the provider to proofread this document, occasional misspellings and typographical errors may still be present Due to the previous pandemic, and the use of personal protective equipment (PPE) This may decrease voice recognition accuracy Inadvertent survey research analyst errors may occur 05/25/2025 Type 2 diabetes [...] software and direct typing Please excuse inadvertent survey research analyst or typing errors, or uncorrected word substitutions Although every attempt has been made by the provider to proofread this document, occasional misspellings and typographical errors may still be present Due to the previous pandemic, and the use of personal protective equipment (PPE) This may decrease voice recognition accuracy Inadvertent survey research analyst errors may occur 06/19/2025 Type 2 diabetes mellitus without complication, without long-term current use of insulin (ICD-10 - E11.9) patient here for preoperative clearance and risk stratification Patient is scheduled to undergo Right thigh muscle biopsy, Upcoming date, with [facility], Dr. Del Rio Type of [...] complex patient Recently 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 [employer] late April 2025 Pre-operative labs: CBC BMP [...] risk index risk/Luke JADA 0.3% risk of [place], cardiac arrest or other cardiac events intraoperatively or up to 30 days postop Vargas RCI 0 points, Class 1 risk 3.9% 30 day risk of [place] or cardiac arrest Of note, some information is being carried forward from prior records for informational purposes only and is being cited so that efficiency, safety and quality of the patient's care is not compromised This note was prepared using voice recognition software and direct typing Please excuse inadvertent survey research analyst or typing errors, or uncorrected word substitutions Although every attempt has been made by the provider to proofread this document, occasional misspellings and typographical errors may still be present Due to the previous pandemic, and the use of personal protective equipment (PPE) This may decrease voice recognition accuracy Inadvertent survey research analyst errors may occur Plan Of Treatment Pending Test Test Name Order Date Echocardiogram 02/25/2025 Hemoglobin A1c 07/15/2019 PT AND PTT 06/19/2025 Lipid Panel 07/15/2019 Comp. Metabolic Panel (14) 07/15/2019 CBC 07/15/2019 Bone Density 06/22/2022 Bone Density 08/24/2025 Urinalysis 07/15/2019 EKG 06/19/2025 CBC (COMPLETE BLOOD COUNT) 02/17/2018 COMPREHENSIVE METABOLIC PANEL 02/17/2018 HEMOGLOBIN A1C 02/17/2018 T4, TOTAL 05/27/2025 TSH 05/27/2025 URINALYSIS, COMPLETE 02/17/2018 XR Ribs w Chest 3+ Views RT 09/23/2019 PT/INR 06/19/2025 TSH 08/24/2025 TOTAL T4 08/24/2025 TOTAL T4 05/25/2025 LIPID PANEL, STANDARD 08/05/2025 LIPID PANEL, STANDARD 09/03/2022 LIPID PANEL, STANDARD 04/29/2023 LIPID PANEL, STANDARD 12/11/2024 COMPREHENSIVE METABOLIC PANEL 12/11/2024 COMPREHENSIVE METABOLIC PANEL 04/29/2023 COMPREHENSIVE METABOLIC PANEL 09/03/2022 COMPREHENSIVE METABOLIC PANEL 06/19/2025 COMPREHENSIVE METABOLIC PANEL 08/05/2025 MAGNESIUM 07/10/2024 CBC (INCLUDES DIFF/PLT) 08/05/2025 CBC (INCLUDES DIFF/PLT) 06/19/2025 CBC (INCLUDES DIFF/PLT) 09/03/2022 CBC (INCLUDES DIFF/PLT) 12/11/2024 URINALYSIS, COMPLETE 04/29/2023 URINALYSIS, COMPLETE 12/11/2024 URINALYSIS, COMPLETE 09/03/2022 HEMOGLOBIN A1c 09/03/2022 HEMOGLOBIN A1c 04/29/2023 HEMOGLOBIN A1c 12/11/2024 HEMOGLOBIN A1c 05/25/2025 HEMOGLOBIN A1c 09/15/2024 HEMOGLOBIN A1c 10/06/2024 HEMOGLOBIN A1c 08/05/2025 T4, FREE 04/29/2023 T4 (THYROXINE), TOTAL 10/06/2024 T4 (THYROXINE), TOTAL 09/15/2024 T4 (THYROXINE), TOTAL 12/11/2024 TSH 09/15/2024 TSH 10/06/2024 TSH 04/29/2023 TSH 09/03/2022 TSH 05/25/2025 TSH W/REFLEX TO FT4 12/11/2024 VITAMIN D,25-OH,TOTAL,IA 12/11/2024 VITAMIN D,25-OH,TOTAL,IA 09/03/2022 AChR Abs with Reflex to [id number] 05/2025 Next Appt Details Provider Name:RED BUTTS, 12/23/2025 10:15:00 AM, [address] [employer] [address], [address], [place], [address], Insurance Providers Payer Name Payer Address Payer Phone Subscriber Number Group Number Insured Name Patient Relationship to Insured Coverage Start Date Coverage End Date Medicare Part B [id number] [address] [place] [address] [id number] JB ARGUELLO Self - patient is the insured 8 [employer] and [employer] [facility] [address] [place] [address] [phone] [id number] JB ARGUELLO Self - patient is the insured 0 Medications Administered Medication Instructions Date of Administration Dosage Notes MICC B12 INJECTION 04/24/2022 lot # [id number] MICC B12 INJECTION 05/08/2022 1 mL Lot #: [id number] MICC B12 INJECTION 05/23/2022 lot @ [id number] MICC B12 INJECTION 06/05/2022 1 mL Lot #: [id number] MICC B12 INJECTION 06/19/2022 lot # [id number] MICC B12 INJECTION 06/26/2022 lot # [id number] MICC B12 INJECTION 07/03/2022 1 mL Lot #: [id number] MICC B12 INJECTION 07/10/2022 lot # [id number] MICC B12 INJECTION 07/17/2022 lot # [id number] MICC B12 INJECTION 07/24/2022 MICC B12 INJECTION 07/31/2022 [id number] MICC B12 INJECTION 08/07/2022 lot # [id number] MICC B12 INJECTION 08/14/2022 MICC B12 INJECTION 08/21/2022 1 mL Lot #: [id number] MICC B12 INJECTION 08/28/2022 MICC B12 INJECTION 09/03/2022 lot # [id number] MICC B12 INJECTION 09/12/2022 lot [id number] MICC B12 INJECTION 09/19/2022 1 mL Lot #: [id number] MICC B12 INJECTION 09/26/2022 1 mL Lot # [id number] MICC B12 INJECTION 10/03/2022 lot # [id number] MICC B12 INJECTION 10/10/2022 1 mL Lot #: [id number] MICC B12 INJECTION 10/17/2022 1 mL Lot #: [id number] MICC B12 INJECTION 10/24/2022 MICC B12 INJECTION 10/31/2022 [id number] MICC B12 INJECTION 11/07/2022 lot # [id number] MICC B12 INJECTION 11/14/2022 1 mL Lot # [id number] MICC B12 INJECTION 11/21/2022 1 mL Lot # [id number] MICC B12 INJECTION 11/28/2022 [id number] MICC B12 INJECTION 12/05/2022 lot# [id number] MICC B12 INJECTION 12/12/2022 [id number] MICC B12 INJECTION 01/23/2023 1 mL Lot #: [id number] MICC B12 INJECTION 01/30/2023 lot # [id number] MICC B12 INJECTION 02/06/2023 1 mL Lot # [id number] MICC B12 INJECTION 02/13/2023 lot # [id number] MICC B12 INJECTION 02/20/2023 1 mL Lot # [id number] Prolia 05/09/2023 1 Medical (General) History Medical History History ICD Code Hypothyroidism asthma lupus anemia brain anuerysm Pulmonary fibrosis Osteoporosis Surgical History Surgery Date(Month/Year) carpal tunnel release colonoscopy 3 years hysterectomy 1978 gallbladder 1979 Hospitalization History Reason Date(Month/Year) [facility]- BLE edema, 2023 COVID 2020
--- OUTSIDE RECORDS SUMMARY | 2025-09-10 09:30 | XMS_ITS | Clinical Summary ---
Author Organization [facility] Address [address] [facility] [address] [place] [address] Phone Care Team Providers Care Grocery Clerk Checking Name Role Phone Aleksandr Ortiz MD Primary [...] file Insurance MEDICARE PART A & B [facility] MEDICARE PART A & [place] [address] [place] [address] MEDICARE PART A & B [facility] MEDICARE PART A & B [facility] MEDICARE PART A & B Member Subscriber Plan / Payer (Ef fective 2018-Present) Name:Naheed Luna Member ID:[id number] Relation to Subscriber:Self Name:Naheed Luna Subscriber ID:[id number] Payer ID:[id number] Group ID:Not on file Type:Medicare Address: [place] [address] [place] [phone] [facility] MEDICARE PART A & B [facility] Care Teams Grocery Clerk Checking Relationship Specialty Start Date End Date Aleksandr Ortiz MD [address] [place] [address] PCP - General Internal Medicine 12/24/22 Additional Source Comments The information contained in this document represents components of the legal health record. It is not the complete legal health record.[facility]
--- OUTSIDE RECORDS SUMMARY | 2025-09-10 09:31 | XMS_ITS | Encounter Summary ---
Author Organization [facility] Address [address] [place] [address] Care Team Providers Care Toll Mechanic Name Role Phone Shawna Ac MD Primary Care Provider [phone] Encounter Details Date Type Department Care Team (Late st Contact Info) Description 10/29/2014 Orders Only Department of Neurosurgery [facility] Neurosurgery [address] [place] [address] Arden Mc MD [address] [place] [address] Social History Tobacco Use Types Packs/Day Years Used Date Smoking Tobacco: Unknown Comments Unknown Sex and Gender Information Value Date Recorded Sex Assigned at Not on file Legal Sex Female 4:28 PM EST Gender Identity Not on file Sexual Orientation Not on file documented as of this encounter Plan of Treatment Not on file documented as of this encounter Visit Diagnoses Not on filedocumented in this encounter Care Teams Toll Mechanic Relationship Specialty Start Date End Date Shawna Ac MD PCP - General 07/26/14 documented as of this encounter
--- OUTSIDE RECORDS SUMMARY | 2025-09-10 09:31 | XMS_ITS | Patient Health Record ---
Author Organization [facility] Address [address] [place] [address] Care Team Providers Care Volunteer Patient Representative Name Role Phone Richard Mcelroy N.P. Primary Care Provider Ministerio Gama Jr [phone] Allergies Allergen (clinical drug ingredient) Drug/Non Drug Allergy documented on EMR Reaction Allergy Type Onset Date Status denosumab Prolia Unknown Drug Allergy Active azithromycin Azithromycin Unknown Drug Allergy A ctive Iodinated contrast media (substance) Iodinated Contrast Media Unknown Drug Allergy Active rofecoxib Rofecoxib Unknown Drug Allergy Active Substance with 6-xjdhsvz-7-methylgluta ryl-coenzyme A reductase inhibitor mechanism of action (substance) Statins Unknown Drug Allergy Active ciprofloxacin Ciprofloxacin Unknown Drug Allergy Active Reason For Referral No Information Medications Medication SIG (Take, Route, Frequency, Duration) Notes Start Date End Date Status Pyridium 100 MG Tablet 2 tablets after m eals Orally Three times a day Active Levothyroxine Sodium 150 MCG Tablet 1 tablet in the morning on an empty stomach Orally Once a day Active Omeprazole 10 MG Capsule Delayed Release 1 capsule 1/2 to 1 hour before morning meal Orally Once a day Active Magnesium 400 MG Capsule as directed Orally Active Belimumab 400 MG Solution Reconstituted as directed Intravenous Act jere Probiotic Active Losartan Potassium 25 MG Tablet 1 tablet Orally Once a day Active Levalbuterol Tartrate 45 MCG/ACT Aerosol 1 puff as needed Inhalation every 6 hrs Active metFORMIN HCl 500 MG Tablet 1 tablet wit h a meal Orally Once a day Active Vitamin D3 Active CoQ-10 100 MG Capsule as directed Orally Active Cetirizine HCl 10 MG Tablet 1 tablet Ora lly Once a day Active Berberine Chloride 500 MG Capsule as directed Orally Active Vamxfqgcol-BXHX-Ggonhshv 50-325-40 MG/15ML Solution 15 mL as needed Orally every 4 hrs Active Vitamin C 1000 MG Tablet 1 tablet Orally Once a day Active Tirzepatide 10 MG/0.5ML Solution Auto-injector as directed Subcutaneous Active Gammagard Active Zinc 100 MG Tablet 1 tablet Orally Once a day Active Metoprolol Succinate 50 MG Capsule ER 24 Hour Sprinkle 1 capsule Orally Once a day Active Immunizations Vaccine Route Administration Date Status Comme nts Influenza Unknown 09/01/2025 Refused Social History Tobacco Use: Social History Observation Description Date Details (start date - stop date) Never Smoker NA - NA Social History Drug/Alcohol: Social Info Question Answer Notes AUDIT-C (Standard) Did you have a drink containing alcohol in the past year? No Points 0 Interpretation Negative Tobacco Use: Social Info Question Answer Notes Tobacco Control (Standard) Tobacco use: Nonsmoker Additional Details Category Social Info Options Details Miscellaneous: Marital status: Occupation: retired Problems Problem Type SNOMED Code ICD Code Onset Dates Problem Status W/U Status Risk Notes Problem Irritable bowel syndrome (91178993) Irritable bowel syndrome (K58.9) Active confirmed Problem Colitis (79628999) Colitis (K52.9) Active confirmed Problem Gastroesophageal reflux disease (244260807) GERD (gastroesopha geal reflux disease) (K21.9) Active confirmed Vital Signs Temperature 97.1 degrees Fahrenheit 09/01/2025 Blood pressure diastolic 01 mm Hg 09/01/2025 Height 63 in 09/01/2025 Blood pressure systolic 001 mm Hg 09/01/2025 Weight 206.0 lbs 09/01/2025 BMI 36.49 kg/m2 09/01/2025 Encounters Encounter Location Date Provider Diagnosis [facility] [address] [place] [phone] 09/01/2025 Ministerio Quesada Jr GERD (gastroesophageal reflux disease) K21.9 ; Irritable bowel syndrome K58.9 and Colitis K52.9 [facility] [address] [place] [id number] 09/01/2025 Ministerio Quesada Jr Assessments Encounter Date Diagnosis (ICD Code) Assessment Notes Treatment Notes Treatment Clinical Notes Section Notes 09/01/2025 Irritable bowel syndrome (ICD-10 - K58.9) At this time, Naheed is doing well. It sounds like she had an acute episode of colitis that resulted in her hospitalization and resolved. She has no symptoms of colitis now but IBS symptoms seem under decent control. We discussed use of fiber supplementation to help bulk up stools. Reflux symptoms are under good control on her present regimen with omeprazole and Pepcid. We discussed diet, lifestyle modifications, and weight management regarding the treatment of reflux. Outside records will be obtained and reviewed. Follow-up will be in 6 months. She will call if she has any problems. 09/01/2025 GERD (gastroesopha geal reflux disease) (ICD-10 - K21.9) At this time, Naheed is doing well. It sounds like she had an acute episode of colitis that resulted in her hospitalization and resolved. She has no symptoms of colitis now but IBS symptoms seem under decent control. We discussed use of fiber supplementation to help bulk up stools. Reflux symptoms are under good control on her present regimen with omeprazole and Pepcid. We discussed diet, lifestyle modifications, and weight management regarding the treatment of reflux. Outside records will be obtained and reviewed. Follow-up will be in 6 months. She will call if she has any problems. 09/01/2025 Colitis (ICD-10 - K52.9) At this time, Naheed is doing well. It sounds like she had an acute episode of colitis that resulted in her hospitalization and resolved. She has no symptoms of colitis now but IBS symptoms seem under decent control. We discussed use of fiber supplementation to help bulk up stools. Reflux symptoms are under good control on her present regimen with omeprazole and Pepcid. We discussed diet, lifestyle modifications, and weight management regarding the treatment of reflux. Outside records will be obtained and reviewed. Follow-up will be in 6 months. She will call if she has any problems. Plan Of Treatment Next Appt Details Provider Name:Ministerio crowe Jr, 03/07/2026 10:40:00 AM, [address] [place] [address], [address], [place], [address], Insurance Providers Payer Name Payer Address Payer Phone Subscriber Number Group Number Insured Name Patient Relationship to Insured Coverage Start Date Coverage End Date MEDICARE [place] [address] [place] [address] [id number] NAHEED ARGUELLO Self - patient is the insured 8 [facility] [address] [place], [place] [id number] NAHEED ARGUELLO Self - patient is the insured Medical (General) History Medical History History ICD Code MAURO/BiPAP diabetes Pulmonary fibrosis/asthma lupus Multiple sclerosis Nelia's thyroiditis
--- OUTSIDE RECORDS SUMMARY | 2025-09-10 09:31 | XMS_ITS | Encounter Summary ---
Author Organization [facility] Address [address] [place] [address] Care Team Providers Care Laboratory Tester Name Role Phone Shawna Ac MD Primary Care Provider [phone] Reason for Referral * ADVANCED IMAGING (Routine) - Closed Specialty Diagnoses / Procedures Referred By Danni chambers Referred To Contact Radiology Diagnoses Aneurysm Procedures MRI Angiogram Head WO Contrast Arden Mc MD Phone: tel: fax: Referral ID Status Reason Start Date Expiration Date Visits Re quested Visits Authorized [id number] Closed 11/27/2014 05/26/2015 1 1 Encounter Details Date Type Department Care Team (Late st Contact Info) Description 11/27/2014 Orders Only Department of Neurosurgery [address], [place] [address] Arden Mc MD [address] [place] [address] Aneurysm Social History Tobacco Use Types Packs/Day Years Used Date Smoking Tobacco: Unknown Comments Unknown Sex and Gender Information Value Date Recorded Sex Assigned at Not on file Legal Sex Female 4:28 PM EST Gender Identity Not on file Sexual Orientation Not on file documented as of this encounter Plan of Treatment Not on file documented as of this encounter Results * MRI Angiogram Head WO Contrast (11/14/2015 12:03 PM EST) Anatomical Region Laterality Modality Head Magnetic Resonan ce 11/14/2015 3:18 PM EST Narrative 11/14/2015 3:14 PM EST EXAM DESCRIPTION: MRA head without enhancement TECHNIQUE: Multiplanar, multi-sequence MR imaging without enhancement was performed per the MRA Standard Head departmental protocol.. Study was performed on a 1.5 Lauren magnet on 11/14/2015 12:03 pm. COMPARISON: MRA head April 26, 2014. INDICATION: Followup of right MCA bifurcation aneurysm. FINDINGS: Again noted is duplication versus early branching of the right MCA. Stable 4 x 5 mm aneurysm arising from the more superior branch, and points inferiorly from the parent vessel. A small branch arises posteriorly, similar to prior studies. Normal flow related enhancement within the ICAs, in proximal middle cerebral and anterior cerebral arteries bilaterally. A normal anterior communicating artery complex is identified. Small caliber right posterior communicating artery augments flow to the right P1 segment. No definite left posterior communicating artery is identified. Normal flow related enhancement of the codominant vertebral arteries with patent cerebellar artery origins proximally. No occluded segment or hemodynamically significant stenosis. IMPRESSION: 1. 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 See above for details. 2. Otherwise unremarkable intracranial MRA examination. I have reviewed all films of this examination and edited the above dictation. Procedure Note Jose Francisco Watson MD - 11/14/2015 EXAM DESCRIPTION: MRA head without enhancement TECHNIQUE: Multiplanar, multi-sequence MR imaging without enhancement was performedper the MRA Standard Head departmental protocol.. Study was performed on a1.5 Lauren magnet on 11/14/2015 12:03 pm. COMPARISON: MRA head April 26, 2014. INDICATION: Followup of right MCA bifurcation aneurysm. FINDINGS: Again noted is duplication versus early branching of the right MCA. Stable4 x 5 mm aneurysm arising from the more superior branch, and pointsinferiorly from the parent vessel. A small branch arises posteriorly,similar to prior studies. Normal flow related enhancement within the ICAs, in proximal middlecerebral and anterior cerebral arteries bilaterally. A normal anteriorcommunicating artery complex is identified. Small caliber right posteriorcommunicating artery augments flow to the right P1 segment. No definite left posterior communicating artery isidentified. Normal flow related enhancement of the codominant vertebral arteries withpatent cerebellar artery origins proximally. No occluded segment or hemodynamically significant stenosis. IMPRESSION: 1. Duplication versus early branching of the right middle cerebral arterywith stable 4 x 5 mm aneurysm of the superior branch. See above fordetails. 2. Otherwise unremarkable intracranial MRA examination. I have reviewed all films of this examination and edited the abovedictation. us Arden Mc MD IMG MRI ORDERABLES Final Resul t documented in this encounter Visit Diagnoses Diagnosis Aneurysm Other aneurysm of unspecified site Aneurysm Other aneurysm of unspecified site documented in this encounter Care Teams Laboratory Tester Relationship Specialty Start Date End Date Shawna Ac MD PCP - General 07/26/14 documented as of this encounter
--- OUTSIDE RECORDS SUMMARY | 2025-09-10 09:31 | XMS_ITS | Clinical Summary ---
Author Organization [facility] Address [address] [place] [address] Care Team Providers Care Hoop Bending Machine Operator Name Role Phone Shawna Ac MD Primary Care Provider [phone] Allergies Active Allergy Reactions Criticality Noted Date Comments Hydroxychloroquine Other (See Comments) 10/12/2013 Fatigue Lisinopril Other (See Comments) 10/12/2013 Fatigue Nsaids (Non-Steroidal Anti-Inflammatory Drug) Anaphylaxis 10/12/2013 Other Rash 10/12/2013 Adhesive Tape. Rofecoxib Other (See Comments) 10/12/2013 Other Simvastatin Other (See Comments) 10/12/2013 Fatigue Medications prednisone (DELTASONE) 50 MG tablet 1 tab po 13hrs before CT, 1 tab po 7hrs before CT, 1 tab po 1hr before CT 10/27/19 15 Active Text: Levothroid TABS 288mcg 1x daily 10/12/19 14 Active Text: Nystatin Oral Powder 500,000 2x daily 10/12/19 14 Active Text: MethylPREDNISolone TABS 2mg 1x in the am 10/12/19 14 Active Text: Proventil HFA AERS PRN 10/12/19 14 Active Text: PredniSONE TABS PRN 14 Active Text: B-12 1000 MCG Sublingual Tablet Sublingual PLACE 1 TABLET Daily 10/12/19 14 Active Text: Krill Oil CAPS TAKE 1 CAPSULE Daily 10/12/19 14 Active Text: Grape Seed TABS TAKE DIRECTED. 10/12/19 14 Active Text: Turmeric Curcumin Oral Capsule 720MG 1X DAILY 10/12/19 14 Active Text: Vitamin D TABS 5000 UNITS 1X DAILY 10/12/19 14 Active Text: CLA CAPS 800mg 2x day 10/12/19 14 Active Text: Magnesium TABS 400MG 1X DAY 10/12/19 14 Active Text: Pyridium Plus TABS PRN 10/12/19 14 Active aspirin 325 MG tablet TAKE 1 TABLET DAILY. 10/12/19 14 Active losartan (COZAAR) 25 MG tablet TAKE 1 TABLET DAILY. 10/12/19 14 Active cefaclor (CECLOR) 500 mg capsule 2x a day for Lymes 10/12/19 14 Active ADVAIR DISKUS 250-50 mcg/dose DISKUS 2x a day during allergy season 10/12/19 14 Active oxycodone (ROXICODONE) 15 MG immediate release tablet 1-2 every 4-6 hours 10/12/19 14 Active VALIUM 5 mg tablet PRN WHEN SPASMS ARE BAD 10/12/19 14 Active albuterol 2.5 mg /3 mL (0.083 %) nebulizer solution PRN 10/12/19 14 Active FIORICET 50-300-40 mg cap tablet PRN 10/12/19 14 Active fluticasone (FLONASE) 50 mcg/actuation nasal spray INSTILL 1 SQUIRT Daily 10/12/19 14 Active multivitamin with 18 mg iron per tablet TAKE 1 TABLET DAILY. 10/12/19 14 Active coenzyme Q10 100 mg capsule TAKE 1 CAPSULE Daily 10/12/19 14 Active folic acid (FOLVITE) 400 MCG tablet TAKE 1 TABLET DAILY DIRECTED. 10/12/19 14 Active biotin 5 mg cap TAKE 1 CAPSULE DAILY. 10/12/19 14 Active amLODIPine (NORVASC) 10 MG tablet 11 11/04/19 16 Active Active Problems Problem Noted Date Diagnosed Date Text: Dissection Of An Artery 10/29/2014 Overview (12/11/2014): Text: Dissection Of An Artery Social History Tobacco Use Types Packs/Day Years Used Date Smoking Tobacco: Former Comments:quit over 11 years ago Alcohol Use Standard Drinks/Week Comments Yes 0 (1 standard drink = 0.6 oz pur e alcohol) a few times a year Comments Unknown Sex and Gender Information Value Date Recorded Sex Assigned at Not on file Legal Sex Female 4:28 PM EST Gender Identity Not on file Sexual Orientation Not on file Last Filed Vital Signs Vital Sign Reading Time Taken Comments Blood Pressure 148/84 01/11/2014 3:59 PM EDT Pulse 74 01/11/2014 3:59 PM EDT Temperature - - Respiratory Rate 17 04/29/2014 2:23 PM EDT Oxygen Saturation - - Inhaled Oxygen Concentration - - Weight 99.3 kg (219 lb) 11/14/2015 2:20 PM EST Height 170.2 cm (5' 7 ) 11/14/2015 2:20 PM EST Body Mass Index 34.3 11/14/2015 2:20 PM EST Plan of Treatment Not on file [place] [address] [place] [address] Care Teams Hoop Bending Machine Operator Relationship Specialty Start Date End Date Shawna Ac MD PCP - General 07/26/14
--- OUTSIDE RECORDS SUMMARY | 2025-09-10 09:31 | XMS_ITS | Clinical Summary ---
Author Organization [facility], Address [address] [place] [address] Phone Care Team Providers Care Algologist Name Role Phone Shawna Ac MD Primary Care Provider [phone] Allergies Active Allergy Reactions Criticality Noted Date [...] age to complete this topic Insurance Medicare [facility] Care Teams Algologist Relationship Specialty Start Date End Date Shawna Ac MD [address] [place] [address] PCP - General 09/26/20
--- OUTSIDE RECORDS SUMMARY | 2025-09-10 09:31 | XMS_ITS | Encounter Summary ---
Author Organization [facility] Address [address] [place] [id number] Care Team Providers Care Case Specialist Name Role Phone Shawna Ac MD Primary Care Provider [phone] Encounter Details Date Type Department Care Team (Late st Contact Info) Description 10/12/2013 Clinical Conversion Encounter Department of Neurosurgery [address] [address] Tammy Harrington MD [address] [place] [address] Social History Tobacco Use Types Packs/Day Years Used Date Smoking Tobacco: Unknown Comments Unknown Sex and Gender Information Value Date Recorded Sex Assigned at Not on file Legal Sex Female 4:28 PM EST Gender Identity Not on file Sexual Orientation Not on file documented as of this encounter Progress Notes * Tammy Harrington MD - 11/10/2014 3:53 PM EST [id number],CHERYL GRATZ, [place]. Basic Note She is a 58-year-old female self-referral regarding an intracranial aneurysm. Her primary care physician is Dr. Donny Keene. She states she isn't having headaches for approximately one year the headaches are different than headaches she had in the past. He became associated with dizziness and balance difficulty television and she suffered a transient ischemic attack. She had one very severe headache last summer which lasted several days. She was evaluated by a neurologist in October of this past year when MRI and MRA were obtained revealing possible intracranial aneurysms. 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 She has had no recent symptoms. She has a family history of subarachnoid hemorrhage in her father. She was seen by another vascular surgeon in [place] who discussed treatment alternatives. She is now here for a second opinion. Past medical history significant for hypertension, diabetes, transient ischemic attack, hypothyroidism, anemia, microvascular disease, systemic lupus. Medications: One adult aspirin, Violeta thyroxine, losartan, nystatin, methylprednisolone, Advair, Proventil, multivitamins. She has allergies to nonsteroidal anti-inflammatories, adhesive tape, IVP dye, Vioxx, simvastatin, lisinopril, Actonel. Social history: She is retired. She smokes half a pack per day for several years quit 13 years ago. Denies significant alcohol use. Review of systems positive for headaches, dizziness, palpitations, asthma, hearing loss, tinnitus, blurred vision, heartburn, chest pain, shortness of breath, fibromyalgia, hypertension, nausea, thyroid disease. She is awake alert oriented speech is fluent mental status is intact she is in no acute distress he is normocephalic and atraumatic. Her pupils are equal her face is symmetric she ambulates normally. I personally reviewed her formal cerebral arteriogram. He reveals a fusiform dilatation with a small band of the middle cerebral artery. This is consistent with a dissection. I see a small cavernous segment aneurysm measuring 1.5 mm. I see no other significant findings. I reviewed these findings with the patient. We discussed the nature of a spontaneous dissection. We discussed the possibility of hemorrhage versus stroke. We discussed the fact that it may have healed there may be progressive over time. At this juncture I would not recommend any intervention. I would like surveillance once again in 3 months with a CTA. If there is no change we will consider sacrifice with revascularization versus stenting. All the questions concerns were addressed. I will see him back as scheduled Signatures Electronically signed by : TAMMY HARRINGTON MD; Oct 12 2013 4:16PM documented in this encounter Plan of Treatment Not on file documented as of this encounter Visit Diagnoses Not on filedocumented in this encounter Care Teams Case Specialist Relationship Specialty Start Date End Date Shawna Ac MD PCP - General 07/26/14 documented as of this encounter
--- OUTSIDE RECORDS SUMMARY | 2025-09-10 09:31 | XMS_ITS | Clinical Summary ---
Author Organization [facility] Prior to 02/13/[address] [place] [address] Care Team Providers Care County Court Judge Name Role Phone Shawna Ac MD Primary Care Provider [phone] Allergies Active Allergy Reactions Criticality Noted Date [...] age to complete this topic Care Teams County Court Judge Relationship Specialty Start Date End Date Shawna Ac MD [address] [place] [address] PCP - General Family Medicine 01/19/22
--- OUTSIDE RECORDS SUMMARY | 2025-09-10 09:31 | XMS_ITS | Clinical Summary ---
Author Organization [address] [place] [address] [place] [id number] Phone Care Team Providers Care Directory Carrier Name Role Phone Aleksandr Ortiz MD Primary Care Provider [phone] Surgical History Surgery Date Site/Laterality Comments CHOLECYSTECTOMY [...] Comments: Jayesh. Managed by Dr Enriqueta Gabriel product safety compliance leader in [place] Substance dependence, contin uous ([facility] V24, [facility] V28) 12/10/2017 DX:Substance dependence, co ntinuous ([facility]); COMMENT: Opioids Paresthesia of both legs 06/24/2017 DX:Pare sthesia of both legs Vitamin D deficiency 11/11/2017 DX:Vitamin D deficiency Systemic lupus erythematosus ([facility] V24, [facility] V28) 05/05/2018 DX:Systemic lupus erythemato erica ([facility]); COMMENT: Comments: Was seeing Dr Moreno Raynaud's disease 02/11/2018 DX:Raynaud's d isease 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 DX:Proctalgia f ugax Osteoporosis 12/17/2016 DX:Osteoporosis; COMMENT: Comments: Has Vitamin D Deficieny and is followed by Enriqueta Gabriel MD Health Science Writer Major depression, recurrent ([facility] V24) 07/11/2011 DX:Major depression, recurre nt ([facility]) Nephrolithiasis 01/25/2010 DX:Nephrolithias is Lumbar degenerative disc disease 06/13/2016 DX:Lumbar degenerative disc disease Irritable bowel syndrome 01/06/2013 DX:Irri table bowel syndrome; COMMENT: Comments: diagnosed by [facility] colonoscopy negative jul 05 2003 for cancer Hypothyroidism 11/11/2017 DX:Hypothyroidis m Hypogammaglobulinemia ([facility] V24) 01/25/2010 DX:Hypogammaglobulinemia ([facility]); COMMENT: Comments: Was seen by automotive fuel injection servicer in 2001 who ruled out multiple myeloma [...] 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 in [place] put her on BMP a novel medication that according to her caused damage and resulted in surgeries. Her pain management doctor is Dr Montgomery [phone] Gomez [phone]. Diabetes mellitus type 2, un complicated ([facility] V24, [facility] V28) 05/05/2018 DX:Diabetes mellitus type 2 , uncomplicated ([facility]) History of Lyme disease 10/13/2018 DX:Histo [...] Orientation Straight 05/26/2025 11 :12 PM EDT Last Filed Vital Signs Vital Sign [...] Procedure Name Priority Date/Time Associated Diagnosis Comments HEMOGLOBIN A1C Routine 05/25/2025 11:45 AM EDT Primary hypothyroidism Diffuse myofascial pain syndrome Diabetes mellitus ([facility] V24, [facility] V28) [facility] SCREENING DIGITAL Routine 12/01/2018 4:18 PM EDT Encounter for screening mammogram for malignant neoplasm of breast from Last 3 Months or Most Recently Relevant to Health Maintenance Results * Hemoglobin A1c (05/25/2025 11:45 AM EDT) Hemoglobin A1C 6.3 <6.5 % LAB CHEMISTRY METHOD 05/25/2025 5:35 PM EDT [facility] Mean Bld Glu Estim. 134 mg/dL LAB CHEMISTRY METHOD 05/25/2025 5:35 PM EDT [facility] Blood Venous blood specimen / Unknown Venipuncture / Unknown 05/25/2025 11:45 AM EDT 05/25/2025 12:45 PM EDT us Richard Mcelroy [facility] LAB BLOOD ORDERABLES Final Re sult [facility] [address] [place] [address], * [facility] SCREENING DIGITAL (12/01/2018 4:18 PM EDT) Anatomical Region Laterality Modality Mammography 12/01/2018 10:4 8 AM EDT Narrative 12/01/2018 4:18 PM EDT [facility] Diagnostic Imaging Department [address], [place] [id number] Patient: NAHEED LUNA/Age/Sex: 1955 - 63 - F Unit#: [id number] Location/Status: SPDIMAM/REG CLI Mnemonic/Ordering Site: [facility] Ordering Physician: SHAWNA AC MD [facility] Screening Digital - 12/01/18 - 1139 EXAM: [facility] Screening Digital EXAM DATE AND TIME: 12/01/2018 11:40 AM HISTORY: Screening. COMPARISON: 02/13/17, 04/09/13 TECHNIQUE: CC and MLO views of both breasts were obtained using full field digital mammography. Bilateral digital breast tomosynthesis was performed in the MLO projection. Computer aided detection with the [employer] was employed. TISSUE DENSITY: a. The breasts [...] Routine screening mammogram BILATERAL in 1 year. [id number], [id number] 3342F, 7025F Dictating Physician: URVASHI IBARRA MD Electronically Signed by: URVASHI IBARRA MD Dic Date/Time: 12/01/18 1559 Sign date/Time: 12/01/18 2260 Procedure Note Urvashi Ibarra MD - 09/05/2022 [facility] Diagnostic Imaging Department [address] [place] [id number] Patient: NAHEED LUNA /Age/Sex: 1955 - 63 - F Unit#: [id number] Location/Status: SPDIMAM/REG CLI Mnemonic/Ordering Site: [facility] Ordering Physician: SHAWNA AC MD [facility] Screening Digital - 12/01/18 - 1139 EXAM: [facility] Screening Digital EXAM DATE AND TIME: 12/01/2018 11:40 AM HISTORY: Screening. COMPARISON: 02/13/17, 04/09/13 TECHNIQUE: CC and MLO views of both breasts were obtained using fullfield digital mammography. Bilateral digital breast tomosynthesis was performedin the MLO projection. Computer aided detection with the [employer] employed. TISSUE DENSITY: a. The breasts are [...] Routine screening mammogram BILATERAL in 1 year. [id number], [id number] 3342F, 7025F Dictating Physician: URVASHI IBARRA MD Electronically Signed by: URVASHI IBARRA MD Dic Date/Time: 12/01/18 4934 Sign date/Time: 12/01/18 1479 us Shawna Ac MD IMG BI PROCEDURES Final Res ult from Last 3 Months or Most Recently Relevant to Health Maintenance Insurance MEDICARE [facility] Care Teams Directory Carrier Relationship Specialty Start Date End Date Aleksandr Ortiz MD [address] [place] [phone] PCP - General 08/08/22
[2025-09-10 10:31] LABS: MANUAL DIFF FLAG NO
[2025-09-10 10:36] LABS: Hematocrit 44.4 % (37.0-47.0); Hemoglobin 13.9 g/dl (12.0-16.0); Imm Gran Abs Auto 0.06 X10*3/uL (0.00-0.03); Imm Gran Pct Auto 0.7 % (0.0-0.4); Lymphocytes Absolute Auto 1.9 X10*3/uL (1.2-4.9); Mean Corpuscular HGB Conc 31.3 g/dl (31.0-35.0); Mean Corpuscular Hemoglobin 25.9 pg (27.0-33.0); Mean Corpuscular Volume 82.8 fL (80.0-98.0); NRBC Abs Auto 0.000 X10*3/uL (0.0-0.012); NRBC Pct Auto 0.0 /100WBC (0.0-0.2); Platelet Count 217 X10*3/uL (160-400); Red Blood Count 5.36 X10*6/uL (4.20-5.50); White Blood Count 8.6 X10*3/uL (4.8-10.8)
[2025-09-10 10:56] LABS: Alanine Aminotransferase 20 U/L (0-31); Albumin Level 4.3 g/dL (3.5-5.0); Alkaline Phosphatase 102 U/L (39-117); Anion Gap 15 (12-20); Aspartate Amino Transferase 24 U/L (5-31); Blood Urea Nitrogen 13 mg/dL (9-16); Calcium 9.8 mg/dL (8.4-10.2); Carbon Dioxide 22 mmol/L (22-29); Chloride 111 mmol/L (96-108); Cholesterol 204 mg/dL (<200); Estimated Glomerular Filt Rate > 60; HDL Cholesterol 42 mg/dL (>40); Potassium 4.0 mmol/L (3.3-5.1); Sodium 144 mmol/L (135-145); Total Protein 6.9 g/dL (6.5-8.0); Triglycerides 177 mg/dL (<150)
[2025-09-10 11:15] LABS: Thyroid Stimulating Hormone 0.52 uIU/mL (0.32-4.0)
== END 2025-09-10 09:27 | disposition home or self-care (01) ==
LOC: HO.LAB 09:26
PROVIDERS: PCP Nurse Practitioner Acute Care; Visit Provider Nurse Practitioner Acute Care
DX: E11.8 Type 2 diabetes mellitus with unspecified complications (principal); E03.9 Hypothyroidism, unspecified; E78.5 Hyperlipidemia, unspecified
CPT/HCPCS: 36415; 80053; 80061; 83036; 84436; 84443; 85025